=== PATIENT | male | born 1950 | race Caucasian/White ===

== ENCOUNTER 2018-01-16 09:03 | Emergency (ER) | payer MEDICARE, BC, SELFPAY ==
[2018-01-16 09:05] VITALS: BP 141/78; PULSE 74; RESP 16; TEMP 37; O2SAT 96; BMI 22.1
--- NOTE | 2018-01-16 09:33 | ED.VISSUMM ---
- ER Visit Summary Date of Service: 01/16/18 Chief Complaint: Right ear itching and rhinorrhea History of Present Illness: The patient is a 67 M presenting with essentially 4 months of nasal drainage and right ear itching. He has been on multiple rounds of antibiotics, most recently Augmentin which he completed 1 week ago. He has been seen at the [facility] clinic several times for this. He has felt drainage down the back of his throat which has caused some mild throat irritation but no significant throat pain. He has not been coughing or having any shortness of breath/wheezing. He has had sinus pressure but no facial swelling or redness. His right ear has been itching but it is not painful. Physical Examination: He does have fluid behind his right tympanic membrane but it does not appear infected. He has turbinate swelling bilaterally and clear secretions of both nares. He has posterior oropharyngeal erythema and drainage noted in the posterior oropharynx but no evidence of throat infection. His lungs are clear bilaterally with good air movement. Heart tones are regular without murmur. Abdomen is soft and nontender. No rash. No sinus tenderness or facial crepitus. Test Results: None performed Emergency Department Course and Treatment: At this point, I think putting him on another antibiotic would be doing him a disservice. This has been somewhat of a chronic problem for him and he may in fact have seasonal allergies. After discussion with him, we elected to treat him with Afrin for 3 days and try a short course of steroids. He has no cough and his lungs are clear so I do not think he needs a chest x-ray. I think he should follow-up with an ENT specialist given the chronicity of his issues. He was given a referral. Treatment Plan: Follow up with ENT Disposition: Home stable condition Impression: Initial encounter upper respiratory infection This note was generated with [employer] dictation software. It may contain incorrect words, spelling, and punctuation that were not noted in review of the chart prior to signing ED Disposition - Plan for ED Patient: Chief Complaint: Cold Sx Instructions: ED Upper Resp Infec No Abx Tx Prescriptions: Prednisone 40 mg PO DAILY 5 Days #10 tablet Referrals: Marcelo Martinez MD [STAFF PHYSICIAN] -
--- NOTE | 2018-01-16 09:39 | ED.DCSUM_ITS ---
- ER Visit Summary Date of Service: 01/16/18 Chief Complaint: [] History of Present Illness: The patient is a 67 M [] Physical Examination: [] Test Results: [] Emergency Department Course and Treatment: [] Treatment Plan: [] Disposition: [] Impression: [] This note was generated with [employer] dictation software. It may contain incorrect words, spelling, and punctuation that were not noted in review of the chart prior to signing ED Disposition - Plan for ED Patient: Chief Complaint: Cold Sx Instructions: ED Upper Resp Infec No Abx Tx Prescriptions: Prednisone 40 mg PO DAILY 5 Days #10 tablet Referrals: Marcelo Martinez MD [STAFF PHYSICIAN] -
[2018-01-16] MEDS: Oxymetazoline 0.05% 1 SPRAY SPRAY.BTL NASAL (09:46)
== END 2018-01-16 09:52 | disposition home or self-care (01) ==
LOC: ED 09:37
PROVIDERS: Emergency Provider Emergency Medicine; Family Provider Family Medicine; PCP Family Medicine
DX: J06.9 Acute upper respiratory infection, unspecified (principal); H93.8X1 Other specified disorders of right ear; J44.9 Chronic obstructive pulmonary disease, unspecified; Z79.899 Other long term (current) drug therapy; Z85.9 Personal history of malignant neoplasm, unspecified
CPT/HCPCS: 99282

== ENCOUNTER → 2018-08-26 12:43 | Outpatient (CLI) | payer MEDICARE, BC, SELFPAY ==
--- NOTE | 2018-08-26 12:46 | ECHOD_ITS ---
Reason For Study: Pre Op clearance Procedure This was a 2D Doppler, Color Flow transthoracic echocardiogram. The study was technically difficult. Exam performed in department. Left Ventricle Normal LV size. The estimated ejection fraction is 60 %. Stage 1 diastolic dysfunction. Transmitral doppler flow suggestive of impaired relaxation of left ventricle. No regional wall motion abnormalities noted. Right Ventricle Normal RV size. Normal systolic function. Atria Normal left atrium. Normal right atrium. Mitral Valve Normal mitral valve. Tricuspid Valve Normal tricuspid valve. Aortic Valve The aortic valve is not well visualized. Pulmonic Valve Normal pulmonic valve. Great Vessels Normal aortic root. The pulmonary artery is normal size. Normal inferior vena cava. Pericardium/Pleural No pericardial effusion. MMode/2D Measurements & Calculations LVIDd: 4.7 cm IVSd: 0.94 cm Ao root diam: 3.5 cm LVIDs: 3.1 cm LVPWd: 0.99 cm RVDd: 3.0 cm FS: 34.8 % LAV(MOD-bp): 55.8 ml LA A4 area: 17.6 cm2 LA dimension(2D): 3.0 cm LAV(MOD-bp) Indexed: 29.2 ml/m2 LAV(MOD-sp2): 51.9 ml LAV(MOD-sp4): 50.9 ml RA A4 area: 13.4 cm2 Time Measurements MV dec time: 0.26 sec Doppler Measurements & Calculations MV E max ace: 67.9 cm/sec Lat Peak E' Ace: 9.0 cm/sec Med Peak E' Ace: 7.2 cm/sec MV A max ace: 80.7 cm/sec E/E' lat: 7.6 E/E' med: 9.5 MV E/A: 0.84 Ao V2 max: 101.8 cm/sec LV V1 max: 78.3 cm/sec PA V2 max: 57.6 cm/sec Ao max P.2 mmHg LV V1 max P.5 mmHg TR max ace: 189.2 cm/sec TR max P.3 mmHg Interpretation Summary Normal LV size. The estimated ejection fraction is 60 %. Stage 1 diastolic dysfunction. Transmitral doppler flow suggestive of impaired relaxation of left ventricle Ordering Physician: Angel Hale Referring Physician: Aayush Soto Performed By: Nydia Garcia, ALECIA, RVT
== END ==
PROVIDERS: Family Provider Family Medicine; PCP Family Medicine; Referring Provider Internal Medicine Cardiovascular Disease; Visit Provider Internal Medicine Cardiovascular Disease
DX: Z01.810 Encounter for preprocedural cardiovascular examination (principal)
CPT/HCPCS: 93306

== ENCOUNTER → 2018-08-30 06:30 | Outpatient (CLI) | payer MEDICARE, BC, SELFPAY ==
--- NOTE | 2018-08-30 10:32 | STRESSREP ---
Stress Test Report Exercise myocardial perfusion stress test. 68-year-old man with a lesion for preoperative surgery. Stress protocol: Resting EKG demonstrates normal sinus rhythm with a rate of 66 bpm normal intervals noted resting blood pressure 144/82 mmHg. The patient exercised according to regular Krystian protocol for total duration of 3 minutes and 45 seconds attaining a maximum heart rate of 151 bpm which was 100% of maximum predicted heart rate the maximum workload was 5.5 metabolic equivalents. The patient maintained sinus rhythm throughout the recording. At rest there were no ST or T wave changes noted suggest abnormal flow reserve at peak infusion no ST or T wave changes were noted suggest abnormal flow reserve. No clinical angina was noted the resting blood pressure is 144/82 with a peak blood pressure 180/70 6 cm of mercury. Myocardial perfusion protocol. 12.0 mCi of technetium 99m sestamibi was injected at rest. Patient exercised according to regular Krystian protocol for 3 minutes and 45 seconds attaining 5.5 metabolic equivalents at peak exercise 35.7 mCi of technetium 99m sestamibi was injected stress images were obtained stress and rest images were reconstructed and compared in the short axis vertical long horizontal long axis. Gated images were also obtained the next Perfusion SPECT analysis: Review of the stress images demonstrate normal uptake of tracer noted in all areas of the myocardium. The resting images similarly demonstrate normal uptake of tracer noted in all areas of the myocardium. No areas of reversibility are noted suggest ischemia no previous infarct is noted. Gated SPECT analysis: The gated ejection fraction is noted to be 70%. Conclusion: Normal pharmacologic myocardial perfusion stress test. Preserved ejection fraction.
== END ==
PROVIDERS: Family Provider Family Medicine; PCP Family Medicine; Referring Provider Internal Medicine Cardiovascular Disease; Visit Provider Internal Medicine Cardiovascular Disease
DX: Z01.810 Encounter for preprocedural cardiovascular examination (principal)
CPT/HCPCS: 78452; 93017; A9500; A4216

== ENCOUNTER 2024-04-23 12:27 | Inpatient (IN) | payer MEDICARE, OTHER, SELFPAY ==
[2024-04-23] VITALS (7 sets, daily range): BP systolic 124–158; BP diastolic 66–74; PULSE 60–93; RESP 16–25; TEMP 36.1–36.6; O2SAT 90–98; BMI 21.1; BMI 20.9
--- NOTE | 2024-04-23 12:43 | EKG12_ITS ---
Test Reason : SOB Blood Pressure : / mmHG Vent. Rate : 066 BPM Atrial Rate : 066 BPM P-R Int : 114 ms QRS Dur : 080 ms QT Int : 390 ms P-R-T Axes : 059 003 060 degrees QTc Int : 408 ms Normal sinus rhythm Normal ECG Confirmed by ROSALIE CALIX, JORGITO ([id number]), senior editor MEDARDO CHRISTINE ([id number]) on 04/27/2024 9:36:19 AM Referred By: Confirmed By:ASHLEIGH WIGGINS MD
--- NOTE | 2024-04-23 12:44 | EDS_ITS ---
HPI History of Present Illness Chief Complaint: Shortness of Breath Narrative Narrative: 73-year-old male, former smoker, past medical history of hypertension hyperlipidemia presents with shortness of breath that he has had for 3 weeks. He has occasional cough but no fevers or chills. He states he also gets dyspnea on exertion. Initially he had gone to the [facility] approximately 2 weeks ago and finished a Z-Maxim and was given prednisone as well. Today, he went to the [facility] urgent care. He states he received a phone call after he had left and received prescriptions for an albuterol inhaler and Tessalon. Chest x- ray had been performed, and the provider called him back and told him that his right lung was half full of fluid with pneumonia. After discussion with the emergency physician, patient reports that he was told to come to the emergency department for further evaluation. [facility] Medical History Acute rhinosinusitis URI (upper respiratory infection) Elevated blood pressure reading in office without diagnosis of hypertension (~2014) GERD (gastroesophageal reflux disease) Essential (primary) hypertension Hyperlipidemia Abdominal aortic aneurysm (AAA) Home Medications ?Medication ?Instructions ?Recorded ?Last Taken ?Type pravastatin 40 mg tablet 40 mg PO DAILY 01/16/18 Unknown History aspirin 81 mg tablet,delayed 81 mg PO DAILY 08/17/18 Unknown History release (Adult Low Dose Aspirin) lisinopril 5 mg tablet 5 mg PO DAILY #90 tabs 08/18/18 Unknown Rx fexofenadine 180 mg tablet 180 mg PO DAILY #30 tabs 07/29/23 Unknown Rx prednisone 50 mg tablet 50 mg PO DAILY #5 tabs 07/29/23 Unknown Rx azithromycin 250 mg tablet See Rx Instructions PO .COMPLEX #6 04/15/24 Unknown Rx tabs Allergy/AdvReac Type Severity Reaction Status Date / Time No Known Allergies Allergy Verified 04/23/24 12:29 Family History Father Heart disease Hypertension Myocardial infarction TAA Sister Hypertension Mother Hypertension Surgical History History of ear surgery History of inguinal hernia repair Social History Smoking Status: Former smoker ROS ROS ED ROS Narrative Constitutional: No fever, no chills. HEENT: No sore throat. No neck pain. No loss of vision. No rhinorrhea. Cardiovascular: No chest pain. No palpitations. No pedal edema. Respiratory: Positive cough, 3 weeks of dyspnea on exertion and shortness of breath. Abdominal: No abdominal pain. No nausea. No vomiting. Genitourinary: No dysuria. No hematuria. Musculoskeletal: No myalgias. No arthralgias. Neurologic: No headaches. No dizziness. No lightheadedness. Skin: No rash. No change in color. Psychiatric: No depression. No anxiety. EXAM Physical Exam Narrative Exam Narrative: Afebrile. Vital signs noted. HEENT: Normocephalic. Atraumatic. PERRL, EOMI. Neck soft and supple. No point tenderness or step off. Cardiovascular: Regular rate and rhythm. No murmurs, rubs, or gallops appreciated. Respiratory: No tachypnea. Lungs clear to auscultation bilaterally. Decreased breath sounds right base about senior care up through lung field. Gastrointestinal: Abdomen soft, nontender, with normoactive bowel sounds. No rebound or guarding. Neurological: Awake. Alert. Nonfocal, nonlateralizing. Skin: No rash. Normal color. No pallor. Musculoskeletal: No pedal edema. Full range of motion extremities. Const Vital Signs: 04/23/24 12:29 04/23/24 12:36 04/23/24 12:58 Temperature 97.8 F Temperature Source Temporal Pulse Rate 88 Respiratory Rate 16 Respiratory Effort Normal Non-Labored Respiratory Depth Normal Respiratory Pattern Normal Blood Pressure 152/66 H Blood Pressure Mean 94 Pulse Ox 95 Oxygen Delivery Method Room Air Room Air Room Air 04/23/24 14:00 Temperature Temperature Source Pulse Rate 62 Respiratory Rate 25 H Respiratory Effort Respiratory Depth Respiratory Pattern Blood Pressure 144/74 H Blood Pressure Mean 97 Pulse Ox 96 Oxygen Delivery Method Room Air MDM MDM MDM Narrative Medical decision making narrative: Concern is for pleural effusion. With it being reportedly one-sided, suspicion is higher for transudate versus exudate. Also the differential lipid CHF versus COPD versus anemia for his increasing shortness of breath and dyspnea on exertion. I have low suspicion for ACS because the history and physical does not support ischemic pain. Initially, I discussed with the patient that on the weekend at this facility, I have no means to have ultrasound-guided thoracentesis performed. I will look for other reasons for him to be short of breath, but it is suspected that he has more of a pleural effusion. Also the differential would be COPD as he is a former smoker but quit in 2010. He may have CHF as well. EKG was obtained and interpreted by myself independently as normal sinus rhythm at 66 bpm without ectopy or acute ST changes. No STEMI. I reviewed his laboratory work and he has normal white count of 6.9 with hemoglobin normal at 13.9, hematocrit 41.8, platelet count normal at 283. Sodium is low at 129 with normal potassium of 4.1, chloride 96. This may be mild dehydration as well. Creatinine slightly elevated at 1.36, ALT low at 14 with AST 17. Alk phos is slightly elevated at 132 which I think is nonspecific. Troponin is normal at 7 so I doubt ACS/non-STEMI. I feel this is a 6-hour troponin as he has been having shortness of breath for 3 weeks. BNP is normal at 38.5 so I doubt CHF. CT of the chest without contrast does show a moderate to large pleural effusion with atelectasis but no pneumothorax, no mass or pneumonia. I do not feel antibiotics are indicated. His ambulatory pulse ox was 87 to 88% on room air. Given his hypoxia, large pleural effusion, and hyponatremia, I discussed the patient with Dr. Raúl penn for admission to the PCU. He is in stable condition. History & Record Review Discussion w/independent historian: Patient Lab Data Attestation: I reviewed the patient's lab results. Labs: Laboratory Results - last 24 hr 04/23/24 12:50 WBC 6.9 RBC 4.76 Hgb 13.9 Hct 41.8 MCV 87.8 MCH 29.2 MCHC 33.3 RDW Std Deviation 43.0 RDW Coeff of Wilbert 13.3 Plt Count 283 MPV 9.4 Immature Gran % (Auto) 0.600 Neut % (Auto) 82.2 H Lymph % (Auto) 10.1 L [place] % (Auto) 6.4 Eos % (Auto) 0.6 Baso % (Auto) 0.1 Absolute Neuts (auto) 5.7 Absolute Lymphs (auto) 0.70 L Nucleated RBC % 0 Sodium 129 L Potassium 4.1 Chloride 96 L Carbon Dioxide 26.0 Anion Gap 7 BUN 13 Creatinine 1.36 H Estim Creat Clear Calc 45.47 Est GFR (MDRD) Af Amer 66 Est GFR (MDRD) Non-Af 54 L BUN/Creatinine Ratio 9.6 L Glucose 104 Calcium 8.5 Total Bilirubin 0.60 AST 17 ALT 14 L Alkaline Phosphatase 132 H Troponin I High Sens 7 B-Natriuretic Peptide 38.5 Total Protein 6.5 Albumin 3.1 L Globulin 3.4 Albumin/Globulin Ratio 0.9 Radiography Diagnostic Testing: Clinical Impression(s) from Imaging Studies Chest CT 04/23/24 12:49 IMPRESSION: 1. Moderate to large right pleural effusion with compressive atelectatic changes of the right lower lobe. 2. Diffuse emphysematous changes. 3. No focal consolidation otherwise is seen. Electronically Signed: Rodolfo Lerma MD at 13:46 EDT , Discharge Plan Dx/Rx/DC Orders Clinical Impression: Pleural effusion on right, Hypoxia, SOB (shortness of breath), Hyponatremia Disposition Disposition: Acute Care Hospital [facility]
--- NOTE | 2024-04-23 12:49 | CT_ITS ---
INDICATION: Pleural effusion EXAMINATION: CT CHEST WITHOUT CONTRAST - CT Chest W/O Contrast Injection TECHNIQUE: Helically acquired images were obtained of the chest. The protocol utilizes one or more of the following dose reduction techniques: automated exposure control, adjustment of mA and/or kV according to patient size,and/or use of iterative reconstruction technique. IV Contrast dosage and agent: None. RADIATION DOSAGE (If Supplied By Facility): CTDIvol = ( 10.42 ) mGy, DLP = ( 484.47 ) mGycm COMPARISON: Prior study dated: 09/21/2010 FINDINGS: LUNGS, PLEURA AND LARGE AIRWAYS: Large right pleural effusion with compressive atelectatic changes of the right lower lobe. Right upper pleural calcifications. Otherwise moderate to severe emphysematous changes bilaterally. No focal consolidation is seen. No pneumothorax. THYROID: No thyroid lesions. HEART AND PERICARDIUM: Heart size is normal. Possible trace of pericardial effusion. CORONARY ARTERIES: Coronary artery calcification is seen. VESSELS: Atherosclerotic calcifications of the thoracic aorta without evidence of aneurysm. MEDIASTINUM AND NICOLÁS: No mediastinal or hilar adenopathy. Esophagus is unremarkable. No hiatal hernia. UPPER ABDOMEN: Partially visualized proximal abdominal aortic aneurysm measuring up to 4.6 cm with an endoluminal stent. BONES: No suspicious lytic or blastic abnormality. CT/Chest without Contrast IMPRESSION: 1. Moderate to large right pleural effusion with compressive atelectatic changes of the right lower lobe. 2. Diffuse emphysematous changes. 3. No focal consolidation otherwise is seen. Electronically Signed: Rodolfo Lerma MD at 13:46 EDT ,
--- NOTE | 2024-04-23 12:58 | NURSING ---
NO OLD EKGS
[2024-04-23 12:59] LABS: Absolute Neutrophil Count 5.7 X10^3/uL (2.0-7.7); Basophil# 0.01 X10^3/uL; Basophil% 0.1 % (0-1); Eosinophil# 0.04 X10^3/uL; Eosinophils% 0.6 % (0-5); Hematocrit 41.8 % (40-54); Hemoglobin 13.9 g/dL (13.0-16.5); Lymphocyte % 10.1 % (19-41); Mean Corp Hgb Conc 33.3 g/dL (32-36); Mean Corpuscular Hgb 29.2 pg (27.0-32.0); Mean Corpuscular Volume 87.8 fL (80-94); Mean Platelet Vol. 9.4 fl (6.2-12.0); Monocyte# 0.44 X10^3/uL; Monocyte% 6.4 % (0-10); NRBC Flagged by Analyzer 0 % (0-5); Neutrophil # 5.68 X10^3/uL (2.7-7.7); Neutrophil % 82.2 % (47-70); Platelet Count 283 K/mm3 (150-450); RBC Distribution Width CV 13.3 % (11.6-14.6); Red Blood Count 4.76 M/mm3 (4.6-6.2); White Blood Count 6.9 K/mm3 (4.4-11.0)
[2024-04-23 13:28] LABS: ALB/GLOB Ratio 0.9 RATIO (0.9-2.4); AST(SGOT) 17 U/L (15-37); Alanine Aminotransfer ALT/SGPT 14 U/L (16-61); Albumin, Serum 3.1 g/dL (3.2-5.0); Alkaline Phosphatase 132 U/L (45-117); Anion Gap 7 (5-15); BUN 13 mg/dL (7-18); BUN/Creat Ratio 9.6 RATIO (10-20); Calcium,Total 8.5 mg/dL (8.5-10.1); Chloride 96 mmol/L (98-107); Creatinine, Serum 1.36 mg/dL (0.70-1.30); EST Glomerular Filtration Rate 54 mL/min (>60); Est Glom Filt Rate - Afr Amer 66 mL/min (>60); Estimated Creatinine Clearance 45.47 ml/min; Globulin 3.4 g/dL (2.2-4.2); Glucose 104 mg/dL (74-106); Potassium 4.1 mmol/L (3.5-5.1); Protein, Total 6.5 g/dL (6.4-8.2); Sodium Level 129 mmol/L (136-145); Troponin-I HS 7 pg/mL (3.0-78.0)
[2024-04-23 13:49] LABS: BNP,B-Type NATRIURETIC PEPTIDE 38.5 pg/mL (0-100)
--- NOTE | 2024-04-23 14:13 | PCM.HP.STD ---
HPI - General General Date of Admission: 04/23/24 Date of Service: 04/23/24 Chief Complaint: Shortness of breath HPI Narrative BUZZ PUGH, is a 73 M who presents with past medical history is again for emphysema, essential hypertension who presented with shortness of breath. Patient symptoms started 4 weeks prior to his admission. His symptoms initially started with cough which was productive. This later progressed to shortness of breath which was worsening with activity relieved with rest. Patient denied any subjective fever no chills. Denied any swelling involving both lower extremities. He had apparently been treated for bronchitis by his PCP with Zithromax as outpatient, His symptoms however did not improve necessitating patient presenting to the emergency department. In the ED workup including CT of the chest revealed moderate to large right-sided pleural effusion. Patient was also found to be hyponatremic. Subsequently admitted to monitored bed for further evaluation [facility] Medical History Acute rhinosinusitis URI (upper respiratory infection) Elevated blood pressure reading in office without diagnosis of hypertension (~2014) GERD (gastroesophageal reflux disease) Essential (primary) hypertension Hyperlipidemia Abdominal aortic aneurysm (AAA) Home Medications ?Medication ?Instructions ?Recorded ?Last Taken ?Type pravastatin 40 mg tablet 40 mg PO DAILY high cholesterol 01/16/18 04/22/24 History aspirin 81 mg tablet,delayed 81 mg PO DAILY heart health 08/17/18 04/22/24 History release (Adult Low Dose Aspirin) lisinopril 5 mg tablet 2.5 mg PO DAILY hypertension 04/23/24 04/22/24 History Allergy/AdvReac Type Severity Reaction Status Date / Time No Known Allergies Allergy Verified 04/23/24 12:29 Family History Father Heart disease Hypertension Myocardial infarction TAA Sister Hypertension Mother Hypertension Surgical History History of ear surgery History of inguinal hernia repair Social History Smoking Status: Former smoker ROS ROS Narrative GENERAL: denies fever, chills, night sweats, weight loss, anorexia HEENT: denies headache, sinus congestion, or drainage, dysphagia RESPIRATORY: cough, sputum production, shortness of breath, dyspnea on exertion CARDIAC: denies chest pain, palpitations, orthopnea, PND GASTROINTESTINAL: denies abdominal pain, nausea, vomiting, melena, GENITOURINARY: denies dysuria, urgency, frequency, heamaturia EXTREMITY: denies swelling MUSCULOSKELETAL: denies current joint pain or tenderness NEUROLOGIC: denies focal numbness, weakness, tingling HEMATOLOGIC: denies easy bruising and/or hemorrhage INTEGUMENT: denies rashes PSYCHIATRIC: denies suicidal or homicidal ideation Vital Signs Vital Signs Vital Signs: 04/23/24 12:29 04/23/24 12:36 04/23/24 12:58 Temperature 97.8 F Temperature Source Temporal Pulse Rate 88 Respiratory Rate 16 Respiratory Effort Normal Non-Labored Respiratory Depth Normal Respiratory Pattern Normal Blood Pressure 152/66 H Blood Pressure Mean 94 Pulse Ox 95 Oxygen Delivery Method Room Air Room Air Room Air 04/23/24 14:00 Temperature Temperature Source Pulse Rate 62 Respiratory Rate 25 H Respiratory Effort Respiratory Depth Respiratory Pattern Blood Pressure 144/74 H Blood Pressure Mean 97 Pulse Ox 96 Oxygen Delivery Method Room Air Weight Weight: 68.5 kg Body Mass Index (BMI) 21.1 Physical Exam Narrative GENERAL: cooperative HEENT: Atraumatic; normocephalic EYES; Anicteric, Normal Conjunctiva NECK; supple, normal thyroid, RESPIRATORY: Diminished to auscultation R >L CARDIOVASCULAR: Regular S1 S2, GI: soft, normoactive bowel sounds, : No Renal angle tenderness; EXTREMITIES: No edema, no clubbing, MUSCULOSKELETAL: no muscle wasting NEURO: Awake; no lateralizing signs. SKIN: No Rash PSYCH; Flat affect Results Lab / Micro Data 04/23/24 12:50 04/23/24 12:50 Labs: Laboratory Results - last 24 hr 04/23/24 12:50: WBC 6.9, RBC 4.76, Hgb 13.9, Hct 41.8, MCV 87.8, MCH 29.2, MCHC 33.3, RDW Std Deviation 43.0, RDW Coeff of Wilbert 13.3, Plt Count 283, MPV 9.4, Immature Gran % (Auto) 0.600, Neut % (Auto) 82.2 H, Lymph % (Auto) 10.1 L, [place] % (Auto) 6.4, Eos % (Auto) 0.6, Baso % (Auto) 0.1, Absolute Neuts (auto) 5.7, Absolute Lymphs (auto) 0.70 L, Nucleated RBC % 0, Sodium 129 L, Potassium 4.1, Chloride 96 L, Carbon Dioxide 26.0, Anion Gap 7, BUN 13, Creatinine 1.36 H, Estim Creat Clear Calc 45.47, Est GFR (MDRD) Af Amer 66, Est GFR (MDRD) Non-Af 54 L, BUN/Creatinine Ratio 9.6 L, Glucose 104, Calcium 8.5, Total Bilirubin 0.60, AST 17, ALT 14 L, Alkaline Phosphatase 132 H, Troponin I High Sens 7, B-Natriuretic Peptide 38.5, Total Protein 6.5, Albumin 3.1 L, Globulin 3.4, Albumin/Globulin Ratio 0.9 Imaging Radiology Impression Chest CT 04/23/24 12:49 IMPRESSION: 1. Moderate to large right pleural effusion with compressive atelectatic changes of the right lower lobe. 2. Diffuse emphysematous changes. 3. No focal consolidation otherwise is seen. Electronically Signed: oRdolfo Lerma MD at 13:46 EDT , Assessment & Plan Assessment/Plan (1) Pleural effusion on right: PLAN: Plan Patient is a 73-year-old gentleman presented with progressive shortness of breath found to have significant right-sided pleural effusion and hyponatremia admitted to a monitored bed for further management 1. Acute dyspnea ? Secondary to right-sided pleural effusion suspected congestive heart failure and emphysema. Patient has been admitted to a monitored bed with treatment of the underlying etiology. Patient placed on supplemental oxygen titrated to keep oxygen saturation greater than 90 2. Right-sided pleural effusion ? Parapneumonic versus congestive heart failure. Patient started on diuretic therapy, placed on fluid restriction, strict input output, daily weight ordered BMP and a 2D echo. If patient right-sided pleural effusion does not respond to diuretic therapy patient may need to undergo ultrasound-guided thoracocentesis for further evaluation to rule out other possible etiology including malignancy 3. COPD with acute exacerbation - Patient started on bronchodilator treatment, systemic steroid as well as antibiotic therapy. Patient placed on oxygen titrated to keep saturation greater than 90. 4. Hyponatremia ? Fluid overload status versus SIADH. Ordered urine sodium serum and urine osmole. Patient currently on diuretic therapy repeat labs ordered for a.m. 5. Renal failure ? Baseline creatinine unknown.?? Vascular congestion from congestive heart failure. Patient being managed with diuretic therapy as discussed above ordered renal ultrasound 6. Dyslipidemia -Patient is on statin therapy, continued at home dose 7. Hypertension - Blood pressure controlled, home medications continued with dose adjustment as needed 8. DVT prophylaxis -SC heparin Advance planning; did discuss with the patientregarding advanced directives as well as CODE STATUS. Did explain the various scenarios involved ( FULL CODE, DNR CCA, DNR CCA with no intubation, and DNR CC and what each meant) patient elected to remain full code with CPR and intubation if needed. Order was placed. Time spent on discussion 16 minutes. Charges/Coding Multi Select Codes Visit Charges Visit Charges: 63503 Init [place] [id number] Hospitalists' Procedures Procedures: 62116 Advncd Care Plan 30 Min
--- NOTE | 2024-04-23 14:45 | NURSING ---
PCU KITTOE HYPOXIA, PLEURAL EFFSUION, COPD
--- NOTE | 2024-04-23 15:03 | ECHOCS_ITS ---
Reason For Study: CONGESTIVE HEART FAILURE Procedure This was a 2D Doppler, Color Flow transthoracic echocardiogram. The study was technically difficult. The study was technically limited. Contrast injection was performed. Exam performed portable in patient room. Left Ventricle Normal LV size. The estimated ejection fraction is 70 %. No evidence for diastolic dysfunction. No regional wall motion abnormalities noted. Right Ventricle Normal RV size. Normal systolic function. Atria Normal left atrium. Normal right atrium. No doppler evidence for ASD. Mitral Valve There is no mitral valve stenosis. No mitral valve insufficiency. Tricuspid Valve There is no tricuspid stenosis. Unable to estimate RV systolic pressure due to inadequate jet, pulmonary artery pressure probably normal. Aortic Valve Trisinus/trileaflet aortic valve. There is no aortic stenosis. No aortic valve insufficiency. Pulmonic Valve There is no pulmonic valvular stenosis. No pulmonic valve insufficiency. Great Vessels Normal aortic root. Pericardium/Pleural Trivial pericardial effusion. Medication Diluted definity 1ml given slow IV push to enhance endocardial definition. MMode/2D Measurements & Calculations LVIDd: 3.1 cm IVSd: 0.90 cm Ao root diam: 2.9 cm LVIDs: 1.6 cm LVPWd: 0.97 cm RVDd: 3.0 cm FS: 50.1 % LAV(MOD-sp4): 6.6 ml LVAd ap4: 23.3 cm2 LVAd ap2: 21.7 cm2 LVLd ap4: 7.8 cm LVLd ap2: 7.5 cm EDV(MOD-sp4): 57.0 ml EDV(MOD-sp2): 52.7 ml EDV(sp4-el): 59.5 ml EDV(sp2-el): 53.5 ml LVAs ap4: 11.4 cm2 LVAs ap2: 12.1 cm2 LVLs ap4: 6.4 cm LVLs ap2: 6.3 cm ESV(MOD-sp4): 16.9 ml ESV(MOD-sp2): 20.3 ml ESV(sp4-el): 17.3 ml ESV(sp2-el): 19.6 ml EF(MOD-sp4): 70.4 % EF(MOD-sp2): 61.5 % EF(sp4-el): 70.9 % SV(MOD-sp4): 40.2 ml SV(MOD-sp2): 32.4 ml SV(sp4-el): 42.2 ml LA A4 area: 4.9 cm2 LA dimension(2D): 3.0 cm RA A4 area: 5.1 cm2 TAPSE: 1.5 cm Time Measurements MV dec time: 0.19 sec Doppler Measurements & Calculations MV E max ace: 51.7 cm/sec Lat Peak E' Ace: 9.2 cm/sec Med Peak E' Ace: 9.0 cm/sec MV A max ace: 77.0 cm/sec E/E' lat: 5.6 E/E' med: 5.8 MV E/A: 0.67 Ao V2 max: 176.7 cm/sec PA V2 max: 135.6 cm/sec MV dec slope: 270.1 cm/sec2 Ao max P.5 mmHg Ao V2 mean: 125.4 cm/sec Ao mean P.0 mmHg Ao V2 VTI: 26.1 cm ECHO/Echo Complete W/ Contrast Interpretation Summary The estimated ejection fraction is 70 %. No evidence for diastolic dysfunction. Trivial pericardial effusion. Ordering Physician: Raúl Lam Referring Physician: MD Brent Castro Performed By: Maria Luisa Chavez RDCS
[2024-04-23] MEDS: 0.9% Saline Lock 10 ML Syringe IV (15:45)
[2024-04-23] MEDS: Furosemide 40 MG/4 ML Vial IV ×2 (15:45→21:14)
[2024-04-23 16:02] LABS: Troponin-I HS 7 pg/mL (3.0-78.0)
[2024-04-23 16:04] LABS: BNP,B-Type NATRIURETIC PEPTIDE 41.1 pg/mL (0-100)
[2024-04-23 17:01] LABS: Urine Sodium 109 mmol/L (Not Establ.)
[2024-04-23 17:33] LABS: Osmolality, Urine 232 mOsm/KG
[2024-04-23 18:43] LABS: Troponin-I HS 8 pg/mL (3.0-78.0)
[2024-04-23 19:56] LABS: Osmolality, Serum 275 mOsm/KG (280-301)
[2024-04-23] MEDS: Ipratropium/Albuterol Sulfate 3 ML AMPUL.NEB INHALATION ×2 (20:23→23:58)
[2024-04-23] MEDS: Heparin Injection (Vial) 5,000 UNIT/ML VIAL 5000 UNIT SC (21:14)
[2024-04-23] MEDS: Cefdinir 300 MG Capsule PO (21:14)
[2024-04-23] MEDS: guaiFENesin 10 ML UDC (200MG/10ML) 20 ML PO (21:16)
[2024-04-23] MEDS: Calcium Carbonate 500 MG Tablet 1000 MG PO (22:15)
[2024-04-24] VITALS (8 sets, daily range): BP systolic 102–123; BP diastolic 54–73; PULSE 88–112; RESP 14–20; TEMP 36.3–36.7; O2SAT 91–901
[2024-04-24] MEDS: Ipratropium/Albuterol Sulfate 3 ML AMPUL.NEB INHALATION ×6 (03:46→23:06)
[2024-04-24] MEDS: Furosemide 40 MG/4 ML Vial IV (05:36)
[2024-04-24 05:49] LABS: Absolute Lymphocyte Count 0.19 X10^3/uL (0.83-4.51); Absolute Neutrophil Count 3.7 X10^3/uL (2.0-7.7); Basophil# 0.01 X10^3/uL; Basophil% 0.3 % (0-1); Hematocrit 43.6 % (40-54); Hemoglobin 14.4 g/dL (13.0-16.5); Lymphocyte # 0.19 X10^3/ul (0.83-4.51); Lymphocyte % 4.8 % (19-41); Mean Corpuscular Hgb 28.5 pg (27.0-32.0); Mean Corpuscular Volume 86.3 fL (80-94); Mean Platelet Vol. 9.7 fl (6.2-12.0); Monocyte# 0.06 X10^3/uL; Monocyte% 1.5 % (0-10); NRBC Flagged by Analyzer 0 % (0-5); Neutrophil # 3.65 X10^3/uL (2.7-7.7); Neutrophil % 92.4 % (47-70); POSITIVE DIFFERENTIAL YES; Platelet Count 304 K/mm3 (150-450); RBC Distribution Width CV 13.3 % (11.6-14.6); RBC Distribution Width SD 41.5 fl (35.1-43.9); Red Blood Count 5.05 M/mm3 (4.6-6.2)
[2024-04-24 06:24] LABS: Anion Gap 12 (5-15); BUN 21 mg/dL (7-18); BUN/Creat Ratio 13.4 RATIO (10-20); Calcium,Total 9.4 mg/dL (8.5-10.1); Chloride 94 mmol/L (98-107); Creatinine, Serum 1.57 mg/dL (0.70-1.30); EST Glomerular Filtration Rate 46 mL/min (>60); Est Glom Filt Rate - Afr Amer 56 mL/min (>60); Estimated Creatinine Clearance 39.22 ml/min; Glucose 180 mg/dL (74-106); Magnesium 2.3 mg/dL (1.6-2.6); Phosphorus 4.6 mg/dL (2.5-4.9); Potassium 3.5 mmol/L (3.5-5.1); Sodium Level 129 mmol/L (136-145)
[2024-04-24 08:49] LABS: LDH 167 U/L (87-241)
[2024-04-24] MEDS: Heparin Injection (Vial) 5,000 UNIT/ML VIAL 5000 UNIT SC ×2 (12:12→21:23)
[2024-04-24] MEDS: Cefdinir 300 MG Capsule PO ×2 (12:12→21:23)
--- NOTE | 2024-04-24 12:17 | PCM.PN.HOSP ---
Reason for Visit Reason for Visit: Diagnoses Pleural effusion, not elsewhere classified (04/23/24) Subjective Subjective Saw patient at bedside this morning. Patient was sitting up comfortably in bed, conversing normally, in no acute distress. He reports feeling similar to yesterday, no shortness of breath at rest but does have some shortness of breath and chest heaviness with exertion. Has had decent urine output on IV Lasix but no change in his respiratory status. No other new concerns today. Objective Data Objective Data Vital Signs: Vital Signs Temp Pulse Resp BP Pulse Ox O2 Del Method 97.9 F 112 H 14 117/73 94 Room Air 04/24/24 12:05 04/24/24 12:05 04/24/24 12:05 04/24/24 12:05 04/24/24 12:05 04/24/24 12:05 Oxygen Delivery Method Room Air Weight: 68.2 kg Body Mass Index (BMI) 20.9 Intake & Output: Intake and Output for Last 24 Hours 04/22/24 04/23/24 04/24/24 23:59 23:59 23:59 Intake Total 240 / 240 Output Total 2650 / 2650 450 / 450 Balance -2410 / -2410 -450 / -450 Medical Nutrition Assessment Dietitian: Malnutrition Criteria Met Start: 04/24/24 10:26 Freq: Status: Active Protocol: Document 04/24/24 10:26 JORDAN (Rec: 04/24/24 10:26 JORDAN [id number]) Nutrition Malnutrition Evidence of Malnutrition Exists Yes Malnutrition (severe): Acute Illness/Injury Evidenced By Suboptimal Energy Intake ( Severe),Weight Loss (Severe) Clinical Problem Acute Disease or Injury Related Malnutrition Etiology related to inadequate energy intake Signs/Symptoms as evidenced by 5% unintended wt loss and po intake meeting <75% of estimated nutritional needs 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 Lab / Micro Data 04/24/24 05:06 04/24/24 05:06 Labs: Laboratory Results - last 24 hr 04/23/24 12:50: WBC 6.9, RBC 4.76, Hgb 13.9, Hct 41.8, MCV 87.8, MCH 29.2, MCHC 33.3, RDW Std Deviation 43.0, RDW Coeff of Wilbert 13.3, Plt Count 283, MPV 9.4, Immature Gran % (Auto) 0.600, Neut % (Auto) 82.2 H, Lymph % (Auto) 10.1 L, [place] % (Auto) 6.4, Eos % (Auto) 0.6, Baso % (Auto) 0.1, Absolute Neuts (auto) 5.7, Absolute Lymphs (auto) 0.70 L, Nucleated RBC % 0, Sodium 129 L, Potassium 4.1, Chloride 96 L, Carbon Dioxide 26.0, Anion Gap 7, BUN 13, Creatinine 1.36 H, Estim Creat Clear Calc 45.47, Est GFR (MDRD) Af Amer 66, Est GFR (MDRD) Non-Af 54 L, BUN/Creatinine Ratio 9.6 L, Glucose 104, Calcium 8.5, Total Bilirubin 0.60, AST 17, ALT 14 L, Alkaline Phosphatase 132 H, Troponin I High Sens 7, B-Natriuretic Peptide 38.5, Total Protein 6.5, Albumin 3.1 L, Globulin 3.4, Albumin/Globulin Ratio 0.9 04/23/24 15:10: Troponin I High Sens 7, B-Natriuretic Peptide 41.1 04/23/24 15:23: Urine Osmolality 232, Ur Random Sodium 109 04/23/24 18:15: Serum Osmolality 275 L, Troponin I High Sens 8 04/24/24 05:06: WBC 4.0 L, RBC 5.05, Hgb 14.4, Hct 43.6, MCV 86.3, MCH 28.5, MCHC 33.0, RDW Std Deviation 41.5, RDW Coeff of Wilbert 13.3, Plt Count 304, MPV 9.7, Immature Gran % (Auto) 1.000 H, Neut % (Auto) 92.4 H, Lymph % (Auto) 4.8 L, [place] % (Auto) 1.5, Eos % (Auto) 0.0, Baso % (Auto) 0.3, Absolute Neuts (auto) 3.7, Absolute Lymphs (auto) 0.19 L, Nucleated RBC % 0, Sodium 129 L, Potassium 3.5, Chloride 94 L, Carbon Dioxide 23.0, Anion Gap 12, BUN 21 H, Creatinine 1.57 H, Estim Creat Clear Calc 39.22, Est GFR (MDRD) Af Amer 56 L, Est GFR (MDRD) Non-Af 46 L, BUN/Creatinine Ratio 13.4, Glucose 180 H, Calcium 9.4, Phosphorus 4.6, Magnesium 2.3, Lactate Dehydrogenase 167, TSH 1.30 Micro: Microbiology 04/23/24 22:18 Sputum, Expectorated/Coughed Gram Stain - Final 04/23/24 14:21 Mucosa - Nose Respiratory Panel (PCR) - Final Radiography Diagnostic Testing: Radiology Impression Chest CT 04/23/24 12:49 IMPRESSION: 1. Moderate to large right pleural effusion with compressive atelectatic changes of the right lower lobe. 2. Diffuse emphysematous changes. 3. No focal consolidation otherwise is seen. Electronically Signed: Rodolfo Lerma MD at 13:46 EDT , Physical Exam Const alert, oriented x3, no apparent distress and average body habitus Constitutional Narrative: Pleasant elderly male, sitting up comfortably in bed, conversing normally, in no acute distress. General Appearance: cooperative and comfortable HEENT normocephalic, head/scalp atraumatic, hearing grossly normal bilaterally, nasal mucous membranes and turbinates normal and moist oral mucous membranes Eyes PERRL, EOMs intact bilaterally and conjunctivae normal Neck full ROM Chest inspection of chest normal Resp normal respiratory effort and no use of accessory muscles Resp Narrative: Breathing comfortably on room air at rest. Significantly reduced breath sounds in right lung base up to mid right lung, otherwise good air movement throughout, no wheezing or crackles noted. Cardio regular rate, regular rhythm, no murmurs and peripheral pulses 2+ throughout GI normal to inspection, nondistended, normoactive bowel sounds, soft to palpation, non-tender and non-distended Back/Spine normal ROM Extremity normal to inspection, full ROM and no pedal edema Skin no rashes or lesions noted Neuro moves all extremities and no focal motor deficits Speech: speech normal Psych mental status grossly normal Assessment & Plan Assessment/Plan (1) Pleural effusion on right: (2) SOB (shortness of breath): (3) Hyponatremia: PLAN: Plan Patient is a 73-year-old male who presented to [facility] ED on 04/23/2024 with worsening shortness of breath. 1. Large right-sided pleural effusion with acute dyspnea on exertion ? Presented with 1 month history of worsening shortness of breath with exertion. CT chest on admit showed moderate to large right pleural effusion with compressive atelectasis of right lower lobe, along with diffuse emphysematous changes. Unclear etiology of pleural effusion at this time but differential does include lung cancer given extensive previous smoking history. Parapneumonic seems less likely as patient afebrile and noninfectious appearing. Heart failure cannot be ruled out. Radiology consulted for ultrasound guided diagnostic and therapeutic thoracentesis. Echo ordered. BNP normal on admit, treated with low-dose IV Lasix on admission, discontinued on 04/24. Can consider pulmonology consult for further evaluation. 2. 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 CT chest with findings of emphysema as noted above. Respiratory PCR panel and sputum culture negative. Treated with 4 doses of IV Solu-Medrol on admit, okay to de-escalate to prednisone on 04/25 with plan for 5-day course of steroids total. Continue albuterol as needed. No need for antibiotics at this time. Can consider pulmonology consult as noted above while inpatient; should establish with pulmonology in the office after discharge. 3. Hyponatremia ? Sodium 129 on admit, remained at 129 on hospital day 2. Hyponatremia studies with urine osmolality 232, urine sodium 109. TSH normal. Seems that hyponatremia may be most consistent with either SIADH or possibly paraneoplastic. Hold on IV fluids for now, continue to monitor sodium level daily. 4. Elevated creatinine ? Creatinine 1.36 on admit, worsened to 1.57 on hospital day 2. Baseline unknown. Has had good urine output. IV Lasix started on admission as noted above, discontinued on 04/24. Continue to monitor BMP daily. Chronic medical conditions: ? Hypertension: Holding home low-dose lisinopril given elevated creatinine as noted above. ? Hyperlipidemia: Continue home pravastatin. ? History of AAA: Continue outpatient monitoring. ? Former tobacco abuse: Extensive smoking history, quit in 2010. Encouraged continued cessation. DVT prophylaxis: Lovenox CODE STATUS: Full code, verified Expected disposition: Home, TBD Total clinical time spent by myself addressing the patient's medical issues, reviewing all the data, and collaborating with patient's care team: 35 minutes. Charges/Coding Visit Charges Inpatient E&M: 46763 Subs Hosp L2
[2024-04-24] MEDS: Aspirin E.C. 81 MG Tablet PO (12:19)
[2024-04-24] MEDS: Pravastatin 40 MG Tablet PO (12:19)
[2024-04-24] MEDS: 0.9% Saline Lock 10 ML Syringe IV ×2 (14:33→18:16)
[2024-04-24] MEDS: Phenol/Sodium Phenolate 180ML 3 SPRAY MUCOUS MEM ×2 (16:25→21:32)
[2024-04-24] MEDS: Furosemide 20 MG/2 ML VIAL IV (18:16)
[2024-04-25] VITALS (19 sets, daily range): BP systolic 92–137; BP diastolic 55–67; PULSE 87–104; RESP 16–20; TEMP 36.1–36.6; O2SAT 91–94
--- NOTE | 2024-04-25 | FLU_PTH ---
PATIENT: BUZZ PUGH LOC: [facility] U#:[id number] AGE/SX: 73/M ROOM: [facility] RE04/23/[address]: Dr. Raúl Lam MD : 1950 BED: 1 DIS: 05/02/2024 SPEC #: [id number] RECD: 04/25/24 14:19 STATUS: CLEMENT REQ #: [id number] HAI: 04/25/24 00:[address]: Maida Wheat DEPT: CYTOLOGY RECD BY: Elba Meadows ENTERED: 04/25/24 14:20 SP TYPE: Fluid OTHR DR: DO Dr. Brent Morton DO Dr. David Kittoe, MD Tissues: THORACIC FLUID Procedures: Special Stain Group II Surgery Specimen Level IV Cytospin Fluid HEADER OPERATION: Ultrasound guided right thoracentesis PRE-OP DIAGNOSIS: Pleural effusion TISSUE SUBMITTED: Thoracentesis fluid for cytology DIAGNOSIS CYTOLOGY Thoracentesis fluid for cytology (cytospin and cellblock): Atypical mesothelial proliferation. See note. SJ/mr 05/10/2024 COMMENT Immunohistochemistry ([id number]) supports the above diagnosis. The specimen is sent to [facility] for expert opinion, reviewed by Dr. Alexandre and the above diagnosis is rendered. Dr. Alexandre also commented. recommend clinical and radiologic correlation with biopsy if clinically indicated. The complete report is viewable in the patient's EMR. Case has been reviewed in consultation with Dr. Joya who concurs with the above diagnosis. IDC:AM CYTOLOGY STUDY Slides are reviewed. CYTOLOGY GROSS Received is 80 ml of red cloudy fluid labeled with the patient's name and and designated per the requisition as Thoracentesis. Submitted for cytology preparation including cell block. Mr 04/25/2024 TC:5 CPT: 95310,44676
--- NOTE | 2024-04-25 | IMM_PTH ---
PATIENT: BUZZ PUGH LOC: [facility] U#:[id number] AGE/SX: 73/M ROOM: [facility] RE04/23/[address]: Dr. Raúl Lam MD : 1950 BED: 1 DIS: 05/02/2024 SPEC #: [id number] RECD: 04/26/24 10:40 STATUS: SOUT REQ #: [id number] HAI: 04/25/24 00:[address]: Maida Wheat DEPT: IMMUNOHISTOCHEMISTRY RECD BY: Kenji Watkins ENTERED: 04/26/24 10:42 SP TYPE: IMMUNO OTHR DR: Dr. Sorin Guillory, DO Dr. Brent Martinez, DO Dr. Raúl Lam MD Tissues: THORACIC FLUID Procedures: RCC (add) NAPSIN A (add) Darius Ret (add) CK20 (add) CK5-6 (add) CK7 (add) CK8 (add) HEP PAR (add) KI-67 (add) TTF1 (add) Vimentin (add) Pankeratin (initial) MELAN-A (add) P40 (add) PSAP (add) CD68 (ADD) S-100 (add) PHYSICIAN & [place] [id number] SPECIMEN INFORMATION: Tissue Source: Thoracentesis fluid Clinical Info: Pleural effusion Specimen Number: [id number] CPT code: 25275,38490l97 METHODOLOGY: Deparaffinized sections of prefer/formalin-fixed tissue or PAP/DQ stained slides are incubated with monoclonal/polyclonal antibodies/oligonucleotide probes. Localization is made via biotin free immunoperoxidase method. Appropriate controls are performed and reacted as expected. Results on target cell population are indicated in the following table: RESULTS: ANTIBODY / CLONE RESULT Block 1 AE1-3 (AE1/AE3/PCK26) positive CK7 (OV-TL12/30) positive CK8 (39ulwgG10) positive CK20 (KS20.8) negative TTF-1 (8G7G3/1) negative Napsin A (Rabbit Polyclonal) negative HepPar (OCh1E5) negative RCC (PN-15) negative PSAP (PASE/4LJ) negative CK5-6 (D5 & 1684) positive P40 (BC28) negative Vimentin (V9) positive CD68 (KP-1) negative Melan A (A103) negative S-100 (4C4.9) negative CALRET (polyclonal) positive Ki-67 (30-9) positive, very low Block 2 CK8 (44uhgfE43) positive CK5-6 (D5 & 1684) positive CALRET (polyclonal) positive Vimentin (V9) positive TTF-1 (8G7G3/1) negative Napsin A (Rabbit Polyclonal) negative P40 (BC28) negative These tests were developed and their performance characteristics determined by [facility]. They may not have been cleared or approved by the U.S. Food and Drug Administration. The FDA has determined that such clearance or approval is not necessary. The above immunohistochemical/dualISH markers are ordered and reviewed by the Pathologist. INTERPRETATION: Thoracentesis fluid, ultrasound guided: Atypical mesothelial proliferation. The specimen is sent to [facility] for expert opinion, reviewed by Dr. Alexandre and the above diagnosis is rendered. Case has been reviewed in consultation with Dr. Joya who concurs with the above diagnosis. IDC:ANDREW LOUIS/ 05/10/2024
[2024-04-25 05:52] LABS: Hematocrit 40.3 % (40-54); Hemoglobin 13.5 g/dL (13.0-16.5); Mean Corp Hgb Conc 33.5 g/dL (32-36); Mean Corpuscular Hgb 28.5 pg (27.0-32.0); Mean Corpuscular Volume 85.2 fL (80-94); Mean Platelet Vol. 9.8 fl (6.2-12.0); Platelet Count 320 K/mm3 (150-450); RBC Distribution Width CV 13.4 % (11.6-14.6); RBC Distribution Width SD 41.7 fl (35.1-43.9); Red Blood Count 4.73 M/mm3 (4.6-6.2); White Blood Count 19.5 K/mm3 (4.4-11.0)
--- NOTE | 2024-04-25 06:00 | US_ITS ---
PROCEDURE: ULTRASOUND GUIDED THORACENTESIS. DATE: April 25, 2024. INDICATION: Male, 73 years old. Right pleural effusion PHYSICIAN: Henry Manning M.D. PROCEDURE: The risks, benefits, and alternatives to the procedure were explained to the patient. The specific risks of bleeding, infection, and pneumothorax requiring chest tube insertion were discussed and accepted. Written informed consent was obtained. Ultrasonographic evaluation of the right lower pleural space was carried out. An adequate pocket was identified. The patient was placed in the sitting, upright position. The overlying skin was prepped and draped in sterile fashion. 1% lidocaine was administered subcutaneously for local anesthesia. Under ultrasound guidance, a 5 [place] thoracentesis needle/catheter system was advanced into the right posterior lower pleural fluid collection. Approximately 1840 mL of blood tinged fluid was drained. The catheter was removed, and a sterile dressing was applied. A specimen was collected and sent to the laboratory for analysis, as requested by the referring clinician. The patient tolerated the procedure well. A chest x-ray was ordered. US/Thoracentesis W US IMPRESSION: Ultrasound-guided right thoracentesis. Electronically Signed: Henry Manning MD at 14:35 EDT ,
--- NOTE | 2024-04-25 06:00 | US_ITS ---
PROCEDURE: RENAL ULTRASOUND - COMPLETE REASON FOR EXAM: Male, 73 years old. Acute renal failure TECHNIQUE: Ultrasound evaluation of the bilateral kidneys was performed with real-time ultrasonography and static grayscale imaging. COMPARISON: None. FINDINGS: RIGHT KIDNEY: Normal location of the right kidney which is normal in size. The right kidney measures 10 x 4.5 x 4.7 cm. There is a normal cortex of the right kidney. The renal cortex measures 1.4 cm. There is no right renal mass or cyst. There are no right renal calculi. There is no right hydronephrosis. DISTAL RIGHT URETER: There is non-visualization of the distal right ureter. There is no demonstrated right ureterovesical junction calculus. There is a visualized right ureteral jet. LEFT KIDNEY: Normal location of the left kidney which is normal in size. The left kidney measures 12.2 x 4.7 x 4.9 cm. There is a normal cortex of the left kidney. The renal cortex measures 1.4 cm. There is no left renal mass or cyst. There are 2 small echogenic foci in the left kidney measuring about 2 mm which may represent small nonobstructing stones or calcifications. There is no left hydronephrosis. DISTAL LEFT URETER: There is non-visualization of the distal left ureter. There is no demonstrated left ureterovesical junction calculus. There is a visualized left ureteral jet. BLADDER: The distended urinary bladder has a volume of 54 ml. There is a normal wall thickness of the distended urinary bladder. There is no demonstrated mass within the urinary bladder. There is no demonstrated bladder calculi. The prostate is difficult to accurately evaluate on this exam measuring about 4.4 x 5.3 x 4 cm. US/Kidney and Bladder IMPRESSION: 1. No evidence of hydronephrosis. 2. Small echogenic foci in the left kidney which may represent small nonobstructing stones or calcifications. Electronically Signed: Rodolfo Lerma MD at 16:00 EDT ,
[2024-04-25 06:29] LABS: Anion Gap 10 (5-15); BUN 36 mg/dL (7-18); BUN/Creat Ratio 22.1 RATIO (10-20); Calcium,Total 9.4 mg/dL (8.5-10.1); Chloride 93 mmol/L (98-107); Creatinine, Serum 1.63 mg/dL (0.70-1.30); EST Glomerular Filtration Rate 44 mL/min (>60); Est Glom Filt Rate - Afr Amer 53 mL/min (>60); Estimated Creatinine Clearance 37.77 ml/min; Glucose 161 mg/dL (74-106); Potassium 3.4 mmol/L (3.5-5.1); Sodium Level 128 mmol/L (136-145)
[2024-04-25] MEDS: Ipratropium/Albuterol Sulfate 3 ML AMPUL.NEB INHALATION ×2 (07:29→19:21)
[2024-04-25] MEDS: Pravastatin 40 MG Tablet PO (08:55)
[2024-04-25] MEDS: predniSONE 20 MG Tablet 40 MG PO (08:55)
[2024-04-25] MEDS: Aspirin E.C. 81 MG Tablet PO (08:55)
[2024-04-25] MEDS: Cefdinir 300 MG Capsule PO ×2 (08:56→21:51)
[2024-04-25] MEDS: Potassium Chloride Oral Tablet 20 MEQ PO (09:09)
[2024-04-25 10:09] LABS: ALB/GLOB Ratio 0.8 RATIO (0.9-2.4); Globulin 3.7 g/dL (2.2-4.2); LDH 176 U/L (87-241); Protein, Total 6.6 g/dL (6.4-8.2)
[2024-04-25 10:27] LABS: International Normalized Ratio 1.1; Partial Thromboplast Time 24.8 Seconds (24.1-36.2)
--- NOTE | 2024-04-25 11:20 | CASEMGMT ---
GERMAIN SMITH Assessment: Face to Face with pt for initial transition planning/care coordination assessment. GERMAIN SMITH introduced self and role at [facility], pt voices understanding and consents to assessment. Pt is A&O x4 and answers all questions appropriately at this time. Pt sitting up in bed in no distress with daughter sitting at bedside. Pt agreeable to discussing DC plan with daughter in room. Care providers, pharmacy, and demographics verified/updated. Admitting Dx: Shortness of breath PCP: Juan Specialists: [facility]. Preferred Pharmacy: [facility] Insurance: [employer], [employer] [place] Prescription Benefit: yes LNOK: Daughter - Karla Living Arrangements: Pt lives alone in a 1 story home with 2 steps to enter. ADLs: Pt states I with ADLs and IADLs at home. Transportation: Pt drives self and denies concerns with transportation. DME: Pt denies any DME at home. HHC/SNF: Pt denies Hx of. Pt states no concerns with going home at time of dc. Pt states no further concerns/needs. CM to follow. Advised pt to ask CM if any further question/concerns/needs arise, voices understanding. Pt Goal: Home Plan: Home, will follow plan of care. Ifrah GROVES CM
[2024-04-25] MEDS: Lidocaine 2% (20 ml mdv) 20 ML Vial INFILT (13:41)
--- NOTE | 2024-04-25 13:50 | RAD_ITS ---
STUDY: X-RAY CHEST REASON FOR EXAM: Male, 73 years old. Post thoracentesis TECHNIQUE: AP inspiration and expiration views following a right thoracentesis. COMPARISON: None. FINDINGS: There is evidence of a 10% right pneumothorax following the thoracentesis. There is also evidence of scarring in the medial aspect of the right lung base suggestive of possible trapped lung. RAD/Chest Insp/Exp 2 View IMPRESSION: 10% right pneumothorax following a right thoracentesis with findings suggestive of a trapped lung at the right lung base. The patient is asymptomatic. Electronically Signed: Henry Manning MD at 14:01 EDT ,
[2024-04-25 14:21] LABS: Body Fluid Mononuclear WBC # 0.381 10^3/uL; Body Fluid Mononuclear WBC % 98.4 %; Body Fluid Polynuclear WBC # 0.006 10^3/uL; Body Fluid Polynuclear WBC % 1.6 %; Body Fluid Total Cells Counted 0.451 10^3/ul; Red Cell Count/Body Fluid 0.022 10^6/ul; White Blood Count/Body Fluid 0.387 10^3/uL
[2024-04-25 14:23] LABS: Cytology, Body Fluid / CSF SEE PATHOLOGY REPORT
[2024-04-25 14:24] LABS: Appearance/Body Fluid CLOUDY; Auto B Fluid Analyzer BKGD Ct COUNTS W/IN LIMITS (W/IN LIMITS); Color/Body Fluid PINK; Source- Body Fluid THORACENTESIS
[2024-04-25 15:26] LABS: Lymphocytes 34 %; Mesothelial Cells 54 %; Monocytes 8 %; Neutrophil (Segs) 4 %
[2024-04-25 15:27] LABS: Body Fluid QC Type(s) BF1Q
--- NOTE | 2024-04-25 15:35 | PN.HOSP_ITS ---
Reason for Visit Reason for Visit: Diagnoses Hypo-osmolality and hyponatremia (04/23/24) Pleural effusion, not elsewhere classified (04/23/24) Shortness of breath (04/23/24) Subjective Subjective Patient seen prior to thoracentesis and reports his cough is improving, still has shortness of breath that he thinks is possibly better over the past day or 2 however still significantly limiting, does note that his heart rate goes up to 120s when he is short of breath. No other focal complaints Objective Data Objective Data Vital Signs: Vital Signs Temp Pulse Resp BP Pulse Ox O2 Del Method O2 Flow Rate 97.5 F L 94 18 119/55 L 92 Nasal Cannula 3 04/25/24 15:30 04/25/24 15:30 04/25/24 15:30 04/25/24 15:30 04/25/24 15:30 04/25/24 15:30 04/25/24 15:30 Oxygen Flow Rate (L/min) 3 Oxygen Delivery Method Nasal Cannula Weight: 68.2 kg Body Mass Index (BMI) 20.9 Intake & Output: Intake and Output for Last 24 Hours 04/23/24 04/24/24 04/25/24 23:59 23:59 23:59 Intake Total 240 / 240 1900 / 1900 Output Total 2650 / 2650 1650 / 1650 2640 / 2640 Balance -2410 / -2410 250 / 250 -2640 / -2640 Medical Nutrition Assessment Dietitian: Malnutrition Criteria Met Start: 04/24/24 10:26 Freq: Status: Active Protocol: Document 04/24/24 10:26 JORDAN (Rec: 04/24/24 10:26 JORDAN [id number]) Nutrition Malnutrition Evidence of Malnutrition Exists Yes Malnutrition (severe): Acute Illness/Injury Evidenced By Suboptimal Energy Intake ( Severe),Weight Loss (Severe) Clinical Problem Acute Disease or Injury Related Malnutrition Etiology related to inadequate energy intake Signs/Symptoms as evidenced by 5% unintended wt loss and po intake meeting <75% 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 Lab / Micro Data 04/25/24 05:38 04/25/24 05:38 Labs: Laboratory Results - last 24 hr 04/25/24 05:38: WBC 19.5 H, RBC 4.73, Hgb 13.5, Hct 40.3, MCV 85.2, MCH 28.5, MCHC 33.5, RDW Std Deviation 41.7, RDW Coeff of Wilbert 13.4, Plt Count 320, MPV 9.8, Sodium 128 L, Potassium 3.4 L, Chloride 93 L, Carbon Dioxide 25.0, Anion Gap 10, BUN 36 H, Creatinine 1.63 H, Estim Creat Clear Calc 37.77, Est GFR (MDRD) Af Amer 53 L, Est GFR (MDRD) Non-Af 44 L, BUN/Creatinine Ratio 22.1 H, G lucose 161 H, Calcium 9.4, Lactate Dehydrogenase 176, Total Protein 6.6, Globulin 3.7, Albumin/Globulin Ratio 0.8 L 04/25/24 07:34: PT 14.0, INR 1.1, APTT 24.8 04/25/24 14:00: Fluid Source THORACENTESIS, Fluid Color PINK, Fluid Appearance CLOUDY, Fluid WBC 0.387, Fluid RBC 0.022, Fluid Tot Cell Count 0.451, Fld Polynuclear WBCs # 0.006, Fld Polynuclear WBCs % 1.6, Fluid Mononuclear WBCs 0.381, Fld Mononuclear WBCs % 98.4, Fluid Neutrophils 4, Fluid Lymphocytes 34, Fluid Monocytes 8, Fld Mesothelial Cells 54, Fl Pathologist Comment May follow, Fluid Comment 2 SEE COMMENT Micro: Microbiology 04/23/24 22:18 Sputum, Expectorated/Coughed Gram Stain - Final 04/23/24 22:18 Sputum, Expectorated/Coughed Respiratory Culture - Preliminary GNR lactose jewel diameter gauger 04/23/24 14:21 Mucosa - Nose Respiratory Panel (PCR) - Final Radiography Diagnostic Testing: Radiology Impression Echocardiogram 04/23/24 15:03 Interpretation Summary The estimated ejection fraction is 70 %. No evidence for diastolic dysfunction. Trivial pericardial effusion. Ordering Physician: Raúl Lam Referring Physician: MD Brent Castro Performed By: Maria Luisa Chavez, CHARLIE Thoracentesis Ultrasound 04/25/24 06:00 IMPRESSION: Ultrasound-guided right thoracentesis. Electronically Signed: Henry Manning MD at 14:35 EDT , Chest X-Ray 04/25/24 13:50 IMPRESSION: 10% right pneumothorax following a right thoracentesis with findings suggestive of a trapped lung at the right lung base. The patient is asymptomatic. Electronically Signed: Henry Manning MD at 14:01 EDT , Physical Exam Narrative General: Alert, oriented, no apparent distress HEENT: Atraumatic, normocephalic Eyes: Anicteric, normal conjunctiva, extraocular movements grossly intact Neck: Supple Respiratory: Dull at right midlung and down otherwise clear to auscultation Cardiovascular: Regular rate and rhythm GI: Soft, nontender, nondistended Extremities: No edema Musculoskeletal: Moving all extremities Neuro: No overt focal neurological deficits Skin: No rashes appreciated Psych: Cooperative Assessment & Plan Assessment/Plan (1) Pleural effusion on right: (2) SOB (shortness of breath): (3) Hyponatremia: PLAN: Plan #Large right sided pleural effusion -Seen on chest CT on presentation -Patient status post thoracentesis with 1800 cc of fluid drained -Awaiting fluid studies -X-ray performed after showed 10% right pneumothorax and findings suggestive of trapped lung at right base -Patient on 2 L O2 postthoracentesis and stable sats in low 90s -Echo ordered w/ EF 70% and no diastolic dysfunction noted # Mild COPD exacerbation -Patient on steroids and oral antibiotics -Continue nebs -Continue present management -Pt is growing GNR lactose jewel diameter gauger in sputum, f/u culture and sensitivities #Pneumothorax -10% pneumothorax on the right after thoracentesis, patient presently stable -2 to 3 L O2 satting low 90s -Chest x-ray if any clinical change if not chest x-ray in a.m. and low threshold for pulmonary involvement #HARPREET -BUN and creatinine have been uptrending, creatinine up 0.30, holding Lasix -Repeat in a.m. -Avoid nephrotoxic agents avoid nephrotoxic agents -Renal US ordered #Hyponatremia -129 on presentation, stable at 128 -Will check urine studies # Leukocytosis - white blood cell count 19.5 today however patient received steroids, suspect this is the cause -Cont po abx and prednisone, monitor for s/s of infection #DVT ppx: Heparin subcu Maida Wheat MD Time spent in the patient's overall evaluation,decision-making process, review of diagnostic data, adjustment of management, discussion with other providers, nursing nursing and ancillary staff involved in patient's care documentation, 40 minutes Charges/Coding Visit Charges Inpatient E&M: 63555 Subs Hosp L2
--- NOTE | 2024-04-25 16:17 | CHAPLAIN ---
Type of Pastoral Visit _x__ Initial Visit ___ Follow-up Visit ___ On-call Visit ___ General Patient Visit ___ Spiritual Assessment ___ Family Conference ___ Bereavement ___ Rapid Response ___ Code Blue ___ Other (describe below) Pastoral Care Referral From _x__ Patient ___ Family ___ Nurse ___ Physician ___ Docent Coordinator ___ Care Trainer ___ Other (describe below) Sacrament/Intervention _x__ Active listening ___ Anointing ___ Jewish ___ Bereavement ___ Communion ___ Celia exploration ___ ___ Life review ___ Prayer ___ Reconciliation ___ Sacrament of Sick ___ Supportive presence ___ Wedding ___ Other (describe below) Pastoral Comments patient has several family members present in the room; pt states that he is doing well and that he has great support; RICH in the room has already given a prayer in the room previously; pt and family give casual conversation for a short time; no other needs evident or revealed
[2024-04-25 16:29] LABS: Glucose, Body Fluid 105 mg/dL (40-70)
[2024-04-25 17:14] LABS: LDH,Body Fluid 543 Units/L (Not Establ.); Protein, Body Fluid 4.1 g/dL (Not Establ.)
[2024-04-25 18:26] LABS: Urea Nitrogen, Urine 1379 mg/dL (NO RANGE EST.); Urine Chloride < 10 mmol/L (Not Establ.); Urine Sodium 8 mmol/L (Not Establ.)
[2024-04-25 19:11] LABS: Osmolality, Urine 674 mOsm/KG
[2024-04-25] MEDS: Heparin Injection (Vial) 5,000 UNIT/ML VIAL 5000 UNIT SC (21:51)
[2024-04-26] VITALS (9 sets, daily range): BP systolic 107–115; BP diastolic 49–62; PULSE 59–102; RESP 12–18; TEMP 36.3–36.6; O2SAT 92–98
--- NOTE | 2024-04-26 05:55 | RAD_ITS ---
STUDY: X-RAY CHEST REASON FOR EXAM: Male, 73 years old. Pneumothorax post thoracentesis TECHNIQUE: AP and inspiration and expiration views. COMPARISON: Comparison is made with prior examination dated April 25, 2024 at 1:48 PM. FINDINGS: Stable appearance of the right-sided pneumothorax with findings suggestive of trapped lung in the medial aspect of the right lower lobe. If the patient is symptomatic suggest shortness of breath, a small caliber chest tube may be indicated for decompression. RAD/Chest Insp/Exp 2 View IMPRESSION: Stable right-sided pneumothorax. Please correlate with the patient''s symptoms for further treatment. Electronically Signed: Henry Manning MD at 8:39 EDT ,
[2024-04-26 06:31] LABS: Absolute Neutrophil Count 18.4 X10^3/uL (2.0-7.7); Basophil# 0.03 X10^3/uL; Basophil% 0.2 % (0-1); Eosinophil# 0.01 X10^3/uL; Eosinophils% 0.1 % (0-5); Hematocrit 39.6 % (40-54); Mean Corp Hgb Conc 32.8 g/dL (32-36); Mean Corpuscular Hgb 28.3 pg (27.0-32.0); Mean Corpuscular Volume 86.1 fL (80-94); Monocyte# 0.77 X10^3/uL; Monocyte% 3.9 % (0-10); NRBC Flagged by Analyzer 0 % (0-5); Neutrophil # 18.36 X10^3/uL (2.7-7.7); Neutrophil % 91.6 % (47-70); POSITIVE DIFFERENTIAL YES; Platelet Count 294 K/mm3 (150-450); RBC Distribution Width CV 13.5 % (11.6-14.6); RBC Distribution Width SD 42.4 fl (35.1-43.9)
[2024-04-26 07:07] LABS: Anion Gap 9 (5-15); BUN 40 mg/dL (7-18); BUN/Creat Ratio 28.6 RATIO (10-20); Calcium,Total 9.3 mg/dL (8.5-10.1); Chloride 96 mmol/L (98-107); EST Glomerular Filtration Rate 52 mL/min (>60); Est Glom Filt Rate - Afr Amer 63 mL/min (>60); Estimated Creatinine Clearance 43.98 ml/min; Glucose 112 mg/dL (74-106); Potassium 4.2 mmol/L (3.5-5.1); Sodium Level 130 mmol/L (136-145)
[2024-04-26] MEDS: Ipratropium/Albuterol Sulfate 3 ML AMPUL.NEB INHALATION ×4 (07:32→19:35)
[2024-04-26] MEDS: Aspirin E.C. 81 MG Tablet PO (08:29)
[2024-04-26] MEDS: predniSONE 20 MG Tablet 40 MG PO (08:29)
[2024-04-26] MEDS: 0.9% Saline Lock 10 ML Syringe IV (10:14)
[2024-04-26] MEDS: levoFLOXacin IV 750 MG/150 ML BAG 100 MG IV (10:14)
[2024-04-26] MEDS: Heparin Injection (Vial) 5,000 UNIT/ML VIAL 5000 UNIT SC ×2 (11:53→20:43)
[2024-04-26] MEDS: Pravastatin 40 MG Tablet PO (11:53)
[2024-04-26] MEDS: Calcium Carbonate 500 MG Tablet 1000 MG PO (14:36)
[2024-04-26] MEDS: guaiFENesin 10 ML UDC (200MG/10ML) 20 ML PO (15:59)
--- NOTE | 2024-04-26 16:51 | PCM.PN.HOSP ---
Reason for Visit Reason for Visit: Diagnoses Hypo-osmolality and hyponatremia (04/23/24) Pleural effusion, not elsewhere classified (04/23/24) Shortness of breath (04/23/24) Subjective Subjective Patient is feeling somewhat better today, still does have some shortness of breath but improved from previous Objective Data Objective Data Vital Signs: Vital Signs Temp Pulse Resp BP Pulse Ox O2 Del Method O2 Flow Rate 97.8 F 59 L 16 115/59 L 98 Nasal Cannula 2 04/26/24 14:20 04/26/24 15:19 04/26/24 15:19 04/26/24 14:20 04/26/24 14:20 04/26/24 14:20 04/26/24 14:20 Oxygen Flow Rate (L/min) 2 Oxygen Delivery Method Nasal Cannula Weight: 68.2 kg Body Mass Index (BMI) 20.9 Intake & Output: Intake and Output for Last 24 Hours 04/24/24 04/25/24 04/26/24 23:59 23:59 23:59 Intake Total 1900 / 1900 390 / 390 Output Total 1650 / 1650 2640 / 2640 400 / 400 Balance 250 / 250 -2640 / -2640 -10 / -10 Medical Nutrition Assessment Dietitian: Malnutrition Criteria Met Start: 04/24/24 10:26 Freq: Status: Active Protocol: Document 04/24/24 10:26 JORDAN (Rec: 04/24/24 10:26 JORDAN [id number]) Nutrition Malnutrition Evidence of Malnutrition Exists Yes Malnutrition (severe): Acute Illness/Injury Evidenced By Suboptimal Energy Intake ( Severe),Weight Loss (Severe) Clinical Problem Acute Disease or Injury Related Malnutrition Etiology related to inadequate energy intake Signs/Symptoms as evidenced by 5% unintended wt loss and po intake meeting <75% 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 Lab / Micro Data 04/26/24 06:14 04/26/24 06:14 Labs: Laboratory Results - last 24 hr 04/25/24 14:00: Fluid Total Protein 4.1, Fluid LDH 543 04/25/24 17:50: Urine Osmolality 674, Ur Random Sodium 8, Urine Creatinine 141.00, Urine Potassium 34.0, Urine Chloride < 10, Urine Urea Nitrogen 1379 04/26/24 06:14: WBC 20.0 H, RBC 4.60, Hgb 13.0, Hct 39.6 L, MCV 86.1, MCH 28.3, MCHC 32.8, RDW Std Deviation 42.4, RDW Coeff of Wilbert 13.5, Plt Count 294, MPV 10.0, Immature Gran % (Auto) 1.200 H, Neut % (Auto) 91.6 H, Lymph % (Auto) 3.0 L, [place] % (Auto) 3.9, Eos % (Auto) 0.1, Baso % (Auto) 0.2, Absolute Neuts (auto) 18.4 H, Absolute Lymphs (auto) 0.60 L, Nucleated RBC % 0, Sodium 130 L, Potassium 4.2, Chloride 96 L, Carbon Dioxide 25.0, Anion Gap 9, BUN 40 H, Creatinine 1.40 H, Estim Creat Clear Calc 43.98, Est GFR (MDRD) Af Amer 63, Est GFR (MDRD) Non-Af 52 L, BUN/Creatinine Ratio 28.6 H, Glucose 112 H, Calcium 9.3 Micro: Microbiology 04/23/24 22:18 Sputum, Expectorated/Coughed Gram Stain - Final 04/23/24 22:18 Sputum, Expectorated/Coughed Respiratory Culture - Final Klebsiella oxytoca 04/25/24 14:00 Fluid - Pleural (Lung) Gram Stain - Final 04/23/24 14:21 Mucosa - Nose Respiratory Panel (PCR) - Final Radiography Diagnostic Testing: Radiology Impression Chest X-Ray 04/26/24 05:55 IMPRESSION: Stable right-sided pneumothorax. Please correlate with the patient''s symptoms for further treatment. Electronically Signed: Henry Manning MD at 8:39 EDT , Physical Exam Narrative General: Alert, oriented, no apparent distress HEENT: Atraumatic, normocephalic Eyes: Anicteric, normal conjunctiva, extraocular movements grossly intact Neck: Supple Respiratory: Diminished on right side Cardiovascular: Regular rate and rhythm GI: Soft, nontender, nondistended Extremities: No edema Musculoskeletal: Moving all extremities Neuro: No overt focal neurological deficits Skin: No rashes appreciated Psych: Cooperative Assessment & Plan Assessment/Plan (1) Pleural effusion on right: (2) SOB (shortness of breath): (3) Hyponatremia: PLAN: Plan #Pneumothorax -10% pneumothorax on the right after thoracentesis, patient presently stable -2 to 3 L O2 satting low 90s -Chest x-ray if any clinical change if not chest x-ray in a.m. and low threshold for pulmonary involvement -04/26: Patient has some residual pneumothorax, will repeat in a.m., if not improved will need to consult for likely chest tube placement, continue O2, patient presently stable #Large right sided pleural effusion?parapneumonic effusion -Seen on chest CT on presentation -Patient status post thoracentesis with 1800 cc of fluid drained -Awaiting fluid studies -X-ray performed after showed 10% right pneumothorax and findings suggestive of trapped lung at right base -Patient on 2 L O2 postthoracentesis and stable sats in low 90s -Echo ordered w/ EF 70% and no diastolic dysfunction noted -04/26: Patient grew Klebsiella in his sputum, he had been on antibiotics for several days prior to thoracentesis so given that in conjunction with symptoms leading up to admission and positive sputum culture seems this is likely most consistent with parapneumonic effusion. 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 steroids, will continue at this time for short course #HARPREET -BUN and creatinine have been uptrending, creatinine up 0.30, holding Lasix -Repeat in a.m. -Avoid nephrotoxic agents avoid nephrotoxic agents -Renal US ordered -04/26: Renal ultrasound not overtly remarkable, creatinine did downtrend today #Hyponatremia -129 on presentation, stable at 128 -Will check urine studies -04/26: Sodium up to 130, do not think we need additional workup at this time # Leukocytosis - white blood cell count 19.5 today however patient received steroids, suspect this is the cause -Cont po abx and prednisone, monitor for s/s of infection -04/26: White blood cell count 20, afebrile, treating with Levaquin, still suspect this is largely due to steroids but did have positive sputum culture, continue antibiotics and monitor patient #DVT ppx: Heparin subcu Maida Wheat MD Time spent in the patient's overall evaluation,decision-making process, review of diagnostic data, adjustment of management, discussion with other providers, nursing nursing and ancillary staff involved in patient's care documentation, 36 minutes Charges/Coding Visit Charges Inpatient E&M: 54991 Subs Hosp L2
[2024-04-27 04:00] VITALS: BP 98/55; PULSE 85; RESP 16; TEMP 36.3; O2SAT 94
[2024-04-27] MEDS: Calcium Carbonate 500 MG Tablet 1000 MG PO ×2 (04:08→22:53)
[2024-04-27] MEDS: Sodium Chloride 0.65% 1 SPRAY SPRAY.BTL NASAL ×2 (04:08→07:33)
--- NOTE | 2024-04-27 05:55 | RAD_ITS ---
STUDY: X-RAY CHEST REASON FOR EXAM: Male, 73 years old. Pneumothorax TECHNIQUE: Frontal view of the chest COMPARISON: 04/26/2024 FINDINGS: There is a stable moderate right pneumothorax which is predominantly at the right apex and right lung base. There is no left-sided pneumothorax. There is atelectasis at the right lung base. The left lung is clear. The heart is normal in size. The visualized osseous structures are within normal limits. RAD/Chest 1 View (Portable) IMPRESSION: Stable exam. Electronically Signed: Tono Bowens MD at 8:52 EDT ,
[2024-04-27 06:09] LABS: Absolute Lymphocyte Count 0.69 X10^3/uL (0.83-4.51); Absolute Neutrophil Count 11.7 X10^3/uL (2.0-7.7); Basophil# 0.01 X10^3/uL; Basophil% 0.1 % (0-1); Hematocrit 39.2 % (40-54); Lymphocyte # 0.69 X10^3/ul (0.83-4.51); Lymphocyte % 5.3 % (19-41); Mean Corp Hgb Conc 33.2 g/dL (32-36); Mean Corpuscular Hgb 28.5 pg (27.0-32.0); Monocyte# 0.52 X10^3/uL; NRBC Flagged by Analyzer 0 % (0-5); Neutrophil # 11.65 X10^3/uL (2.7-7.7); Neutrophil % 90.1 % (47-70); Platelet Count 245 K/mm3 (150-450); RBC Distribution Width CV 13.5 % (11.6-14.6); RBC Distribution Width SD 42.2 fl (35.1-43.9); Red Blood Count 4.56 M/mm3 (4.6-6.2); White Blood Count 12.9 K/mm3 (4.4-11.0)
[2024-04-27 06:28] LABS: Anion Gap 9 (5-15); BUN 28 mg/dL (7-18); BUN/Creat Ratio 21.1 RATIO (10-20); Calcium,Total 9.6 mg/dL (8.5-10.1); Chloride 96 mmol/L (98-107); Creatinine, Serum 1.33 mg/dL (0.70-1.30); EST Glomerular Filtration Rate 56 mL/min (>60); Est Glom Filt Rate - Afr Amer 67 mL/min (>60); Estimated Creatinine Clearance 46.29 ml/min; Glucose 95 mg/dL (74-106); Potassium 4.2 mmol/L (3.5-5.1); Sodium Level 130 mmol/L (136-145)
[2024-04-27 09:00] VITALS: BP 111/59; PULSE 93; RESP 18; TEMP 36.5; O2SAT 92
--- NOTE | 2024-04-27 09:26 | CT_ITS ---
INDICATION: better characterize pneumothorax vs trapped lung EXAMINATION: CT CHEST WITHOUT CONTRAST - CT Chest W/O Contrast Injection TECHNIQUE: Helically acquired images were obtained of the chest. The protocol utilizes one or more of the following dose reduction techniques: automated exposure control, adjustment of mA and/or kV according to patient size,and/or use of iterative reconstruction technique. IV Contrast dosage and agent: None. RADIATION DOSAGE (If Supplied By Facility): CTDIvol = ( 11.00 ) mGy, DLP = ( 527.87 ) mGycm COMPARISON: Chest x-ray of the same day. FINDINGS: LUNGS, PLEURA AND LARGE AIRWAYS: Moderate right pneumothorax. Small right pleural effusion. Atelectatic changes in the right lower lobe. Hyperinflated lungs with. Left lower lobe pleural-based density likely due to atelectasis. Mild cystic changes in the lingula. THYROID: No thyroid lesions. HEART AND PERICARDIUM: The heart is somewhat small in size. Possible small pericardial effusion. CORONARY ARTERIES: Coronary artery calcification is seen. VESSELS: Atherosclerotic calcifications and tortuosity of the thoracic aorta. Partially visualized abdominal aortic aneurysm measuring up to 4.5 cm in transverse diameter with endoluminal stent graft. MEDIASTINUM AND NICOLÁS: No mediastinal or hilar adenopathy. Esophagus is unremarkable. No hiatal hernia. UPPER ABDOMEN: No acute pathology. BONES: No suspicious lytic or blastic abnormality. CT/Chest without Contrast IMPRESSION: 1. Moderate right hydropneumothorax with atelectatic changes in the right lower lung. 2. Mild stranding/atelectasis in the left lower lobe. Electronically Signed: Rodolfo Lerma MD at 10:23 EDT ,
[2024-04-27] MEDS: Aspirin E.C. 81 MG Tablet PO (09:32)
[2024-04-27] MEDS: predniSONE 20 MG Tablet 40 MG PO (09:32)
[2024-04-27] MEDS: Pravastatin 40 MG Tablet PO (09:33)
[2024-04-27] MEDS: Heparin Injection (Vial) 5,000 UNIT/ML VIAL 5000 UNIT SC ×2 (09:34→22:53)
--- NOTE | 2024-04-27 09:56 | CASEMGMT ---
Insurance review for hospitals In-network with?MCR insurance if transfer is recommended is as follows: [facility], [place], [facility], [place], [facility], [facility], [facility], [facility], [place], [facility] ([facility]), and . Patricia Flores, Discharge Planning Asst.
--- NOTE | 2024-04-27 10:03 | PN.HOSP_ITS ---
Reason for Visit Reason for Visit: Diagnoses Hypo-osmolality and hyponatremia (04/23/24) Pleural effusion, not elsewhere classified (04/23/24) Shortness of breath (04/23/24) Subjective Subjective Patient still dyspneic, somewhat better than presentation but still significant limitation Objective Data Objective Data Vital Signs: Vital Signs Temp Pulse Resp BP Pulse Ox O2 Del Method O2 Flow Rate 97.7 F L 93 18 111/59 L 92 Room Air 2 04/27/24 09:00 04/27/24 09:00 04/27/24 09:00 04/27/24 09:00 04/27/24 09:00 04/27/24 09:00 04/27/24 07:27 Oxygen Flow Rate (L/min) 2 Oxygen Delivery Method Room Air Weight: 68.2 kg Body Mass Index (BMI) 20.9 Intake & Output: Intake and Output for Last 24 Hours 04/25/24 04/26/24 04/27/24 23:59 23:59 23:59 Intake Total 630 / 630 Output Total 2640 / 2640 2640 / 2640 500 / 500 Balance -2640 / -2640 -2009 / -2010 -500 / -500 Medical Nutrition Assessment Dietitian: Malnutrition Criteria Met Start: 04/24/24 10:26 Freq: Status: Active Protocol: Document 04/24/24 10:26 JORDAN (Rec: 04/24/24 10:26 JORDAN [id number]) Nutrition Malnutrition Evidence of Malnutrition Exists Yes Malnutrition (severe): Acute Illness/Injury Evidenced By Suboptimal Energy Intake ( Severe),Weight Loss (Severe) Clinical Problem Acute Disease or Injury Related Malnutrition Etiology related to inadequate energy intake Signs/Symptoms as evidenced by 5% unintended wt loss and po intake meeting <75% 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 Lab / Micro Data 04/27/24 05:42 04/27/24 05:42 Labs: Laboratory Results - last 24 hr 04/27/24 05:42: WBC 12.9 H, RBC 4.56 L, Hgb 13.0, Hct 39.2 L, MCV 86.0, MCH 28.5, MCHC 33.2, RDW Std Deviation 42.2, RDW Coeff of Wilbert 13.5, Plt Count 245, MPV 10.0, Immature Gran % (Auto) 0.500, Neut % (Auto) 90.1 H, Lymph % (Auto) 5.3 L, [place] % (Auto) 4.0, Eos % (Auto) 0.0, Baso % (Auto) 0.1, Absolute Neuts (auto) 11.7 H, Absolute Lymphs (auto) 0.69 L, Nucleated RBC % 0, Sodium 130 L, Potassium 4.2, Chloride 96 L, Carbon Dioxide 25.0, Anion Gap 9, BUN 28 H, C reatinine 1.33 H, Estim Creat Clear Calc 46.29, Est GFR (MDRD) Af Amer 67, Est GFR (MDRD) Non-Af 56 L, BUN/Creatinine Ratio 21.1 H, Glucose 95, Calcium 9.6 Micro: Microbiology 04/25/24 14:00 Fluid - Pleural (Lung) Gram Stain - Final 04/25/24 14:00 Fluid - Pleural (Lung) Anaerobic Culture - Preliminary No growth in 48 hours. 04/23/24 22:18 Sputum, Expectorated/Coughed Gram Stain - Final 04/23/24 22:18 Sputum, Expectorated/Coughed Respiratory Culture - Final Klebsiella oxytoca 04/23/24 14:21 Mucosa - Nose Respiratory Panel (PCR) - Final Radiography Diagnostic Testing: Radiology Impression Chest X-Ray 04/27/24 05:55 IMPRESSION: Stable exam. Electronically Signed: Tono Bowens MD at 8:52 EDT , Physical Exam Narrative General: Alert, oriented, no apparent distress HEENT: Atraumatic, normocephalic Eyes: Anicteric, normal conjunctiva, extraocular movements grossly intact Neck: Supple Respiratory: Diminished on right side Cardiovascular: Regular rate and rhythm GI: Soft, nontender, nondistended Extremities: No edema Musculoskeletal: Moving all extremities Neuro: No overt focal neurological deficits Skin: No rashes appreciated Psych: Cooperative Assessment & Plan Assessment/Plan (1) Pleural effusion on right: (2) SOB (shortness of breath): (3) Hyponatremia: PLAN: Plan #Pneumothorax -10% pneumothorax on the right after thoracentesis, patient presently stable -2 to 3 L O2 satting low 90s -Chest x-ray if any clinical change if not chest x-ray in a.m. and low threshold for pulmonary involvement -04/26: Patient has some residual pneumothorax, will repeat in a.m., if not improved will need to consult for likely chest tube placement, continue O2, patient presently stable -04/27: Patient still dyspneic with limitations and chest x-ray with persistent pneumothorax, discussed with surgery and CT obtained, ultimately chest tube placed with reexpansion of lung, pulmonology also consulted and evaluated #Large right sided pleural effusion?parapneumonic effusion -Seen on chest CT on presentation -Patient status post thoracentesis with 1800 cc of fluid drained -Awaiting fluid studies -X-ray performed after showed 10% right pneumothorax and findings suggestive of trapped lung at right base -Patient on 2 L O2 postthoracentesis and stable sats in low 90s -Echo ordered w/ EF 70% and no diastolic dysfunction noted -04/26: Patient grew Klebsiella in his sputum, he had been on antibiotics for several days prior to thoracentesis so given that in conjunction with symptoms leading up to admission and positive sputum culture seems this is likely most consistent with parapneumonic effusion. 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 steroids, will continue at this time for short course -04/27: Done with p.o. steroids #HARPREET -BUN and creatinine have been uptrending, creatinine up 0.30, holding Lasix -Repeat in a.m. -Avoid nephrotoxic agents avoid nephrotoxic agents -Renal US ordered -04/26: Renal ultrasound not overtly remarkable, creatinine did downtrend today -04/27: Continues to improve with conservative management #Hyponatremia -129 on presentation, stable at 128 -Will check urine studies -04/26: Sodium up to 130, do not think we need additional workup at this time -04/27: 130 today, seems to be possible SIADH is presently stable and patient asymptomatic # Leukocytosis - white blood cell count 19.5 today however patient received steroids, suspect this is the cause -Cont po abx and prednisone, monitor for s/s of infection -04/26: White blood cell count 20, afebrile, treating with Levaquin, still suspect this is largely due to steroids but did have positive sputum culture, continue antibiotics and monitor patient -04/27: Improving since antibiotics were started, continue IV antibiotics #DVT ppx: Heparin subcu Maida Wheat MD Time spent in the patient's overall evaluation,decision-making process, review of diagnostic data, adjustment of management, discussion with other providers, nursing nursing and ancillary staff involved in patient's care documentation, 56 minutes Charges/Coding Visit Charges Inpatient E&M: 08772 Subs Hosp L3
--- NOTE | 2024-04-27 11:54 | CON.PCM.SX_ITS ---
Assessment & Plan Assessment/Plan (1) Pneumothorax on right: PLAN: Plan Discussed with patient and his daughter will plan for placement of right chest tube to see if it will help lung expansion some?the lung may be trapped lung from previous effusion which patient had 1800 removed by thoracentesis on 04/25. Discussed patient and his daughter could possibly need a larger chest tube or even transfer to tertiary care facility with thoracic if this does not improve. They elect not to use the 8 Japanese pigtail as it would not work as well due to the effusion. Migdalia Mckeon M.D. Pager: [phone] [facility] [address] [place] [address], Outpatient [facility]ilion, [address] [place] [address] Office: [phone] HPI Consult Data Date of Consult: 04/27/24 HPI Narrative HPI Narrative: BUZZ PUGH, is a 73 M who admitted status post thoracentesis pneumothorax question if it is pneumo vs partially trapped lung. Checks x-ray appears similar to yesterday. Patient is 90 to 94% on 2 L nasal cannula still complains of some shortness of breath. Prior to coming in with the right effusion did not have any other respiratory complaints. CT chest showed a right pneumo/hydrothorax-with collapse lower lung. [facility] Medical History Acute rhinosinusitis URI (upper respiratory infection) Elevated blood pressure reading in office without diagnosis of hypertension (~2014) GERD (gastroesophageal reflux disease) Essential (primary) hypertension Hyperlipidemia Abdominal aortic aneurysm (AAA) Home Medications ?Medication ?Instructions ?Recorded ?Last Taken ?Type pravastatin 40 mg tablet 40 mg PO DAILY high cholesterol 01/16/18 04/22/24 History aspirin 81 mg tablet,delayed 81 mg PO DAILY heart health 08/17/18 04/22/24 History release (Adult Low Dose Aspirin) lisinopril 5 mg tablet 2.5 mg PO DAILY hypertension 04/23/24 04/22/24 History Allergy/AdvReac Type Severity Reaction Status Date / Time No Known Allergies Allergy Verified 04/23/24 12:29 Family History Father Heart disease Hypertension Myocardial infarction TAA Sister Hypertension Mother Hypertension Surgical History History of ear surgery History of inguinal hernia repair Social History Smoking Status: Former smoker ROS Constitutional Constitutional: Denies anorexia Eyes Eyes: Denies change in vision ENT HEENT: Denies dysphagia Cardiovascular Cardiovascular: Denies chest pain Respiratory/Chest Respiratory/Chest: Reports shortness of breath at rest and shortness of breath with exertion Gastrointestinal Gastrointestinal: Denies abdominal pain Genitourinary Genitourinary: Denies dysuria Musculoskeletal Musculoskeletal: Denies joint swelling Integumentary Integumentary: Denies rash Neurologic Neurologic: Denies focal weakness Psychiatric Psychiatric: Denies anxiety or depression Endocrine Endocrinology: Denies flushing Hematologic/Lymphatic Hematologic/Lymphatic: Denies easy bleeding Physical Exam Const alert, oriented x3 and no apparent distress HEENT normocephalic and head/scalp atraumatic Resp normal respiratory effort Auscultation: diminished lung sounds right Cardio regular rate GI soft to palpation and non-tender; Negative for non-distended Palpation: Negative for guarding Extremity no clubbing, cyanosis or edema Skin no rashes or lesions noted Neuro CN's II-XII intact bilaterally Psych mental status grossly normal Medical Records Data Medical Nutrition Assessment Dietitian: Malnutrition Criteria Met Start: 04/24/24 10:26 Freq: Status: Active Protocol: Document 04/24/24 10:26 [facility] (Rec: 04/24/24 10:26 [facility] [id number]) Nutrition Malnutrition Evidence of Malnutrition Exists Yes Malnutrition (severe): Acute Illness/Injury Evidenced By Suboptimal Energy Intake ( Severe),Weight Loss (Severe) Clinical Problem Acute Disease or Injury Related Malnutrition Etiology related to inadequate energy intake Signs/Symptoms as evidenced by 5% unintended wt loss and po intake 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 Lab / Micro Data 04/27/24 05:42 04/27/24 05:42 Labs: Laboratory Results - last 24 hr 04/27/24 05:42: WBC 12.9 H, RBC 4.56 L, Hgb 13.0, Hct 39.2 L, MCV 86.0, MCH 28.5, MCHC 33.2, RDW Std Deviation 42.2, RDW Coeff of Wilbert 13.5, Plt Count 245, MPV 10.0, Immature Gran % (Auto) 0.500, Neut % (Auto) 90.1 H, Lymph % (Auto) 5.3 L, [place] % (Auto) 4.0, Eos % (Auto) 0.0, Baso % (Auto) 0.1, Absolute Neuts (auto) 11.7 H, Absolute Lymphs (auto) 0.69 L, Nucleated RBC % 0, Sodium 130 L, Potassium 4.2, Chloride 96 L, Carbon Dioxide 25.0, Anion Gap 9, BUN 28 H, C reatinine 1.33 H, Estim Creat Clear Calc 46.29, Est GFR (MDRD) Af Amer 67, Est GFR (MDRD) Non-Af 56 L, BUN/Creatinine Ratio 21.1 H, Glucose 95, Calcium 9.6 Micro: Microbiology 04/25/24 14:00 Fluid - Pleural (Lung) Gram Stain - Final 04/25/24 14:00 Fluid - Pleural (Lung) Anaerobic Culture - Preliminary No growth in 48 hours. 04/23/24 22:18 Sputum, Expectorated/Coughed Gram Stain - Final 04/23/24 22:18 Sputum, Expectorated/Coughed Respiratory Culture - Final Klebsiella oxytoca Imaging Radiology Impression Chest X-Ray 04/27/24 05:55 IMPRESSION: Stable exam. Electronically Signed: Tono Bowens MD at 8:52 EDT , Chest CT 04/27/24 09:26 IMPRESSION: 1. Moderate right hydropneumothorax with atelectatic changes in the right lower lung. 2. Mild stranding/atelectasis in the left lower lobe. Electronically Signed: Rodolfo Lerma MD at 10:23 EDT , ADDENDUM: 04/27/24 1116 IMPRESSION: undefined Charges/Coding Multi Select Codes Visit Charges Visit Charges: 93680 Init Hosp L3
--- NOTE | 2024-04-27 12:04 | PCMCONS.TICU ---
HPI Consult Data Date of Consult: 04/27/24 HPI Narrative HPI Narrative: BUZZ PUGH, is a 73 M who presents with cough and shortness of breath for 4 weeks and had been worsening progressively. He has history of HTN, Emphysema. Patient was admitted on 04/23 for acute respiratory failure, found to have right pleural effusion. He is s/p thoracentesis on 04/25, noted to have pneumothorax post procedure. Subsequent CXR/CT with persistent pneumothorax and collapse of right lung. 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 Assessment/Plan # Acute respiratory failure most likely due to pneumonia with parapneumonic effusion Continue with antibiotics Sputum culture with Klebsiella S/p thoracentesis on 04/25 Follow up on pleural fluid cultures ECHO with EF of 70%, no diastolic dysfunction or wall motion abnormality # Right pneumothorax Plan to place chest tube today Surgery team on board # Hx of HTN Monitor blood pressure DVT prophylaxis: Heparin sc Critical care time 50 minutes Entire encounter done via Telemedicine REPLACED BY [facility] Medical History Acute rhinosinusitis URI (upper respiratory infection) Elevated blood pressure reading in office without diagnosis of hypertension (~2014) GERD (gastroesophageal reflux disease) Essential (primary) hypertension Hyperlipidemia Abdominal aortic aneurysm (AAA) Home Medications ?Medication ?Instructions ?Recorded ?Last Taken ?Type pravastatin 40 mg tablet 40 mg PO DAILY high cholesterol 01/16/18 04/22/24 History aspirin 81 mg tablet,delayed 81 mg PO DAILY heart health 08/17/18 04/22/24 History release (Adult Low Dose Aspirin) lisinopril 5 mg tablet 2.5 mg PO DAILY hypertension 04/23/24 04/22/24 History Allergy/AdvReac Type Severity Reaction Status Date / Time No Known Allergies Allergy Verified 04/23/24 12:29 Family History Father Heart disease Hypertension Myocardial infarction TAA Sister Hypertension Mother Hypertension Surgical History History of ear surgery History of inguinal hernia repair Social History Smoking Status: Former smoker Objective Data Objective Data Vital Signs: Vital Signs Last response Temperature 36.5 C L 04/27/24 09:00 Temperature Source Temporal 04/27/24 09:00 Pulse Rate 93 04/27/24 09:00 Pulse Strength Normal (2+) 04/27/24 07:27 Respiratory Rate 18 04/27/24 09:00 Respiratory Effort Normal, Non-Labored 04/27/24 07:27 Respiratory Depth Normal 04/27/24 07:27 Respiratory Pattern Normal 04/27/24 07:27 Blood Pressure 111/59 L 04/27/24 09:00 Blood Pressure Mean 76 04/27/24 09:00 Blood Pressure Source Monitor 04/27/24 09:00 Blood Pressure Position Semi-Fowlers 04/27/24 09:00 Blood Pressure Location Left Arm 04/27/24 09:00 Pulse Ox 92 04/27/24 09:00 Oxygen Delivery Method Room Air 04/27/24 09:00 Oxygen Flow Rate (L/min) 2 04/27/24 07:27 I&O: I&O Last 24 Hours 04/26/24 04/27/24 04/27/24 23:59 11:59 23:59 Intake Total 630 / 630 Output Total 2640 / 2640 500 / 500 Balance -2010 / -2010 -500 / -500 I&O: Total Stay 04/23/24 12:27 thru 04/27/24 06:00 Intake Total 2770 Output Total 49028 Balance -7310 Current Meds Ordered / Administered: Current meds ordered / Administered Generic Name Dose Route Start Last Admin Trade Name Freq PRN Reason Stop Dose Admin Acetaminophen 650 mg 04/23/24 15:03 Acetaminophen 325 Mg Tablet PO Q6H PRN PRN Pain 1-10 Or Fever>100.7 Albuterol Sulfate 2.5 mg 04/23/24 15:03 Albuterol 2.5 Mg/3 Ml Vial.Neb. INHALATION Q2H PRN PRN SOB &/OR WHEEZING Albuterol/Ipratropium 3 ml 04/23/24 15:03 04/26/24 19:35 Ipratropium/Albuterol Sulfate 3 Ml Ampul.Neb INHALATION 3 ml Q4H.RT AUGUSTIN Administration Aspirin 81 mg 04/24/24 08:00 04/27/24 09:32 Aspirin E.C. 81 Mg Tablet PO 81 mg BREAKFAST AUGUSTIN Administration Calcium Carbonate 1,000 mg 04/23/24 22:01 04/27/24 04:08 Calcium Carbonate 500 Mg Tablet PO 1,000 mg Q4H PRN PRN Administration DYSPEPSIA/INDIGESTION Guaifenesin 20 ml 04/23/24 15:03 04/26/24 15:59 Guaifenesin 10 Ml Udc (200mg/10ml) PO 10 ml Q4H PRN PRN Administration COUGH Heparin Sodium (Porcine) 5,000 unit 04/23/24 22:00 04/27/24 09:34 Heparin Injection (Vial) 5,000 Unit/Ml Vial SC 5,000 unit Q12 AUGUSTIN Administration Hydralazine HCl 10 mg 04/23/24 15:24 Hydralazine 20 Mg/Ml Vial IV Q4H PRN PRN Hypertensive Emergency Protocol Sodium Chloride 250 mls @ 15 mls/hr 04/23/24 15:18 IV .[id number] PRN Additional IVPB Infusion Sodium Chloride 250 mls @ 15 mls/hr 04/23/24 15:18 IV .[id number] PRN Saline Flush Levofloxacin 750 mg in 150 mls @ 100 mls/hr 04/28/24 10:00 Levaquin Iv IV Q48 AUGUSTIN Melatonin 3 mg 04/23/24 15:03 Melatonin 3 Mg Tablet PO QHS PRN PRN INSOMNIA Nitroglycerin 0.4 mg 04/23/24 15:03 Nitroglycerin (Inpatient Use) 0.4 Mg Tab.Subl SL Q5M PRN CARDIAC/CHEST PAIN Ondansetron HCl 4 mg 04/23/24 15:03 Ondansetron 4 Mg/2 Ml Vial IV Q8H PRN PRN NAUSEA/VOMITING Phenol/Menthol 3 spray 04/24/24 12:15 04/24/24 21:32 Phenol/Sodium Phenolate 180ml MUCOUS MEM 3 spray Q2H PRN PRN Administration SORE THROAT Pravastatin Sodium 40 mg 04/24/24 10:00 04/27/24 09:33 Pravastatin 40 Mg Tablet PO 40 mg DAILY AUGUSTIN Administration Prednisone 40 mg 04/25/24 08:00 04/27/24 09:32 Prednisone 20 Mg Tablet PO 40 mg DAILY@0800 AUGUSTIN Administration Senna/Docusate Sodium 2 tablet 04/23/24 15:03 Senna/Docusate Sodium 1 Tablet PO BID PRN PRN Constipation Sodium Chloride 10 - 40 ml 04/23/24 15:18 04/26/24 10:14 0.9% Saline Lock 10 Ml Syringe IV 10 ml UD PRN Administration SALINE FLUSH Sodium Chloride 1 spray 04/26/24 21:27 04/27/24 07:33 Sodium Chloride 0.65% 1 [place].Btl NASAL 1 spray TID PRN PRN Administration NASAL DRYNESS Medical Records Data Medical Nutrition Assessment Dietitian: Malnutrition Criteria Met Start: 04/24/24 10:26 Freq: Status: Active Protocol: Document 04/24/24 10:26 [facility] (Rec: 04/24/24 10:26 [facility] [id number]) Nutrition Malnutrition Evidence of Malnutrition Exists Yes Malnutrition (severe): Acute Illness/Injury Evidenced By Suboptimal Energy Intake ( Severe),Weight Loss (Severe) Clinical Problem Acute Disease or Injury Related Malnutrition Etiology related to inadequate energy intake Signs/Symptoms as evidenced by 5% unintended wt loss and 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 Lab / Micro Data 04/27/24 05:42 04/27/24 05:42 Labs: Laboratory Results - last 24 hr 04/27/24 05:42: WBC 12.9 H, RBC 4.56 L, Hgb 13.0, Hct 39.2 L, MCV 86.0, MCH 28.5, MCHC 33.2, RDW Std Deviation 42.2, RDW Coeff of Wilbert 13.5, Plt Count 245, MPV 10.0, Immature Gran % (Auto) 0.500, Neut % (Auto) 90.1 H, Lymph % (Auto) 5.3 L, [place] % (Auto) 4.0, Eos % (Auto) 0.0, Baso % (Auto) 0.1, Absolute Neuts (auto) 11.7 H, Absolute Lymphs (auto) 0.69 L, Nucleated RBC % 0, Sodium 130 L, Potassium 4.2, Chloride 96 L, Carbon Dioxide 25.0, Anion Gap 9, BUN 28 H, Creatinine 1.33 H, Estim Creat Clear Calc 46.29, Est GFR (MDRD) Af Amer 67, Est GFR (MDRD) Non-Af 56 L, BUN/Creatinine Ratio 21.1 H, Glucose 95, Calcium 9.6 Micro: Microbiology 04/25/24 14:00 Fluid - Pleural (Lung) Gram Stain - Final 04/25/24 14:00 Fluid - Pleural (Lung) Anaerobic Culture - Preliminary No growth in 48 hours. 04/23/24 22:18 Sputum, Expectorated/Coughed Gram Stain - Final 04/23/24 22:18 Sputum, Expectorated/Coughed Respiratory Culture - Final Klebsiella oxytoca Imaging Radiology Impression Chest X-Ray 04/27/24 05:55 IMPRESSION: Stable exam. Electronically Signed: Tono Bowens MD at 8:52 EDT , Chest CT 04/27/24 09:26 IMPRESSION: 1. Moderate right hydropneumothorax with atelectatic changes in the right lower lung. 2. Mild stranding/atelectasis in the left lower lobe. Electronically Signed: Rodolfo Lerma MD at 10:23 EDT , ADDENDUM: 04/27/24 1116 IMPRESSION: undefined Assessment and Plan . Assessment and plan: Critical Care Time: The entirety of this encounter was done via Telemedicine
[2024-04-27] MEDS: Morphine 2 MG/ML Syringe IV (12:07)
[2024-04-27] MEDS: 0.9% Saline Lock 10 ML Syringe IV (12:07)
[2024-04-27] MEDS: Lidocaine 2% (20 ml mdv) 20 ML Vial INFILT (12:15)
--- NOTE | 2024-04-27 12:40 | RAD_ITS ---
STUDY: X-RAY CHEST REASON FOR EXAM: Male, 73 years old. Chest tube placement TECHNIQUE: Frontal view of the chest COMPARISON: 04/27/2024 FINDINGS: There is been interval placement of a right-sided chest tube with interval resolution of the previously seen right pneumothorax. There is no left pneumothorax. There is stable atelectasis at the right lung base. The left lung is clear. The heart is normal in size. The visualized osseous structures are within normal limits. RAD/Chest 1 View (Portable) IMPRESSION: Interval placement of a right-sided chest tube with interval resolution of the previously seen right pneumothorax. Electronically Signed: Tono Bowens MD at 13:49 EDT ,
--- NOTE | 2024-04-27 12:45 | OP.PCM_ITS ---
Report of Operation Date of Procedure: 04/27/24 Pre-Operative Diagnosis: Right hydropneumothorax Post-Operative Diagnosis: Same Surgery/Procedure Performed:: Placement of right chest tube Surgeon: Migdalia Mckeon Type of Anesthesia: Local Estimated Blood Loss (mL): < 10 cc Description of Procedure: Informed consent was obtained. Patient's right anterior axillary/chest was prepped draped usual sterile fashion with chlorhexidine. 2% lidocaine plain was used a total of 17 cc throughout the procedure. Incision was anterior axillary line near at the level of the in framammary fold. 15 blade scalpel was used to make incision. Tonsils used to dissect the tissue was able to dissect over the rib into the pleural space patient tolerated well. There was a small pradhan of air. A 20 Persian chest tube was then placed at 16 cm at the skin. This was placed to Pleur-evac and did have intermittent airleak and about a total of 35 cc of serosanguineous fluid in the Pleur-evac. This was secured with 0 silk suture to the skin and also the incision site had a vertical mattress suture placed with the 0 silk. Vaseline gauze was placed and 4 x 4's and tape. Patient tolerated procedure well postprocedure chest x-ray showed chest tube in good position with good reexpansion of the lung. Will keep patient on -20 Pleur-evac. Multi Select Codes Respiratory/Cardiovascular Resp/Cardiovascular CPT Codes: 55372 Insertion of chest tube
[2024-04-27 15:00] VITALS: BP 113/68; PULSE 62; RESP 18; TEMP 36.4; O2SAT 94
[2024-04-27 22:52] VITALS: BP 101/62; PULSE 91; RESP 16; TEMP 36.6; O2SAT 93
[2024-04-28] VITALS (8 sets, daily range): BP systolic 100–119; BP diastolic 52–70; PULSE 85–115; RESP 16–20; TEMP 36.6–36.9; O2SAT 92–95
[2024-04-28 05:55] LABS: Absolute Lymphocyte Count 0.61 X10^3/uL (0.83-4.51); Absolute Neutrophil Count 8.4 X10^3/uL (2.0-7.7); Basophil# 0.01 X10^3/uL; Basophil% 0.1 % (0-1); Hematocrit 36.5 % (40-54); Hemoglobin 11.9 g/dL (13.0-16.5); Lymphocyte # 0.61 X10^3/ul (0.83-4.51); Lymphocyte % 6.5 % (19-41); Mean Corp Hgb Conc 32.6 g/dL (32-36); Mean Corpuscular Hgb 28.1 pg (27.0-32.0); Mean Corpuscular Volume 86.3 fL (80-94); Monocyte# 0.34 X10^3/uL; Monocyte% 3.6 % (0-10); NRBC Flagged by Analyzer 0 % (0-5); Neutrophil # 8.35 X10^3/uL (2.7-7.7); Neutrophil % 89.4 % (47-70); Platelet Count 205 K/mm3 (150-450); RBC Distribution Width CV 13.6 % (11.6-14.6); RBC Distribution Width SD 42.5 fl (35.1-43.9); Red Blood Count 4.23 M/mm3 (4.6-6.2); White Blood Count 9.4 K/mm3 (4.4-11.0)
--- NOTE | 2024-04-28 05:55 | RAD_ITS ---
EXAM: XR CHEST, 1 VIEW CLINICAL INDICATION: chest tube -- portable TECHNIQUE: Frontal view of the chest. COMPARISON: Previous chest radiographs of 04/27/2024 and 04/26/2024. FINDINGS: LUNGS AND PLEURAL SPACES: There is developing patchy infiltrate in the retrocardiac portion of the left lower lobe, which could be due to atelectasis versus early pneumonia. The lungs remain hyperinflated due to pulmonary emphysema. There is continued blunting of the right lateral costophrenic angle consistent with a small right pleural effusion. No pneumothorax is visualized. HEART: Normal heart size. Pruning of the peripheral pulmonary vascular markings due to pulmonary emphysema. MEDIASTINUM: Stable minimal elongation of the thoracic aorta. BONES/JOINTS: Thoracic degenerative spurring. SOFT TISSUES: Vascular calcification within the neck. Trace of soft tissue emphysema adjacent to the internal right chest tube. TUBES, LINES AND DEVICES: Right chest tube remains in place, extending to the right apex. RAD/Chest 1 View (Portable) IMPRESSION: 1. Right chest tube remaining in place. 2. No pneumothorax identified. 3. Stable small right pleural effusion. 4. Minimal developing retrocardiac infiltrate secondary to atelectasis versus pneumonia. Electronically Signed: Cameron Lynn MD at 7:37 EDT ,
[2024-04-28 06:17] LABS: Anion Gap 5 (5-15); BUN 23 mg/dL (7-18); BUN/Creat Ratio 18.3 RATIO (10-20); Calcium,Total 8.8 mg/dL (8.5-10.1); Chloride 97 mmol/L (98-107); Creatinine, Serum 1.26 mg/dL (0.70-1.30); EST Glomerular Filtration Rate 59 mL/min (>60); Est Glom Filt Rate - Afr Amer 72 mL/min (>60); Estimated Creatinine Clearance 48.86 ml/min; Glucose 96 mg/dL (74-106); Sodium Level 130 mmol/L (136-145)
--- NOTE | 2024-04-28 07:50 | PCM.PN.SRG ---
Subjective Subjective Patient states his breathing is better. Patient does have a continuous leak, chest x-ray still showed tube in good position with expansion of the lung Objective Data Objective Data Vital Signs: Vital Signs Temp Pulse Resp BP Pulse Ox O2 Del Method O2 Flow Rate 98 F 85 16 115/70 94 Room Air 2 04/28/24 04:00 04/28/24 04:00 04/28/24 04:00 04/28/24 04:00 04/28/24 04:00 04/28/24 04:00 04/27/24 15:55 Oxygen Flow Rate (L/min) 2 Oxygen Delivery Method Room Air Weight: 150 lb 5.684 oz Body Mass Index (BMI) 20.9 Intake & Output: Intake and Output for Last 24 Hours 04/26/24 04/27/24 04/28/24 23:59 23:59 23:59 Intake Total 630 / 630 720 / 720 Output Total 2640 / 2640 1506 / 1506 370 / 370 Balance -2009 / -786 / -786 -370 / -370 Medical Nutrition Assessment Dietitian: Malnutrition Criteria Met Start: 04/24/24 10:26 Freq: Status: Active Protocol: Document 04/24/24 10:26 [facility] (Rec: 04/24/24 10:26 [facility] [id number]) Nutrition Malnutrition Evidence of Malnutrition Exists Yes Malnutrition (severe): Acute Illness/Injury Evidenced By Suboptimal Energy Intake ( Severe),Weight Loss (Severe) Clinical Problem Acute Disease or Injury Related Malnutrition Etiology related to inadequate energy intake Signs/Symptoms as evidenced by 5% unintended wt loss and po intake 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 Lab / Micro Data 04/28/24 05:39 04/28/24 05:39 Labs: Laboratory Results - last 24 hr 04/25/24 14:00: Miscellaneous Cytology SEE PATHOLOGY REPORT 04/28/24 05:39: WBC 9.4, RBC 4.23 L, Hgb 11.9 L, Hct 36.5 L, MCV 86.3, MCH 28.1, MCHC 32.6, RDW Std Deviation 42.5, RDW Coeff of Wilbert 13.6, Plt Count 205, MPV 10.0, Immature Gran % (Auto) 0.400, Neut % (Auto) 89.4 H, Lymph % (Auto) 6.5 L, [place] % (Auto) 3.6, Eos % (Auto) 0.0, Baso % (Auto) 0.1, Absolute Neuts (auto) 8.4 H, Absolute Lymphs (auto) 0.61 L, Nucleated RBC % 0, Sodium 130 L, Potassium 4.0, Chloride 97 L, Carbon Dioxide 28.0, Anion Gap 5, BUN 23 H, Creatinine 1.26, Estim Creat Clear Calc 48.86, Est GFR (MDRD) Af Amer 72, Est GFR (MDRD) Non-Af 59 L, BUN/Creatinine Ratio 18.3, Glucose 96, Calcium 8.8 Micro: Microbiology 04/25/24 14:00 Fluid - Pleural (Lung) Gram Stain - Final 04/25/24 14:00 Fluid - Pleural (Lung) Anaerobic Culture - Preliminary No growth in 48 hours. 04/23/24 22:18 Sputum, Expectorated/Coughed Gram Stain - Final 04/23/24 22:18 Sputum, Expectorated/Coughed Respiratory Culture - Final Klebsiella oxytoca 04/23/24 14:21 Mucosa - Nose Respiratory Panel (PCR) - Final Radiography Diagnostic Testing: Radiology Impression Chest X-Ray 04/27/24 05:55 IMPRESSION: Stable exam. Electronically Signed: Tono Bowens MD at 8:52 EDT , Chest CT 04/27/24 09:26 IMPRESSION: 1. Moderate right hydropneumothorax with atelectatic changes in the right lower lung. 2. Mild stranding/atelectasis in the left lower lobe. Electronically Signed: Rodolfo Lerma MD at 10:23 EDT , ADDENDUM: 04/27/24 1116 IMPRESSION: undefined Chest X-Ray 04/27/24 12:40 IMPRESSION: Interval placement of a right-sided chest tube with interval resolution of the previously seen right pneumothorax. Electronically Signed: Tono Bowens MD at 13:49 EDT , Chest X-Ray 04/28/24 05:55 IMPRESSION: 1. Right chest tube remaining in place. 2. No pneumothorax identified. 3. Stable small right pleural effusion. 4. Minimal developing retrocardiac infiltrate secondary to atelectasis versus pneumonia. Electronically Signed: Cameron Lynn MD at 7:37 EDT , Physical Exam Narrative Continuous leak in Pleur-evac to -20 suction Const oriented x3 and no apparent distress Assessment & Plan Assessment/Plan (1) Pneumothorax on right: PLAN: Plan Patient does have an air leak in the Pleur-evac will continue to monitor and keep to -20 suction. Patient is aware that if the leak continues with plan to transfer to tertiary care facility with thoracic. Migdalia Mckeon M.D. Pager: [phone] [facility] [address] [place] [address], [facility], [address] [place] [id number] Office: [phone] Charges/Coding Multi Select Codes Visit Charges Visit Charges: 64430 Subs Hosp L2
[2024-04-28] MEDS: Pravastatin 40 MG Tablet PO (09:08)
[2024-04-28] MEDS: levoFLOXacin IV 750 MG/150 ML BAG 100 MG IV (09:08)
[2024-04-28] MEDS: Aspirin E.C. 81 MG Tablet PO (09:08)
[2024-04-28] MEDS: Heparin Injection (Vial) 5,000 UNIT/ML VIAL 5000 UNIT SC ×2 (09:08→22:13)
[2024-04-28] MEDS: Ipratropium/Albuterol Sulfate 3 ML AMPUL.NEB INHALATION ×3 (11:06→19:57)
--- NOTE | 2024-04-28 17:25 | PCM.PN.HOSP ---
Reason for Visit Reason for Visit: Diagnoses Hypo-osmolality and hyponatremia (04/23/24) Pleural effusion, not elsewhere classified (04/23/24) Pneumothorax, unspecified (04/23/24) Shortness of breath (04/23/24) Subjective Subjective Feeling better today after chest tube placement yesterday Objective Data Objective Data Vital Signs: Vital Signs Temp Pulse Resp BP Pulse Ox O2 Del Method O2 Flow Rate 98.4 F 100 18 102/55 L 95 Room Air 1 04/28/24 14:25 04/28/24 14:25 04/28/24 15:35 04/28/24 14:25 04/28/24 14:25 04/28/24 14:25 04/28/24 11:07 Oxygen Flow Rate (L/min) 1 Oxygen Delivery Method Room Air Weight: 68.2 kg Body Mass Index (BMI) 20.9 Intake & Output: Intake and Output for Last 24 Hours 04/26/24 04/27/24 04/28/24 23:59 23:59 23:59 Intake Total 630 / 630 720 / 720 150 / 150 Output Total 2640 / 2640 1506 / 1506 1270 / 1270 Balance -2009 / -786 / -786 -1120 / -1120 Medical Nutrition Assessment Dietitian: Malnutrition Criteria Met Start: 04/24/24 10:26 Freq: Status: Active Protocol: Document 04/24/24 10:26 JORDAN (Rec: 04/24/24 10:26 JORDAN [id number]) Nutrition Malnutrition Evidence of Malnutrition Exists Yes Malnutrition (severe): Acute Illness/Injury Evidenced By Suboptimal Energy Intake ( Severe),Weight Loss (Severe) Clinical Problem Acute Disease or Injury Related Malnutrition Etiology related to inadequate energy intake Signs/Symptoms as evidenced by 5% unintended wt loss and po intake 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 Lab / Micro Data 04/28/24 05:39 04/28/24 05:39 Labs: Laboratory Results - last 24 hr 04/25/24 14:00: Miscellaneous Cytology SEE PATHOLOGY REPORT 04/28/24 05:39: WBC 9.4, RBC 4.23 L, Hgb 11.9 L, Hct 36.5 L, MCV 86.3, MCH 28.1, MCHC 32.6, RDW Std Deviation 42.5, RDW Coeff of Wilbert 13.6, Plt Count 205, MPV 10.0, Immature Gran % (Auto) 0.400, Neut % (Auto) 89.4 H, Lymph % (Auto) 6.5 L, [place] % (Auto) 3.6, Eos % (Auto) 0.0, Baso % (Auto) 0.1, Absolute Neuts (auto) 8.4 H, Absolute Lymphs (auto) 0.61 L, Nucleated RBC % 0, Sodium 130 L, Potassium 4.0, Chloride 97 L, Carbon Dioxide 28.0, Anion Gap 5, BUN 23 H, Creatinine 1.26, Estim Creat Clear Calc 48.86, Est GFR (MDRD) Af Amer 72, Est GFR (MDRD) Non-Af 59 L, BUN/Creatinine Ratio 18.3, Glucose 96, Calcium 8.8 Micro: Microbiology 04/25/24 14:00 Fluid - Pleural (Lung) Gram Stain - Final 04/25/24 14:00 Fluid - Pleural (Lung) Body Fluid Culture - Final Culture exhibits no growth. 04/25/24 14:00 Fluid - Pleural (Lung) Anaerobic Culture - Preliminary No growth in 48 hours. 04/23/24 22:18 Sputum, Expectorated/Coughed Gram Stain - Final 04/23/24 22:18 Sputum, Expectorated/Coughed Respiratory Culture - Final Klebsiella oxytoca 04/23/24 14:21 Mucosa - Nose Respiratory Panel (PCR) - Final Radiography Diagnostic Testing: Radiology Impression Chest X-Ray 04/28/24 05:55 IMPRESSION: 1. Right chest tube remaining in place. 2. No pneumothorax identified. 3. Stable small right pleural effusion. 4. Minimal developing retrocardiac infiltrate secondary to atelectasis versus pneumonia. Electronically Signed: Cameron Lynn MD at 7:37 EDT , Physical Exam Narrative General: Alert, oriented, no apparent distress HEENT: Atraumatic, normocephalic Eyes: Anicteric, normal conjunctiva, extraocular movements grossly intact Neck: Supple Respiratory: Improved aeration Cardiovascular: Regular rate and rhythm GI: Soft, nontender, nondistended Extremities: No edema Musculoskeletal: Moving all extremities Neuro: No overt focal neurological deficits Skin: No rashes appreciated Psych: Cooperative Assessment & Plan Assessment/Plan (1) Pleural effusion on right: (2) SOB (shortness of breath): (3) Hyponatremia: PLAN: Plan #Pneumothorax -10% pneumothorax on the right after thoracentesis, patient presently stable -2 to 3 L O2 satting low 90s -Chest x-ray if any clinical change if not chest x-ray in a.m. and low threshold for pulmonary involvement -04/26: Patient has some residual pneumothorax, will repeat in a.m., if not improved will need to consult for likely chest tube placement, continue O2, patient presently stable -04/27: Patient still dyspneic with limitations and chest x-ray with persistent pneumothorax, discussed with surgery and CT obtained, ultimately chest tube placed with reexpansion of lung, pulmonology also consulted and evaluated -04/28: Patient feeling better after chest tube placement however airleak still present, will be reevaluated in the a.m., possibility patient will need transferred if this is not resolving #Large right sided pleural effusion?parapneumonic effusion -Seen on chest CT on presentation -Patient status post thoracentesis with 1800 cc of fluid drained -Awaiting fluid studies -X-ray performed after showed 10% right pneumothorax and findings suggestive of trapped lung at right base -Patient on 2 L O2 postthoracentesis and stable sats in low 90s -Echo ordered w/ EF 70% and no diastolic dysfunction noted -04/26: Patient grew Klebsiella in his sputum, he had been on antibiotics for several days prior to thoracentesis so given that in conjunction with symptoms leading up to admission and positive sputum culture seems this is likely most consistent with parapneumonic effusion. Will place patient on Levaquin and will need repeat imaging in 6 to 8 weeks and information for pulm follow-up -04/27: Remains on IV antibiotics, pulm evaluated today and agreed with present plan -04/28: Continue antibiotics # Mild COPD exacerbation -Patient on steroids and oral antibiotics -Continue nebs -Continue present management -Pt is growing GNR lactose radio recorder in sputum, f/u culture and sensitivities -04/26: Breathing improving, is on p.o. steroids, will continue at this time for short course -04/27: Done with p.o. steroids -04/28: COPD exacerbation resolved, no further steroids #HARPREET?resolved -BUN and creatinine have been uptrending, creatinine up 0.30, holding Lasix -Repeat in a.m. -Avoid nephrotoxic agents avoid nephrotoxic agents -Renal US ordered -04/26: Renal ultrasound not overtly remarkable, creatinine did downtrend today -04/27: Continues to improve with conservative management -04/28: BUN down to 23 and creatinine 1.26, continue present management #Hyponatremia -129 on presentation, stable at 128 -Will check urine studies -04/26: Sodium up to 130, do not think we need additional workup at this time -04/27: 130 today, seems to be possible SIADH is presently stable and patient asymptomatic -04/28: Sodium remains 130 # Leukocytosis - white blood cell count 19.5 today however patient received steroids, suspect this is the cause -Cont po abx and prednisone, monitor for s/s of infection -04/26: White blood cell count 20, afebrile, treating with Levaquin, still suspect this is largely due to steroids but did have positive sputum culture, continue antibiotics and monitor patient -04/27: Improving since antibiotics were started, continue IV antibiotics -04/28: White blood cell count significantly improved #DVT ppx: Heparin subcu Maida Wheat MD Time spent in the patient's overall evaluation,decision-making process, review of diagnostic data, adjustment of management, discussion with other providers, nursing nursing and ancillary staff involved in patient's care documentation, 35 minutes Charges/Coding Visit Charges Inpatient E&M: 48407 Subs Hosp L2
[2024-04-28] MEDS: Senna/Docusate Sodium 1 Tablet 2 TABLET PO (17:52)
[2024-04-29] VITALS (7 sets, daily range): BP systolic 98–111; BP diastolic 49–58; PULSE 84–107; RESP 18–20; TEMP 36.3–37.1; O2SAT 92–103
--- NOTE | 2024-04-29 05:55 | RAD_ITS ---
EXAM: XR CHEST, 1 VIEW CLINICAL INDICATION: chest tube -- portable TECHNIQUE: Frontal view of the chest. COMPARISON: Previous chest radiographs of 04/28/2024 and 04/27/2024. FINDINGS: LUNGS AND PLEURAL SPACES: The retrocardiac infiltrate seen on the previous study has partially cleared, consistent with resolving atelectasis. Lungs remain hyperinflated due to pulmonary emphysema. Right lateral costophrenic angle remains blunted by small right pleural effusion. No pneumothorax is noted. HEART: Unremarkable. Cardiac silhouette not enlarged. Pruning of the peripheral pulmonary vascular markings due to pulmonary emphysema. MEDIASTINUM: Stable calcification and minimal elongation of the thoracic aorta. BONES/JOINTS: No acute osseous abnormality. SOFT TISSUES: Mild soft tissue emphysema noted about the right lateral ribs at the chest tube entry point, with interval increase since the previous exam. TUBES, LINES AND DEVICES: Right chest tube remains in place, unchanged in position and expanded and extending to the right apex. RAD/Chest 1 View (Portable) IMPRESSION: 1. Increasing soft tissue emphysema about the right lower ribs. 2. Stable positioning of right chest tube; no pneumothorax. 3. Resolving minimal retrocardiac infiltrate, probably atelectasis. Electronically Signed: Cameron Lynn MD at 6:25 EDT ,
[2024-04-29 06:33] LABS: Absolute Lymphocyte Count 0.46 X10^3/uL (0.83-4.51); Basophil# 0.01 X10^3/uL; Basophil% 0.1 % (0-1); Eosinophil# 0.05 X10^3/uL; Eosinophils% 0.6 % (0-5); Hemoglobin 11.9 g/dL (13.0-16.5); Lymphocyte # 0.46 X10^3/ul (0.83-4.51); Lymphocyte % 5.9 % (19-41); Mean Corp Hgb Conc 33.1 g/dL (32-36); Mean Corpuscular Hgb 28.3 pg (27.0-32.0); Mean Corpuscular Volume 85.5 fL (80-94); Mean Platelet Vol. 9.8 fl (6.2-12.0); Monocyte# 0.24 X10^3/uL; Monocyte% 3.1 % (0-10); NRBC Flagged by Analyzer 0 % (0-5); Neutrophil # 6.95 X10^3/uL (2.7-7.7); Neutrophil % 89.4 % (47-70); POSITIVE DIFFERENTIAL YES; Platelet Count 191 K/mm3 (150-450); RBC Distribution Width CV 13.7 % (11.6-14.6); RBC Distribution Width SD 42.7 fl (35.1-43.9); Red Blood Count 4.21 M/mm3 (4.6-6.2); White Blood Count 7.8 K/mm3 (4.4-11.0)
[2024-04-29 07:15] LABS: Anion Gap 8 (5-15); BUN 21 mg/dL (7-18); Calcium,Total 8.1 mg/dL (8.5-10.1); Chloride 97 mmol/L (98-107); EST Glomerular Filtration Rate 52 mL/min (>60); Est Glom Filt Rate - Afr Amer 63 mL/min (>60); Estimated Creatinine Clearance 43.98 ml/min; Glucose 97 mg/dL (74-106); Potassium 3.8 mmol/L (3.5-5.1); Sodium Level 130 mmol/L (136-145)
[2024-04-29] MEDS: Ipratropium/Albuterol Sulfate 3 ML AMPUL.NEB INHALATION ×2 (07:43→11:01)
--- NOTE | 2024-04-29 08:37 | PN.SURG_ITS ---
Subjective Subjective no leak this AM on -20 and CXR- no PTX, pt did still have leak yesterday afternoon when I saw him Objective Data Objective Data Vital Signs: Vital Signs Temp Pulse Resp BP Pulse Ox O2 Del Method O2 Flow Rate 98.4 F 84 18 100/55 L 93 Room Air 1 04/29/24 05:00 04/29/24 05:00 04/29/24 05:00 04/29/24 05:00 04/29/24 05:00 04/29/24 05:00 04/28/24 11:07 Oxygen Flow Rate (L/min) 1 Oxygen Delivery Method Room Air Weight: 150 lb 5.684 oz Body Mass Index (BMI) 20.9 Intake & Output: Intake and Output for Last 24 Hours 04/27/24 04/28/24 04/29/24 23:59 23:59 23:59 Intake Total 720 / 720 150 / 390 600 / 600 Output Total 1506 / 1506 1670 / 1970 930 / 930 Balance -786 / -786 -1520 / -1580 -330 / -330 Medical Nutrition Assessment Dietitian: Malnutrition Criteria Met Start: 04/24/24 10:26 Freq: Status: Active Protocol: Document 04/24/24 10:26 JORDAN (Rec: 04/24/24 10:26 [facility] [id number]) Nutrition Malnutrition Evidence of Malnutrition Exists Yes Malnutrition (severe): Acute Illness/Injury Evidenced By Suboptimal Energy Intake ( Severe),Weight Loss (Severe) Clinical Problem Acute Disease or Injury Related Malnutrition Etiology related to inadequate energy intake Signs/Symptoms as evidenced by 5% unintended wt loss and 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 Lab / Micro Data 04/29/24 06:19 04/29/24 06:19 Labs: Laboratory Results - last 24 hr 04/29/24 06:19: WBC 7.8, RBC 4.21 L, Hgb 11.9 L, Hct 36.0 L, MCV 85.5, MCH 28.3, MCHC 33.1, RDW Std Deviation 42.7, RDW Coeff of Wilbert 13.7, Plt Count 191, MPV 9.8, Immature Gran % (Auto) 0.900, Neut % (Auto) 89.4 H, Lymph % (Auto) 5.9 L, [place] % (Auto) 3.1, Eos % (Auto) 0.6, Baso % (Auto) 0.1, Absolute Neuts (auto) 7.0, Absolute Lymphs (auto) 0.46 L, Nucleated RBC % 0, Sodium 130 L, Potassium 3.8, Chloride 97 L, Carbon Dioxide 25.0, Anion Gap 8, BUN 21 H, Creatinine 1.40 H, Estim Creat Clear Calc 43.98, Est GFR (MDRD) Af Amer 63, Est GFR (MDRD) Non- Af 52 L, BUN/Creatinine Ratio 15.0, Glucose 97, Calcium 8.1 L Micro: Microbiology 04/25/24 14:00 Fluid - Pleural (Lung) Gram Stain - Final 04/25/24 14:00 Fluid - Pleural (Lung) Body Fluid Culture - Final Culture exhibits no growth. 04/25/24 14:00 Fluid - Pleural (Lung) Anaerobic Culture - Preliminary No growth in 48 hours. 04/23/24 22:18 Sputum, Expectorated/Coughed Gram Stain - Final 04/23/24 22:18 Sputum, Expectorated/Coughed Respiratory Culture - Final Klebsiella oxytoca 04/23/24 14:21 Mucosa - Nose Respiratory Panel (PCR) - Final Radiography Diagnostic Testing: Radiology Impression Chest X-Ray 04/29/24 05:55 IMPRESSION: 1. Increasing soft tissue emphysema about the right lower ribs. 2. Stable positioning of right chest tube; no pneumothorax. 3. Resolving minimal retrocardiac infiltrate, probably atelectasis. Electronically Signed: Cameron Lynn MD at 6:25 EDT , Physical Exam Narrative no leak in Pleur-evac to -20 suction w coughing Const oriented x3 and no apparent distress Assessment & Plan Assessment/Plan (1) Pneumothorax on right: PLAN: Plan Patient does not have air leak in the Pleur-evac will continue to monitor and keep to -20 suction today and will change to waterseal tomorrow if continues to have no leak- Dr. Friedman will be covering. Patient is aware that if a leak were to continue would plan to transfer to tertiary care facility with thoracic. Migdalia Mckeon M.D. Pager: [phone] [facility] [address] [place] [address], [facility], [address] [place] [address] Office: [phone] Charges/Coding Visit Charges Inpatient E&M: 29852 Subs Hosp L2
[2024-04-29] MEDS: 0.9% Saline Lock 10 ML Syringe IV (08:52)
[2024-04-29] MEDS: Aspirin E.C. 81 MG Tablet PO (08:52)
[2024-04-29] MEDS: Senna/Docusate Sodium 1 Tablet 2 TABLET PO (08:52)
[2024-04-29] MEDS: Heparin Injection (Vial) 5,000 UNIT/ML VIAL 5000 UNIT SC ×2 (08:52→20:11)
[2024-04-29] MEDS: Pravastatin 40 MG Tablet PO (08:52)
[2024-04-29 13:02] LABS: Pathologist Comment/Body Fluid Reviewed
--- NOTE | 2024-04-29 14:44 | PCM.PN.HOSP ---
Reason for Visit Reason for Visit: Diagnoses Hypo-osmolality and hyponatremia (04/23/24) Pleural effusion, not elsewhere classified (04/23/24) Pneumothorax, unspecified (04/23/24) Shortness of breath (04/23/24) Subjective Subjective Air leak improved today, pt feeling better than previously Objective Data Objective Data Vital Signs: Vital Signs Temp Pulse Resp BP Pulse Ox O2 Del Method O2 Flow Rate 97.9 F 85 20 H 111/55 L 92 Room Air 1 04/29/24 08:49 04/29/24 11:01 04/29/24 11:01 04/29/24 08:49 04/29/24 08:49 04/29/24 08:49 04/28/24 11:07 Oxygen Flow Rate (L/min) 1 Oxygen Delivery Method Room Air Weight: 68.2 kg Body Mass Index (BMI) 20.9 Intake & Output: Intake and Output for Last 24 Hours 04/27/24 04/28/24 04/29/24 23:59 23:59 23:59 Intake Total 720 / 720 150 / 390 600 / 600 Output Total 1506 / 1506 1670 / 1970 1030 / 1030 Balance -786 / -786 -1520 / -1580 -430 / -430 Medical Nutrition Assessment Dietitian: Malnutrition Criteria Met Start: 04/24/24 10:26 Freq: Status: Active Protocol: Document 04/24/24 10:26 JORDAN (Rec: 04/24/24 10:26 JORDAN [id number]) Nutrition Malnutrition Evidence of Malnutrition Exists Yes Malnutrition (severe): Acute Illness/Injury Evidenced By Suboptimal Energy Intake ( Severe),Weight Loss (Severe) Clinical Problem Acute Disease or Injury Related Malnutrition Etiology related to inadequate energy intake Signs/Symptoms as evidenced by 5% unintended wt loss and po intake 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 Lab / Micro Data 04/29/24 06:19 04/29/24 06:19 Labs: Laboratory Results - last 24 hr 04/25/24 14:00: Fl Pathologist Comment Reviewed 04/29/24 06:19: WBC 7.8, RBC 4.21 L, Hgb 11.9 L, Hct 36.0 L, MCV 85.5, MCH 28.3, MCHC 33.1, RDW Std Deviation 42.7, RDW Coeff of Wilbert 13.7, Plt Count 191, MPV 9.8, Immature Gran % (Auto) 0.900, Neut % (Auto) 89.4 H, Lymph % (Auto) 5.9 L, [place] % (Auto) 3.1, Eos % (Auto) 0.6, Baso % (Auto) 0.1, Absolute Neuts (auto) 7.0, Absolute Lymphs (auto) 0.46 L, Nucleated RBC % 0, Sodium 130 L, Potassium 3.8, Chloride 97 L, Carbon Dioxide 25.0, Anion Gap 8, BUN 21 H, Creatinine 1.40 H, Estim Creat Clear Calc 43.98, Est GFR (MDRD) Af Amer 63, Est GFR (MDRD) Non-Af 52 L, BUN/Creatinine Ratio 15.0, Glucose 97, Calcium 8.1 L Micro: Microbiology 04/25/24 14:00 Fluid - Pleural (Lung) Gram Stain - Final 04/25/24 14:00 Fluid - Pleural (Lung) Body Fluid Culture - Final Culture exhibits no growth. 04/25/24 14:00 Fluid - Pleural (Lung) Anaerobic Culture - Preliminary No growth in 48 hours. 04/23/24 22:18 Sputum, Expectorated/Coughed Gram Stain - Final 04/23/24 22:18 Sputum, Expectorated/Coughed Respiratory Culture - Final Klebsiella oxytoca 04/23/24 14:21 Mucosa - Nose Respiratory Panel (PCR) - Final Radiography Diagnostic Testing: Radiology Impression Chest X-Ray 04/29/24 05:55 IMPRESSION: 1. Increasing soft tissue emphysema about the right lower ribs. 2. Stable positioning of right chest tube; no pneumothorax. 3. Resolving minimal retrocardiac infiltrate, probably atelectasis. Electronically Signed: Cameron Lynn MD at 6:25 EDT , Physical Exam Narrative General: Alert, oriented, no apparent distress HEENT: Atraumatic, normocephalic Eyes: Anicteric, normal conjunctiva, extraocular movements grossly intact Neck: Supple Respiratory: Improved aeration Cardiovascular: Regular rate and rhythm, intermittent mild tachycardia GI: Soft, nontender, nondistended Extremities: No edema Musculoskeletal: Moving all extremities Neuro: No overt focal neurological deficits Skin: No rashes appreciated Psych: Cooperative Assessment & Plan Assessment/Plan (1) Pleural effusion on right: (2) SOB (shortness of breath): (3) Hyponatremia: PLAN: Plan #Pneumothorax -10% pneumothorax on the right after thoracentesis, patient presently stable -2 to 3 L O2 satting low 90s -Chest x-ray if any clinical change if not chest x-ray in a.m. and low threshold for pulmonary involvement -04/26: Patient has some residual pneumothorax, will repeat in a.m., if not improved will need to consult for likely chest tube placement, continue O2, patient presently stable -04/27: Patient still dyspneic with limitations and chest x-ray with persistent pneumothorax, discussed with surgery and CT obtained, ultimately chest tube placed with reexpansion of lung, pulmonology also consulted and evaluated -04/28: Patient feeling better after chest tube placement however airleak still present, will be reevaluated in the a.m., possibility patient will need transferred if this is not resolving -04/29: No air leak, CT to suction today, surgery to f/u in AM, on RA at this point #Sinus tachycardia -Suspect pt with poor reserve, deconditioning, albuterol nebs, and pain contributing -Appears sinus -Pt on tele -No further workup at this time, had echo several days ago which was unremarkable #Large right sided pleural effusion?parapneumonic effusion -Seen on chest CT on presentation -Patient status post thoracentesis with 1800 cc of fluid drained -Awaiting fluid studies -X-ray performed after showed 10% right pneumothorax and findings suggestive of trapped lung at right base -Patient on 2 L O2 postthoracentesis and stable sats in low 90s -Echo ordered w/ EF 70% and no diastolic dysfunction noted -04/26: Patient grew Klebsiella in his sputum, he had been on antibiotics for several days prior to thoracentesis so given that in conjunction with symptoms leading up to admission and positive sputum culture seems this is likely most consistent with parapneumonic effusion. Will place patient on Levaquin and will need repeat imaging in 6 to 8 weeks and information for pulm follow-up -04/27: Remains on IV antibiotics, pulm evaluated today and agreed with present plan -04/28: Continue antibiotics -04/29: Coughing improving, on levaquin # Mild COPD exacerbation- resolved #HARPREET?resolved #Hyponatremia- stable # Leukocytosis- resolved #DVT ppx: Heparin subcu Maida Wheat MD Charges/Coding Visit Charges Inpatient E&M: 72132 Subs Hosp L1
--- NOTE | 2024-04-29 15:26 | CASEMGMT ---
RN CM in to discuss needs at discharge. Patient states he is at his baseline and denies needs at discharge. Will monitor for possible home oxygen. Patient denies further questions or concerns.
[2024-04-30 03:00] VITALS: BP 109/53; PULSE 85; RESP 18; TEMP 37.1; O2SAT 94
[2024-04-30 04:00] VITALS: PULSE 78
[2024-04-30 06:32] LABS: Absolute Lymphocyte Count 0.62 X10^3/uL (0.83-4.51); Basophil# 0.01 X10^3/uL; Basophil% 0.1 % (0-1); Eosinophil# 0.13 X10^3/uL; Eosinophils% 1.6 % (0-5); Hematocrit 37.5 % (40-54); Hemoglobin 12.1 g/dL (13.0-16.5); Lymphocyte # 0.62 X10^3/ul (0.83-4.51); Lymphocyte % 7.6 % (19-41); Mean Corp Hgb Conc 32.3 g/dL (32-36); Mean Corpuscular Volume 86.8 fL (80-94); Mean Platelet Vol. 10.3 fl (6.2-12.0); Monocyte# 0.34 X10^3/uL; Monocyte% 4.2 % (0-10); NRBC Flagged by Analyzer 0 % (0-5); Neutrophil # 6.95 X10^3/uL (2.7-7.7); Neutrophil % 85.4 % (47-70); Platelet Count 201 K/mm3 (150-450); RBC Distribution Width CV 13.8 % (11.6-14.6); RBC Distribution Width SD 43.9 fl (35.1-43.9); Red Blood Count 4.32 M/mm3 (4.6-6.2); White Blood Count 8.1 K/mm3 (4.4-11.0)
--- NOTE | 2024-04-30 06:51 | RAD_ITS ---
INDICATION: chest tube -- portable EXAMINATION/TECHNIQUE: X-RAY - XR Chest 1 View COMPARISON: April 29, 2024 FINDINGS: LINES/DEVICES: There is a right chest tube with tip at the apex LUNGS: No consolidation, edema or effusion. Right basilar atelectasis. No pneumothorax. MEDIASTINUM AND CARDIOVASCULAR STRUCTURES: Cardiac silhouette not enlarged. Central airways and mediastinal contour are unremarkable. BONES AND SOFT TISSUES: Degenerative vertebral changes. Mild right chest wall subcutaneous emphysema. RAD/Chest 1 View (Portable) IMPRESSION: Right basilar atelectasis. No pneumothorax. Electronically Signed: Kevin Avalos DO at 23:43 EDT ,
[2024-04-30 06:54] LABS: Anion Gap 5 (5-15); BUN 20 mg/dL (7-18); BUN/Creat Ratio 15.4 RATIO (10-20); Calcium,Total 8.4 mg/dL (8.5-10.1); Chloride 101 mmol/L (98-107); EST Glomerular Filtration Rate 57 mL/min (>60); Est Glom Filt Rate - Afr Amer 69 mL/min (>60); Estimated Creatinine Clearance 47.36 ml/min; Glucose 96 mg/dL (74-106); Potassium 3.7 mmol/L (3.5-5.1); Sodium Level 133 mmol/L (136-145)
--- NOTE | 2024-04-30 07:35 | PN.SURG_ITS ---
Subjective Subjective Patient seen and evaluated during AM rounds. He reports some discomfort from his chest tube but overall just appears anxious about getting to go home. He specifically denies any shortness of breath and confirms that he is doing his best to avoid kinking of his chest tube and taking appropriate care while it remains in place. He states he is unable to see whether or not any bubbling is occurring and is also unable to hear anything but nursing states they have observed bubbling this morning. Objective Data Objective Data Vital Signs: Vital Signs Temp Pulse Resp BP Pulse Ox O2 Del Method O2 Flow Rate 98.8 F 78 18 109/53 L 94 Room Air 1 04/30/24 03:00 04/30/24 04:00 04/30/24 03:00 04/30/24 03:00 04/30/24 03:00 04/30/24 03:00 04/28/24 11:07 Oxygen Flow Rate (L/min) 1 Oxygen Delivery Method Room Air Weight: 150 lb 5.684 oz Body Mass Index (BMI) 20.9 Intake & Output: Intake and Output for Last 24 Hours 04/28/24 04/29/24 04/30/24 23:59 23:59 23:59 Intake Total 150 / 390 600 / 600 0 / 0 Output Total 1670 / 1970 1380 / 1380 60 / 60 Balance -1520 / -1580 -780 / -780 -60 / -60 Medical Nutrition Assessment Dietitian: Malnutrition Criteria Met Start: 04/24/24 10:26 Freq: Status: Active Protocol: Document 04/24/24 10:26 JORDAN (Rec: 04/24/24 10:26 JORDAN [id number]) Nutrition Malnutrition Evidence of Malnutrition Exists Yes Malnutrition (severe): Acute Illness/Injury Evidenced By Suboptimal Energy Intake ( Severe),Weight Loss (Severe) Clinical Problem Acute Disease or Injury Related Malnutrition Etiology related to inadequate energy intake Signs/Symptoms as evidenced by 5% unintended wt loss and po intake meeting <75% 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 Lab / Micro Data 04/30/24 06:08 04/30/24 06:08 Labs: Laboratory Results - last 24 hr 04/25/24 14:00: Fl Pathologist Comment Reviewed 04/30/24 06:08: WBC 8.1, RBC 4.32 L, Hgb 12.1 L, Hct 37.5 L, MCV 86.8, MCH 28.0, MCHC 32.3, RDW Std Deviation 43.9, RDW Coeff of Wilbert 13.8, Plt Count 201, MPV 10.3, Immature Gran % (Auto) 1.100 H, Neut % (Auto) 85.4 H, Lymph % (Auto) 7.6 L , [place] % (Auto) 4.2, Eos % (Auto) 1.6, Baso % (Auto) 0.1, Absolute Neuts (auto) 7.0, Absolute Lymphs (auto) 0.62 L, Nucleated RBC % 0, Sodium 133 L, Potassium 3.7, Chloride 101, Carbon Dioxide 27.0, Anion Gap 5, BUN 20 H, Creatinine 1.30, Estim Creat Clear Calc 47.36, Est GFR (MDRD) Af Amer 69, Est GFR (MDRD) Non-Af 57 L, BUN/Creatinine Ratio 15.4, Glucose 96, Calcium 8.4 L Micro: Microbiology 04/25/24 14:00 Fluid - Pleural (Lung) Gram Stain - Final 04/25/24 14:00 Fluid - Pleural (Lung) Body Fluid Culture - Final Culture exhibits no growth. 04/25/24 14:00 Fluid - Pleural (Lung) Anaerobic Culture - Final No growth in 5 days. 04/23/24 22:18 Sputum, Expectorated/Coughed Gram Stain - Final 04/23/24 22:18 Sputum, Expectorated/Coughed Respiratory Culture - Final Klebsiella oxytoca 04/23/24 14:21 Mucosa - Nose Respiratory Panel (PCR) - Final Physical Exam Const oriented x3 and no apparent distress Chest Chest Narrative: Right-sided chest tube in place. Initially there is continuous bubbling within the waterseal chamber, however after checking the connection between the Pleur- evac system and the chest tube through tightening there is no further bubbling. Patient's chest tube dressing removed appears intact and there is no crepitus along the chest wall with palpation. There is a moderate amount of serosanguineous drainage in the collection canister but nothing in the tubing. Resp normal respiratory effort Resp Narrative: Patient with a somewhat productive cough Assessment & Plan Assessment/Plan (1) Pneumothorax on right: PLAN: Plan Patient reported to have an air leak this morning and I did see bubbling in the collection canister when I first arrived, however, this appears to have come from a leak in the system at the junction between the chest tube in the Pleur- evac system. I took down the taping over this connection and reapplied white electrical tape which I hope will help buttress this connection. After several observations of no air leak and reexamining patient's chest x-ray this morning which does not show signs of pneumothorax I elected to place the patient under waterseal. Nursing was given instructions to place patient immediately back to suction should patient have any respiratory difficulty and notify me immediately. For now we will plan for waterseal with repeat evaluation in the a.m. following repeat chest x-ray. Andres Friedman MD General Surgery Endocrine Surgery Pager: [facility] [address] [place] [address], [address] [place] [id number] Office: [phone]
[2024-04-30 09:00] VITALS: BP 105/55; PULSE 90; RESP 18; TEMP 36.3; O2SAT 94
[2024-04-30] MEDS: Aspirin E.C. 81 MG Tablet PO (09:46)
[2024-04-30] MEDS: Pravastatin 40 MG Tablet PO (09:47)
[2024-04-30] MEDS: Heparin Injection (Vial) 5,000 UNIT/ML VIAL 5000 UNIT SC ×2 (09:47→21:10)
[2024-04-30] MEDS: levoFLOXacin IV 750 MG in Empty Viaflex Q48 100 MG IV (10:11)
[2024-04-30 15:00] VITALS: BP 104/60; PULSE 97; RESP 18; TEMP 36.5; O2SAT 94
--- NOTE | 2024-04-30 16:16 | PN.HOSP_ITS ---
Reason for Visit Reason for Visit: Diagnoses Hypo-osmolality and hyponatremia (04/23/24) Pleural effusion, not elsewhere classified (04/23/24) Pneumothorax, unspecified (04/23/24) Shortness of breath (04/23/24) Subjective Subjective Having some cough, feeling better overall Objective Data Objective Data Vital Signs: Vital Signs Temp Pulse Resp BP Pulse Ox O2 Del Method O2 Flow Rate 97.7 F L 97 18 104/60 94 Room Air 1 04/30/24 15:00 04/30/24 15:00 04/30/24 15:00 04/30/24 15:00 04/30/24 15:00 04/30/24 15:00 04/28/24 11:07 Oxygen Flow Rate (L/min) 1 Oxygen Delivery Method Room Air Weight: 68.2 kg Body Mass Index (BMI) 20.9 Intake & Output: Intake and Output for Last 24 Hours 04/28/24 04/29/24 04/30/24 23:59 23:59 23:59 Intake Total 150 / 390 600 / 600 390 / 390 Output Total 1670 / 1970 1380 / 1380 360 / 360 Balance -1520 / -1580 -780 / -780 30 / 30 Medical Nutrition Assessment Dietitian: Malnutrition Criteria Met Start: 04/24/24 10:26 Freq: Status: Active Protocol: Document 04/24/24 10:26 JORDAN (Rec: 04/24/24 10:26 JORDAN [id number]) Nutrition Malnutrition Evidence of Malnutrition Exists Yes Malnutrition (severe): Acute Illness/Injury Evidenced By Suboptimal Energy Intake ( Severe),Weight Loss (Severe) Clinical Problem Acute Disease or Injury Related Malnutrition Etiology related to inadequate energy intake Signs/Symptoms as evidenced by 5% unintended wt loss and po intake 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 Lab / Micro Data 04/30/24 06:08 04/30/24 06:08 Labs: Laboratory Results - last 24 hr 04/30/24 06:08: WBC 8.1, RBC 4.32 L, Hgb 12.1 L, Hct 37.5 L, MCV 86.8, MCH 28.0, MCHC 32.3, RDW Std Deviation 43.9, RDW Coeff of Wilbert 13.8, Plt Count 201, MPV 10.3, Immature Gran % (Auto) 1.100 H, Neut % (Auto) 85.4 H, Lymph % (Auto) 7.6 L , [place] % (Auto) 4.2, Eos % (Auto) 1.6, Baso % (Auto) 0.1, Absolute Neuts (auto) 7.0, Absolute Lymphs (auto) 0.62 L, Nucleated RBC % 0, Sodium 133 L, Potassium 3.7, Chloride 101, Carbon Dioxide 27.0, Anion Gap 5, BUN 20 H, Creatinine 1.30, Estim Creat Clear Calc 47.36, Est GFR (MDRD) Af Amer 69, Est GFR (MDRD) Non-Af 57 L, BUN/Creatinine Ratio 15.4, Glucose 96, Calcium 8.4 L Micro: Microbiology 04/25/24 14:00 Fluid - Pleural (Lung) Gram Stain - Final 04/25/24 14:00 Fluid - Pleural (Lung) Body Fluid Culture - Final Culture exhibits no growth. 04/25/24 14:00 Fluid - Pleural (Lung) Anaerobic Culture - Final No growth in 5 days. 04/23/24 22:18 Sputum, Expectorated/Coughed Gram Stain - Final 04/23/24 22:18 Sputum, Expectorated/Coughed Respiratory Culture - Final Klebsiella oxytoca 04/23/24 14:21 Mucosa - Nose Respiratory Panel (PCR) - Final Physical Exam Narrative General: Alert, oriented, no apparent distress HEENT: Atraumatic, normocephalic Eyes: Anicteric, normal conjunctiva, extraocular movements grossly intact Neck: Supple Respiratory: Improved aeration Cardiovascular: Regular rate and rhythm GI: Soft, nontender, nondistended Extremities: No edema Musculoskeletal: Moving all extremities Neuro: No overt focal neurological deficits Skin: No rashes appreciated Psych: Cooperative Assessment & Plan Assessment/Plan (1) Pleural effusion on right: (2) SOB (shortness of breath): (3) Hyponatremia: PLAN: Plan #Pneumothorax -10% pneumothorax on the right after thoracentesis, patient presently stable -2 to 3 L O2 satting low 90s -Chest x-ray if any clinical change if not chest x-ray in a.m. and low threshold for pulmonary involvement -04/26: Patient has some residual pneumothorax, will repeat in a.m., if not improved will need to consult for likely chest tube placement, continue O2, patient presently stable -04/27: Patient still dyspneic with limitations and chest x-ray with persistent pneumothorax, discussed with surgery and CT obtained, ultimately chest tube placed with reexpansion of lung, pulmonology also consulted and evaluated -04/28: Patient feeling better after chest tube placement however airleak still present, will be reevaluated in the a.m., possibility patient will need transferred if this is not resolving -04/29: No air leak, CT to suction today, surgery to f/u in AM, on RA at this point -04/30: Waterseal today, repeat imaging tomorrow, possible DC of chest tube tomorrow pending x-ray and clinical status #Sinus tachycardia -Suspect pt with poor reserve, deconditioning, albuterol nebs, and pain contributing -Appears sinus -Pt on tele -No further workup at this time, had echo several days ago which was unremarkable -04/30: Somewhat improved today, suspect due to pain, anxiety, poor reserve #Large right sided pleural effusion?parapneumonic effusion -Seen on chest CT on presentation -Patient status post thoracentesis with 1800 cc of fluid drained -Awaiting fluid studies -X-ray performed after showed 10% right pneumothorax and findings suggestive of trapped lung at right base -Patient on 2 L O2 postthoracentesis and stable sats in low 90s -Echo ordered w/ EF 70% and no diastolic dysfunction noted -04/26: Patient grew Klebsiella in his sputum, he had been on antibiotics for several days prior to thoracentesis so given that in conjunction with symptoms leading up to admission and positive sputum culture seems this is likely most consistent with parapneumonic effusion. Will place patient on Levaquin and will need repeat imaging in 6 to 8 weeks and information for pulm follow-up -04/27: Remains on IV antibiotics, pulm evaluated today and agreed with present plan -04/28: Continue antibiotics -04/29: Coughing improving, on levaquin -04/30: Levaquin every 48 due to creatinine clearance # Mild COPD exacerbation- resolved #HARPREET?resolved #Hyponatremia- stable # Leukocytosis- resolved #DVT ppx: Heparin subcu Maida Wheat MD Charges/Coding Visit Charges Inpatient E&M: 10394 Subs Hosp L1
[2024-04-30 21:09] VITALS: BP 121/57; PULSE 90; RESP 18; TEMP 36.9; O2SAT 94
[2024-04-30] MEDS: MELATONIN 3 MG TABLET PO (21:10)
[2024-05-01 03:10] VITALS: BP 99/59; PULSE 81; RESP 18; TEMP 36.7; O2SAT 95
[2024-05-01 05:49] LABS: Absolute Lymphocyte Count 0.59 X10^3/uL (0.83-4.51); Absolute Neutrophil Count 5.4 X10^3/uL (2.0-7.7); Basophil# 0.02 X10^3/uL; Basophil% 0.3 % (0-1); Eosinophil# 0.11 X10^3/uL; Eosinophils% 1.7 % (0-5); Hematocrit 37.4 % (40-54); Hemoglobin 12.2 g/dL (13.0-16.5); Lymphocyte # 0.59 X10^3/ul (0.83-4.51); Lymphocyte % 9.1 % (19-41); Mean Corp Hgb Conc 32.6 g/dL (32-36); Mean Corpuscular Hgb 27.9 pg (27.0-32.0); Mean Corpuscular Volume 85.4 fL (80-94); Mean Platelet Vol. 10.1 fl (6.2-12.0); Monocyte# 0.32 X10^3/uL; Monocyte% 4.9 % (0-10); NRBC Flagged by Analyzer 0 % (0-5); Neutrophil # 5.39 X10^3/uL (2.7-7.7); Neutrophil % 82.9 % (47-70); POSITIVE DIFFERENTIAL YES; Platelet Count 207 K/mm3 (150-450); RBC Distribution Width CV 13.7 % (11.6-14.6); RBC Distribution Width SD 42.8 fl (35.1-43.9); Red Blood Count 4.38 M/mm3 (4.6-6.2); White Blood Count 6.5 K/mm3 (4.4-11.0)
--- NOTE | 2024-05-01 06:12 | RAD_ITS ---
INDICATION: chest tube -- portable EXAMINATION/TECHNIQUE: X-RAY - XR Chest 1 View COMPARISON: Prior study dated: 04/30/2024 FINDINGS: LINES/DEVICES: Right-sided chest tube in stable position. LUNGS: Right basilar atelectasis is again seen. No evidence of pneumothorax. Blunting of the right costophrenic angle. The lungs remain hyperinflated. MEDIASTINUM AND CARDIOVASCULAR STRUCTURES: Cardiac silhouette not enlarged. Central airways and mediastinal contour are unremarkable. BONES AND SOFT TISSUES: Stable soft tissues and osseous structures. RAD/Chest 1 View (Portable) IMPRESSION: No significant change. Electronically Signed: Rodolfo Lerma MD at 11:15 EDT ,
[2024-05-01 06:14] LABS: Anion Gap 6 (5-15); BUN 17 mg/dL (7-18); BUN/Creat Ratio 16.7 RATIO (10-20); Calcium,Total 8.4 mg/dL (8.5-10.1); Chloride 101 mmol/L (98-107); Creatinine, Serum 1.02 mg/dL (0.70-1.30); EST Glomerular Filtration Rate 76 mL/min (>60); Est Glom Filt Rate - Afr Amer 91 mL/min (>60); Estimated Creatinine Clearance 60.36 ml/min; Glucose 100 mg/dL (74-106); Sodium Level 130 mmol/L (136-145)
--- NOTE | 2024-05-01 08:12 | PN.SURG_ITS ---
Subjective Subjective Patient seen and examined during AM rounds. He remained clinically stable over yesterday. Denies any shortness of breath. Objective Data Objective Data Vital Signs: Vital Signs Temp Pulse Resp BP Pulse Ox O2 Del Method O2 Flow Rate 98.1 F 81 18 99/59 L 95 Room Air 1 05/01/24 03:10 05/01/24 03:10 05/01/24 03:10 05/01/24 03:10 05/01/24 03:10 05/01/24 07:19 04/28/24 11:07 Oxygen Flow Rate (L/min) 1 Oxygen Delivery Method Room Air Weight: 150 lb 5.684 oz Body Mass Index (BMI) 20.9 Intake & Output: Intake and Output for Last 24 Hours 04/29/24 04/30/24 05/01/24 23:59 23:59 23:59 Intake Total 600 / 600 750 / 990 360 / 360 Output Total 1380 / 1380 440 / 790 650 / 650 Balance -780 / -780 310 / 200 -290 / -290 Medical Nutrition Assessment Dietitian: Malnutrition Criteria Met Start: 04/24/24 10:26 Freq: Status: Active Protocol: Document 04/24/24 10:26 JORDAN (Rec: 04/24/24 10:26 [facility] [id number]) Nutrition Malnutrition Evidence of Malnutrition Exists Yes Malnutrition (severe): Acute Illness/Injury Evidenced By Suboptimal Energy Intake ( Severe),Weight Loss (Severe) Clinical Problem Acute Disease or Injury Related Malnutrition Etiology related to inadequate energy intake Signs/Symptoms as evidenced by 5% unintended wt loss and po intake 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 Lab / Micro Data 05/01/24 05:36 05/01/24 05:36 Labs: Laboratory Results - last 24 hr 05/01/24 05:36: WBC 6.5, RBC 4.38 L, Hgb 12.2 L, Hct 37.4 L, MCV 85.4, MCH 27.9, MCHC 32.6, RDW Std Deviation 42.8, RDW Coeff of Wilbert 13.7, Plt Count 207, MPV 10.1, Immature Gran % (Auto) 1.100 H, Neut % (Auto) 82.9 H, Lymph % (Auto) 9.1 L , [place] % (Auto) 4.9, Eos % (Auto) 1.7, Baso % (Auto) 0.3, Absolute Neuts (auto) 5.4, Absolute Lymphs (auto) 0.59 L, Nucleated RBC % 0, Sodium 130 L, Potassium 4.0, Chloride 101, Carbon Dioxide 23.0, Anion Gap 6, BUN 17, Creatinine 1.02, Estim Creat Clear Calc 60.36, Est GFR (MDRD) Af Amer 91, Est GFR (MDRD) Non-Af 76, BUN/Creatinine Ratio 16.7, Glucose 100, Calcium 8.4 L Micro: Microbiology 04/25/24 14:00 Fluid - Pleural (Lung) Gram Stain - Final 04/25/24 14:00 Fluid - Pleural (Lung) Body Fluid Culture - Final Culture exhibits no growth. 04/25/24 14:00 Fluid - Pleural (Lung) Anaerobic Culture - Final No growth in 5 days. 04/23/24 22:18 Sputum, Expectorated/Coughed Gram Stain - Final 04/23/24 22:18 Sputum, Expectorated/Coughed Respiratory Culture - Final Klebsiella oxytoca 04/23/24 14:21 Mucosa - Nose Respiratory Panel (PCR) - Final Radiography Diagnostic Testing: Radiology Impression Chest X-Ray 04/30/24 06:51 IMPRESSION: Right basilar atelectasis. No pneumothorax. Electronically Signed: Kevin Avalos DO at 23:43 EDT Reading Location ID and State: [address] [place] [address] Tel [phone], Service support , Physical Exam Const oriented x3 and no apparent distress Chest Chest Narrative: Right-sided chest tube in place. There is no apparent leak and patient's waterseal chamber even with provocative maneuvers such as asking patient to cough. Patient's chest tube dressing appears intact and there is no crepitus along the chest wall with palpation. Once again, there is a moderate amount of serosanguineous drainage in the collection canister but nothing in the tubing. Resp normal respiratory effort Resp Narrative: Patient with a somewhat productive cough Assessment & Plan Assessment/Plan (1) Pneumothorax on right: PLAN: Plan Patient with no signs of air leak upon my examination today and yesterday's chest x-ray was finally read as no evidence of pneumothorax. Given his stability on waterseal I shared with him that it is now time to remove his chest tube. This was completed at bedside and a Vaseline gauze dressing was placed over top of the site as the chest tube was removed and the closure suture was tied down. Overall patient tolerated this without difficulty. Patient may shower with this dressing in place but try to avoid merari exposure to water or getting the dressing wet beneath. Awaiting a post pull chest x-ray in 6 hours. If this is stable and reassuring patient could be considered for discharge to home provided he is medically cleared by primary team. Would ask that his chest tube dressing remains intact for full 72 hours following chest tube pull. At some point he will require removal of suture from chest tube site (estimated at least 1 week). As we await follow-up chest x-ray I have asked nursing to identify location of a new Pleur-evac and chest tube as a precautionary measure. Andres Friedman MD General Surgery Endocrine Surgery Pager: [facility] [address] [place] [address], [facility], [address] [place] [address] Office: [phone] Charges/Coding Visit Charges Inpatient E&M: 15899 [facility] Hosp L2
[2024-05-01 09:00] VITALS: BP 112/53; PULSE 86; RESP 18; TEMP 36.5; O2SAT 92
[2024-05-01] MEDS: Aspirin E.C. 81 MG Tablet PO (09:14)
[2024-05-01] MEDS: Pravastatin 40 MG Tablet PO (09:14)
[2024-05-01] MEDS: Heparin Injection (Vial) 5,000 UNIT/ML VIAL 5000 UNIT SC ×2 (09:14→21:02)
[2024-05-01 15:00] VITALS: BP 111/66; PULSE 82; RESP 18; TEMP 36.4; O2SAT 96
--- NOTE | 2024-05-01 15:40 | RAD_ITS ---
STUDY: XR Chest 2 Views 05/01/2024 3:42 PM REASON FOR EXAM: Male, 73 years old. s/p chest tube pull COMPARISON: 05.01.24 TECHNIQUE: XR Chest 2 Views FINDINGS: There is a right pleural effusion. The lung mcrae are hyperexpanded. There is a small right apical pneumothorax. This is less than 5% in size. Removal of right chest tube. Normal heart size. Normal mediastinum. Normal bart. Prominent appearing increased interstitial lung markings. Normal visualized pulmonary arteries. There is atherosclerotic calcification of the aortic arch with tortuosity. There are diffuse degenerative changes of the visualized thoracic spine. There is degenerative osteoarthritis of the bilateral shoulders. There are no acute findings of the upper abdomen. RAD/Chest PA and Lateral IMPRESSION: Small right apical pneumothorax which is less than 5% in size. Electronically Signed: Eagle Santana MD at 16:48 EDT ,
[2024-05-01 16:04] VITALS: O2SAT 93; O2SAT 94
[2024-05-01] MEDS: Calcium Carbonate 500 MG Tablet 1000 MG PO (16:11)
--- NOTE | 2024-05-01 16:22 | PN.HOSP_ITS ---
Reason for Visit Reason for Visit: Diagnoses Hypo-osmolality and hyponatremia (04/23/24) Pleural effusion, not elsewhere classified (04/23/24) Pneumothorax, unspecified (04/23/24) Shortness of breath (04/23/24) Subjective Subjective Patient feeling fair after chest tube pulled, feeling much better overall, no acute complaints Objective Data Objective Data Vital Signs: Vital Signs Temp Pulse Resp BP Pulse Ox O2 Del Method O2 Flow Rate 97.7 F L 86 18 112/53 L 94 Room Air 0 05/01/24 09:00 05/01/24 09:00 05/01/24 09:00 05/01/24 09:00 05/01/24 16:04 05/01/24 15:27 05/01/24 16:04 Oxygen Flow Rate (L/min) [ 0 AMBULATING on Room Air] Oxygen Flow Rate (L/min) [At 0 REST on Room Air] Oxygen Flow Rate (L/min) 1 Oxygen Delivery Method Room Air Weight: 68.2 kg Body Mass Index (BMI) 20.9 Intake & Output: Intake and Output for Last 24 Hours 04/29/24 04/30/24 05/01/24 23:59 23:59 23:59 Intake Total 600 / 600 750 / 990 720 / 720 Output Total 1380 / 1380 440 / 790 650 / 650 Balance -780 / -780 310 / 200 70 / 70 Medical Nutrition Assessment Dietitian: Malnutrition Criteria Met Start: 04/24/24 10:26 Freq: Status: Active Protocol: Document 04/24/24 10:26 JORDAN (Rec: 04/24/24 10:26 JORDAN [id number]) Nutrition Malnutrition Evidence of Malnutrition Exists Yes Malnutrition (severe): Acute Illness/Injury Evidenced By Suboptimal Energy Intake ( Severe),Weight Loss (Severe) Clinical Problem Acute Disease or Injury Related Malnutrition Etiology related to inadequate energy intake Signs/Symptoms as evidenced by 5% unintended wt loss and po intake meeting <75% 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 Lab / Micro Data 05/01/24 05:36 05/01/24 05:36 Labs: Laboratory Results - last 24 hr 05/01/24 05:36: WBC 6.5, RBC 4.38 L, Hgb 12.2 L, Hct 37.4 L, MCV 85.4, MCH 27.9, MCHC 32.6, RDW Std Deviation 42.8, RDW Coeff of Wilbert 13.7, Plt Count 207, MPV 10.1, Immature Gran % (Auto) 1.100 H, Neut % (Auto) 82.9 H, Lymph % (Auto) 9.1 L , [place] % (Auto) 4.9, Eos % (Auto) 1.7, Baso % (Auto) 0.3, Absolute Neuts (auto) 5.4, Absolute Lymphs (auto) 0.59 L, Nucleated RBC % 0, Sodium 130 L, Potassium 4.0, Chloride 101, Carbon Dioxide 23.0, Anion Gap 6, BUN 17, Creatinine 1.02, Estim Creat Clear Calc 60.36, Est GFR (MDRD) Af Amer 91, Est GFR (MDRD) Non-Af 76, BUN/Creatinine Ratio 16.7, Glucose 100, Calcium 8.4 L Micro: Microbiology 04/25/24 14:00 Fluid - Pleural (Lung) Gram Stain - Final 04/25/24 14:00 Fluid - Pleural (Lung) Body Fluid Culture - Final Culture exhibits no growth. 04/25/24 14:00 Fluid - Pleural (Lung) Anaerobic Culture - Final No growth in 5 days. 04/23/24 22:18 Sputum, Expectorated/Coughed Gram Stain - Final 04/23/24 22:18 Sputum, Expectorated/Coughed Respiratory Culture - Final Klebsiella oxytoca 04/23/24 14:21 Mucosa - Nose Respiratory Panel (PCR) - Final Radiography Diagnostic Testing: Radiology Impression Chest X-Ray 04/30/24 06:51 IMPRESSION: Right basilar atelectasis. No pneumothorax. Electronically Signed: Kevin Avalos DO at 23:43 EDT , Chest X-Ray 05/01/24 06:12 IMPRESSION: No significant change. Electronically Signed: Rodolfo Lerma MD at 11:15 EDT , Physical Exam Narrative General: Alert, oriented, no apparent distress HEENT: Atraumatic, normocephalic Eyes: Anicteric, normal conjunctiva, extraocular movements grossly intact Neck: Supple Respiratory: Improved aeration Cardiovascular: Regular rate and rhythm GI: Soft, nontender, nondistended Extremities: No edema Musculoskeletal: Moving all extremities Neuro: No overt focal neurological deficits Skin: No rashes appreciated Psych: Cooperative Assessment & Plan Assessment/Plan (1) Pleural effusion on right: (2) SOB (shortness of breath): (3) Hyponatremia: PLAN: Plan #Pneumothorax -10% pneumothorax on the right after thoracentesis, patient presently stable -2 to 3 L O2 satting low 90s -Chest x-ray if any clinical change if not chest x-ray in a.m. and low threshold for pulmonary involvement -04/26: Patient has some residual pneumothorax, will repeat in a.m., if not improved will need to consult for likely chest tube placement, continue O2, patient presently stable -04/27: Patient still dyspneic with limitations and chest x-ray with persistent pneumothorax, discussed with surgery and CT obtained, ultimately chest tube placed with reexpansion of lung, pulmonology also consulted and evaluated -04/28: Patient feeling better after chest tube placement however airleak still present, will be reevaluated in the a.m., possibility patient will need transferred if this is not resolving -04/29: No air leak, CT to suction today, surgery to f/u in AM, on RA at this point -04/30: Waterseal today, repeat imaging tomorrow, possible DC of chest tube tomorrow pending x-ray and clinical status -05/01: Chest tube pulled, awaiting repeat film to assess for any reaccumulation prior to deciding on discharge #Sinus tachycardia -Suspect pt with poor reserve, deconditioning, albuterol nebs, and pain contributing -Appears sinus -Pt on tele -No further workup at this time, had echo several days ago which was unremarkable -04/30: Somewhat improved today, suspect due to pain, anxiety, poor reserve -05/01: Improved #Large right sided pleural effusion?parapneumonic effusion -Seen on chest CT on presentation -Patient status post thoracentesis with 1800 cc of fluid drained -Awaiting fluid studies -X-ray performed after showed 10% right pneumothorax and findings suggestive of trapped lung at right base -Patient on 2 L O2 postthoracentesis and stable sats in low 90s -Echo ordered w/ EF 70% and no diastolic dysfunction noted -04/26: Patient grew Klebsiella in his sputum, he had been on antibiotics for several days prior to thoracentesis so given that in conjunction with symptoms leading up to admission and positive sputum culture seems this is likely most consistent with parapneumonic effusion. Will place patient on Levaquin and will need repeat imaging in 6 to 8 weeks and information for pulm follow-up -04/27: Remains on IV antibiotics, pulm evaluated today and agreed with present plan -04/28: Continue antibiotics -04/29: Coughing improving, on levaquin -04/30: Levaquin every 48 due to creatinine clearance -05/01: Creatinine clearance improved, needs 4 more days of Levaquin, will also need to follow-up with PCP and pulm on discharge. Chest x-ray little bit of fluid that is reaccumulated but patient saturating well and vitally stable and does not need O2 on ambulation, feel it is reasonable to follow-up with PCP to have repeat films in 5 to 7 days and follow-up with pulmonology # Mild COPD exacerbation- resolved #HARPREET?resolved #Hyponatremia- stable # Leukocytosis- resolved #DVT ppx: Heparin subcu Maida Wheat MD Time spent in the patient's overall evaluation,decision-making process, review of diagnostic data, adjustment of management, discussion with other providers, nursing nursing and ancillary staff involved in patient's care documentation, 37 minutes Charges/Coding Visit Charges Inpatient E&M: 74845 Subs Hosp L2
[2024-05-01 21:00] VITALS: BP 106/64; PULSE 83; RESP 18; TEMP 36.9; O2SAT 96
[2024-05-01] MEDS: traZODone 50 MG Tablet PO (21:02)
[2024-05-02 03:00] VITALS: BP 127/68; PULSE 88; RESP 18; TEMP 36.7; O2SAT 95
[2024-05-02 05:52] LABS: Absolute Lymphocyte Count 0.79 X10^3/uL (0.83-4.51); Absolute Neutrophil Count 4.5 X10^3/uL (2.0-7.7); Basophil# 0.01 X10^3/uL; Basophil% 0.2 % (0-1); Eosinophil# 0.14 X10^3/uL; Eosinophils% 2.4 % (0-5); Hematocrit 39.6 % (40-54); Lymphocyte # 0.79 X10^3/ul (0.83-4.51); Lymphocyte % 13.7 % (19-41); Mean Corp Hgb Conc 32.8 g/dL (32-36); Mean Corpuscular Hgb 28.3 pg (27.0-32.0); Mean Corpuscular Volume 86.3 fL (80-94); Monocyte# 0.27 X10^3/uL; Monocyte% 4.7 % (0-10); NRBC Flagged by Analyzer 0 % (0-5); Neutrophil # 4.46 X10^3/uL (2.7-7.7); Neutrophil % 77.6 % (47-70); Platelet Count 280 K/mm3 (150-450); RBC Distribution Width CV 13.6 % (11.6-14.6); RBC Distribution Width SD 42.2 fl (35.1-43.9); Red Blood Count 4.59 M/mm3 (4.6-6.2); White Blood Count 5.8 K/mm3 (4.4-11.0)
--- NOTE | 2024-05-02 05:55 | RAD_ITS ---
EXAM: XR CHEST, 1 VIEW CLINICAL INDICATION: pneumo stability? TECHNIQUE: Frontal view of the chest. COMPARISON: Single view chest 05/01/2024 FINDINGS: LUNGS AND PLEURAL SPACES: No residual pneumothorax appreciated on this portable exam. Small right pleural effusion and right nasal or airspace disease. HEART: Unremarkable. Cardiac silhouette not enlarged. MEDIASTINUM: Central airways and mediastinal contour are unremarkable. BONES/JOINTS: Unremarkable. No acute fracture. SOFT TISSUES: Unremarkable. RAD/Chest 1 View (Portable) IMPRESSION: 1. No residual pneumothorax appreciated on this portable exam. Follow-up with additional imaging if clinically indicated. 2. Small right pleural effusion and right nasal or airspace disease. Electronically Signed: Eagle Saravia MD at 6:34 EDT ,
[2024-05-02 06:32] LABS: Anion Gap 6 (5-15); BUN 14 mg/dL (7-18); BUN/Creat Ratio 12.5 RATIO (10-20); Calcium,Total 8.8 mg/dL (8.5-10.1); Chloride 100 mmol/L (98-107); Creatinine, Serum 1.12 mg/dL (0.70-1.30); EST Glomerular Filtration Rate 68 mL/min (>60); Est Glom Filt Rate - Afr Amer 82 mL/min (>60); Estimated Creatinine Clearance 54.97 ml/min; Glucose 91 mg/dL (74-106); Potassium 4.1 mmol/L (3.5-5.1); Sodium Level 131 mmol/L (136-145)
--- NOTE | 2024-05-02 08:17 | DS.PCM_ITS ---
Providers Date of Admission: 04/23/24 Date of Discharge: 05/02/24 Primary Care Physician: Dr. Brent Martinez, DO Consultations 04/27/24 10:51 Consult: Lug Loader / Pulmonary Medicine Routine Consulting Provider: Intensivists/Pulmonary Med Reason for Consult: ?trapped lung vs pneumo, management recs EMERGENT Consult: No MD Notified: Yes Date Notified: 04/27/24 Time Notified: 10:56 Method of Notification: internet Reason For Visit: SHORTNESS OF BREATH Diagnosis Discharge Diagnosis (1) Pleural effusion on right: Status: Acute Code(s): J90 - Pleural effusion, not elsewhere classified (2) SOB (shortness of breath): Status: Acute Code(s): R06.02 - Shortness of breath (3) Hyponatremia: Status: Acute Code(s): E87.1 - Hypo-osmolality and hyponatremia Plan Patient is a 73-year-old gentleman presented with progressive shortness of breath found to have significant right-sided pleural effusion and hyponatremia admitted to a monitored bed for further management 1. Acute dyspnea ? Secondary to right-sided pleural effusion suspected congestive heart failure and emphysema. Patient has been admitted to a monitored bed with treatment of the underlying etiology. Patient placed on supplemental oxygen titrated to keep oxygen saturation greater than 90 2. Right-sided pleural effusion ? Parapneumonic versus congestive heart failure. Patient started on diuretic therapy, placed on fluid restriction, strict input output, daily weight ordered BMP and a 2D echo. If patient right-sided pleural effusion does not respond to diuretic therapy patient may need to undergo ultrasound-guided thoracocentesis for further evaluation to rule out other possible etiology including malignancy 3. COPD with acute exacerbation - Patient started on bronchodilator treatment, systemic steroid as well as antibiotic therapy. Patient placed on oxygen titrated to keep saturation greater than 90. 4. Hyponatremia ? Fluid overload status versus SIADH. Ordered urine sodium serum and urine osmole. Patient currently on diuretic therapy repeat labs ordered for a.m. 5. Renal failure ? Baseline creatinine unknown.?? Vascular congestion from congestive heart failure. Patient being managed with diuretic therapy as discussed above ordered renal ultrasound 6. Dyslipidemia -Patient is on statin therapy, continued at home dose 7. Hypertension - Blood pressure controlled, home medications continued with dose adjustment as needed 8. DVT prophylaxis -SC heparin Advance planning; did discuss with the patientregarding advanced directives as well as CODE STATUS. Did explain the various scenarios involved ( FULL CODE, DNR CCA, DNR CCA with no intubation, and DNR CC and what each meant) patient elected to remain full code with CPR and intubation if needed. Order was placed. Time spent on discussion 16 minutes. Medications at Discharge Home Medications pravastatin 40 mg tablet 40 mg PO DAILY high cholesterol 01/16/18 aspirin 81 mg tablet,delayed release (Adult Low Dose Aspirin) 81 mg PO DAILY heart health 08/17/18 acetaminophen 325 mg tablet 650 mg (2 x 325 mg) PO Q6H PRN PRN Pain 1-10 Or Fever>100.7 #0 tabs 05/02/24 levofloxacin 750 mg tablet 750 mg PO DAILY@1000 #5 tabs 05/02/24 Hospital Course Summary of Care Provided Minutes Spent on Discharge: 32 Hospital Course: Patient is a 73-year-old gentleman presented with progressive shortness of breath found to have significant right-sided pleural effusion and hyponatremia admitted to a monitored bed for further management 1. Acute dyspnea ? Secondary to right-sided pleural effusion suspected congestive heart failure and emphysema. Patient has been admitted to a monitored bed with treatment of the underlying etiology. Patient placed on supplemental oxygen titrated to keep oxygen saturation greater than 90 2. Right-sided pleural effusion ? Parapneumonic versus congestive heart failure. Patient started on diuretic therapy, placed on fluid restriction, strict input output, daily weight ordered BMP and a 2D echo. If patient right-sided pleural effusion does not respond to diuretic therapy patient may need to undergo ultrasound-guided thoracocentesis for further evaluation to rule out other possible etiology including malignancy -Patient subsequently underwent thoracocentesis with 1800 cc of pleuritic fluid drained. Cultures grew Klebsiella. Patient right-sided pleural effusion was therefore secondary to parapneumonic 3. Iatrogenic pneumothorax ? Following patient paracentesis. Surgery was consulted patient underwent chest tube placement 4. COPD with acute exacerbation - Patient started on bronchodilator treatment, systemic steroid as well as antibiotic therapy. Patient placed on oxygen titrated to keep saturation greater than 90. 5. Hyponatremia ? Fluid overload status versus SIADH. Ordered urine sodium serum and urine osmole. Patient currently on diuretic therapy repeat labs ordered for a.m. ? Sodium level at the time of discharge 113 6. Acute kidney injury ? Patient creatinine peaked at 1.63 discharge creatinine 1.02 7. Dyslipidemia -Patient is on statin therapy, continued at home dose 8. Hypertension - Blood pressure controlled, home medications continued with dose adjustment as needed 9. DVT prophylaxis -SC heparin Physical Exam Narrative GENERAL: cooperative HEENT: Atraumatic; normocephalic EYES; Anicteric, Normal Conjunctiva NECK; supple, normal thyroid, RESPIRATORY: Diminished to auscultation CARDIOVASCULAR: Regular S1 S2, GI: soft, normoactive bowel sounds, : No Renal angle tenderness; EXTREMITIES: No edema, no clubbing, MUSCULOSKELETAL: no muscle wasting NEURO: Awake; no lateralizing signs. SKIN: No Rash PSYCH; Flat affect Medical Records Data Medical Nutrition Assessment Dietitian: Malnutrition Criteria Met Start: 04/24/24 10:26 Freq: Status: Active Protocol: Document 04/24/24 10:26 [facility] (Rec: 04/24/24 10:26 [facility] [id number]) Nutrition Malnutrition Evidence of Malnutrition Exists Yes Malnutrition (severe): Acute Illness/Injury Evidenced By Suboptimal Energy Intake ( Severe),Weight Loss (Severe) Clinical Problem Acute Disease or Injury Related Malnutrition Etiology related to inadequate energy intake Signs/Symptoms as evidenced by 5% unintended wt loss and po intake 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 Weight / BMI Weight Weight: 68.2 kg Body Mass Index (BMI) 20.9 ABG / Lab / Microbiology Data 05/02/24 05:34 05/02/24 05:34 Laboratory: Laboratory Results - last 24 hr 05/02/24 05:34: WBC 5.8, RBC 4.59 L, Hgb 13.0, Hct 39.6 L, MCV 86.3, MCH 28.3, MCHC 32.8, RDW Std Deviation 42.2, RDW Coeff of Wilbert 13.6, Plt Count 280, MPV 10.0, Immature Gran % (Auto) 1.400 H, Neut % (Auto) 77.6 H, Lymph % (Auto) 13.7 L, Sal[place] % (Auto) 4.7, Eos % (Auto) 2.4, Baso % (Auto) 0.2, Absolute Neuts (auto) 4.5, Absolute Lymphs (auto) 0.79 L, Nucleated RBC % 0, Sodium 131 L, Potassium 4.1, Chloride 100, Carbon Dioxide 25.0, Anion Gap 6, BUN 14, Creatinine 1.12, Estim Creat Clear Calc 54.97, Est GFR (MDRD) Af Amer 82, Est GFR (MDRD) Non-Af 68, BUN/Creatinine Ratio 12.5, Glucose 91, Calcium 8.8 Microbiology: Microbiology 04/25/24 14:00 Fluid - Pleural (Lung) Gram Stain - Final 04/25/24 14:00 Fluid - Pleural (Lung) Body Fluid Culture - Final Culture exhibits no growth. 04/25/24 14:00 Fluid - Pleural (Lung) Anaerobic Culture - Final No growth in 5 days. 04/23/24 22:18 Sputum, Expectorated/Coughed Gram Stain - Final 04/23/24 22:18 Sputum, Expectorated/Coughed Respiratory Culture - Final Klebsiella oxytoca 04/23/24 14:21 Mucosa - Nose Respiratory Panel (PCR) - Final Radiography Diagnostic Testing: Radiology Impression Chest X-Ray 05/01/24 06:12 IMPRESSION: No significant change. Electronically Signed: Rodolfo Lerma MD at 11:15 EDT , Chest X-Ray 05/01/24 15:40 IMPRESSION: Small right apical pneumothorax which is less than 5% in size. Electronically Signed: Eagle Santana MD at 16:48 EDT , Chest X-Ray 05/02/24 05:55 IMPRESSION: 1. No residual pneumothorax appreciated on this portable exam. Follow-up with additional imaging if clinically indicated. 2. Small right pleural effusion and right nasal or airspace disease. Electronically Signed: Eagle Saravia MD at 6:34 EDT , D/C Instructions Discharge Diet: No restrictions Discharge Activity: Return to Normal Activity Call your doctor if you observe: Fever of 101 or Higher, Shortness of breath, Fainting spells and Chest pain Meaningful Use Info Meaningful Use Meaningful Use Diagnoses (Choose all that apply): None applicable Ischemic Stroke Statin Dosing Therapy Reference: STATIN DOSE THERAPY REFERENCE: * Patients > 75 years receive moderate or high dose statin therapy. * Patients 75 years or YOUNGER should receive HIGH intensity statin dose unless contraindicated. You will be required to document reason for non-treatment if statin daily dose does not meet guidelines. HIGH DOSE STATIN THERAPY DAILY Atorvastatin > than or = to 40 mg Rosuvastatin > than or = to 20 mg Amlodipine + Atorvastatin > than or = to 2.5/40 mg Ezetimibe + Simvastatin 10/80 mg Simvastatin 80mg Discharge Plan Admission Admit Date/Time: 04/23/24 14:14 Attending Provider: Raúl Lam Primary Care Provider: Brent Martinez Consulting Providers: Raúl Lam; Sorin Guillory; Maida Wheat Instructions Patient Instructions: [facility] RN Thoracentesis Dc Additional Instructions / Restrictions: DISCHARGE INSTRUCTIONS PLEASE READ *Please take this with you to your next doctors appointment* - You will be discharged with an additional 4 days of antibiotics, Levaquin, with first dose tomorrow -Please follow-up with pulmonology upon discharge, contact information below -You will need repeat chest x-ray in 5 to 7 days, please contact your primary care physician's office to coordinate this -You will need the sutures removed from your chest tube site, this needs to be in place for at least 1 week -Do not soak dressing in [address] for 72 hours -Due to well-controlled blood pressure lisinopril has been discontinued -Please call your primary care provider's office upon discharge to schedule a hospital follow up within 1 week. -For any concerning signs or symptoms please call 911 or proceed to the nearest emergency department Discharge Orders/Prescriptions Prescriptions: New acetaminophen 325 mg Tablet 650 mg PO Q6H PRN PRN (Reason: Pain 1-10 Or Fever>100.7) Qty: 0 0RF levofloxacin 750 mg Tablet 750 mg PO DAILY@1000 Qty: 5 0RF Continued aspirin [Adult Low Dose Aspirin] 81 mg tablet,delayed release (DR/EC) 81 mg PO DAILY pravastatin 40 MG tablet 40 mg PO DAILY Patient Comments: TAKE 1 TABLET EVERY DAY Discontinued lisinopril 5 mg tablet 2.5 mg PO DAILY Referrals / Follow Up: Brent Martinez DO [Primary Care Provider] - Within 1 Week Noé Loving DO [Med Staff - Active Staff] - Within 1 Month Andres Friedman MD [Med Staff - Active Staff] - Within 1 Week (For staple removal) Disposition Disposition (needs filled in before D/C Order can be placed): Home, Self Care Charges/Coding Visit Charges Inpatient E&M: 26811 Disch Hosp >30min
[2024-05-02 09:00] VITALS: BP 114/54; PULSE 94; RESP 18; TEMP 36.6; O2SAT 98
--- NOTE | 2024-05-02 09:01 | PN.SURG_ITS ---
Subjective Subjective Patient seen and examined during AM rounds. Is remained clinically stable overnight. He denies any shortness of breath. He states that he is getting antsy Objective Data Objective Data Vital Signs: Vital Signs Temp Pulse Resp BP Pulse Ox O2 Del Method O2 Flow Rate 98.0 F 88 18 127/68 H 95 Room Air 0 05/02/24 03:00 05/02/24 03:00 05/02/24 03:00 05/02/24 03:00 05/02/24 03:00 05/02/24 07:48 05/01/24 16:04 Oxygen Flow Rate (L/min) [ 0 AMBULATING on Room Air] Oxygen Flow Rate (L/min) [At 0 REST on Room Air] Oxygen Flow Rate (L/min) 1 Oxygen Delivery Method Room Air Weight: 150 lb 5.684 oz Body Mass Index (BMI) 20.9 Intake & Output: Intake and Output for Last 24 Hours 04/30/24 05/01/24 05/02/24 23:59 23:59 23:59 Intake Total 750 / 990 1080 / 1080 240 / 240 Output Total 440 / 790 650 / 650 Balance 310 / 200 430 / 430 240 / 240 Medical Nutrition Assessment Dietitian: Malnutrition Criteria Met Start: 04/24/24 10:26 Freq: Status: Active Protocol: Document 04/24/24 10:26 JORDAN (Rec: 04/24/24 10:26 JORDAN [id number]) Nutrition Malnutrition Evidence of Malnutrition Exists Yes Malnutrition (severe): Acute Illness/Injury Evidenced By Suboptimal Energy Intake ( Severe),Weight Loss (Severe) Clinical Problem Acute Disease or Injury Related Malnutrition Etiology related to inadequate energy intake Signs/Symptoms as evidenced by 5% unintended wt loss and po intake 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 Lab / Micro Data 05/02/24 05:34 05/02/24 05:34 Labs: Laboratory Results - last 24 hr 05/02/24 05:34: WBC 5.8, RBC 4.59 L, Hgb 13.0, Hct 39.6 L, MCV 86.3, MCH 28.3, MCHC 32.8, RDW Std Deviation 42.2, RDW Coeff of Wilbert 13.6, Plt Count 280, MPV 10.0, Immature Gran % (Auto) 1.400 H, Neut % (Auto) 77.6 H, Lymph % (Auto) 13.7 L, [place] % (Auto) 4.7, Eos % (Auto) 2.4, Baso % (Auto) 0.2, Absolute Neuts (auto) 4.5, Absolute Lymphs (auto) 0.79 L, Nucleated RBC % 0, Sodium 131 L, Potassium 4.1, Chloride 100, Carbon Dioxide 25.0, Anion Gap 6, BUN 14, Creatinine 1.12, Estim Creat Clear Calc 54.97, Est GFR (MDRD) Af Amer 82, Est GFR (MDRD) Non-Af 68, BUN/Creatinine Ratio 12.5, Glucose 91, Calcium 8.8 Micro: Microbiology 04/25/24 14:00 Fluid - Pleural (Lung) Gram Stain - Final 04/25/24 14:00 Fluid - Pleural (Lung) Body Fluid Culture - Final Culture exhibits no growth. 04/25/24 14:00 Fluid - Pleural (Lung) Anaerobic Culture - Final No growth in 5 days. 04/23/24 22:18 Sputum, Expectorated/Coughed Gram Stain - Final 04/23/24 22:18 Sputum, Expectorated/Coughed Respiratory Culture - Final Klebsiella oxytoca 04/23/24 14:21 Mucosa - Nose Respiratory Panel (PCR) - Final Radiography Diagnostic Testing: Radiology Impression Chest X-Ray 05/01/24 06:12 IMPRESSION: No significant change. Electronically Signed: Rodolfo Lerma MD at 11:15 EDT , Chest X-Ray 05/01/24 15:40 IMPRESSION: Small right apical pneumothorax which is less than 5% in size. Electronically Signed: Eagle Santana MD at 16:48 EDT , Chest X-Ray 05/02/24 05:55 IMPRESSION: 1. No residual pneumothorax appreciated on this portable exam. Follow-up with additional imaging if clinically indicated. 2. Small right pleural effusion and right nasal or airspace disease. Electronically Signed: Eagle Saravia MD at 6:34 EDT , Physical Exam Const oriented x3 and no apparent distress Chest Chest Narrative: Right-sided chest tube exit site dressing remains intact. There is no evidence of subcutaneous emphysema. Resp normal respiratory effort Resp Narrative: Patient does demonstrate a dry cough. Assessment & Plan Assessment/Plan (1) Pneumothorax on right: PLAN: Plan Patient is doing well this morning. He is stable from a respiratory standpoint. No signs of pneumothorax on a.m. chest x-ray. His dressing from chest tube pulled yesterday is clean dry and intact. From a surgical standpoint he is cleared to discharge home and I have recommended maintaining his chest tube dressing for full 72 hours post pull. Would recommend suture removal from chest tube site no sooner than 7 days post pull. He is welcome to follow-up with general surgery for this purpose. Andres Friedman MD General Surgery Endocrine Surgery Pager: [facility] [address] [place] [address], [facility], [address] [place] [address] Office: [phone] Charges/Coding Visit Charges Inpatient E&M: 58933 Subs Hosp L2
[2024-05-02] MEDS: levoFLOXacin 750 MG Tablet PO (09:13)
[2024-05-02] MEDS: Heparin Injection (Vial) 5,000 UNIT/ML VIAL 5000 UNIT SC (09:13)
[2024-05-02] MEDS: Aspirin E.C. 81 MG Tablet PO (09:13)
[2024-05-02] MEDS: Pravastatin 40 MG Tablet PO (09:13)
[2024-05-02 10:26] VITALS: BP 114/54; PULSE 94; RESP 18; TEMP 36.6; O2SAT 98
--- NOTE | 2024-05-02 10:36 | CASEMGMT ---
Pt has an order for DC placed. This RN CM to pt room at this time. Pt states that he feels safe discharging home today. Pt states that his DIL and her are going to stay with the pt at home for a couple of days. Due to this, pt denies the need for HHC or OP Therapy needs of any sort. Pt notified that the RN will provide education regarding his suture sites and care. Pt is to f/u with his PCP within one week and is aware of this. Pt states that his daughter also lives 10 minutes from his house and will be his ride home today. Pt denies any further questions or concerns and is ready for DC home today.
--- NOTE | 2024-05-02 10:51 | PHA.DC_ITS ---
Pharmacy [facility] has performed discharge medication reconciliation and counseling for this patient. The patient's discharge medication list was reviewed for discrepancies and discrepancies were resolved. The patient was counseled on the following discharge medications and changes in medications for homegoing were reviewed. 1. LEVAQUIN 2. TYLENOL The Reason for Use, instructions for use, and potential side effects were reviewed for all new medications. The patient's questions regarding all of their medications were answered. The patient was able to verbally demonstrate an understanding of their discharge medications. The patient was counselled by Branden Urban PharmD Candidate Medications at Discharge Home Medications pravastatin 40 mg tablet 40 mg PO DAILY high cholesterol 01/16/18 aspirin 81 mg tablet,delayed release (Adult Low Dose Aspirin) 81 mg PO DAILY heart health 08/17/18 acetaminophen 325 mg tablet 650 mg (2 x 325 mg) PO Q6H PRN PRN Pain 1-10 Or Fever>100.7 #0 tabs 05/02/24 levofloxacin 750 mg tablet 750 mg PO DAILY@1000 #5 tabs 05/02/24
== END 2024-05-02 11:22 | disposition home or self-care (01) | DRG 177 ==
LOC: ED 14:44 → PCU 14:45
PROVIDERS: Hospitalist; Internal Medicine; Admitting Provider Internal Medicine; Emergency Provider Emergency Medicine; PCP Family Medicine; Visit Provider Internal Medicine
DX: J15.0 Pneumonia due to Klebsiella pneumoniae (principal); E43 Unspecified severe protein-calorie malnutrition; J96.01 Acute respiratory failure with hypoxia; N17.9 Acute kidney failure, unspecified; J44.0 Chronic obstructive pulmonary disease with (acute) lower respiratory infection; J91.8 Pleural effusion in other conditions classified elsewhere; E87.1 Hypo-osmolality and hyponatremia; J44.1 Chronic obstructive pulmonary disease with (acute) exacerbation; J95.812 Postprocedural air leak; J98.11 Atelectasis; J95.811 Postprocedural pneumothorax; I11.0 Hypertensive heart disease with heart failure; I50.9 Heart failure, unspecified; E86.0 Dehydration; J43.9 Emphysema, unspecified; E78.5 Hyperlipidemia, unspecified; Y92.239 Unspecified place in hospital as the place of occurrence of the external cause; Y84.4 Aspiration of fluid as the cause of abnormal reaction of the patient, or of later complication, without mention of misadventure at the time of the procedure; R00.0 Tachycardia, unspecified; Z68.21 Body mass index [BMI] 21.0-21.9, adult; Z79.82 Long term (current) use of aspirin; Z79.899 Other long term (current) drug therapy; Z87.891 Personal history of nicotine dependence
CPT/HCPCS: 32555; 36415; 71045; 71046; 71250; 76770; 80048; 80053; 82436; 82570; 82945; 83615; 83735; 83880; 83930; 83935; 84100; 84133; 84156; 84157; 84300; 84443; 84484; 84540; 85025; 85027; 85610; 85730; 87070; 87075; 87077; 87186; 87205; 87633; 88108; 88305; 88313; 88341; 88342; 89050; 93005; 93306; 94640; 97802; 99283; J7040; Q9957; A4216; C8929; J1940

== ENCOUNTER 2024-05-18 09:57 | Emergency (ER) | payer OTHER, SELFPAY ==
[2024-05-18 09:58] VITALS: BP 137/78; PULSE 98; RESP 16; TEMP 36.3; O2SAT 97; BMI 19.5
--- NOTE | 2024-05-18 10:08 | RAD_ITS ---
STUDY: X-RAY CHEST REASON FOR EXAM: Male, 73 years old. Shortness of breath TECHNIQUE: Single AP portable view of the chest. COMPARISON: Comparison is made with prior study dated May 02, 2024. FINDINGS: EKG electrodes are seen. Hyperinflation. There is evidence of a small to moderate-sized right pleural effusion with right basilar compressive atelectasis. No pneumothorax is seen at this time. Stable mild scarring at the right lung base. Normal size heart. Normal mediastinum and bart. Normal visualized pulmonary arteries. There is atherosclerotic calcification of the aortic arch with tortuosity. There are diffuse degenerative changes of the visualized thoracic spine. Normal visualized ribs, clavicles, and shoulders. There is no demonstrated abnormality of the visualized soft tissue structures of the upper abdomen. RAD/Chest 1 View (Portable) IMPRESSION: Small to moderate size right pleural effusion with right basilar compressive atelectasis. Electronically Signed: Henry Manning MD at 10:44 EDT ,
--- NOTE | 2024-05-18 10:09 | EKG12_ITS ---
Test Reason : SOB Blood Pressure : / mmHG Vent. Rate : 079 BPM Atrial Rate : 079 BPM P-R Int : 124 ms QRS Dur : 074 ms QT Int : 368 ms P-R-T Axes : 060 035 068 degrees QTc Int : 421 ms Normal sinus rhythm Normal ECG When compared with ECG of 23-APR-2024 12:59, No significant change was found Confirmed by Andres Mcginnis ([id number]), editor farm journal MEDARDO CHRISTINE ([id number]) on 05/19/2024 9:12:26 AM Referred By: Confirmed By:Andres Mcginnis
--- NOTE | 2024-05-18 10:11 | EX.ED.DYSGE1 ---
HPI History of Present Illness Chief Complaint: Confusion Narrative Narrative: 73-year-old male past medical history of hypertension, hyperlipidemia, status postthoracentesis for right-sided pleural effusion presents with his daughter for reported confusion. They relate history that he was seen in the emergency department a few weeks ago at the end of April, and admitted. He was diagnosed with bacterial pneumonia. At that time he had a moderately sized pleural effusion on the right. He states that he underwent thoracentesis, and they thought that the fluid was from his bacterial pneumonia. He was sent home on Levaquin. He denies any fevers or chills, no nausea or vomiting, no diarrhea. However, while he complains of shortness of breath, his daughter states that that is not the reason they are here. Ever since his release from the hospital 2 weeks ago, he seems more confused. He is more forgetful and is having problems with not being able to remember how to do simple tasks. [facility] Medical History Acute bronchitis Pleural effusion on right Hypoxia SOB (shortness of breath) Hyponatremia Pneumothorax on right Acute rhinosinusitis URI (upper respiratory infection) Elevated blood pressure reading in office without diagnosis of hypertension (~2014) GERD (gastroesophageal reflux disease) Essential (primary) hypertension Hyperlipidemia Abdominal aortic aneurysm (AAA) Home Medications ?Medication ?Instructions ?Recorded ?Last Taken ?Type pravastatin 40 mg tablet 40 mg PO DAILY high cholesterol 01/16/18 04/22/24 History aspirin 81 mg tablet,delayed 81 mg PO DAILY heart health 08/17/18 04/22/24 History release (Adult Low Dose Aspirin) acetaminophen 325 mg tablet 650 mg (2 x 325 mg) PO Q6H PRN PRN 05/02/24 Unknown Rx Pain 1-10 Or Fever>100.7 #0 tabs levofloxacin 750 mg tablet 750 mg PO DAILY@1000 #5 tabs 05/02/24 Unknown Rx Allergy/AdvReac Type Severity Reaction Status Date / Time No Known Allergies Allergy Verified 05/09/24 09:47 Family History Father Heart disease Hypertension Myocardial infarction TAA Sister Hypertension Mother Hypertension Surgical History History of placement of chest tube History of ear surgery History of inguinal hernia repair Social History Smoking Status: Former smoker ROS ROS ED ROS Narrative Constitutional: No fever, no chills. Seems more confused according to daughter. HEENT: No sore throat. No neck pain. No loss of vision. No rhinorrhea. Cardiovascular: No chest pain. No palpitations. No pedal edema. Respiratory: Positive dry cough, continued longstanding shortness of breath. Abdominal: No abdominal pain. No nausea. No vomiting. Genitourinary: No dysuria. No hematuria. Musculoskeletal: No myalgias. No arthralgias. Neurologic: No headaches. No dizziness. No lightheadedness. Skin: No rash. No change in color. Psychiatric: No depression. No anxiety. EXAM Physical Exam Narrative Exam Narrative: Afebrile. Vital signs noted. HEENT: Normocephalic. Atraumatic. PERRL, EOMI. Neck soft and supple. No point tenderness or step off. Cardiovascular: Regular rate and rhythm. No murmurs, rubs, or gallops appreciated. Respiratory: No tachypnea. Lungs clear to auscultation bilaterally. Decreased breath sounds right base. Gastrointestinal: Abdomen soft, nontender, with normoactive bowel sounds. No rebound or guarding. Neurological: Awake. Alert. Oriented to person, place, and year, but not month, thought it was June. Nonfocal, nonlateralizing. Skin: No rash. Normal color. No pallor. Musculoskeletal: No pedal edema. Full range of motion extremities. Const Vital Signs: 05/18/24 09:58 Temperature 97.4 F L Temperature Source Temporal Pulse Rate 98 Respiratory Rate 16 Blood Pressure 137/78 H Blood Pressure Mean 97 Pulse Ox 97 Oxygen Delivery Method Room Air MDM MDM MDM Narrative Medical decision making narrative: I reviewed the patient's prior workup. I had seen him in the emergency department and admitted him for his pleural effusion. He was additionally hyponatremic at that time. In review of his inpatient record, they thought that his fluid was parapneumonic versus CHF, and he was placed on a diuretic. Hence the differential diagnosis for his confusion does include dehydration versus other electrolyte imbalance. His pulse ox is 97% on room air. He does not appear CO2 narcotic on his history and physical, does not support that diagnosis. EKG and chest x-ray will be obtained to rule out reaccumulation of his pleural effusion. EKG was obtained and interpreted by myself independently as normal sinus rhythm at 79 bpm without ectopy or acute ST changes. No STEMI. I reviewed the radiology report of the CT of the brain which shows chronic involutional changes, but no evidence of acute ischemia. I reviewed his laboratory work and he has a normal white count of 6.3, hemoglobin stable at 11.6, hematocrit 36.3 with platelet count slightly elevated 485. Sodium is low at 132, but he has a chronically low hyponatremia. I do not feel this is the cause of his reported confusion. BUN of 10 and creatinine 1.12, no dehydration, ALT is slightly low at 15 with alk phos slightly elevated at 152. Urinalysis is negative for infection. No evidence of dehydration. Chest x-ray 1 view interpreted by myself independently shows a right-sided pleural effusion that is small to moderate, but he is not hypoxic. I reviewed the radiology report which confirms my independent interpretation. During his ED stay, he did tell me that he now knows that the month is May. While I am unsure as to the cause of his confusion and forgetfulness, I do not feel that he requires admission to the hospital. I feel he can be discharged to follow-up as an outpatient. Otherwise, he is alert, and oriented and not currently confused. Return instructions to the emergency department were reviewed. He will follow-up with a glove parts cutter regarding his pleural effusion. Disposition is discharged home in stable condition. History & Record Review Discussion w/independent historian: Patient and Family Additional record(s) reviewed:: Prior ED visit and Prior labs Lab Data Labs: Laboratory Results - last 24 hr 05/18/24 05/18/24 10:21 11:12 WBC 6.3 RBC 4.25 L Hgb 11.6 L Hct 36.3 L MCV 85.4 MCH 27.3 MCHC 32.0 RDW Std Deviation 43.3 RDW Coeff of Wilbert 13.8 Plt Count 485 H MPV 8.9 Immature Gran % (Auto) 0.300 Neut % (Auto) 81.1 H Lymph % (Auto) 10.9 L Lassen % (Auto) 7.1 Eos % (Auto) 0.3 Baso % (Auto) 0.3 Absolute Neuts (auto) 5.1 Absolute Lymphs (auto) 0.69 L Nucleated RBC % 0 Sodium 132 L Potassium 4.0 Chloride 100 Carbon Dioxide 26.0 Anion Gap 6 BUN 10 Creatinine 1.12 Estim Creat Clear Calc 51.37 Est GFR (MDRD) Af Amer 82 Est GFR (MDRD) Non-Af 68 BUN/Creatinine Ratio 8.9 L Glucose 115 H Calcium 9.1 Total Bilirubin 0.40 AST 18 ALT 15 L Alkaline Phosphatase 152 H Total Protein 7.2 Albumin 2.4 L Globulin 4.8 H Albumin/Globulin Ratio 0.5 L Urine Color Yellow Urine Clarity Clear Urine pH 7.0 Ur Specific [place] 1.005 Urine Protein Negative Urine Glucose (UA) Normal Urine Ketones Negative Urine Occult Blood Negative Urine Nitrite Negative Urine Bilirubin Negative Urine Urobilinogen Normal Ur Leukocyte Esterase Negative Urine RBC 0 SEEN Urine WBC 0 SEEN Ur Squamous Epith Cells 0 SEEN Urine Bacteria 0 SEEN Urine Mucus 0 SEEN Radiography Chest X-Ray - ED: Read by ED Physician Diagnostic Testing: Clinical Impression(s) from Imaging Studies Chest X-Ray 05/18/24 10:08 IMPRESSION: Small to moderate size right pleural effusion with right basilar compressive atelectasis. Electronically Signed: Henry Manning MD at 10:44 EDT , Brain CT 05/18/24 10:27 IMPRESSION: Chronic involutional changes of the brain. Electronically Signed: Henry Manning MD at 10:45 EDT , Discharge Plan Triage Chief Complaint: Confusion ED Provider: Edy Paulino Dx/Rx/DC Orders Clinical Impression: Confusion, Pleural effusion on right, Hyponatremia Instructions: ED Confusion, ED Hyponatremia, ED Pleural Effusion Prescriptions: No Action aspirin [Adult Low Dose Aspirin] 81 mg tablet,delayed release (DR/EC) 81 mg PO DAILY pravastatin 40 MG tablet 40 mg PO DAILY Patient Comments: TAKE 1 TABLET EVERY DAY acetaminophen 325 mg Tablet 650 mg PO Q6H PRN PRN (Reason: Pain 1-10 Or Fever>100.7) Qty: 0 0RF levofloxacin 750 mg Tablet 750 mg PO DAILY@1000 Qty: 5 0RF Primary Care Provider: Brent Martinez Referrals: Brent Martinez DO [Primary Care Provider] - 3-5 Days if not improving Print Language: Guinean Disposition Disposition: Home, Self Care
[2024-05-18] MEDS: 0.9% Normal Saline (1000mL) 1,000 ML 1000 ML IV (10:25)
--- NOTE | 2024-05-18 10:27 | CT_ITS ---
STUDY: CT BRAIN WITHOUT CONTRAST REASON FOR EXAM: Male, 73 years old. Confusion RADIATION DOSAGE (If Supplied By Facility): CTDIvol = ( 44.99 ) mGy, DLP = ( 863.60 ) mGycm TECHNIQUE: Transaxial CT imaging of the brain was performed without administration of intravenous contrast material. Individualized dose optimization techniques were used for this CT. COMPARISON: No relevant priors. FINDINGS: Normal soft tissue structures. Normal calvarium. There is mild cerebral atrophy with widening of the extra-axial spaces and ventricular dilatation. There are areas of decreased attenuation within the white matter tracts of the supratentorial brain, consistent with microvascular disease changes. Normal basal ganglia and thalami. Normal brainstem. Normal cerebellum. There is no intracranial hemorrhage. There are no findings of an acute ischemic infarction. Atherosclerotic calcification of the cavernous portions of the internal carotid arteries bilaterally. Normal visualized paranasal sinuses. CT/Brain/Head without Contrast IMPRESSION: Chronic involutional changes of the brain. Electronically Signed: Henry Manning MD at 10:45 EDT ,
[2024-05-18 10:28] LABS: Absolute Lymphocyte Count 0.69 X10^3/uL (0.83-4.51); Absolute Neutrophil Count 5.1 X10^3/uL (2.0-7.7); Basophil# 0.02 X10^3/uL; Basophil% 0.3 % (0-1); Eosinophil# 0.02 X10^3/uL; Eosinophils% 0.3 % (0-5); Hematocrit 36.3 % (40-54); Hemoglobin 11.6 g/dL (13.0-16.5); Lymphocyte # 0.69 X10^3/ul (0.83-4.51); Lymphocyte % 10.9 % (19-41); Mean Corpuscular Hgb 27.3 pg (27.0-32.0); Mean Corpuscular Volume 85.4 fL (80-94); Mean Platelet Vol. 8.9 fl (6.2-12.0); Monocyte# 0.45 X10^3/uL; Monocyte% 7.1 % (0-10); NRBC Flagged by Analyzer 0 % (0-5); Neutrophil # 5.12 X10^3/uL (2.7-7.7); Neutrophil % 81.1 % (47-70); Platelet Count 485 K/mm3 (150-450); RBC Distribution Width CV 13.8 % (11.6-14.6); RBC Distribution Width SD 43.3 fl (35.1-43.9); Red Blood Count 4.25 M/mm3 (4.6-6.2); White Blood Count 6.3 K/mm3 (4.4-11.0)
[2024-05-18 10:43] LABS: ALB/GLOB Ratio 0.5 RATIO (0.9-2.4); AST(SGOT) 18 U/L (15-37); Alanine Aminotransfer ALT/SGPT 15 U/L (16-61); Albumin, Serum 2.4 g/dL (3.2-5.0); Alkaline Phosphatase 152 U/L (45-117); Anion Gap 6 (5-15); BUN 10 mg/dL (7-18); BUN/Creat Ratio 8.9 RATIO (10-20); Calcium,Total 9.1 mg/dL (8.5-10.1); Chloride 100 mmol/L (98-107); Creatinine, Serum 1.12 mg/dL (0.70-1.30); EST Glomerular Filtration Rate 68 mL/min (>60); Est Glom Filt Rate - Afr Amer 82 mL/min (>60); Estimated Creatinine Clearance 51.37 ml/min; Globulin 4.8 g/dL (2.2-4.2); Glucose 115 mg/dL (74-106); Protein, Total 7.2 g/dL (6.4-8.2); Sodium Level 132 mmol/L (136-145)
[2024-05-18 11:18] LABS: Bacteria 0 SEEN /hpf (None Seen); Mucous, Urine 0 SEEN /hpf (<or=2+); Red Blood Cells-Urine 0 SEEN /hpf (0-5); Squamous Epithelial Cells - UA 0 SEEN /hpf (0-5); White Blood Cells 0 SEEN /hpf (0-5)
[2024-05-18 11:27] LABS: Color, Urine Yellow (Yellow); Glucose, Dipstick Normal (Normal); Ketone-Dipstick Negative (Negative); Leukocyte Esterase-Dipstick Negative /ul (Negative); Nitrite-Dipstick Negative (Negative); Occult Blood-Urine Negative /ul (Negative); Protein-Dipstick Negative (Negative); Specific Gravity, Urine 1.005 (1.002-1.030); Urine Bilirubin Dipstick Negative (Negative); Urine Clarity Clear (Clear); Urine Urobilinogen Normal (Normal)
[2024-05-18 12:40] VITALS: BP 118/62; PULSE 74; RESP 15; TEMP 36.2; O2SAT 96
== END 2024-05-18 12:43 | disposition home or self-care (01) ==
PROVIDERS: Emergency Provider Emergency Medicine; PCP Family Medicine; Visit Provider Emergency Medicine
DX: R41.0 Disorientation, unspecified (principal); J90 Pleural effusion, not elsewhere classified; I10 Essential (primary) hypertension; E78.5 Hyperlipidemia, unspecified; E87.1 Hypo-osmolality and hyponatremia; Z79.82 Long term (current) use of aspirin; Z79.899 Other long term (current) drug therapy; Z87.891 Personal history of nicotine dependence
CPT/HCPCS: 70450; 71045; 80053; 81001; 85025; 93005; 96360; 99283; J7030; A4216

== ENCOUNTER 2025-02-10 13:17 | Emergency (ER) | payer OTHER, SELFPAY ==
[2025-02-10 13:18] VITALS: BP 109/62; PULSE 96; RESP 20; TEMP 36.1; O2SAT 98
[2025-02-10 13:20] VITALS: BMI 14.6
[2025-02-10 13:26] VITALS: O2SAT 99
--- NOTE | 2025-02-10 13:26 | EKG12_ITS ---
Test Reason : SYNCOPE Blood Pressure : */* mmHG Vent. Rate : 76 BPM Atrial Rate : 76 BPM P-R Int : 116 ms QRS Dur : 78 ms QT Int : 388 ms P-R-T Axes : 78 74 75 degrees QTcB Int : 436 ms Sinus rhythm with marked sinus arrhythmia Otherwise normal ECG Confirmed by MILAGRO CALIX, MITZI ([id number]), videotape editor DEMETRIUS CHAVEZ ([id number]) on 02/17/2025 12:41:42 PM Referred By: CHAVO Confirmed By: MITZI HUMPHREY MD
--- NOTE | 2025-02-10 13:39 | EX.ED.DYSGE1 ---
HPI <AUGUST Galvan - Last Filed: 02/10/25 20:43> History of Present Illness Chief Complaint: Syncope Narrative Narrative: 74-year-old male with PMH of COPD presents after syncopal episode that occurred prior to arrival. He gets [employer] delivered and states he opened the door and then felt briefly lightheaded and passed out. States after he woke up the [employer] gentleman helped him into his chair. He has no injuries denies hitting his head. He is not on blood thinners. He states he has passed out about 5 times with preceding lightheadedness since November 2024. He attributes it to not eating and drinking much and dehydration. He has seen his primary care doctor and had normal blood work about a week and a half ago. His daughter was concerned that it happened again today and brought him in for evaluation. He denies fever, chest pain, shortness of breath, nausea or vomiting, diarrhea, melena hematochezia, and urinary symptoms. He uses an inhaler and takes an antidepressant. PFSH <AUGUST Galvan - Last Filed: 02/10/25 20:43> PFSH Medical History Acute bronchitis Pleural effusion on right Hypoxia SOB (shortness of breath) Hyponatremia Pneumothorax on right Acute rhinosinusitis URI (upper respiratory infection) Elevated blood pressure reading in office without diagnosis of hypertension (~2014) GERD (gastroesophageal reflux disease) Essential (primary) hypertension Hyperlipidemia Abdominal aortic aneurysm (AAA) Home Medications ?Medication ?Instructions ?Recorded ?Last Taken ?Type pravastatin 40 mg tablet 40 mg PO DAILY high cholesterol 01/16/18 04/22/24 History aspirin 81 mg tablet,delayed 81 mg PO DAILY heart health 08/17/18 04/22/24 History release (Adult Low Dose Aspirin) acetaminophen 325 mg tablet 650 mg (2 x 325 mg) PO Q6H PRN PRN 05/02/24 Unknown Rx Pain 1-10 Or Fever>100.7 #0 tabs levofloxacin 750 mg tablet 750 mg PO DAILY@1000 #5 tabs 05/02/24 Unknown Rx Allergy/AdvReac Type Severity Reaction Status Date / Time No Known Allergies Allergy Verified 02/10/25 13:20 Family History Father Heart disease Hypertension Myocardial infarction TAA Sister Hypertension Mother Hypertension Surgical History History of placement of chest tube History of ear surgery History of inguinal hernia repair Social History Smoking Status: Former smoker ROS <AUGUST Galvan - Last Filed: 02/10/25 20:43> ROS ED ROS Narrative Constitutional: Negative for fever, chills, malaise. CVS: Negative for palpitations, chest pain. Respiratory: Negative for shortness of breath, cough. GI: Negative for abdominal pain, nausea, vomiting, diarrhea, melena, hematochezia. Neuro: Negative for headache. EXAM <AUGUST Galvan - Last Filed: 02/10/25 20:43> Physical Exam Narrative Exam Narrative: CONST: Cachectic male sitting in no acute distress. EYES: Normal inspection. NECK: Normal inspection. RESP: No respiratory distress, CTAB. CVS: Regular rate and rhythm, no murmur, no gallop. ABD: Soft and nontender, no guarding or rebound, nondistended. SKIN: Color normal, no rash, warm, dry, intact. EXTREMITIES: Normal appearance, no pedal edema. NEURO: Alert and answering questions appropriately. PSYCH: Normal affect. Const Vital Signs: 02/10/25 13:18 02/10/25 13:26 02/10/25 13:50 Temperature 97 F L Temperature Source Temporal Pulse Rate 96 Pulse Rate [Lying] Pulse Rate [Sitting (for 1 minute prior to obtaining)] Pulse Rate [Standing (for 1 minute prior to obtaining)] Respiratory Rate 20 H Respiratory Effort Normal Blood Pressure 109/62 Blood Pressure [Lying] Blood Pressure [Sitting (for 1 minute prior to obtaining)] Blood Pressure [Standing (for 1 minute prior to obtaining)] Blood Pressure Mean 77 Blood Pressure Mean [Lying] Blood Pressure Mean [Sitting (for 1 minute prior to obtaining)] Blood Pressure Mean [Standing (for 1 minute prior to obtaining)] Pulse Ox 98 99 Oxygen Delivery Method Room Air Room Air 02/10/25 14:30 02/10/25 15:30 02/10/25 15:38 Temperature 98.0 F Temperature Source Pulse Rate 69 68 Pulse Rate [Lying] 65 Pulse Rate [Sitting (for 1 minute prior to obtaining)] 74 Pulse Rate [Standing (for 1 minute prior to obtaining)] 98 Respiratory Rate 17 16 Respiratory Effort Blood Pressure 156/80 H 156/76 H Blood Pressure [Lying] 151/80 H Blood Pressure [Sitting (for 1 minute prior to obtaining)] 128/81 H Blood Pressure [Standing (for 1 minute prior to obtaining)] 129/76 H Blood Pressure Mean 105 102 Blood Pressure Mean [Lying] 103 Blood Pressure Mean [Sitting (for 1 minute prior to obtaining)] 96 Blood Pressure Mean [Standing (for 1 minute prior to obtaining)] 93 Pulse Ox 97 98 Oxygen Delivery Method Room Air <Dr. Didier Soares MD - Last Filed: 02/10/25 15:37> Physical Exam Const Vital Signs: 02/10/25 13:18 02/10/25 13:26 02/10/25 13:50 Temperature 97 F L Temperature Source Temporal Pulse Rate 96 Pulse Rate [Lying] Pulse Rate [Sitting (for 1 minute prior to obtaining)] Pulse Rate [Standing (for 1 minute prior to obtaining)] Respiratory Rate 20 H Respiratory Effort Normal Blood Pressure 109/62 Blood Pressure [Lying] Blood Pressure [Sitting (for 1 minute prior to obtaining)] Blood Pressure [Standing (for 1 minute prior to obtaining)] Blood Pressure Mean 77 Blood Pressure Mean [Lying] Blood Pressure Mean [Sitting (for 1 minute prior to obtaining)] Blood Pressure Mean [Standing (for 1 minute prior to obtaining)] Pulse Ox 98 99 Oxygen Delivery Method Room Air Room Air 02/10/25 14:30 02/10/25 15:30 02/10/25 15:38 Temperature 98.0 F Temperature Source Pulse Rate 69 68 Pulse Rate [Lying] 65 Pulse Rate [Sitting (for 1 minute prior to obtaining)] 74 Pulse Rate [Standing (for 1 minute prior to obtaining)] 98 Respiratory Rate 17 16 Respiratory Effort Blood Pressure 156/80 H 156/76 H Blood Pressure [Lying] 151/80 H Blood Pressure [Sitting (for 1 minute prior to obtaining)] 128/81 H Blood Pressure [Standing (for 1 minute prior to obtaining)] 129/76 H Blood Pressure Mean 105 102 Blood Pressure Mean [Lying] 103 Blood Pressure Mean [Sitting (for 1 minute prior to obtaining)] 96 Blood Pressure Mean [Standing (for 1 minute prior to obtaining)] 93 Pulse Ox 97 98 Oxygen Delivery Method Room Air MDM <AUGUST Galvan - Last Filed: 02/10/25 20:43> [facility] Narrative Medical decision making narrative: History gathered from: Patient and his family member Differential includes but not limited to orthostatic hypotension, dehydration, HARPREET, electrolyte abnormality, cardiac etiology Differential includes but not limited to orthostatic hypotension, dehydration, HARPREET, cardiac abnormality 74-year-old male felt lightheaded and had a syncopal episode. He states this is occurred multiple times over the last months. He admits to decreased p.o. intake with no real reason. He appears cachectic but nontoxic. Vital signs stable. He has slightly dry mucous membrane with an otherwise unremarkable exam. WBC is 8.1. Hemoglobin of 11.1 is baseline. Platelets 431. Chemistry panel overall unremarkable. EKG nonischemic and troponin is 25. Chest x-ray shows a moderate right pleural effusion and some scarring. The read said there is a right paratracheal stripe which is compatible with a partial lobar collapse But I think a lot of this is chronic. His son states the patient had surgery to remove the fluid and it was noncancerous but he is felt slightly short of breath since then. I recommended follow-up with his PCP and pulmonology but do not think this is acute issue that requires admission. He is stable on room air. Of note he was also orthostatic positive and treated with IV fluids and then was able to ambulate and feels well. He was discharged in stable condition. I have personally performed a face to face assessment of the patient and have reviewed the LAKISHA Note. I performed a substantive portion of the visit including all aspects of the following. My valdes findings include: History is [74-year-old male had a syncopal episode at home. He has had multiple of these before at least 4 or 5. Said he was sitting at home. He gets Meals on Wheels. Someone knocked on his front door when he got up he got lightheaded and went down. Denies any injuries. He has had this happen multiple other times. He has no known cardiac history. He felt fine before he stood up. He denies any recent illness. No vomiting or diarrhea. He willingly admits he does not drink a lot of fluids. He denies any headache, chest pain, abdominal pain or shortness of breath. Has a known history of a prior right pleural effusion requiring drainage of chest tube.] Exam is [74-year-old male vital signs are stable afebrile. His pulse ox is 98% on room air no hypoxia. He looks very thin and cachectic that is been an ongoing issue per family. H EENT exam pupils round reactive light. No signs of trauma to his head or scalp. Mildly dry mucous membranes. Neck nontender lymphadenopathy. Back nontender. Lungs clear to auscultation bilaterally. Heart regular rhythm rate about 90 no murmur. Chest wall and ribs are nontender. Again very cachectic and thin. No chest wall pain. No crepitance. Abdomen is soft and nontender. Scaphoid. Moving all 4 extremities. Nontender no deformity. Normal range of motion. Normal cook specialty foreign food strength. Normal dorsi plantar flexion. Again very thin. Muscular atrophy. Neurologically is awake alert. Answer questions following commands. NIH is 0. GCS 15.] Medical Decison Making [74-year-old male history of syncope. Orthostatics were positive. He was given a liter normal saline. Underwent a cardiac workup but unknown if this is a cardiac event I think it was orthostatic hypotension.] Other additions or changes: [None] Lab Data Attestation: I reviewed the patient's lab results. Labs: Laboratory Results - last 24 hr 02/10/25 13:53 WBC 8.1 RBC 4.33 L Hgb 11.1 L Hct 35.9 L MCV 82.9 MCH 25.6 L MCHC 30.9 L RDW Std Deviation 52.5 H RDW Coeff of Wilbert 17.2 H Plt Count 431 MPV 10.3 Immature Gran % (Auto) 0.500 Neut % (Auto) 86.7 H Lymph % (Auto) 7.9 L [place] % (Auto) 4.7 Eos % (Auto) 0.1 Baso % (Auto) 0.1 Absolute Neuts (auto) 7.0 Absolute Lymphs (auto) 0.64 L Nucleated RBC % 0 Sodium 143 Potassium 4.1 Chloride 103 Carbon Dioxide 28.1 Anion Gap 12 BUN 20 H Creatinine 0.91 Estim Creat Clear Calc 46.59 L Est GFR (MDRD) Non-Af 87 BUN/Creatinine Ratio 22.0 H Glucose 105 H Calcium 11.0 Troponin T High Sens 25 H Radiography Diagnostic Testing: Clinical Impression(s) from Imaging Studies Chest X-Ray 02/10/25 13:55 IMPRESSION: 1. Widening of the right paratracheal stripe, most compatible with at least partial lobar collapse. Follow-up CT chest is recommended to evaluate for pulmonary neoplasm. 2. Stable moderate size right pleural effusion. Reading Location: [facility] EKG Initial EKG: Attestation: I personally reviewed and interpreted this EKG as follows: Interpretation: Sinus Rhythm and No Acute Injury Pattern Comments: Sinus rhythm with sinus arrhythmia at 76 bpm Normal intervals, no acute ischemic changes <Dr. Didier Soares MD - Last Filed: 02/10/25 15:37> MDM MDM Narrative Medical decision making narrative: I have personally performed a face to face assessment of the patient and have reviewed the LAKISHA Note. I performed a substantive portion of the visit including all aspects of the following. My valdes findings include: History is [74-year-old male had a syncopal episode at home. He has had multiple of these before at least 4 or 5. Said he was sitting at home. He gets Meals on Wheels. Someone knocked on his front door when he got up he got lightheaded and went down. Denies any injuries. He has had this happen multiple other times. He has no known cardiac history. He felt fine before he stood up. He denies any recent illness. No vomiting or diarrhea. He willingly admits he does not drink a lot of fluids. He denies any headache, chest pain, abdominal pain or shortness of breath. Has a known history of a prior right pleural effusion requiring drainage of chest tube.] Exam is [74-year-old male vital signs are stable afebrile. His pulse ox is 98% on room air no hypoxia. He looks very thin and cachectic that is been an ongoing issue per family. H EENT exam pupils round reactive light. No signs of trauma to his head or scalp. Mildly dry mucous membranes. Neck nontender lymphadenopathy. Back nontender. Lungs clear to auscultation bilaterally. Heart regular rhythm rate about 90 no murmur. Chest wall and ribs are nontender. Again very cachectic and thin. No chest wall pain. No crepitance. Abdomen is soft and nontender. Scaphoid. Moving all 4 extremities. Nontender no deformity. Normal range of motion. Normal cook specialty foreign food strength. Normal dorsi plantar flexion. Again very thin. Muscular atrophy. Neurologically is awake alert. Answer questions following commands. NIH is 0. GCS 15.] Medical Decison Making [74-year-old male history of syncope. Orthostatics were positive. He was given a liter normal saline. Underwent a cardiac workup but unknown if this is a cardiac event I think it was orthostatic hypotension.] Other additions or changes: [None] History & Record Review Discussion w/independent historian: Patient and Family Additional record(s) reviewed:: Prior inpatient record, Prior outpatient record, Prior ED visit and Prior labs Lab Data Lab results narrative: CBC shows white count 8.1. H&H 11.1 and 35. Platelets 431. Electrolytes showed gap 12. BUN and creatinine of 20 and 0.9. Glucose 105. Troponin 25. Labs: Laboratory Results - last 24 hr 02/10/25 13:53 WBC 8.1 RBC 4.33 L Hgb 11.1 L Hct 35.9 L MCV 82.9 MCH 25.6 L MCHC 30.9 L RDW Std Deviation 52.5 H RDW Coeff of Wilbert 17.2 H Plt Count 431 MPV 10.3 Immature Gran % (Auto) 0.500 Neut % (Auto) 86.7 H Lymph % (Auto) 7.9 L [place] % (Auto) 4.7 Eos % (Auto) 0.1 Baso % (Auto) 0.1 Absolute Neuts (auto) 7.0 Absolute Lymphs (auto) 0.64 L Nucleated RBC % 0 Sodium 143 Potassium 4.1 Chloride 103 Carbon Dioxide 28.1 Anion Gap 12 BUN 20 H Creatinine 0.91 Estim Creat Clear Calc 46.59 L Est GFR (MDRD) Non-Af 87 BUN/Creatinine Ratio 22.0 H Glucose 105 H Calcium 11.0 Troponin T High Sens 25 H Radiography Chest X-Ray - ED: 2 View, Read by ED Physician, Read by Radiologist, Heart, Mediastinum, Bony Structures and Chronic Changes Diagnostic Testing: Clinical Impression(s) from Imaging Studies Chest X-Ray 02/10/25 13:55 IMPRESSION: 1. Widening of the right paratracheal stripe, most compatible with at least partial lobar collapse. Follow-up CT chest is recommended to evaluate for pulmonary neoplasm. 2. Stable moderate size right pleural effusion. Reading Location: [facility] Chest x-ray, 2 views, AP and lateral, interpreted by by myself and radiologist shows chronic scarring in his right lung consistent with prior chest tube removal recurrent pleural effusion. No acute abnormalities. Rhythm Strip Rhythm Strip: Sinus Rhythm Rate: 76 Discharge Plan Triage Chief Complaint: Syncope ED Midlevel Provider: Dariana Gunderson ED Provider: Didier Soares Dx/Rx/DC Orders Clinical Impression: Syncope, Dehydration, Orthostatic hypotension, Pleural effusion on right Instructions: Causes of Syncope, Dehydration Prescriptions: No Action aspirin [Adult Low Dose Aspirin] 81 mg tablet,delayed release (DR/EC) 81 mg PO DAILY pravastatin 40 MG tablet 40 mg PO DAILY Patient Comments: TAKE 1 TABLET EVERY DAY acetaminophen 325 mg Tablet 650 mg PO Q6H PRN PRN (Reason: Pain 1-10 Or Fever>100.7) Qty: 0 0RF levofloxacin 750 mg Tablet 750 mg PO DAILY@1000 Qty: 5 0RF Primary Care Provider: Brent Martinez Referrals: Brent Martinez, [Primary Care Provider] - Activity Restrictions/Additional Instructions: Plenty of fluids and rest. You are dehydrated and were given IV fluids. It is very important that you eat and drink more to avoid dehydration. Your chest x-ray also shows scarring and fluid in the right lung similar to what you had before. It is very important follow-up with your PCP. Print Language: Comoran Disposition Disposition: Home, Self Care Discharge Date/Time: 02/10/25 15:51
[2025-02-10] MEDS: 0.9% Normal Saline (1000mL) 1,000 ML 999 ML IV (13:45)
--- NOTE | 2025-02-10 13:55 | RAD_ITS ---
PROCEDURE: CHEST PA AND LATERAL 02/10/2025 REASON FOR EXAM: CHEST PAIN TECHNIQUE: Frontal and lateral views of the chest. COMPARISON: Chest radiograph 05/18/2024. FINDINGS: Hardware: None. Heart: The right heart border is obscured. The heart is normal in size. Mediastinum: Mild calcification of the thoracic aorta. Lungs: Persistent findings of emphysema/COPD. Moderate right pleural effusion and adjacent atelectasis. There is widening of the right paratracheal stripe and increased right lung markings. No obvious pneumothorax. Bones: Degenerative changes are identified within the thoracic spine. Partially visualized endovascular stent within the upper abdomen. RAD/Chest PA and Lateral IMPRESSION: 1. Widening of the right paratracheal stripe, most compatible with at least par tial lobar collapse. Follow-up CT chest is recommended to evaluate for pulmonary neoplasm. 2. Stable moderate size right pleural effusion. Reading Location: [id number]
[2025-02-10 14:22] LABS: Absolute Lymphocyte Count 0.64 X10^3/uL (0.83-4.51); Basophil# 0.01 X10^3/uL; Basophil% 0.1 % (0-1); Eosinophil# 0.01 X10^3/uL; Eosinophils% 0.1 % (0-5); Hematocrit 35.9 % (40-54); Hemoglobin 11.1 g/dL (13.0-16.5); Lymphocyte # 0.64 X10^3/ul (0.83-4.51); Lymphocyte % 7.9 % (19-41); Mean Corp Hgb Conc 30.9 g/dL (32-36); Mean Corpuscular Hgb 25.6 pg (27.0-32.0); Mean Corpuscular Volume 82.9 fL (80-94); Mean Platelet Vol. 10.3 fl (6.2-12.0); Monocyte# 0.38 X10^3/uL; Monocyte% 4.7 % (0-10); NRBC Flagged by Analyzer 0 % (0-5); Neutrophil # 6.98 X10^3/uL (2.7-7.7); Neutrophil % 86.7 % (47-70); Platelet Count 431 K/mm3 (150-450); RBC Distribution Width CV 17.2 % (11.6-14.6); RBC Distribution Width SD 52.5 fl (35.1-43.9); Red Blood Count 4.33 M/mm3 (4.6-6.2); White Blood Count 8.1 K/mm3 (4.4-11.0)
[2025-02-10 14:30] VITALS: BP 128/81; BP 129/76; BP 151/80; PULSE 65; PULSE 74; PULSE 98
[2025-02-10 14:49] LABS: Anion Gap 12 (5-15); BUN 20 mg/dL (4-19); Carbon Dioxide 28.1 mmol/L (21.0-32.0); Chloride 103 mmol/L (98-108); Creatinine, Serum 0.91 mg/dL (0.70-1.20); EST Glomerular Filtration Rate 87 (>60); Estimated Creatinine Clearance 46.59 ml/min (50-250); Glucose 105 mg/dL (70-99); Potassium 4.1 mmol/L (3.3-5.1); Sodium Level 143 mmol/L (133-145); Troponin T High Sensitivity 25 ng/L (<=22)
[2025-02-10 15:30] VITALS: BP 156/80; PULSE 69; RESP 17; O2SAT 97
[2025-02-10 15:38] VITALS: BP 156/76; PULSE 68; RESP 16; TEMP 36.7; O2SAT 98
== END 2025-02-10 15:51 | disposition home or self-care (01) ==
PROVIDERS: Emergency Provider Emergency Medicine; PCP Family Medicine; Visit Provider Emergency Medicine
DX: I95.1 Orthostatic hypotension (principal); J44.9 Chronic obstructive pulmonary disease, unspecified; J90 Pleural effusion, not elsewhere classified; R59.0 Localized enlarged lymph nodes; I10 Essential (primary) hypertension; E78.5 Hyperlipidemia, unspecified; M62.50 Muscle wasting and atrophy, not elsewhere classified, unspecified site; E86.0 Dehydration; Z79.82 Long term (current) use of aspirin; Z79.899 Other long term (current) drug therapy; Z87.891 Personal history of nicotine dependence
CPT/HCPCS: 71046; 80048; 84484; 85025; 93005; 96360; 99285; A4216

== ENCOUNTER 2025-02-23 10:46 | Inpatient (IN) | payer OTHER, SELFPAY ==
[2025-02-23] VITALS (11 sets, daily range): BP systolic 84–159; BP diastolic 50–97; PULSE 61–102; RESP 15–28; TEMP 36.5–36.9; O2SAT 95–100; BMI 14.4; BMI 29.2
--- NOTE | 2025-02-23 12:18 | EKG12_ITS ---
Test Reason : Blood Pressure : */* mmHG Vent. Rate : 62 BPM Atrial Rate : 62 BPM P-R Int : 120 ms QRS Dur : 80 ms QT Int : 428 ms P-R-T Axes : 84 75 80 degrees QTcB Int : 434 ms Normal sinus rhythm Normal ECG Confirmed by MILAGRO CALIX, MITZI ([id number]), acquisition editor MEDARDO CHRISTINE ([id number]) on 02/27/2025 8:37:26 AM Referred By: Shyanne Bermeo Confirmed By: MITZI HUMPHREY MD
--- NOTE | 2025-02-23 12:18 | CT_ITS ---
PROCEDURE: CHEST WITHOUT CONTRAST 02/23/2025 REASON FOR EXAM: LEFT TRAUMA, SYNCOPE TECHNIQUE: Chest CT without contrast. Coronal and Sagittal reconstruction series were provided. One or more dose reduction techniques were used (e.g., Automated exposure control, adjustment of the mA and/or kV according to patient size, use of iterative reconstruction technique RADIATION DOSE SUMMARY: CTDlvol: 6.31 mGy DLP: 263.19 mGycm COMPARISON: Comparison is made with prior study dated April 27, 2024. FINDINGS: Hardware: EKG electrodes are seen. Lymph nodes: No suspicious lymph nodes are seen. Heart and Vasculature: Coronary artery calcifications are noted. Atherosclerotic calcifications of the thoracic aorta. Thoracic aorta and pulmonary arteries have normal contours; noncontrast technique limits evaluation. Coronary Artery Calcifications: Present Lungs and Airways: Hyperinflation. Focal anterior pleural scarring in the right upper lobe. There is evidence of nodular densities with the infiltrate in the posterolateral aspect of the right upper lobe. This abuts the right minor fissure. Tiny nodules are also seen along the right minor fissure. Small right pleural effusion with the right basilar atelectasis. Scarring in the right lower lobe. Pleura: Small right pleural effusion. Upper Abdomen: Unremarkable Bones: Degenerative changes of the thoracic spine. CT/Chest without Contrast IMPRESSION: Coronary artery calcification (CAC) is is present Small right pleural effusion with right basilar atelectasis and/or infiltrate. Focal infiltrate with nodular densities in the right upper lobe abutting the ri ght minor fissure. Follow-up recommended. Reading Location: [facility]
--- NOTE | 2025-02-23 12:18 | CT_ITS ---
EXAM: NONCONTRAST CT SCAN OF THE HEAD CLINICAL HISTORY: Fall COMPARISON: May 18, 2024 TECHNIQUE: Serial axial series through the head were obtained without contrast. 2-D coronal and sagittal reformats were then obtained. FINDINGS: Brain: There is no acute large territorial infarct, intracranial hemorrhage, midline shift or mass effect. There are atherosclerotic vascular calcifications involving the bilateral carotid siphons. The sella and pineal gland regions appear unremarkable. Evaluation of the brainstem is limited due to beam hardening artifact. There is no evidence of cerebellar tonsillar herniation. Ventricles: There is no acute hydrocephalus. Basilar cisterns are patent. Paranasal sinuses: Well-aerated Mastoid air cells: Well-aerated. Calvarium: The bony calvarium is intact. Orbits: The bilateral globes are symmetric, without retrobulbar compressive mass lesion or hemorrhage. Miscellaneous: CT/Brain/Head without Contrast IMPRESSION: No acute intracranial pathology. Reading Location: [facility]
--- NOTE | 2025-02-23 12:18 | CT_ITS ---
PROCEDURE: SPINE CERVICAL WITHOUT CONTRAS 02/23/2025 REASON FOR EXAM: TRAUMA, FALL TECHNIQUE: Cervical spine CT without contrast. Coronal and Sagittal reconstruction series were provided. One or more dose reduction techniques were used (e.g., Automated exposure control, adjustment of the mA and/or kV according to patient size, use of iterative reconstruction technique COMPARISON: None FINDINGS: Alignment: Normal Vertebrae: No vertebral fracture seen. Multilevel disc space narrowing and degeneration with the spondylosis. Soft Tissues: Atherosclerotic plaque formation of the aortic arch. Atherosclerotic plaque formation of the carotid bifurcations. C1-2: Unremarkable C2-3: Mild degree of disc space narrowing. Facet joint osteoarthritis and hypertrophy worse on the left side. No significant stenosis. C3-4: Mild degree of disc space narrowing. Spondylosis. Facet joint osteoarthritis and hypertrophy. Mild degree of bilateral neural foraminal stenosis. C4-5: Marked degree of disc space narrowing. Uncovertebral arthrosis. Facet joint osteoarthritis. Bilateral neural foraminal stenosis worse on the right side. C5-6: Marked degree of disc space narrowing and spondylosis. Uncovertebral arthrosis. Bilateral neural foraminal stenosis. C6-7: Moderate degree of disc space narrowing. Facet joint osteoarthritis and hypertrophy. C7-T1: Unremarkable CT/Spine Cervical without Contras IMPRESSION: DEGENERATIVE CHANGES OF THE CERVICAL SPINE. NO EVIDENCE OF SIGNIFICANT OSSEOUS CENTRAL CANAL OR NEURAL FORAMINAL STENOSIS. Reading Location: [id number]
[2025-02-23] MEDS: Lidocaine 5% Patch 1 PATCH TOPICAL (12:30)
--- NOTE | 2025-02-23 12:31 | EDS_ITS ---
HPI History of Present Illness Chief Complaint: Syncope Informant: patient Narrative Narrative: Patient 74 year old male with history of hyponatremia, AAA s/p repair, GERD, hypertension, hyperlipidemia and chronic lung disease on 2 L of oxygen at baseline (this was just started 1 week ago) presenting with syncopal episode with subsequent injuries. Patient got up to try to use the restroom when he must of passed out. He members feeling flushed right before hand. He hit a piece of furniture and struck his left lower ribs as well as underside of his chin. He states he has passed out in the past and is seen in the ER and they thought maybe he was dehydrated or not getting enough nutrition. He notes that he does often get lightheaded. He denies any associate chest pain, change in his cough or sputum production, fever or chills. Denies any nausea or vomiting. Denies any changes bowel movements or urination. No other complaints or concerns at this time. His daughter is at his bedside currently as well. Chart review shows that patient was seen in the ER on 02/10/2025 after an episode of syncope and lightheadedness. No injuries. Has had multiple episodes of syncope since November of this year. He was given a liter of IV fluid and otherwise had a largely normal workup. Was discharged home with outpatient follow-up. Did have an abnormal chest x-ray showed widening of the right paratracheal stripe most compatible with at least partial lobar collapse. He also had stable moderate size right pleural effusion [facility] Medical History Acute bronchitis Pleural effusion on right Hypoxia SOB (shortness of breath) Hyponatremia Pneumothorax on right Acute rhinosinusitis URI (upper respiratory infection) Elevated blood pressure reading in office without diagnosis of hypertension (~2014) GERD (gastroesophageal reflux disease) Essential (primary) hypertension Hyperlipidemia Abdominal aortic aneurysm (AAA) Home Medications ?Medication ?Instructions ?Recorded ?Last Taken ?Type pravastatin 40 mg tablet 40 mg PO DAILY high choleste rol 01/16/18 02/22/25 History aspirin 81 mg tablet,delayed 81 mg PO DAILY heart heal th 08/17/18 02/22/25 History release (Adult Low Dose Aspirin) albuterol sulfate 90 mcg/actuation 2 puff inhalation Q 4H PRN PRN 02/23/25 Unknown History aerosol inhaler wheezing escitalopram oxalate 10 mg tablet 10 mg PO DAILY 02/2302/22/25 History Allergy/AdvReac Type Severity Reaction Status Date / Time No Known Allergies Allergy Verified 02/10/25 13:20 Family History Father Heart disease Hypertension Myocardial infarction TAA Sister Hypertension Mother Hypertension Surgical History History of placement of chest tube History of ear surgery History of inguinal hernia repair Social History Smoking Status: Former smoker ROS ROS ED Constitutional Constitutional ED: Reports sweats; Denies chills or fever(s) Eyes Eyes: Denies blurry vision or change in vision Cardiovascular Cardiovascular: Denies chest pain Respiratory/Chest Respiratory/Chest: Reports other Details: Left-sided lower rib pain, pain with inspiration ; Denies cough, dyspnea or sputum Gastrointestinal Gastrointestinal: Denies abdominal pain Musculoskeletal Musculoskeletal: Reports arthralgias, neck pain and other Details: Bilateral collarbone pain from fall, pain to the chin Integumentary Reports Abrasions; Denies rash Neurologic Neurologic: Reports weakness; Denies headache(s) or paresthesias Psychiatric Psychiatric: Denies anxiety Hematologic/Lymphatic Hematologic/Lymphatic: Denies easy bleeding or easy bruising EXAM Physical Exam Const Vital Signs: 02/23/25 10:47 02/23/25 11:46 02/23/25 12:00 Temperature 97.8 F Temperature Source Oral Pulse Rate 78 71 71 Pulse Rate [Lying] Pulse Rate [Sitting (for 1 minute prior to obtaining)] Pulse Rate [Standing (for 1 minute prior to obtaining)] Respiratory Rate 24 H 20 H 18 Blood Pressure 135/75 H 153/81 H 151/96 H Blood Pressure [Lying] Blood Pressure [Sitting (for 1 minute prior to obtaining)] Blood Pressure [Standing (for 1 minute prior to obtaining)] Blood Pressure Mean 95 105 114 Blood Pressure Mean [Lying] Blood Pressure Mean [Sitting (for 1 minute prior to obtaining)] Blood Pressure Mean [Standing (for 1 minute prior to obtaining)] Pulse Ox 99 99 99 Oxygen Delivery Method Nasal Cannula Oxygen Flow Rate (L/min) 02/23/25 13:00 02/23/25 15:21 02/23/25 15:25 Temperature Temperature Source Pulse Rate 71 64 Pulse Rate [Lying] 61 Pulse Rate [Sitting (for 1 minute prior to obtaining)] 88 Pulse Rate [Standing (for 1 minute prior to obtaining)] 102 H Respiratory Rate 18 16 Blood Pressure 150/90 H 145/97 H Blood Pressure [Lying] 145/97 H Blood Pressure [Sitting (for 1 minute prior to obtaining)] 95/66 Blood Pressure [Standing (for 1 minute prior to obtaining)] 84/64 L Blood Pressure Mean 110 113 Blood Pressure Mean [Lying] 113 Blood Pressure Mean [Sitting (for 1 minute prior to obtaining)] 75 Blood Pressure Mean [Standing (for 1 minute prior to obtaining)] 70 Pulse Ox 99 98 Oxygen Delivery Method Nasal Cannula Oxygen Flow Rate (L/min) 2 Positive cachectic General Appearance ED: cachectic and NAD Nutritional Appearance: cachectic HEENT Reports dry mucous membranes Mouth ED: Yes dry mucous membranes Mouth: dry mucous membranes Eyes PERRL Neck no JVD Chest Wall Chest Narrative: Of redness over the left anterior lower ribs with associated tenderness. No chest wall crepitus appreciated. No flail chest present. Resp normal respiratory effort Resp Narrative: Diminished breath sounds at the bases bilaterally. Cardio regular rate GI normal to inspection, nondistended, normoactive bowel sounds, non-tender and non-distended Extremity normal to inspection General Extremety ED: Negative for edema General Extremity: Negative for edema Neuro oriented x3 Sensorium / Orientation: alert Motor Exam: general weakness Psych mental status grossly normal Skin Skin Narrative: Superficial abrasions noted of the bilateral medial collarbones. Mild redness consistent with contusion to the left anterior lower ribs at approximate midclavicular line and at the costochondral margin. MDM MDM MDM Narrative Medical decision making narrative: Patient is evaluated for left-sided rib pain and other injuries after syncopal episode. Patient had multiple syncopal episodes after the past few months. He lives home alone. His daughter is at the bedside is quite concerned about his ability to take care of himself at home given that he keeps passing out. Of note he was seen in our ER 2 weeks ago for similar presentation. That time he was discharged home after receiving IV fluids. Differential includes orthostatic hypotension, arrhythmia, HARPREET, electrolyte abnormality, rib fracture, intracranial hemorrhage, cervical spine trauma. 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 He does not have any neck tenderness to palpation. CT of the brain does not show any acute process. CT of the chaste shows small right pleural effusion with right basilar atelectasis and/or infiltrate. Given that patient does not report any acute cough or fever and does not have a leukocytosis lower suspicion for pneumonia. There is focal infiltrate with nodular density of the right upper lobe abutting the right minor fissure and follow-up is recommended. EKG does not show any acute arrhythmia. CBC shows a mild anemia with hemoglobin 11.3 this appears stable and at his baseline. CMP largely normal however his chloride is mildly low at 93. Initial high-sensitivity troponin is 18. Lower suspicion for ACS but delta is pending. Urinalysis does show 15 ketones but not consistent with infection. Patient is orthostatic positive after liter of fluid in the emergency room. Patient and daughter would feel more comfortable the patient be admitted to the hospital given his frequent falls and severity of injuries now with these syncopal episode/falls. He did require morphine and Lidoderm for pain control he continues to have pretty significant left-sided rib pain. Will speak with hospitalist. Lab Data Attestation: I reviewed the patient's lab results. Labs: Laboratory Results - last 24 hr 02/23/25 02/23/25 12:30 13:25 WBC 8.2 RBC 4.31 L Hgb 11.3 L Hct 35.4 L MCV 82.1 MCH 26.2 L MCHC 31.9 L RDW Std Deviation 49.5 H RDW Coeff of Wilbert 16.5 H Plt Count 409 MPV 10.4 Immature Gran % (Auto) 0.500 Neut % (Auto) 90.7 H Lymph % (Auto) 4.3 L [place] % (Auto) 4.3 Eos % (Auto) 0.1 Baso % (Auto) 0.1 Absolute Neuts (auto) 7.5 Absolute Lymphs (auto) 0.35 L Nucleated RBC % 0 Sodium 133 Potassium 4.8 Chloride 93 L Carbon Dioxide 27.3 Anion Gap 12 BUN 11 Creatinine 0.69 L Estim Creat Clear Calc 52.22 Est GFR (MDRD) Non-Af 96 BUN/Creatinine Ratio 16.1 Glucose 85 Calcium 10.1 Total Bilirubin 0.47 AST 20 ALT 10 Alkaline Phosphatase 118 Troponin T High Sens 18 D Total Protein 7.0 Albumin 3.1 L Globulin 3.9 Albumin/Globulin Ratio 0.8 L Urine Color Yellow Urine Clarity Clear Urine pH 6.0 Ur Specific [place] 1.020 Urine Protein 15 H Urine Glucose (UA) Normal Urine Ketones 15 H Urine Occult Blood 10 H Urine Nitrite Negative Urine Bilirubin Negative Urine Urobilinogen Normal Ur Leukocyte Esterase Negative Urine RBC 0-5 SEEN Urine WBC 0 SEEN Ur Squamous Epith Cells 0-5 SEEN Urine Bacteria 0 SEEN Urine Mucus 0 SEEN Radiography Diagnostic Testing: Clinical Impression(s) from Imaging Studies Brain CT 02/23/25 12:18 IMPRESSION: No acute intracranial pathology. Reading Location: [facility] Cervical Spine CT 02/23/25 12:18 IMPRESSION: DEGENERATIVE CHANGES OF THE CERVICAL SPINE. NO EVIDENCE OF SIGNIFICANT OSSEOUS CENTRAL CANAL OR NEURAL FORAMINAL STENOSIS. Reading Location: [id number] Chest CT 02/23/25 12:18 IMPRESSION: Coronary artery calcification (CAC) is is present Small right pleural effusion with right basilar atelectasis and/or infiltrate. Focal infiltrate with nodular densities in the right upper lobe abutting the right minor fissure. Follow-up recommended. Reading Location: [id number] Rhythm Strip Rhythm Strip: Sinus Rhythm Rate: 62 Ectopy: None EKG Initial EKG: Attestation: I personally reviewed and interpreted this EKG as follows: Interpretation: Sinus Rhythm Comments: Normal sinus rhythm rate of 62 bpm Normal axis Normal intervals Normal ST segments Prior EKG tracings: available for review Prior: Unchanged Management Discussion w/another healthcare provider: Hospitalist Discharge Plan Triage Chief Complaint: Syncope ED Provider: Shyanne Bermeo Dx/Rx/DC Orders Prescriptions: No Action aspirin [Adult Low Dose Aspirin] 81 mg tablet,delayed release (DR/EC) 81 mg PO DAILY pravastatin 40 MG tablet 40 mg PO DAILY Patient Comments: TAKE 1 TABLET EVERY DAY albuterol sulfate 90 mcg/actuation HFA aerosol inhaler 2 puff inhalation Q4H PRN PRN (Reason: wheezing) escitalopram oxalate 10 mg tablet 10 mg PO DAILY Primary Care Provider: Brent Martinez Referrals: Brent Martinez DO [Primary Care Provider] - Print Language: Thai
[2025-02-23] MEDS: Morphine 4 MG/ML Syringe IV (12:33)
[2025-02-23] MEDS: 0.9% Normal Saline (1000mL) 1,000 ML 1000 ML IV (12:34)
[2025-02-23 12:58] LABS: Absolute Lymphocyte Count 0.35 X10^3/uL (0.83-4.51); Absolute Neutrophil Count 7.5 X10^3/uL (2.0-7.7); Basophil# 0.01 X10^3/uL; Basophil% 0.1 % (0-1); Eosinophil# 0.01 X10^3/uL; Eosinophils% 0.1 % (0-5); Hematocrit 35.4 % (40-54); Hemoglobin 11.3 g/dL (13.0-16.5); Lymphocyte # 0.35 X10^3/ul (0.83-4.51); Lymphocyte % 4.3 % (19-41); Mean Corp Hgb Conc 31.9 g/dL (32-36); Mean Corpuscular Hgb 26.2 pg (27.0-32.0); Mean Corpuscular Volume 82.1 fL (80-94); Mean Platelet Vol. 10.4 fl (6.2-12.0); Monocyte# 0.35 X10^3/uL; Monocyte% 4.3 % (0-10); NRBC Flagged by Analyzer 0 % (0-5); Neutrophil # 7.47 X10^3/uL (2.7-7.7); Neutrophil % 90.7 % (47-70); POSITIVE DIFFERENTIAL YES; Platelet Count 409 K/mm3 (150-450); RBC Distribution Width CV 16.5 % (11.6-14.6); RBC Distribution Width SD 49.5 fl (35.1-43.9); Red Blood Count 4.31 M/mm3 (4.6-6.2); White Blood Count 8.2 K/mm3 (4.4-11.0)
[2025-02-23 13:18] LABS: ALB/GLOB Ratio 0.8 RATIO (0.9-2.4); AST(SGOT) 20 U/L (<=37); Alanine Aminotransfer ALT/SGPT 10 U/L (<=46); Albumin, Serum 3.1 g/dL (3.4-4.8); Alkaline Phosphatase 118 U/L (40-129); Anion Gap 12 (5-15); BUN 11 mg/dL (4-19); BUN/Creat Ratio 16.1 RATIO (10-20); Calcium,Total 10.1 mg/dL (7.6-11.0); Carbon Dioxide 27.3 mmol/L (21.0-32.0); Chloride 93 mmol/L (98-108); Creatinine, Serum 0.69 mg/dL (0.70-1.20); EST Glomerular Filtration Rate 96 (>60); Estimated Creatinine Clearance 52.22 ml/min (50-250); Globulin 3.9 g/dL (2.2-4.2); Glucose 85 mg/dL (70-99); Potassium 4.8 mmol/L (3.3-5.1); Sodium Level 133 mmol/L (133-145); Total Bilirubin 0.47 mg/dL (0.00-1.30)
[2025-02-23 13:27] LABS: Troponin T High Sensitivity 18 ng/L (<=22)
[2025-02-23 13:39] LABS: Bacteria 0 SEEN /hpf (None Seen); Mucous, Urine 0 SEEN /hpf (<or=2+); White Blood Cells 0 SEEN /hpf (0-5)
[2025-02-23 14:04] LABS: Color, Urine Yellow (Yellow); Glucose, Dipstick Normal (Normal); Ketone-Dipstick 15 mg/dl (Negative); Leukocyte Esterase-Dipstick Negative /ul (Negative); Nitrite-Dipstick Negative (Negative); Occult Blood-Urine 10 /ul (Negative); Protein-Dipstick 15 mg/dl (Negative); Urine Bilirubin Dipstick Negative (Negative); Urine Clarity Clear (Clear); Urine Urobilinogen Normal (Normal)
[2025-02-23 14:17] LABS: Red Blood Cells-Urine 0-5 SEEN /hpf (0-5); Squamous Epithelial Cells - UA 0-5 SEEN /hpf (0-5)
--- NOTE | 2025-02-23 15:48 | PCM.HP.STD ---
HPI - General General Date of Admission: 02/23/25 Date of Service: 02/23/25 Chief Complaint: Syncopal event. HPI Narrative The patient is a 74 y/o M w/ PMHx: Anxiety and Depression, Former tobacco use, Chronic anemia, CKD stage II per GFR trending, AAA, HTN, HLD, GERD, Chronic Hypoxic Respiratory Failure (2L NC) secondary to COPD who presents to the [facility] ED on 02/23/25 with history of syncopal events noting that he had been up to try to get to the restroom to urinate when he had a syncopal events with witnesses noting that he felt off, lightheaded and dizzy as well as flushed just before he passed out unfortunately hitting a piece of furniture, striking his left lower ribs as well as under his chin. Patient does have chronic issues with lightheadedness and dizziness and has had syncopal events in the past. He denies any recent chest discomfort, increased cough or dyspnea and no fevers or chills. Family notes that frequently when this is occurred is when he is changing position going from a seated to a standing position. Workup in the ED included T97.8, heart rate 78, BP 135/75, respiratory rate 24, 99% on 2 L nasal cannula, + notably positive orthostatics, CBC with WBC 8.2, hemoglobin 9.3, MCV 82.1, platelet 409 with lymphopenia, CMP with BUN/creatinine 11/0.69, GFR 96, chloride 93 otherwise not marked appearing, initial troponin 18 with delta 2-hour troponin pending upon evaluation, urinalysis not marked appearing, CT the brain with no acute intracranial findings, CT cervical spine with degenerative changes with no acute finding, CT chest small right pleural effusion with right basilar atelectasis and/or infiltrate, focal infiltrate with nodular densities in the right upper lobe abutting the right minor fissure, EKG with sinus rhythm with no acute evidence of ischemia. In the ED patient ministered 1 L normal saline, lidocaine patch, morphine 4 mg IV x 1. [facility] Medical History Kidney stones Former smoker On home oxygen therapy Anxiety and depression Chronic hypoxic respiratory failure COPD (chronic obstructive pulmonary disease) Former tobacco use Pneumothorax on right Pleural effusion on right Elevated blood pressure reading in office without diagnosis of hypertension (~2014) GERD (gastroesophageal reflux disease) Essential (primary) hypertension Hyperlipidemia Abdominal aortic aneurysm (AAA) Home Medications ?Medication ?Instructions ?Recorded ?Last Taken ?Type pravastatin 40 mg tablet 40 mg PO DAILY high cholesterol 01/16/18 02/22/25 History aspirin 81 mg tablet,delayed 81 mg PO DAILY heart health 08/17/18 02/22/25 History release (Adult Low Dose Aspirin) albuterol sulfate 90 mcg/actuation 2 puff inhalation Q4H PRN PRN 02/23/25 Unknown History aerosol inhaler wheezing escitalopram oxalate 10 mg tablet 10 mg PO DAILY 02/23/25 02/22/25 History Allergy/AdvReac Type Severity Reaction Status Date / Time No Known Allergies Allergy Verified 02/10/25 13:20 Family History Father Heart disease Hypertension Myocardial infarction TAA Sister Hypertension Mother Hypertension Surgical History S/P AAA repair History of placement of chest tube History of ear surgery History of inguinal hernia repair Social History (Updated 02/23/25 @ 17:[address] Rajani Nina MD) household members: none Smoking Status: Former smoker how long ago did patient quit smoking: Quit 08/26/2011. alcohol intake: never substance use type: does not use ROS ROS Narrative Admission Review of Systems: CONSTITUTIONAL: No weight loss, fever, chills, + weakness or fatigue. HEENT: + Lightheadedness/dizziness, syncopal event. Eyes: No visual loss, blurred vision, double vision or yellow sclerae. Ears, Nose, Throat: No hearing loss, sneezing, congestion, runny nose or sore throat. SKIN: No rash or itching, lesions, wounds. CARDIOVASCULAR: + Lightheadedness, dizziness, syncopal event, chest discomfort from recent fall trauma. No palpitations, edema, orthopnea. RESPIRATORY: + Chronic dyspnea on oxygen therapy, no recent marked cough, productive sputum or wheezing nor any hemoptysis GASTROINTESTINAL: No anorexia, nausea, vomiting or diarrhea, abdominal pain, melena, BRBPR. GENITOURINARY: No dysuria, frequency, urgency or retention. NEUROLOGICAL: + Lightheadedness/dizziness, syncopal event. No headache, paralysis, ataxia, numbness or tingling in the extremities, focal weakness, change in bowel or bladder control, seizure. MUSCULOSKELETAL: No muscle, back pain, joint pain or stiffness. HEMATOLOGIC: + Chronic anemia. No marked easy history of bleeding or bruising. LYMPHATICS: No enlarged nodes. No history of splenectomy. PSYCHIATRIC: + History of anxiety and depression. ENDOCRINOLOGIC: No reports of sweating, cold or heat intolerance. No polyuria or polydipsia. ALLERGIES: No history of asthma, hives, eczema or rhinitis. Vital Signs Vital Signs Vital Signs: 02/23/25 10:47 02/23/25 11:46 02/23/25 12:00 Temperature 97.8 F Temperature Source Oral Pulse Rate 78 71 71 Pulse Rate [Lying] Pulse Rate [Sitting (for 1 minute prior to obtaining)] Pulse Rate [Standing (for 1 minute prior to obtaining)] Respiratory Rate 24 H 20 H 18 Blood Pressure 135/75 H 153/81 H 151/96 H Blood Pressure [Lying] Blood Pressure [Sitting (for 1 minute prior to obtaining)] Blood Pressure [Standing (for 1 minute prior to obtaining)] Blood Pressure Mean 95 105 114 Blood Pressure Mean [Lying] Blood Pressure Mean [Sitting (for 1 minute prior to obtaining)] Blood Pressure Mean [Standing (for 1 minute prior to obtaining)] Pulse Ox 99 99 99 Oxygen Delivery Method Nasal Cannula Oxygen Flow Rate (L/min) 02/23/25 13:00 02/23/25 15:21 02/23/25 15:25 Temperature Temperature Source Pulse Rate 71 64 Pulse Rate [Lying] 61 Pulse Rate [Sitting (for 1 minute prior to obtaining)] 88 Pulse Rate [Standing (for 1 minute prior to obtaining)] 102 H Respiratory Rate 18 16 Blood Pressure 150/90 H 145/97 H Blood Pressure [Lying] 145/97 H Blood Pressure [Sitting (for 1 minute prior to obtaining)] 95/66 Blood Pressure [Standing (for 1 minute prior to obtaining)] 84/64 L Blood Pressure Mean 110 113 Blood Pressure Mean [Lying] 113 Blood Pressure Mean [Sitting (for 1 minute prior to obtaining)] 75 Blood Pressure Mean [Standing (for 1 minute prior to obtaining)] 70 Pulse Ox 99 98 Oxygen Delivery Method Nasal Cannula Oxygen Flow Rate (L/min) 2 Weight Weight: 103 lb 9.876 oz Body Mass Index (BMI) 14.4 Physical Exam Narrative Physical Examination: General: Awake, alert, oriented x 3 and cooperative, seated upright in the ED bed, fatigued. Skin: Normal color, normal turgor, no icterus, no cyanosis except occasional abrasion, staged ecchymoses. HEENT: AT/NC, EOMI, PERRLA, mildly dry MM, no carotid bruits or JVD noted. Lungs: Mildly diminished, greater bases, appropriate for, some tenderness to palpation of the left lateral lower ribs, no rales, ronchi or wheezing. Heart: Regular rate and rhythm; no gallop, rub audible. Abdomen: Soft, thin habitus, NTTP, ND, mildly hyperactive BS, no appreciated HSM. Extremities: No cyanosis, no clubbing, evidence of muscle loss/fat loss. Neurological: Patient awake, alert, oriented as noted, cognitive function intact; pupils equally reactive to light and accommodation, cranial nerves gross normal, moving all 4 extremities, no focal deficits, strength moderately globally decreased Psychiatric: Affect appears mildly flat, fatigued, no acute evidence of depressive or anxiety feelings but does have underlying history. Results Lab / Micro Data 02/23/25 12:30 02/23/25 12:30 Labs: Laboratory Results - last 24 hr 02/23/25 12:30: WBC 8.2, RBC 4.31 L, Hgb 11.3 L, Hct 35.4 L, MCV 82.1, MCH 26.2 L, MCHC 31.9 L, RDW Std Deviation 49.5 H, RDW Coeff of Wilbert 16.5 H, Plt Count 409, MPV 10.4, Immature Gran % (Auto) 0.500, Neut % (Auto) 90.7 H, Lymph % (Auto) 4.3 L, [place] % (Auto) 4.3, Eos % (Auto) 0.1, Baso % (Auto) 0.1, Absolute Neuts (auto) 7.5, Absolute Lymphs (auto) 0.35 L, Nucleated RBC % 0, Sodium 133, Potassium 4.8, Chloride 93 L, Carbon Dioxide 27.3, Anion Gap 12, BUN 11, Creatinine 0.69 L, Estim Creat Clear Calc 52.22, Est GFR (MDRD) Non-Af 96, BUN/Creatinine Ratio 16.1, Glucose 85, Calcium 10.1, Total Bilirubin 0.47, AST 20, ALT 10, Alkaline Phosphatase 118, Troponin T High Sens 18 D, Total Protein 7.0, Albumin 3.1 L, Globulin 3.9, Albumin/Globulin Ratio 0.8 L 02/23/25 13:25: Urine Color Yellow, Urine Clarity Clear, Urine pH 6.0, Ur Specific [place] 1.020, Urine Protein 15 H, Urine Glucose (UA) Normal, Urine Ketones 15 H, Urine Occult Blood 10 H, Urine Nitrite Negative, Urine Bilirubin Negative, Urine Urobilinogen Normal, Ur Leukocyte Esterase Negative, Urine RBC 0-5 SEEN, Urine WBC 0 SEEN, Ur Squamous Epith Cells 0-5 SEEN, Urine Bacteria 0 SEEN, Urine Mucus 0 SEEN Rhythm Strip Rhythm Strip: Sinus Rhythm Rate: 62 Ectopy: None Imaging Radiology Impression Brain CT 02/23/25 12:18 IMPRESSION: No acute intracranial pathology. Reading Location: [facility] Cervical Spine CT 02/23/25 12:18 IMPRESSION: DEGENERATIVE CHANGES OF THE CERVICAL SPINE. NO EVIDENCE OF SIGNIFICANT OSSEOUS CENTRAL CANAL OR NEURAL FORAMINAL STENOSIS. Reading Location: [id number] Chest CT 02/23/25 12:18 IMPRESSION: Coronary artery calcification (CAC) is is present Small right pleural effusion with right basilar atelectasis and/or infiltrate. Focal infiltrate with nodular densities in the right upper lobe abutting the right minor fissure. Follow-up recommended. Reading Location: [id number] Assessment & Plan Assessment/Plan (1) Syncope: PLAN: Plan The patient is a 74 y/o M w/ PMHx: Anxiety and Depression, Former tobacco use, Chronic anemia, CKD stage II per GFR trending, AAA, HTN, HLD, GERD, Chronic Hypoxic Respiratory Failure (2L NC) secondary to COPD who presents to the [facility] ED on 02/23/25 with history of syncopal events noting that he had been up to try to use the restroom when he had a syncopal events with witnesses noting that he felt off and flushed just before he passed out unfortunately hitting a piece of furniture, striking his left lower ribs as well as under his chin. Patient does have chronic issues with lightheadedness and dizziness and has had syncopal events in the past. #1. Syncopal Event, notably orthostatic: Unclear etiololgy, EKG in ED w/ sinus rhythm without evidence of acute ischemia, CT head/CT cervical spine with no acute findings, CT chest with no rib fractures with a small right pleural effusion with right basilar atelectasis, possible focal infiltrate with nodular densities in the right upper lobe of unclear significance, initial trop 18. Will admit to PCU, place on a monitored bed to assure no acute myocardial infarction with serial cardiac enzymes and EKGs. Will maintain on fall precautions, ED orthostatics positive, will need to repeat in AM, continue to hydrate, will obtain ECHO. PT/OT consultation to ascertain stability and discharge needs. #2. Chronic COPD with chronic hypoxic respiratory failure with abnormal CT chest: No recent significant cough, fever, chills, dyspnea or hypoxia above baseline despite CT chest findings with noted small right pleural effusion, right basilar atelectasis, questionable infiltrate with nodular density right upper lobe abutting the right minor fissure. Procalcitonin requested. Lower suspicion for pneumonia process however will be cautious and continue monitor and if any marked procalcitonin elevation, worsen dyspnea, cough onset or leukocytosis low threshold to initiate pneumonia evaluation and treatment, maintain on home oxygen supplementation, continue ATC duonebs, PRN albuterol, HOB, IS parameters. #3. Chart reported history AAA: Noted history, from review of imaging unable to find any CTA chest or any further AAA evaluation, will clarify to be certain. Continued on baby aspirin, statin therapy, not on any hypertensive regimen. #4. Anxiety and depression: Will continue patient home escitalopram regimen. #5. Hypertension: Noted history, not on current regimen per list but clarified to be certain, will avoid addition at this time given severity of orthostasis, appearing IV hydralazine in the interim. #6. Hyperlipidemia: Will continue patient on statin therapy. #7. Chronic normocytic anemia: Admission hemoglobin 0.3, MCV 82.1, baseline hemoglobin appears 11-12 range, stable, continue to trend. #8. Chronic Kidney Disease Stage II per GFR trending: Admission BUN/Cr 11/0.69, GFR currently 96 however primarily stage II level range, baseline renal function primarily 0.9-1.2, most recently previous to this 02/10/2025 creatinine 0.91, repeat BMP in AM. #9. Former tobacco use: Encourage continued tobacco cessation. #10. Severe protein calorie malnutrition: Evidenced per reduced BMI, notable fat/muscle loss, nutrition consulted. #11. DVT prophylaxis: Lovenox. #12. CODE status: Patient MIRANDA is his eldest daughter and living will is currently in place. Discussed CODE status at length including difference between FULL code, DNR-CCA and DNR-CC status. Following discussions about the differences in these status, requested Full Code status. Advanced Care Planning Face to Face Time: 16 minutes. Charges/Coding Visit Charges Inpatient E&M: 35990 Init Hosp L2 Procedures Hospitalists Procedures: 03493 Advncd Care Plan 30 Min
[2025-02-23 15:51] LABS: Troponin T High Sens 2 HR 15 ng/L (<=22)
[2025-02-23 17:09] LABS: Troponin T High Sens 4 HR 18 ng/L (<=22)
[2025-02-23 17:39] LABS: Magnesium 2.2 mg/dL (1.5-2.2); Procalcitonin 0.11 ng/mL (<=0.10)
[2025-02-23] MEDS: Mag Hydrox/Al Hydrox/Simeth 30 ML UDC PO (18:17)
[2025-02-23] MEDS: 0.9% Normal Saline (1000mL) 1,000 ML 125 ML IV (18:20)
[2025-02-23] MEDS: Ipratropium/Albuterol Sulfate 3 ML AMPUL.NEB INHALATION (19:50)
[2025-02-23] MEDS: Acetaminophen 325 MG Tablet 650 MG PO (20:03)
[2025-02-24] VITALS (13 sets, daily range): BP systolic 68–126; BP diastolic 45–69; PULSE 67–105; RESP 16–18; TEMP 36–36.6; O2SAT 96–100; BMI 14.3
[2025-02-24] MEDS: Acetaminophen 325 MG Tablet 650 MG PO ×2 (00:06→06:32)
[2025-02-24] MEDS: MENTHOL 226.8 GM JAR 1 APPLIC TOPICAL ×2 (02:03→06:30)
[2025-02-24] MEDS: 0.9% Normal Saline (1000mL) 1,000 ML 125 ML IV (02:03)
[2025-02-24] MEDS: 0.9% Saline Lock 10 ML Syringe IV ×2 (06:33→16:37)
[2025-02-24] MEDS: Ipratropium/Albuterol Sulfate 3 ML AMPUL.NEB INHALATION ×3 (07:18→19:29)
[2025-02-24 07:20] LABS: Absolute Lymphocyte Count 0.64 X10^3/uL (0.83-4.51); Absolute Neutrophil Count 4.8 X10^3/uL (2.0-7.7); Basophil# 0.01 X10^3/uL; Basophil% 0.2 % (0-1); Eosinophil# 0.04 X10^3/uL; Eosinophils% 0.7 % (0-5); Hematocrit 31.2 % (40-54); Hemoglobin 9.8 g/dL (13.0-16.5); Lymphocyte # 0.64 X10^3/ul (0.83-4.51); Lymphocyte % 10.9 % (19-41); Mean Corp Hgb Conc 31.4 g/dL (32-36); Mean Corpuscular Volume 82.8 fL (80-94); Mean Platelet Vol. 10.2 fl (6.2-12.0); Monocyte# 0.35 X10^3/uL; Monocyte% 5.9 % (0-10); NRBC Flagged by Analyzer 0 % (0-5); Neutrophil # 4.83 X10^3/uL (2.7-7.7); Platelet Count 376 K/mm3 (150-450); RBC Distribution Width CV 16.6 % (11.6-14.6); RBC Distribution Width SD 50.3 fl (35.1-43.9); Red Blood Count 3.77 M/mm3 (4.6-6.2); White Blood Count 5.9 K/mm3 (4.4-11.0)
[2025-02-24 07:42] LABS: ALB/GLOB Ratio 0.8 RATIO (0.9-2.4); AST(SGOT) 20 U/L (<=37); Alanine Aminotransfer ALT/SGPT 10 U/L (<=46); Albumin, Serum 2.7 g/dL (3.4-4.8); Alkaline Phosphatase 101 U/L (40-129); Anion Gap 7 (5-15); BUN 12 mg/dL (4-19); BUN/Creat Ratio 17.6 RATIO (10-20); Calcium,Total 9.1 mg/dL (7.6-11.0); Carbon Dioxide 27.1 mmol/L (21.0-32.0); Chloride 96 mmol/L (98-108); Creatinine, Serum 0.69 mg/dL (0.70-1.20); EST Glomerular Filtration Rate 96 (>60); Estimated Creatinine Clearance 52.33 ml/min (50-250); Globulin 3.4 g/dL (2.2-4.2); Glucose 82 mg/dL (70-99); Potassium 3.8 mmol/L (3.3-5.1); Protein, Total 6.1 g/dL (5.9-8.4); Sodium Level 131 mmol/L (133-145); Total Bilirubin 0.28 mg/dL (0.00-1.30)
--- NOTE | 2025-02-24 10:07 | CASEMGMT ---
Addendum entered by Patricia Flores 02/24/25 11:24: Pt is active with SN/PT/OT/[facility]ER/[facility] HARVESTER. Patricia Flores DC Planning Asst. Original Note: Discharge Planning Resumption referral sent to [facility] with request for confirmation of services receiving. Patricia Flores DC Planning Asst
[2025-02-24] MEDS: Aspirin E.C. 81 MG Tablet PO (10:19)
[2025-02-24] MEDS: Escitalopram Oxalate 10 MG Tablet PO (10:19)
[2025-02-24] MEDS: Enoxaparin 40 MG/0.4 ML Syringe SC (10:21)
--- NOTE | 2025-02-24 11:17 | WOUNDNOTE ---
wound photo: bharat
[2025-02-24] MEDS: 0.9% Normal Saline (1000mL) 1,000 ML 999 ML IV (12:53)
--- NOTE | 2025-02-24 13:50 | CASEMGMT ---
GERMAIN SMITH Assessment Face to Face with patient for initial transition planning/care coordination assessment. GERMAIN SMITH introduced self and role at [facility], pt voices understanding. Pt is A&Ox4 and is resting comfortably in bed and is calm. Care providers, pharmacy, and demographics verified. Admitting dx: Syncopal Event LACE Strata: 3 PCP: Brent Martinez Specialists: Denies Preferred Pharmacy: [facility] Insurance: [place], [facility] Prescription Benefit: Yes LNOK: Karla (Daughter) Living Arrangements: Pt lives alone in a single story home with 2 steps to enter without handrails. Pt states that his GS has been staying with him and plans to continue to provide support ADLs/IADLs: Pt states that he is independent at baseline but has recently been requiring assistance through his GS Transportation:Daughter, GS, denies concerns DME: Pt reports that he was recently set up with new home oxygen. Pt is unsure of the DME company at this time. CM to follow. Pt states that he has a concentrator only and no portability at this time. Pt also reports that he has a FWW and Shower chair. HHC/SNF: Denies SNF. Pt is active with Vern (SN/PT/OT/COMPUTATIONAL BIOLOGIST/HEALTH SERVICES ADMINISTRATOR). HH has been helping care for the pt's wound. Pt?s goal: Home Plan: Anticipate Home with continuation of skilled HHC, follow for increased oxygen needs. Pt will need portability @ the time of DC. Per the pt's nurse, the pt's family is wanting the pt to go to a SNF before returning home to help the pt return to his PLOF. However, pt adamantly denies SNF needs and wants to DC home with the HHC. Pt denies any further questions or concerns at this time. Report given to SHAKE TABLE OPERATOR CM. Taco Spears RN, CM
--- NOTE | 2025-02-24 13:58 | CASEMGMT ---
Met with patient to complete ALDRICH form. ALDRICH form explained to patient who voiced understanding and signed form. Original form placed in pt?s chart and copy provided to patient. Patricia Flores, Discharge Planning Asst
--- NOTE | 2025-02-24 14:53 | CASEMGMT ---
Addendum entered by Norma Archuleta 02/24/25 15:10: Received tc from Eli nurse at Dr. Martinez's office who states she looked in pt chart and she can only see where ordered portability for oxygen through [facility]. She does not see the concentrator or liter flow. Original Note: TC to pt dtr who called in stating pt cannot return home and needs to go to SNF. She states they are coming in tonight at 4pm to discuss with pt. Noted therapy evals. She states pt does have oxygen at home but does not know the company it is from nor if pt has portability. TC to 's office to try to find this information out and liter flow, left vm for nurse. TC to [facility], spoke with Chika who states that they did receive an order but it was incomplete, so no delivery was made. GERMAIN SMITH to follow.
--- NOTE | 2025-02-24 15:37 | CHAPLAIN ---
Type of Pastoral Visit _x__ Initial Visit ___ Follow-up Visit ___ On-call Visit ___ General Patient Visit ___ Spiritual Assessment ___ Family Conference ___ Bereavement ___ Rapid Response ___ Code Blue ___ Other (describe below) Pastoral Care Referral From _x__ Patient ___ Family ___ Nurse ___ Physician ___ Wet Trimmer ___ Spooling Operator ___ Other (describe below) Sacrament/Intervention _x__ Active listening ___ Anointing ___ Denominational ___ Bereavement ___ Communion _x__ Celia exploration ___ ___ Life review _x__ Prayer ___ Reconciliation ___ Sacrament of Sick _x__ Supportive presence ___ Wedding ___ Other (describe below) Pastoral Comments patient is not quite sure what happened but that he is feeling better now; pt says that a grandson lives with him but that grandson was not home when he passed out and fell to the floor; pt is member of a local yarsani and has a positive outlook for himself; pt welcomes a prayer
[2025-02-24] MEDS: Midodrine HCl 5 MG Tablet 10 MG PO (16:30)
[2025-02-24] MEDS: Ensure Plus High Protein 120 ML LIQUID PO (16:33)
[2025-02-24] MEDS: 0.9% Normal Saline (1000mL) 1,000 ML 100 ML IV (17:33)
--- NOTE | 2025-02-24 19:35 | PCM.PN.HOSP ---
Reason for Visit Reason for Visit: Diagnoses Syncope and collapse (02/24/25) Subjective Subjective Patient was seen and examined today, he has been orthostatic today and I elected to place an IV after giving the fluid bolus without resolution of the hypotension. I also placed the patient on midodrine. Patient's family wants him to go to a rehab facility for short-term rehab services. Objective Data Objective Data Vital Signs: Vital Signs Temp Pulse Resp BP Pulse Ox O2 Del Method O2 Flow Rate 97.7 F L 86 18 114/66 96 Nasal Cannula 2 02/24/25 16:28 02/24/25 19:29 02/24/25 19:29 02/24/25 16:38 02/24/25 19:30 02/24/25 19:30 02/24/25 19:30 Oxygen Flow Rate (L/min) 2 Oxygen Delivery Method Nasal Cannula Weight: 47.1 kg Body Mass Index (BMI) 14.3 Intake & Output: Intake and Output for Last 24 Hours 02/22/25 02/23/25 02/24/25 23:59 23:59 23:59 Intake Total 1240 / 1240 3272.91 / 3272.91 Output Total 150 / 150 950 / 950 Balance 1090 / 1090 2322.91 / 2322.91 Medical Nutrition Assessment Dietitian: Malnutrition Criteria Met Start: 02/24/25 10:36 Freq: Status: Active Protocol: Document 02/24/25 10:36 SB (Rec: 02/24/25 10:37 SB [id number]) Nutrition Malnutrition Evidence of Yes Malnutrition Exists Malnutrition (severe Chronic ): Evidenced By Suboptimal Energy Intake (Severe),Weight Loss (Severe), Physical Changes (Severe) Intake Problem Increased Nutrient Needs (specify) Etiology protein related to wound healing Signs/Symptoms as evidenced by pressure injury on coccyx Status Active Problem Clinical Problem Chronic Disease or Condition Related Malnutrition Etiology severe related to inadequate oral intake and increased energy expenditure likely due to COPD Signs/Symptoms as evidenced by 26% unintentional weight loss x 9 months, PO meeting <75% of estimated nutrition needs x 3 weeks, and muscle/fat wasting in clavicles, temples, and orbitals. Status Active Problem Recommendation Dietitian Adjust to liberal regular diet due to signs and Recommendations/ symptoms of malnutrition. Changes Will order 120ml chocolate EPHP 4x daily with medpass. Will order fruit punch saul BID with breakfast and dinner to promote wound healing. If PO intake and weight continue to decline, recommend nutrition support. Will monitor weight trends. Lab / Micro Data 02/24/25 06:44 02/24/25 06:44 Labs: Laboratory Results - last 24 hr 02/24/25 06:44: WBC 5.9, RBC 3.77 L, Hgb 9.8 L, Hct 31.2 L, MCV 82.8, MCH 26.0 L, MCHC 31.4 L, RDW Std Deviation 50.3 H, RDW Coeff of Wilbert 16.6 H, Plt Count 376, MPV 10.2, Immature Gran % (Auto) 0.300, Neut % (Auto) 82.0 H, Lymph % (Auto) 10.9 L, [place] % (Auto) 5.9, Eos % (Auto) 0.7, Baso % (Auto) 0.2, Absolute Neuts (auto) 4.8, Absolute Lymphs (auto) 0.64 L, Nucleated RBC % 0, Sodium 131 L, Potassium 3.8, Chloride 96 L, Carbon Dioxide 27.1, Anion Gap 7, BUN 12, Creatinine 0.69 L, Estim Creat Clear Calc 52.33, Est GFR (MDRD) Non-Af 96, BUN/Creatinine Ratio 17.6, Glucose 82, Calcium 9.1, Total Bilirubin 0.28, AST 20, ALT 10, Alkaline Phosphatase 101, Total Protein 6.1, Albumin 2.7 L, Globulin 3.4, Albumin/Globulin Ratio 0.8 L Rhythm Strip Rhythm Strip: Sinus Rhythm Rate: 62 Ectopy: None Physical Exam Const alert, oriented x3 and no apparent distress Constitutional Narrative: Patient appears frail and cachectic General Appearance: cooperative, well kempt and well developed Orientation / Consciousness: awake, oriented to person, oriented to place and oriented to time HEENT normocephalic, head/scalp atraumatic and moist oral mucous membranes Eyes PERRL, EOMs intact bilaterally and conjunctivae normal Neck supple, no JVD, thyroid normal and no carotid bruits General: trachea midline Resp normal respiratory effort, no retractions, no use of accessory muscles and clear to auscultation bilaterally Auscultation: Negative for rales, rhonchi or wheezes Cardio regular rate, regular rhythm, S1 normal heart sound, S2 normal heart sound, no murmurs, no rub and no gallops GI normal to inspection, nondistended, normoactive bowel sounds, soft to palpation, non-tender and non-distended Extremity no clubbing, cyanosis or edema Skin no rashes or lesions noted General Skin Exam: no breakdown Neuro oriented x3, CN's II-XII intact bilaterally, moves all extremities, no focal motor deficits and no sensory deficits noted Sensorium / Orientation: awake and alert Speech: speech normal Psych affect normal Assessment & Plan Assessment/Plan (1) Syncope: PLAN: Plan 1. Syncope secondary to orthostatic hypotension-etiology of the hypotension is unknown at this time, patient will continue to receive IV fluids and I have placed the patient on midodrine. Patient's family would like temporary placement in a group home facility-I do not know if the patient will agree with this. #2 chronic hypoxic respiratory failure-patient uses oxygen at home, it is unclear what is setting is #3 hyperlipidemia-patient is on a statin as an outpatient #4 chronic depression-patient is on Lexapro Total clinical time spent by myself addressing the patient's medical issues, reviewing all of his data, and collaborating with patient's care team: 35 minutes Charges/Coding Visit Charges Inpatient E&M: 72768 Subs Hosp L2
[2025-02-24] MEDS: Pravastatin 40 MG Tablet PO (21:09)
[2025-02-25] VITALS (8 sets, daily range): BP systolic 80–128; BP diastolic 45–71; PULSE 77–120; RESP 17–20; TEMP 36.2–36.6; O2SAT 96–99; BMI 14.7
[2025-02-25] MEDS: 0.9% Normal Saline (1000mL) 1,000 ML 100 ML IV ×3 (03:40→22:56)
[2025-02-25] MEDS: Ipratropium/Albuterol Sulfate 3 ML AMPUL.NEB INHALATION ×2 (07:02→13:05)
[2025-02-25] MEDS: Midodrine HCl 5 MG Tablet 10 MG PO ×3 (08:52→16:22)
[2025-02-25] MEDS: Enoxaparin 40 MG/0.4 ML Syringe SC (08:52)
[2025-02-25] MEDS: Aspirin E.C. 81 MG Tablet PO (08:52)
[2025-02-25] MEDS: Escitalopram Oxalate 10 MG Tablet PO (08:52)
[2025-02-25] MEDS: Ensure Plus High Protein 120 ML LIQUID PO ×4 (10:02→21:59)
--- NOTE | 2025-02-25 10:48 | CASEMGMT ---
Social Work- SW met with pt and son to discuss discharge planning. Pt and son interested in information on SNF level of care for both [facility] and commercial MCR. SW provided education on both payor sources' avenues for referral and placement. Pt would like SNF lists for both payor sources. Pt son reports that pt was in a SNF 12 years ago and ultimately shortly after placement, which has been a concern of pt. SW provided support and empathetic, active listening. SW provided extensive information and education. A list of SNF providers including quality and resource use data and consistent with the patient?s preferred geographic region, medical needs, and insurance network were provided from the [employer] Guide. SW provided lists for MMO and [facility]. Pt and pt son will review list and make three selections. SW will follow for selections. LUISANA Hernandez
--- NOTE | 2025-02-25 11:00 | CASEMGMT ---
Spoke with pt dtr who states the data consultant side of pt oxygen is from [facility]. She states pt also has portable tanks in the home.
--- NOTE | 2025-02-25 13:50 | CASEMGMT ---
RN CM into pt room, pt states he has chosen [facility] for his first choice of SNF and currently does not have any other choices. Updated SW.
--- NOTE | 2025-02-25 14:24 | PN.HOSP_ITS ---
Reason for Visit Reason for Visit: Diagnoses Syncope and collapse (02/24/25) Subjective Subjective Patient was seen and examined today, he is still orthostatic and I have elected to continue IV fluids at this time, patient is also on midodrine Objective Data Objective Data Vital Signs: Vital Signs Temp Pulse Resp BP Pulse Ox O2 Del Method O2 Flow Rate 97.8 F 82 20 H 112/68 97 Nasal Cannula 2 02/25/25 08:47 02/25/25 13:05 02/25/25 13:05 02/25/25 08:47 02/25/25 08:47 02/25/25 10:00 02/25/25 12:20 Oxygen Flow Rate (L/min) 2 Oxygen Delivery Method Nasal Cannula Weight: 48.6 kg Body Mass Index (BMI) 14.7 Intake & Output: Intake and Output for Last 24 Hours 02/23/25 02/24/25 02/25/25 23:59 23:59 23:59 Intake Total 1240 / 1240 3272.91 / 3272.91 2660 / 2660 Output Total 150 / 150 950 / 1675 3000 / 3000 Balance 1090 / 1090 2322.91 / 1597.91 -340 / -340 Medical Nutrition Assessment Dietitian: Malnutrition Criteria Met Start: 02/24/25 10:36 Freq: Status: Active Protocol: Document 02/24/25 10:36 SB (Rec: 02/24/25 10:37 SB [id number]) Nutrition Malnutrition Evidence of Yes Malnutrition Exists Malnutrition (severe Chronic ): Evidenced By Suboptimal Energy Intake (Severe),Weight Loss (Severe), Physical Changes (Severe) Intake Problem Increased Nutrient Needs (specify) Etiology protein related to wound healing Signs/Symptoms as evidenced by pressure injury on coccyx Status Active Problem Clinical Problem Chronic Disease or Condition Related Malnutrition Etiology severe related to inadequate oral intake and increased energy expenditure likely due to COPD Signs/Symptoms as evidenced by 26% unintentional weight loss x 9 months, PO meeting <75% of estimated nutrition needs x 3 weeks, and muscle/fat wasting in clavicles, temples, and orbitals. Status Active Problem Recommendation Dietitian Adjust to liberal regular diet due to signs and Recommendations/ symptoms of malnutrition. Changes Will order 120ml chocolate EPHP 4x daily with medpass. Will order fruit punch saul BID with breakfast and dinner to promote wound healing. If PO intake and weight continue to decline, recommend nutrition support. Will monitor weight trends. Lab / Micro Data 02/24/25 06:44 02/24/25 06:44 Rhythm Strip Rhythm Strip: Sinus Rhythm Rate: 62 Ectopy: None Physical Exam Narrative alert, oriented x3 and no apparent distress Constitutional Narrative: Patient appears frail and cachectic General Appearance: cooperative, well kempt and well developed Orientation / Consciousness: awake, oriented to person, oriented to place and oriented to time HEENT normocephalic, head/scalp atraumatic and moist oral mucous membranes Eyes PERRL, EOMs intact bilaterally and conjunctivae normal Neck supple, no JVD, thyroid normal and no carotid bruits General: trachea midline Resp normal respiratory effort, no retractions, no use of accessory muscles and clear to auscultation bilaterally Auscultation: Negative for rales, rhonchi or wheezes Cardio regular rate, regular rhythm, S1 normal heart sound, S2 normal heart sound, no murmurs, no rub and no gallops GI normal to inspection, nondistended, normoactive bowel sounds, soft to palpation, non-tender and non-distended Extremity no clubbing, cyanosis or edema Skin no rashes or lesions noted General Skin Exam: no breakdown Neuro oriented x3, CN's II-XII intact bilaterally, moves all extremities, no focal motor deficits and no sensory deficits noted Sensorium / Orientation: awake and alert Speech: speech normal Psych affect normal Assessment & Plan Assessment/Plan (1) Syncope: PLAN: Plan 1. Syncope secondary to orthostatic hypotension-etiology of the hypotension is unknown at this time, patient will continue to receive IV fluids and I have placed the patient on midodrine. Patient has agreed to go to a half-way facility for short-term rehab services. This will need to be set up next week #2 chronic hypoxic respiratory failure-patient uses oxygen at home at 2 L/min #3 hyperlipidemia-patient is on a statin as an outpatient #4 chronic depression-patient is on Lexapro Total clinical time spent by myself addressing the patient's medical issues, reviewing all of his data, and collaborating with patient's care team: 35 minutes Charges/Coding Visit Charges Inpatient E&M: 50915 Subs Hosp L2
--- NOTE | 2025-02-25 17:32 | NURSING ---
Patient had feeling of bladder fullness and unable to urinate much. Bladder scanned patient. Scan showed anywhere from 433ml to 536ml. Patient stated he wanted to wait and try to void. RN and SOCIAL SERVICES assisted patient to stand at bedside to attempt to urinate. Patient still unable to void. RN went to get supplies for straight cath since patient has prn order. When RN came back, patient stated that he had urinated a little bit. Urinal emptied with 100ml of yellow urine. Patient stated that he wanted to continue to wait to see if he could void later as he felt some relief. Straight cath supplies at bedside. RN will give the patient some more time prior to straight cath.
[2025-02-25] MEDS: Tamsulosin HCl 0.4 MG Capsule 0.8 MG PO (19:00)
--- NOTE | 2025-02-25 19:55 | NURSING ---
Patient straight catheterized with coude, per order, for 550ml.
[2025-02-25] MEDS: Pravastatin 40 MG Tablet PO (22:00)
[2025-02-25] MEDS: MELATONIN 3 MG TABLET 6 MG PO (22:55)
[2025-02-26] VITALS (7 sets, daily range): BP systolic 76–122; BP diastolic 45–65; PULSE 84–124; RESP 16–20; TEMP 36.7–36.8; O2SAT 95–98; BMI 14.6
[2025-02-26] MEDS: Ipratropium/Albuterol Sulfate 3 ML AMPUL.NEB INHALATION ×3 (07:04→20:47)
[2025-02-26] MEDS: 0.9% Normal Saline (1000mL) 1,000 ML 100 ML IV ×2 (09:33→19:59)
[2025-02-26] MEDS: Escitalopram Oxalate 10 MG Tablet PO (09:35)
[2025-02-26] MEDS: Midodrine HCl 5 MG Tablet 10 MG PO ×3 (09:35→17:36)
[2025-02-26] MEDS: Aspirin E.C. 81 MG Tablet PO (09:35)
[2025-02-26] MEDS: Enoxaparin 40 MG/0.4 ML Syringe SC (09:36)
--- NOTE | 2025-02-26 10:57 | PN.HOSP_ITS ---
Reason for Visit Reason for Visit: Diagnoses Syncope and collapse (02/24/25) Subjective Subjective Patient was seen and examined today, he was able to void and does not have a Ortega catheter at this time. Patient still remains orthostatic. Objective Data Objective Data Vital Signs: Vital Signs Temp Pulse Resp BP Pulse Ox O2 Del Method O2 Flow Rate 98.0 F 85 17 104/58 L 97 Nasal Cannula 2 02/26/25 09:22 02/26/25 09:22 02/26/25 09:22 02/26/25 09:22 02/26/25 09:22 02/26/25 09:44 02/26/25 09:44 Oxygen Flow Rate (L/min) 2 Oxygen Delivery Method Nasal Cannula Weight: 48.6 kg Body Mass Index (BMI) 14.7 Intake & Output: Intake and Output for Last 24 Hours 02/24/25 02/25/25 02/26/25 23:59 23:59 23:59 Intake Total 3272.91 / 3272.91 3570 / 3570 1000 / 1000 Output Total 950 / 1675 4500 / 4500 1200 / 1200 Balance 2322.91 / 1597.91 -930 / -930 -200 / -200 Medical Nutrition Assessment Dietitian: Malnutrition Criteria Met Start: 02/24/25 10:36 Freq: Status: Active Protocol: Document 02/24/25 10:36 SB (Rec: 02/24/25 10:37 SB [id number]) Nutrition Malnutrition Evidence of Yes Malnutrition Exists Malnutrition (severe Chronic ): Evidenced By Suboptimal Energy Intake (Severe),Weight Loss (Severe), Physical Changes (Severe) Intake Problem Increased Nutrient Needs (specify) Etiology protein related to wound healing Signs/Symptoms as evidenced by pressure injury on coccyx Status Active Problem Clinical Problem Chronic Disease or Condition Related Malnutrition Etiology severe related to inadequate oral intake and increased energy expenditure likely due to COPD Signs/Symptoms as evidenced by 26% unintentional weight loss x 9 months, PO meeting <75% of estimated nutrition needs x 3 weeks, and muscle/fat wasting in clavicles, temples, and orbitals. Status Active Problem Recommendation Dietitian Adjust to liberal regular diet due to signs and Recommendations/ symptoms of malnutrition. Changes Will order 120ml chocolate EPHP 4x daily with medpass. Will order fruit punch saul BID with breakfast and dinner to promote wound healing. If PO intake and weight continue to decline, recommend nutrition support. Will monitor weight trends. Lab / Micro Data 02/24/25 06:44 02/24/25 06:44 Rhythm Strip Rhythm Strip: Sinus Rhythm Rate: 62 Ectopy: None Physical Exam Narrative alert, oriented x3 and no apparent distress Constitutional Narrative: Patient appears frail and cachectic General Appearance: cooperative, well kempt and well developed Orientation / Consciousness: awake, oriented to person, oriented to place and oriented to time HEENT normocephalic, head/scalp atraumatic and moist oral mucous membranes Eyes PERRL, EOMs intact bilaterally and conjunctivae normal Neck supple, no JVD, thyroid normal and no carotid bruits General: trachea midline Resp normal respiratory effort, no retractions, no use of accessory muscles and clear to auscultation bilaterally Auscultation: Negative for rales, rhonchi or wheezes Cardio regular rate, regular rhythm, S1 normal heart sound, S2 normal heart sound, no murmurs, no rub and no gallops GI normal to inspection, nondistended, normoactive bowel sounds, soft to palpation, non-tender and non-distended Extremity no clubbing, cyanosis or edema Skin no rashes or lesions noted General Skin Exam: no breakdown Neuro oriented x3, CN's II-XII intact bilaterally, moves all extremities, no focal motor deficits and no sensory deficits noted Sensorium / Orientation: awake and alert Speech: speech normal Psych affect normal Assessment & Plan Assessment/Plan (1) Syncope: PLAN: Plan 1. Syncope secondary to orthostatic hypotension-etiology of the hypotension is unknown at this time, patient will continue to receive IV fluids and I have placed the patient on midodrine. Patient has agreed to go to a [place] [facility] for [facility]-term rehab services. This will need to be set up next week #2 chronic hypoxic respiratory failure-patient uses oxygen at home at 2 L/min #3 hyperlipidemia-patient is on a statin as an outpatient #4 chronic depression-patient is on Lexapro Total clinical time spent by myself addressing the patient's medical issues, reviewing all of his data, and collaborating with patient's care team: 35 minutes Charges/Coding Visit Charges Inpatient E&M: 29096 Subs Hosp L2
[2025-02-26] MEDS: Ensure Plus High Protein 120 ML LIQUID PO ×2 (13:33→17:36)
[2025-02-26] MEDS: Tamsulosin HCl 0.4 MG Capsule 0.8 MG PO (17:36)
[2025-02-26] MEDS: Pravastatin 40 MG Tablet PO (21:59)
[2025-02-27 04:00] VITALS: BP 130/61; PULSE 79; RESP 18; TEMP 36.3; O2SAT 95
[2025-02-27] MEDS: 0.9% Normal Saline (1000mL) 1,000 ML 100 ML IV (05:38)
[2025-02-27 06:00] VITALS: BMI 15.4
[2025-02-27 07:14] VITALS: PULSE 69; RESP 18
[2025-02-27] MEDS: Ipratropium/Albuterol Sulfate 3 ML AMPUL.NEB INHALATION ×2 (07:14→13:28)
--- NOTE | 2025-02-27 09:09 | CASEMGMT ---
Addendum entered by Aleida Hernandez 02/27/25 11:32: CHUY called patient's daughter Karla letting her know about TCU accepting patient. Aleida PEDRO Original Note: Patient was accepted in TCU. Per Elin patient has Medicare and can go to TCU whenever medically ready. CHUY notified physician, patient, and patient's daughter per patient's request. Plan: [facility] TCU when medically ready. Aleida PEDRO
[2025-02-27 09:17] VITALS: BP 122/64; PULSE 86; RESP 16; TEMP 36.5; O2SAT 96
[2025-02-27] MEDS: Enoxaparin 40 MG/0.4 ML Syringe SC (09:23)
[2025-02-27] MEDS: Aspirin E.C. 81 MG Tablet PO (09:23)
[2025-02-27] MEDS: Escitalopram Oxalate 10 MG Tablet PO (09:23)
[2025-02-27] MEDS: Midodrine HCl 5 MG Tablet 10 MG PO ×2 (09:23→12:27)
[2025-02-27] MEDS: Ensure Plus High Protein 120 ML LIQUID PO ×2 (09:23→14:03)
[2025-02-27] MEDS: Menthol/Lanolin/Calamine/Znox 113 GM Tube 1 APPLIC TOPICAL ×2 (09:24→14:03)
--- NOTE | 2025-02-27 11:10 | PCM.TXEXTCAR ---
Diet Diet Order/Speech Therapy: 02/24/25 15:01 Diet: Regular - General Type of Dietary Supplement:: Sam Diet Comments: fruit punch sam BID with breakfast and dinner Routine Orders/Code Status Code Status: Full Code DC O2, CPAP, BIPAP needs Home O2 Discharge instructions: Yes Type of respiratory needs?: Oxygen Oxygen frequency: Continuous Continuous oxygen liters per minute: 2 L Wound(s) coccyx: Wound Type: Pressure Injury Dressing Change: foam dressing Rt collar bone: Wound Type: Skin Tear Therapies Weight Bearing: Full weight bearing Physical Therapy: Eval and Treat Occupational Therapy: Eval and Treat Problem/Diagnosis (1) Syncope: Status: Acute Code(s): R55 - Syncope and collapse Plan 1. Syncope secondary to orthostatic hypotension-etiology of the hypotension is unknown at this time, patient will continue to receive IV fluids and I have placed the patient on midodrine. Patient has agreed to go to a group home facility for short-term rehab services. This will need to be set up next week #2 chronic hypoxic respiratory failure-patient uses oxygen at home at 2 L/min #3 hyperlipidemia-patient is on a statin as an outpatient #4 chronic depression-patient is on Lexapro Total clinical time spent by myself addressing the patient's medical issues, reviewing all of his data, and collaborating with patient's care team: 35 minutes Allergies/Procedures Done in Hospital Allergies No Known Allergies Allergy (Verified 02/10/25 13:20) Procedures: None Type of Care/Length of Stay Estimated LOS: Convalescent Care Less Than 30 days Type of Care Needed: Skilled Rehab Potential: Good Prognosis: Good Additional Orders/Day of Discharge H&P will serve as current which was dated: 02/23/25 Day of Discharge: 02/27/25 Dietary and Speech Recommendations Dietitian Recommendations/Changes: Continue liberal regular diet due to signs and symptoms of malnutrition. Continue 120ml chocolate EPHP 4x daily with medpass. Continue fruit punch sam BID with breakfast and dinner to promote wound healing. If PO intake and weight continue to decline, recommend nutrition support. Will monitor weight trends. Discharge Plan Admission Admit Date/Time: 02/24/25 17:13 Primary Reason for Your Visit: Low blood pressure, syncope Attending Provider: Norm Lujan Primary Care Provider: Brent Martinez Consulting Providers: White,Rajani L Discharge Orders/Prescriptions Prescriptions: New acetaminophen 325 mg Tablet 650 mg PO Q4H PRN PRN (Reason: Fever, pain 1-07/21) Qty: 0 0RF ipratropium-albuterol 0.5 mg-3 mg(2.5 mg base)/3 mL Solution For Nebulization 3 ml inhalation Q6HWA.RT Qty: 0 0RF albuterol sulfate 2.5 mg /3 mL (0.083 %) Solution For Nebulization 2.5 mg inhalation Q2H PRN PRN (Reason: Dyspnea, wheezing) Qty: 0 0RF midodrine 5 mg Tablet 10 mg PO TIDCM Qty: 0 0RF tamsulosin 0.4 mg Capsule 0.8 mg PO DAILY@1730 Qty: 0 0RF Ensure Plus High Protein 0.08 gram-1.5 kcal/mL Liquid 120 ml PO 4X/DAY Qty: 0 0RF Continued aspirin [Adult Low Dose Aspirin] 81 mg tablet,delayed release (DR/EC) 81 mg PO DAILY pravastatin 40 MG tablet 40 mg PO QHS Patient Comments: TAKE 1 TABLET EVERY DAY escitalopram oxalate 10 mg tablet 10 mg PO DAILY Discontinued albuterol sulfate 90 mcg/actuation HFA aerosol inhaler 2 puff inhalation Q4H PRN PRN (Reason: wheezing) Referrals / Follow Up: Brent Martinez DO [Primary Care Provider] - Disposition Disposition (needs filled in before D/C Order can be placed): [facility]
[2025-02-27 11:23] VITALS: BP 129/67; BP 93/52; BP 95/54; PULSE 110; PULSE 86; PULSE 92
[2025-02-27 13:20] VITALS: PULSE 71; RESP 17
--- NOTE | 2025-02-27 13:51 | PCM.DC.SUM ---
Providers Date of Admission: 02/24/25 Date of Discharge: 02/27/25 Primary Care Physician: Dr. 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 Syncope secondary to orthostatic hypotension-etiology of the hypotension is unknown at this time, patient will continue to receive IV fluids and I have placed the patient on midodrine. Patient has agreed to go to a [facility] facility for short-term rehab services. This will need to be set up next week #2 chronic hypoxic respiratory failure-patient uses oxygen at home at 2 L/min #3 hyperlipidemia-patient is on a statin as an outpatient #4 chronic depression-patient is on Lexapro Total clinical time spent by myself addressing the patient's medical issues, reviewing all of his data, and collaborating with patient's care team: 35 minutes Medications at Discharge Home Medications pravastatin 40 mg tablet 40 mg PO QHS high cholesterol 01/16/18 aspirin 81 mg tablet,delayed release (Adult Low Dose Aspirin) 81 mg PO DAILY heart health 08/17/18 escitalopram oxalate 10 mg tablet 10 mg PO DAILY depression 02/23/25 acetaminophen 325 mg tablet 650 mg (2 x 325 mg) PO Q4H PRN PRN Fever, pain 1-07/21 #0 tabs 02/27/25 albuterol sulfate 2.5 mg/3 mL (0.083 %) solution for nebulization 2.5 mg (3 mL) inhalation Q2H PRN PRN Dyspnea, wheezing #0 mL 02/27/25 food supplemt, lactose-reduced 0.08 gram-1.5 kcal/mL oral liquid (Ensure Plus High Protein) 120 ml PO 4X/DAY supplement #0 mL 02/27/25 ipratropium 0.5 mg-albuterol 3 mg (2.5 mg base)/3 mL nebulization soln 3 ml inhalation Q6HWA.RT dyspnea/wheezing #0 mL 02/27/25 midodrine 5 mg tablet 10 mg (2 x 5 mg) PO TIDCM blood pressure #0 tabs 02/27/25 tamsulosin 0.4 mg capsule 0.8 mg (2 x 0.4 mg) PO DAILY@1730 prostate #0 caps 02/27/25 Hospital Course Operations None Procedures None Summary of Care Provided Minutes Spent on Discharge: 31 Hospital Course: This 74-year-old white male was seen in the emergency room at [facility] with an episode of syncope. Patient stated he got up to use the restroom and passed out. Patient had a piece of furniture and struck his left lower ribs as well as the underside of his chin. Patient had a history of multiple episodes of syncope in the past which had not been explained. Labs obtained were remarkable for hemoglobin of 11.3, white blood cell count was normal, chemistry profile was unremarkable. Urinalysis was unremarkable. Imaging studies included a brain CT that showed no acute acute intracranial pathology, cervical spine CT showed degenerative changes, and chest CT showed coronary artery calcification with a small right pleural effusion with right basilar atelectasis and or infiltrate, there is a questionable focal infiltrate in the right upper lobe abutting the right minor fissure. Patient was admitted to PCU, he was seen by PT and OT, he was noted to be orthostatic and given IV fluids which did not resolve the orthostasis. Patient was then placed on midodrine and fluids were continued, patient remained orthostatic but did not have symptoms of lightheadedness. Patient agreed to go to a [facility] facility for short-term rehab services and TCU accepted the patient. On 02/27/2025, patient was seen and examined: On examination he appeared cachectic. Vital signs as documented. Skin warm and dry and without overt rashes. Neck without JVD, neck was supple, trachea midline, thyroid was normal. Lungs clear bilaterally, normal air movement was noted. Heart exam notable for regular rhythm, normal sounds and absence of murmurs, rubs or gallops. Abdomen unremarkable and without evidence of organomegaly, masses, or abdominal aortic enlargement. Bowel sounds are present, abdomen is not distended. Extremities nonedematous, no cyanosis was noted, no clubbing was noted. Neuro: Cranial nerves II through XII are grossly intact, no focal motor deficits were noted, sensation to light touch and pinprick intact, motor exam 5/5 throughout. Psych: Patient is alert and oriented x3, he does not appear anxious or depressed, he does not appear agitated. Patient was transferred to TCU in stable condition on 02/27/2025. Medical Records Data Medical Nutrition Assessment Dietitian: Malnutrition Criteria Met Start: 02/24/25 10:36 Freq: Status: Active Protocol: Document 02/27/25 13:26 SB (Rec: 02/27/25 13:26 SB [id number]) Nutrition Malnutrition Evidence of Yes Malnutrition Exists Malnutrition (severe Chronic ): Evidenced By Suboptimal Energy Intake (Severe),Weight Loss (Severe), Physical Changes (Severe) Intake Problem Increased Nutrient Needs (specify) Etiology protein related to wound healing Signs/Symptoms as evidenced by pressure injury on coccyx Status Active Problem Clinical Problem Chronic Disease or Condition Related Malnutrition Etiology severe related to inadequate oral intake and increased energy expenditure likely due to COPD Signs/Symptoms as evidenced by 25% unintentional weight loss x 9 months, PO meeting <75% of estimated nutrition needs x 3 weeks, and muscle/fat wasting in clavicles, temples, and orbitals. Status Active Problem Recommendation Dietitian Continue liberal regular diet due to signs and symptoms Recommendations/ of malnutrition. Changes Continue 120ml chocolate EPHP 4x daily with medpass. Continue fruit punch saul BID with breakfast and dinner to promote wound healing. If PO intake and weight continue to decline, recommend nutrition support. Will monitor weight trends. Weight / BMI Weight Weight: 48.1 kg Body Mass Index (BMI) 15.4 ABG / Lab / Microbiology Data 02/24/25 06:44 02/24/25 06:44 D/C Instructions DC O2, CPAP, BIPAP Needs Home O2 Discharge instructions: Yes Type of respiratory needs?: Oxygen Oxygen frequency: Continuous Continuous oxygen liters per minute: 2 L DC home with Oxygen: Yes Home O2 MD Review: I have reviewed the oxygen testing, and the patient qualifies for home oxygen equipment and portability. The patient is mobile in the home and the community. Meaningful Use Info Meaningful Use Meaningful Use Diagnoses (Choose all that apply): None applicable Ischemic Stroke Statin Dosing Therapy Reference: STATIN DOSE THERAPY REFERENCE: * Patients > 75 years receive moderate or high dose statin therapy. * Patients 75 years or YOUNGER should receive HIGH intensity statin dose unless contraindicated. You will be required to document reason for non-treatment if statin daily dose does not meet guidelines. HIGH DOSE STATIN THERAPY DAILY Atorvastatin > than or = to 40 mg Rosuvastatin > than or = to 20 mg Amlodipine + Atorvastatin > than or = to 2.5/40 mg Ezetimibe + Simvastatin 10/80 mg Simvastatin 80mg Discharge Plan Admission Admit Date/Time: 02/24/25 17:13 Primary Reason for Your Visit: Low blood pressure, syncope Attending Provider: Norm Lujan Primary Care Provider: Brent Martinez Consulting Providers: Rajani Nina Discharge Orders/Prescriptions Prescriptions: New acetaminophen 325 mg Tablet 650 mg PO Q4H PRN PRN (Reason: Fever, pain 1-07/21) Qty: 0 0RF ipratropium-albuterol 0.5 mg-3 mg(2.5 mg base)/3 mL Solution For Nebulization 3 ml inhalation Q6HWA.RT Qty: 0 0RF albuterol sulfate 2.5 mg /3 mL (0.083 %) Solution For Nebulization 2.5 mg inhalation Q2H PRN PRN (Reason: Dyspnea, wheezing) Qty: 0 0RF midodrine 5 mg Tablet 10 mg PO TIDCM Qty: 0 0RF tamsulosin 0.4 mg Capsule 0.8 mg PO DAILY@1730 Qty: 0 0RF Ensure Plus High Protein 0.08 gram-1.5 kcal/mL Liquid 120 ml PO 4X/DAY Qty: 0 0RF Continued aspirin [Adult Low Dose Aspirin] 81 mg tablet,delayed release (DR/EC) 81 mg PO DAILY pravastatin 40 MG tablet 40 mg PO QHS Patient Comments: TAKE 1 TABLET EVERY DAY escitalopram oxalate 10 mg tablet 10 mg PO DAILY Discontinued albuterol sulfate 90 mcg/actuation HFA aerosol inhaler 2 puff inhalation Q4H PRN PRN (Reason: wheezing) Referrals / Follow Up: Brent Martinez DO [Primary Care Provider] - Disposition Disposition (needs filled in before D/C Order can be placed): Long-Term Facility Charges/Coding Visit Charges Inpatient E&M: 57127 Disch Hosp >30min
--- NOTE | 2025-02-27 14:16 | CASEMGMT ---
Discharge Planning Vern GAFFNEY notified that pt will have skilled stay prior to returning home. Patricia Flores DC Planning Asst.
--- NOTE | 2025-02-27 14:55 | CASEMGMT ---
CHUY called patient's daughter and let her know patient will be going to TCU today. Karla thanked CHUY for the notification. Plan: d/c to [facility] TCU under skilled level of care. Aleida PEDRO
--- NOTE | 2025-02-27 14:57 | WOUNDNOTE ---
wound photo: bharat
[2025-02-27 15:37] VITALS: BP 124/62; PULSE 82; RESP 17; TEMP 36.4; O2SAT 98
== END 2025-02-27 15:38 | disposition skilled nursing facility (03) | DRG 312 ==
LOC: ED 16:01 → PCU 16:37
PROVIDERS: Admitting Provider Family Medicine; Emergency Provider Emergency Medicine; PCP Family Medicine; Referring Provider Emergency Medicine; Visit Provider Internal Medicine
DX: I95.1 Orthostatic hypotension (principal); E43 Unspecified severe protein-calorie malnutrition; J96.11 Chronic respiratory failure with hypoxia; Z68.1 Body mass index [BMI] 19.9 or less, adult; L89.150 Pressure ulcer of sacral region, unstageable; E88.A Wasting disease (syndrome) due to underlying condition; D63.1 Anemia in chronic kidney disease; J44.9 Chronic obstructive pulmonary disease, unspecified; F32.A Depression, unspecified; I71.40 Abdominal aortic aneurysm, without rupture, unspecified; I12.9 Hypertensive chronic kidney disease with stage 1 through stage 4 chronic kidney disease, or unspecified chronic kidney disease; N18.2 Chronic kidney disease, stage 2 (mild); E78.5 Hyperlipidemia, unspecified; K21.9 Gastro-esophageal reflux disease without esophagitis; S41.111A Laceration without foreign body of right upper arm, initial encounter; Z99.81 Dependence on supplemental oxygen; Z87.891 Personal history of nicotine dependence; W22.09XA Striking against other stationary object, initial encounter; Z79.899 Other long term (current) drug therapy; Z79.02 Long term (current) use of antithrombotics/antiplatelets; Z79.82 Long term (current) use of aspirin; Z79.51 Long term (current) use of inhaled steroids
CPT/HCPCS: 36415; 70450; 71250; 72125; 80053; 81001; 83735; 84145; 84484; 85025; 93005; 94640; 94668; 97116; 97162; 97166; 97530; 97535; 97802; 97803; 99252; 99285; A4216; G0463

== ENCOUNTER 2025-02-27 15:45 | Inpatient (IN) | payer MEDICARE, OTHER, SELFPAY ==
[2025-02-27 15:58] VITALS: BP 130/74; PULSE 82; RESP 16; TEMP 36.3; O2SAT 98
[2025-02-27 16:07] VITALS: BMI 15.2
[2025-02-27 16:15] VITALS: PULSE 78; RESP 16; O2SAT 96
[2025-02-27] MEDS: Midodrine HCl 5 MG Tablet 10 MG PO (17:39)
[2025-02-27] MEDS: Tamsulosin HCl 0.4 MG Capsule 0.8 MG PO (17:39)
[2025-02-27] MEDS: Ensure Plus High Protein 120 ML LIQUID PO ×2 (17:39→20:55)
[2025-02-27 19:09] VITALS: PULSE 97; RESP 24
[2025-02-27] MEDS: Ipratropium/Albuterol Sulfate 3 ML AMPUL.NEB INHALATION (19:09)
[2025-02-27] MEDS: Pravastatin 40 MG Tablet PO (20:55)
[2025-02-27] MEDS: Senna/Docusate Sodium 1 Tablet PO (20:55)
--- NOTE | 2025-02-27 21:18 | HP.PCM_ITS ---
HPI - General General Date of Admission: 02/27/25 Date of Service: 02/27/25 Chief Complaint: Here for rehabilitation. HPI Narrative BUZZ PUGH, is a 74 Male who presents with followin02/23/2025 [facility] ED syncope. Syncope with injuries, got up to use bathroom, passed out. [place] flushed beforehand, hurt left lower ribs and chin. CT brain negative, CT chest right pleural effusion, right basilar atelectasis/infiltrate. Urinalysis + ketones, - infection. Orthostatics positive after 1 liter of IVF. 02/23/2025 Admit [facility]. Cardiac enzymes, Echo, IV fluids for syncope/orthostasis. Pneumonia unlikely. 02/24/2025 IV fluids, Midodrine for orthostatic hypotension. Family requested rehab. 02/25/2025 Still orthostatic, continue IV fluids, Midodrine. PT/OT SNF. 02/26/2025 Able to void, orthostasis persists. PT/OT SNF. 02/27/2025 Admit to TCU with debility, here for rehabilitation, strengthening, prior to discharge home alone. [facility] Medical History (Updated 02/27/25 @ 21:[address] Johnathan Davies MD) Kidney stones Former smoker On home oxygen therapy Anxiety and depression Chronic hypoxic respiratory failure COPD (chronic obstructive pulmonary disease) Former tobacco use Pneumothorax on right Pleural effusion on right Elevated blood pressure reading in office without diagnosis of hypertension (~2014) GERD (gastroesophageal reflux disease) Essential (primary) hypertension Hyperlipidemia Abdominal aortic aneurysm (AAA) Home Medications ?Medication ?Instructions ?Recorded ?Last Taken ?Type pravastatin 40 mg tablet 40 mg PO QHS high cholestero l 01/16/18 02/22/25 History aspirin 81 mg tablet,delayed 81 mg PO DAILY heart heal th 08/17/18 02/22/25 History release (Adult Low Dose Aspirin) escitalopram oxalate 10 mg tablet 10 mg PO DAILY depre ssion 02/23/25 02/22/25 History acetaminophen 325 mg tablet 650 mg (2 x 325 mg) PO Q4H PRN PRN 02/27/25 Unknown Rx Fever, pain 1-10/10 #0 tabs albuterol sulfate 2.5 mg/3 mL 2.5 mg (3 mL) inhalation Q2H PRN 02/27/25 Unknown Rx (0.083 %) solution for nebulization PRN Dyspnea, wheez ing #0 mL food supplemt, lactose-reduced 120 ml PO 4X/DAY supple ment #0 mL 02/27/25 Unknown Rx 0.08 gram-1.5 kcal/mL oral liquid (Ensure Plus High Protein) ipratropium 0.5 mg-albuterol 3 mg 3 ml inhalation Q6HW A.RT 02/27/25 Unknown Rx (2.5 mg base)/3 mL nebulization dyspnea/wheezing #0 mL soln midodrine 5 mg tablet 10 mg (2 x 5 mg) PO TIDCM bl ood 02/27/25 Unknown Rx pressure #0 tabs tamsulosin 0.4 mg capsule 0.8 mg (2 x 0.4 mg) PO DAILY @1730 02/27/25 Unknown Rx prostate #0 caps Allergy/AdvReac Type Severity Reaction Status Date / Time No Known Allergies Allergy Verified 02/10/25 13:20 Family History Father Heart disease Hypertension Myocardial infarction TAA Sister Hypertension Mother Hypertension Surgical History S/P AAA repair History of placement of chest tube History of ear surgery History of inguinal hernia repair Social History household members: none Smoking Status: Former smoker how long ago did patient quit smoking: Quit 08/26/2011. alcohol intake: never substance use type: does not use ROS Constitutional Constitutional: Denies chills, fever(s) or weight gain ENT HEENT: Denies headache(s), nasal congestion or nasal discharge Cardiovascular Cardiovascular: Denies chest pain or palpitations Respiratory/Chest Respiratory/Chest: Denies cough, excessive phlegm production or shortness of breath with exertion Gastrointestinal Gastrointestinal: Denies abdominal pain, nausea or vomiting Genitourinary Genitourinary: Denies dysuria Musculoskeletal Musculoskeletal: Denies joint pain or joint swelling Integumentary Integumentary: Denies rash or wounds Neurologic Neurologic: Denies focal weakness, numbness or tingling Psychiatric Psychiatric: Denies anxiety, auditory hallucinations, depression, homicidal ideation or suicidal ideation Vital Signs Vital Signs Vital Signs: 02/27/25 15:58 02/27/25 16:15 Temperature 97.4 F L Temperature Source Temporal Pulse Rate 82 78 Pulse Rhythm Regular Pulse Strength Normal (2+) Respiratory Rate 16 16 Respiratory Effort Normal Non-Labored Respiratory Depth Normal Respiratory Pattern Normal Blood Pressure 130/74 H Blood Pressure Mean 92 Blood Pressure Source Monitor Blood Pressure Position Semi-Fowlers Blood Pressure Location Right Arm Pulse Ox 98 96 Oxygen Delivery Method Nasal Cannula Nasal Cannula Oxygen Flow Rate (L/min) 2 2 Weight Weight: 49.47 kg Body Mass Index (BMI) 15.2 Physical Exam Const alert General Appearance: cooperative HEENT normocephalic Eyes PERRL and EOMs intact bilaterally Neck supple, no JVD and no carotid bruits Resp normal respiratory effort, normal air movement and clear to auscultation bilaterally Cardio regular rate and regular rhythm GI normal to inspection, nondistended, normoactive bowel sounds, non-tender and non-distended Extremity normal capillary refill General Extremity: Negative for edema Skin no rashes or lesions noted General Skin Exam: no breakdown Psych affect normal Appearance: appropriate Assessment & Plan Assessment/Plan (1) Debility: (2) Syncope: (3) Orthostatic hypotension: (4) Hyponatremia: (5) GERD (gastroesophageal reflux disease): (6) Essential (primary) hypertension: (7) Hyperlipidemia: (8) COPD (chronic obstructive pulmonary disease): (9) Depression: PLAN: Plan 74 year old male with below past medical history hospitalized for syncope 2/2 orthostatic hypotension, admitted to TCU with debility, here for rehabilitation, strengthening, prior to discharge home alone. * Debility - PT/OT. * Pain - Tylenol 1000mg q6 prn pain (1-10). * Bowel - Miralax 17gm daily, senna/colace 1 tablet bid, Magnesium citrate 300mL daily prn. * Adult immunization - Administer pneumonia vaccine, covid vaccine, flu vaccine as appropriate. * DVT prophylaxis - Hold, progressive anemia. * COPD - Duoneb 3mL neb q6wa, Albuterol 2.5mg neb q2h prn. * CV prophylaxis - Aspirin 81mg daily. * Adrenal insufficiency - Order ACTH stimulation test to rule out. * Nutrition - Ensure Plus 120mL 4x/day. * Skin irritation - Calmoseptine topical tid prn. * Orthostatic hypotension - Midodrine 10mg tidcm. * Hyperlipidemia - Pravastatin 40mg qhs. * BPH - Tamsulosin 0.8mg daily. * Progressive anemia - Hemoglobin 11.3 to 9.8, maybe dilutional, check hemoccult.
[2025-02-28] MEDS: 0.9% Saline Lock 10 ML Syringe IV ×2 (05:35→11:57)
[2025-02-28] MEDS: Cosyntropin 0.25 MG in 0.9% Normal Saline (Pres. free 4 ML 150 MG IV (05:35)
[2025-02-28 06:32] LABS: Absolute Lymphocyte Count 0.47 X10^3/uL (0.83-4.51); Absolute Neutrophil Count 4.2 X10^3/uL (2.0-7.7); Basophil# 0.01 X10^3/uL; Basophil% 0.2 % (0-1); Eosinophil# 0.07 X10^3/uL; Eosinophils% 1.4 % (0-5); Hematocrit 26.4 % (40-54); Hemoglobin 8.4 g/dL (13.0-16.5); Lymphocyte # 0.47 X10^3/ul (0.83-4.51); Lymphocyte % 9.3 % (19-41); Mean Corp Hgb Conc 31.8 g/dL (32-36); Mean Corpuscular Hgb 26.5 pg (27.0-32.0); Mean Corpuscular Volume 83.3 fL (80-94); Mean Platelet Vol. 10.3 fl (6.2-12.0); Monocyte# 0.28 X10^3/uL; Monocyte% 5.6 % (0-10); NRBC Flagged by Analyzer 0 % (0-5); Neutrophil # 4.19 X10^3/uL (2.7-7.7); Neutrophil % 83.1 % (47-70); POSITIVE DIFFERENTIAL YES; Platelet Count 321 K/mm3 (150-450); RBC Distribution Width CV 16.9 % (11.6-14.6); RBC Distribution Width SD 51.8 fl (35.1-43.9); Red Blood Count 3.17 M/mm3 (4.6-6.2)
[2025-02-28] MEDS: Ipratropium/Albuterol Sulfate 3 ML AMPUL.NEB INHALATION ×3 (06:56→20:05)
[2025-02-28 06:58] VITALS: PULSE 78; RESP 16; O2SAT 100
[2025-02-28 07:38] LABS: Anion Gap 8 (5-15); BUN 15 mg/dL (4-19); BUN/Creat Ratio 29.1 RATIO (10-20); Carbon Dioxide 30.1 mmol/L (21.0-32.0); Chloride 96 mmol/L (98-108); Creatinine, Serum 0.51 mg/dL (0.70-1.20); EST Glomerular Filtration Rate 105 (>60); Estimated Creatinine Clearance 54.97 ml/min (50-250); Glucose 91 mg/dL (70-99); Sodium Level 133 mmol/L (133-145)
[2025-02-28] MEDS: Midodrine HCl 5 MG Tablet 10 MG PO ×3 (08:15→17:10)
[2025-02-28] MEDS: Escitalopram Oxalate 10 MG Tablet PO (08:15)
[2025-02-28] MEDS: Aspirin E.C. 81 MG Tablet PO (08:15)
[2025-02-28 08:23] VITALS: BP 105/56; PULSE 91; RESP 18; TEMP 36.5; O2SAT 93
[2025-02-28 10:14] VITALS: BMI 15.2
[2025-02-28] MEDS: Tuberculin,Purif.prot.deriv. 50 TU/ML Vial 0.1 ML ID (11:55)
[2025-02-28] MEDS: Ensure Plus High Protein 120 ML LIQUID PO ×2 (11:55→17:11)
[2025-02-28] MEDS: Polyethylene Glycol 3350 17 GM PACKET PO (12:57)
[2025-02-28 13:01] VITALS: PULSE 85; RESP 16
[2025-02-28 13:30] VITALS: O2SAT 92
--- NOTE | 2025-02-28 13:35 | CASEMGMT ---
Social Work SW met with patient to complete initial assessment. Introduced self and role. Verified/updated contacts. Educated to Medicare benefit and copay coverage. Pt's goal is to return home at baseline. See SW assessment for details. SW will continue to follow for DC planning assistance. Ester Lord DRILL PRESS OPERATOR FOR METAL RN MDS
--- NOTE | 2025-02-28 15:39 | PCM.PN.DRR ---
Documented by User: Odette Gaston 02/28/25 16:00 TCU RX Drug Regimen Review Subjective/Objective Subjective/Objective Subjective: TCU Admission. 74 YOM presented to the ER with syncope. Hospitalized for syncope 2/2 orthostatic hypotension. Admitted to TCU with debility for strengthening and rehabilitation. Objective: Allergies No Known Allergies Allergy (Verified 02/10/25 13:20) Current Medications Generic Name Dose Route Start Last Admin Trade Name Freq PRN Reason Stop Dose Admin Acetaminophen 1,000 mg 02/27/25 21:26 Acetaminophen 500 Mg Tablet PO Q6H PRN PRN Pain Score 1-10 Albuterol Sulfate 2.5 mg 02/27/25 15:58 Albuterol 2.5 Mg/3 Ml Vial.Neb. INHALATION Q2H PRN PRN Dyspnea, wheezing Albuterol/Ipratropium 3 ml 02/27/25 16:00 02/28/25 12:59 Ipratropium/Albuterol Sulfate 3 Ml Ampul.Neb INHALATION 3 ml Q6HWA.RT AUGUSTIN Administration Aspirin 81 mg 02/28/25 08:00 02/28/25 08:15 Aspirin E.C. 81 Mg Tablet PO 81 mg BREAKFAST AUGUSTIN Administration Escitalopram Oxalate 10 mg 02/28/25 10:00 02/28/25 08:15 Escitalopram Oxalate 10 Mg Tablet PO 10 mg DAILY AUGUSTIN Administration Magnesium Citrate 300 ml 02/27/25 21:26 Magnesium Citrate 300 Ml PO DAILY PRN CONSTIPATION Menthol 1 applic 02/27/25 17:46 Menthol 226.8 Gm Jar TOPICAL TID PRN PRN joint pain Midodrine 10 mg 02/27/25 17:45 02/28/25 11:55 Midodrine Hcl 5 Mg Tablet PO 10 mg TIDCM AUGUSTIN Administration Nutritional Formula (Lactose Free) 120 ml 02/27/25 17:00 02/28/25 11:55 Ensure Plus High Protein 120 Ml Liquid PO 120 ml 4X/DAY AUGUSTIN Administration Polyethylene Glycol 17 gm 02/28/25 10:00 02/28/25 12:57 Polyethylene Glycol 3350 17 Gm Packet PO 17 gm DAILY AUGUSTIN Administration Pravastatin Sodium 40 mg 02/27/25 22:00 02/27/25 20:55 Pravastatin 40 Mg Tablet PO 40 mg QHS AUGUSTIN Administration Senna/Docusate Sodium 1 tablet 02/27/25 22:00 02/28/25 08:19 Senna/Docusate Sodium 1 Tablet PO Not Given BID AUGUSTIN Sodium Chloride 10 - 40 ml 02/27/25 16:00 02/28/25 11:57 0.9% Saline Lock 10 Ml Syringe IV 10 ml UD PRN Administration SALINE FLUSH Tamsulosin HCl 0.8 mg 02/27/25 17:30 02/27/25 17:39 Tamsulosin Hcl 0.4 Mg Capsule PO 0.8 mg DAILY@1730 AUGUSTIN Administration Tuberculin PPD 0.1 ml 03/07/25 10:00 Tuberculin,Purif.Prot.Deriv. 50 Tu/Ml Vial ID 03/07/25 10:01 X1 ONE Problem List (Updated 02/27/25 @ 21:[address] Johnathan Davies MD) Depression (Acute) COPD (chronic obstructive pulmonary disease) (Chronic) Essential (primary) hypertension (Acute) GERD (gastroesophageal reflux disease) (Acute) Debility (Acute) Syncope (Acute) Hyponatremia (Acute) Hyperlipidemia (Chronic) Vital Signs Temp Pulse Resp BP Pulse Ox O2 Del Method O2 Flow Rate 97.7 F L 85 16 105/56 L 92 Nasal Cannula 2 02/28/25 08:23 02/28/25 13:01 02/28/25 13:01 02/28/25 08:23 02/28/25 13:30 02/28/25 08:23 02/28/25 13:51 Oxygen Flow Rate (L/min) 2 Oxygen Delivery Method Nasal Cannula Weight: 49.487 kg Body Mass Index (BMI) 15.2 Sodium 133 mmol/L (133-145) 02/28/25 05:25 Potassium 4.0 mmol/L (3.3-5.1) 02/28/25 05:25 Chloride 96 mmol/L (98-108) L 02/28/25 05:25 Carbon Dioxide 30.1 mmol/L (21.0-32.0) 02/28/25 05:25 Anion Gap 8 (5-15) 02/28/25 05:25 BUN 15 mg/dL (4-19) 02/28/25 05:25 Creatinine 0.51 mg/dL (0.70-1.20) L 02/28/25 05:25 Est GFR (MDRD) Non-Af 105 (>60) 02/28/25 05:25 BUN/Creatinine Ratio 29.1 RATIO (10-20) H 02/28/25 05:25 Glucose 91 mg/dL (70-99) 02/28/25 05:25 Assessment/Plan: 1. Pain: acetaminophen 1000mg PO Q6H PRN pain 1-10 and menthol gel topical TID PRN joint pain. Please continue to monitor increased pain and PRN usage. No doses given. 2. Bowel: Miralax 17g PO daily, senna/docusate 1T PO BID and magnesium citrate 300mL PO daily PRN constipation. No PRN doses given. Please continue to monitor for constipation and PRN usage. Last documented bowel movement was 02/24/25. 3. CV prophylaxis: aspirin 81mg PO daily. Please continue to monitor for S/S of bleeding/heart attack and hemoglobin (last 8.4g/dL). 4. Orthostatic hypotension: midodrine 10mg PO TIDCM. Please continue to monitor BP (range 93-130/52-67). 5. COPD: Duoneb 3mL nebulized solution Q6HWA.RT and albuterol nebulized solution 2.5mg Q2H PRN dyspnea/wheezing. Resident has not used any PRN doses. 6. Hyperlipidemia: pravastatin 40mg PO QHS. Please consider ordering a lipid panel as there is no panel in the chart. Thanks. Please continue to monitor LFTs (last 02/24/25) and muscle pain. 7. BPH: tamsulosin 0.8mg PO daily. Please continue to monitor BP and for S/S of BPH. 8. Skin irritation: Calmoseptine topical tid prn. Please continue to monitor. Assessment/Plan for indications treated with psychotropic medications: 1. Major depression: escitalopram 10mg PO daily. Please see physician note regarding GDR. Monitor for diarrhea, nausea, headache, anxiety or drowsiness, suicidal thoughts or behaviors (Boxed Warning), symptoms of bleeding, symptoms of serotonin syndrome (including agitation, confusion, hyperreflexia, rigidity/myoclonus, tremor, tachycardia, tachypnea), sodium levels (last Na = 133mmol/L). Monitor for efficacy including resident symptoms, behaviors and indications of distress. Monitor for tolerability including mental status, cognition, excessive sleepiness, withdrawal or decreased participation in activities and decline in physical functioning. Maximize use of nonpharmacologic/behavioral interventions to facilitate dose reduction or discontinuation as appropriate. Please evaluate the appropriateness of GDR unless contraindicated. If appropriate, GDR should be attempted in 2 separate quarters within the first year of use or admission to TCU. If GDR attempted, monitor resident symptoms/behaviors. Medical chart and medication regimen reviewed. The following medication irregularities or issues were identified: 1. Pravastatin 40mg PO QHS. Please consider ordering a lipid panel as there is no panel in the chart. Thanks. Date Date of Note: 02/28/25 Documented by User: Dr. Johnathan Davies MD 02/28/25 17:16 TCU RX Drug Regimen Review Provider Comments Provider responsibility Provider Comments to Recommendations by Pharmacy Agree
--- NOTE | 2025-02-28 15:58 | CHAPLAIN ---
Type of Pastoral Visit ___ Initial Visit _x__ Follow-up Visit ___ On-call Visit ___ General Patient Visit ___ Spiritual Assessment ___ Family Conference ___ Bereavement ___ Rapid Response ___ Code Blue ___ Other (describe below) Pastoral Care Referral From _x__ Patient ___ Family ___ Nurse ___ Physician ___ Client Relationship Executive ___ Canoe Builder ___ Other (describe below) Sacrament/Intervention ___ Active listening ___ Anointing ___ Lutheran ___ Bereavement ___ Communion ___ Celia exploration ___ ___ Life review _x__ Prayer ___ Reconciliation ___ Sacrament of Sick _x__ Supportive presence ___ Wedding ___ Other (describe below) Pastoral Comments this is a follow up visit to patient that was seen last week in PCU; pt is awake but trying to rest; pt says that he is doing okay; offer of presence and prayer given; pt says that he doesn't need anything right now but would be glad to have a prayer spoken for him; prayer given and offer of future visits as desired by patient
[2025-02-28] MEDS: Tamsulosin HCl 0.4 MG Capsule 0.8 MG PO (17:10)
[2025-02-28] MEDS: Magnesium Citrate 300 ML PO (17:10)
[2025-02-28 17:14] VITALS: BP 134/61; PULSE 79
[2025-02-28 20:05] VITALS: PULSE 86; RESP 16; O2SAT 98
[2025-02-28] MEDS: Mirtazapine 15 MG Tablet 7.5 MG PO (20:58)
[2025-02-28] MEDS: Pravastatin 40 MG Tablet PO (20:58)
[2025-02-28] MEDS: Senna/Docusate Sodium 1 Tablet PO (20:59)
[2025-02-28] MEDS: Acetaminophen 500 MG Tablet 1000 MG PO (21:01)
[2025-03-01] VITALS (10 sets, daily range): BP systolic 89–117; BP diastolic 48–55; PULSE 74–160; RESP 16–22; TEMP 36.4–37.8; O2SAT 2–98
--- NOTE | 2025-03-01 05:18 | NURSING ---
patient refuses 0600 dose ensure, requests time be changed to 0800
[2025-03-01 06:22] LABS: Cholesterol 128 mg/dL (<=200); High Density Lipoprotein 51 mg/dL; Low Density Lipoprotein Calc. 67 mg/dL; Triglycerides 53 mg/dL; Very Low Density Lipoprotein 11 mg/dL (5-40); cholesterol:hdl ratio screen 2.51
[2025-03-01] MEDS: Ipratropium/Albuterol Sulfate 3 ML AMPUL.NEB INHALATION ×2 (06:58→19:55)
[2025-03-01] MEDS: Escitalopram Oxalate 10 MG Tablet PO (08:33)
[2025-03-01] MEDS: Aspirin E.C. 81 MG Tablet PO (08:33)
[2025-03-01] MEDS: Midodrine HCl 5 MG Tablet 15 MG PO ×3 (08:33→17:40)
[2025-03-01] MEDS: Ensure Plus High Protein 120 ML LIQUID PO ×4 (08:33→20:57)
[2025-03-01] MEDS: Senna/Docusate Sodium 1 Tablet PO ×2 (08:34→20:59)
--- NOTE | 2025-03-01 12:45 | NURSING ---
Window Framer Note; Activity Asset: Oc Irwin is independent in his choice of daily activities. He has stated he prefers to rest after therapy however enjoys talking w/staff in his room. He has his smartphone and will watch tv when not resting or in therapy. Staff will remind him of weekly activities, he welcomes the therapy dog and laborer pullet farm when available. Staff will respect his right to say no.
[2025-03-01] MEDS: Tamsulosin HCl 0.4 MG Capsule 0.8 MG PO (16:36)
[2025-03-01] MEDS: Pravastatin 40 MG Tablet PO (20:57)
[2025-03-01] MEDS: Mirtazapine 15 MG Tablet 7.5 MG PO (20:58)
--- NOTE | 2025-03-01 21:41 | NURSING ---
Addendum entered by Cholo Magaña 03/01/25 22:47: Presents in bed, awake, alert. Does not appear anxious at this time, shaking has subsided. Patient encouraged/educated on importance of fluid intake. Patient verbalizes understanding, however is alert and oriented to person/place and forgetful. Weak. EA x1-2 with all care. Pleasant and cooperative. states I'm feeling better, IV fluids infusing per order, HR 108 apical regular. No distress observed at this time. Repositioned to promote comfort. Denies requests. Call light in reach. Original Note: Patient presents in bed, shaky, verbalizes anxious and can't sleep. Second RN present for assessment. HR 160, BP 97/48. Tenting skin, dry mucus membranes, poor fluid intake, poor appetite. Patient requesting medication for anxiety. Contacted Dr. Davies via telephone notified of findings. New orders received for IV Bolus NS 1L, then continue NS at 75mL/hr, Lorazepam 0.5mg Q4H PRN, orders read back and verified with Dr. Davies.
[2025-03-01] MEDS: 0.9% Saline Lock 10 ML Syringe IV (22:08)
[2025-03-01] MEDS: 0.9% Normal Saline (1000mL) 1,000 ML 999 ML IV (22:09)
[2025-03-01] MEDS: Acetaminophen 500 MG Tablet 1000 MG PO (22:10)
[2025-03-01] MEDS: LORazepam 0.5 MG Tablet PO (22:10)
--- NOTE | 2025-03-01 23:23 | NURSING ---
Oral temp 100.0, BP 117/55, HR 113. LSCTA, denies SOB, resps even and unlabored. Dr. Davies notified of elevated temp, new order received for UA C&S. Order repeated back.
[2025-03-01] MEDS: 0.9% Normal Saline (1000mL) 1,000 ML 75 ML IV (23:37)
[2025-03-01] MEDS: MENTHOL 226.8 GM JAR 1 APPLIC TOPICAL (23:58)
[2025-03-02] VITALS (7 sets, daily range): BP systolic 93–134; BP diastolic 47–81; PULSE 83–105; RESP 16–18; TEMP 36.6–37.6; O2SAT 94–98
[2025-03-02 00:59] LABS: Mucous, Urine 0 SEEN /hpf (<or=2+)
[2025-03-02 01:06] LABS: Color, Urine Yellow (Yellow); Glucose, Dipstick Normal (Normal); Ketone-Dipstick Negative (Negative); Leukocyte Esterase-Dipstick 25 /ul (Negative); Nitrite-Dipstick Negative (Negative); Occult Blood-Urine 25 /ul (Negative); Protein-Dipstick 30 mg/dl (Negative); Specific Gravity, Urine 1.015 (1.002-1.030); Urine Bilirubin Dipstick Negative (Negative); Urine Clarity Sl. Cloudy (Clear); Urine Urobilinogen Normal (Normal)
[2025-03-02 01:33] LABS: Bacteria 2+ /hpf (None Seen); Red Blood Cells-Urine 5-10 SEEN /hpf (0-5); Squamous Epithelial Cells - UA 0-5 SEEN /hpf (0-5); White Blood Cells 10-25 SEEN /hpf (0-5)
[2025-03-02 01:34] LABS: Amorphous Sediment 1+; Calcium Oxalate Crystals Ur 1+ /hpf (<or=2+)
--- NOTE | 2025-03-02 06:00 | NURSING ---
Oral temp 98.3, HR 90, no distress observed or reported. Denies anxiety. IV fluids infusing per order. Patient states I'm feeling better. Per patient slept well. Denies requests call light in reach.
[2025-03-02] MEDS: Ipratropium/Albuterol Sulfate 3 ML AMPUL.NEB INHALATION ×2 (06:29→13:05)
--- NOTE | 2025-03-02 07:26 | NURSING ---
Patient printing supplies sales representative (Karla) updated on new orders via telephone for IV fluids, Ativan, and UA C&S. Karla appreciative of new orders and voiced several concerns regarding patient health status and believes patient is unable to return home due to physical decline. Karla expresses concern regarding patient cognition, states has episodes of confusion in the past with hospitalization that are not as evident when at home. Per Karla patient has previously been reluctant to accept fdc. Karla states patient has had recurrent issues with dehydration and concerned it will be an ongoing issue when patient discharges from hospital. Pt. rep (Karla) requesting to speak with SW regarding insurance coverage and assistance with fdc placement, also requesting care confernce date. Confidential voicemail left for SW requesting follow-up.
[2025-03-02] MEDS: Midodrine HCl 5 MG Tablet 15 MG PO ×3 (08:46→18:03)
[2025-03-02] MEDS: Aspirin E.C. 81 MG Tablet PO (08:46)
[2025-03-02] MEDS: Escitalopram Oxalate 10 MG Tablet PO (08:46)
[2025-03-02] MEDS: Senna/Docusate Sodium 1 Tablet PO ×2 (08:47→20:43)
[2025-03-02] MEDS: Ensure Plus High Protein 120 ML LIQUID PO ×4 (08:47→20:43)
--- NOTE | 2025-03-02 09:46 | MDS.RN ---
Pain assessment for MDS complete.
--- NOTE | 2025-03-02 11:35 | CASEMGMT ---
Social Work SW received VM from mold shifter nurse to contact dtr to answer questions. - SW phoned dtr and answered questions. Dtr inquired about insurance coverage. SW educated to Medicare benefit, meeting guidelines for continued stay, and encouraged to contact secondary insurance to ensure copay coverage. Dtr expressed concern with pt returning home/being home alone. Dtr shared pt's noted decline with April 2024 after [facility] PNA. Dtr reports pt has more of a sedentary lifestyle since then, lack of motivation, energy, and appetite drastically decreased. Dtr also concerned about pt's malnutrition and weight loss, which declined more rapidly over the last 2-3 months. Dtr concerned if something else is going on. SW educated to covering Dr. Morales, and SW will also notify of dtr's concerns. SW informed pt has PT/OT/ST. HEALTH CLINICIAN noted swallowing difficulty. Dtr also expressed decline with pt's cognition. Nursing already entered a cognitive evaluation after conversation this morning. SW had FIELD SPECIALIST schedule with dtr the POC meeting next week. SW explained the POC meeting with provide updates on pt's LOF, the ST outcomes, and IDTs recommendations for DC. SW to discuss options for DC; nonskilled HHC, [place] or SNF at an OOP cost. Dtr stated pt would likely be resistant to another option bedsides home. SW accepted and will have discussion with pt, if warranted, on options and recommendations. Dtr appreciative of support and assistance. SW will continue to follow. Ester Lord MSW PIPE CHANGER
[2025-03-02] MEDS: 0.9% Normal Saline (1000mL) 1,000 ML 75 ML IV (12:30)
--- NOTE | 2025-03-02 14:45 | PCM.PROGNOTE ---
Subjective Subjective Asked by SW and nursing to evaluate pt for weight loss and FTT. He was admitted to the hospital on 02/23/25 after a syncopal event at home. He felt lightheaded prior to syncope. He is chronically lightheaded and has passed out before. Orthostatics in ED were +. BUN was 11 with a creat of 0.69. He had a CT scan of the chest because he struck his left ribs when he fell. The CT did not reveal any rib fractures. It did show a small right pleural effusion and multiple nodular densities in the right upper lobe abutting the right minor fissure. This is new since April of 2024. In April of 2024 he came to the hospital and had a right pleural fusion. Thoracentesis was done and unfortunately he had a pneumothorax postprocedure and required a chest tube. The pleural fluid showed atypical mesothelial cells. He was treated for PNA and sent home. He had a chest x-ray done on 02/10/2025 that showed widening of the right paratracheal stripe with at least partial lobar collapse. There was a stable moderate size right pleural effusion. I spoke with his dtr Karla who tells me that since last April he was seen at [facility] and had some type of lung bx but, neither Karla or Dc could tell me what was done and what the diagnosis was. He has been steadily losing weight since This fall. He is now severely malnourished. PMH is significant for tobacco dependence in remission, chronic respiratory failure with hypoxemia on home oxygen, suspected depression, hyponatremia, chronic anemia since April 2024, COPD, GERD, hyperlipidemia and an abdominal aortic aneurysm. 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 At admission to the hospital he was hydrated and remained orthostatic and he was started on Midodrine. AM cortisol was normal. He is still orthostatic with midodrine and after hydration. He tells me that he has no appetite. He denies nausea, vomiting, abdominal pain and heartburn. He does cough and make some sputum which is generally thick. He states he sometimes has trouble swallowing. He denies feeling suicidal and also denies feeling depressed. His daughter tells me he was not taking his medications at home as prescribed and initially he would eat if they brought him food but now he does not even eat when they bring him food. He denies chest pain and states that he does not wheeze. He wears O2 at 2 L/min 24 hours a day. He has an albuterol inhaler and he also uses Breztri. Objective Data Objective Data Vital Signs: Vital Signs Temp Pulse Resp BP Pulse Ox O2 Del Method O2 Flow Rate 97.9 F 86 18 134/81 H 98 Nasal Cannula 2 03/02/25 08:42 03/02/25 13:05 03/02/25 13:05 03/02/25 08:48 03/02/25 08:42 03/02/25 08:42 03/02/25 10:58 Oxygen Flow Rate (L/min) 2 Oxygen Delivery Method Nasal Cannula Weight: 109 lb 1.602 oz Body Mass Index (BMI) 15.2 Intake & Output: Intake and Output for Last 24 Hours 02/28/25 03/01/25 03/02/25 23:59 23:59 23:59 Intake Total 605 / 605 720 / 720 2666.25 / 2666.25 Balance 605 / 605 720 / 720 2666.25 / 2666.25 Medical Nutrition Assessment Dietitian: Malnutrition Criteria Met Start: 02/28/25 10:44 Freq: Status: Active Protocol: Document 02/28/25 10:44 SB (Rec: 02/28/25 10:45 SB [id number]) Nutrition Malnutrition Evidence of Yes Malnutrition Exists Malnutrition (severe Chronic ): Evidenced By Suboptimal Energy Intake (Severe),Weight Loss (Severe), Physical Changes (Severe) Intake Problem Increased Nutrient Needs (specify) Etiology protein related to wound healing Signs/Symptoms as evidenced by pressure injury on coccyx Status Active Problem Clinical Problem Chronic Disease or Condition Related Malnutrition Etiology severe related to inadequate oral intake and increased energy expenditure likely due to COPD Signs/Symptoms as evidenced by 22% unintentional weight loss x 9 months, PO meeting <75% of estimated nutrition needs x 3 weeks, and muscle/fat wasting in clavicles, temples, and orbitals. Status Active Problem Recommendation Dietitian Continue regular diet with saul BID with breakfast and Recommendations/ dinner, and 120ml EPHP 4x daily with medpass. Changes Will monitor weight trends. Lab / Micro Data 02/28/25 05:25 02/28/25 05:25 Labs: Laboratory Results - last 24 hr 03/01/25 23:54: Urine Color Yellow, Urine Clarity Sl. Cloudy, Urine pH 8.0, Ur Specific [place] 1.015, Urine Protein 30 H, Urine Glucose (UA) Normal, Urine Ketones Negative, Urine Occult Blood 25 H, Urine Nitrite Negative, Urine Bilirubin Negative, Urine Urobilinogen Normal, Ur Leukocyte Esterase 25 H, Urine RBC 5-10 SEEN, Urine WBC 10-25 SEEN, Ur Squamous Epith Cells 0-5 SEEN, Calcium Oxalate Crystal 1+, Amorphous Sediment 1+, Urine Bacteria 2+, Urine Mucus 0 SEEN Micro: Microbiology 03/01/25 03:20 Stool Stool Occult Blood (DESHAUN) - Final Physical Exam Const alert, oriented x3 and no apparent distress Constitutional Narrative: Lying in bed. He is appropriate and he makes good eye contact with me. He does not seem anxious or depressed. He is cachectic. General Appearance: cooperative HEENT head/scalp atraumatic HEENT Narrative: He has a brownish coating of the tongue but, he denies mouth pain or painful swallowing. Mouth: dry mucous membranes Eyes PERRL and EOMs intact bilaterally Eyes Narrative: No scleral icterus, no discharge from the eyes and the conjunctiva is clear. Neck supple and No nodes General: trachea midline Resp Resp Narrative: BS's on the R are diminished when compared to the left, judi in the base but, really diminished throughout the R lung. No supraclavicular adenopathy. No wheezing and no crackles. He is mildly tacypneic at rest and is using his abd muscles. Cardio Cardio Narrative: Regular rhythm with an increased resting heart rate. No murmurs, no gallop and no rub. No ectopy. PMI is displaced medial and inferior. GI GI Narrative: Mildly distended in the lower abdomen and hypertympanic. Nontender to palpation. No masses appreciated. Active bowel sounds in all 4 quadrants. No guarding with palpation. Extremity no calf tenderness Extremity Narrative: He has pitting edema both ankles. He tells me the edema has decreased since admission to the hospital on I suspect this is due to elevation. The right popliteal pulse is 3/3. The left popliteal pulse is diminished. Right dorsalis pedis is 3/3 but the left dorsalis pedis is difficult to palpate. He has no clubbing of his digits. Poor capillary refill. General Extremity: edema; Negative for clubbing or cyanosis Skin Skin Narrative: I am topld he has a wound on the backside by nursing and I did not examine this. Neuro CN's II-XII intact bilaterally, no focal motor deficits and no sensory deficits noted Speech: speech normal Psych thought process normal, cooperative and affect normal Appearance: appropriate Activity / Motor Behavior: Negative for restless Mood & Affect: Negative for anxious or flat affect Thought Content: No suicidality and No hallucination(s) Assessment & Plan Assessment/Plan (1) Debility: (2) Syncope: QUALIFIERS: Syncope type: unspecified Qualified Code(s): R55 - Syncope and collapse (3) Orthostatic hypotension: (4) Hyponatremia: (5) COPD (chronic obstructive pulmonary disease): QUALIFIERS: COPD type: unspecified COPD Qualified Code(s): J44.9 - Chronic obstructive pulmonary disease, unspecified (6) Lung nodule seen on imaging study: (7) Acute cystitis: QUALIFIERS: Hematuria presence: without hematuria Qualified Code(s): N30.00 - Acute cystitis without hematuria (8) History of urinary retention: (9) Severe protein-calorie malnutrition: (10) Abnormal pleural fluid: PLAN: Plan 1. Continue therapy 2. Urine and serum osmolality and a urine sodium........ suspect SIADH. TSH has been normal within the past year but will recheck. 3. Obtain records from [facility] regarding biopsy I am told he had within the past several months. 4. Repeat a BMP in the a.m. Also check TSH, B12, folate, iron studies, ferritin in the a.m. 5. Start cefadroxil empirically for treatment of acute cystitis and await the results of the urine culture. Check 3 postvoid residuals. 6. Start Mucomyst twice daily and Mucinex twice daily.......... diminished breath sounds throughout the right lung -n possible mucous plug? vs endobronchial obstruction. 7. Continue DuoNeb aerosols every 6 hours and albuterol aerosol every 2 hours as needed. 8. Needs a pulmonary consult and further evaluation for lung malignancy. 9. Continue Remeron. May be able to get him off Lexapro. 10. He is taking Flomax 0.8 mg daily and is very orthostatic......and now is on Midodrine........will need follow up with urology. Check PVR's........I do not like having to give Midodrine just to have a pt on Flomax? Will check a PSA. Charges/Coding Visit Charges Inpatient E&M: 82974 Subs Hosp L2
[2025-03-02] MEDS: Cefadroxil 500 MG CAPSULE PO ×2 (15:26→20:42)
--- NOTE | 2025-03-02 15:48 | NURSING ---
medical release signed and faxed to [facility] per Dr Morales request.
--- NOTE | 2025-03-02 16:15 | NURSING ---
dr garcia in to assess pt and discuss his medical history. new orders to be entered for aerosals and mucinex
[2025-03-02 17:22] LABS: Urine Sodium 23 mmol/L (Not Establ.)
[2025-03-02] MEDS: Tamsulosin HCl 0.4 MG Capsule 0.8 MG PO (18:04)
[2025-03-02] MEDS: Mirtazapine 15 MG Tablet 7.5 MG PO (20:43)
[2025-03-02] MEDS: guaiFENesin 1,200 MG Tablet 1200 MG PO (20:43)
[2025-03-02] MEDS: Pravastatin 40 MG Tablet PO (20:43)
[2025-03-02 21:25] LABS: Osmolality, Serum 284 mOsm/KG (280-301)
[2025-03-02 21:26] LABS: Osmolality, Urine 521 mOsm/KG
[2025-03-03] VITALS (9 sets, daily range): BP systolic 105–136; BP diastolic 53–68; PULSE 80–108; RESP 18–28; TEMP 36.7; O2SAT 94–97; BMI 16.0
[2025-03-03] MEDS: 0.9% Normal Saline (1000mL) 1,000 ML 75 ML IV ×2 (02:18→15:40)
[2025-03-03] MEDS: Ipratropium/Albuterol Sulfate 3 ML AMPUL.NEB INHALATION ×3 (06:20→18:55)
[2025-03-03] MEDS: Acetylcysteine 800 MG/4 ML VIAL.NEB. INHALATION ×2 (06:20→18:55)
[2025-03-03 06:42] LABS: Anion Gap 7 (5-15); BUN 21 mg/dL (4-19); BUN/Creat Ratio 38.3 RATIO (10-20); Calcium,Total 8.4 mg/dL (7.6-11.0); Carbon Dioxide 27.5 mmol/L (21.0-32.0); Chloride 98 mmol/L (98-108); Creatinine, Serum 0.56 mg/dL (0.70-1.20); EST Glomerular Filtration Rate 102 (>60); Estimated Creatinine Clearance 54.99 ml/min (50-250); FOLATES,SERUM (FOLIC ACID) 5.54 ng/mL (4.60-34.80); Ferritin 1482 ng/mL (37-417); Glucose 88 mg/dL (70-99); Iron 13 ug/dL (65-175); Iron Binding Capacity,Unsat 129 ug/dL (228-428); PSA,Total - Annual Screen 3.62 ng/mL (0.02-4.00); Sodium Level 132 mmol/L (133-145); Vitamin B12 325 pg/mL (180-914)
[2025-03-03] MEDS: Cefadroxil 500 MG CAPSULE PO ×2 (09:18→20:10)
[2025-03-03] MEDS: Escitalopram Oxalate 10 MG Tablet PO (09:18)
[2025-03-03] MEDS: Ensure Plus High Protein 120 ML LIQUID PO ×3 (09:18→17:06)
[2025-03-03] MEDS: guaiFENesin 1,200 MG Tablet 1200 MG PO (09:18)
[2025-03-03] MEDS: Aspirin E.C. 81 MG Tablet PO (09:18)
[2025-03-03] MEDS: Midodrine HCl 5 MG Tablet 15 MG PO ×3 (09:18→17:05)
--- NOTE | 2025-03-03 10:07 | NURSING ---
Pt consumed 6 oz applesauce and 4 oz chocolate pudding with med pass to aid with swallowing. Pt took Mucinex whole, the rest of the meds were crushed and added to applesauce.
--- NOTE | 2025-03-03 10:11 | NURSING ---
pt unable to void, but can be incont LG amt of dark urine. bladder scan >451cc, st cathed for 500cc dark yellow urine. pt being treated with duricef for UTI, just started first dose lastnight. pt c/o urgency. call light in reach. pt resting in bed.
[2025-03-03] MEDS: Albuterol 2.5 MG/3 ML VIAL.NEB. INHALATION ×2 (10:26→19:25)
--- NOTE | 2025-03-03 10:43 | NURSING ---
dr Morales notified of pt bladder scan & st cath amt. new orders to DC flomax & insert brumfield.
--- NOTE | 2025-03-03 11:08 | NURSING ---
Addendum entered by Jasmin Berkowitz 03/03/25 12:19: Faxed chest CT scan and biopsy results from [place] to pulmonology office. Addendum entered by Jasmin Berkowitz 03/03/25 12:09: Call back from steve De Anda made for 03/09/25 at 1115. Updated resident and family members in room. They will update daughter Philly who will probably be the one to accompany him to appt. Original Note: Left VM with pulmonology office about setting up f/u for lung nodules. Await return call.
--- NOTE | 2025-03-03 12:29 | CASEMGMT ---
Social Work SW has been communicating with Dr. Morales on pt's prognosis and probable lung cancer dx. requesting additional consults and testing prior to making decisions on hospice, etc. SW will continue to follow. - CHUY completed BIMS () and PHQ-2 () for MDS assessment. Ester Lord MEDIA ASSISTANT ASSISTANT TRACK AND FIELD COACH
--- NOTE | 2025-03-03 19:52 | CPS ---
[1920] Pt. showing signs of bronchoconstriction from mucomyst that was administered. I talked to RN to see if we could discontinue pt.'s mucomyst order.
[2025-03-03] MEDS: LORazepam 0.5 MG Tablet PO (20:08)
[2025-03-03] MEDS: Pravastatin 40 MG Tablet PO (20:11)
[2025-03-03] MEDS: Mirtazapine 15 MG Tablet 7.5 MG PO (20:11)
[2025-03-03] MEDS: Senna/Docusate Sodium 1 Tablet PO (20:13)
[2025-03-03 22:20] LABS: Iron Binding Capacity,Total 142 ug/dL (250-450); PERCENT IRON SATURATION 9.2 % (9-55)
[2025-03-04] MEDS: 0.9% Normal Saline (1000mL) 1,000 ML 75 ML IV ×2 (04:30→17:32)
[2025-03-04 07:30] VITALS: PULSE 87; RESP 16; O2SAT 98
[2025-03-04] MEDS: Ipratropium/Albuterol Sulfate 3 ML AMPUL.NEB INHALATION (07:30)
[2025-03-04] MEDS: Ensure Plus High Protein 120 ML LIQUID PO ×3 (08:16→17:26)
[2025-03-04] MEDS: Escitalopram Oxalate 10 MG Tablet PO (08:16)
[2025-03-04] MEDS: Cefadroxil 500 MG CAPSULE PO (08:17)
[2025-03-04] MEDS: Senna/Docusate Sodium 1 Tablet PO ×2 (08:17→21:21)
[2025-03-04] MEDS: Aspirin E.C. 81 MG Tablet PO (08:17)
[2025-03-04] MEDS: Midodrine HCl 5 MG Tablet 15 MG PO ×3 (08:17→17:26)
[2025-03-04 08:22] VITALS: BP 122/65; PULSE 101; RESP 20; TEMP 36.7; O2SAT 96
[2025-03-04] MEDS: guaiFENesin 10 ML UDC (200MG/10ML) 20 ML PO ×2 (12:40→21:21)
[2025-03-04 12:48] VITALS: BP 130/71; PULSE 86
--- NOTE | 2025-03-04 13:00 | RAD_ITS ---
PROCEDURE: CHEST 1 VIEW (PORTABLE) 03/04/2025 REASON FOR EXAM: Shortness of breath TECHNIQUE: Frontal view of the chest. FINDINGS: Hardware: No hardware Heart: Normal size Lungs: Extensive pleural-parenchymal opacity in the right lower zone could represent consolidating airspace disease small right pleural effusion. Bones: No acute bony abnormalities appreciated. Other: RAD/Chest 1 View (Portable) IMPRESSION: Right lung airspace disease and right pleural effusion Reading Location: [facility]
--- NOTE | 2025-03-04 18:12 | NURSING ---
Pt C/O of nausea and vomiting. Dr. Morales updated and N.O. received for Zofran ODT 4 mg q8h for Nausea. Order read back.
[2025-03-04] MEDS: Ondansetron ODT 4 MG Tablet PO (18:33)
[2025-03-04] MEDS: Mirtazapine 15 MG Tablet PO (21:21)
[2025-03-04] MEDS: Doxycycline 100 MG CAPSULE PO (21:21)
[2025-03-04] MEDS: LORazepam 0.5 MG Tablet PO (21:21)
[2025-03-04] MEDS: Pravastatin 40 MG Tablet PO (21:22)
[2025-03-04 22:05] VITALS: RESP 17; O2SAT 95
--- NOTE | 2025-03-04 23:00 | NURSING ---
Pt complains of nausea. Unable to give zofran yet. Pt refused a snack with meds this mao. He also refuses crackers or gingerale. Pt states he will be ok and will wait until he can have more zofran. Educated pt on having food in belly when taking meds may prevent nausea. Pt states no i do not want anything.
[2025-03-05 04:49] LABS: Absolute Lymphocyte Count 0.34 X10^3/uL (0.83-4.51); Absolute Neutrophil Count 6.8 X10^3/uL (2.0-7.7); Basophil# 0.01 X10^3/uL; Basophil% 0.1 % (0-1); Hematocrit 28.3 % (40-54); Lymphocyte # 0.34 X10^3/ul (0.83-4.51); Lymphocyte % 4.6 % (19-41); Mean Corp Hgb Conc 31.8 g/dL (32-36); Mean Corpuscular Hgb 26.5 pg (27.0-32.0); Mean Corpuscular Volume 83.2 fL (80-94); Mean Platelet Vol. 9.8 fl (6.2-12.0); Monocyte# 0.29 X10^3/uL; Monocyte% 3.9 % (0-10); NRBC Flagged by Analyzer 0 % (0-5); Neutrophil % 91.1 % (47-70); POSITIVE DIFFERENTIAL YES; Platelet Count 346 K/mm3 (150-450); RBC Distribution Width CV 17.5 % (11.6-14.6); RBC Distribution Width SD 53.1 fl (35.1-43.9); White Blood Count 7.5 K/mm3 (4.4-11.0)
[2025-03-05 05:08] LABS: Albumin, Serum 2.5 g/dL (3.4-4.8); Anion Gap 8 (5-15); BUN 15 mg/dL (4-19); Calcium,Total 9.2 mg/dL (7.6-11.0); Carbon Dioxide 29.1 mmol/L (21.0-32.0); Chloride 97 mmol/L (98-108); Creatinine, Serum 0.57 mg/dL (0.70-1.20); EST Glomerular Filtration Rate 102 (>60); Estimated Creatinine Clearance 58.11 ml/min (50-250); Glucose 113 mg/dL (70-99); Phosphorus 3.8 mg/dL (2.7-4.5); Potassium 4.2 mmol/L (3.3-5.1); Sodium Level 134 mmol/L (133-145)
[2025-03-05] MEDS: 0.9% Normal Saline (1000mL) 1,000 ML 75 ML IV (06:45)
[2025-03-05] MEDS: Polyethylene Glycol 3350 17 GM PACKET PO (08:36)
[2025-03-05] MEDS: Senna/Docusate Sodium 1 Tablet PO ×2 (08:36→21:08)
[2025-03-05] MEDS: Aspirin E.C. 81 MG Tablet PO (08:36)
[2025-03-05] MEDS: Ensure Plus High Protein 120 ML LIQUID PO ×3 (08:36→18:04)
[2025-03-05] MEDS: Doxycycline 100 MG CAPSULE PO ×2 (08:36→21:07)
[2025-03-05 08:40] VITALS: BP 145/83; PULSE 97; RESP 16; TEMP 36.5; O2SAT 68
--- NOTE | 2025-03-05 10:00 | PN_ITS ---
Subjective Subjective Afebrile VSS - BP lying down is good. Resting HR has ranged from 86-108 over the past 48H Maintaining appropriate oxygen saturation on RA Oral intake - FOOD poor FLUIDS oral fluid intake is very poor. He remains on IV fluids. weight is up 6 lbs in the past 4 days. Now has pitting edema of the ankles and increasing R pleural effusion. Discussed with nursing - no problems that need addressed Reviewed the THERAPY notes Medication list reviewed. Tells me that he feels terrible. No energy, nauseated. Vomited this AM. NO appetite. Losing weight. Denies CP and SOB. RR is increased and he is at times using abd muscles with breathing. Denies palpitations. Objective Data Objective Data Vital Signs: Vital Signs Temp Pulse Resp BP Pulse Ox O2 Del Method O2 Flow Rate 97.7 F L 97 16 145/83 H 68 Nasal Cannula 3 03/05/25 08:40 03/05/25 08:40 03/05/25 08:40 03/05/25 08:40 03/05/25 08:40 03/05/25 08:40 03/05/25 08:40 Oxygen Flow Rate (L/min) 3 Oxygen Delivery Method Nasal Cannula Weight: 115 lb 4.8 oz Body Mass Index (BMI) 16.0 Intake & Output: Intake and Output for Last 24 Hours 03/03/25 03/04/25 03/05/25 23:59 23:59 23:59 Intake Total 2820 / 2820 2280.0 / 2280.0 1231.25 / 1231.25 Output Total 400 / 400 2650 / 2650 Balance 2420 / 2420 -370.0 / -370.0 1231.25 / 1231.25 Medical Nutrition Assessment Dietitian: Malnutrition Criteria Met Start: 02/28/25 10:44 Freq: Status: Active Protocol: Document 02/28/25 10:44 SB (Rec: 02/28/25 10:45 SB [id number]) Nutrition Malnutrition Evidence of Yes Malnutrition Exists Malnutrition (severe Chronic ): Evidenced By Suboptimal Energy Intake (Severe),Weight Loss (Severe), Physical Changes (Severe) Intake Problem Increased Nutrient Needs (specify) Etiology protein related to wound healing Signs/Symptoms as evidenced by pressure injury on coccyx Status Active Problem Clinical Problem Chronic Disease or Condition Related Malnutrition Etiology severe related to inadequate oral intake and increased energy expenditure likely due to COPD Signs/Symptoms as evidenced by 22% unintentional weight loss x 9 months, PO meeting <75% of estimated nutrition needs x 3 weeks, and muscle/fat wasting in clavicles, temples, and orbitals. Status Active Problem Recommendation Dietitian Continue regular diet with saul BID with breakfast and Recommendations/ dinner, and 120ml EPHP 4x daily with medpass. Changes Will monitor weight trends. Lab / Micro Data 03/05/25 04:40 03/05/25 04:40 Labs: Laboratory Results - last 24 hr 03/05/25 04:40: WBC 7.5, RBC 3.40 L, Hgb 9.0 L, Hct 28.3 L, MCV 83.2, MCH 26.5 L , MCHC 31.8 L, RDW Std Deviation 53.1 H, RDW Coeff of Wilbert 17.5 H, Plt Count 346, MPV 9.8, Immature Gran % (Auto) 0.300, Neut % (Auto) 91.1 H, Lymph % (Auto) 4.6 L, Peach % (Auto) 3.9, Eos % (Auto) 0.0, Baso % (Auto) 0.1, Absolute Neuts (auto) 6.8, Absolute Lymphs (auto) 0.34 L, Nucleated RBC % 0, Sodium 134, Potassium 4.2, Chloride 97 L, Carbon Dioxide 29.1, Anion Gap 8, BUN 15, Creatinine 0.57 L, Estim Creat Clear Calc 58.11, Est GFR (MDRD) Non-Af 102, BUN/Creatinine Ratio 26.0 H, Glucose 113 H, Calcium 9.2, Phosphorus 3.8, Albumin 2.5 L Micro: Microbiology 03/01/25 23:54 Urine Catheter - Catheter Urine Culture - Final Staphylococcus hominis hominis 03/01/25 03:20 Stool Stool Occult Blood (DESHAUN) - Final Radiography Diagnostic Testing: Radiology Impression Chest X-Ray 03/04/25 13:00 IMPRESSION: Right lung airspace disease and right pleural effusion Reading Location: [facility] Physical Exam Const alert, oriented x3 and no apparent distress Constitutional Narrative: arouses easily. Appropriate. General Appearance: cooperative HEENT head/scalp atraumatic HEENT Narrative: Arouses easily. Appropriate. Very frustrated at not knowing what is wrong with him and why he is continuing to decline. Appears cachectic. Mouth: dry mucous membranes Eyes PERRL and EOMs intact bilaterally Neck supple and No nodes General: trachea midline Resp Resp Narrative: BS's on the R are diminished when compared to the left, judi in the base but, really diminished throughout the R lung. No supraclavicular adenopathy. No wheezing and no crackles. He is mildly tacypneic at rest and is using his abd muscles. Cardio Cardio Narrative: Regular rhythm with an increased resting heart rate. No murmurs, no gallop and no rub. No ectopy. PMI is displaced medial and inferior. GI GI Narrative: Mildly distended in the lower abdomen and hypertympanic. Nontender to palpation. No masses appreciated. Active bowel sounds in all 4 quadrants. No guarding with palpation. Extremity no calf tenderness Extremity Narrative: He has pitting edema both ankles. General Extremity: edema; Negative for clubbing or cyanosis Neuro CN's II-XII intact bilaterally, no focal motor deficits and no sensory deficits noted Neuro Narrative: Generalized weakness. Speech: speech normal Psych Psych Narrative: frustrated with not having a dx. Appearance: appropriate Activity / Motor Behavior: restless Thought Content: hallucination(s) Assessment & Plan Assessment/Plan (1) Debility: (2) Syncope: QUALIFIERS: Syncope type: unspecified Qualified Code(s): R55 - Syncope and collapse (3) Orthostatic hypotension: PLAN: Much worse with the addition of Flomax and was still retaining urine. Ortega placed. Flomax DC'd. BP is improving. Will start decreasing the dose. Have him follow up with urology going forward. (4) Hyponatremia: (5) COPD (chronic obstructive pulmonary disease): QUALIFIERS: COPD type: unspecified COPD Qualified Code(s): J44.9 - Chronic obstructive pulmonary disease, unspecified (6) Lung nodule seen on imaging study: (7) Acute cystitis: QUALIFIERS: Hematuria presence: without hematuria Qualified Code(s): N30.00 - Acute cystitis without hematuria PLAN: Staph Hominis (8) History of urinary retention: (9) Severe protein-calorie malnutrition: (10) Abnormal pleural fluid: PLAN: Plan 1. BC's X2, resp panel, COVID, sputum culture (he is too weak to get sputum up so this will not likely happen), MRSA nasal swab 2. Stop the maintenance IV and give 25GM albumin and then Lasix 20 mg. 3. Start Zosyn - he vomited yesterday and has been nauseated and he is very malnourished so more likely to have a MDR organism. I suspect he has malignancy (lung) and this increases the risk for MDR organism. If the MRSA nasal swab is = will add Vancomycin. 4. Flomax was discontinued and the BP is improving but, he is still likely to have some lingering effect from Flomax. Will decrease the Midodrine to 10 mg TID and continue to monitor BP. 5. I discussed my suspicions with his dtr and showed her the imaging. We then talked to Dc about how he wants to proceed. He wants to get a dx so he can make an informed decision about how to proceed. He is so weak I do not know if he will even tolerate tx if it is cancer. He has an appt with Dr. Loving this coming . 6. PA and lateral CXR in the AM. 7. CBC with diff and BMP/MAG in AM. Charges/Coding Visit Charges Inpatient E&M: 91251 SNF Subs L2
[2025-03-05] MEDS: Piperacil/Tazobactam 4.5 GM in 0.9% Normal Saline (100mL MB+) 100 ML IV (10:01)
[2025-03-05 10:10] LABS: Lactic Acid < 1.0 mmol/L (0.0-2.0)
[2025-03-05 10:40] VITALS: O2SAT 98
[2025-03-05] MEDS: Albumin Human 25% (100 mL) 25 GM/100 ML BAG IV (11:01)
[2025-03-05] MEDS: guaiFENesin 10 ML UDC (200MG/10ML) 20 ML PO ×2 (13:34→21:09)
[2025-03-05] MEDS: Midodrine HCl 5 MG Tablet 10 MG PO ×2 (13:34→18:04)
[2025-03-05] MEDS: Furosemide 20 MG/2 ML VIAL IV (13:35)
[2025-03-05] MEDS: 0.9% Saline Lock 10 ML Syringe IV (13:37)
[2025-03-05 13:51] VITALS: BP 137/78; PULSE 91
--- NOTE | 2025-03-05 18:07 | NURSING ---
Pt encouraged to eat dinner this evening especially since he ate 25% for breakfast and refused lunch. Pt offered different options and pt continues to refuse. When pt is asked why he doesn't want to eat he says I don't know. Denied nausea at this time. Pt educated on the importance of eating and pt continued to refuse.
[2025-03-05 18:15] VITALS: BP 134/77; PULSE 91
[2025-03-05] MEDS: Piperacil/Tazobactam 3.375 GM in 0.9% Normal Saline (50mL MB+) 50 ML IV (21:02)
[2025-03-05] MEDS: Pravastatin 40 MG Tablet PO (21:07)
[2025-03-05] MEDS: Mirtazapine 15 MG Tablet PO (21:08)
[2025-03-05] MEDS: LORazepam 0.5 MG Tablet PO (21:13)
[2025-03-06 04:18] VITALS: BMI 16.0
--- NOTE | 2025-03-06 05:25 | RAD_ITS ---
PROCEDURE: CHEST PA AND LATERAL 03/06/2025 REASON FOR EXAM: PLEURAL EFFUSINO AND PNA R SIDE TECHNIQUE: Frontal and lateral views of the chest. 2 frontal images to include the entire chest, 3 total images COMPARISON: 03/04/2025 and 02/10/2025 FINDINGS: Overall no significant interval change in appearance of the chest. Patient is rotated to the right. Overall there is again volume loss in the right hemithorax with diffusely thickened rind like appearance of the right pleura which on prior CT appears diffusely nodular. There is again patchy ill-defined right perihilar lower lung opacity suggested with a background of emphysema noted. RAD/Chest PA and Lateral IMPRESSION: Overall no significant interval change in appearance of the chest. Patient is rotated to the right. Overall there is again volume loss in the right hemithorax with diffusely thickened rind like appearan ce of the right pleura which on prior CT appears diffusely nodular. There is again patchy ill-defined right perihilar lower lung opacity suggested with a background of emphysema noted. Reading Location: [id number]
[2025-03-06] MEDS: Piperacil/Tazobactam 3.375 GM in 0.9% Normal Saline (50mL MB+) 50 ML IV (05:33)
[2025-03-06] MEDS: guaiFENesin 10 ML UDC (200MG/10ML) 20 ML PO (05:33)
[2025-03-06] MEDS: Magnesium Citrate 300 ML PO (05:39)
[2025-03-06 06:50] VITALS: O2SAT 95
[2025-03-06] MEDS: Ondansetron ODT 4 MG Tablet PO (07:23)
--- NOTE | 2025-03-06 08:58 | NURSING ---
Pt received Mag Citrate this Am during prior shift d/t not having bowel movement since 03/03/25. Pt C/O of nausea this AM and given Zofran when reassessed pt stated he felt less Nauseated This nurse was in with another pt when called to room d/t pt had vomited up 300ml dark brown emesis. Vitals BP 148/79 Pulse 91 SpO2 96% 2 L NC Temp 97.[address] Morales notified and n.o. received to send to Emergency Room. Report called to nurse. Family notified.
--- NOTE | 2025-03-06 13:58 | DS.PCM_ITS ---
Providers Date of Admission: 02/27/25 Date of Discharge: 03/06/25 Primary Care Physician: Dr. Brent Martinez, DO Consultations 02/27/25 16:11 Consult: Onc/Wound/health care technician Routine Comment: Reason for Consult:: coccyx wound Reason For Visit: SYNCOPAL EVENT, ORTHOSTATIC Diagnosis Discharge Diagnosis (1) Debility: Status: Acute Code(s): R53.81 - Other malaise (2) Syncope: Status: Acute Code(s): R55 - Syncope and collapse Qualifiers: Syncope type: unspecified Qualified Code(s): R55 - Syncope and collapse (3) Orthostatic hypotension: Status: Acute Code(s): I95.1 - Orthostatic hypotension Plan: Much worse with the addition of Flomax and was still retaining urine. Ortega placed. Flomax DC'd. BP is improving. Will start decreasing the dose. Have him follow up with urology going forward. (4) Hyponatremia: Status: Acute Code(s): E87.1 - Hypo-osmolality and hyponatremia (5) COPD (chronic obstructive pulmonary disease): Status: Chronic Code(s): J44.9 - Chronic obstructive pulmonary disease, unspecified Qualifiers: COPD type: unspecified COPD Qualified Code(s): J44.9 - Chronic obstructive pulmonary disease, unspecified (6) Lung nodule seen on imaging study: Status: Acute Code(s): R91.1 - Solitary pulmonary nodule (7) Acute cystitis: Status: Acute Code(s): N30.00 - Acute cystitis without hematuria Qualifiers: Hematuria presence: without hematuria Qualified Code(s): N30.00 - Acute cystitis without hematuria Plan: Staph Hominis (8) History of urinary retention: Status: Acute Code(s): Z87.898 - Personal history of other specified conditions (9) Severe protein-calorie malnutrition: Status: Acute Code(s): E43 - Unspecified severe protein-calorie malnutrition (10) Abnormal pleural fluid: Status: Acute Code(s): R89.9 - Unspecified abnormal finding in specimens from other organs, systems and tissues Plan Called by nursing with persistent nausea and a coffee ground emesis. Sent to ED. Medications at Discharge Home Medications pravastatin 40 mg tablet 40 mg PO QHS high cholesterol 01/16/18 aspirin 81 mg tablet,delayed release (Adult Low Dose Aspirin) 81 mg PO DAILY heart health 08/17/18 escitalopram oxalate 10 mg tablet 10 mg PO DAILY depression 02/23/25 food supplemt, lactose-reduced 0.08 gram-1.5 kcal/mL oral liquid (Ensure Plus High Protein) 120 ml PO 4X/DAY supplement #0 mL 02/27/25 midodrine 5 mg tablet 10 mg (2 x 5 mg) PO TIDCM blood pressure #0 tabs 02/27/25 acetaminophen 325 mg tablet 650 mg PO Q4H PRN Fever, pain 1-07/2103/06/25 albuterol sulfate 2.5 mg/3 mL (0.083 %) solution for nebulization 2.5 mg inhalation Q2H PRN Dyspnea, wheezing 03/06/25 ipratropium 0.5 mg-albuterol 3 mg (2.5 mg base)/3 mL nebulization soln 3 ml inhalation Q6H PRN dyspnea/wheezing 03/06/25 tamsulosin 0.4 mg capsule 0.8 mg PO 1730 prostate 03/06/25 Hospital Course Operations None Summary of Care Provided Minutes Spent on Discharge: 30 Hospital Course: 74 YO male who has been declining since last April. He was admitted to the hospital in April 2024 with a right pleural effusion. He underwent thoracentesis and pathology revealed atypical mesothelial cells. Over the next several months he had progressive decline in his physical wellbeing and was losing weight. Appetite was poor. He was seen at [facility] in September 2020 for and had a thoracoscopy with biopsy of a pleural nodule which showed nests of mesothelial cells with no malignant cells. He has never had a bronchoscopy. He had a 40-year history of exposure to asbestos and had been a smoker. He presented to [facility] emergency department on 02/23/2025 after syncopal event at home. He complained of lightheadedness. Orthostatics in the ER were positive and he was hydrated and started on midodrine. He was also started on Flomax 0.8 mg for urine retention. CT of the chest showed increased thickening of the pleura on the right with multiple small nodules. There was evidence of nodular densities within the infiltrate in the posterolateral aspect of the right upper lobe abutting the right minor fissure. Tiny nodules were also seen along the right minor fissure. There was a small right pleural effusion. He was transferred to the transitional care unit on 02/27/2025. He remained on IV fluids and developed pitting edema of the ankles and an increasing right pleural effusion. He was orthostatic despite midodrine 15 mg 3 times daily and he was still retaining urine on Flomax 0.8 mg daily. Flomax was discontinued and a Ortega catheter was inserted. Chest x-ray on 03/04/2025 showed consolidation in the right lower lobe with increasing right pleural effusion. Intravenous fluids were discontinued and he was given 1 dose of albumin 25 g followed by 20 mg of IV Lasix. He was started on Zosyn for hospital-acquired pneumonia. MRSA nasal swab was negative. COVID was negative. Respiratory panel was negative. His cough is loose but he is unable to expectorate sputum. Blood cultures were drawn. On the morning of 03/06/2025 I was called by nursing to say that he had a coffee ground emesis and he had increased work of breathing. He was sent to the ED for evaluation and was subsequently admitted to the hospitalist service. I suspect he has lung CA..... Possible mesothelioma. He has never had a bronchoscopy but he also smoked in the past. There is a loss of volume in the right upper lobe and markedly diminished breath sounds on the right side when compared to the left. He could have an endobronchial lesion. Dc would like to have a diagnosis for why he has been progressively faily since last April so that he can make and informed decision on what he would like done. He had an appt scheduled with Dr. Loving on 03/09/25 but, he can now have a pulmonary consult in the hospital. Physical Exam Const alert Constitutional Narrative: arouses easily. Appropriate. General Appearance: cooperative HEENT HEENT Narrative: Arouses easily. Appropriate. Very frustrated at not knowing what is wrong with him and why he is continuing to decline. Appears cachectic. Mouth: dry mucous membranes Eyes PERRL and EOMs intact bilaterally Neck supple and No nodes Neck Narrative: No cervical or supraclavicular adenopathy noted. General: trachea midline Resp Resp Narrative: BS's on the R are diminished when compared to the left, judi in the base but, really diminished throughout the R lung. No supraclavicular adenopathy. No wheezing and no crackles. He is mildly tacypneic at rest and is using his abd muscles. Cardio Cardio Narrative: Regular rhythm with an increased resting heart rate. No murmurs, no gallop and no rub. No ectopy. PMI is displaced medial and inferior. GI GI Narrative: Mildly distended in the lower abdomen and hypertympanic. Nontender to palpation. No masses appreciated. Active bowel sounds in all 4 quadrants. No guarding with palpation. Extremity no calf tenderness Extremity Narrative: He has pitting edema both ankles. General Extremity: edema; Negative for clubbing or cyanosis Skin Rashes: no rashes Neuro CN's II-XII intact bilaterally, no focal motor deficits and no sensory deficits noted Neuro Narrative: Generalized weakness. Speech: speech normal Psych cooperative and denies hallucinations Psych Narrative: frustrated with not having a dx. Poor appetite. Depressed affect. Trouble staying asleep. Appearance: appropriate Activity / Motor Behavior: restless Thought Content: hallucination(s) Weight / BMI Weight Weight: 114 lb 8 oz Body Mass Index (BMI) 16.0 ABG / Lab / Microbiology Data 03/05/25 04:40 03/05/25 04:40 Microbiology: Microbiology 03/05/25 10:36 Mucosa - Nasopharyngeal Respiratory Panel (PCR) - Final 03/05/25 10:36 Nasal Secretion MRSA (PCR) - Final 03/05/25 09:45 Nasal Secretion SARS-CoV-2 Antigen (Rapid) - Final 03/01/25 23:54 Urine Catheter - Catheter Urine Culture - Final Staphylococcus hominis hominis 03/01/25 03:20 Stool Stool Occult Blood (DESHAUN) - Final Radiography Diagnostic Testing: Radiology Impression Chest X-Ray 03/06/25 05:25 IMPRESSION: Overall no significant interval change in appearance of the chest. Patient is rotated to the right. Overall there is again volume loss in the right hemithorax with diffusely thickened rind like appearance of the right pleura which on prior CT appears diffusely nodular. There is again patchy ill-defined right perihilar lower lung opacity suggested with a background of emphysema noted. Reading Location: [id number] D/C Instructions DC O2, CPAP, BIPAP Needs Home O2 Discharge instructions: No Please Follow Up With: Dr. Loving Meaningful Use Info Meaningful Use Meaningful Use Diagnoses (Choose all that apply): None applicable Ischemic Stroke Statin Dosing Therapy Reference: STATIN DOSE THERAPY REFERENCE: * Patients > 75 years receive moderate or high dose statin therapy. * Patients 75 years or YOUNGER should receive HIGH intensity statin dose unless contraindicated. You will be required to document reason for non-treatment if statin daily dose does not meet guidelines. HIGH DOSE STATIN THERAPY DAILY Atorvastatin > than or = to 40 mg Rosuvastatin > than or = to 20 mg Amlodipine + Atorvastatin > than or = to 2.5/40 mg Ezetimibe + Simvastatin 10/80 mg Simvastatin 80mg Discharge Plan Admission Admit Date/Time: 02/27/25 15:45 Attending Provider: Johnathan Davies Chi Primary Care Provider: Brent Martinez Discharge Orders/Prescriptions Prescriptions: No Action aspirin [Adult Low Dose Aspirin] 81 mg tablet,delayed release (DR/EC) 81 mg PO DAILY pravastatin 40 MG tablet 40 mg PO QHS Patient Comments: TAKE 1 TABLET EVERY DAY escitalopram oxalate 10 mg tablet 10 mg PO DAILY midodrine 5 mg Tablet 10 mg PO TIDCM Qty: 0 0RF Ensure Plus High Protein 0.08 gram-1.5 kcal/mL Liquid 120 ml PO 4X/DAY Qty: 0 0RF acetaminophen 325 mg Tablet 650 mg PO Q4H PRN (Reason: Fever, pain 1-07/21) ipratropium-albuterol 0.5 mg-3 mg(2.5 mg base)/3 mL Solution For Nebulization 3 ml inhalation Q6H PRN (Reason: dyspnea/wheezing) albuterol sulfate 2.5 mg /3 mL (0.083 %) Solution For Nebulization 2.5 mg inhalation Q2H PRN (Reason: Dyspnea, wheezing) tamsulosin 0.4 mg Capsule 0.8 mg PO 1730 Referrals / Follow Up: Brent Martinez DO [Primary Care Provider] - Disposition Disposition (needs filled in before D/C Order can be placed): [facility] Charges/Coding Visit Charges Inpatient E&M: 13523 SNF Disch
--- NOTE | 2025-03-08 15:00 | MDS.RN ---
Information for the MDS was obtained from review of the clinical record, interview of resident, staff, and direct observation of resident?s care.
== END 2025-03-06 12:27 | disposition short-term general hospital (02) | DRG 312 ==
PROVIDERS: Internal Medicine; Admitting Provider Family Medicine Geriatric Medicine; PCP Family Medicine; Visit Provider Family Medicine Geriatric Medicine
DX: I95.1 Orthostatic hypotension (principal); E43 Unspecified severe protein-calorie malnutrition; J18.9 Pneumonia, unspecified organism; J90 Pleural effusion, not elsewhere classified; J44.0 Chronic obstructive pulmonary disease with (acute) lower respiratory infection; E87.1 Hypo-osmolality and hyponatremia; E27.40 Unspecified adrenocortical insufficiency; J96.11 Chronic respiratory failure with hypoxia; N30.00 Acute cystitis without hematuria; Z68.1 Body mass index [BMI] 19.9 or less, adult; L89.152 Pressure ulcer of sacral region, stage 2; C45.7 Mesothelioma of other sites; F32.9 Major depressive disorder, single episode, unspecified; I10 Essential (primary) hypertension; J44.9 Chronic obstructive pulmonary disease, unspecified; E78.5 Hyperlipidemia, unspecified; K21.9 Gastro-esophageal reflux disease without esophagitis; D64.89 Other specified anemias; F41.9 Anxiety disorder, unspecified; Z99.81 Dependence on supplemental oxygen; Z87.891 Personal history of nicotine dependence; N40.0 Benign prostatic hyperplasia without lower urinary tract symptoms; Z79.82 Long term (current) use of aspirin; Z79.899 Other long term (current) drug therapy; Y95 Nosocomial condition; B95.7 Other staphylococcus as the cause of diseases classified elsewhere
CPT/HCPCS: 36415; 71045; 71046; 80048; 80061; 80069; 81001; 82274; 82533; 82607; 82728; 82746; 83540; 83550; 83605; 83930; 83935; 84153; 84300; 84443; 85025; 87040; 87070; 87077; 87086; 87088; 87186; 87205; 87633; 87641; 87811; 92526; 92610; 94640; 97110; 97162; 97166; 97530; 97535; P9047; A4216; G0103; J0834; J1938

== ENCOUNTER 2025-03-06 09:07 | Inpatient (IN) | payer OTHER, SELFPAY ==
[2025-03-06] VITALS (10 sets, daily range): BP systolic 105–124; BP diastolic 57–78; PULSE 71–170; RESP 17–19; TEMP 36.6–36.8; O2SAT 89–97; BMI 17.2
--- NOTE | 2025-03-06 09:18 | CT_ITS ---
PROCEDURE: ABDOMEN/PELVIS W IV CONT ONLY 03/06/2025 REASON FOR EXAM: NAUSEA, VOMITING, CONSTIPATION TECHNIQUE: Abdomen and pelvis CT with intravenous contrast. Coronal and Sagittal reconstruction series were provided. PATIENT PREPARATION: Per protocol ORAL CONTRAST TYPE: None. CONTRAST: Isovue 370 VOLUME: 100 mL One or more dose reduction techniques were used (e.g., Automated exposure control, adjustment of the mA and/or kV according to patient size, use of iterative reconstruction technique. RADIATION DOSE SUMMARY: CTDlvol: 7 mGy DLP: 400 mGycm COMPARISON: CT chest 02/23/2025. FINDINGS: Lung bases: Small right and moderate left pleural effusions with adjacent atelectasis. Interval progression of the right lower lobe consolidation. There is asymmetric thickening and nodularity of the visualized lower pleura (for example on the right series 2, image 8), [id number]. Coronary artery and thoracic aortic calcifications. The heart is normal in size. Liver: The liver is normal in size with prominent Brenda's lobe. No suspicious hepatic lesion. The major portal veins are patent. No biliary ductal dilation. Gallbladder: The gallbladder is decompressed. Spleen: Normal size. Pancreas: Diffuse fatty atrophy. Adrenals: No adrenal mass. Kidneys: Bilateral renal cortical scarring, [id number]. Nonobstructing bilateral renal calculi. No hydronephrosis. Bladder: Decompressed by indwelling Ortega catheter. Reproductive Organs: Grossly unremarkable. Bowel: Diffuse distention/borderline dilation of the small bowel loops, measuring up to 3.1 cm. Marked retained fecal material throughout the colon with diffuse thickening of the rectal wall and loss of fat planes surrounding the rectum. No obvious perforation. No ascites or pneumoperitoneum. Normal appendix. Lymph nodes: No obvious lymphadenopathy, however visualization is limited by diffuse body edema. Vasculature: Prior infrarenal EVAR with aorto bi-iliac graft. Severe mixed plaque of the aortoiliac vessels. Bones/soft tissues: Diffuse body wall edema. Thoracolumbar spondylosis. CT/Abdomen/Pelvis W IV Cont ONLY IMPRESSION: 1. Severe fecal impaction without evidence of perforation. Diffuse distention/ borderline dilation of the small bowel loops, likely secondary to stool burden. 2. Progression of the right lower lobe consolidation, and increased size of the small right and moderate left pleural effusions with pleural nodularity. Findings may represent progressing pneumonitis/pneumo princess, however pulmonary neoplasm is an additional consideration. Consider diagnostic thoracentesis to evaluate for malignancy. 3. Nonobstructing bilateral renal calculi. Reading Location: [id number]
--- NOTE | 2025-03-06 09:18 | EKG12_ITS ---
Test Reason : N/V Blood Pressure : */* mmHG Vent. Rate : 98 BPM Atrial Rate : 98 BPM P-R Int : 116 ms QRS Dur : 78 ms QT Int : 418 ms P-R-T Axes : 79 66 73 degrees QTcB Int : 533 ms Sinus rhythm with Premature supraventricular complexes Low voltage QRS Nonspecific ST and T wave abnormality Abnormal ECG poor tracing Confirmed by Andres Mcginnis ([id number]), associate entertainment editor MEDARDO CHRISTINE ([id number]) on 03/13/2025 12:54:37 PM Referred By: Confirmed By: Andres Mcginnis
[2025-03-06 09:31] LABS: Absolute Neutrophil Count 7.6 X10^3/uL (2.0-7.7); Basophil# 0.01 X10^3/uL; Basophil% 0.1 % (0-1); Eosinophil# 0.01 X10^3/uL; Eosinophils% 0.1 % (0-5); Hematocrit 29.7 % (40-54); Hemoglobin 9.4 g/dL (13.0-16.5); Lymphocyte % 4.7 % (19-41); Mean Corp Hgb Conc 31.6 g/dL (32-36); Mean Corpuscular Hgb 26.6 pg (27.0-32.0); Mean Corpuscular Volume 83.9 fL (80-94); Mean Platelet Vol. 9.7 fl (6.2-12.0); Monocyte% 5.8 % (0-10); NRBC Flagged by Analyzer 0 % (0-5); Neutrophil # 7.61 X10^3/uL (2.7-7.7); Neutrophil % 88.8 % (47-70); POSITIVE DIFFERENTIAL YES; Platelet Count 443 K/mm3 (150-450); RBC Distribution Width CV 17.3 % (11.6-14.6); RBC Distribution Width SD 53.4 fl (35.1-43.9); Red Blood Count 3.54 M/mm3 (4.6-6.2); White Blood Count 8.6 K/mm3 (4.4-11.0)
[2025-03-06] MEDS: 0.9% Normal Saline (1000mL) 1,000 ML 999 ML IV (09:32)
[2025-03-06] MEDS: Ondansetron 4 MG/2 ML Vial IV ×2 (09:32→23:13)
--- NOTE | 2025-03-06 09:36 | EDS_ITS ---
HPI History of Present Illness Chief Complaint: Nausea/Vomiting Narrative Narrative: Chief complaint and HPI: Coffee-ground emesis. History taken by medical record as well as the patient. Reviewed the discharge summary from 02/27/2025. Patient is a 74-year-old gentleman with past medical history of COPD, GERD, HTN, AAA status postrepair who presents from TCU for evaluation of coffee-ground emesis. Patient was recently just admitted to the hospital for syncope secondary to orthostatic hypotension and decreased appetite. He was placed on midodrine and fluids. He was sent to TCU for short-term rehab. Patient states that he has been constipated for the last 3 days. He states today he felt nauseous. He states that he was given medicine for an upset stomach although does not know what this is and shortly later had 1 episode of dark emesis. Patient states he has had a decreased p.o. intake for years. He denies any fever, chills, shortness of breath, chest pain, abdominal pain, diarrhea, dysuria. Currently has a Ortega catheter although states that he does not know why this was placed. He states rehab has not been going well secondary to general weakness. Patient is not on blood thinners. On chart review, it does not specifically state why the patient has a Ortega catheter although I suspect that it was secondary to urinary retention from BPH. Review of systems: See HPI Medications: As listed on the chart Allergies: As listed on the chart PFSH: Per chart Vital signs: As listed on the chart. Reviewed. Physical exam: Gen: A&O x3, NAD Head: Normocephalic, atraumatic Eyes: No sclera icterus, conjunctiva clear ENT: Mildly dry mucous membranes Neck: Trachea midline, No JVD CV: RRR, no murmurs, no peripheral edema Resp: Lungs CTA BL, no w/r/c GI: Abd soft, mildly distended, non-tender, no r/r/g Rectal: Normal external examination. No evidence of hemorrhoids or fissures. Normal tone and sensation. No masses, fluctuance, or tenderness. No pain out of proportion. + Brown soft stool in rectal vault : No CVA tenderness. Circumcised penis. No penile tenderness dried blood at the penile meatus. . No penile or testicular swelling. Normal lie and position of the testicles. No testicular tenderness, masses, or skin changes. No rashes. Ortega catheter with slightly cloudy urine Musc: Full ROM, no deformity Skin: Warm, dry Neuro: Alert, oriented, grossly intact, sensation intact Psych: Cooperative, appropriate mood and affect [facility] Medical History (Updated 03/06/25 @ 11:[address] Katlin Sullivan MD) Abnormal pleural fluid Kidney stones Former smoker On home oxygen therapy Anxiety and depression Chronic hypoxic respiratory failure COPD (chronic obstructive pulmonary disease) Former tobacco use Pneumothorax on right Pleural effusion on right Elevated blood pressure reading in office without diagnosis of hypertension (~2014) GERD (gastroesophageal reflux disease) Essential (primary) hypertension Hyperlipidemia Abdominal aortic aneurysm (AAA) Home Medications ?Medication ?Instructions ?Recorded ?Last Taken ?Type pravastatin 40 mg tablet 40 mg PO QHS high cholestero l 01/16/18 02/22/25 History aspirin 81 mg tablet,delayed 81 mg PO DAILY heart heal th 08/17/18 02/22/25 History release (Adult Low Dose Aspirin) escitalopram oxalate 10 mg tablet 10 mg PO DAILY depre ssion 02/23/25 02/22/25 History food supplemt, lactose-reduced 120 ml PO 4X/DAY supple ment #0 mL 02/27/25 Unknown Rx 0.08 gram-1.5 kcal/mL oral liquid (Ensure Plus High Protein) midodrine 5 mg tablet 10 mg (2 x 5 mg) PO TIDCM bl ood 02/27/25 Unknown Rx pressure #0 tabs acetaminophen 325 mg tablet 650 mg PO Q4H PRN Fever, p ain 03/06/25 Unknown History -07/21 albuterol sulfate 2.5 mg/3 mL 2.5 mg inhalation Q2H [place] N Dyspnea, 03/06/25 Unknown History (0.083 %) solution for nebulization wheezing ipratropium 0.5 mg-albuterol 3 mg 3 ml inhalation Q6H PRN 03/06/25 Unknown History (2.5 mg base)/3 mL nebulization dyspnea/wheezing soln tamsulosin 0.4 mg capsule 0.8 mg PO 1730 prostate 02/10 04/05 Unknown History Allergy/AdvReac Type Severity Reaction Status Date / Time No Known Allergies Allergy Verified 03/06/25 09:08 Family History Father Heart disease Hypertension Myocardial infarction TAA Sister Hypertension Mother Hypertension Surgical History S/P AAA repair History of placement of chest tube History of ear surgery History of inguinal hernia repair Social History household members: none Smoking Status: Former smoker how long ago did patient quit smoking: Quit 08/26/2011. alcohol intake: never substance use type: does not use EXAM Physical Exam Const Vital Signs: 03/06/25 09:08 03/06/25 11:07 Temperature 98 F Temperature Source Oral Pulse Rate 98 71 Respiratory Rate 17 19 H Blood Pressure 123/71 H 119/65 Blood Pressure Mean 88 83 Pulse Ox 95 97 Oxygen Delivery Method Nasal Cannula Room Air Oxygen Flow Rate (L/min) 2 MDM MDM MDM Narrative Medical decision making narrative: Patient is a 74-year-old gentleman with past medical history of COPD, GERD, HTN, AAA status postrepair who presents from TCU for evaluation of coffee-ground emesis. Patient had 1 episode prior to arrival. Associated symptom is nausea and constipation. History was taken by patient as well as medical chart. See HPI. Differential diagnosis includes but is not limited to upper GI bleed, gastritis, PUD, gastroenteritis, constipation, ileus, UTI. NS bolus, Protonix, Zofran ordered for symptoms. Will switch out Ortega catheter and obtain UA. Laboratory workup ordered including CT abdomen pelvis. CBC without leukocytosis. Patient has baseline anemia of 9.4. CMP without HARPREET or elevated BUN. Would expect BUN elevated and upper GI bleed. No significant electrolyte abnormality. Magnesium unremarkable. No transaminitis. Lipase unremarkable. Patient has malnutrition with an albumin of 2.8. UA positive for blood, patient did have a new catheter placed. Negative for UTI. Stool occult positive. CT abdomen pelvis shows fecal impaction without evidence of perforation. Diffuse distention/borderline dilation of small bowel loops, likely secondary to stool burden. Progression of right lower lobe consolidation and increased of the small right and moderate left pleural effusions with pleural nodularity. Findings may represent pneumonitis/pneumonia however cannot rule out neoplasm. Nonobstructing bilateral renal calculi. Patient's symptoms are not consistent with pneumonia. He has no cough or URI type symptoms. No shortness of breath. No leukocytosis. On chart review, patient has had pleurocentesis in the past concerning of neoplasm. Upon talking to him he states he has seen oncology however they did not see any cancer and no further workup was performed. Concern is for a possible ileus. Stomach is enlarged on CT abdomen pelvis. Likely will place NG. Given CT abdomen pelvis finding with positive stool cultures, I did speak with Dr. Reta CRESPO. Hold off on any enema for now. Agrees with NG tube. Will see in consult. Patient will warrant admission. I spoke with the hospitalist service who accepted admission. Patient and family updated of all the results. Their questions were answered. NG tube placed. Copious amounts of dark drainage. Awaiting x-ray for NG placement. EKG: Interpreted by me/EM physician: EKG shows normal sinus rhythm with PACs. No ST elevation. Heart rate 98. Impression: 1. GI bleed-upper versus lower 2. Small bowel dilation, concern for ileus 3. Constipation 4. Bilateral pleural effusions 5. Malnutrition 6. Chronic anemia Lab Data Labs: Laboratory Results - last 24 hr 03/06/25 03/06/25 09:24 09:42 WBC 8.6 RBC 3.54 L Hgb 9.4 L Hct 29.7 L MCV 83.9 MCH 26.6 L MCHC 31.6 L RDW Std Deviation 53.4 H RDW Coeff of Wilbert 17.3 H Plt Count 443 MPV 9.7 Immature Gran % (Auto) 0.500 Neut % (Auto) 88.8 H Lymph % (Auto) 4.7 L Bradley % (Auto) 5.8 Eos % (Auto) 0.1 Baso % (Auto) 0.1 Absolute Neuts (auto) 7.6 Absolute Lymphs (auto) 0.40 L Nucleated RBC % 0 Sodium 133 Potassium 3.7 Chloride 92 L Carbon Dioxide 30.9 Anion Gap 10 BUN 16 Creatinine 0.62 L Estim Creat Clear Calc 62.11 Est GFR (MDRD) Non-Af 99 BUN/Creatinine Ratio 25.0 H Glucose 115 H Lactic Acid < 1.0 Calcium 9.5 Magnesium 2.2 Total Bilirubin 0.29 AST 23 ALT 10 Alkaline Phosphatase 95 Total Protein 5.9 Albumin 2.8 L Globulin 3.1 Albumin/Globulin Ratio 0.9 Lipase 15 Urine Color Yellow Urine Clarity Cloudy Urine pH 6.0 Ur Specific [place] 1.025 Urine Protein 30 H Urine Glucose (UA) Normal Urine Ketones Negative Urine Occult Blood 250 H Urine Nitrite Negative Urine Bilirubin Negative Urine Urobilinogen Normal Ur Leukocyte Esterase 25 H Urine RBC > 100 SEEN Urine WBC 5-10 SEEN Ur Squamous Epith Cells 0 SEEN Ur Renal Epithelial Cell 5-10 SEEN Urine Bacteria 0 SEEN Hyaline Casts 0-5 SEEN Fine Granular Casts 0-5 SEEN Urine Mucus 0 SEEN Radiography Diagnostic Testing: Clinical Impression(s) from Imaging Studies Abdomen/Pelvis CT 03/06/25 09:18 IMPRESSION: 1. Severe fecal impaction without evidence of perforation. Diffuse distention/borderline dilation of the small bowel loops, likely secondary to stool burden. 2. Progression of the right lower lobe consolidation, and increased size of the small right and moderate left pleural effusions with pleural nodularity. Findings may represent progressing pneumonitis/pneumonia, however pulmonary neoplasm is an additional consideration. Consider diagnostic thoracentesis to evaluate for malignancy. 3. Nonobstructing bilateral renal calculi. Reading Location: [id number] Discharge Plan Triage Chief Complaint: Nausea/Vomiting ED Provider: Jorge Fox Dx/Rx/DC Orders Prescriptions: No Action aspirin [Adult Low Dose Aspirin] 81 mg tablet,delayed release (DR/EC) 81 mg PO DAILY pravastatin 40 MG tablet 40 mg PO QHS Patient Comments: TAKE 1 TABLET EVERY DAY escitalopram oxalate 10 mg tablet 10 mg PO DAILY midodrine 5 mg Tablet 10 mg PO TIDCM Qty: 0 0RF Ensure Plus High Protein 0.08 gram-1.5 kcal/mL Liquid 120 ml PO 4X/DAY Qty: 0 0RF acetaminophen 325 mg Tablet 650 mg PO Q4H PRN (Reason: Fever, pain 1-07/21) ipratropium-albuterol 0.5 mg-3 mg(2.5 mg base)/3 mL Solution For Nebulization 3 ml inhalation Q6H PRN (Reason: dyspnea/wheezing) albuterol sulfate 2.5 mg /3 mL (0.083 %) Solution For Nebulization 2.5 mg inhalation Q2H PRN (Reason: Dyspnea, wheezing) tamsulosin 0.4 mg Capsule 0.8 mg PO 1730 Primary Care Provider: Brent Martinez Referrals: Brent Martinez DO [Primary Care Provider] - Print Language: Chadian
[2025-03-06 09:47] LABS: Bacteria 0 SEEN /hpf (None Seen); Mucous, Urine 0 SEEN /hpf (<or=2+); Squamous Epithelial Cells - UA 0 SEEN /hpf (0-5)
[2025-03-06 09:53] LABS: ALB/GLOB Ratio 0.9 RATIO (0.9-2.4); AST(SGOT) 23 U/L (<=37); Alanine Aminotransfer ALT/SGPT 10 U/L (<=46); Albumin, Serum 2.8 g/dL (3.4-4.8); Alkaline Phosphatase 95 U/L (40-129); Anion Gap 10 (5-15); BUN 16 mg/dL (4-19); Calcium,Total 9.5 mg/dL (7.6-11.0); Carbon Dioxide 30.9 mmol/L (21.0-32.0); Chloride 92 mmol/L (98-108); Creatinine, Serum 0.62 mg/dL (0.70-1.20); EST Glomerular Filtration Rate 99 (>60); Estimated Creatinine Clearance 62.11 ml/min (50-250); Globulin 3.1 g/dL (2.2-4.2); Glucose 115 mg/dL (70-99); Lactic Acid < 1.0 mmol/L (0.0-2.0); Lipase 15 U/L (13-75); Potassium 3.7 mmol/L (3.3-5.1); Protein, Total 5.9 g/dL (5.9-8.4); Sodium Level 133 mmol/L (133-145); Total Bilirubin 0.29 mg/dL (0.00-1.30)
[2025-03-06 10:05] LABS: Magnesium 2.2 mg/dL (1.5-2.2)
[2025-03-06 10:23] LABS: Color, Urine Yellow (Yellow); Glucose, Dipstick Normal (Normal); Ketone-Dipstick Negative (Negative); Leukocyte Esterase-Dipstick 25 /ul (Negative); Nitrite-Dipstick Negative (Negative); Occult Blood-Urine 250 /ul (Negative); Protein-Dipstick 30 mg/dl (Negative); Specific Gravity, Urine 1.025 (1.002-1.030); Urine Bilirubin Dipstick Negative (Negative); Urine Clarity Cloudy (Clear); Urine Urobilinogen Normal (Normal)
[2025-03-06] MEDS: Pantoprazole Sodium 40 MG in 0.9% Normal Saline (100mL MB+) 100 ML 330 MG IV ×2 (10:27→21:07)
[2025-03-06 10:47] LABS: Red Blood Cells-Urine > 100 SEEN /hpf (0-5); White Blood Cells 5-10 SEEN /hpf (0-5)
[2025-03-06 10:51] LABS: Renal Epithelial Cells 5-10 SEEN /hpf (0-5)
[2025-03-06 10:52] LABS: Fine Granular Cast- Urine 0-5 SEEN /lpf (0-5); Hyaline Cast 0-5 SEEN /lpf (0-5)
--- NOTE | 2025-03-06 11:19 | HP.PCM.HOS_ITS ---
HPI - General General Date of Admission: 03/06/25 Date of Service: 03/06/25 Chief Complaint: coffee ground emesis HPI Narrative BUZZ PUGH, is a 74 M with a PMH as outlined who presents fron the TCU with a complaint of coffee ground emesis. He was recently on admission in the hospital for syncope and failure to thrive and placed on midodrine for orthostatic hypotension. He was discharged on 02/27/2025 to TCU. In the TCU today, he had emesis and it was coffee ground so he was brought into the ED. He is not on any blood thinners nor does he have a history of peptic ulcer disease. dark stools or any hematemesis and denied any abdominal pain. He admits. He denied an review of symptoms otherwise negative. Vitals in the ED were blood pressure of 119/65, pulse rate of 71 temperature of 98 Fahrenheit. Respirate rate was 19 and he was saturating at 97% on room air. CBC showed hemoglobin of 9.4 with WBC of 8.6 and platelets of 443. Chemistry was unremarkable. Urinalysis showed 25 leukocyte esterase but no nitrites or bacteria. CT of the abdomen and pelvis showed severe fecal impaction without evidence of perforation. Diffuse distention with borderline dilatation of the small bowel loops likely secondary to stool burden and progression of right lower lobe consolidation and increased size of the small right and moderate left pleural effusion with pleural nodularity with findings representing either pneumonitis or pneumonia however pulmonary neoplasm would be an additional consideration. He has been admitted to be managed for small bowel ileus possible GI bleed as well as recurrent bilateral pleural effusion with concern for underlying malignancy. [facility] Medical History Abnormal pleural fluid Kidney stones Former smoker On home oxygen therapy Anxiety and depression Chronic hypoxic respiratory failure COPD (chronic obstructive pulmonary disease) Former tobacco use Pneumothorax on right Pleural effusion on right Elevated blood pressure reading in office without diagnosis of hypertension (~2014) GERD (gastroesophageal reflux disease) Essential (primary) hypertension Hyperlipidemia Abdominal aortic aneurysm (AAA) Home Medications ?Medication ?Instructions ?Recorded ?Last Taken ?Type pravastatin 40 mg tablet 40 mg PO QHS high cholestero l 01/16/18 02/22/25 History aspirin 81 mg tablet,delayed 81 mg PO DAILY heart heal th 08/17/18 02/22/25 History release (Adult Low Dose Aspirin) escitalopram oxalate 10 mg tablet 10 mg PO DAILY depre ssion 02/23/25 02/22/25 History food supplemt, lactose-reduced 120 ml PO 4X/DAY supple ment #0 mL 02/27/25 Unknown Rx 0.08 gram-1.5 kcal/mL oral liquid (Ensure Plus High Protein) midodrine 5 mg tablet 10 mg (2 x 5 mg) PO TIDCM bl ood 02/27/25 Unknown Rx pressure #0 tabs acetaminophen 325 mg tablet 650 mg PO Q4H PRN Fever, p ain 03/06/25 Unknown History 1-07/21 albuterol sulfate 2.5 mg/3 mL 2.5 mg inhalation Q2H [place] N Dyspnea, 03/06/25 Unknown History (0.083 %) solution for nebulization wheezing ipratropium 0.5 mg-albuterol 3 mg 3 ml inhalation Q6H PRN 03/06/25 Unknown History (2.5 mg base)/3 mL nebulization dyspnea/wheezing soln tamsulosin 0.4 mg capsule 0.8 mg PO 1730 prostate 02/10 04/05 Unknown History Allergy/AdvReac Type Severity Reaction Status Date / Time No Known Allergies Allergy Verified 03/06/25 09:08 Family History Father Heart disease Hypertension Myocardial infarction TAA Sister Hypertension Mother Hypertension Surgical History S/P AAA repair History of placement of chest tube History of ear surgery History of inguinal hernia repair Social History household members: none Smoking Status: Former smoker how long ago did patient quit smoking: Quit 08/26/2011. alcohol intake: never substance use type: does not use ROS Constitutional Constitutional: Reports fatigue and malaise; Denies anorexia, chills, fever(s) or weakness Eyes Eyes: Denies change in vision or double vision ENT HEENT: Denies dysphagia, headache(s) or sore throat Cardiovascular Cardiovascular: Denies chest pain, dyspnea on exertion, edema, lightheadedness, orthopnea, palpitations, paroxysmal nocturnal dyspnea or rapid heart rate Respiratory/Chest Respiratory/Chest: Denies cough, hemoptysis, productive cough, shortness of breath at rest or shortness of breath with exertion Gastrointestinal Gastrointestinal: Reports coffee ground emesis; Denies abdominal pain Genitourinary Genitourinary: Denies burning urination, dysuria or hematuria Musculoskeletal Musculoskeletal: Denies joint stiffness Neurologic Neurologic: Denies confusion, dizziness, focal weakness, headache(s), numbness, seizure-like activity, seizures or syncope Psychiatric Psychiatric: Denies anxiety or depression Hematologic/Lymphatic Hematologic/Lymphatic: Denies anemia Vital Signs Vital Signs Vital Signs: 03/06/25 09:08 03/06/25 11:07 Temperature 98 F Temperature Source Oral Pulse Rate 98 71 Respiratory Rate 17 19 H Blood Pressure 123/71 H 119/65 Blood Pressure Mean 88 83 Pulse Ox 95 97 Oxygen Delivery Method Nasal Cannula Room Air Oxygen Flow Rate (L/min) 2 Weight Weight: 123 lb 3.814 oz Body Mass Index (BMI) 17.2 Physical Exam Const alert, oriented x3 and no apparent distress Constitutional Narrative: frail General Appearance: cooperative HEENT normocephalic, head/scalp atraumatic and hearing grossly normal bilaterally HEENT Narrative: dry oral mucosal membranes Eyes PERRL, EOMs intact bilaterally and conjunctivae normal Neck no lymphadenopathy and supple Resp normal respiratory effort, no retractions, no use of accessory muscles and clear to auscultation bilaterally Cardio regular rate, regular rhythm, S1 normal heart sound, S2 normal heart sound and no murmurs GI normal to inspection, nondistended, normoactive bowel sounds, soft to palpation, non-tender and non-distended Extremity normal to inspection, full ROM and no clubbing, cyanosis or edema Neuro oriented x3, CN's II-XII intact bilaterally, moves all extremities and no focal motor deficits Sensorium / Orientation: awake and alert Motor Exam: strength 5/5 throughout Psych affect normal Results Lab / Micro Data 03/06/25 09:24 03/06/25 09:24 Labs: Laboratory Results - last 24 hr 03/06/25 09:24: WBC 8.6, RBC 3.54 L, Hgb 9.4 L, Hct 29.7 L, MCV 83.9, MCH 26.6 L , MCHC 31.6 L, RDW Std Deviation 53.4 H, RDW Coeff of Wilbert 17.3 H, Plt Count 443, MPV 9.7, Immature Gran % (Auto) 0.500, Neut % (Auto) 88.8 H, Lymph % (Auto) 4.7 L, [place] % (Auto) 5.8, Eos % (Auto) 0.1, Baso % (Auto) 0.1, Absolute Neuts (auto) 7.6, Absolute Lymphs (auto) 0.40 L, Nucleated RBC % 0, Sodium 133, Potassium 3.7, Chloride 92 L, Carbon Dioxide 30.9, Anion Gap 10, BUN 16, Creatinine 0.62 L , Estim Creat Clear Calc 62.11, Est GFR (MDRD) Non-Af 99, BUN/Creatinine Ratio 25.0 H, Glucose 115 H, Lactic Acid < 1.0, Calcium 9.5, Magnesium 2.2, Total Bilirubin 0.29, AST 23, ALT 10, Alkaline Phosphatase 95, Total Protein 5.9, A lbumin 2.8 L, Globulin 3.1, Albumin/Globulin Ratio 0.9, Lipase 15 03/06/25 09:42: Urine Color Yellow, Urine Clarity Cloudy, Urine pH 6.0, Ur Specific [place] 1.025, Urine Protein 30 H, Urine Glucose (UA) Normal, Urine Ketones Negative, Urine Occult Blood 250 H, Urine Nitrite Negative, Urine Bilirubin Negative, Urine Urobilinogen Normal, Ur Leukocyte Esterase 25 H, Urine RBC > 100 SEEN, Urine WBC 5-10 SEEN, Ur Squamous Epith Cells 0 SEEN, Ur Renal Epithelial Cell 5-10 SEEN, Urine Bacteria 0 SEEN, Hyaline Casts 0-5 SEEN, Fine Granular Casts 0-5 SEEN, Urine Mucus 0 SEEN Micro: Microbiology 03/06/25 09:24 Stool Stool Occult Blood (DESHAUN) - Final Occult Blood Positive Imaging Radiology Impression Abdomen/Pelvis CT 03/06/25 09:18 IMPRESSION: 1. Severe fecal impaction without evidence of perforation. Diffuse distention/borderline dilation of the small bowel loops, likely secondary to stool burden. 2. Progression of the right lower lobe consolidation, and increased size of the small right and moderate left pleural effusions with pleural nodularity. Findings may represent progressing pneumonitis/pneumonia, however pulmonary neoplasm is an additional consideration. Consider diagnostic thoracentesis to evaluate for malignancy. 3. Nonobstructing bilateral renal calculi. Reading Location: [facility] Assessment & Plan Assessment/Plan (1) GI bleed: PLAN: Plan #Intestinal ileus in the setting of possible GI bleed * [facility]. Was admitted with a complaint of hematemesis. * Is not on any blood thinners. Had CT abdomen which showed severe fecal impaction without evidence of diffuse distention with borderline dilatation of small bowel loops likely secondary to stool burden as well as progression of right lower lobe consolidation and increased size of the small right and moderate left pleural effusions with pleural nodularity * Keep n.p.o. Hydrate with IV fluids. GI consulted from the ED. Will place a consult gastroenterology * IV pantoprazole 40 mg twice daily. Check stool for occult blood. * [facility]r ED, GI asked to hold off on any enemas or suppositories for now, so will await GI evaluation. * Hold aspirin * #Bilateral pleural effusions with right lower lobe consolidation * Did have this during previous admission and the pleural effusion is actually worsened. * He had thoracentesis with analysis of the pleural fluid back on 04/26/2024 which showed atypical mesothelial proliferation * Patient and his daughter tell me he did follow up with oncology and pulmonology. They were told he did not have cancer. * however, patient has lost ~ 50+ pounds within a year. CXR findings as above * will get thoracentesis with fluid analysis to evaluate for any malignancy. Will consult pulmonology also * Titrate oxygen to maintain saturation above 90%. Breathing treatments with bronchodilators. * #History of orthostatic hypotension: On midodrine #Hyperlipidemia: On statin #BPH: On Flomax #Depression: on escitalopram DVT prophylaxis: SCDs CODE STATUS:full code * Patient counseled extensively about different types of CODE STATUS including full code, DNR CCA and DNR CCA. * Patient elects to be full code. * Total [id number] time 16 minutes. Charges/Coding Visit Charges Inpatient E&M: 47365 Init Hosp L3 Procedures Hospitalists Procedures: 31299 Advncd Care Plan 30 Min
[2025-03-06] MEDS: Metoclopramide 10 MG/2 ML Vial IV (11:31)
--- NOTE | 2025-03-06 11:40 | RAD_ITS ---
PROCEDURE: ABDOMEN SINGLE VIEW (PORTABLE) N/A REASON FOR EXAM: NG INSERTION TECHNIQUE: Single view abdomen. COMPARISON: Same day CT abdomen pelvis. FINDINGS: Support devices: Gastric tube placement with side hole at the level of the diaphragm, and tip overlying the expected region of the stomach. Retained contrast within the bilateral renal collecting systems. Partially visualized EVAR. Bowel gas: The visualized small bowel loops remain distended. Bones: There are degenerative changes of the spine. RAD/Abdomen Single View (Portable) IMPRESSION: Gastric tube placement as described. Reading Location: [id number]
[2025-03-06] MEDS: Tetracaine/Benzocaine/Butamben 1 APPLIC TOPICAL (11:58)
--- NOTE | 2025-03-06 12:13 | EX.PCM.CON.G ---
HPI Consult Data Date of Consult: 03/07/25 HPI Narrative Reason for Consultation: Coffee-ground emesis HPI Narrative: BUZZ PUGH, is a 74 M who presents from the transitional care unit for possible upper GI bleed secondary to coffee-ground emesis. P he has a complicated past medical history of COPD, GERD, HTN, AAA status postrepair. Patient was in the hospital for several days regarding progressive weight loss, orthostatic hypotension causing possible presyncope and syncope. He was started on midodrine. The patient has been having more ongoing abdominal distention along with chronic nausea and constipation. He does have a chronic Ortega catheter. although I suspect that it was secondary to urinary retention from BPH. His labs in ED significant for normocytic anemia with a hemoglobin ranging from 9-9.5. CT/Abdomen/Pelvis W IV Cont ONLY IMPRESSION: 1. Severe fecal impaction without evidence of perforation. Diffuse distention/borderline dilation of the small bowel loops, likely secondary to stool burden. 2. Progression of the right lower lobe consolidation, and increased size of the small right and moderate left pleural effusions with pleural nodularity. Findings may represent progressing pneumonitis/pneumonia, however pulmonary neoplasm is an additional consideration. Consider diagnostic thoracentesis to evaluate for malignancy. 3. Nonobstructing bilateral renal calculi. I requested that patient get a NG tube placed in the ED due to his dilated small bowel and stomach with air-fluid levels. [facility] Medical History Abnormal pleural fluid Kidney stones Former smoker On home oxygen therapy Anxiety and depression Chronic hypoxic respiratory failure COPD (chronic obstructive pulmonary disease) Former tobacco use Pneumothorax on right Pleural effusion on right Elevated blood pressure reading in office without diagnosis of hypertension (~2014) GERD (gastroesophageal reflux disease) Essential (primary) hypertension Hyperlipidemia Abdominal aortic aneurysm (AAA) Home Medications ?Medication ?Instructions ?Recorded ?Last Taken ?Type pravastatin 40 mg tablet 40 mg PO QHS high cholesterol 01/16/18 02/22/25 History aspirin 81 mg tablet,delayed 81 mg PO DAILY heart health 08/17/18 02/22/25 History release (Adult Low Dose Aspirin) escitalopram oxalate 10 mg tablet 10 mg PO DAILY depression 02/23/25 02/22/25 History food supplemt, lactose-reduced 120 ml PO 4X/DAY supplement #0 mL 02/27/25 Unknown Rx 0.08 gram-1.5 kcal/mL oral liquid (Ensure Plus High Protein) midodrine 5 mg tablet 10 mg (2 x 5 mg) PO TIDCM blood 02/27/25 Unknown Rx pressure #0 tabs acetaminophen 325 mg tablet 650 mg PO Q4H PRN Fever, pain 03/06/25 Unknown History 1-07/21 albuterol sulfate 2.5 mg/3 mL 2.5 mg inhalation Q2H PRN Dyspnea, 03/06/25 Unknown History (0.083 %) solution for nebulization wheezing ipratropium 0.5 mg-albuterol 3 mg 3 ml inhalation Q6H PRN 03/06/25 Unknown History (2.5 mg base)/3 mL nebulization dyspnea/wheezing soln tamsulosin 0.4 mg capsule 0.8 mg PO 1730 prostate 03/06/25 Unknown History Allergy/AdvReac Type Severity Reaction Status Date / Time No Known Allergies Allergy Verified 03/06/25 09:08 Family History Father Heart disease Hypertension Myocardial infarction TAA Sister Hypertension Mother Hypertension Surgical History S/P AAA repair History of placement of chest tube History of ear surgery History of inguinal hernia repair Social History household members: none Smoking Status: Former smoker how long ago did patient quit smoking: Quit 08/26/2011. alcohol intake: never substance use type: does not use ROS Constitutional Constitutional: Reports fatigue and malaise; Denies anorexia, chills, fever(s) or weakness Eyes Eyes: Denies change in vision or double vision ENT HEENT: Denies dysphagia, headache(s) or sore throat Cardiovascular Cardiovascular: Denies chest pain, dyspnea on exertion, edema, lightheadedness, orthopnea, palpitations, paroxysmal nocturnal dyspnea or rapid heart rate Respiratory/Chest Respiratory/Chest: Denies cough, hemoptysis, productive cough, shortness of breath at rest or shortness of breath with exertion Gastrointestinal Gastrointestinal: Reports coffee ground emesis; Denies abdominal pain Genitourinary Genitourinary: Denies burning urination, dysuria or hematuria Musculoskeletal Musculoskeletal: Denies joint stiffness Neurologic Neurologic: Denies confusion, dizziness, focal weakness, headache(s), numbness, seizure-like activity, seizures or syncope Psychiatric Psychiatric: Denies anxiety or depression Hematologic/Lymphatic Hematologic/Lymphatic: Denies anemia Physical Exam Const alert, oriented x3 and no apparent distress Constitutional Narrative: frail General Appearance: cooperative HEENT normocephalic, head/scalp atraumatic and hearing grossly normal bilaterally HEENT Narrative: dry oral mucosal membranes Eyes PERRL, EOMs intact bilaterally and conjunctivae normal Neck no lymphadenopathy and supple Resp normal respiratory effort, no retractions, no use of accessory muscles and clear to auscultation bilaterally Cardio regular rate, regular rhythm, S1 normal heart sound, S2 normal heart sound and no murmurs GI normal to inspection, nondistended, normoactive bowel sounds, soft to palpation, non-tender and non-distended Extremity normal to inspection, full ROM and no clubbing, cyanosis or edema Neuro oriented x3, CN's II-XII intact bilaterally, moves all extremities and no focal motor deficits Sensorium / Orientation: awake and alert Motor Exam: strength 5/5 throughout Psych affect normal Lab / Micro Data 03/07/25 04:42 03/07/25 04:42 Labs: Laboratory Results - last 24 hr 03/06/25 09:24: WBC 8.6, RBC 3.54 L, Hgb 9.4 L, Hct 29.7 L, MCV 83.9, MCH 26.6 L, MCHC 31.6 L, RDW Std Deviation 53.4 H, RDW Coeff of Wilbert 17.3 H, Plt Count 443, MPV 9.7, Immature Gran % (Auto) 0.500, Neut % (Auto) 88.8 H, Lymph % (Auto) 4.7 L, Gates % (Auto) 5.8, Eos % (Auto) 0.1, Baso % (Auto) 0.1, Absolute Neuts (auto) 7.6, Absolute Lymphs (auto) 0.40 L, Nucleated RBC % 0, Sodium 133, Potassium 3.7, Chloride 92 L, Carbon Dioxide 30.9, Anion Gap 10, BUN 16, Creatinine 0.62 L, Estim Creat Clear Calc 62.11, Est GFR (MDRD) Non-Af 99, BUN/Creatinine Ratio 25.0 H, Glucose 115 H, Lactic Acid < 1.0, Calcium 9.5, Magnesium 2.2, Total Bilirubin 0.29, AST 23, ALT 10, Alkaline Phosphatase 95, Total Protein 5.9, Albumin 2.8 L, Globulin 3.1, Albumin/Globulin Ratio 0.9, Lipase 15 03/06/25 09:42: Urine Color Yellow, Urine Clarity Cloudy, Urine pH 6.0, Ur Specific Cardwell 1.025, Urine Protein 30 H, Urine Glucose (UA) Normal, Urine Ketones Negative, Urine Occult Blood 250 H, Urine Nitrite Negative, Urine Bilirubin Negative, Urine Urobilinogen Normal, Ur Leukocyte Esterase 25 H, Urine RBC > 100 SEEN, Urine WBC 5-10 SEEN, Ur Squamous Epith Cells 0 SEEN, Ur Renal Epithelial Cell 5-10 SEEN, Urine Bacteria 0 SEEN, Hyaline Casts 0-5 SEEN, Fine Granular Casts 0-5 SEEN, Urine Mucus 0 SEEN Micro: Microbiology 03/06/25 09:24 Stool Stool Occult Blood (DESHAUN) - Final Occult Blood Positive Imaging Radiology Impression Abdomen/Pelvis CT 03/06/25 09:18 IMPRESSION: 1. Severe fecal impaction without evidence of perforation. Diffuse distention/borderline dilation of the small bowel loops, likely secondary to stool burden. 2. Progression of the right lower lobe consolidation, and increased size of the small right and moderate left pleural effusions with pleural nodularity. Findings may represent progressing pneumonitis/pneumonia, however pulmonary neoplasm is an additional consideration. Consider diagnostic thoracentesis to evaluate for malignancy. 3. Nonobstructing bilateral renal calculi. Reading Location: [facility] KUB X-Ray 03/06/25 11:40 IMPRESSION: Gastric tube placement as described. Reading Location: [facility] Assessment & Plan Assessment/Plan (1) GI bleed: PLAN: Plan 74-year-old gentleman with distended abdomen and imaging evidence of severe constipation with ileus and possible gastroparesis without gastric outlet obstruction seen in the setting of possible GI bleed. Midodrine, can be associated with an ileus. Specifically, some case reports suggest that midodrine could have an inhibitory effect on intestinal motility, possibly leading to severe ileus. -Recommend to keep NG tube to low intermittent suction -The patient would likely need to have upper endoscopy tomorrow to evaluate cause of upper GI bleed -Protonix 40 mg IV twice daily -Stop midodrine -Workup for adrenal insufficiency in the setting of hypotension as he may need a mineralocorticoid or glucocorticoid for his hypotension Charges/Coding Visit Charges Inpatient E&M: 87151 Init Hosp L3
--- NOTE | 2025-03-06 12:45 | ED.RN ---
NG advanced 10 cm.
[2025-03-06] MEDS: 0.9% Saline Lock 10 ML Syringe IV (14:47)
[2025-03-06] MEDS: Oxymetazoline 0.05% 1 SPRAY SPRAY.BTL 2 SPRAY NASAL (14:47)
[2025-03-06] MEDS: 0.9% Normal Saline (1000mL) 1,000 ML 125 ML IV (14:48)
--- NOTE | 2025-03-06 17:10 | EKG12_ITS ---
Test Reason : TACHY Blood Pressure : */* mmHG Vent. Rate : 155 BPM Atrial Rate : 155 BPM P-R Int : 80 ms QRS Dur : 72 ms QT Int : 326 ms P-R-T Axes : * 71 72 degrees QTcB Int : 523 ms Sinus tachycardia with short [place] Low voltage QRS Nonspecific ST and T wave abnormality Abnormal ECG No previous ECGs available Confirmed by Andres Mcginnis ([id number]), film or videotape editor MEDARDO CHRISTINE ([id number]) on 03/13/2025 1:57:10 PM Referred By: KIRK Confirmed By: Andres Mcginnis
[2025-03-06 18:18] LABS: Absolute Lymphocyte Count 0.58 X10^3/uL (0.83-4.51); Absolute Neutrophil Count 6.3 X10^3/uL (2.0-7.7); Basophil# 0.02 X10^3/uL; Basophil% 0.3 % (0-1); Eosinophil# 0.01 X10^3/uL; Eosinophils% 0.1 % (0-5); Hematocrit 28.8 % (40-54); Lymphocyte # 0.58 X10^3/ul (0.83-4.51); Lymphocyte % 7.8 % (19-41); Mean Corp Hgb Conc 31.3 g/dL (32-36); Mean Corpuscular Hgb 26.2 pg (27.0-32.0); Mean Platelet Vol. 9.3 fl (6.2-12.0); Monocyte# 0.49 X10^3/uL; Monocyte% 6.6 % (0-10); NRBC Flagged by Analyzer 0 % (0-5); Neutrophil # 6.26 X10^3/uL (2.7-7.7); Neutrophil % 84.8 % (47-70); POSITIVE DIFFERENTIAL YES; Platelet Count 416 K/mm3 (150-450); RBC Distribution Width CV 17.4 % (11.6-14.6); RBC Distribution Width SD 53.6 fl (35.1-43.9); Red Blood Count 3.43 M/mm3 (4.6-6.2); White Blood Count 7.4 K/mm3 (4.4-11.0)
[2025-03-06] MEDS: Electrolyte Solution/Peg's 4000 ML PO (20:23)
[2025-03-06] MEDS: Pravastatin 40 MG Tablet PO (21:05)
[2025-03-06] MEDS: 0.9% Normal Saline (1000mL) 1,000 ML 150 ML IV (22:51)
[2025-03-07] VITALS (21 sets, daily range): BP systolic 86–133; BP diastolic 49–72; PULSE 82–142; RESP 16–26; TEMP 36.3–36.8; O2SAT 89–98; BMI 17.2
--- NOTE | 2025-03-07 | FLU_PTH ---
PATIENT: BUZZ PUGH LOC: [facility] U#:[id number] AGE/SX: 74/M ROOM: [facility] RE03/06/[address]: Dr. Nic Flynn MD : [id number] BED: 1 DIS: 03/26/2025 SPEC #: [id number] RECD: 03/07/25 09:30 STATUS: CLEMENT SALINAS #: [id number] HAI: 03/07/25 00:[address]: Katlin Sullivan DEPT: CYTOLOGY RECD BY: Annette Gusman ENTERED: 03/07/25 10:26 SP TYPE: Fluid OTHR DR: Dr. Brent Martinez DO Tissues: Pleural fluid, NOS Procedures: Immunohistochemical Stains Special Stain Group II Surgery Specimen Level IV Cytospin Fluid IHC Stain ADDITIONAL HEADER OPERATION: Thoracentesis - left chest PRE-OP DIAGNOSIS: Pleural effusion TISSUE SUBMITTED: A- Thoracentesis fluid for cytology DIAGNOSIS CYTOLOGY A. Pleural fluid, left, thoracentesis (cytospin and cellblock): * No malignant cells identified - see note and Comment. * Reactive mesothelial cells, acute inflammation. * Note: IHCs were performed. The cells are positive for calretinin and negative for MOC31, supporting the diagnosis. COMMENT Selected slides/images were reviewed in intradepartmental consultation by Dr Danyell Castro (Cytopathology division, [facility]). CYTOLOGY STUDY Slides are reviewed. All matched controls reacted appropriately. These tests were developed and their performance characteristics determined by [facility]. They may not have been cleared or approved by the U.S. Food and Drug Administration. The FDA has determined that such clearance or approval is not necessary.? The above immunohistochemical/dualISH?markers are ordered and reviewed by the Pathologist. CYTOLOGY GROSS A. Received is 90 ml of dark-patricia- cloudy fluid labeled with the patient's name and and designated per the requisition as Thoracentesis fluid. Submitted for cytology and cell block preparation. Mr 03/07/2025 CPT: 74011, 16238 ,[id number]
[2025-03-07 04:53] LABS: Absolute Lymphocyte Count 0.44 X10^3/uL (0.83-4.51); Absolute Neutrophil Count 5.9 X10^3/uL (2.0-7.7); Basophil# 0.01 X10^3/uL; Basophil% 0.1 % (0-1); Eosinophil# 0.01 X10^3/uL; Eosinophils% 0.1 % (0-5); Hemoglobin 8.2 g/dL (13.0-16.5); Lymphocyte # 0.44 X10^3/ul (0.83-4.51); Lymphocyte % 6.5 % (19-41); Mean Corp Hgb Conc 31.5 g/dL (32-36); Mean Corpuscular Hgb 26.7 pg (27.0-32.0); Mean Corpuscular Volume 84.7 fL (80-94); Mean Platelet Vol. 9.4 fl (6.2-12.0); Monocyte# 0.42 X10^3/uL; Monocyte% 6.2 % (0-10); NRBC Flagged by Analyzer 0 % (0-5); Neutrophil # 5.89 X10^3/uL (2.7-7.7); Neutrophil % 86.7 % (47-70); POSITIVE DIFFERENTIAL YES; Platelet Count 386 K/mm3 (150-450); RBC Distribution Width CV 17.6 % (11.6-14.6); RBC Distribution Width SD 54.4 fl (35.1-43.9); Red Blood Count 3.07 M/mm3 (4.6-6.2); White Blood Count 6.8 K/mm3 (4.4-11.0)
[2025-03-07] MEDS: 0.9% Normal Saline (1000mL) 1,000 ML 150 ML IV (05:54)
[2025-03-07 06:31] LABS: LDH 154 U/L (87-241)
[2025-03-07 06:37] LABS: Anion Gap 13 (5-15); BUN 16 mg/dL (4-19); BUN/Creat Ratio 25.4 RATIO (10-20); Carbon Dioxide 30.1 mmol/L (21.0-32.0); Chloride 96 mmol/L (98-108); Creatinine, Serum 0.63 mg/dL (0.70-1.20); EST Glomerular Filtration Rate 98 (>60); Estimated Creatinine Clearance 62.11 ml/min (50-250); Glucose 76 mg/dL (70-99); Potassium 3.7 mmol/L (3.3-5.1); Protein, Total 5.2 g/dL (5.9-8.4); Sodium Level 139 mmol/L (133-145)
--- NOTE | 2025-03-07 07:00 | US_ITS ---
PROCEDURE: THORACENTESIS W US 03/07/2025 REASON FOR EXAM: BILATERAL PLEURAL EFFUSION TECHNIQUE: The procedure as well as the benefits and possible complications including infection, bleeding and pneumothorax were explained to the patient. Informed consent was obtained. Under direct sonographic guidance, a 5 Gambian catheter was placed into the left pleural cavity. 390 mL of patricia colored fluid was aspirated. A 100 mL sample was sent to the laboratory for analysis. COMPARISON: None FINDINGS: Successful ultrasound-guided left thoracentesis. US/Thoracentesis W US IMPRESSION: Successful left ultrasound-guided thoracentesis. Reading Location: [facility]
[2025-03-07] MEDS: Escitalopram Oxalate 10 MG Tablet PO (08:11)
[2025-03-07] MEDS: Midodrine HCl 5 MG Tablet 10 MG PO ×3 (08:11→16:31)
[2025-03-07] MEDS: Lidocaine 2% (20 ml mdv) 20 ML Vial INFILT (08:55)
--- NOTE | 2025-03-07 09:00 | RAD_ITS ---
EXAM: Inspiration expiration chest views. CLINICAL HISTORY: Status post left thoracentesis. COMPARISON: Prior study dated March 06, 2025. TECHNIQUE: AP inspiration expiration views were obtained. FINDINGS: No evidence of pneumothorax following the left thoracentesis. RAD/Chest Insp/Exp 2 View IMPRESSION: No evidence of pneumothorax following the left thoracentesis. Reading Location: [place] [address]
--- NOTE | 2025-03-07 09:07 | ECHOD_ITS ---
Reason For Study Reason For Study: ARRHYTHMIA Procedure This was a 2D Doppler, Color Flow transthoracic echocardiogram. The study was technically difficult. The study was technically limited. Limited windows, exam done from subcostal window. Patient scanned supine. Exam performed portable in patient room. Left Ventricle Normal left ventricle. The estimated ejection fraction is 55-60 %. Right Ventricle Normal right ventricle. Normal systolic function. Atria Normal left atrium. Normal right atrium. Mitral Valve The mitral valve is structurally normal. No prolapse or stenosis seen. Tricuspid Valve Normal tricuspid valve. Aortic Valve Trisinus/trileaflet aortic valve. Pulmonic Valve The pulmonic valve is not well visualized. Great Vessels The aortic root is not well visualized. MMode/2D Measurements & Calculations LVIDd: 3.9 cm IVSd: 0.86 cm LVOT diam: 2.1 cm LVIDs: 1.9 cm LVPWd: 0.85 cm LVOT area: 3.3 cm2 RVDd: 3.3 cm FS: 50.0 % LVAd ap4: 19.1 cm2 SV(MOD-sp4): 31.2 ml SV(sp4-el): 31.5 ml LVLd ap4: 7.1 cm SI(MOD-sp4): 18.2 ml/m2 EDV(MOD-sp4): 44.1 ml EDV(sp4-el): 44.1 ml LVAs ap4: 8.8 cm2 LVLs ap4: 5.3 cm ESV(MOD-sp4): 12.8 ml ESV(sp4-el): 12.6 ml EF(MOD-sp4): 70.9 % EF(sp4-el): 71.5 % Ao sinus diam: 3.4 cm TAPSE: 2.1 cm RA A4 area: 12.7 cm2 Doppler Measurements & Calculations Ao V2 max: 103.3 cm/sec LV V1 max: 88.9 cm/sec TR max abbi: 248.7 cm/sec Ao max P.3 mmHg LV V1 max P.2 mmHg TR max P.7 mmHg RIRI(V,D): 2.9 cm2 ECHO/Echo Complete Interpretation Summary The estimated ejection fraction is 55-60 %. No significant valvular abnormality No significant change from previous echo Ordering Physician: Katlin Sullivan Performed By: Maria Luisa Chavez RDCS
[2025-03-07 09:34] LABS: Cytology, Body Fluid / CSF SEE PATHOLOGY REPORT
[2025-03-07 09:57] LABS: Phosphorus 3.2 mg/dL (2.7-4.5)
[2025-03-07 10:00] LABS: Magnesium 2.1 mg/dL (1.5-2.2)
[2025-03-07 10:01] LABS: Body Fluid Mononuclear WBC # 0.093 10^3/uL; Body Fluid Polynuclear WBC # 0.105 10^3/uL; Body Fluid Total Cells Counted 0.226 10^3/ul; Red Cell Count/Body Fluid 0.011 10^6/ul; White Blood Count/Body Fluid 0.198 10^3/uL
[2025-03-07] MEDS: 0.9% Saline Lock 10 ML Syringe IV (10:05)
[2025-03-07] MEDS: Pantoprazole Sodium 40 MG in 0.9% Normal Saline (100mL MB+) 100 ML 330 MG IV ×2 (10:06→23:10)
[2025-03-07 11:42] LABS: Appearance/Body Fluid CLOUDY; Auto B Fluid Analyzer BKGD Ct COUNTS W/IN LIMITS (W/IN LIMITS); Color/Body Fluid PINK; Lymphocytes 13 %; Neutrophil (Segs) 63 %; Source- Body Fluid THORACENTESIS
[2025-03-07 11:43] LABS: Body Fluid QC Type(s) 0527 BF1; Macrophages 6 %; Mesothelial Cells 6 %; Monocytes 12 %
[2025-03-07 13:15] LABS: Glucose, Body Fluid 69 mg/dL (Not Establ.); LDH,Body Fluid 83 Units/L (Not Establ.); Protein, Body Fluid 1.8 g/dL (Not Establ.)
--- NOTE | 2025-03-07 13:45 | PN_ITS ---
Subjective Subjective Patient seen and examined. He had no active complaints. He remained on 2L of oxygen. He had thoracentesis done today and is awaiting EGD later today. Review of systems is otherwise negative. Objective Data Objective Data Vital Signs: Vital Signs Temp Pulse Resp BP Pulse Ox O2 Del Method O2 Flow Rate 97.8 F 94 18 119/53 L 96 Nasal Cannula 2 03/07/25 08:06 03/07/25 09:26 03/07/25 09:26 03/07/25 09:26 03/07/25 08:06 03/07/25 10:00 03/07/25 10:00 Oxygen Flow Rate (L/min) 2 Oxygen Delivery Method Nasal Cannula Weight: 123 lb 3.814 oz Body Mass Index (BMI) 17.2 Intake & Output: Intake and Output for Last 24 Hours 03/05/25 03/06/25 03/07/25 23:59 23:59 23:59 Intake Total 2240 / 2240 1120 / 1120 Output Total 1100 / 1100 2590 / 2590 Balance 1140 / 1140 -1470 / -1470 Lab / Micro Data 03/07/25 04:42 03/07/25 04:42 Labs: Laboratory Results - last 24 hr 03/06/25 09:24: Cortisol AM Sample 32.00 H 03/06/25 18:10: WBC 7.4, RBC 3.43 L, Hgb 9.0 L, Hct 28.8 L, MCV 84.0, MCH 26.2 L , MCHC 31.3 L, RDW Std Deviation 53.6 H, RDW Coeff of Wilbert 17.4 H, Plt Count 416, MPV 9.3, Immature Gran % (Auto) 0.400, Neut % (Auto) 84.8 H, Lymph % (Auto) 7.8 L, [place] % (Auto) 6.6, Eos % (Auto) 0.1, Baso % (Auto) 0.3, Absolute Neuts (auto) 6.3, Absolute Lymphs (auto) 0.58 L, Nucleated RBC % 0 03/06/25 20:05: Cortisol PM Sample 20.30 H 03/07/25 04:42: WBC 6.8, RBC 3.07 L, Hgb 8.2 L, Hct 26.0 L, MCV 84.7, MCH 26.7 L , MCHC 31.5 L, RDW Std Deviation 54.4 H, RDW Coeff of Wilbert 17.6 H, Plt Count 386, MPV 9.4, Immature Gran % (Auto) 0.400, Neut % (Auto) 86.7 H, Lymph % (Auto) 6.5 L, [place] % (Auto) 6.2, Eos % (Auto) 0.1, Baso % (Auto) 0.1, Absolute Neuts (auto) 5.9, Absolute Lymphs (auto) 0.44 L, Nucleated RBC % 0, Sodium 139, Potassium 3.7, Chloride 96 L, Carbon Dioxide 30.1, Anion Gap 13, BUN 16, Creatinine 0.63 L , Estim Creat Clear Calc 62.11, Est GFR (MDRD) Non-Af 98, BUN/Creatinine Ratio 25.4 H, Glucose 76, Calcium 9.0, Phosphorus 3.2, Magnesium 2.1, Lactate Dehydrogenase 154, Total Protein 5.2 L 03/07/25 09:24: Fluid Source THORACENTESIS, Fluid Color PINK, Fluid Appearance CLOUDY, Fluid WBC 0.198, Fluid RBC 0.011, Fluid Tot Cell Count 0.226, Fld Polynuclear WBCs # 0.105, Fld Polynuclear WBCs % 53.0, Fluid Mononuclear WBCs 0.093, Fld Mononuclear WBCs % 47.0, Fluid Neutrophils 63, Fluid Lymphocytes 13, Fluid Monocytes 12, Fluid Macrophages 6, Fld Mesothelial Cells 6, Fl Pathologist Comment May follow, Fluid Glucose 69, Fluid Total Protein 1.8, Fluid LDH 83, Fluid Comment 2 SEE COMMENT Micro: Microbiology 03/06/25 09:24 Stool Stool Occult Blood (DESHAUN) - Final Occult Blood Positive Radiography Diagnostic Testing: Radiology Impression Thoracentesis Ultrasound 03/07/25 07:00 IMPRESSION: Successful left ultrasound-guided thoracentesis. Reading Location: [facility]1 Chest X-Ray 03/07/25 09:00 IMPRESSION: No evidence of pneumothorax following the left thoracentesis. Reading Location: [facility]-1 Physical Exam Const alert, oriented x3 and no apparent distress Constitutional Narrative: frail General Appearance: cooperative HEENT normocephalic, head/scalp atraumatic and hearing grossly normal bilaterally Eyes PERRL, EOMs intact bilaterally and conjunctivae normal Neck no lymphadenopathy and supple Resp normal respiratory effort, no retractions, no use of accessory muscles and clear to auscultation bilaterally Cardio regular rate, regular rhythm, S1 normal heart sound, S2 normal heart sound and no murmurs GI normal to inspection, nondistended, normoactive bowel sounds, soft to palpation, non-tender and non-distended Extremity normal to inspection, full ROM and no clubbing, cyanosis or edema Neuro oriented x3, CN's II-XII intact bilaterally, moves all extremities and no focal motor deficits Sensorium / Orientation: awake and alert Motor Exam: strength 5/5 throughout Psych thought process normal, cooperative and affect normal Appearance: appropriate Assessment & Plan Assessment/Plan (1) GI bleed: PLAN: Plan #Intestinal ileus in the setting of possible GI bleed * Admit to [facility]. Was admitted with a complaint of hematemesis. * Is not on any blood thinners. Had CT abdomen which showed severe fecal impaction without evidence of diffuse distention with borderline dilatation of small bowel loops likely secondary to stool burden as well as progression of right lower lobe consolidation and increased size of the small right and moderate left pleural effusions with pleural nodularity * Keep n.p.o. Hydrate with IV fluids. * for EGD today. * IV pantoprazole 40 mg twice daily. stool for occult blood was positive. * * #Bilateral pleural effusions with right lower lobe consolidation * Did have this during previous admission and the pleural effusion is actually worsened. * He had thoracentesis with analysis of the pleural fluid back on 04/26/2024 which showed atypical mesothelial proliferation * Patient and his daughter tell me he did follow up with oncology and pulmonology. They were told he did not have cancer. * however, patient has lost ~ 50+ pounds within a year. CXR findings as above * had thoracentesis today with removal of 390 cc of fluid from the left pleural cavity * await thoracentesis analysis results to determine if pulmonology consult is warranted. * Titrate oxygen to maintain saturation above 90%. Breathing treatments with bronchodilators. * #History of orthostatic hypotension: On midodrine. Midodrine dc'd per GI. #Hyperlipidemia: On statin #BPH: On Flomax #Depression: on escitalopram DVT prophylaxis: SCDs CODE STATUS:full code * Charges/Coding Visit Charges Inpatient E&M: 46183 Subs Hosp L2
--- NOTE | 2025-03-07 14:11 | CASEMGMT ---
Addendum entered by Fe Brannon 03/07/25 14:24: Per previousl note, pt O2 is through [employer]. Pt has a concentrator and portable tanks. Original Note: GERMAIN SMITH Chart Review: Patient was admitted 02/23/25 with a syncopal event at home. Pt stated he had felt off, lightheaded and dizzy as well as flushed just before he passed out unfortunately hitting a piece of furniture, striking his left lower ribs as well as under his chin. Pt was noted to have orthostatic hypotension and decreased appetite. Pt was started on Midodrine. DC'd to TCU on 02/27/25. On 03/06/25 pt was sent to the ED for coffee ground emesis. GERMAIN SMITH into pt room, discussed pt care. Pt states he wishes to return home at time of DC. Pt lives alone, reports that his daughter lives near by and is able to assist him. GERMAIN SMITH discussed HHC option, pt denies wanting any HHC. Follow therapy, plan for a safe DC.
[2025-03-07] MEDS: Lactated Ringers 1,000 ML 15 ML IV (14:32)
--- NOTE | 2025-03-07 14:51 | PCM.PRE.AN2 ---
ASA Classification* ASA Classification ASA Classification: 3 Assessment & Plan Anesthesia* Anesthesia Assessment Anesthesia Assessment: Discussed sedation and/or anesthesia options, risks, benefits, and alternatives with patient/parents/legal guardian/POA. Questions invited. The patient/parents/legal guardian/POA seems to understand and agrees to proceed with anesthesia plan. Reviewed the physical assessment, medical history, allergy history and patient home medications list prior to surgery/procedure/anesthetic and documented any changes. Performed airway and anesthesia risk assessments. Anesthesia Type Anesthesia Type: MAC History Source History Obtained from:: Patient and Chart Anesthesia Focused Assessment* Temperature: 97.8 F Pulse Rate: 94 Blood Pressure: 119/53 Respiratory Rate: 18 Pulse Ox: 96 Oxygen Delivery Method: Nasal Cannula Oxygen Flow Rate (L/min): 2 Airway Assessment Mouth opens: >3 cm Mallampati Score: II Teeth Condition: Caps/Crowns (Patient has a crown on the right lower molar. ), Dentures (Patient has a permanent upper bridge.) and Missing (Patient has a couple of missing teeth. Rest of the teeth are tight.) Neck Range of motion (ROM): Full ROM Focused Labs Anesthesia Preop lab: CBC WBC 6.8 K/mm3 (4.4-11.0) 03/07/25 04:42 03/07/25 RBC 3.07 M/mm3 (4.6-6.2) L 03/07/25 04:42 03/07/25 Hgb 8.2 g/dL (13.0-16.5) L 03/07/25 04:42 03/07/25 Hct 26.0 % (40-54) L 03/07/25 04:42 03/07/25 Plt Count 386 K/mm3 (150-450) 03/07/25 04:42 03/07/25 CHEMISTRY Potassium 3.7 mmol/L (3.3-5.1) 03/07/25 04:42 03/07/25 Sodium 139 mmol/L (133-145) 03/07/25 04:42 03/07/25 Magnesium 2.1 mg/dL (1.5-2.2) 03/07/25 04:42 03/07/25 Phosphorus 3.2 mg/dL (2.7-4.5) 03/07/25 04:42 03/07/25 BUN 16 mg/dL (4-19) 03/07/25 04:42 03/07/25 Creatinine 0.63 mg/dL (0.70-1.20) L 03/07/25 04:42 03/07/25 Glucose 76 mg/dL (70-99) 03/07/25 04:42 03/07/25 TSH 4.780 uIU/mL (0.300-4.200) H 03/03/25 05:21 03/03/25 COAG PT 14.0 SECONDS (11.7-14.9) 04/25/24 07:34 04/25/24 Pre-Assessment Diagnosis/Proposed Procedure Planned Operative Procedure(s): Esophagogastroduodenoscopy with possible cautery and/or injection therapy. 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 When Was Last Pacemaker Check QUESTION #4 FULL TEXT: You/Your Family Experience fever (hyperthermia) with Anesthesia Last Oral Intake Last Oral intake: Last Oral Intake NPO since 00:01 03/07/25 08:19 Meds taken in AM with sips of No 03/07/25 08:19 water? 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 Female HX of Motion Sickness HX of N/V After Surgery Non-Smoker Duration of Surgery greater than 60 minutes Number of Risk Factors PONV Score Height & Weight Height & Weight: Anesthesia: Height & Weight Height 5 ft 11 in 03/07/25 08:19 Weight: 55.9 kg 03/07/25 08:19 Body Mass Index (BMI) 17.2 03/07/25 08:19 Respiratory Assessment Respiratory Assessment - asphalt tar and gravel roofer: Respiratory Tract Infection Hx - asphalt tar and gravel roofer Hx Respiratory Tract Infection No 03/06/25 19:21 Any additional information?: Yes Hx Respiratory Tract Infection: Yes History of Anesthesia Respiratory Infection details: Patient has a recent pneumonia. Has been on antibiotics. Has been on oxygen nasal cannula for about a month. STOP Sleep Apnea STOP Sleep Apnea - asphalt tar and gravel roofer: STOP Sleep Apnea - asphalt tar and gravel roofer Hx Hypertension Yes: resolved HTN 03/07/25 13:44 Hx Sleep Apnea No 03/06/25 12:51 CPAP BIPAP Do you snore loudly (louder No 03/06/25 12:51 than talking or can be heard Do you often feel tired/ No 03/06/25 12:51 fatigued/ sleepy during daytime? Has anyone observed you stop No 03/06/25 12:51 breathing during sleep? STOP Results Negative 03/06/25 12:51 QUESTION #5 FULL TEXT : Do you snore loudly (louder than talking or can be heard through closed doors)? 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 Specify any problems Hx of Preganancy in last 3 N/A 03/06/25 12:51 Months Nurse Filling Out Transfusion NMARTY 03/06/25 12:51 & Questions: Date: 03/06/25 03/06/25 12:51 Time: 13:08 03/06/25 12:51 Patient unable to answer at this time (ie. confused, unrespo /Reproduction History /Reproductive History - asphalt tar and gravel roofer: /Reproductive Hx- asphalt tar and gravel roofer Hx Now No 03/06/25 19:21 Gestational Age (in weeks): EDC: Hx Hx Para Hx Section SAB No 03/06/25 19:21 Active Medications Active Medications: Current Medications Generic Name Dose Route Start Last Admin Trade Name Freq PRN Reason Stop Dose Admin Acetaminophen 650 mg 03/06/25 13:04 Acetaminophen 325 Mg Tablet PO Q4H PRN Fever, pain 1-10/10 Albuterol/Ipratropium 3 ml 03/06/25 13:04 Ipratropium/Albuterol Sulfate 3 Ml Ampul.Neb INHALATION Q6H PRN dyspnea/wheezing Escitalopram Oxalate 10 mg 03/07/25 10:00 03/07/25 08:11 Escitalopram Oxalate 10 Mg Tablet PO 10 mg DAILY AUGUSTIN Administration Sodium Chloride 250 mls @ 15 mls/hr 03/06/25 13:12 IV .[id number] PRN Saline Flush Sodium Chloride 250 mls @ 15 mls/hr 03/06/25 13:12 IV .[id number] PRN Additional IVPB Infusion Pantoprazole Sodium 40 mg/ 100 mls @ 330 mls/hr 03/06/25 22:00 03/07/25 10:25 Sodium Chloride IV Infused Q12 AUGUSTIN Infusion Lactated Ringer's 1,000 mls @ 15 mls/hr 03/07/25 14:30 03/07/25 14:32 IV 15 mls/hr .Q48H AUGUSTIN Administration Midodrine 10 mg 03/06/25 13:04 03/07/25 11:41 Midodrine Hcl 5 Mg Tablet PO 10 mg TIDCM AUGUSTIN Administration Morphine Sulfate 2 - 4 mg 03/06/25 13:43 Morphine 2 Mg/Ml Syringe IV Q3H PRN PRN Pain Score 6-10 Morphine Sulfate 2 - 4 mg 03/06/25 13:51 Morphine 4 Mg/Ml Syringe IV Q3H PRN PRN Pain Score 6-10 Nitroglycerin 0.4 mg 03/06/25 13:43 Nitroglycerin (Inpatient Use) 0.4 Mg Tab.Subl SL Q5M PRN CARDIAC/CHEST PAIN Ondansetron HCl 4 mg 03/06/25 13:43 03/06/25 23:13 Ondansetron 4 Mg/2 Ml Vial IV 4 mg Q8H PRN PRN Administration NAUSEA/VOMITING Pravastatin Sodium 40 mg 03/06/25 22:00 03/06/25 21:05 Pravastatin 40 Mg Tablet PO 40 mg QHS AUGUSTIN Administration Sodium Chloride 10 - 40 ml 03/06/25 13:12 03/07/25 10:05 0.9% Saline Lock 10 Ml Syringe IV 10 ml UD PRN Administration SALINE FLUSH Tamsulosin HCl 0.8 mg 03/06/25 17:30 03/06/25 17:47 Tamsulosin Hcl 0.4 Mg Capsule PO Not Given 1730 [facility] PFSH Medical History Syncope Abnormal pleural fluid Kidney stones Former smoker On home oxygen therapy Anxiety and depression Chronic hypoxic respiratory failure COPD (chronic obstructive pulmonary disease) Former tobacco use Pneumothorax on right Pleural effusion on right Elevated blood pressure reading in office without diagnosis of hypertension (~2014) GERD (gastroesophageal reflux disease) Essential (primary) hypertension Hyperlipidemia Abdominal aortic aneurysm (AAA) Home Medications ?Medication ?Instructions ?Recorded ?Last Taken ?Type pravastatin 40 mg tablet 40 mg PO QHS high cholesterol 01/16/18 02/22/25 History aspirin 81 mg tablet,delayed 81 mg PO DAILY heart health 08/17/18 02/22/25 History release (Adult Low Dose Aspirin) escitalopram oxalate 10 mg tablet 10 mg PO DAILY depression 02/23/25 02/22/25 History food supplemt, lactose-reduced 120 ml PO 4X/DAY supplement #0 mL 02/27/25 Unknown Rx 0.08 gram-1.5 kcal/mL oral liquid (Ensure Plus High Protein) midodrine 5 mg tablet 10 mg (2 x 5 mg) PO TIDCM blood 02/27/25 Unknown Rx pressure #0 tabs acetaminophen 325 mg tablet 650 mg PO Q4H PRN Fever, pain 03/06/25 Unknown History 1-07/21 albuterol sulfate 2.5 mg/3 mL 2.5 mg inhalation Q2H PRN Dyspnea, 03/06/25 Unknown History (0.083 %) solution for nebulization wheezing ipratropium 0.5 mg-albuterol 3 mg 3 ml inhalation Q6H PRN 03/06/25 Unknown History (2.5 mg base)/3 mL nebulization dyspnea/wheezing soln tamsulosin 0.4 mg capsule 0.8 mg PO 1730 prostate 05/26/25 Unknown History Allergy/AdvReac Type Severity Reaction Status Date / Time No Known Allergies Allergy Verified 03/06/25 09:08 Family History Father Heart disease Hypertension Myocardial infarction TAA Sister Hypertension Mother Hypertension Surgical History S/P AAA repair History of placement of chest tube History of ear surgery History of inguinal hernia repair Social History household members: none Smoking Status: Former smoker how long ago did patient quit smoking: Quit 08/26/2011. alcohol intake: never substance use type: does not use Review of Systems (Anesthesia) ROS Narrative System reviewed and no additional complaints, except as documented.
--- NOTE | 2025-03-07 14:51 | PCM.PN.BLA ---
Progress Note The patient is for upper endoscopy today. He had a bowel prep through his NG tube last night. Physical Exam Const alert, oriented x3 and no apparent distress Constitutional Narrative: frail General Appearance: cooperative HEENT normocephalic, head/scalp atraumatic and hearing grossly normal bilaterally Eyes PERRL, EOMs intact bilaterally and conjunctivae normal Neck no lymphadenopathy and supple Resp normal respiratory effort, no retractions, no use of accessory muscles and clear to auscultation bilaterally Cardio regular rate, regular rhythm, S1 normal heart sound, S2 normal heart sound and no murmurs GI normal to inspection, nondistended, normoactive bowel sounds, soft to palpation, non-tender and non-distended Extremity normal to inspection, full ROM and no clubbing, cyanosis or edema Neuro oriented x3, CN's II-XII intact bilaterally, moves all extremities and no focal motor deficits Sensorium / Orientation: awake and alert Motor Exam: strength 5/5 throughout Psych thought process normal, cooperative and affect normal Appearance: appropriate Assessment & Plan Assessment/Plan (1) GI bleed: PLAN: Plan 74-year-old gentleman with distended abdomen and imaging evidence of severe constipation with ileus and possible gastroparesis without gastric outlet obstruction seen in the setting of possible GI bleed. Midodrine, can be associated with an ileus. Specifically, some case reports suggest that midodrine could have an inhibitory effect on intestinal motility, possibly leading to severe ileus. -Recommend to keep NG tube to low intermittent suction -The patient would likely need to have upper endoscopy tomorrow to evaluate cause of upper GI bleed -Protonix 40 mg IV twice daily -Stop midodrine -Workup for adrenal insufficiency in the setting of hypotension as he may need a mineralocorticoid or glucocorticoid for his hypotension Patient will undergo EGD today to evaluate his upper GI tract for GI bleed. He was explained alternatives, risk and benefits include not withstanding bleeding, infection, subs, perforation, need for emergent urgent . He will have an ASA of 3. Visit Charges Inpatient E&M: 54707 Subs Hosp L3
--- NOTE | 2025-03-07 15:47 | OP.EGD_ITS ---
Patient Name: Dc Beth Procedure Date: 03/07/2025 2:50 PM Date of : 1950 Age: 74 Procedure: Upper GI endoscopy Indications: Epigastric abdominal pain, Indigestion, Hematemesis Providers: Nabor Mcduffie DO Medicines: Monitored Anesthesia Care Patient Profile: This is a 74 year old male. Refer to note in patient chart for documentation of history and physical. Patient has symptoms of acute epigastric abdominal pain, acute nausea and acute vomiting. Complications: No immediate complications. Procedure: Pre-Anesthesia Assessment: - Prior to the procedure, a History and Physical was performed, and patient medications and allergies were reviewed. The patient is competent. The risks and benefits of the procedure and the sedation options and risks were discussed with the patient. All questions were answered and informed consent was obtained. Patient identification and proposed procedure were verified by the physician in the pre-procedure area. Mental Status Examination: alert and oriented. Airway Examination: normal oropharyngeal airway and neck mobility. Respiratory Examination: clear to auscultation. CV Examination: normal. ASA Grade Assessment: II - A patient with mild systemic disease. After reviewing the risks and benefits, the patient was deemed in satisfactory condition to undergo the procedure. The anesthesia plan was to use monitored anesthesia care (MAC). Immediately prior to administration of medications, the patient was re-assessed for adequacy to receive sedatives. The heart rate, respiratory rate, oxygen saturations, blood pressure, adequacy of pulmonary ventilation, and response to care were monitored throughout the procedure. The physical status of the patient was re-assessed after the procedure. After obtaining informed consent, the endoscope was passed under direct vision. Throughout the procedure, the patient's blood pressure, pulse, and oxygen saturations were monitored continuously. The gastroscope was introduced through the mouth, and advanced to the fourth part of the duodenum. Small bowel enteroscopy was deemed necessary. Scope In: 3:24:40 PM Scope Out: 3:37:05 PM Total Procedure Duration Time 0 hours 12 minutes 25 seconds Findings: A 20 mm bleeding [place] tear with stigmata of recent bleeding was found. Coagulation for hemostasis using argon plasma at 0.3 liters/minute and 20 hensley was successful. Estimated blood loss was minimal. A few localized 5 mm erosions with no stigmata of recent bleeding were found in the gastric body. No gross lesions were noted in the entire examined duodenum. Impression: - [place] tear. Treated with argon plasma coagulation (APC). - Erosive gastropathy with no stigmata of recent bleeding. - No gross lesions in the entire examined duodenum. - No specimens collected. Recommendation: - Discharge patient to home. - Resume previous diet. - Continue present medications. - Clear liquid diet today. - Continue present medications. Procedure Code(s): --- Professional --- 80053, Small intestinal endoscopy, enteroscopy beyond second portion of duodenum, not including ileum; with control of bleeding (eg, injection, bipolar cautery, unipolar cautery, laser, heater probe, stapler, plasma food sales clerk) CPT copyright 2021 [employer]. All rights reserved. The codes documented in this report are preliminary and upon astronomy department chair review may be revised to meet current compliance requirements. Nabor Mcduffie DO 03/07/2025 3:47:08 PM This report has been signed electronically. Number of Addenda: 0 Note Initiated On: 03/07/2025 2:50 PM
--- NOTE | 2025-03-07 15:47 | OP.CCLET_ITS ---
03/07/2025 Brent Martinez Re : Upper GI endoscopy procedure for Dc Beth Sophia Martinez This procedure was performed on Friday, March 07, 2025. My impressions and recommendations are as follows: Impressions : - [place] tear. Treated with argon plasma coagulation (APC). - Erosive gastropathy with no stigmata of recent bleeding. - No gross lesions in the entire examined duodenum. - No specimens collected. Recommendations : - Discharge patient to home. - Resume previous diet. - Continue present medications. - Clear liquid diet today. - Continue present medications. My findings are described in the full procedure note, which is enclosed. If I can be of further assistance, please feel free to contact me at . Sincerely, Nabor Mcduffie, 03/07/2025 3:47:08 PM This report has been signed electronically.
--- NOTE | 2025-03-07 16:22 | PCM.POST.ANE ---
Anesthesia: Postop Eval I Current Vital Signs Temperature: 98.1 F Pulse Rate: 92 Blood Pressure: 94/65 Respiratory Rate: 16 Pulse Ox: 97 Assessment Airway patent: Yes Spontaneous unlabored respirations: Yes nausea: No Vomiting: No Anesthesia Complication: No Fluid Hydration Crystalloid volume administer (ml): 200 Total IV fluid infused: 200 Progress Note Anesthesia document: Postop Eval 1 completed: Yes
[2025-03-07] MEDS: Metoprolol Tartrate 25 MG Tablet 12.5 MG PO (19:47)
--- NOTE | 2025-03-07 20:27 | POSTOPAN2_ITS ---
Anesthesia Postop Eval I Sum Postop Eval Completion status Anesthesia document: Postop Eval 1 completed: Yes Anesthesia Postop Eval I Summary Anesthesia Postop Eval I Summary: Anesthesia Postop Eval I: Assessment Summary Airway patent Yes 03/07/25 16:22 ADMISSIONS MANAGER RN.TNES Spontaneous unlabored Yes 03/07/25 16:22 ADMISSIONS MANAGER RN.TNES respirations Mental status nausea No 03/07/25 16:22 ADMISSIONS MANAGER RN.TNES Vomiting No 03/07/25 16:22 ADMISSIONS MANAGER RN.TNES Anesthesia Postop Eval I: Fluid Summary Crystalloid volume administer 200 03/07/25 16:22 ADMISSIONS MANAGER RN.TNES (ml) Colloids volume administered ( ml) Blood Product volume administered (ml) Total IV fluid infused 200 03/07/25 16:22 ADMISSIONS MANAGER RN.TNES Anesthesia Postop Eval I: Summary Notes Anesthesia Complication No 03/07/25 16:22 ADMISSIONS MANAGER RN.TNES Anesthesia Complication Comment: Post-operative progress note Anesthesia: Postop Eval II Evaluation Mental status: Awake and Calm Pain Level: 0 nausea: No Vomiting: No Complications Anesthesia Complication: No
--- NOTE | 2025-03-07 20:27 | PCM.POSTANE2 ---
Anesthesia Postop Eval I Sum Postop Eval Completion status Anesthesia document: Postop Eval 1 completed: Yes Anesthesia Postop Eval I Summary Anesthesia Postop Eval I Summary: Anesthesia Postop Eval I: Assessment Summary Airway patent Yes 03/07/25 16:22 TECHNOLOGY SALES SPECIALIST.TNES Spontaneous unlabored Yes 03/07/25 16:22 TECHNOLOGY SALES SPECIALIST.TNES respirations Mental status nausea No 03/07/25 16:22 TECHNOLOGY SALES SPECIALIST.TNES Vomiting No 03/07/25 16:22 TECHNOLOGY SALES SPECIALIST.TNES Anesthesia Postop Eval I: Fluid Summary Crystalloid volume administer 200 03/07/25 16:22 TECHNOLOGY SALES SPECIALIST.TNES (ml) Colloids volume administered ( ml) Blood Product volume administered (ml) Total IV fluid infused 200 03/07/25 16:22 TECHNOLOGY SALES SPECIALIST.TNES Anesthesia Postop Eval I: Summary Notes Anesthesia Complication No 03/07/25 16:22 TECHNOLOGY SALES SPECIALIST.TNES Anesthesia Complication Comment: Post-operative progress note Anesthesia: Postop Eval II Evaluation Mental status: Awake and Calm Pain Level: 0 nausea: No Vomiting: No Complications Anesthesia Complication: No
[2025-03-07 21:01] LABS: D-Dimer Quantitative (DVT/PE) 4.09 FEU/ug/m (0.27-0.49)
--- NOTE | 2025-03-07 21:08 | CT_ITS ---
PROCEDURE: CTA CHEST W/WO CONTRAST 03/07/2025 REASON FOR EXAM: PE R/O TECHNIQUE: CTA axial imaging of the chest with intravenous contrast. Multiplanar and multisequence images were obtained. 3D post processing was performed PATIENT PREPARATION: Per protocol CONTRAST: Isovue 370 VOLUME: 103 mL Not Provided Gauge IV One or more dose reduction techniques were used (e.g., Automated exposure control, adjustment of the mA and/or kV according to patient size, use of iterative reconstruction technique). RADIATION DOSE SUMMARY: CTDlvol: 16 mGy DLP: 191 mGycm . COMPARISON: Chest radiograph obtained earlier today. FINDINGS: Hardware: Left-sided cardiac pacemaker. Lymph nodes: No lymphadenopathy. Heart: Heart size is normal. No pericardial effusion. RV/LV Diameter Ratio: Thoracic Aorta: No thoracic aortic aneurysm or dissection. Atherosclerotic calcification of the thoracic aorta. Pulmonary Vessels: No large central pulmonary emboli are identified. Contrast timing is suboptimal for evaluation of more distal branches. Most Proximal Level of Embolus (if embolus present): Lungs and Airways: Layering debris within the trachea. Emphysematous changes of the lungs with right lower lobe consolidation with air bronchograms, concerning for infection. 7 mm right middle lobe pulmonary nodule, best appreciated on series 2, image number 157. Pleura: No pneumothorax. Large bilateral pleural effusion with compressive atelectasis, as well as right pleural thickening. Mediastinum: Circumferential wall thickening of the esophagus with layering fluid up to the proximal 1/3.. Upper Abdomen: Aneurysmal dilatation of the infrarenal abdominal aorta measuring 4.2 x 3.8 cm in size. Bones: Degenerative changes of the thoracic spine. CT/CTA Chest W/WO Contrast IMPRESSION: No evidence of pulmonary embolism Right lower lobe consolidation with air bronchograms, concerning for infection. Aspiration pneumonia can not be excluded given layering debris within the trachea and layering fluid within the esophagus. Large bilateral pleural effusions with compressive atelectasis. Circumferential wall thickening of the esophagus, concerning for esophagitis. Infrarenal abdominal aortic aneurysm measuring 4.2 x 3.8 cm. 7 mm right middle lobe pulmonary nodule. Follow-up is recommended. Reading [facility]
[2025-03-07] MEDS: Pravastatin 40 MG Tablet PO (23:11)
[2025-03-08] VITALS (9 sets, daily range): BP systolic 124–136; BP diastolic 54–73; PULSE 79–154; RESP 16; TEMP 36.6–37.2; O2SAT 94–96
--- NOTE | 2025-03-08 00:49 | PCM.PN.BLA ---
Progress Note Had a thoracentesis today with an exudative effusion D-dimer had been obtained by the day team which was elevated so CTA of the chest was done which was negative for PE.
[2025-03-08 06:42] LABS: Absolute Lymphocyte Count 0.49 X10^3/uL (0.83-4.51); Absolute Neutrophil Count 5.9 X10^3/uL (2.0-7.7); Basophil# 0.01 X10^3/uL; Basophil% 0.1 % (0-1); Eosinophil# 0.03 X10^3/uL; Eosinophils% 0.4 % (0-5); Hematocrit 27.7 % (40-54); Hemoglobin 8.5 g/dL (13.0-16.5); Lymphocyte # 0.49 X10^3/ul (0.83-4.51); Lymphocyte % 7.2 % (19-41); Mean Corp Hgb Conc 30.7 g/dL (32-36); Mean Corpuscular Hgb 26.5 pg (27.0-32.0); Mean Corpuscular Volume 86.3 fL (80-94); Mean Platelet Vol. 9.7 fl (6.2-12.0); Monocyte# 0.38 X10^3/uL; Monocyte% 5.6 % (0-10); NRBC Flagged by Analyzer 0 % (0-5); Neutrophil # 5.85 X10^3/uL (2.7-7.7); Neutrophil % 86.1 % (47-70); POSITIVE DIFFERENTIAL YES; Platelet Count 461 K/mm3 (150-450); RBC Distribution Width CV 17.8 % (11.6-14.6); RBC Distribution Width SD 56.2 fl (35.1-43.9); Red Blood Count 3.21 M/mm3 (4.6-6.2); White Blood Count 6.8 K/mm3 (4.4-11.0)
[2025-03-08 07:08] LABS: Anion Gap 15 (5-15); BUN 15 mg/dL (4-19); BUN/Creat Ratio 22.3 RATIO (10-20); Calcium,Total 9.1 mg/dL (7.6-11.0); Carbon Dioxide 28.3 mmol/L (21.0-32.0); Chloride 96 mmol/L (98-108); Creatinine, Serum 0.66 mg/dL (0.70-1.20); EST Glomerular Filtration Rate 97 (>60); Estimated Creatinine Clearance 62.11 ml/min (50-250); Glucose 57 mg/dL (70-99); Potassium 3.5 mmol/L (3.3-5.1); Sodium Level 139 mmol/L (133-145)
[2025-03-08] MEDS: Piperacil/Tazobactam 3.375 GM in 0.9% Normal Saline (50mL MB+) 50 ML IV ×3 (08:37→21:43)
[2025-03-08] MEDS: Midodrine HCl 5 MG Tablet 10 MG PO ×3 (08:38→17:29)
[2025-03-08] MEDS: Escitalopram Oxalate 10 MG Tablet PO (08:51)
[2025-03-08] MEDS: Morphine 2 MG/ML Syringe IV (10:40)
--- NOTE | 2025-03-08 11:05 | CASEMGMT ---
Social Work SW collaborated with TCU SW on pt care while in the TCU. SW received phone call from pt dgt Charla. Charla expressing concerns with multiple reports from different physicians and asking clarifying questions. SW offered support to dgt and explained that hospitalist is overseeing pt care at this time and SW would request hospitalist call dgt to answer questions. SW spoke with dgt regarding discharge plan. Pt told RNCM yesterday that he plans to return home at discharge. Pt dgt states that pt currently requires 24 hour care which family is unable to provide and family would like pt to go back to TCU for continued rehab at time of discharge. Pt has not had therapy yet during the hospital stay. SW will follow up with pt after seen by therapy to discuss discharge plan. LUISANA Solomon
--- NOTE | 2025-03-08 12:12 | EX.PCM.CONCC ---
Assessment & Plan Assessment/Plan (1) Abnormal pleural fluid: PLAN: Plan RECOMMENDATIONS: 1. Await finalized pleural fluid analysis, including cytology. 2. Obtain outside medical records from the patient's content analyst at [facility] and cardiothoracic surgery, along with oncology ([facility]) 3. Await left-sided pleural fluid cytology results. 4. Continue empiric antibiotics to address right lower lobe pneumonia. IMPRESSIONS: 1. Pleural effusion In April 2024, the patient was noted to have a right sided exudative pleural effusion with atypical mesothelial proliferation. Although the patient has apparently been evaluated by an outside content analyst, cardiothoracic surgery and oncology, I do not have any of the outside hospital medical records to confirm what workup or recommendations have been made regarding the aforementioned finding. He does appear to have bilateral pleural effusions on his most recent CTA chest with evidence of a right lower lobe consolidation with air bronchograms. The left-sided pleural effusion appears transudative in nature. I would recommend obtaining the patient's outside hospital medical records regarding the workup and management of the previously noted effusion in 2023. No additional intervention or workup is required at this time regarding the patient's left-sided effusion, while awaiting cytology results. I agree with continuing antibiotics to address his right lower lobe pneumonia. Continue to wean supplemental oxygen to maintain saturations at or above 90%. Per traditional Light's criteria, if at least one of the following three is fulfilled, the fluid would be considered an exudate: 1. Pleural fluid protein/serum protein ratio greater than 0.5 2. Pleural fluid LDH/serum LDH ratio greater than 0.6 3. Pleural fluid LDH greater than two thirds the upper limits of the laboratories normal serum LDH Based upon my review of the patient's pleural fluid analysis, along with serum LDH and total protein levels, the pleural fluid would be considered transudative in nature. This note was generated with [employer] software. It may contain incorrect words, spelling, and punctuation that were not noted in checking the note before signing. HPI Consult Data Date of Consult: 03/08/25 HPI Narrative Reason for Consultation: Pleural effusions HPI Narrative: The patient is a 74-year-old male, with a history as outlined below, who presented from the transitional care unit with coffee-ground emesis. The patient had been admitted to the hospital for syncope and failure to thrive and appears to have been placed on midodrine for orthostatic hypotension. He was discharged to the transitional care unit on February 27. In April 2024, the patient was admitted to the hospital with cough and shortness of breath. He underwent a thoracentesis for a right-sided pleural effusion, which ultimately resulted in a pneumothorax requiring chest tube placement. Pleural fluid was exudative in nature with cytology demonstrating atypical mesothelioma proliferation. Following his discharge from the hospital, the patient reported that he followed up with Dr. Ajay Malagon of pulmonary medicine through [facility]. The patient was also evaluated by Dr. Ya of cardiothoracic surgery as well. However, the patient is not able to tell me what was discussed by those specialist and what their recommendations entailed. He also reported that he was evaluated by an oncologist through [facility] and was apparently told that he did not have cancer. On presentation to the emergency department, the patient was documented to be afebrile hemodynamically stable. Laboratory evaluation revealed a normal white blood cell count. Hemoglobin was stable at 9.4 g/dL. Chemistry profile was unremarkable. CT abdomen/pelvis demonstrated a small right and moderate left-sided pleural effusion with right lower lobe consolidation and asymmetric thickening of the pleura. An ultrasound-guided thoracentesis was ultimately completed on March 07, during which time, 390 mL of fluid was aspirated from the left hemithorax. A CTA chest was also obtained which confirmed the presence of a right lower lobe consolidation with air bronchograms with associated pleural effusion and contralateral pleural effusion as well. [facility] Medical History Syncope Abnormal pleural fluid Kidney stones Former smoker On home oxygen therapy Anxiety and depression Chronic hypoxic respiratory failure COPD (chronic obstructive pulmonary disease) Former tobacco use Pneumothorax on right Pleural effusion on right Elevated blood pressure reading in office without diagnosis of hypertension (~2014) GERD (gastroesophageal reflux disease) Essential (primary) hypertension Hyperlipidemia Abdominal aortic aneurysm (AAA) Home Medications ?Medication ?Instructions ?Recorded ?Last Taken ?Type pravastatin 40 mg tablet 40 mg PO QHS high cholesterol 01/16/18 02/22/25 History aspirin 81 mg tablet,delayed 81 mg PO DAILY heart health 08/17/18 02/22/25 History release (Adult Low Dose Aspirin) escitalopram oxalate 10 mg tablet 10 mg PO DAILY depression 02/23/25 02/22/25 History food supplemt, lactose-reduced 120 ml PO 4X/DAY supplement #0 mL 02/27/25 Unknown Rx 0.08 gram-1.5 kcal/mL oral liquid (Ensure Plus High Protein) midodrine 5 mg tablet 10 mg (2 x 5 mg) PO TIDCM blood 02/27/25 Unknown Rx pressure #0 tabs acetaminophen 325 mg tablet 650 mg PO Q4H PRN Fever, pain 03/06/25 Unknown History -07/21 albuterol sulfate 2.5 mg/3 mL 2.5 mg inhalation Q2H PRN Dyspnea, 03/06/25 Unknown History (0.083 %) solution for nebulization wheezing ipratropium 0.5 mg-albuterol 3 mg 3 ml inhalation Q6H PRN 03/06/25 Unknown History (2.5 mg base)/3 mL nebulization dyspnea/wheezing soln tamsulosin 0.4 mg capsule 0.8 mg PO 1730 prostate 03/06/25 Unknown History Allergy/AdvReac Type Severity Reaction Status Date / Time No Known Allergies Allergy Verified 03/06/25 09:08 Family History Father Heart disease Hypertension Myocardial infarction TAA Sister Hypertension Mother Hypertension Surgical History S/P AAA repair History of placement of chest tube History of ear surgery History of inguinal hernia repair Social History household members: none Smoking Status: Former smoker how long ago did patient quit smoking: Quit 08/26/2011. alcohol intake: never substance use type: does not use ROS ROS Narrative 10 systems were reviewed with pertinent positives as noted in the HPI above. Physical Exam Const alert and no apparent distress General Appearance: cooperative HEENT normocephalic, head/scalp atraumatic and moist oral mucous membranes Eyes PERRL, EOMs intact bilaterally and conjunctivae normal Neck supple General: trachea midline Chest inspection of chest normal Resp normal respiratory effort Auscultation: diminished lung sounds Cardio regular rate and regular rhythm GI normal to inspection, nondistended, normoactive bowel sounds Extremity no clubbing, cyanosis or edema Skin no rashes or lesions noted Neuro CN's II-XII intact bilaterally, moves all extremities and no focal motor deficits Psych cooperative and affect normal Medical Records Data Medical Nutrition Assessment Dietitian: Malnutrition Criteria Met Start: 03/07/25 15:56 Freq: Status: Active Protocol: Document 03/07/25 15:56 RMA (Rec: 03/07/25 15:57 RMA [id number]) Nutrition Malnutrition Evidence of Yes Malnutrition Exists Malnutrition (severe Acute Illness/Injury ): Evidenced By Suboptimal Energy Intake (Severe),Weight Loss (Severe), Physical Changes (Moderate) Intake Problem Inadequate Oral Intake Etiology related to altered GI function/ileus Signs/Symptoms as evidenced by NPO Status Active Problem Clinical Problem Acute Disease or Injury Related Malnutrition Etiology severe protein-calorie malnutrition in the context of acute illness related to altered GI function and inability to take adequate energy/pro Signs/Symptoms as evidenced by current NPO, BMI 17.2, unintentional weight loss ~18% body weight x 9-10 months (less than 1 year time frame), muscle wasting/fat depletion noted in clavicle area, PO meeting less than 75% estimated nutrition needs x 6 months Status Active Problem Recommendation Dietitian Recommend advance diet as tolerated to Transitional Recommendations/ with goal of liberalized regular diet. Changes Will offer ONS as diet able to advance from NPO. Consider nutrition support if PO remains poor and weight continues to decline. Lab / Micro Data 03/08/25 05:11 03/08/25 05:11 Labs: Laboratory Results - last 24 hr 03/07/25 09:24: Fluid Glucose 69, Fluid Total Protein 1.8, Fluid LDH 83 03/07/25 20:10: D-Dimer Quant (PE/DVT) 4.09 H* 03/08/25 05:11: WBC 6.8, RBC 3.21 L, Hgb 8.5 L, Hct 27.7 L, MCV 86.3, MCH 26.5 L, MCHC 30.7 L, RDW Std Deviation 56.2 H, RDW Coeff of Wilbert 17.8 H, Plt Count 461 H, MPV 9.7, Immature Gran % (Auto) 0.600, Neut % (Auto) 86.1 H, Lymph % (Auto) 7.2 L, Wilcox % (Auto) 5.6, Eos % (Auto) 0.4, Baso % (Auto) 0.1, Absolute Neuts (auto) 5.9, Absolute Lymphs (auto) 0.49 L, Nucleated RBC % 0, Sodium 139, Potassium 3.5, Chloride 96 L, Carbon Dioxide 28.3, Anion Gap 15, BUN 15, Creatinine 0.66 L, Estim Creat Clear Calc 62.11, Est GFR (MDRD) Non-Af 97, BUN/Creatinine Ratio 22.3 H, Glucose 57 L, Calcium 9.1 Imaging Radiology Impression Chest X-Ray 03/07/25 09:00 IMPRESSION: No evidence of pneumothorax following the left thoracentesis. Reading Location: [facility] Echocardiogram 03/07/25 09:07 Interpretation Summary The estimated ejection fraction is 55-60 %. No significant valvular abnormality No significant change from previous echo Ordering Physician: Katlin Sullivan Performed By: Maria Luisa Chavez RDCS Chest CTA 03/07/25 21:08 IMPRESSION: No evidence of pulmonary embolism Right lower lobe consolidation with air bronchograms, concerning for infection. Aspiration pneumonia can not be excluded given layering debris within the trachea and layering fluid within the esophagus. Large bilateral pleural effusions with compressive atelectasis. Circumferential wall thickening of the esophagus, concerning for esophagitis. Infrarenal abdominal aortic aneurysm measuring 4.2 x 3.8 cm. 7 mm right middle lobe pulmonary nodule. Follow-up is recommended. Reading Location: [facility] Charges/Coding Visit Charges Inpatient E&M: 64001 Init Hosp L3
[2025-03-08] MEDS: Pantoprazole Sodium 40 MG in 0.9% Normal Saline (100mL MB+) 100 ML 330 MG IV ×2 (12:49→21:06)
--- NOTE | 2025-03-08 15:10 | CASEMGMT ---
Social Work SW met with pt to discuss discharge plan. Pt is non committal at this time. SW spoke with pt regarding returning to TCU for continued rehab and discussed concerns with returning home alone at this time. Pt stating he wants time to think about options. SW spoke with pt dgt Charla regarding discharge plans, and pt's family feel pt needs to return to TCU at time of discharge. SW will continue to follow for dc planning. LUISANA Solomon
--- NOTE | 2025-03-08 16:08 | PN_ITS ---
Subjective Subjective Patient seen and examined. He was lying comfortably in bed and had no active complaints. He denied any coughing or chest pain, palpitations, dizziness, nausea or vomiting. His D-dimer was elevated yesterday so CTA of the chest was done which was negative for PE but did show right lower lobe consolidation with air bronchograms concerning for infection and layering debris within the trachea and layering fluid within the esophagus as well as large bilateral pleural effusions with compressive atelectasis and circumferential wall thickening of the esophagus concerning for esophagitis. Patient started on IV antibiotics today and pulmonology consulted. Objective Data Objective Data Vital Signs: Vital Signs Temp Pulse Resp BP Pulse Ox O2 Del Method O2 Flow Rate 98.6 F 85 16 124/55 H 96 Nasal Cannula 2 03/08/25 15:02 03/08/25 15:02 03/08/25 15:02 03/08/25 15:02 03/08/25 15:02 03/08/25 15:02 03/08/25 15:02 Oxygen Flow Rate (L/min) 2 Oxygen Delivery Method Nasal Cannula Weight: 123 lb 3.814 oz Body Mass Index (BMI) 17.2 Intake & Output: Intake and Output for Last 24 Hours 03/06/25 03/07/25 03/08/25 23:59 23:59 23:59 Intake Total 2240 / 2240 2474.75 / 2474.75 200 / 200 Output Total 1100 / 1100 3040 / 3040 725 / 725 Balance 1140 / 1140 -565.25 / -565.25 -525 / -525 Medical Nutrition Assessment Dietitian: Malnutrition Criteria Met Start: 03/07/25 15:56 Freq: Status: Active Protocol: Document 03/07/25 15:56 RMA (Rec: 03/07/25 15:57 RMA [id number]) Nutrition Malnutrition Evidence of Yes Malnutrition Exists Malnutrition (severe Acute Illness/Injury ): Evidenced By Suboptimal Energy Intake (Severe),Weight Loss (Severe), Physical Changes (Moderate) Intake Problem Inadequate Oral Intake Etiology related to altered GI function/ileus Signs/Symptoms as evidenced by NPO Status Active Problem Clinical Problem Acute Disease or Injury Related Malnutrition Etiology severe protein-calorie malnutrition in the context of acute illness related to altered GI function and inability to take adequate energy/pro Signs/Symptoms as evidenced by current NPO, BMI 17.2, unintentional weight loss ~18% body weight x 9-10 months (less than 1 year time frame), muscle wasting/fat depletion noted in clavicle area, PO meeting less than 75% estimated nutrition needs x 6 months Status Active Problem Recommendation Dietitian Recommend advance diet as tolerated to Transitional Recommendations/ with goal of liberalized regular diet. Changes Will offer ONS as diet able to advance from NPO. Consider nutrition support if PO remains poor and weight continues to decline. Lab / Micro Data 03/08/25 05:11 03/08/25 05:11 Labs: Laboratory Results - last 24 hr 03/07/25 20:10: D-Dimer Quant (PE/DVT) 4.09 H* 03/08/25 05:11: WBC 6.8, RBC 3.21 L, Hgb 8.5 L, Hct 27.7 L, MCV 86.3, MCH 26.5 L , MCHC 30.7 L, RDW Std Deviation 56.2 H, RDW Coeff of Wilbert 17.8 H, Plt Count 461 H, MPV 9.7, Immature Gran % (Auto) 0.600, Neut % (Auto) 86.1 H, Lymph % (Auto) 7.2 L, [place] % (Auto) 5.6, Eos % (Auto) 0.4, Baso % (Auto) 0.1, Absolute Neuts (auto) 5.9, Absolute Lymphs (auto) 0.49 L, Nucleated RBC % 0, Sodium 139, Potassium 3.5, Chloride 96 L, Carbon Dioxide 28.3, Anion Gap 15, BUN 15, C reatinine 0.66 L, Estim Creat Clear Calc 62.11, Est GFR (MDRD) Non-Af 97, B UN/Creatinine Ratio 22.3 H, Glucose 57 L, Calcium 9.1 Micro: Microbiology 03/06/25 09:24 Stool Stool Occult Blood (DESHAUN) - Final Occult Blood Positive Radiography Diagnostic Testing: Radiology Impression Chest X-Ray 03/07/25 09:00 IMPRESSION: No evidence of pneumothorax following the left thoracentesis. Reading Location: [facility] Echocardiogram 03/07/25 09:07 Interpretation Summary The estimated ejection fraction is 55-60 %. No significant valvular abnormality No significant change from previous echo Ordering Physician: Katlin Sullivan Performed By: Maria Luisa Chavez RDCS Chest CTA 03/07/25 21:08 IMPRESSION: No evidence of pulmonary embolism Right lower lobe consolidation with air bronchograms, concerning for infection. Aspiration pneumonia can not be excluded given layering debris within the trachea and layering fluid within the esophagus. Large bilateral pleural effusions with compressive atelectasis. Circumferential wall thickening of the esophagus, concerning for esophagitis. Infrarenal abdominal aortic aneurysm measuring 4.2 x 3.8 cm. 7 mm right middle lobe pulmonary nodule. Follow-up is recommended. Reading [facility] Physical Exam Const alert, oriented x3 and no apparent distress Constitutional Narrative: frail General Appearance: cooperative HEENT normocephalic, head/scalp atraumatic and hearing grossly normal bilaterally Eyes PERRL, EOMs intact bilaterally and conjunctivae normal Neck no lymphadenopathy and supple Lymph Lymphatic: no lymphadenopathy noted Resp Resp Narrative: mildly diminished breath sounds bibasally, no wheezes or crackles. On 2L of oxygen by nasal canula. Cardio regular rate, regular rhythm, S1 normal heart sound, S2 normal heart sound and no murmurs GI normal to inspection, nondistended, normoactive bowel sounds, soft to palpation, non-tender and non-distended Extremity normal to inspection, full ROM and no clubbing, cyanosis or edema General Extremity: no tenderness to palpation of joints or extremities Skin General Skin Exam: no breakdown Neuro oriented x3, moves all extremities and no focal motor deficits Sensorium / Orientation: awake and alert Motor Exam: general weakness Psych thought process normal, cooperative and affect normal Appearance: appropriate Assessment & Plan Assessment/Plan (1) GI bleed: PLAN: Plan #Intestinal ileus in the setting of possible GI bleed * Is not on any blood thinners. Had CT abdomen which showed severe fecal impaction without evidence of diffuse distention with borderline dilatation of small bowel loops likely secondary to stool burden as well as progression of right lower lobe consolidation and increased size of the small right and moderate left pleural effusions with pleural nodularity * had EGD which showed Leah-Birmingham tear which was treated with argon plasma coagulation and erosive gastritis but 3 with no stigmata of recent bleeding and no gross lesions in the entire examined duodenum. * IV pantoprazole 40 mg twice daily. stool for occult blood was positive. * continue gentle hydration with IVF * #Bilateral pleural effusions with right lower lobe consolidation * Did have this during previous admission and the pleural effusion is actually worsened. * He had thoracentesis with analysis of the pleural fluid back on 04/26/2024 which showed atypical mesothelial proliferation * Patient and his daughter tell me he did follow up with oncology and pulmonology. They were told he did not have cancer. * however, patient has lost ~ 50+ pounds within a year. CXR findings as above * had left thoracentesis today with removal of 390 cc of fluid from the left pleural cavity * pulmonology consulted today * Repeat CTA of the chest done yesterday on account of elevated D-dimer showed right lower lobe consolidation with air bronchograms concerning for infection and layering debris within the trachea and layering fluid within the esophagus as well as large bilateral pleural effusions with compressive atelectasis, circumferential wall thickening of the esophagus concerning for esophagitis and 7 mm right middle lobe pulmonary nodule * Analysis of the left pleural fluid done showed that it was transudative in nature. * Started on IV Zosyn * Breathing treatments bronchodilators. Titrate oxygen to maintain saturation above 90%. * #History of orthostatic hypotension: On midodrine. Midodrine dc'd per GI. #Hyperlipidemia: On statin #BPH: On Flomax #Depression: on escitalopram DVT prophylaxis: SCDs CODE STATUS:full code Addendum I spoke to patient's daughter Karla ([id number]) at ~ 5:30pm today. SHe had questions about whether her father had cancer or otherwise. I explained that we were waiting for the cytology of the most recent thoracentesis to result to help detemine that. I updated her about patient's current management plan, and answered all her questions. I explained that patient had been started on antibiotics due to cncerns about pneumonia, likely aspiration. Once we got the cytology results then we would be better able to give a good prognosis about his ailmemt. Karla expressed understanding of the plan of care. * Charges/Coding Visit Charges Inpatient E&M: 64434 Subs Hosp L2
[2025-03-08] MEDS: Tamsulosin HCl 0.4 MG Capsule 0.8 MG PO (17:29)
--- NOTE | 2025-03-08 19:38 | PN_ITS ---
Progress Note Patient has not been eating much today. He still complains of some mild nausea. His BMI is down to 17. He is down another 2 pounds since being in the hospital. Physical Exam Const alert, oriented x3 and no apparent distress Constitutional Narrative: frail General Appearance: cooperative HEENT normocephalic, head/scalp atraumatic and hearing grossly normal bilaterally Eyes PERRL, EOMs intact bilaterally and conjunctivae normal Neck no lymphadenopathy and supple Lymph Lymphatic: no lymphadenopathy noted Cardio regular rate, regular rhythm, S1 normal heart sound, S2 normal heart sound and no murmurs GI normal to inspection, nondistended, normoactive bowel sounds, soft to palpation, non-tender and non-distended Extremity normal to inspection, full ROM and no clubbing, cyanosis or edema General Extremity: no tenderness to palpation of joints or extremities Skin General Skin Exam: no breakdown Neuro oriented x3, moves all extremities and no focal motor deficits Sensorium / Orientation: awake and alert Motor Exam: general weakness Psych thought process normal, cooperative and affect normal Appearance: appropriate Assessment & Plan Assessment/Plan (1) GI bleed: PLAN: Plan 74-year-old gentleman with distended abdomen and imaging evidence of severe constipation with ileus and possible gastroparesis without gastric outlet obstruction seen in the setting of possible GI bleed. Midodrine, can be associated with an ileus. Specifically, some case reports suggest that midodrine could have an inhibitory effect on intestinal motility, possibly leading to severe ileus. -Recommend to keep NG tube to low intermittent suction -The patient would likely need to have upper endoscopy tomorrow to evaluate cause of upper GI bleed -Protonix 40 mg IV twice daily -Stop midodrine -Workup for adrenal insufficiency in the setting of hypotension as he may need a mineralocorticoid or glucocorticoid for his hypotension Patient will undergo EGD today to evaluate his upper GI tract for GI bleed. He was explained alternatives, risk and benefits include not withstanding bleeding, infection, subs, perforation, need for emergent urgent . He will have an ASA of 3. 03/08/2025-the patient underwent an upper endoscopy yesterday. Findings: A 20 mm bleeding Leah-Birmingham tear with stigmata of recent bleeding was found. Coagulation for hemostasis using argon plasma at 0.3 liters/minute and 20 hensley was successful. Estimated blood loss was minimal. A few localized 5 mm erosions with no stigmata of recent bleeding were found in the gastric body. No gross lesions were noted in the entire examined duodenum. Impression: - Leah-Birmingham tear. Treated with argon plasma coagulation (APC). - Erosive gastropathy with no stigmata of recent bleeding. - No gross lesions in the entire examined duodenum. - No specimens collected. Recommendation: - Discharge patient to home. - Resume previous diet. - Continue present medications. - Clear liquid diet today. - Continue present medications. I do not know the etiology of his ileus. I suspect that it was from his midodrine as that is a known side effect. Low blood pressures possibly secondary to hypovolemia. His a.m. cortisol level and p.m. cortisol level were normal and not consistent with adrenal insufficiency. Hemoglobin seems to be stable. Would order gastric emptying study. Visit Charges Inpatient E&M: 61860 [facility] Hosp L3
[2025-03-08] MEDS: Pravastatin 40 MG Tablet PO (21:08)
[2025-03-09] VITALS (8 sets, daily range): BP systolic 108–121; BP diastolic 59–68; PULSE 71–93; RESP 16–18; TEMP 36.6–37.1; O2SAT 96–100
[2025-03-09] MEDS: Morphine 2 MG/ML Syringe IV ×3 (00:21→22:37)
[2025-03-09] MEDS: Piperacil/Tazobactam 3.375 GM in 0.9% Normal Saline (50mL MB+) 50 ML IV ×3 (05:15→21:40)
[2025-03-09 05:38] LABS: Absolute Lymphocyte Count 0.54 X10^3/uL (0.83-4.51); Absolute Neutrophil Count 5.1 X10^3/uL (2.0-7.7); Basophil# 0.01 X10^3/uL; Basophil% 0.2 % (0-1); Eosinophil# 0.04 X10^3/uL; Eosinophils% 0.7 % (0-5); Hematocrit 25.5 % (40-54); Hemoglobin 7.9 g/dL (13.0-16.5); Lymphocyte # 0.54 X10^3/ul (0.83-4.51); Mean Corpuscular Hgb 26.6 pg (27.0-32.0); Mean Corpuscular Volume 85.9 fL (80-94); Mean Platelet Vol. 9.6 fl (6.2-12.0); Monocyte# 0.31 X10^3/uL; Monocyte% 5.2 % (0-10); NRBC Flagged by Analyzer 0 % (0-5); Neutrophil # 5.06 X10^3/uL (2.7-7.7); Neutrophil % 84.6 % (47-70); POSITIVE DIFFERENTIAL YES; Platelet Count 362 K/mm3 (150-450); RBC Distribution Width CV 17.8 % (11.6-14.6); Red Blood Count 2.97 M/mm3 (4.6-6.2)
[2025-03-09 06:32] LABS: Anion Gap 11 (5-15); BUN 14 mg/dL (4-19); BUN/Creat Ratio 20.2 RATIO (10-20); Carbon Dioxide 30.6 mmol/L (21.0-32.0); Chloride 99 mmol/L (98-108); Creatinine, Serum 0.68 mg/dL (0.70-1.20); EST Glomerular Filtration Rate 96 (>60); Estimated Creatinine Clearance 62.11 ml/min (50-250); Glucose 71 mg/dL (70-99); Potassium 3.5 mmol/L (3.3-5.1); Sodium Level 140 mmol/L (133-145)
[2025-03-09] MEDS: Midodrine HCl 5 MG Tablet 10 MG PO ×3 (08:20→17:21)
[2025-03-09] MEDS: Acetaminophen 325 MG Tablet 650 MG PO (08:59)
[2025-03-09] MEDS: Metoprolol Tartrate 25 MG Tablet 12.5 MG PO ×2 (10:16→21:04)
[2025-03-09] MEDS: Escitalopram Oxalate 10 MG Tablet PO (10:17)
--- NOTE | 2025-03-09 10:21 | PCM.PN.INT ---
Assessment & Plan Assessment/Plan (1) Abnormal pleural fluid: PLAN: Plan RECOMMENDATIONS: 1. Await finalized pleural fluid analysis, including cytology. 2. Continue empiric antibiotics to address right lower lobe pneumonia. Recommend 7-day treatment course. 3. The patient should follow-up with his primary plate worker Dr. Ajay Malagon regarding ongoing care and management after discharge. IMPRESSIONS: 1. Pleural effusion In April 2024, the patient was noted to have a right sided exudative pleural effusion with atypical mesothelial proliferation. To date, the patient has already been evaluated by an outside plate worker, cardiothoracic surgery and oncology. On September 16 2024, the patient underwent a right pleuroscopy with conversion to mini thoracotomy with partial decortication and pleural biopsies per outside cardiothoracic surgery. 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 During this admission, he does appear to have bilateral pleural effusions on his most recent CTA chest with evidence of a right lower lobe consolidation with air bronchograms. The left-sided pleural effusion appears transudative in nature. No additional intervention or workup is required at this time regarding the patient's left-sided effusion, while awaiting cytology results. I agree with continuing antibiotics to address his right lower lobe pneumonia. Continue to wean supplemental oxygen to maintain saturations at or above 90%. The patient should ultimately follow-up with his primary plate worker after discharge. This note was generated with [employer] dictation software. It may contain incorrect words, spelling, and punctuation that were not noted in checking the note before signing. Subjective Subjective The patient was seen and examined at the bedside this morning. Events from the last 24 hours have been reviewed. The patient is currently afebrile, hemodynamically stable and maintaining appropriate oxygen saturations on 2 L/min via nasal cannula. White blood cell count remains normal. Chemistry profile was unremarkable. Medical records regarding the patient's September hospitalization at [facility] was obtained and reviewed. The patient was admitted to that hospital September 16, during which time, he was evaluated by cardiothoracic surgery. According to documentation, on September 16, the patient underwent a right pleuroscopy with conversion to minithoracotomy with partial decortication and pleural biopsies per cardiothoracic surgery. 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 Objective Data Objective Data The patient's most recent lab work, culture data and imaging studies have all been personally reviewed. Pleural fluid cytology is pending. Vital Signs: Vital Signs Temp Pulse Resp BP Pulse Ox O2 Del Method O2 Flow Rate 98.6 F 86 16 113/59 L 96 Nasal Cannula 2 03/09/25 08:06 03/09/25 08:06 03/09/25 08:06 03/09/25 08:06 03/09/25 08:06 03/09/25 08:08 03/09/25 08:08 Oxygen Flow Rate (L/min) 2 Oxygen Delivery Method Nasal Cannula Weight: 123 lb 3.814 oz Body Mass Index (BMI) 17.2 Intake & Output: Intake and Output for Last 24 Hours 03/07/25 03/08/25 03/09/25 23:59 23:59 23:59 Intake Total 2474.75 / 2474.75 350 / 350 50 / 50 Output Total 3040 / 3040 725 / 1025 425 / 425 Balance -565.25 / -565.25 -375 / -675 -375 / -375 Medical Nutrition Assessment Dietitian: Malnutrition Criteria Met Start: 03/07/25 15:56 Freq: Status: Active Protocol: Document 03/07/25 15:56 RMA (Rec: 03/07/25 15:57 RMA [id number]) Nutrition Malnutrition Evidence of Yes Malnutrition Exists Malnutrition (severe Acute Illness/Injury ): Evidenced By Suboptimal Energy Intake (Severe),Weight Loss (Severe), Physical Changes (Moderate) Intake Problem Inadequate Oral Intake Etiology related to altered GI function/ileus Signs/Symptoms as evidenced by NPO Status Active Problem Clinical Problem Acute Disease or Injury Related Malnutrition Etiology severe protein-calorie malnutrition in the context of acute illness related to altered GI function and inability to take adequate energy/pro Signs/Symptoms as evidenced by current NPO, BMI 17.2, unintentional weight loss ~18% body weight x 9-10 months (less than 1 year time frame), muscle wasting/fat depletion noted in clavicle area, PO meeting less than 75% estimated nutrition needs x 6 months Status Active Problem Recommendation Dietitian Recommend advance diet as tolerated to Transitional Recommendations/ with goal of liberalized regular diet. Changes Will offer ONS as diet able to advance from NPO. Consider nutrition support if PO remains poor and weight continues to decline. Lab / Micro Data Attestation: I reviewed the patient's lab results. 03/09/25 05:05 03/09/25 05:05 Labs: Laboratory Results - last 24 hr 03/09/25 05:05: WBC 6.0, RBC 2.97 L, Hgb 7.9 L, Hct 25.5 L, MCV 85.9, MCH 26.6 L, MCHC 31.0 L, RDW Std Deviation 56.0 H, RDW Coeff of Wilbert 17.8 H, Plt Count 362, MPV 9.6, Immature Gran % (Auto) 0.300, Neut % (Auto) 84.6 H, Lymph % (Auto) 9.0 L, [place] % (Auto) 5.2, Eos % (Auto) 0.7, Baso % (Auto) 0.2, Absolute Neuts (auto) 5.1, Absolute Lymphs (auto) 0.54 L, Nucleated RBC % 0, Sodium 140, Potassium 3.5, Chloride 99, Carbon Dioxide 30.6, Anion Gap 11, BUN 14, Creatinine 0.68 L, Estim Creat Clear Calc 62.11, Est GFR (MDRD) Non-Af 96, BUN/Creatinine Ratio 20.2 H, Glucose 71, Calcium 9.0 Micro: Microbiology 03/06/25 09:24 Stool Stool Occult Blood (DESHAUN) - Final Occult Blood Positive Radiography Diagnostic Testing: Radiology Impression Chest X-Ray 03/07/25 09:00 IMPRESSION: No evidence of pneumothorax following the left thoracentesis. Reading Location: [facility] Physical Exam Const alert and no apparent distress General Appearance: cooperative HEENT normocephalic, head/scalp atraumatic and moist oral mucous membranes Eyes PERRL, EOMs intact bilaterally and conjunctivae normal Neck supple General: trachea midline Chest inspection of chest normal Resp normal respiratory effort Auscultation: diminished lung sounds Cardio regular rate and regular rhythm GI normal to inspection, nondistended, normoactive bowel sounds Extremity no clubbing, cyanosis or edema Skin no rashes or lesions noted Neuro CN's II-XII intact bilaterally, moves all extremities and no focal motor deficits Psych cooperative and affect normal Charges/Coding Visit Charges Inpatient E&M: 52873 Subs Hosp L2
[2025-03-09] MEDS: Pantoprazole Sodium 40 MG in 0.9% Normal Saline (100mL MB+) 100 ML 330 MG IV ×2 (11:34→21:03)
--- NOTE | 2025-03-09 14:51 | PN_ITS ---
Subjective Subjective Patient seen and examined. HE was lying calmly in bed and had no active complaints. Review of systems is otherwise negative. He has remained hemodynamically stable. Objective Data Objective Data Vital Signs: Vital Signs Temp Pulse Resp BP Pulse Ox O2 Del Method O2 Flow Rate 97.9 F 80 16 117/65 100 Room Air 2 03/09/25 14:19 03/09/25 14:19 03/09/25 14:19 03/09/25 14:19 03/09/25 14:19 03/09/25 14:19 03/09/25 08:08 Oxygen Flow Rate (L/min) 2 Oxygen Delivery Method Room Air Weight: 123 lb 3.814 oz Body Mass Index (BMI) 17.2 Intake & Output: Intake and Output for Last 24 Hours 03/07/25 03/08/25 03/09/25 23:59 23:59 23:59 Intake Total 2474.75 / 2474.75 350 / 350 200 / 200 Output Total 3040 / 3040 725 / 1025 425 / 425 Balance -565.25 / -565.25 -375 / -675 -225 / -225 Medical Nutrition Assessment Dietitian: Malnutrition Criteria Met Start: 03/07/25 15:56 Freq: Status: Active Protocol: Document 03/07/25 15:56 RMA (Rec: 03/07/25 15:57 RMA [id number]) Nutrition Malnutrition Evidence of Yes Malnutrition Exists Malnutrition (severe Acute Illness/Injury ): Evidenced By Suboptimal Energy Intake (Severe),Weight Loss (Severe), Physical Changes (Moderate) Intake Problem Inadequate Oral Intake Etiology related to altered GI function/ileus Signs/Symptoms as evidenced by NPO Status Active Problem Clinical Problem Acute Disease or Injury Related Malnutrition Etiology severe protein-calorie malnutrition in the context of acute illness related to altered GI function and inability to take adequate energy/pro Signs/Symptoms as evidenced by current NPO, BMI 17.2, unintentional weight loss ~18% body weight x 9-10 months (less than 1 year time frame), muscle wasting/fat depletion noted in clavicle area, PO meeting less than 75% estimated nutrition needs x 6 months Status Active Problem Recommendation Dietitian Recommend advance diet as tolerated to Transitional Recommendations/ with goal of liberalized regular diet. Changes Will offer ONS as diet able to advance from NPO. Consider nutrition support if PO remains poor and weight continues to decline. Lab / Micro Data 03/09/25 05:05 03/09/25 05:05 Labs: Laboratory Results - last 24 hr 03/09/25 05:05: WBC 6.0, RBC 2.97 L, Hgb 7.9 L, Hct 25.5 L, MCV 85.9, MCH 26.6 L , MCHC 31.0 L, RDW Std Deviation 56.0 H, RDW Coeff of Wilbert 17.8 H, Plt Count 362, MPV 9.6, Immature Gran % (Auto) 0.300, Neut % (Auto) 84.6 H, Lymph % (Auto) 9.0 L, [place] % (Auto) 5.2, Eos % (Auto) 0.7, Baso % (Auto) 0.2, Absolute Neuts (auto) 5.1, Absolute Lymphs (auto) 0.54 L, Nucleated RBC % 0, Sodium 140, Potassium 3.5, Chloride 99, Carbon Dioxide 30.6, Anion Gap 11, BUN 14, Creatinine 0.68 L, Estim Creat Clear Calc 62.11, Est GFR (MDRD) Non-Af 96, BUN/Creatinine Ratio 20.2 H, Glucose 71, Calcium 9.0 Micro: Microbiology 03/06/25 09:24 Stool Stool Occult Blood (DESHAUN) - Final Occult Blood Positive Physical Exam Const alert, oriented x3 and no apparent distress Constitutional Narrative: frail General Appearance: cooperative HEENT normocephalic, head/scalp atraumatic and hearing grossly normal bilaterally Eyes PERRL, EOMs intact bilaterally and conjunctivae normal Neck no lymphadenopathy and supple Lymph Lymphatic: no lymphadenopathy noted Resp normal respiratory effort, no retractions, no use of accessory muscles and clear to auscultation bilaterally Resp Narrative: mildly diminished breath sounds bibasally, no wheezes or crackles. On room air Cardio regular rate, regular rhythm, S1 normal heart sound, S2 normal heart sound and no murmurs GI normal to inspection, nondistended, normoactive bowel sounds, soft to palpation, non-tender and non-distended Extremity normal to inspection, full ROM and no clubbing, cyanosis or edema General Extremity: no tenderness to palpation of joints or extremities Skin General Skin Exam: no breakdown Neuro oriented x3, CN's II-XII intact bilaterally, moves all extremities and no focal motor deficits Sensorium / Orientation: awake and alert Motor Exam: strength 5/5 throughout and general weakness Psych thought process normal, cooperative and affect normal Appearance: appropriate Assessment & Plan Assessment/Plan (1) GI bleed: PLAN: Plan #Intestinal ileus in the setting of possible GI bleed * Is not on any blood thinners. Had CT abdomen which showed severe fecal impaction without evidence of diffuse distention with borderline dilatation of small bowel loops likely secondary to stool burden as well as progression of right lower lobe consolidation and increased size of the small right and moderate left pleural effusions with pleural nodularity * had EGD which showed [place] tear which was treated with argon plasma coagulation and erosive gastritis but 3 with no stigmata of recent bleeding and no gross lesions in the entire examined duodenum. * IV pantoprazole 40 mg twice daily. stool for occult blood was positive. * resolved. * #Bilateral pleural effusions with right lower lobe consolidation * Did have this during previous admission and the pleural effusion is actually worsened. * He had thoracentesis with analysis of the pleural fluid back on 04/26/2024 which showed atypical mesothelial proliferation * Patient and his daughter tell me he did follow up with oncology and pulmonology. They were told he did not have cancer. * however, patient has lost ~ 50+ pounds within a year. CXR findings as above * had left thoracentesis with removal of 390 cc of fluid from the left pleural cavity * pulmonology on board * Repeat CTA of the chest done on account of elevated D-dimer showed right lower lobe consolidation with air bronchograms concerning for infection and layering debris within the trachea and layering fluid within the esophagus as well as large bilateral pleural effusions with compressive atelectasis, circumferential wall thickening of the esophagus concerning for esophagitis and 7 mm right middle lobe pulmonary nodule * Analysis of the left pleural fluid done showed that it was transudative in nature. * on IV Zosyn * Breathing treatments bronchodilators. Titrate oxygen to maintain saturation above 90%. * pleural fluid cytolocy still pending * #Intermittent SVT * patient has had intermittent SVT with his HR going as high as the 150s, but immediately goes down to normal 70s and 80s * CT chest was negative for any evidence of PE * potassium and magnesium have been WNL * 2D echo showed EF of 55-60% with no valvular abnormalities. * patient was started on PO metoprolol 25mg bid. * His heart rate has been in the mid 90s all day today. I was going to consult cardiology, but will hold that now as his heart rate has been controlled all day today per his nurse. If HR goes up again, low threshold to consult cardiology. * #History of orthostatic hypotension: On midodrine. Midodrine dc'd per GI. #Acute on chronic anemia: * Hemoglobin is 7.9. Has been between 8 and 9 since admission. * Will monitor closely and transfuse if it drops below 7. #Hyperlipidemia: On statin #BPH: On Flomax #Depression: on escitalopram DVT prophylaxis: SCDs CODE STATUS:full code Of note, patient has prior records brought in and in the system. It shows that he had right-sided thoracentesis in April 2024 and repeat thoracentesis in 2024 at [facility]. CT chest done on 08/23/2024 showed volume loss on the right side with diffuse right pleural thickening and small areas of pleural calcification and a small loculated right pleural effusion. On 09/16/2024 he had right total [place] P with conversion to minithoracotomy with partial decub education and pleural biopsies. 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 The fluid analysis also showed lymphocytosis and numerous mature lymphocytes but no evidence of carcinoma. Charges/Coding Visit Charges Inpatient E&M: 96309 Subs Hosp L2
[2025-03-09] MEDS: Tamsulosin HCl 0.4 MG Capsule 0.8 MG PO (17:21)
[2025-03-09] MEDS: 0.9% Saline Lock 10 ML Syringe IV (19:14)
[2025-03-09] MEDS: Pravastatin 40 MG Tablet PO (21:05)
[2025-03-10 03:59] LABS: Absolute Lymphocyte Count 0.61 X10^3/uL (0.83-4.51); Absolute Neutrophil Count 4.7 X10^3/uL (2.0-7.7); Basophil# 0.01 X10^3/uL; Basophil% 0.2 % (0-1); Eosinophil# 0.07 X10^3/uL; Eosinophils% 1.2 % (0-5); Hematocrit 26.8 % (40-54); Hemoglobin 8.2 g/dL (13.0-16.5); Lymphocyte # 0.61 X10^3/ul (0.83-4.51); Lymphocyte % 10.5 % (19-41); Mean Corp Hgb Conc 30.6 g/dL (32-36); Mean Corpuscular Hgb 26.5 pg (27.0-32.0); Mean Corpuscular Volume 86.7 fL (80-94); Mean Platelet Vol. 9.3 fl (6.2-12.0); Monocyte# 0.34 X10^3/uL; Monocyte% 5.9 % (0-10); NRBC Flagged by Analyzer 0 % (0-5); Neutrophil # 4.74 X10^3/uL (2.7-7.7); Neutrophil % 81.7 % (47-70); Platelet Count 358 K/mm3 (150-450); RBC Distribution Width CV 17.7 % (11.6-14.6); RBC Distribution Width SD 56.1 fl (35.1-43.9); Red Blood Count 3.09 M/mm3 (4.6-6.2); White Blood Count 5.8 K/mm3 (4.4-11.0)
[2025-03-10 04:34] LABS: Anion Gap 8 (5-15); BUN 13 mg/dL (4-19); BUN/Creat Ratio 18.4 RATIO (10-20); Calcium,Total 9.1 mg/dL (7.6-11.0); Carbon Dioxide 32.6 mmol/L (21.0-32.0); Chloride 99 mmol/L (98-108); Creatinine, Serum 0.72 mg/dL (0.70-1.20); EST Glomerular Filtration Rate 95 (>60); Estimated Creatinine Clearance 62.11 ml/min (50-250); Glucose 106 mg/dL (70-99); Potassium 3.3 mmol/L (3.3-5.1); Sodium Level 140 mmol/L (133-145)
[2025-03-10] MEDS: 0.9% Normal Saline (250mL Bag) 250 ML 15 ML IV (04:42)
[2025-03-10] MEDS: Morphine 2 MG/ML Syringe IV (04:42)
[2025-03-10] MEDS: Piperacil/Tazobactam 3.375 GM in 0.9% Normal Saline (50mL MB+) 50 ML IV ×3 (05:04→21:31)
[2025-03-10 07:01] VITALS: O2SAT 95
[2025-03-10 07:50] VITALS: BP 151/85; PULSE 88; RESP 18; TEMP 36.4; O2SAT 95
[2025-03-10] MEDS: Escitalopram Oxalate 10 MG Tablet PO (07:57)
[2025-03-10] MEDS: Midodrine HCl 5 MG Tablet 10 MG PO (07:57)
--- NOTE | 2025-03-10 08:40 | PN.CC_ITS ---
Objective Data Objective Data Vital Signs: Vital Signs Last response 3 Temperature 36.4 C L 03/10/25 07:50 Temperature Source Oral 03/10/25 07:50 Pulse Rate 88 03/10/25 07:50 Pulse Strength Normal (2+) 03/10/25 07:44 Respiratory Rate 18 03/10/25 07:50 Respiratory Effort Normal, Non-Labored 03/10/25 07:52 Respiratory Depth Normal 03/10/25 07:52 Respiratory Pattern Normal 03/10/25 07:52 Blood Pressure 151/85 H 03/10/25 07:50 Blood Pressure Mean 107 03/10/25 07:50 Blood Pressure Source Monitor 03/10/25 07:50 Blood Pressure Position Sitting 03/10/25 07:50 Blood Pressure Location Right Arm 03/10/25 07:50 Baseline BP 119/53 03/07/25 16:00 Pulse Ox 95 03/10/25 07:50 Oxygen Delivery Method Nasal Cannula 03/10/25 07:52 Oxygen Flow Rate (L/min) 2 03/10/25 07:52 I&O: I&O Last 24 Hours 3 03/09/25 03/09/25 03/10/25 11:59 23:59 11:59 Intake Total 100 / 350 250 / 350 54.5 / 54.5 Output Total 425 / 925 300 / 925 1000 / 1000 Balance -325 / -575 -50 / -575 -945.5 / -945.5 I&O: Total Stay 3 03/06/25 09:07 thru 03/10/25 05:54 Intake Total 5469.25 Output Total 6590 Balance -1120.75 Current Meds Ordered / Administered: Current meds ordered / Administered 3 Generic Name Dose Route Start Last Admin Trade Name Freq PRN Reason Stop Dose Admin Acetaminophen 650 mg 03/06/25 13:04 03/09/25 08:59 Acetaminophen 325 Mg Tablet PO 650 mg Q4H PRN Administration Fever, pain 1-10/10 Albuterol/Ipratropium 3 ml 03/06/25 13:04 Ipratropium/Albuterol Sulfate 3 Ml Ampul.Neb INHALATION Q6H PRN dyspnea/wheezing Escitalopram Oxalate 10 mg 03/07/25 10:00 03/10/25 07:57 Escitalopram Oxalate 10 Mg Tablet PO 10 mg DAILY AUGUSTIN Administration Sodium Chloride 250 mls @ 15 mls/hr 03/06/25 13:12 03/10/25 05:00 IV 0 mls/hr .[id number] PRN Infusion Saline Flush Sodium Chloride 250 mls @ 15 mls/hr 03/06/25 13:12 IV .[id number] PRN Additional IVPB Infusion Pantoprazole Sodium 40 mg/ 100 mls @ 330 mls/hr 03/06/25 22:00 03/09/25 21:22 Sodium Chloride IV Infused Q12 AUGUSTIN Infusion Piperacillin Sod/Tazobactam 50 mls @ 12.5 mls/hr 03/08/25 07:30 03/10/25 05:04 Sod 3.375 gm/ Sodium Chloride IV 12.5 mls/hr Q8 AUGUSTIN Administration Metoprolol Tartrate 12.5 mg 03/07/25 19:35 03/09/25 21:04 Metoprolol Tartrate 25 Mg Tablet PO 12.5 mg BID AUGUSTIN Administration Protocol Midodrine 10 mg 03/06/25 13:04 03/10/25 07:57 Midodrine Hcl 5 Mg Tablet PO 10 mg TIDCM AUGUSTIN Administration Morphine Sulfate 2 - 4 mg 03/06/25 13:43 03/10/25 04:42 Morphine 2 Mg/Ml Syringe IV 2 mg Q3H PRN PRN Administration Pain Score 6-10 Morphine Sulfate 2 - 4 mg 03/06/25 13:51 Morphine 4 Mg/Ml Syringe IV Q3H PRN PRN Pain Score 6-10 Nitroglycerin 0.4 mg 03/06/25 13:43 Nitroglycerin (Inpatient Use) 0.4 Mg Tab.Subl SL Q5M PRN CARDIAC/CHEST PAIN Ondansetron HCl 4 mg 03/06/25 13:43 03/06/25 23:13 Ondansetron 4 Mg/2 Ml Vial IV 4 mg Q8H PRN PRN Administration NAUSEA/VOMITING Pravastatin Sodium 40 mg 03/06/25 22:00 03/09/25 21:05 Pravastatin 40 Mg Tablet PO 40 mg QHS AUGUSTIN Administration Sodium Chloride 10 - 40 ml 03/06/25 13:12 03/09/25 19:14 0.9% Saline Lock 10 Ml Syringe IV 10 ml UD PRN Administration SALINE FLUSH Tamsulosin HCl 0.8 mg 03/06/25 17:30 03/09/25 17:21 Tamsulosin Hcl 0.4 Mg Capsule PO 0.8 mg 1730 [facility] Administration Medical Records Data Medical Nutrition Assessment Dietitian: Malnutrition Criteria Met Start: 03/07/25 15:56 Freq: Status: Active Protocol: Document 03/07/25 15:56 RMA (Rec: 03/07/25 15:57 RMA [id number]) Nutrition Malnutrition Evidence of Yes Malnutrition Exists Malnutrition (severe Acute Illness/Injury ): Evidenced By Suboptimal Energy Intake (Severe),Weight Loss (Severe), Physical Changes (Moderate) Intake Problem Inadequate Oral Intake Etiology related to altered GI function/ileus Signs/Symptoms as evidenced by NPO Status Active Problem Clinical Problem Acute Disease or Injury Related Malnutrition Etiology severe protein-calorie malnutrition in the context of acute illness related to altered GI function and inability to take adequate energy/pro Signs/Symptoms as evidenced by current NPO, BMI 17.2, unintentional weight loss ~18% body weight x 9-10 months (less than 1 year time frame), muscle wasting/fat depletion noted in clavicle area, PO meeting less than 75% estimated nutrition needs x 6 months Status Active Problem Recommendation Dietitian Recommend advance diet as tolerated to Transitional Recommendations/ with goal of liberalized regular diet. Changes Will offer ONS as diet able to advance from NPO. Consider nutrition support if PO remains poor and weight continues to decline. Lab / Micro Data 03/10/25 03:48 03/10/25 03:48 Labs: Laboratory Results - last 24 hr 03/10/25 03:48: WBC 5.8, RBC 3.09 L, Hgb 8.2 L, Hct 26.8 L, MCV 86.7, MCH 26.5 L , MCHC 30.6 L, RDW Std Deviation 56.1 H, RDW Coeff of Wilbert 17.7 H, Plt Count 358, MPV 9.3, Immature Gran % (Auto) 0.500, Neut % (Auto) 81.7 H, Lymph % (Auto) 10.5 L, [place] % (Auto) 5.9, Eos % (Auto) 1.2, Baso % (Auto) 0.2, Absolute Neuts (auto) 4.7, Absolute Lymphs (auto) 0.61 L, Nucleated RBC % 0, Sodium 140, Potassium 3.3, Chloride 99, Carbon Dioxide 32.6 H, Anion Gap 8, BUN 13, Creatinine 0.72, Estim Creat Clear Calc 62.11, Est GFR (MDRD) Non-Af 95, BUN/Creatinine Ratio 18.4, Glucose 106 H, Calcium 9.1 Assessment and Plan . Assessment and plan: Pulmonary Brief Update Note Pt remains stable on 2L NC. Await pleural fluid studies/cytology as per prior note, and will need OP pulmonary clinic follow-up. We will monitor peripherally at this time, but please call us if any questions or if clinical worsening. Javed Richter MD
--- NOTE | 2025-03-10 08:57 | CASEMGMT ---
Addendum entered by Norma Archuleta 03/10/25 12:10: [facility]. RN CM into pt room, explained form to pt. Pt signed form. [facility] and filed in pt chart. Original Note: Received tc [facility]. RN CM into pt room, pt declines transfer. Declination form to be faxed.
[2025-03-10 09:11] LABS: Pathologist Comment/Body Fluid Reviewed
--- NOTE | 2025-03-10 09:15 | RAD_ITS ---
EXAM: XR Abdomen, 1 View CLINICAL INDICATION: SOB TECHNIQUE: Frontal supine view of the abdomen/pelvis. COMPARISON: No relevant prior studies available. FINDINGS: GASTROINTESTINAL TRACT: Multiple distended elongated small bowels measuring up to 4.8 cm, concerning for small-bowel obstruction. BONES/JOINTS: Unremarkable. No acute fracture. VASCULATURE: Indwelling aortic endograft. RAD/Abdomen Single View IMPRESSION: Multiple distended elongated small bowels measuring up to 4.8 cm, concerning fo r small-bowel obstruction. Reading [facility]
--- NOTE | 2025-03-10 09:15 | RAD_ITS ---
EXAM: XR Chest, 2 Views CLINICAL INDICATION: SOB TECHNIQUE: Frontal and lateral views of the chest. COMPARISON: No relevant prior studies available. FINDINGS: LUNGS AND PLEURAL SPACES: Right pleural effusion. Pulmonary venous congestion. No consolidation. No pneumothorax. HEART: Unremarkable. No cardiomegaly. MEDIASTINUM: Unremarkable. Normal mediastinal contour. BONES/JOINTS: Unremarkable. No acute fracture. RAD/Chest PA and Lateral IMPRESSION: 1. Right pleural effusion. 2. Pulmonary venous congestion. Reading [facility]
--- NOTE | 2025-03-10 09:41 | CASEMGMT ---
Social Work Per physician, pt will remain in hospital over the weekend. At this time, discussion for discharge planning is on hold pending medical workup. SW updated TCU that pt is not ready to return to TCU over the weekend. [facility] will continue to follow for dc planning when appropriate. LUISANA Solomon
[2025-03-10 10:02] VITALS: PULSE 88
[2025-03-10] MEDS: Metoprolol Tartrate 25 MG Tablet 12.5 MG PO (10:02)
--- NOTE | 2025-03-10 10:25 | NURSING ---
Daughter called who wa on HIPPA list and was given an update on how here rachna
[2025-03-10] MEDS: Pantoprazole Sodium 40 MG in 0.9% Normal Saline (100mL MB+) 100 ML 330 MG IV ×2 (10:29→21:26)
[2025-03-10] MEDS: Furosemide 40 MG/4 ML Vial IV ×2 (12:21→18:09)
--- NOTE | 2025-03-10 12:42 | CASEMGMT ---
Social Work SW received message from [facility]. Pt was active with services through this agency prior to admission to TCU. [place] [facility] requesting update with discharge plan when known. RNLUIS updated. LUISANA Solomon
--- NOTE | 2025-03-10 13:38 | PN_ITS ---
Subjective Subjective Patient seen and examined. He complained of abdominal distension, and also got short of breath overnight. He is now on 2L of oxygen. He denies any cough, chest pain, palpitations, dizziness, nausea, vomiting or any other symptoms. Review of systems is otherwise negative. Objective Data Objective Data Vital Signs: Vital Signs Temp Pulse Resp BP Pulse Ox O2 Del Method O2 Flow Rate 97.5 F L 88 18 151/85 H 95 Nasal Cannula 2 03/10/25 07:50 03/10/25 10:02 03/10/25 07:50 03/10/25 07:50 03/10/25 07:50 03/10/25 07:52 03/10/25 07:52 Oxygen Flow Rate (L/min) 2 Oxygen Delivery Method Nasal Cannula Weight: 123 lb 3.814 oz Body Mass Index (BMI) 17.2 Intake & Output: Intake and Output for Last 24 Hours 03/08/25 03/09/25 03/10/25 23:59 23:59 23:59 Intake Total 350 / 350 350 / 350 229.5 / 229.5 Output Total 725 / 1025 725 / 925 1000 / 1000 Balance -375 / -675 -375 / -575 -770.5 / -770.5 Medical Nutrition Assessment Dietitian: Malnutrition Criteria Met Start: 03/07/25 15:56 Freq: Status: Active Protocol: Document 03/07/25 15:56 RMA (Rec: 03/07/25 15:57 RMA [id number]) Nutrition Malnutrition Evidence of Yes Malnutrition Exists Malnutrition (severe Acute Illness/Injury ): Evidenced By Suboptimal Energy Intake (Severe),Weight Loss (Severe), Physical Changes (Moderate) Intake Problem Inadequate Oral Intake Etiology related to altered GI function/ileus Signs/Symptoms as evidenced by NPO Status Active Problem Clinical Problem Acute Disease or Injury Related Malnutrition Etiology severe protein-calorie malnutrition in the context of acute illness related to altered GI function and inability to take adequate energy/pro Signs/Symptoms as evidenced by current NPO, BMI 17.2, unintentional weight loss ~18% body weight x 9-10 months (less than 1 year time frame), muscle wasting/fat depletion noted in clavicle area, PO meeting less than 75% estimated nutrition needs x 6 months Status Active Problem Recommendation Dietitian Recommend advance diet as tolerated to Transitional Recommendations/ with goal of liberalized regular diet. Changes Will offer ONS as diet able to advance from NPO. Consider nutrition support if PO remains poor and weight continues to decline. Lab / Micro Data 03/10/25 03:48 03/10/25 03:48 Labs: Laboratory Results - last 24 hr 03/07/25 09:24: Fl Pathologist Comment Reviewed, Miscellaneous Cytology SEE PATHOLOGY REPORT 03/10/25 03:48: WBC 5.8, RBC 3.09 L, Hgb 8.2 L, Hct 26.8 L, MCV 86.7, MCH 26.5 L , MCHC 30.6 L, RDW Std Deviation 56.1 H, RDW Coeff of Wilbert 17.7 H, Plt Count 358, MPV 9.3, Immature Gran % (Auto) 0.500, Neut % (Auto) 81.7 H, Lymph % (Auto) 10.5 L, [place] % (Auto) 5.9, Eos % (Auto) 1.2, Baso % (Auto) 0.2, Absolute Neuts (auto) 4.7, Absolute Lymphs (auto) 0.61 L, Nucleated RBC % 0, Sodium 140, Potassium 3.3, Chloride 99, Carbon Dioxide 32.6 H, Anion Gap 8, BUN 13, Creatinine 0.72, Estim Creat Clear Calc 62.11, Est GFR (MDRD) Non-Af 95, BUN/Creatinine Ratio 18.4, Glucose 106 H, Calcium 9.1 Micro: Microbiology 03/06/25 09:24 Stool Stool Occult Blood (DESHAUN) - Final Occult Blood Positive Radiography Diagnostic Testing: Radiology Impression Chest X-Ray 03/10/25 09:15 IMPRESSION: 1. Right pleural effusion. 2. Pulmonary venous congestion. Reading Location: [facility] X-Ray 03/10/25 09:15 IMPRESSION: Multiple distended elongated small bowels measuring up to 4.8 cm, concerning for small-bowel obstruction. Reading Location: [facility] Physical Exam Const alert, oriented x3 and no apparent distress Constitutional Narrative: frail General Appearance: cooperative HEENT normocephalic, head/scalp atraumatic and hearing grossly normal bilaterally Eyes PERRL, EOMs intact bilaterally and conjunctivae normal Neck no lymphadenopathy and supple Lymph Lymphatic: no lymphadenopathy noted Resp no use of accessory muscles and clear to auscultation bilaterally Resp Narrative: mildly diminished breath sounds bibasally, no wheezes or crackles. on 2L of oxygen by nasal canula Cardio regular rate, regular rhythm, S1 normal heart sound, S2 normal heart sound and no murmurs GI GI Narrative: abdomen moderately distended, no tenderness or guarding. Extremity normal to inspection, full ROM, normal capillary refill and no clubbing, cyanosis or edema General Extremity: no tenderness to palpation of joints or extremities Skin General Skin Exam: no breakdown Neuro oriented x3, CN's II-XII intact bilaterally, moves all extremities and no focal motor deficits Sensorium / Orientation: awake and alert Motor Exam: strength 5/5 throughout and general weakness Psych thought process normal, cooperative and affect normal Appearance: appropriate Assessment & Plan Assessment/Plan (1) GI bleed: PLAN: Plan #Intestinal ileus in the setting of possible GI bleed * Is not on any blood thinners. Had CT abdomen which showed severe fecal impaction without evidence of diffuse distention with borderline dilatation of small bowel loops likely secondary to stool burden as well as progression of right lower lobe consolidation and increased size of the small right and moderate left pleural effusions with pleural nodularity * had EGD which showed Leah-[place] tear which was treated with argon plasma coagulation and erosive gastritis but 3 with no stigmata of recent bleeding and no gross lesions in the entire examined duodenum. * IV pantoprazole 40 mg twice daily. stool for occult blood was positive. * patient complaining of abdominal distension today. He is passing gas but has not had a bowel movement * stat abdominal xray done showed multiple distended elongated small bowels measuring up to 4.8cm, concerning for small bowel obstruction. * keep NPO. General surgery consulted. * #Bilateral pleural effusions with right lower lobe consolidation * Did have this during previous admission and the pleural effusion is actually worsened. * He had thoracentesis with analysis of the pleural fluid back on 04/26/2024 which showed atypical mesothelial proliferation * Patient and his daughter tell me he did follow up with oncology and pulmonology. They were told he did not have cancer. * however, patient has lost ~ 50+ pounds within a year. CXR findings as above * had left thoracentesis with removal of 390 cc of fluid from the left pleural cavity * pulmonology on board * Repeat CTA of the chest done on account of elevated D-dimer showed right lower lobe consolidation with air bronchograms concerning for infection and layering debris within the trachea and layering fluid within the esophagus as well as large bilateral pleural effusions with compressive atelectasis, circumferential wall thickening of the esophagus concerning for esophagitis and 7 mm right middle lobe pulmonary nodule * Analysis of the left pleural fluid done showed that it was transudative in nature. * on IV Zosyn * Breathing treatments bronchodilators. Titrate oxygen to maintain saturation above 90%. * pleural fluid cytology still pending * today, patient complained of shortness of breath again. Repeat CXR done today showed right pleural effusion and pulmonary venous congestion. * repeat therapeutic thoracentesis ordered. WIll diurese with IV lasix in the interim * check BNP also * #Intermittent SVT * patient has had intermittent SVT with his HR going as high as the 150s, but immediately goes down to normal 70s and 80s * CT chest was negative for any evidence of PE * potassium and magnesium have been WNL * 2D echo showed EF of 55-60% with no valvular abnormalities. * patient was started on PO metoprolol 25mg bid. * heart rate is much better controlled now, and has remained in the 80s and 90s. Continue metoprolol. * His heart rate has been in the mid 90s all day today. I was going to consult cardiology, but will hold that now as his heart rate has been controlled all day today per his nurse. If HR goes up again, low threshold to consult cardiology. * #History of orthostatic hypotension: On midodrine. Midodrine dc'd per GI. #Acute on chronic anemia: * Hemoglobin is 8.2. Has been between 8 and 9 since admission. * Will monitor closely and transfuse if it drops below 7. #Hyperlipidemia: On statin #BPH: On Flomax #Depression: on escitalopram DVT prophylaxis: SCDs CODE STATUS:full code Of note, patient has prior records brought in and in the system. It shows that he had right-sided thoracentesis in April 2024 and repeat thoracentesis in 20[facility] [address] [facility]. CT chest done on 08/23/2024 showed volume loss on the right side with diffuse right pleural thickening and small areas of pleural calcification and a small loculated right pleural effusion. On 09/16/2024 he had right total [place] P with conversion to minithoracotomy with partial decub education and pleural biopsies. 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 The fluid analysis also showed lymphocytosis and numerous mature lymphocytes but no evidence of carcinoma. Charges/Coding Visit Charges Inpatient E&M: 89279 Subs Hosp L2
[2025-03-10 14:50] VITALS: BP 115/67; PULSE 85; RESP 18; TEMP 36.6; O2SAT 97
[2025-03-10] MEDS: Fleet Enema 133 ML RC (15:05)
--- NOTE | 2025-03-10 15:28 | EX.PCM.CON.S ---
HPI Consult Data Date of Consult: 03/10/25 HPI Narrative Reason for Consultation: Small bowel obstruction HPI Narrative: BUZZ PUGH, is a 74 M who was recently admitted to the inpatient side of the hospital after being [facility] with complaints of coffee-ground emesis. This transfer was several days ago. He originally was admitted for syncope and failure to thrive. On the date of his transfer he had emesis that was thought to be coffee-ground in appearance. He was admitted and it sounds as though he underwent an EGD earlier this week. He also underwent a CT scan at the time of transfer and was noted some distended loops of small bowel as well as significant stool burden within the colon suggesting constipation. Patient states he has not had a bowel movement in about 4 to 5 days. Patient had increased abdominal distention today and an abdominal x-ray was performed and showed numerous dilated loops of small bowel concerning for bowel obstruction.. His only abdominal surgery was an endovascular AAA and inguinal hernia repair. General surgery consult was obtained for management of his bowel obstruction versus ileus. He states that he has not had any emesis. He admits to some nausea. He has not passed any bowel movements for several days. He states that he has not received any enemas or suppositories etc. to assist with bowel movements since being admitted [facility] Medical History Syncope Abnormal pleural fluid Kidney stones Former smoker On home oxygen therapy Anxiety and depression Chronic hypoxic respiratory failure COPD (chronic obstructive pulmonary disease) Former tobacco use Pneumothorax on right Pleural effusion on right Elevated blood pressure reading in office without diagnosis of hypertension (~2014) GERD (gastroesophageal reflux disease) Essential (primary) hypertension Hyperlipidemia Abdominal aortic aneurysm (AAA) Home Medications ?Medication ?Instructions ?Recorded ?Last Taken ?Type pravastatin 40 mg tablet 40 mg PO QHS high cholesterol 01/16/18 02/22/25 History aspirin 81 mg tablet,delayed 81 mg PO DAILY heart health 08/17/18 02/22/25 History release (Adult Low Dose Aspirin) escitalopram oxalate 10 mg tablet 10 mg PO DAILY depression 02/23/25 02/22/25 History food supplemt, lactose-reduced 120 ml PO 4X/DAY supplement #0 mL 02/27/25 Unknown Rx 0.08 gram-1.5 kcal/mL oral liquid (Ensure Plus High Protein) midodrine 5 mg tablet 10 mg (2 x 5 mg) PO TIDCM blood 02/27/25 Unknown Rx pressure #0 tabs acetaminophen 325 mg tablet 650 mg PO Q4H PRN Fever, pain 03/06/25 Unknown History 1-07/21 albuterol sulfate 2.5 mg/3 mL 2.5 mg inhalation Q2H PRN Dyspnea, 03/06/25 Unknown History (0.083 %) solution for nebulization wheezing ipratropium 0.5 mg-albuterol 3 mg 3 ml inhalation Q6H PRN 03/06/25 Unknown History (2.5 mg base)/3 mL nebulization dyspnea/wheezing soln tamsulosin 0.4 mg capsule 0.8 mg PO 1730 prostate 03/06/25 Unknown History Allergy/AdvReac Type Severity Reaction Status Date / Time No Known Allergies Allergy Verified 03/06/25 09:08 Family History Father Heart disease Hypertension Myocardial infarction TAA Sister Hypertension Mother Hypertension Surgical History S/P AAA repair History of placement of chest tube History of ear surgery History of inguinal hernia repair Social History household members: none Smoking Status: Former smoker how long ago did patient quit smoking: Quit 08/26/2011. alcohol intake: never substance use type: does not use Physical Exam Narrative He is alert and oriented x 3. He is in no acute distress. Head is normocephalic and atraumatic. Pupils are equal round and reactive to light. Abdomen is soft and slightly distended. No significant abdominal pain with palpation. No obvious masses or hernias Medical Records Data Medical Nutrition Assessment Dietitian: Malnutrition Criteria Met Start: 03/07/25 15:56 Freq: Status: Active Protocol: Document 03/10/25 13:40 SLA (Rec: 03/10/25 13:44 SLA [id number]) Nutrition Malnutrition Evidence of Yes Malnutrition Exists Malnutrition (severe Acute Illness/Injury ): Evidenced By Suboptimal Energy Intake (Severe),Weight Loss (Severe), Physical Changes (Moderate) Intake Problem Inadequate Oral Intake Etiology related to altered GI function/ileus Signs/Symptoms as evidenced by poor po intake Status Active Problem Clinical Problem Acute Disease or Injury Related Malnutrition Etiology severe protein-calorie malnutrition in the context of acute illness related to altered GI function and inability to take adequate energy/pro Signs/Symptoms as evidenced by current NPO, BMI 17.2, unintentional weight loss ~18% body weight x 9-10 months (less than 1 year time frame), muscle wasting/fat depletion noted in clavicle area, PO meeting less than 75% estimated nutrition needs x 6 months Status Active Problem Recommendation Dietitian Recommend advance diet as tolerated to Transitional Recommendations/ with goal of liberalized regular diet. Changes Will provide ensure plus high protein tid w/ meals Lab / Micro Data 03/10/25 03:48 03/10/25 03:48 Labs: Laboratory Results - last 24 hr 03/07/25 09:24: Fl Pathologist Comment Reviewed, Miscellaneous Cytology SEE PATHOLOGY REPORT 03/10/25 03:48: WBC 5.8, RBC 3.09 L, Hgb 8.2 L, Hct 26.8 L, MCV 86.7, MCH 26.5 L, MCHC 30.6 L, RDW Std Deviation 56.1 H, RDW Coeff of Wilbert 17.7 H, Plt Count 358, MPV 9.3, Immature Gran % (Auto) 0.500, Neut % (Auto) 81.7 H, Lymph % (Auto) 10.5 L, [place] % (Auto) 5.9, Eos % (Auto) 1.2, Baso % (Auto) 0.2, Absolute Neuts (auto) 4.7, Absolute Lymphs (auto) 0.61 L, Nucleated RBC % 0, Sodium 140, Potassium 3.3, Chloride 99, Carbon Dioxide 32.6 H, Anion Gap 8, BUN 13, Creatinine 0.72, Estim Creat Clear Calc 62.11, Est GFR (MDRD) Non-Af 95, BUN/Creatinine Ratio 18.4, Glucose 106 H, Calcium 9.1 Imaging Radiology Impression Chest X-Ray 03/10/25 09:15 IMPRESSION: 1. Right pleural effusion. 2. Pulmonary venous congestion. Reading Location: [facility] X-Ray 03/10/25 09:15 IMPRESSION: Multiple distended elongated small bowels measuring up to 4.8 cm, concerning for small-bowel obstruction. [facility] Charges/Coding Visit Charges Inpatient E&M: 45994 Init Hosp L3
[2025-03-10 16:43] LABS: Pro- Brain NATRIURETIC PEPTIDE 806 pg/mL (<=1800)
--- NOTE | 2025-03-10 17:57 | PCM.PN.BLA ---
Progress Note Patient has not been eating today due to worsening abdominal distention. Stat x-ray showed possible small bowel obstruction versus recurrent ileus. Physical Exam Const alert, oriented x3 and no apparent distress Constitutional Narrative: frail General Appearance: cooperative HEENT normocephalic, head/scalp atraumatic and hearing grossly normal bilaterally Eyes PERRL, EOMs intact bilaterally and conjunctivae normal Neck no lymphadenopathy and supple Lymph Lymphatic: no lymphadenopathy noted Resp no use of accessory muscles and clear to auscultation bilaterally Resp Narrative: mildly diminished breath sounds bibasally, no wheezes or crackles. on 2L of oxygen by nasal canula Cardio regular rate, regular rhythm, S1 normal heart sound, S2 normal heart sound and no murmurs GI GI Narrative: abdomen moderately distended, no tenderness or guarding. Extremity normal to inspection, full ROM, normal capillary refill and no clubbing, cyanosis or edema General Extremity: no tenderness to palpation of joints or extremities Skin General Skin Exam: no breakdown Neuro oriented x3, CN's II-XII intact bilaterally, moves all extremities and no focal motor deficits Sensorium / Orientation: awake and alert Motor Exam: strength 5/5 throughout and general weakness Psych thought process normal, cooperative and affect normal Appearance: appropriate Assessment & Plan Assessment/Plan (1) GI bleed: PLAN: Plan 74-year-old gentleman with distended abdomen and imaging evidence of severe constipation with ileus and possible gastroparesis without gastric outlet obstruction seen in the setting of possible GI bleed. Midodrine, can be associated with an ileus. Specifically, some case reports suggest that midodrine could have an inhibitory effect on intestinal motility, possibly leading to severe ileus. -Recommend to keep NG tube to low intermittent suction -The patient would likely need to have upper endoscopy tomorrow to evaluate cause of upper GI bleed -Protonix 40 mg IV twice daily -Stop midodrine -Workup for adrenal insufficiency in the setting of hypotension as he may need a mineralocorticoid or glucocorticoid for his hypotension Patient will undergo EGD today to evaluate his upper GI tract for GI bleed. He was explained alternatives, risk and benefits include not withstanding bleeding, infection, subs, perforation, need for emergent urgent . He will have an ASA of 3. 03/08/2025-the patient underwent an upper endoscopy yesterday. Findings: A 20 mm bleeding Leah-[place] tear with stigmata of recent bleeding was found. Coagulation for hemostasis using argon plasma at 0.3 liters/minute and 20 hensley was successful. Estimated blood loss was minimal. A few localized 5 mm erosions with no stigmata of recent bleeding were found in the gastric body. No gross lesions were noted in the entire examined duodenum. Impression: - Leah-[place] tear. Treated with argon plasma coagulation (APC). - Erosive gastropathy with no stigmata of recent bleeding. - No gross lesions in the entire examined duodenum. - No specimens collected. Recommendation: - Discharge patient to home. - Resume previous diet. - Continue present medications. - Clear liquid diet today. - Continue present medications. I do not know the etiology of his ileus. I suspect that it was from his midodrine as that is a known side effect. Low blood pressures possibly secondary to hypovolemia. His a.m. cortisol level and p.m. cortisol level were normal and not consistent with adrenal insufficiency. Hemoglobin seems to be stable. 03/10/2025-his hemoglobin seems to be stable from his previous [place] tear which was worsened by his previous in March tube placement. The differential diagnosis for recurrent ileus and recurrent pleural effusions with weight loss can be indicative of malabsorption, chylothorax, sarcoidosis, chronic pancreatitis, connective tissue disease or underlying malignancy. He has had recurrent thoracentesis in which the cytology is pending. It was identified as being a transudative fluid. I think that he should undergo testing for malabsorption including stool for alpha-1 antitrypsin, celiac disease, inflammatory bowel disease. Since it was a transudative fluid that was removed from his lungs I do not think it is a chylothorax. Autoimmune disease that can cause this scenario that would affect the lungs causing pleural effusion and the small bowel causing an ileus or obstruction would be sarcoidosis. He does not have any history of alcohol so I do not suspect chronic pancreatitis. Also , I did not see any signs of chronic pancreatitis on his previous imaging of the abdomen pelvis. However we can check a stool for fecal elastase. He should be checked for systemic lupus erythematosus and rheumatoid arthritis which can cause prior recurrent pleural effusions and recurrent ileus. Malignancy tumor markers can be checked with CA 19-9, CEA, alpha-fetoprotein. This also can be paraneoplastic phenomenon which lung pathology is actually causing small bowel issues. That would lead to a chronic intestinal pseudoobstruction of the small bowel secondary to small cell lung cancer. Visit Charges Inpatient E&M: 78840 Subs Hosp L3
[2025-03-10 19:59] VITALS: PULSE 93
[2025-03-10 20:29] LABS: CPK Total, Creatine Kinase 31 U/L (24-195)
[2025-03-10] MEDS: 0.9% Saline Lock 10 ML Syringe IV (21:26)
[2025-03-10] MEDS: Acetaminophen 325 MG Tablet 650 MG PO (21:26)
[2025-03-10] MEDS: Pravastatin 40 MG Tablet PO (21:31)
[2025-03-10 21:57] VITALS: BP 109/58; PULSE 94; RESP 16; TEMP 36.6; O2SAT 96
[2025-03-11] VITALS (32 sets, daily range): BP systolic 51–115; BP diastolic 33–100; PULSE 89–158; RESP 16–40; TEMP 36.1–36.8; O2SAT 91–100
[2025-03-11] MEDS: Menthol/Lanolin/Calamine/Znox 113 GM Tube 1 APPLIC TOPICAL ×2 (00:14→21:10)
[2025-03-11 00:41] LABS: LDH 174 U/L (87-241); Rheumatoid Factor < 10.0 IU/mL (<15)
--- NOTE | 2025-03-11 05:35 | RAD_ITS ---
PROCEDURE: ABD DECUB AND/OR ERECT(PORTABL 03/11/2025 REASON FOR EXAM: SBO TECHNIQUE: Two views; 2 right lateral decubitus and 2 supine images to include the abdomen and pelvis, 4 total images COMPARISON: 03/10/2025 FINDINGS: Similar appearance of long segment of several distended small bowel loops mostly left abdomen concerning for possibility of a distal small bowel obstruction not excluded and requires further clinical correlation. Patient may benefit from nasogastric decompression, clinically correlate. Several air-fluid levels are seen on the decubitus image without evidence of free air identified. There is again note of moderate amount of colonic stool. Aortoiliac endovascular stent graft repair again noted. Right base opacity and possible small right pleural effusion. RAD/Abd Decub and/or Erect(Portabl IMPRESSION: Similar appearance of long segment of several distended small bowel loops mostl y left abdomen concerning for possibility of a distal small bowel obstruction not excluded and requires further clinical corre lation. Patient may benefit from nasogastric decompression, clinically correlate. Several air-fluid levels are seen on the decubitus image without evidence of fr ee air identified. Reading Location: [id number]
[2025-03-11] MEDS: Piperacil/Tazobactam 3.375 GM in 0.9% Normal Saline (50mL MB+) 50 ML IV ×3 (06:11→21:39)
[2025-03-11 06:41] LABS: Absolute Lymphocyte Count 0.49 X10^3/uL (0.83-4.51); Absolute Neutrophil Count 6.4 X10^3/uL (2.0-7.7); Basophil# 0.01 X10^3/uL; Basophil% 0.1 % (0-1); Eosinophil# 0.02 X10^3/uL; Eosinophils% 0.3 % (0-5); Hematocrit 30.3 % (40-54); Hemoglobin 9.2 g/dL (13.0-16.5); Lymphocyte # 0.49 X10^3/ul (0.83-4.51); Lymphocyte % 6.7 % (19-41); Mean Corp Hgb Conc 30.4 g/dL (32-36); Mean Corpuscular Hgb 26.3 pg (27.0-32.0); Mean Corpuscular Volume 86.6 fL (80-94); Mean Platelet Vol. 9.7 fl (6.2-12.0); Monocyte# 0.39 X10^3/uL; Monocyte% 5.3 % (0-10); NRBC Flagged by Analyzer 0 % (0-5); Neutrophil # 6.41 X10^3/uL (2.7-7.7); Neutrophil % 87.3 % (47-70); POSITIVE DIFFERENTIAL YES; Platelet Count 464 K/mm3 (150-450); RBC Distribution Width CV 17.8 % (11.6-14.6); White Blood Count 7.3 K/mm3 (4.4-11.0)
[2025-03-11] MEDS: Metoprolol Tartrate 25 MG Tablet 12.5 MG PO (07:15)
--- NOTE | 2025-03-11 07:44 | PN.HOSP_ITS ---
Reason for Visit Reason for Visit: Diagnoses Gastrointestinal hemorrhage, unspecified (03/06/25) Unspecified abnormal finding in specimens from other organs, systems and tissues (03/06/25) Objective Data Objective Data Vital Signs: Vital Signs Temp Pulse Resp BP Pulse Ox O2 Del Method O2 Flow Rate 97.5 F L 142 H 22 H 113/71 98 Nasal Cannula 2 03/11/25 06:02 03/11/25 07:15 03/11/25 06:13 03/11/25 06:02 03/11/25 06:02 03/11/25 06:13 03/11/25 06:13 FiO2 98 03/11/25 06:13 Oxygen Flow Rate (L/min) 2 Oxygen Delivery Method Nasal Cannula Weight: 123 lb 3.814 oz Body Mass Index (BMI) 17.2 Intake & Output: Intake and Output for Last 24 Hours 03/09/25 03/10/25 03/11/25 23:59 23:59 23:59 Intake Total 350 / 350 379.5 / 379.5 120 / 120 Output Total 725 / 925 4400 / 4800 850 / 850 Balance -375 / -575 -4020.5 / -4420.5 -730 / -730 Medical Nutrition Assessment Dietitian: Malnutrition Criteria Met Start: 03/07/25 15:56 Freq: Status: Active Protocol: Document 03/10/25 13:40 SLA (Rec: 03/10/25 13:44 SLA [id number]) Nutrition Malnutrition Evidence of Yes Malnutrition Exists Malnutrition (severe Acute Illness/Injury ): Evidenced By Suboptimal Energy Intake (Severe),Weight Loss (Severe), Physical Changes (Moderate) Intake Problem Inadequate Oral Intake Etiology related to altered GI function/ileus Signs/Symptoms as evidenced by poor po intake Status Active Problem Clinical Problem Acute Disease or Injury Related Malnutrition Etiology severe protein-calorie malnutrition in the context of acute illness related to altered GI function and inability to take adequate energy/pro Signs/Symptoms as evidenced by current NPO, BMI 17.2, unintentional weight loss ~18% body weight x 9-10 months (less than 1 year time frame), muscle wasting/fat depletion noted in clavicle area, PO meeting less than 75% estimated nutrition needs x 6 months Status Active Problem Recommendation Dietitian Recommend advance diet as tolerated to Transitional Recommendations/ with goal of liberalized regular diet. Changes Will provide ensure plus high protein tid w/ meals Lab / Micro Data 03/11/25 06:20 03/11/25 06:20 Labs: Laboratory Results - last 24 hr 03/07/25 09:24: Fl Pathologist Comment Reviewed, Miscellaneous Cytology SEE PATHOLOGY REPORT 03/10/25 03:48: NT pro BNP II 806 03/10/25 19:00: Lactate Dehydrogenase 174, Total Creatine Kinase 31, Rheumatoid Factor < 10.0, DORCAS-1 Antibody TNP, Sm (De La Rosa) Antibody TNP, FREELANCE GRAPHIC DESIGNER Antibody TNP, Scl-70 Scleroderma Ab TNP, Antichromatin Antibodies TNP, Centromere B Antibody TNP 03/11/25 06:20: WBC 7.3, RBC 3.50 L, Hgb 9.2 L, Hct 30.3 L, MCV 86.6, MCH 26.3 L , MCHC 30.4 L, RDW Std Deviation 56.0 H, RDW Coeff of Wilbert 17.8 H, Plt Count 464 H, MPV 9.7, Immature Gran % (Auto) 0.300, Neut % (Auto) 87.3 H, Lymph % (Auto) 6.7 L, [place] % (Auto) 5.3, Eos % (Auto) 0.3, Baso % (Auto) 0.1, Absolute Neuts (auto) 6.4, Absolute Lymphs (auto) 0.49 L, Nucleated RBC % 0 Micro: Microbiology 03/06/25 09:24 Stool Stool Occult Blood (DESHAUN) - Final Occult Blood Positive Radiography Diagnostic Testing: Radiology Impression Chest X-Ray 03/10/25 09:15 IMPRESSION: 1. Right pleural effusion. 2. Pulmonary venous congestion. Reading Location: [facility] KUB X-Ray 03/10/25 09:15 IMPRESSION: Multiple distended elongated small bowels measuring up to 4.8 cm, concerning for small-bowel obstruction. Reading Location: [facility] Abdomen X-Ray 03/11/25 05:35 IMPRESSION: Similar appearance of long segment of several distended small bowel loops mostly left abdomen concerning for possibility of a distal small bowel obstruction not excluded and requires further clinical correlation. Patient may benefit from nasogastric decompression, clinically correlate. Several air-fluid levels are seen on the decubitus image without evidence of free air identified. Reading Location: [facility] Physical Exam Narrative seen and examined I was calling early in the morning at that patient heart rate is 170/m. Earlier patient had 12.5 mg metoprolol and heart rate sustaining in the 150s. I quickly came patient. Patient blood pressure found no 85/54, close BP 62/41, the patient was started on IV fluid Ringer lactate and transferred to ICU. Looks dehydrated. Prior to that patient received 2 enema and had a bowel movement and passed flatus. He had small bowel obstruction being followed with surgery. He also had right pleural effusion, thoracocentesis due for today but will cancel it until pt is stabilized. Patient stated he short of breath for a while. Denies chest pain but he is dizzy and lightheaded. Physical exam General: Alert, Oriented x3, Cooperative, short of breath. BMI 17.2 kg/m?. He has malnutrition. HEENT: Atraumatic, PERRLA, EOMI, Normocephalic. Oral: Oral mucosa dry. No Gingival or Mucosal Lesions/ Ulcerations Neck: Supple, No JVD, Negative Carotid Bruits Chest wall/Lungs: Air entry diminished severely in right lung posterior half. No crepitations left 1. Dyspnea at rest. Tachypnea. Cardiovascular: A-fib RVR, Normal S1,S2, No M/G/R Abdomen: Bowel Sounds Present, Soft, Non Tender, Non-Distended : No dysuria. No renal angle tenderness. No suprapubic tenderness. Extremities: No edema, Capillary Refill Less than 3 Seconds Skin: Redness over coccyx stage I at coccyx. No skin opening/erosion as per the nursing staff. Musculoskeletal: Severe decrease in muscle mass over intervertebral and paravertebral muscle, intercostal muscles. Neurological: Cranial nerves II-XII grossly intact, DTR 2+/4. No acute focal neurological deficit. Psych/Mental Status: Flat affect Assessment & Plan Assessment/Plan (1) GI bleed: PLAN: Plan A-fib RVR, hypotension: Exact etiology unclear possible overdiuresis. Blood pressure was 51/41, heart rate 154/min, 1 L IV fluid was immediately ordered evaluate and patient transferred to ICU. Was seen 3 times in the morning and BP systolic 55. On monitor which shows A-fib heart rate in 120s. Twelve-lead EKG ordered. Digoxin ordered. Monitor electrolytes #Intestinal ileus in the setting of possible GI bleed * Is not on any blood thinners. Had CT abdomen which showed severe fecal impaction without evidence of diffuse distention with borderline dilatation of small bowel loops likely secondary to stool burden as well as progression of right lower lobe consolidation and increased size of the small right and moderate left pleural effusions with pleural nodularity * had EGD which showed Leah-[place] tear which was treated with argon plasma coagulation and erosive gastritis but 3 with no stigmata of recent bleeding and no gross lesions in the entire examined duodenum. * IV pantoprazole 40 mg twice daily. stool for occult blood was positive. * patient complaining of abdominal distension today. He is passing gas but has not had a bowel movement * stat abdominal xray done showed multiple distended elongated small bowels measuring up to 4.8cm, concerning for small bowel obstruction. * keep NPO. General surgery consulted 03/11: Patient had enema at night and had 2 bowel movements 1 last night and morning. Abdomen mildly slight distention. Bowel sounds present. Stated that passed flatus. KUB reviewed and shows multiple distended no bowel injury on the left side, suggestive of distal ileum site of obstruction. #Bilateral pleural effusions with right lower lobe consolidation * Did have this during previous admission and the pleural effusion is actually worsened. * He had thoracentesis with analysis of the pleural fluid back on 04/26/2024 which showed atypical mesothelial proliferation * Patient and his daughter tell me he did follow up with oncology and pulmonology. They were told he did not have cancer. * however, patient has lost ~ 50+ pounds within a year. CXR findings as above * had left thoracentesis with removal of 390 cc of fluid from the left pleural cavity * pulmonology on board * Repeat CTA of the chest done on account of elevated D-dimer showed right lower lobe consolidation with air bronchograms concerning for infection and layering debris within the trachea and layering fluid within the esophagus as well as large bilateral pleural effusions with compressive atelectasis, circumferential wall thickening of the esophagus concerning for esophagitis and 7 mm right middle lobe pulmonary nodule * Analysis of the left pleural fluid done showed that it was transudative in nature. * on IV Zosyn * Breathing treatments bronchodilators. Titrate oxygen to maintain saturation above 90%. * pleural fluid cytology still pending * today, patient complained of shortness of breath again. Repeat CXR done today showed right pleural effusion and pulmonary venous congestion. 02/21: Patient has chronic shortness of breath from pleural effusion. Currently hemodynamically stable for disease #Intermittent SVT * patient has had intermittent SVT with his HR going as high as the 150s, but immediately goes down to normal 70s and 80s * CT chest was negative for any evidence of PE * potassium and magnesium have been WNL * 2D echo showed EF of 55-60% with no valvular abnormalities. * patient was started on PO metoprolol 25mg bid. * heart rate is much better controlled now, and has remained in the 80s and 90s. Continue metoprolol. * His heart rate has been in the mid 90s all day today. I was going to consult cardiology, but will hold that now as his heart rate has been controlled all day today per his nurse. If HR goes up again, low threshold to consult cardiology. * #History of orthostatic hypotension: On midodrine. Midodrine dc'd per GI. #Acute on chronic anemia: * Hemoglobin is 8.2. Has been between 8 and 9 since admission. * Will monitor closely and transfuse if it drops below 7. #Hyperlipidemia: On statin #BPH: On Flomax #Depression: on escitalopram DVT prophylaxis: SCDs CODE STATUS:full code Of note, patient has prior records brought in and in the system. It shows that he had right-sided thoracentesis in April 2024 and repeat thoracentesis in 2024 at [facility]. CT chest done on 08/23/2024 showed volume loss on the right side with diffuse right pleural thickening and small areas of pleural calcification and a small loculated right pleural effusion. On 09/16/2024 he had right total [place] P with conversion to minithoracotomy with partial decub education and pleural biopsies. 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 The fluid analysis also showed lymphocytosis and numerous mature lymphocytes but no evidence of carcinoma. Total time of the visit including total time spent in counseling or coordination of care, (more than 50% of the total time, spent in obtaining medical information from nurses and other ancillary care providers ,explaining to the patient about labs, imaging, diagnosis and management of active complex medical conditions), hemodynamically stability, A-fib RVR, upgrade patient of level of care to ICU review of labs and imaging is 55 minutes. Charges/Coding Visit Charges Inpatient E&M: 26633 Subs Hosp L3
[2025-03-11 07:46] LABS: Anion Gap 18 (5-15); BUN 14 mg/dL (4-19); Calcium,Total 9.8 mg/dL (7.6-11.0); Carbon Dioxide 31.9 mmol/L (21.0-32.0); Chloride 95 mmol/L (98-108); Creatinine, Serum 0.88 mg/dL (0.70-1.20); EST Glomerular Filtration Rate 89 (>60); Estimated Creatinine Clearance 56.46 ml/min (50-250); Glucose 83 mg/dL (70-99); Potassium 2.9 mmol/L (3.3-5.1); Sodium Level 144 mmol/L (133-145)
--- NOTE | 2025-03-11 07:47 | RAD_ITS ---
EXAM: XR Abdomen, 1 View CLINICAL INDICATION: NG PLACEMENT TECHNIQUE: Frontal supine view of the abdomen/pelvis. COMPARISON: XR Abdomen dated 03/11/2025 FINDINGS: GASTROINTESTINAL TRACT: Distended small bowels, unchanged. BONES/JOINTS: Unremarkable. No acute fracture. TUBES, LINES AND DEVICES: Enteric tube is in the stomach. RAD/Abdomen Single View (Portable) IMPRESSION: Enteric tube is in the stomach. Reading Location: [id number]
--- NOTE | 2025-03-11 08:01 | NURSING ---
this nurse into room looking for nurse regarding another patient. Nurse Cortney verbalized concern regarding patient blood pressure as well as tachycardia. dr. truong text. pt placed on step down monitor. attempted to place in reverse trand. position pt voided he's sob and could not tolerate that. primary RN increasing O2. charhouse worker updated on patient. iv's started, labs obtained. dr. truong bedside. 08:18 charhouse worker notified of order to transfer to ICU. 0824 primary RN updated on bed status. 0830 charhouse worker to unit. pt transferred to icu by primary RN and charhouse worker. aware primary RN updating family.
--- NOTE | 2025-03-11 08:08 | NURSING ---
head of housekeeping updated on patient, anticipate transfer to higher level of care, dr truong coming to see patient.
[2025-03-11] MEDS: Lactated Ringers 1,000 ML 999 ML IV (08:10)
--- NOTE | 2025-03-11 08:58 | NURSING ---
Call placed to Karla per pt request. Updated Karla on current status and transfer to ICU. She states they will visit this morning.
--- NOTE | 2025-03-11 09:07 | EKG12_ITS ---
Test Reason : rhythm confirmation Blood Pressure : */* mmHG Vent. Rate : 140 BPM Atrial Rate : * BPM P-R Int : * ms QRS Dur : 78 ms QT Int : 326 ms P-R-T Axes : * 80 97 degrees QTcB Int : 497 ms Critical Test Result: High HR Atrial fibrillation with rapid ventricular response with premature ventricular or aberrantly conducted complexes Low voltage QRS Abnormal ECG When compared with ECG of 06-Mar-2025 09:31, MANUAL COMPARISON REQUIRED DATA IS UNCONFIRMED Confirmed by Andres Mcginnis ([id number]), digital editor DEMETRIUS CHAVEZ ([id number]) on 03/14/2025 8:11:00 AM Referred By: Michael Confirmed By: Andres Mcginnis
--- NOTE | 2025-03-11 09:13 | EKG12_ITS ---
Test Reason : EKG change Blood Pressure : */* mmHG Vent. Rate : 137 BPM Atrial Rate : 137 BPM P-R Int : 188 ms QRS Dur : 76 ms QT Int : 236 ms P-R-T Axes : 97 51 -66 degrees QTcB Int : 356 ms Sinus tachycardia Pulmonary disease pattern Nonspecific ST and T wave abnormality Abnormal ECG No previous ECGs available Poor tracing Confirmed by Andres Mcginnis ([id number]), film editor DEMETRIUS CHAVEZ ([id number]) on 03/14/2025 8:08:56 AM Referred By: Michael Confirmed By: Andres Mcginnis
[2025-03-11] MEDS: Digoxin 250 MCG/ML Ampul 500 MCG IV (09:40)
[2025-03-11 10:02] LABS: Magnesium 2.3 mg/dL (1.5-2.2); Phosphorus 4.3 mg/dL (2.7-4.5)
--- NOTE | 2025-03-11 10:07 | PCM.PN.TICU ---
Objective Data Objective Data Vital Signs: Vital Signs Last response Temperature 36.1 C L 03/11/25 08:25 Temperature Source Temporal 03/11/25 08:25 Pulse Rate 107 H 03/11/25 09:40 Pulse Strength Normal (2+) 03/10/25 07:44 Respiratory Rate 37 H 03/11/25 08:25 Respiratory Effort Normal, Non-Labored 03/10/25 14:49 Respiratory Depth Normal 03/10/25 14:49 Respiratory Pattern Normal 03/10/25 14:49 Blood Pressure 51/41 L 03/11/25 08:25 Blood Pressure Mean 44 03/11/25 08:25 Blood Pressure Source Monitor 03/11/25 08:25 Blood Pressure Position Semi-Fowlers 03/11/25 08:25 Blood Pressure Location Right Arm 03/11/25 08:25 Baseline BP 119/53 03/07/25 16:00 Pulse Ox 94 03/11/25 08:25 Oxygen Delivery Method Nasal Cannula 03/11/25 08:25 Oxygen Flow Rate (L/min) 4 03/11/25 08:25 Fraction of Inspired Oxygen (FIO2) 98 03/11/25 06:13 I&O: I&O Last 24 Hours 03/10/25 03/10/25 03/11/25 11:59 23:59 11:59 Intake Total 229.5 / 379.5 150 / 379.5 1120 / 1120 Output Total 1000 / 4800 3400 / 4800 850 / 850 Balance -770.5 / -4420.5 -3250 / -4420.5 270 / 270 I&O: Total Stay 03/06/25 09:07 thru 03/11/25 09:19 Intake Total 6914.25 Output Total 49255 Balance -3925.75 Current Meds Ordered / Administered: Current meds ordered / Administered Generic Name Dose Route Start Last Admin Trade Name Freq PRN Reason Stop Dose Admin Acetaminophen 650 mg 03/06/25 13:04 03/10/25 21:26 Acetaminophen 325 Mg Tablet PO 650 mg Q4H PRN Administration Fever, pain 1-10/10 Albuterol/Ipratropium 3 ml 03/06/25 13:04 Ipratropium/Albuterol Sulfate 3 Ml Ampul.Neb INHALATION Q6H PRN dyspnea/wheezing Calamine/Phenol 1 applic 03/10/25 22:30 03/11/25 00:14 Menthol/Lanolin/Calamine/Znox 113 Gm Tube TOPICAL 1 applic BID AUGUSTIN Administration Protocol Digoxin 250 mcg 03/11/25 16:13 Digoxin 250 Mcg/Ml Ampul IV 03/11/25 16:14 X1 ONE Escitalopram Oxalate 10 mg 03/07/25 10:00 03/10/25 07:57 Escitalopram Oxalate 10 Mg Tablet PO 10 mg DAILY AUGUSTIN Administration Sodium Chloride 250 mls @ 15 mls/hr 03/06/25 13:12 03/11/25 06:11 IV 0 mls/hr .[id number] PRN Infusion Saline Flush Sodium Chloride 250 mls @ 15 mls/hr 03/06/25 13:12 IV .[id number] PRN Additional IVPB Infusion Pantoprazole Sodium 40 mg/ 100 mls @ 330 mls/hr 03/06/25 22:00 03/10/25 21:45 Sodium Chloride IV Infused Q12 AUGUSTIN Infusion Piperacillin Sod/Tazobactam 50 mls @ 12.5 mls/hr 03/08/25 07:30 03/11/25 06:11 Sod 3.375 gm/ Sodium Chloride IV 12.5 mls/hr Q8 AUGUSTIN Administration Lactated Ringer's 500 mls @ 999 mls/hr 03/11/25 10:00 Lactated Ringers IV 03/11/25 10:30 .Q31M AUGUSTIN Potassium Chloride 10 meq in 100 mls @ 100 mls/hr 03/11/25 10:15 IV BOLUS 03/11/25 14:14 Q1H AUGUSTIN Metoprolol Tartrate 5 mg 03/11/25 07:37 Metoprolol Tartrate 5 Mg/5 Ml Vial IV Q4H PRN HR >120/m Protocol Morphine Sulfate 2 - 4 mg 03/06/25 13:43 03/10/25 04:42 Morphine 2 Mg/Ml Syringe IV 2 mg Q3H PRN PRN Administration Pain Score 6-10 Morphine Sulfate 2 - 4 mg 03/06/25 13:51 Morphine 4 Mg/Ml Syringe IV Q3H PRN PRN Pain Score 6-10 Nitroglycerin 0.4 mg 03/06/25 13:43 Nitroglycerin (Inpatient Use) 0.4 Mg Tab.Subl SL Q5M PRN CARDIAC/CHEST PAIN Ondansetron HCl 4 mg 03/06/25 13:43 03/06/25 23:13 Ondansetron 4 Mg/2 Ml Vial IV 4 mg Q8H PRN PRN Administration NAUSEA/VOMITING Pravastatin Sodium 40 mg 03/06/25 22:00 03/10/25 21:31 Pravastatin 40 Mg Tablet PO 40 mg QHS AUGUSTIN Administration Sodium Chloride 10 - 40 ml 03/06/25 13:12 03/10/25 21:26 0.9% Saline Lock 10 Ml Syringe IV 10 ml UD PRN Administration SALINE FLUSH Tamsulosin HCl 0.8 mg 03/06/25 17:30 03/10/25 15:31 Tamsulosin Hcl 0.4 Mg Capsule PO Not Given 1730 [facility] Medical Records Data Medical Nutrition Assessment Dietitian: Malnutrition Criteria Met Start: 03/07/25 15:56 Freq: Status: Active Protocol: Document 03/10/25 13:40 SLA (Rec: 03/10/25 13:44 SLA [id number]) Nutrition Malnutrition Evidence of Yes Malnutrition Exists Malnutrition (severe Acute Illness/Injury ): Evidenced By Suboptimal Energy Intake (Severe),Weight Loss (Severe), Physical Changes (Moderate) Intake Problem Inadequate Oral Intake Etiology related to altered GI function/ileus Signs/Symptoms as evidenced by poor po intake Status Active Problem Clinical Problem Acute Disease or Injury Related Malnutrition Etiology severe protein-calorie malnutrition in the context of acute illness related to altered GI function and inability to take adequate energy/pro Signs/Symptoms as evidenced by current NPO, BMI 17.2, unintentional weight loss ~18% body weight x 9-10 months (less than 1 year time frame), muscle wasting/fat depletion noted in clavicle area, PO meeting less than 75% estimated nutrition needs x 6 months Status Active Problem Recommendation Dietitian Recommend advance diet as tolerated to Transitional Recommendations/ with goal of liberalized regular diet. Changes Will provide ensure plus high protein tid w/ meals Lab / Micro Data 03/11/25 06:20 03/11/25 06:20 Labs: Laboratory Results - last 24 hr 03/07/25 09:24: Miscellaneous Cytology SEE PATHOLOGY REPORT 03/10/25 03:48: NT pro BNP II 806 03/10/25 19:00: Lactate Dehydrogenase 174, Total Creatine Kinase 31, Rheumatoid Factor < 10.0, DORCAS-1 Antibody TNP, Sm (De La Rosa) Antibody TNP, POKER SUPERVISOR Antibody TNP, Scl-70 Scleroderma Ab TNP, Antichromatin Antibodies TNP, Centromere B Antibody TNP 03/11/25 06:20: WBC 7.3, RBC 3.50 L, Hgb 9.2 L, Hct 30.3 L, MCV 86.6, MCH 26.3 L, MCHC 30.4 L, RDW Std Deviation 56.0 H, RDW Coeff of Wilbert 17.8 H, Plt Count 464 H, MPV 9.7, Immature Gran % (Auto) 0.300, Neut % (Auto) 87.3 H, Lymph % (Auto) 6.7 L, Wallace % (Auto) 5.3, Eos % (Auto) 0.3, Baso % (Auto) 0.1, Absolute Neuts (auto) 6.4, Absolute Lymphs (auto) 0.49 L, Nucleated RBC % 0, Sodium 144, Potassium 2.9 L, Chloride 95 L, Carbon Dioxide 31.9, Anion Gap 18 H, BUN 14, Creatinine 0.88, Estim Creat Clear Calc 56.46, Est GFR (MDRD) Non-Af 89, BUN/Creatinine Ratio 16.0, Glucose 83, Calcium 9.8, Phosphorus 4.3, Magnesium 2.3 H Imaging Radiology Impression Abdomen X-Ray 03/11/25 05:35 IMPRESSION: Similar appearance of long segment of several distended small bowel loops mostly left abdomen concerning for possibility of a distal small bowel obstruction not excluded and requires further clinical correlation. Patient may benefit from nasogastric decompression, clinically correlate. Several air-fluid levels are seen on the decubitus image without evidence of free air identified. Reading Location: [id number] Assessment and Plan . Assessment and plan: Subjective: Pt transferred to ICU this AM with Afib w/ RVR and hypotension with SBP down to 50-60s. Received digoxin and IVF bolus with improvement. Also had NGT placed this AM per surgeon recs. He remains on RA currently though mildly dyspneic. Reports mild abd pain but no N/V, CP, cough, fevers. Physical Exam: Gen - NAD, cachectic HEENT - MM dry. Sclera anicteric Resp - Diminished in bases. Mild tachypnea CV - Tachycardic, irregular rhythm. No m/g/r Abd - Soft, +mild TTP, +distention Ext - No c/c/e. Skin - No rashes? Neuro - Grossly nonfocal. Alert and answers questions appropriately I have reviewed the pertinent vital sign, laboratory, and imaging data. ASSESSMENT: # Hypotension ? concern for component of overdiuresis, significant UOP overnight. Worsening sepsis also of concern # Acute hypoxic respiratory failure # SVT/Afib w/ RVR # PNA # Ileus # Recurrent pleural effusions ? with multiple prior thoracentesis and pleural biopsy without clear etiology identified # h/o orthostatic hypotension - on midodrine previously, stopped reportedly per GI recs # Acute on chronic anemia # Depression # Severe protein calorie malnutrition PLAN: -Remains on RA, monitor breathing. Check blood gas -Giving back IVF bolus, stop diuresis. May need pressors if recurrent hypotension. Check lactate -s/p digoxin. Can try PRN cardizem pushes for recurrent RVR if remains normotensive -Cont NGT decompression, f/u additional surgeon recs. May need repeat CT A/P if continued worsening -Empiric zosyn, f/u Cx. May need to broaden if continued worsening/signs of sepsis -s/p thora, awaiting pleural fluid cytology. Repeat R sided thora pending as well given enlarging effusion -Replete K, check mag FEN/GI: NPO, NGT to suction Proph DVT/GI: SCDs, consider chemical prophylaxis if remains stable/no plan for surgical intervention Critical Care Time: 50 mins The entirety of this encounter was done via telemedicine using both audio and video. Consent was obtained. Consent was unable to be obtained for the telemedicine encounter due to the patient's mental status.
[2025-03-11] MEDS: Oxymetazoline 0.05% 1 SPRAY SPRAY.BTL 2 SPRAY NASAL (11:06)
[2025-03-11] MEDS: LACTATED RINGERS 500 ML 999 ML IV ×2 (11:15→15:58)
[2025-03-11 11:17] LABS: Lactic Acid 1.6 mmol/L (0.0-2.0)
[2025-03-11] MEDS: Pantoprazole Sodium 40 MG in 0.9% Normal Saline (100mL MB+) 100 ML 330 MG IV ×2 (11:54→21:11)
[2025-03-11] MEDS: Potassium Chloride 10mEq/100mL 10 MEQ/100 ML IV.SOLN. 100 MEQ IV BOLUS ×4 (12:31→16:30)
[2025-03-11 13:39] LABS: Blood Gas Specimen Type VEN; O2 Delivery Device Not entered; SITE Not entered; Time Given 13:36:28; VBG BASE EXCESS 11 mmol/L (-1.0-3.5); VBG Bicarbonate 33 mmol/L (22-26); VBG PO2 93 mmHg (25-40); VBG SO2 98 % (50-70); VBG TCO2 34 mmol/L (23-33); VBG pCO2 33.2 mmHg (41-51)
--- NOTE | 2025-03-11 14:14 | CASEMGMT ---
Social Work Family asked for SW to complete living will. SW met w/pt and family, it is actually a last will and testament, not a living will. They spoke w/Stephanie in [facility] earlier who said she could notarize it for them. SW called Stephanie, she states can come up to notarize this for the family. HEATH Villalobos
--- NOTE | 2025-03-11 15:05 | RAD_ITS ---
EXAM: XR Chest, 1 View CLINICAL INDICATION: PICC LINE PLACEMENT TECHNIQUE: Frontal view of the chest. COMPARISON: No relevant prior studies available. FINDINGS: LUNGS AND PLEURAL SPACES: Right basilar atelectasis or pneumonia. Right pleural effusion. No pneumothorax. HEART: Unremarkable. No cardiomegaly. MEDIASTINUM: Unremarkable. Normal mediastinal contour. BONES/JOINTS: Unremarkable. No acute fracture. TUBES, LINES AND DEVICES: Right peripherally inserted central catheter (PICC) tip in the superior vena cava. Enteric tube tip cannot be seen but is below the diaphragm. RAD/Chest 1 View (Portable) IMPRESSION: 1. Right basilar atelectasis or pneumonia. 2. Right pleural effusion. Reading Location: [id number]
[2025-03-11] MEDS: Digoxin 250 MCG/ML Ampul IV ×2 (15:58→21:41)
[2025-03-11] MEDS: Metoprolol Tartrate 5 MG/5 ML Vial 2.5 MG IV (18:43)
--- NOTE | 2025-03-11 21:39 | PCM.PN.SRG ---
Subjective Subjective Patient was seen this morning after transfer to ICU for low BP. Patient denied any significant abdominal pain. stated that he passed 2 stools along with some flatus. xrays still showing dilated SB loops consistent with ileus vs SBO Objective Data Objective Data Vital Signs: Vital Signs Temp Pulse Resp BP Pulse Ox O2 Del Method O2 Flow Rate 97.9 F 136 H 21 H 104/57 L 91 Nasal Cannula 2 03/11/25 12:00 03/11/25 20:00 03/11/25 20:00 03/11/25 20:00 03/11/25 20:00 03/11/25 20:00 03/11/25 20:00 FiO2 29 03/11/25 17:00 Oxygen Flow Rate (L/min) 2 Oxygen Delivery Method Nasal Cannula Weight: 123 lb 3.814 oz Body Mass Index (BMI) 17.2 Intake & Output: Intake and Output for Last 24 Hours 03/09/25 03/10/25 03/11/25 23:59 23:59 23:59 Intake Total 350 / 350 379.5 / 379.5 2720 / 2720 Output Total 725 / 925 4400 / 4800 1250 / 1250 Balance -375 / -575 -4020.5 / -4420.5 1470 / 1470 Medical Nutrition Assessment Dietitian: Malnutrition Criteria Met Start: 03/07/25 15:56 Freq: Status: Active Protocol: Document 03/10/25 13:40 SLA (Rec: 03/10/25 13:44 SLA [id number]) Nutrition Malnutrition Evidence of Yes Malnutrition Exists Malnutrition (severe Acute Illness/Injury ): Evidenced By Suboptimal Energy Intake (Severe),Weight Loss (Severe), Physical Changes (Moderate) Intake Problem Inadequate Oral Intake Etiology related to altered GI function/ileus Signs/Symptoms as evidenced by poor po intake Status Active Problem Clinical Problem Acute Disease or Injury Related Malnutrition Etiology severe protein-calorie malnutrition in the context of acute illness related to altered GI function and inability to take adequate energy/pro Signs/Symptoms as evidenced by current NPO, BMI 17.2, unintentional weight loss ~18% body weight x 9-10 months (less than 1 year time frame), muscle wasting/fat depletion noted in clavicle area, PO meeting less than 75% estimated nutrition needs x 6 months Status Active Problem Recommendation Dietitian Recommend advance diet as tolerated to Transitional Recommendations/ with goal of liberalized regular diet. Changes Will provide ensure plus high protein tid w/ meals Lab / Micro Data 03/11/25 06:20 03/11/25 06:20 Labs: Laboratory Results - last 24 hr 03/10/25 19:00: Lactate Dehydrogenase 174, Rheumatoid Factor < 10.0 03/11/25 06:20: WBC 7.3, RBC 3.50 L, Hgb 9.2 L, Hct 30.3 L, MCV 86.6, MCH 26.3 L, MCHC 30.4 L, RDW Std Deviation 56.0 H, RDW Coeff of Wilbert 17.8 H, Plt Count 464 H, MPV 9.7, Immature Gran % (Auto) 0.300, Neut % (Auto) 87.3 H, Lymph % (Auto) 6.7 L, [place] % (Auto) 5.3, Eos % (Auto) 0.3, Baso % (Auto) 0.1, Absolute Neuts (auto) 6.4, Absolute Lymphs (auto) 0.49 L, Nucleated RBC % 0, Sodium 144, Potassium 2.9 L, Chloride 95 L, Carbon Dioxide 31.9, Anion Gap 18 H, BUN 14, Creatinine 0.88, Estim Creat Clear Calc 56.46, Est GFR (MDRD) Non-Af 89, BUN/Creatinine Ratio 16.0, Glucose 83, Calcium 9.8, Phosphorus 4.3, Magnesium 2.3 H 03/11/25 10:30: Lactic Acid 1.6 Micro: Microbiology 03/06/25 09:24 Stool Stool Occult Blood (DESHAUN) - Final Occult Blood Positive ABG Data ABG results: ABG 03/11/25 13:34 Specimen Type KEVIN Sample Site Not entered O2 % 4.0 VBG pH 7.60 H* VBG pO2 93 H VBG HCO3 33 H VBG Total CO2 34 H VBG O2 Sat (Calc) 98 H VBG Base Excess 11 H POC Mix VBG pCO2 Pt Tmp 33.2 L O2 Delivery Device Not entered Crit Call To/Read Back Yes Blood Gas Notified Whom DARVIN Blood Gas Notified Time 13:36:28 Radiography Diagnostic Testing: Radiology Impression Abdomen X-Ray 03/11/25 05:35 IMPRESSION: Similar appearance of long segment of several distended small bowel loops mostly left abdomen concerning for possibility of a distal small bowel obstruction not excluded and requires further clinical correlation. Patient may benefit from nasogastric decompression, clinically correlate. Several air-fluid levels are seen on the decubitus image without evidence of free air identified. Reading Location: [facility] KUB X-Ray 03/11/25 07:47 IMPRESSION: Enteric tube is in the stomach. Reading Location: [facility] Chest X-Ray 03/11/25 15:05 IMPRESSION: 1. Right basilar atelectasis or pneumonia. 2. Right pleural effusion. Reading Location: [facility] Physical Exam Narrative AAO x3 abdomen distended but soft and nontender Assessment & Plan Assessment/Plan (1) GI bleed: (2) SBO (small bowel obstruction): PLAN: Plan 74 yo M with small bowel obstruction vs ileus -- favor ileus / constipation as he had large amount of stool on CT 5 days ago and did not have a BM until today NG placed cont med management repeat KUB in AM cont to stimulate BM's cont to follow
[2025-03-11] MEDS: 0.9% Saline Lock 10 ML Syringe IV (21:42)
[2025-03-12] VITALS (27 sets, daily range): BP systolic 91–124; BP diastolic 40–64; PULSE 100–128; RESP 14–32; TEMP 36.5–36.9; O2SAT 90–99; BMI 16.2
[2025-03-12] MEDS: 0.9% Saline Lock 10 ML Syringe IV (03:24)
[2025-03-12] MEDS: Ondansetron 4 MG/2 ML Vial IV (03:27)
[2025-03-12 04:11] LABS: Absolute Lymphocyte Count 0.57 X10^3/uL (0.83-4.51); Absolute Neutrophil Count 10.2 X10^3/uL (2.0-7.7); Basophil# 0.01 X10^3/uL; Basophil% 0.1 % (0-1); Hematocrit 28.8 % (40-54); Hemoglobin 8.8 g/dL (13.0-16.5); Lymphocyte # 0.57 X10^3/ul (0.83-4.51); Mean Corp Hgb Conc 30.6 g/dL (32-36); Mean Corpuscular Hgb 26.7 pg (27.0-32.0); Mean Corpuscular Volume 87.3 fL (80-94); Mean Platelet Vol. 9.9 fl (6.2-12.0); Monocyte# 0.52 X10^3/uL; Monocyte% 4.6 % (0-10); NRBC Flagged by Analyzer 0 % (0-5); Neutrophil % 89.9 % (47-70); POSITIVE DIFFERENTIAL YES; Platelet Count 531 K/mm3 (150-450); RBC Distribution Width SD 57.3 fl (35.1-43.9); White Blood Count 11.4 K/mm3 (4.4-11.0)
[2025-03-12 04:40] LABS: AST(SGOT) 28 U/L (<=37); Alanine Aminotransfer ALT/SGPT 6 U/L (<=46); Albumin, Serum 2.6 g/dL (3.4-4.8); Alkaline Phosphatase 72 U/L (40-129); Anion Gap 21 (5-15); BUN 17 mg/dL (4-19); Bilirubin, Direct 0.25 mg/dL (0.00-0.30); Calcium,Total 9.5 mg/dL (7.6-11.0); Carbon Dioxide 26.9 mmol/L (21.0-32.0); Chloride 97 mmol/L (98-108); Creatinine, Serum 0.85 mg/dL (0.70-1.20); EST Glomerular Filtration Rate 90 (>60); Estimated Creatinine Clearance 58.46 ml/min (50-250); Globulin 3.1 g/dL (2.2-4.2); Glucose 109 mg/dL (70-99); Potassium 3.4 mmol/L (3.3-5.1); Protein, Total 5.6 g/dL (5.9-8.4); Sodium Level 145 mmol/L (133-145); Total Bilirubin 0.51 mg/dL (0.00-1.30)
[2025-03-12] MEDS: Piperacil/Tazobactam 3.375 GM in 0.9% Normal Saline (50mL MB+) 50 ML IV ×3 (05:58→22:14)
--- NOTE | 2025-03-12 08:10 | PCM.PN.HOSP ---
Reason for Visit Reason for Visit: Diagnoses Unspecified intestinal obstruction, unspecified as to partial versus complete obstruction (03/06/25) Gastrointestinal hemorrhage, unspecified (03/06/25) Unspecified abnormal finding in specimens from other organs, systems and tissues (03/06/25) Objective Data Objective Data Vital Signs: Vital Signs Temp Pulse Resp BP Pulse Ox O2 Del Method O2 Flow Rate 98.1 F 119 H 30 H 99/61 99 Nasal Cannula 2 03/12/25 00:00 03/12/25 06:00 03/12/25 06:00 03/12/25 06:00 03/12/25 06:00 03/12/25 06:00 03/12/25 06:00 FiO2 29 03/11/25 17:00 Oxygen Flow Rate (L/min) 2 Oxygen Delivery Method Nasal Cannula Weight: 116 lb 9.992 oz Body Mass Index (BMI) 16.2 Intake & Output: Intake and Output for Last 24 Hours 03/10/25 03/11/25 03/12/25 23:59 23:59 23:59 Intake Total 379.5 / 379.5 2850 / 2880 110 / 110 Output Total 4400 / 4800 1250 / 1400 400 / 400 Balance -4020.5 / -4420.5 1600 / 1480 -290 / -290 Medical Nutrition Assessment Dietitian: Malnutrition Criteria Met Start: 03/07/25 15:56 Freq: Status: Active Protocol: Document 03/10/25 13:40 SLA (Rec: 03/10/25 13:44 SLA [id number]) Nutrition Malnutrition Evidence of Yes Malnutrition Exists Malnutrition (severe Acute Illness/Injury ): Evidenced By Suboptimal Energy Intake (Severe),Weight Loss (Severe), Physical Changes (Moderate) Intake Problem Inadequate Oral Intake Etiology related to altered GI function/ileus Signs/Symptoms as evidenced by poor po intake Status Active Problem Clinical Problem Acute Disease or Injury Related Malnutrition Etiology severe protein-calorie malnutrition in the context of acute illness related to altered GI function and inability to take adequate energy/pro Signs/Symptoms as evidenced by current NPO, BMI 17.2, unintentional weight loss ~18% body weight x 9-10 months (less than 1 year time frame), muscle wasting/fat depletion noted in clavicle area, PO meeting less than 75% estimated nutrition needs x 6 months Status Active Problem Recommendation Dietitian Recommend advance diet as tolerated to Transitional Recommendations/ with goal of liberalized regular diet. Changes Will provide ensure plus high protein tid w/ meals Lab / Micro Data 03/12/25 03:20 03/12/25 03:20 Labs: Laboratory Results - last 24 hr 03/11/25 06:20: Phosphorus 4.3, Magnesium 2.3 H 03/11/25 10:30: Lactic Acid 1.6 03/12/25 03:20: WBC 11.4 H, RBC 3.30 L, Hgb 8.8 L, Hct 28.8 L, MCV 87.3, MCH 26.7 L, MCHC 30.6 L, RDW Std Deviation 57.3 H, RDW Coeff of Wilbert 18.0 H, Plt Count 531 H, MPV 9.9, Immature Gran % (Auto) 0.400, Neut % (Auto) 89.9 H, Lymph % (Auto) 5.0 L, [place] % (Auto) 4.6, Eos % (Auto) 0.0, Baso % (Auto) 0.1, Absolute Neuts (auto) 10.2 H, Absolute Lymphs (auto) 0.57 L, Nucleated RBC % 0, Sodium 145, Potassium 3.4, Chloride 97 L, Carbon Dioxide 26.9, Anion Gap 21 H, BUN 17, Creatinine 0.85, Estim Creat Clear Calc 58.46, Est GFR (MDRD) Non-Af 90, BUN/Creatinine Ratio 20.0, Glucose 109 H, Calcium 9.5, Total Bilirubin 0.51, Direct Bilirubin 0.25, AST 28, ALT 6, Alkaline Phosphatase 72, Total Protein 5.6 L, Albumin 2.6 L, Globulin 3.1 Micro: Microbiology 03/06/25 09:24 Stool Stool Occult Blood (DESHAUN) - Final Occult Blood Positive ABG Data ABG results: ABG 03/11/25 13:34 Specimen Type KEVIN Sample Site Not entered O2 % 4.0 VBG pH 7.60 H* VBG pO2 93 H VBG HCO3 33 H VBG Total CO2 34 H VBG O2 Sat (Calc) 98 H VBG Base Excess 11 H POC Mix VBG pCO2 Pt Tmp 33.2 L O2 Delivery Device Not entered Crit Call To/Read Back Yes Blood Gas Notified Whom DARVIN Blood Gas Notified Time 13:36:28 Radiography Diagnostic Testing: Radiology Impression KUB X-Ray 03/11/25 07:47 IMPRESSION: Enteric tube is in the stomach. Reading Location: [facility] Chest X-Ray 03/11/25 15:05 IMPRESSION: 1. Right basilar atelectasis or pneumonia. 2. Right pleural effusion. Reading Location: [facility] Physical Exam Narrative seen and examined Patient converted to sinus tachycardia from A-fib RVR.. Twelve-lead EKG was done which shows sinus tachycardia at 137 bpm, pulmonary disease pattern. Heart rate is better. BP pattern is good. Patient did not require pressor. Has 2 port PICC line on right arm on 03/11. Shortness of breath and dyspnea better Physical exam General: Alert, Oriented x3, Cooperative, short of breath. BMI 17.2 kg/m?. Severe chronic malnutrition. HEENT: Atraumatic, PERRLA, EOMI, Normocephalic. Oral: Oral mucosa dry. No Gingival or Mucosal Lesions/ Ulcerations Neck: Supple, No JVD, Negative Carotid Bruits Chest wall/Lungs: Air entry diminished severely in right lung posterior half. No crepitations left 1. Dyspnea at rest. Tachypnea. Cardiovascular: Sinus tachycardia, Normal S1,S2, No M/G/R Abdomen: Bowel Sounds Present, Soft, Non Tender, Non-Distended : No dysuria. No renal angle tenderness. No suprapubic tenderness. Extremities: Right arm PICC line. No edema, Capillary Refill Less than 3 Seconds Skin: Redness over coccyx stage I at coccyx. No skin opening/erosion as per the nursing staff. Musculoskeletal: Severe decrease in muscle mass over intervertebral and paravertebral muscle, intercostal muscles. Muscle strength 4/5 at knees and hip joints Neurological: Cranial nerves II-XII grossly intact, DTR 2+/4. No acute focal neurological deficit. Psych/Mental Status: Flat affect Assessment & Plan Assessment/Plan (1) GI bleed: PLAN: Plan A-fib RVR with hold for SBP less than 130 mmHg with history of intermittent SVT, current sinus tachycardia: Exact etiology unclear possible due to pulmonary disease. Blood pressure was 51/41, heart rate 154/min, 1 L IV fluid was immediately ordered evaluate and patient transferred to ICU. Was seen 3 times in the morning and BP systolic 55. On monitor which shows A-fib heart rate in 120s. Twelve-lead EKG ordered. Digoxin ordered. Monitor electrolytes 03/12: Patient converted to sinus tachycardia yesterday. Twelve-lead EKG shows sinus tachycardia at 137 BPM. I think, tachycardia is mainly driven by pulmonary disease and EKG supports pulmonary disease pattern. [employer] consulted CT chest was negative for any evidence of PE potassium and magnesium have been WNL #Intestinal ileus in the setting of possible GI bleed Is not on any blood thinners. Had CT abdomen which showed severe fecal impaction without evidence of diffuse distention with borderline dilatation of small bowel loops likely secondary to stool burden as well as progression of right lower lobe consolidation and increased size of the small right and moderate left pleural effusions with pleural nodularity had EGD which showed [place] tear which was treated with argon plasma coagulation and erosive gastritis but 3 with no stigmata of recent bleeding and no gross lesions in the entire examined duodenum. IV pantoprazole 40 mg twice daily. stool for occult blood was positive. patient complaining of abdominal distension today. He is passing gas but has not had a bowel movement stat abdominal xray done showed multiple distended elongated small bowels measuring up to 4.8cm, concerning for small bowel obstruction. keep NPO. General surgery consulted 03/11: Patient had enema at night and had 2 bowel movements 1 last night and morning. Abdomen mildly slight distention. Bowel sounds present. Stated that passed flatus. KUB reviewed and shows multiple distended no bowel injury on the left side, suggestive of distal ileum site of obstruction. 03/12: Surgery note reviewed. Small bowel obstruction versus ileus, favor ileus with constipation. Large amount of fecal matter on imaging. NG was placed. Patient was NG suction bilious fluid. KUB on 03/11 shows distended small bowel unchanged. 8 shows enteric tube in the stomach. #Bilateral pleural effusions with right lower lobe consolidation Did have this during previous admission and the pleural effusion is actually worsened. He had thoracentesis with analysis of the pleural fluid back on 04/26/2024 which showed atypical mesothelial proliferation Patient and his daughter tell me he did follow up with oncology and pulmonology. They were told he did not have cancer. however, patient has lost ~ 50+ pounds within a year. CXR findings as above had left thoracentesis with removal of 390 cc of fluid from the left pleural cavity pulmonology on board Repeat CTA of the chest done on account of elevated D-dimer showed right lower lobe consolidation with air bronchograms concerning for infection and layering debris within the trachea and layering fluid within the esophagus as well as large bilateral pleural effusions with compressive atelectasis, circumferential wall thickening of the esophagus concerning for esophagitis and 7 mm right middle lobe pulmonary nodule Analysis of the left pleural fluid done showed that it was transudative in nature. on IV Zosyn Breathing treatments bronchodilators. Titrate oxygen to maintain saturation above 90%. pleural fluid cytology still pending today, patient complained of shortness of breath again. Repeat CXR done today showed right pleural effusion and pulmonary venous congestion. 03/11: Patient has chronic shortness of breath from pleural effusion. Currently hemodynamically stable for disease 03/12: Plan for ultrasound-guided thoracocentesis tomorrow. #History of orthostatic hypotension: On midodrine. Midodrine dc'd per GI. #Acute on chronic anemia: Hemoglobin is 8.2. Has been between 8 and 9 since admission. Will monitor closely and transfuse if it drops below 7. #Hyperlipidemia: On statin #BPH: On Flomax #Depression: on escitalopram DVT prophylaxis: SCDs CODE STATUS:full code Of note, patient has prior records brought in and in the system. It shows that he had right-sided thoracentesis in April 2024 and repeat thoracentesis in [address] [facility]. CT chest done on 08/23/2024 showed volume loss on the right side with diffuse right pleural thickening and small areas of pleural calcification and a small loculated right pleural effusion. On 09/16/2024 he had right total [place] P with conversion to minithoracotomy with partial decub education and pleural biopsies. 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 The fluid analysis also showed lymphocytosis and numerous mature lymphocytes but no evidence of carcinoma. Total time of the visit including total time spent in counseling or coordination of care, (more than 50% of the total time, spent in obtaining medical information from nurses and other ancillary care providers ,explaining to the patient about labs, imaging, diagnosis and management of active complex medical conditions), hemodynamically stability, A-fib RVR, upgrade patient of level of care to ICU review of labs and imaging is 55 minutes. Charges/Coding Visit Charges Inpatient E&M: 03505 Subs Hosp L3
--- NOTE | 2025-03-12 08:23 | PCM.PN.TICU ---
Objective Data Objective Data Vital Signs: Vital Signs Last response Temperature 36.7 C 03/12/25 00:00 Temperature Source Oral 03/12/25 00:00 Pulse Rate 119 H 03/12/25 06:00 Pulse Strength Normal (2+) 03/11/25 21:59 Respiratory Rate 30 H 03/12/25 06:00 Respiratory Effort Normal, Non-Labored 03/12/25 03:42 Respiratory Depth Normal 03/12/25 03:42 Respiratory Pattern Tachypnea 03/12/25 03:42 Blood Pressure 99/61 03/12/25 06:00 Blood Pressure Mean 73 03/12/25 06:00 Blood Pressure Source Monitor 03/12/25 06:00 Blood Pressure Position Semi-Fowlers 03/12/25 06:00 Blood Pressure Location Left Arm 03/12/25 06:00 Baseline BP 119/53 03/07/25 16:00 Pulse Ox 99 03/12/25 06:00 Oxygen Delivery Method Nasal Cannula 03/12/25 06:00 Oxygen Flow Rate (L/min) 2 03/12/25 06:00 Fraction of Inspired Oxygen (FIO2) 29 03/11/25 17:00 I&O: I&O Last 24 Hours 03/11/25 03/11/25 03/12/25 11:59 23:59 11:59 Intake Total 1670 / 2880 1180 / 2880 110 / 110 Output Total 1100 / 1400 150 / 1400 400 / 400 Balance 570 / 1480 1030 / 1480 -290 / -290 I&O: Total Stay 03/06/25 09:07 thru 03/12/25 06:01 Intake Total 8754.25 Output Total 74069 Balance -2885.75 Current Meds Ordered / Administered: Current meds ordered / Administered Generic Name Dose Route Start Last Admin Trade Name Freq PRN Reason Stop Dose Admin Acetaminophen 650 mg 03/06/25 13:04 03/10/25 21:26 Acetaminophen 325 Mg Tablet PO 650 mg Q4H PRN Administration Fever, pain 1-10/10 Albuterol/Ipratropium 3 ml 03/06/25 13:04 Ipratropium/Albuterol Sulfate 3 Ml Ampul.Neb INHALATION Q6H PRN dyspnea/wheezing Calamine/Phenol 1 applic 03/10/25 22:30 03/11/25 21:10 Menthol/Lanolin/Calamine/Znox 113 Gm Tube TOPICAL 1 applic BID AUGUSTIN Administration Protocol Diltiazem HCl 10 mg 03/11/25 11:53 Diltiazem 25 Mg/5 Ml Vial IV BOLUS Q4H PRN Tachycardia Escitalopram Oxalate 10 mg 03/07/25 10:00 03/11/25 11:07 Escitalopram Oxalate 10 Mg Tablet PO Not Given DAILY AUGUSTIN Sodium Chloride 250 mls @ 15 mls/hr 03/06/25 13:12 03/11/25 06:11 IV 0 mls/hr .[id number] PRN Infusion Saline Flush Sodium Chloride 250 mls @ 15 mls/hr 03/06/25 13:12 IV .[id number] PRN Additional IVPB Infusion Pantoprazole Sodium 40 mg/ 100 mls @ 330 mls/hr 03/06/25 22:00 03/11/25 21:30 Sodium Chloride IV Infused Q12 AUGUSTIN Infusion Piperacillin Sod/Tazobactam 50 mls @ 12.5 mls/hr 03/08/25 07:30 03/12/25 05:58 Sod 3.375 gm/ Sodium Chloride IV 12.5 mls/hr Q8 AUGUSTIN Administration Metoprolol Tartrate 5 mg 03/11/25 17:53 Metoprolol Tartrate 5 Mg/5 Ml Vial IV Q6 PRN Heart Rate >130 Protocol Morphine Sulfate 2 - 4 mg 03/06/25 13:43 03/10/25 04:42 Morphine 2 Mg/Ml Syringe IV 2 mg Q3H PRN PRN Administration Pain Score 6-10 Morphine Sulfate 2 - 4 mg 03/06/25 13:51 Morphine 4 Mg/Ml Syringe IV Q3H PRN PRN Pain Score 6-10 Nitroglycerin 0.4 mg 03/06/25 13:43 Nitroglycerin (Inpatient Use) 0.4 Mg Tab.Subl SL Q5M PRN CARDIAC/CHEST PAIN Ondansetron HCl 4 mg 03/06/25 13:43 03/12/25 03:27 Ondansetron 4 Mg/2 Ml Vial IV 4 mg Q8H PRN PRN Administration NAUSEA/VOMITING Pravastatin Sodium 40 mg 03/06/25 22:00 03/11/25 21:10 Pravastatin 40 Mg Tablet PO Not Given QHS [facility] Sodium Chloride 10 - 40 ml 03/06/25 13:12 03/12/25 03:24 0.9% Saline Lock 10 Ml Syringe IV 20 ml UD PRN Administration SALINE FLUSH Tamsulosin HCl 0.8 mg 03/06/25 17:30 03/11/25 16:32 Tamsulosin Hcl 0.4 Mg Capsule PO Not Given 0680 [facility] Medical Records Data Medical Nutrition Assessment Dietitian: Malnutrition Criteria Met Start: 03/07/25 15:56 Freq: Status: Active Protocol: Document 03/10/25 13:40 SLA (Rec: 03/10/25 13:44 SLA [id number]) Nutrition Malnutrition Evidence of Yes Malnutrition Exists Malnutrition (severe Acute Illness/Injury ): Evidenced By Suboptimal Energy Intake (Severe),Weight Loss (Severe), Physical Changes (Moderate) Intake Problem Inadequate Oral Intake Etiology related to altered GI function/ileus Signs/Symptoms as evidenced by poor po intake Status Active Problem Clinical Problem Acute Disease or Injury Related Malnutrition Etiology severe protein-calorie malnutrition in the context of acute illness related to altered GI function and inability to take adequate energy/pro Signs/Symptoms as evidenced by current NPO, BMI 17.2, unintentional weight loss ~18% body weight x 9-10 months (less than 1 year time frame), muscle wasting/fat depletion noted in clavicle area, PO meeting less than 75% estimated nutrition needs x 6 months Status Active Problem Recommendation Dietitian Recommend advance diet as tolerated to Transitional Recommendations/ with goal of liberalized regular diet. Changes Will provide ensure plus high protein tid w/ meals Lab / Micro Data 03/12/25 03:20 03/12/25 03:20 Labs: Laboratory Results - last 24 hr 03/11/25 06:20: Phosphorus 4.3, Magnesium 2.3 H 03/11/25 10:30: Lactic Acid 1.6 03/12/25 03:20: WBC 11.4 H, RBC 3.30 L, Hgb 8.8 L, Hct 28.8 L, MCV 87.3, MCH 26.7 L, MCHC 30.6 L, RDW Std Deviation 57.3 H, RDW Coeff of Wilbert 18.0 H, Plt Count 531 H, MPV 9.9, Immature Gran % (Auto) 0.400, Neut % (Auto) 89.9 H, Lymph % (Auto) 5.0 L, [place] % (Auto) 4.6, Eos % (Auto) 0.0, Baso % (Auto) 0.1, Absolute Neuts (auto) 10.2 H, Absolute Lymphs (auto) 0.57 L, Nucleated RBC % 0, Sodium 145, Potassium 3.4, Chloride 97 L, Carbon Dioxide 26.9, Anion Gap 21 H, BUN 17, Creatinine 0.85, Estim Creat Clear Calc 58.46, Est GFR (MDRD) Non-Af 90, BUN/Creatinine Ratio 20.0, Glucose 109 H, Calcium 9.5, Total Bilirubin 0.51, Direct Bilirubin 0.25, AST 28, ALT 6, Alkaline Phosphatase 72, Total Protein 5.6 L, Albumin 2.6 L, Globulin 3.1 ABG Data ABG results: ABG 03/11/25 13:34 Specimen Type KEVIN Sample Site Not entered O2 % 4.0 VBG pH 7.60 H* VBG pO2 93 H VBG HCO3 33 H VBG Total CO2 34 H VBG O2 Sat (Calc) 98 H VBG Base Excess 11 H POC Mix VBG pCO2 Pt Tmp 33.2 L O2 Delivery Device Not entered Crit Call To/Read Back Yes Blood Gas Notified Whom DARVIN Blood Gas Notified Time 13:36:28 Imaging Radiology Impression KUB X-Ray 03/11/25 07:47 IMPRESSION: Enteric tube is in the stomach. Reading Location: [facility] Chest X-Ray 03/11/25 15:05 IMPRESSION: 1. Right basilar atelectasis or pneumonia. 2. Right pleural effusion. Reading Location: [facility] Assessment and Plan . Assessment and plan: Subjective: No acute events o/n. Had 1 episode of vomiting but none this AM. Denies dyspnea, CP/abd pain this AM Physical Exam: Gen - NAD, cachectic HEENT - MM dry. Sclera anicteric Resp - Diminished in bases. Mild tachypnea CV - Tachycardic, irregular rhythm. No m/g/r Abd - Soft, +mild TTP, +distention Ext - No c/c/e. Skin - No rashes? Neuro - Grossly nonfocal. Alert and answers questions appropriately I have reviewed the pertinent vital sign, laboratory, and imaging data. ASSESSMENT: # Hypotension ? concern for component of overdiuresis, significant UOP overnight. Worsening sepsis also of concern # Acute hypoxic respiratory failure # SVT/Afib w/ RVR # PNA # COPD # Ileus # Recurrent pleural effusions ? with multiple prior thoracentesis and pleural biopsy without clear etiology identified # h/o orthostatic hypotension - on midodrine previously, stopped reportedly per GI recs # Acute on chronic anemia # Depression # Severe protein calorie malnutrition PLAN: -On 2L NC, wean to keep sats > 90%. Attempted HHFNC briefly for increased WOB but he did not tolerate well; currently breathing more comfortably -s/p IVF boluses yesterday. Start gentle maintenance IVF for now given NPO and NGT drainage in place -s/p digoxin. Can try PRN cardizem pushes for recurrent RVR if remains normotensive -Cont NGT decompression, f/u additional surgeon recs. Repeat KUB pending. May need repeat CT A/P if continued worsening -Empiric zosyn, f/u Cx. May need to broaden if continued worsening/signs of sepsis -s/p thora, awaiting pleural fluid cytology. Repeat R sided thora pending as well given enlarging effusion -Replete electrolytes PRN FEN/GI: NPO, NGT to suction Proph DVT/GI: SCDs, consider chemical prophylaxis if remains stable/no plan for surgical intervention The entirety of this encounter was done via telemedicine using both audio and video. Consent was obtained.
[2025-03-12] MEDS: Potassium Chloride 10mEq/100mL 10 MEQ/100 ML IV.SOLN. 100 MEQ IV BOLUS ×2 (08:57→10:33)
--- NOTE | 2025-03-12 09:37 | RAD_ITS ---
PROCEDURE: ABD DECUB AND/OR ERECT(PORTABLE 03/12/2025 REASON FOR EXAM: SBO TECHNIQUE: Single view abdomen. COMPARISON: Abdominal radiographs 1 day prior. FINDINGS: Support devices: Gastric tube with side hole overlying the expected level of the diaphragm, and tip overlying the body of the stomach. Stable aorto bi-iliac graft. Bowel gas: Unchanged dilation of the small bowel with air-fluid levels. Bones: There are degenerative changes of the spine. RAD/Abd Decub and/or Erect(Portabl IMPRESSION: Unchanged dilation of the small bowel loops. Reading Location: [id number]
[2025-03-12] MEDS: Pantoprazole Sodium 40 MG in 0.9% Normal Saline (100mL MB+) 100 ML 330 MG IV ×2 (10:32→22:15)
[2025-03-12] MEDS: Menthol/Lanolin/Calamine/Znox 113 GM Tube 1 APPLIC TOPICAL ×2 (10:33→22:14)
--- NOTE | 2025-03-12 13:14 | CON.PCM.CA_ITS ---
Assessment & Plan Assessment/Plan (1) SBO (small bowel obstruction): (2) GI bleed: (3) Severe protein-calorie malnutrition: (4) History of urinary retention: (5) Orthostatic hypotension: (6) COPD (chronic obstructive pulmonary disease): QUALIFIERS: COPD type: unspecified COPD Qualified Code(s): J44.9 - Chronic obstructive pulmonary disease, unspecified (7) Essential (primary) hypertension: (8) S/P chest tube placement: (9) Atrial fibrillation with RVR: PLAN: 74-year-old patient with multiple medical comorbidities Had longstanding history of COPD This admission patient has A-fib with RVR and converted to sinus rhythm As he was very sick with multiple medical comorbidities he was transferred from progressive care unit to ICU I saw the patient in ICU and evaluated the patient along with the nursing staff. Patient has bilateral pleural effusion with right lower lobe consolidation underwent thoracocentesis. As well patient has GI bleed underwent EGD evaluation which showed Spears with 2-year which was treated with argon plasma coagulation he had also erosive gastritis. Has been on IV pantoprazole. From cardiac standpoint there was no reported prior cardiac history. Cardiac care plan recommendations; Echocardiographic evaluation in this admission showed LV function is preserved with ejection fraction in the range of 55 to 60%. No significant valvular abnormality and no significant change in the echocardiogram from previous evaluation. Review of the telemetry in the intensive care unit revealed normal sinus with sinus tachycardia. Would recommend a low-dose beta-domo as tolerated possible metoprolol tartrate 12.5 g twice daily if tolerated by the blood pressure. Patient is a high risk for GI bleed and not a candidate for long-term anticoagulation However he can be evaluated as an outpatient once he is stable for Watchman as his risk of stroke Based on [id number] score more than 4 Patient remains in sinus rhythm no further cardiac follow-up will be required continue current treatment. Once stable to follow-up with the cardiac team as an outpatient for continuation of cardiac care and for management of the paroxysmal A-fib. HPI Consult Data Date of Consult: 03/12/25 HPI Narrative Reason for Consultation: A-fib/RVR converted to sinus rhythm/GI bleed. HPI Narrative: BUZZ PUGH, is a 74 M who presents [facility] Medical History (Updated 03/12/25 @ 13:[address] Shaquille Conteh MD) SBO (small bowel obstruction) Syncope Abnormal pleural fluid Kidney stones Former smoker On home oxygen therapy Anxiety and depression Chronic hypoxic respiratory failure COPD (chronic obstructive pulmonary disease) Former tobacco use Pneumothorax on right Pleural effusion on right Elevated blood pressure reading in office without diagnosis of hypertension (~2014) GERD (gastroesophageal reflux disease) Essential (primary) hypertension Hyperlipidemia Abdominal aortic aneurysm (AAA) Home Medications ?Medication ?Instructions ?Recorded ?Last Taken ?Type pravastatin 40 mg tablet 40 mg PO QHS high cholestero l 01/16/18 02/22/25 History aspirin 81 mg tablet,delayed 81 mg PO DAILY heart heal th 08/17/18 02/22/25 History release (Adult Low Dose Aspirin) escitalopram oxalate 10 mg tablet 10 mg PO DAILY depre ssion 02/23/25 02/22/25 History food supplemt, lactose-reduced 120 ml PO 4X/DAY supple ment #0 mL 02/27/25 Unknown Rx 0.08 gram-1.5 kcal/mL oral liquid (Ensure Plus High Protein) midodrine 5 mg tablet 10 mg (2 x 5 mg) PO TIDCM bl ood 02/27/25 Unknown Rx pressure #0 tabs acetaminophen 325 mg tablet 650 mg PO Q4H PRN Fever, p ain 03/06/25 Unknown History 1-07/21 albuterol sulfate 2.5 mg/3 mL 2.5 mg inhalation Q2H IN N Dyspnea, 03/06/25 Unknown History (0.083 %) solution for nebulization wheezing ipratropium 0.5 mg-albuterol 3 mg 3 ml inhalation Q6H PRN 03/06/25 Unknown History (2.5 mg base)/3 mL nebulization dyspnea/wheezing soln tamsulosin 0.4 mg capsule 0.8 mg PO 1730 prostate 02/10 04/05 Unknown History Allergy/AdvReac Type Severity Reaction Status Date / Time No Known Allergies Allergy Verified 03/06/25 09:08 Family History Father Heart disease Hypertension Myocardial infarction TAA Sister Hypertension Mother Hypertension Surgical History S/P AAA repair History of placement of chest tube History of ear surgery History of inguinal hernia repair Social History household members: none Smoking Status: Former smoker how long ago did patient quit smoking: Quit 08/26/2011. alcohol intake: never substance use type: does not use Risk Stratification Risk Stratification Applicable: No Objective Data Vital Signs: Vital Signs Temp Pulse Resp BP Pulse Ox O2 Del Method O2 Flow Rate 98.1 F 111 H 32 H 110/60 98 Nasal Cannula 2 03/12/25 08:00 03/12/25 08:00 03/12/25 08:00 03/12/25 08:00 03/12/25 08:00 03/12/25 08:00 03/12/25 08:00 FiO2 29 03/11/25 17:00 Oxygen Flow Rate (L/min) 2 Oxygen Delivery Method Nasal Cannula Weight: 116 lb 9.992 oz Body Mass Index (BMI) 16.2 Intake & Output: Intake and Output for Last 24 Hours 03/10/25 03/11/25 03/12/25 23:59 23:59 23:59 Intake Total 379.5 / 379.5 2850 / 2880 460 / 460 Output Total 4400 / 4800 1250 / 1400 400 / 400 Balance -4020.5 / -4420.5 1600 / 1480 60 / 60 Lab / Micro Data 03/12/25 03:20 03/12/25 03:20 Labs: Laboratory Results - last 24 hr 03/12/25 03:20: WBC 11.4 H, RBC 3.30 L, Hgb 8.8 L, Hct 28.8 L, MCV 87.3, MCH 26.7 L, MCHC 30.6 L, RDW Std Deviation 57.3 H, RDW Coeff of Wilbert 18.0 H, Plt Count 531 H, MPV 9.9, Immature Gran % (Auto) 0.400, Neut % (Auto) 89.9 H, Lymph % (Auto) 5.0 L, [place] % (Auto) 4.6, Eos % (Auto) 0.0, Baso % (Auto) 0.1, Absolute Neuts (auto) 10.2 H, Absolute Lymphs (auto) 0.57 L, Nucleated RBC % 0, Sodium 145, Potassium 3.4, Chloride 97 L, Carbon Dioxide 26.9, Anion Gap 21 H, BUN 17, Creatinine 0.85, Estim Creat Clear Calc 58.46, Est GFR (MDRD) Non-Af 90, BUN/Creatinine Ratio 20.0, Glucose 109 H, Calcium 9.5, Total Bilirubin 0.51, Direct Bilirubin 0.25, AST 28, ALT 6, Alkaline Phosphatase 72, Total Protein 5.6 L, Albumin 2.6 L, Globulin 3.1 ABG Data ABG results: ABG 03/11/25 13:34 Specimen Type KEVIN Sample Site Not entered O2 % 4.0 VBG pH 7.60 H* VBG pO2 93 H VBG HCO3 33 H VBG Total CO2 34 H VBG O2 Sat (Calc) 98 H VBG Base Excess 11 H POC Mix VBG pCO2 Pt Tmp 33.2 L O2 Delivery Device Not entered Crit Call To/Read Back Yes Blood Gas Notified Whom DARVIN Blood Gas Notified Time 13:36:28 Cardiology Labs/Tests 03/11/25 13:34: VBG pH 7.60 H*, VBG pO2 93 H, VBG HCO3 33 H, VBG O2 Sat (Calc) 98 H, VBG Base Excess 11 H 03/12/25 03:20: WBC 11.4 H, RBC 3.30 L, Hgb 8.8 L, Hct 28.8 L, MCV 87.3, MCH 26.7 L, MCHC 30.6 L, Plt Count 531 H, MPV 9.9, Immature Gran % (Auto) 0.400, N eut % (Auto) 89.9 H, Lymph % (Auto) 5.0 L, [place] % (Auto) 4.6, Eos % (Auto) 0.0, Baso % (Auto) 0.1, Absolute Neuts (auto) 10.2 H, Nucleated RBC % 0, Sodium 145, Potassium 3.4, Chloride 97 L, Carbon Dioxide 26.9, Anion Gap 21 H, BUN 17, Creatinine 0.85, Est GFR (MDRD) Non-Af 90, BUN/Creatinine Ratio 20.0, Glucose 109 H, Calcium 9.5, Total Bilirubin 0.51, Direct Bilirubin 0.25 Rhythm: EKG: ECHO: Stress Test: Cardiac Cath: PCI: CT Surgery: Holter monitor: EPS: PPM: CXR: Chest CT Scan: Radiography Diagnostic Testing: Radiology Impression Chest X-Ray 03/11/25 15:05 IMPRESSION: 1. Right basilar atelectasis or pneumonia. 2. Right pleural effusion. Reading Location: [id number] Abdomen X-Ray 03/12/25 09:37 IMPRESSION: Unchanged dilation of the small bowel loops. Reading Location: [id number]
--- NOTE | 2025-03-12 13:54 | PCM.PN.SRG ---
Subjective Subjective Patient was seen and evaluated on rounds today. He states he is still passing flatus. He states his abdomen feels nontender. No further bowel movements in the last 24 hours. X-rays this morning indicate persistent small bowel dilatation consistent with ileus versus obstruction Objective Data Objective Data Vital Signs: Vital Signs Temp Pulse Resp BP Pulse Ox O2 Del Method O2 Flow Rate 98.1 F 111 H 32 H 110/60 98 Nasal Cannula 2 03/12/25 08:00 03/12/25 08:00 03/12/25 08:00 03/12/25 08:00 03/12/25 08:00 03/12/25 08:00 03/12/25 08:00 FiO2 29 03/11/25 17:00 Oxygen Flow Rate (L/min) 2 Oxygen Delivery Method Nasal Cannula Weight: 116 lb 9.992 oz Body Mass Index (BMI) 16.2 Intake & Output: Intake and Output for Last 24 Hours 03/10/25 03/11/25 03/12/25 23:59 23:59 23:59 Intake Total 379.5 / 379.5 2850 / 2880 460 / 460 Output Total 4400 / 4800 1250 / 1400 400 / 400 Balance -4020.5 / -4420.5 1600 / 1480 60 / 60 Medical Nutrition Assessment Dietitian: Malnutrition Criteria Met Start: 03/07/25 15:56 Freq: Status: Active Protocol: Document 03/10/25 13:40 JORDAN (Rec: 03/10/25 13:44 SLA [id number]) Nutrition Malnutrition Evidence of Yes Malnutrition Exists Malnutrition (severe Acute Illness/Injury ): Evidenced By Suboptimal Energy Intake (Severe),Weight Loss (Severe), Physical Changes (Moderate) Intake Problem Inadequate Oral Intake Etiology related to altered GI function/ileus Signs/Symptoms as evidenced by poor po intake Status Active Problem Clinical Problem Acute Disease or Injury Related Malnutrition Etiology severe protein-calorie malnutrition in the context of acute illness related to altered GI function and inability to take adequate energy/pro Signs/Symptoms as evidenced by current NPO, BMI 17.2, unintentional weight loss ~18% body weight x 9-10 months (less than 1 year time frame), muscle wasting/fat depletion noted in clavicle area, PO meeting less than 75% estimated nutrition needs x 6 months Status Active Problem Recommendation Dietitian Recommend advance diet as tolerated to Transitional Recommendations/ with goal of liberalized regular diet. Changes Will provide ensure plus high protein tid w/ meals Lab / Micro Data 03/12/25 03:20 03/12/25 03:20 Labs: Laboratory Results - last 24 hr 03/12/25 03:20: WBC 11.4 H, RBC 3.30 L, Hgb 8.8 L, Hct 28.8 L, MCV 87.3, MCH 26.7 L, MCHC 30.6 L, RDW Std Deviation 57.3 H, RDW Coeff of Wilbert 18.0 H, Plt Count 531 H, MPV 9.9, Immature Gran % (Auto) 0.400, Neut % (Auto) 89.9 H, Lymph % (Auto) 5.0 L, [place] % (Auto) 4.6, Eos % (Auto) 0.0, Baso % (Auto) 0.1, Absolute Neuts (auto) 10.2 H, Absolute Lymphs (auto) 0.57 L, Nucleated RBC % 0, Sodium 145, Potassium 3.4, Chloride 97 L, Carbon Dioxide 26.9, Anion Gap 21 H, BUN 17, Creatinine 0.85, Estim Creat Clear Calc 58.46, Est GFR (MDRD) Non-Af 90, BUN/Creatinine Ratio 20.0, Glucose 109 H, Calcium 9.5, Total Bilirubin 0.51, Direct Bilirubin 0.25, AST 28, ALT 6, Alkaline Phosphatase 72, Total Protein 5.6 L, Albumin 2.6 L, Globulin 3.1 Micro: Microbiology 03/06/25 09:24 Stool Stool Occult Blood (DESHAUN) - Final Occult Blood Positive Radiography Diagnostic Testing: Radiology Impression Chest X-Ray 03/11/25 15:05 IMPRESSION: 1. Right basilar atelectasis or pneumonia. 2. Right pleural effusion. Reading Location: [id number] Abdomen X-Ray 03/12/25 09:37 IMPRESSION: Unchanged dilation of the small bowel loops. Reading Location: [id number] Physical Exam Narrative He is alert and oriented x 3. He is in no acute distress. His abdomen is soft and nontender. Mild to moderate distention. Assessment & Plan Assessment/Plan (1) SBO (small bowel obstruction): PLAN: The patient is a 74-year-old male being seen for persistent ileus versus obstruction. Would favor ileus given the fact that he is passing flatus and stool, and this may be related to medications. Clinically he is passing flatus and stool. Initial CT on admission showed profound amount of stool burden. Review of images still seems to indicate colonic stool. Would recommend continuing to keep the NG tube in place to decompress small bowel. I encouraged him to be up and ambulating. Will repeat x-rays in a.m. Will also try another soapsuds enema today. Patient is agreeable to this plan. Charges/Coding Visit Charges Inpatient E&M: 89868 Subs Hosp L3
[2025-03-12] MEDS: Dext 5%-0.45% NS 1,000 ML 60 ML IV (15:43)
[2025-03-13] VITALS (14 sets, daily range): BP systolic 108–132; BP diastolic 54–68; PULSE 93–116; RESP 14–29; TEMP 36.1–36.8; O2SAT 90–100; BMI 15.9
--- NOTE | 2025-03-13 04:00 | RAD_ITS ---
PROCEDURE: ABD DECUB AND/OR ERECT(PORTABLE 03/13/2025 REASON FOR EXAM: SBO TECHNIQUE: Single view abdomen. COMPARISON: 03/12/2025. FINDINGS: The tip of the enteric feeding tube is at the level of the gastric body. Mild increase in moderate gaseous distention of the small bowels. Unchanged aorto biiliac stent graft. Normal visualized lung bases. There is no demonstrated free abdominal air. Normal visualized liver. Normal visualized spleen. Normal visualized kidneys. The soft tissue structures of the pelvis are unremarkable. Moderate diffuse spondylosis. RAD/Abd Decub and/or Erect(Portabl IMPRESSION: The tip of the enteric feeding tube is at the level of the gastric body. Mild increase in moderate gaseous distention of the small bowels. Reading Location: [facility]
[2025-03-13] MEDS: Piperacil/Tazobactam 3.375 GM in 0.9% Normal Saline (50mL MB+) 50 ML IV ×3 (05:38→21:07)
[2025-03-13 05:53] LABS: Absolute Lymphocyte Count 0.55 X10^3/uL (0.83-4.51); Absolute Neutrophil Count 10.6 X10^3/uL (2.0-7.7); Basophil# 0.01 X10^3/uL; Basophil% 0.1 % (0-1); Eosinophil# 0.02 X10^3/uL; Eosinophils% 0.2 % (0-5); Hematocrit 27.4 % (40-54); Hemoglobin 8.2 g/dL (13.0-16.5); Lymphocyte # 0.55 X10^3/ul (0.83-4.51); Lymphocyte % 4.7 % (19-41); Mean Corp Hgb Conc 29.9 g/dL (32-36); Mean Corpuscular Hgb 26.4 pg (27.0-32.0); Mean Corpuscular Volume 88.1 fL (80-94); Mean Platelet Vol. 9.6 fl (6.2-12.0); Monocyte% 3.4 % (0-10); NRBC Flagged by Analyzer 0 % (0-5); Neutrophil # 10.57 X10^3/uL (2.7-7.7); POSITIVE DIFFERENTIAL YES; Platelet Count 403 K/mm3 (150-450); RBC Distribution Width CV 18.1 % (11.6-14.6); RBC Distribution Width SD 58.3 fl (35.1-43.9); Red Blood Count 3.11 M/mm3 (4.6-6.2); White Blood Count 11.6 K/mm3 (4.4-11.0)
[2025-03-13 06:18] LABS: Anion Gap 8 (5-15); BUN 16 mg/dL (4-19); BUN/Creat Ratio 19.6 RATIO (10-20); Calcium,Total 9.6 mg/dL (7.6-11.0); Carbon Dioxide 33.9 mmol/L (21.0-32.0); Chloride 102 mmol/L (98-108); Creatinine, Serum 0.79 mg/dL (0.70-1.20); EST Glomerular Filtration Rate 92 (>60); Estimated Creatinine Clearance 57.67 ml/min (50-250); Glucose 133 mg/dL (70-99); Potassium 3.2 mmol/L (3.3-5.1); Sodium Level 144 mmol/L (133-145)
--- NOTE | 2025-03-13 07:02 | PCM.PN.HOSP ---
Reason for Visit Reason for Visit: Diagnoses Unspecified severe protein-calorie malnutrition (03/06/25) Essential (primary) hypertension (03/06/25) Unspecified atrial fibrillation (03/06/25) Orthostatic hypotension (03/06/25) Chronic obstructive pulmonary disease, unspecified (03/06/25) Unspecified intestinal obstruction, unspecified as to partial versus complete obstruction (03/06/25) Gastrointestinal hemorrhage, unspecified (03/06/25) Unspecified abnormal finding in specimens from other organs, systems and tissues (03/06/25) Personal history of other specified conditions (03/06/25) 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) Subjective Subjective No new complaints. Objective Data Objective Data Vital Signs: Vital Signs Temp Pulse Resp BP Pulse Ox O2 Del Method O2 Flow Rate 36.8 C 109 H 25 H 122/66 H 90 Nasal Cannula 2 03/13/25 05:00 03/13/25 06:00 03/13/25 06:00 03/13/25 06:00 03/13/25 05:00 03/13/25 06:00 03/13/25 06:00 FiO2 29 03/11/25 17:00 Oxygen Flow Rate (L/min) 2 Oxygen Delivery Method Nasal Cannula Weight: 51.9 kg Body Mass Index (BMI) 15.9 Intake & Output: Intake and Output for Last 24 Hours 03/11/25 03/12/25 03/13/25 23:59 23:59 23:59 Intake Total 2850 / 2880 610 / 610 50 / 50 Output Total 1250 / 1400 1650 / 1650 200 / 200 Balance 1600 / 1480 -1040 / -1040 -150 / -150 Medical Nutrition Assessment Dietitian: Malnutrition Criteria Met Start: 03/07/25 15:56 Freq: Status: Active Protocol: Document 03/10/25 13:40 SLA (Rec: 03/10/25 13:44 SLA [id number]) Nutrition Malnutrition Evidence of Yes Malnutrition Exists Malnutrition (severe Acute Illness/Injury ): Evidenced By Suboptimal Energy Intake (Severe),Weight Loss (Severe), Physical Changes (Moderate) Intake Problem Inadequate Oral Intake Etiology related to altered GI function/ileus Signs/Symptoms as evidenced by poor po intake Status Active Problem Clinical Problem Acute Disease or Injury Related Malnutrition Etiology severe protein-calorie malnutrition in the context of acute illness related to altered GI function and inability to take adequate energy/pro Signs/Symptoms as evidenced by current NPO, BMI 17.2, unintentional weight loss ~18% body weight x 9-10 months (less than 1 year time frame), muscle wasting/fat depletion noted in clavicle area, PO meeting less than 75% estimated nutrition needs x 6 months Status Active Problem Recommendation Dietitian Recommend advance diet as tolerated to Transitional Recommendations/ with goal of liberalized regular diet. Changes Will provide ensure plus high protein tid w/ meals Lab / Micro Data 03/13/25 05:43 03/13/25 05:43 Labs: Laboratory Results - last 24 hr 03/13/25 05:43: WBC 11.6 H, RBC 3.11 L, Hgb 8.2 L, Hct 27.4 L, MCV 88.1, MCH 26.4 L, MCHC 29.9 L, RDW Std Deviation 58.3 H, RDW Coeff of Wilbert 18.1 H, Plt Count 403, MPV 9.6, Immature Gran % (Auto) 0.600, Neut % (Auto) 91.0 H, Lymph % (Auto) 4.7 L, [place] % (Auto) 3.4, Eos % (Auto) 0.2, Baso % (Auto) 0.1, Absolute Neuts (auto) 10.6 H, Absolute Lymphs (auto) 0.55 L, Nucleated RBC % 0, Sodium 144, Potassium 3.2 L, Chloride 102, Carbon Dioxide 33.9 H, Anion Gap 8, BUN 16, Creatinine 0.79, Estim Creat Clear Calc 57.67, Est GFR (MDRD) Non-Af 92, BUN/Creatinine Ratio 19.6, Glucose 133 H, Calcium 9.6 Micro: Microbiology 03/06/25 09:24 Stool Stool Occult Blood (DESHAUN) - Final Occult Blood Positive Radiography Diagnostic Testing: Radiology Impression Abdomen X-Ray 03/12/25 09:37 IMPRESSION: Unchanged dilation of the small bowel loops. Reading Location: [id number] Abdomen X-Ray 03/13/25 04:00 IMPRESSION: The tip of the enteric feeding tube is at the level of the gastric body. Mild increase in moderate gaseous distention of the small bowels. Reading Location: [place] [id number] Physical Exam Const alert and no apparent distress HEENT head/scalp atraumatic and moist oral mucous membranes HEENT Narrative: NGT in place. Resp normal respiratory effort, no retractions, no use of accessory muscles and clear to auscultation bilaterally Cardio regular rate, regular rhythm, S1 normal heart sound and S2 normal heart sound GI GI Narrative: hypoactive BS. Neuro Sensorium / Orientation: awake and alert Assessment & Plan Assessment/Plan (1) Atrial fibrillation with RVR: PLAN: In NSR Cardiology following. Holding off on OAC given GIB. Follow up outpatient for evaluation for Watchman. on PRN metoprolol and dilt. (2) SBO (small bowel obstruction): PLAN: v Ileus, surgery favoring ileus. General surgery following. NGT in place. Follow up xray on 03/14 (3) GI bleed: PLAN: 2/2 MWT. EGD on 03/07 that showed the MWT and treated with an argon laser, erosive gastropathy. Hemoglobin stable (4) Pleural effusion: PLAN: Right sided pleural effusion. Thoracentesis 03/07 removed 390 cc of fluid. Consistent with transudative effusion. Repeat thoracentesis had been ordered. Given the relatively low amount of fluid removed on the , it was transudative, CXR on the showed a small right sided pleural effusion--will discontinue given the risks at this time out weigh the benefits. (5) ABLA (acute blood loss anemia): PLAN: Hg 11.3 on the . 2/2 GIB from MWT. Has remained stable. No need for transfusion. Continue to monitor. (6) Protein calorie malnutrition: PLAN: Weight loss of 18kg since April 2024. Nutrition following. Currently NPO. PLAN: Plan VTE prophylaxis with SCDs Charges/Coding Visit Charges Inpatient E&M: 68009 Subs Hosp L2
--- NOTE | 2025-03-13 07:24 | PCM.PN.INT ---
Assessment & Plan Assessment/Plan (1) Abnormal pleural fluid: PLAN: Plan RECOMMENDATIONS: 1. Await finalized pleural fluid analysis, including cytology. 2. Continue empiric antibiotics to address right lower lobe pneumonia. Recommend 7-day treatment course. 3. The patient should follow-up with his primary centerless grinder Dr. Ajay Malagon regarding ongoing care and management after discharge. IMPRESSIONS: 1. Pleural effusion In April 2024, the patient was noted to have a right sided exudative pleural effusion with atypical mesothelial proliferation. To date, the patient has already been evaluated by an outside centerless grinder, cardiothoracic surgery and oncology. On September 16 2024, the patient underwent a right pleuroscopy with conversion to mini thoracotomy with partial decortication and pleural biopsies per outside cardiothoracic surgery. 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 During this admission, he does appear to have bilateral pleural effusions on his most recent CTA chest with evidence of a right lower lobe consolidation with air bronchograms. The left-sided pleural effusion appears transudative in nature. No additional intervention or workup is required at this time regarding the patient's left-sided effusion, while awaiting cytology results. I agree with continuing antibiotics to address his right lower lobe pneumonia. Continue to wean supplemental oxygen to maintain saturations at or above 90%. The patient should ultimately follow-up with his primary centerless grinder after discharge. This note was generated with [employer] dictation software. It may contain incorrect words, spelling, and punctuation that were not noted in checking the note before signing. Subjective Subjective The patient was seen and examined at the bedside this morning. Events from the last 24 hours have been reviewed. The patient is currently afebrile, hemodynamically stable and maintaining appropriate oxygen saturations on 2 L/min via nasal cannula. The patient is currently documented to be overall net -3.7 L for the hospitalization. White blood cell count was noted to be 11,000 with a hemoglobin of 8.2 g/dL. Potassium was low at 3.2. Creatinine is within normal limits. The patient denied the presence of abdominal pain or shortness of breath this morning. Objective Data Objective Data The patient's most recent lab work, culture data and imaging studies have all been personally reviewed. Pleural fluid cytology is pending. Vital Signs: Vital Signs Temp Pulse Resp BP Pulse Ox O2 Del Method O2 Flow Rate 98.2 F 106 H 20 H 122/68 H 98 Nasal Cannula 2 03/13/25 05:00 03/13/25 07:00 03/13/25 07:00 03/13/25 07:00 03/13/25 07:00 03/13/25 07:00 03/13/25 07:00 FiO2 29 03/11/25 17:00 Oxygen Flow Rate (L/min) 2 Oxygen Delivery Method Nasal Cannula Weight: 114 lb 6.719 oz Body Mass Index (BMI) 15.9 Intake & Output: Intake and Output for Last 24 Hours 03/11/25 03/12/25 03/13/25 23:59 23:59 23:59 Intake Total 2850 / 2880 610 / 610 50 / 50 Output Total 1250 / 1400 1650 / 1650 200 / 200 Balance 1600 / 1480 -1040 / -1040 -150 / -150 Medical Nutrition Assessment Dietitian: Malnutrition Criteria Met Start: 03/07/25 15:56 Freq: Status: Active Protocol: Document 03/10/25 13:40 SLA (Rec: 03/10/25 13:44 SLA [id number]) Nutrition Malnutrition Evidence of Yes Malnutrition Exists Malnutrition (severe Acute Illness/Injury ): Evidenced By Suboptimal Energy Intake (Severe),Weight Loss (Severe), Physical Changes (Moderate) Intake Problem Inadequate Oral Intake Etiology related to altered GI function/ileus Signs/Symptoms as evidenced by poor po intake Status Active Problem Clinical Problem Acute Disease or Injury Related Malnutrition Etiology severe protein-calorie malnutrition in the context of acute illness related to altered GI function and inability to take adequate energy/pro Signs/Symptoms as evidenced by current NPO, BMI 17.2, unintentional weight loss ~18% body weight x 9-10 months (less than 1 year time frame), muscle wasting/fat depletion noted in clavicle area, PO meeting less than 75% estimated nutrition needs x 6 months Status Active Problem Recommendation Dietitian Recommend advance diet as tolerated to Transitional Recommendations/ with goal of liberalized regular diet. Changes Will provide ensure plus high protein tid w/ meals Lab / Micro Data Attestation: I reviewed the patient's lab results. 03/13/25 05:43 03/13/25 05:43 Labs: Laboratory Results - last 24 hr 03/13/25 05:43: WBC 11.6 H, RBC 3.11 L, Hgb 8.2 L, Hct 27.4 L, MCV 88.1, MCH 26.4 L, MCHC 29.9 L, RDW Std Deviation 58.3 H, RDW Coeff of Wilbert 18.1 H, Plt Count 403, MPV 9.6, Immature Gran % (Auto) 0.600, Neut % (Auto) 91.0 H, Lymph % (Auto) 4.7 L, [place] % (Auto) 3.4, Eos % (Auto) 0.2, Baso % (Auto) 0.1, Absolute Neuts (auto) 10.6 H, Absolute Lymphs (auto) 0.55 L, Nucleated RBC % 0, Sodium 144, Potassium 3.2 L, Chloride 102, Carbon Dioxide 33.9 H, Anion Gap 8, BUN 16, Creatinine 0.79, Estim Creat Clear Calc 57.67, Est GFR (MDRD) Non-Af 92, BUN/Creatinine Ratio 19.6, Glucose 133 H, Calcium 9.6 Micro: Microbiology 03/06/25 09:24 Stool Stool Occult Blood (DESHAUN) - Final Occult Blood Positive Radiography Diagnostic Testing: Radiology Impression Abdomen X-Ray 03/12/25 09:37 IMPRESSION: Unchanged dilation of the small bowel loops. Reading Location: [facility] Abdomen X-Ray 03/13/25 04:00 IMPRESSION: The tip of the enteric feeding tube is at the level of the gastric body. Mild increase in moderate gaseous distention of the small bowels. Reading Location: [place] [id number] Physical Exam Const alert and no apparent distress General Appearance: cooperative HEENT normocephalic, head/scalp atraumatic and moist oral mucous membranes HEENT Narrative: Nasogastric tube in place Eyes PERRL, EOMs intact bilaterally and conjunctivae normal Neck supple General: trachea midline Chest inspection of chest normal Resp normal respiratory effort Auscultation: diminished lung sounds Cardio regular rate and regular rhythm GI normal to inspection, nondistended, normoactive bowel sounds Extremity no clubbing, cyanosis or edema Skin no rashes or lesions noted Neuro CN's II-XII intact bilaterally, moves all extremities and no focal motor deficits Psych Mood & Affect: flat affect Charges/Coding Visit Charges Inpatient E&M: 23426 Subs Hosp L2
--- NOTE | 2025-03-13 08:11 | PCM.PN.SRG ---
Subjective Subjective Patient evaluated resting comfortably in bed. He notes passing minimal flatus. He denies any bowel movements. NG tube output is 200 overnight. KUB this morning showed mild increase in gaseous distenton of small bowel. Objective Data Objective Data Vital Signs: Vital Signs Temp Pulse Resp BP Pulse Ox O2 Del Method O2 Flow Rate 98.2 F 106 H 20 H 122/68 H 98 Nasal Cannula 2 03/13/25 05:00 03/13/25 07:00 03/13/25 07:00 03/13/25 07:00 03/13/25 07:00 03/13/25 07:00 03/13/25 07:00 FiO2 29 03/11/25 17:00 Oxygen Flow Rate (L/min) 2 Oxygen Delivery Method Nasal Cannula Weight: 114 lb 6.719 oz Body Mass Index (BMI) 15.9 Intake & Output: Intake and Output for Last 24 Hours 03/11/25 03/12/25 03/13/25 23:59 23:59 23:59 Intake Total 2850 / 2880 610 / 610 50 / 50 Output Total 1250 / 1400 1650 / 1650 200 / 200 Balance 1600 / 1480 -1040 / -1040 -150 / -150 Medical Nutrition Assessment Dietitian: Malnutrition Criteria Met Start: 03/07/25 15:56 Freq: Status: Active Protocol: Document 03/10/25 13:40 SLA (Rec: 03/10/25 13:44 SLA [id number]) Nutrition Malnutrition Evidence of Yes Malnutrition Exists Malnutrition (severe Acute Illness/Injury ): Evidenced By Suboptimal Energy Intake (Severe),Weight Loss (Severe), Physical Changes (Moderate) Intake Problem Inadequate Oral Intake Etiology related to altered GI function/ileus Signs/Symptoms as evidenced by poor po intake Status Active Problem Clinical Problem Acute Disease or Injury Related Malnutrition Etiology severe protein-calorie malnutrition in the context of acute illness related to altered GI function and inability to take adequate energy/pro Signs/Symptoms as evidenced by current NPO, BMI 17.2, unintentional weight loss ~18% body weight x 9-10 months (less than 1 year time frame), muscle wasting/fat depletion noted in clavicle area, PO meeting less than 75% estimated nutrition needs x 6 months Status Active Problem Recommendation Dietitian Recommend advance diet as tolerated to Transitional Recommendations/ with goal of liberalized regular diet. Changes Will provide ensure plus high protein tid w/ meals Lab / Micro Data 03/13/25 05:43 03/13/25 05:43 Labs: Laboratory Results - last 24 hr 03/13/25 05:43: WBC 11.6 H, RBC 3.11 L, Hgb 8.2 L, Hct 27.4 L, MCV 88.1, MCH 26.4 L, MCHC 29.9 L, RDW Std Deviation 58.3 H, RDW Coeff of Wilbert 18.1 H, Plt Count 403, MPV 9.6, Immature Gran % (Auto) 0.600, Neut % (Auto) 91.0 H, Lymph % (Auto) 4.7 L, [place] % (Auto) 3.4, Eos % (Auto) 0.2, Baso % (Auto) 0.1, Absolute Neuts (auto) 10.6 H, Absolute Lymphs (auto) 0.55 L, Nucleated RBC % 0, Sodium 144, Potassium 3.2 L, Chloride 102, Carbon Dioxide 33.9 H, Anion Gap 8, BUN 16, Creatinine 0.79, Estim Creat Clear Calc 57.67, Est GFR (MDRD) Non-Af 92, BUN/Creatinine Ratio 19.6, Glucose 133 H, Calcium 9.6 Micro: Microbiology 03/06/25 09:24 Stool Stool Occult Blood (DESHAUN) - Final Occult Blood Positive Radiography Diagnostic Testing: Radiology Impression Abdomen X-Ray 03/12/25 09:37 IMPRESSION: Unchanged dilation of the small bowel loops. Reading Location: [id number] Abdomen X-Ray 03/13/25 04:00 IMPRESSION: The tip of the enteric feeding tube is at the level of the gastric body. Mild increase in moderate gaseous distention of the small bowels. [facility] Physical Exam HEENT HEENT Narrative: NG tube intact with brown liquid GI GI Narrative: Abdomen- soft, less distended. Hypoactive bowel sounds. Assessment & Plan Assessment/Plan (1) SBO (small bowel obstruction): PLAN: I am following this patient in conjunction with Dr. Dawson. He has independently evaluated this patient. Labs reviewed Continue NG tube Repeat KUB tomorrow No surgical intervention planned at this time We will continue to monitor this patient Charges/Coding Visit Charges Inpatient E&M: 21329 Subs Hosp L2
[2025-03-13] MEDS: Dext 5%-0.45% NS 1,000 ML 60 ML IV (08:46)
[2025-03-13] MEDS: Menthol/Lanolin/Calamine/Znox 113 GM Tube 1 APPLIC TOPICAL ×2 (10:02→21:06)
[2025-03-13] MEDS: Pantoprazole Sodium 40 MG in 0.9% Normal Saline (100mL MB+) 100 ML 330 MG IV ×2 (10:02→21:07)
[2025-03-13 14:08] LABS: Aldolase 4.9 U/L (3.3-10.3); Angiotensin Convert Enzyme 35 U/L (14-82); Anti-Centromere B Ab <0.2 AI (0.0-0.9); Anti-Chromatin <0.2 AI (0.0-0.9); Anti-Jo <0.2 AI (0.0-0.9); Anti-Scleroderma-70 AB <0.2 AI (0.0-0.9); Anti-dsDNA Ab <1 IU/mL (0-9); CCP IgG Antibodies 8 units (0-19); RNP Ab 0.3 AI (0.0-0.9); SJOGREN'S Anti-SS-A test < 0.2 AI (0.0-0.9); SJOGREN'S Anti-SS-B test < 0.2 AI (0.0-0.9); Smith Ab <0.2 AI (0.0-0.9)
--- NOTE | 2025-03-13 18:59 | PCM.PN.BLA ---
Progress Note The patient is still having 200 to 300 mL of brown bilious fluid into NG tube. Physical Exam Const alert and no apparent distress General Appearance: cooperative HEENT normocephalic, head/scalp atraumatic and moist oral mucous membranes HEENT Narrative: Nasogastric tube in place Eyes PERRL, EOMs intact bilaterally and conjunctivae normal Neck supple General: trachea midline Chest inspection of chest normal Resp normal respiratory effort Auscultation: diminished lung sounds Cardio regular rate and regular rhythm GI normal to inspection, nondistended, normoactive bowel sounds Extremity no clubbing, cyanosis or edema Skin no rashes or lesions noted Neuro CN's II-XII intact bilaterally, moves all extremities and no focal motor deficits Psych Mood & Affect: flat affect Assessment & Plan Assessment/Plan (1) GI bleed: PLAN: Plan 74-year-old gentleman with distended abdomen and imaging evidence of severe constipation with ileus and possible gastroparesis without gastric outlet obstruction seen in the setting of possible GI bleed. Midodrine, can be associated with an ileus. Specifically, some case reports suggest that midodrine could have an inhibitory effect on intestinal motility, possibly leading to severe ileus. -Recommend to keep NG tube to low intermittent suction -The patient would likely need to have upper endoscopy tomorrow to evaluate cause of upper GI bleed -Protonix 40 mg IV twice daily -Stop midodrine -Workup for adrenal insufficiency in the setting of hypotension as he may need a mineralocorticoid or glucocorticoid for his hypotension Patient will undergo EGD today to evaluate his upper GI tract for GI bleed. He was explained alternatives, risk and benefits include not withstanding bleeding, infection, subs, perforation, need for emergent urgent . He will have an ASA of 3. 03/08/2025-the patient underwent an upper endoscopy yesterday. Findings: A 20 mm bleeding [place] tear with stigmata of recent bleeding was found. Coagulation for hemostasis using argon plasma at 0.3 liters/minute and 20 hensley was successful. Estimated blood loss was minimal. A few localized 5 mm erosions with no stigmata of recent bleeding were found in the gastric body. No gross lesions were noted in the entire examined duodenum. Impression: - [place] tear. Treated with argon plasma coagulation (APC). - Erosive gastropathy with no stigmata of recent bleeding. - No gross lesions in the entire examined duodenum. - No specimens collected. Recommendation: - Discharge patient to home. - Resume previous diet. - Continue present medications. - Clear liquid diet today. - Continue present medications. I do not know the etiology of his ileus. I suspect that it was from his midodrine as that is a known side effect. Low blood pressures possibly secondary to hypovolemia. His a.m. cortisol level and p.m. cortisol level were normal and not consistent with adrenal insufficiency. Hemoglobin seems to be stable. 03/10/2025-his hemoglobin seems to be stable from his previous [place] tear which was worsened by his previous in March tube placement. The differential diagnosis for recurrent ileus and recurrent pleural effusions with weight loss can be indicative of malabsorption, chylothorax, sarcoidosis, chronic pancreatitis, connective tissue disease or underlying malignancy. He has had recurrent thoracentesis in which the cytology is pending. It was identified as being a transudative fluid. I think that he should undergo testing for malabsorption including stool for alpha-1 antitrypsin, celiac disease, inflammatory bowel disease. Since it was a transudative fluid that was removed from his lungs I do not think it is a chylothorax. Autoimmune disease that can cause this scenario that would affect the lungs causing pleural effusion and the small bowel causing an ileus or obstruction would be sarcoidosis. He does not have any history of alcohol so I do not suspect chronic pancreatitis. Also , I did not see any signs of chronic pancreatitis on his previous imaging of the abdomen pelvis. However we can check a stool for fecal elastase. He should be checked for systemic lupus erythematosus and rheumatoid arthritis which can cause prior recurrent pleural effusions and recurrent ileus. Malignancy tumor markers can be checked with CA 19-9, CEA, alpha-fetoprotein. This also can be paraneoplastic phenomenon which lung pathology is actually causing small bowel issues. That would lead to a chronic intestinal pseudoobstruction of the small bowel secondary to small cell lung cancer. 03/13/2025-biochemical workup is pending. His JOYCELYN level is 35, CCP IgG antibody is 8, cortisol a.m. 32, cortisol in p.m. 20, CEA, CA 19-9,Anti hu-ab,, C3, C4, TTG, IgG4 all pending, serum protein electrophoresis plus MELITA is pending The symptoms of weight loss, recurrent idiopathic small bowel ileus, and pleural effusions could indicate a few possibilities, including?mesenteric panniculitis, sclerosing encapsulating peritonitis, or primary intestinal lymphangiectasia.?MP is a rare condition causing inflammation and fibrosis in the mesentery, while SEP involves peritonitis that can lead to intestinal obstruction.?PIL, also known as Waldmann's disease, is a chronic lymphatic disorder that can cause various symptoms like weight loss and pleural effusion. Structural etiology to his symptoms also could be superior mesenteric artery syndrome and small bowel obstruction. He would need a CTA. Awaiting biochemical workup. He is currently being seen by surgery. I will discuss the case with them. Visit Charges Inpatient E&M: 24106 Subs Hosp L3
[2025-03-13] MEDS: Pravastatin 40 MG Tablet PO (21:06)
[2025-03-13] MEDS: 0.9% Saline Lock 10 ML Syringe IV (21:15)
[2025-03-14] MEDS: Dext 5%-0.45% NS 1,000 ML 60 ML IV ×2 (01:05→17:58)
[2025-03-14 02:00] VITALS: O2SAT 98
[2025-03-14 02:50] VITALS: BMI 16.4
[2025-03-14 03:35] LABS: Absolute Lymphocyte Count 0.52 X10^3/uL (0.83-4.51); Absolute Neutrophil Count 7.8 X10^3/uL (2.0-7.7); Basophil# 0.01 X10^3/uL; Basophil% 0.1 % (0-1); Eosinophils% 1.1 % (0-5); Hematocrit 24.4 % (40-54); Hemoglobin 7.3 g/dL (13.0-16.5); Lymphocyte # 0.52 X10^3/ul (0.83-4.51); Lymphocyte % 5.9 % (19-41); Mean Corp Hgb Conc 29.9 g/dL (32-36); Mean Corpuscular Hgb 26.4 pg (27.0-32.0); Mean Corpuscular Volume 88.4 fL (80-94); Mean Platelet Vol. 9.6 fl (6.2-12.0); Monocyte# 0.33 X10^3/uL; Monocyte% 3.8 % (0-10); NRBC Flagged by Analyzer 0 % (0-5); Neutrophil # 7.75 X10^3/uL (2.7-7.7); Neutrophil % 88.8 % (47-70); POSITIVE DIFFERENTIAL YES; Platelet Count 325 K/mm3 (150-450); RBC Distribution Width CV 17.9 % (11.6-14.6); RBC Distribution Width SD 57.6 fl (35.1-43.9); Red Blood Count 2.76 M/mm3 (4.6-6.2); White Blood Count 8.7 K/mm3 (4.4-11.0)
--- NOTE | 2025-03-14 04:02 | RAD_ITS ---
PROCEDURE: ABD DECUB AND/OR ERECT(PORTABL 03/14/2025 REASON FOR EXAM: SMALL BOWEL OBSTRUCTION TECHNIQUE: Single view abdomen. COMPARISON: 03/13/2025. FINDINGS: The tip of the enteric feeding tube is at the level of the gastric body. Mild further increase in moderate gaseous distention of the small bowels. Unchanged aorto biiliac stent graft. Normal visualized lung bases. There is no demonstrated free abdominal air. Normal visualized liver. Normal visualized spleen. Normal visualized kidneys. The soft tissue structures of the pelvis are unremarkable. Moderate diffuse spondylosis. RAD/Abd Decub and/or Erect(Portabl IMPRESSION: Further increase in gaseous bowel distention, probably secondary to small-bowel obstruction. Reading Location: [facility]
[2025-03-14 04:17] LABS: Anion Gap 8 (5-15); BUN 12 mg/dL (4-19); BUN/Creat Ratio 17.1 RATIO (10-20); Calcium,Total 9.1 mg/dL (7.6-11.0); Carbon Dioxide 33.5 mmol/L (21.0-32.0); Chloride 105 mmol/L (98-108); EST Glomerular Filtration Rate 95 (>60); Estimated Creatinine Clearance 59.44 ml/min (50-250); Glucose 105 mg/dL (70-99); Potassium 2.8 mmol/L (3.3-5.1); Sodium Level 146 mmol/L (133-145)
[2025-03-14] MEDS: Piperacil/Tazobactam 3.375 GM in 0.9% Normal Saline (50mL MB+) 50 ML IV ×3 (05:30→21:53)
--- NOTE | 2025-03-14 07:01 | PCM.PN.HOSP ---
Reason for Visit Reason for Visit: Diagnoses Acute posthemorrhagic anemia (03/06/25) Unspecified severe protein-calorie malnutrition (03/06/25) Unspecified protein-calorie malnutrition (03/06/25) Essential (primary) hypertension (03/06/25) Unspecified atrial fibrillation (03/06/25) Orthostatic hypotension (03/06/25) Chronic obstructive pulmonary disease, unspecified (03/06/25) Pleural effusion, not elsewhere classified (03/06/25) Unspecified intestinal obstruction, unspecified as to partial versus complete obstruction (03/06/25) Gastrointestinal hemorrhage, unspecified (03/06/25) Unspecified abnormal finding in specimens from other organs, systems and tissues (03/06/25) Personal history of other specified conditions (03/06/25) 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 Objective Data Objective Data Vital Signs: Vital Signs Temp Pulse Resp BP Pulse Ox O2 Del Method O2 Flow Rate 36.2 C L 93 14 108/58 L 98 Nasal Cannula 2 03/13/25 13:29 03/13/25 13:29 03/13/25 13:29 03/13/25 13:29 03/14/25 02:00 03/14/25 02:00 03/14/25 02:00 FiO2 29 03/11/25 17:00 Oxygen Flow Rate (L/min) 2 Oxygen Delivery Method Nasal Cannula Weight: 53.5 kg Body Mass Index (BMI) 16.4 Intake & Output: Intake and Output for Last 24 Hours 03/12/25 03/13/25 03/14/25 23:59 23:59 23:59 Intake Total 610 / 610 1350 / 1350 1029 / 1029 Output Total 1650 / 1650 1150 / 1150 575 / 575 Balance -1040 / -1040 200 / 200 454 / 454 Medical Nutrition Assessment Dietitian: Malnutrition Criteria Met Start: 03/07/25 15:56 Freq: Status: Active Protocol: Document 03/13/25 09:53 JORDAN (Rec: 03/13/25 09:54 JORDAN [id number]) Nutrition Malnutrition Evidence of Yes Malnutrition Exists Malnutrition (severe Acute Illness/Injury ): Evidenced By Suboptimal Energy Intake (Severe),Weight Loss (Severe), Physical Changes (Moderate) Intake Problem Inadequate Oral Intake Etiology related to altered GI function/ileus Signs/Symptoms as evidenced by NPO status Status Active Problem Clinical Problem Acute Disease or Injury Related Malnutrition Etiology severe protein-calorie malnutrition in the context of acute illness related to altered GI function and inability to take adequate energy/pro Signs/Symptoms as evidenced by current NPO, BMI 16.0, unintentional weight loss ~18% body weight x 9-10 months (less than 1 year time frame), muscle wasting/fat depletion noted in clavicle area, PO meeting less than 75% estimated nutrition needs x 6 months [employer] Status Active Problem Recommendation Dietitian Recommend advance diet as tolerated to Transitional Recommendations/ with goal of liberalized regular diet. Changes Will order ensure plus high protein tid w/ meals Consider supplemental nutrition support if unable to resume po diet within 2-3 days Lab / Micro Data 03/14/25 03:25 03/14/25 03:25 Labs: Laboratory Results - last 24 hr 03/10/25 19:00: Aldolase 4.9, Angiotensin Convert Enz 35, Cycl Citrul Peptide IgG 8, DORCAS-1 Antibody <0.2, SS-A/Ro IgG Antibody < 0.2, SS-B/La IgG Antibody < 0.2, Sm ([place]) Antibody <0.2, BORDER POLICE Antibody 0.3, Scl-70 Scleroderma Ab <0.2, Double Strand DNA Ab <1, Antichromatin Antibodies <0.2, Centromere B Antibody <0.2 03/14/25 03:25: WBC 8.7, RBC 2.76 L, Hgb 7.3 L, Hct 24.4 L, MCV 88.4, MCH 26.4 L, MCHC 29.9 L, RDW Std Deviation 57.6 H, RDW Coeff of Wilbert 17.9 H, Plt Count 325, MPV 9.6, Immature Gran % (Auto) 0.300, Neut % (Auto) 88.8 H, Lymph % (Auto) 5.9 L, [place] % (Auto) 3.8, Eos % (Auto) 1.1, Baso % (Auto) 0.1, Absolute Neuts (auto) 7.8 H, Absolute Lymphs (auto) 0.52 L, Nucleated RBC % 0, Sodium 146 H, Potassium 2.8 L, Chloride 105, Carbon Dioxide 33.5 H, Anion Gap 8, BUN 12, Creatinine 0.70, Estim Creat Clear Calc 59.44, Est GFR (MDRD) Non-Af 95, BUN/Creatinine Ratio 17.1, Glucose 105 H, Calcium 9.1 Micro: Microbiology 03/06/25 09:24 Stool Stool Occult Blood (DESHAUN) - Final Occult Blood Positive Radiography Diagnostic Testing: Radiology Impression Abdomen X-Ray 03/14/25 04:02 IMPRESSION: Further increase in gaseous bowel distention, probably secondary to small-bowel obstruction. Reading Location: [place] [address] Physical Exam Const alert and no apparent distress HEENT HEENT Narrative: NGT in place. Resp normal respiratory effort, no retractions, no use of accessory muscles and clear to auscultation bilaterally Cardio regular rate, regular rhythm, S1 normal heart sound and S2 normal heart sound GI normal to inspection, nondistended, normoactive bowel sounds, soft to palpation, non-tender and non-distended Extremity normal to inspection and full ROM Neuro Sensorium / Orientation: awake and alert Assessment & Plan Assessment/Plan (1) Atrial fibrillation with RVR: PLAN: In NSR Cardiology following. Holding off on OAC given GIB. Follow up outpatient for evaluation for Watchman. on PRN metoprolol and dilt. (2) SBO (small bowel obstruction): PLAN: v Ileus, surgery favoring ileus. General surgery following. NGT in place. SBFT ordered. If NPO continues through 03/15, will consult nutrition for initiation of TPN. (3) GI bleed: PLAN: 2/2 MWT. EGD on 03/07 that showed the MWT and treated with an argon laser, erosive gastropathy. Hemoglobin stable (4) Pleural effusion: PLAN: Right sided pleural effusion. Thoracentesis 03/07 removed 390 cc of fluid. Consistent with transudative effusion. Repeat thoracentesis had been ordered. Given the relatively low amount of fluid removed on the , it was transudative, CXR on the showed a small right sided pleural effusion--will discontinue given the risks at this time out weigh the benefits. (5) ABLA (acute blood loss anemia): PLAN: Hg 11.3 on the . 2/2 GIB from MWT. Down to 7.3. No need for transfusion. Continue to monitor. (6) Protein calorie malnutrition: PLAN: Weight loss of 18kg since April 2024. Nutrition following. Currently NPO. PLAN: Plan VTE prophylaxis with SCDs Charges/Coding Visit Charges Inpatient E&M: 30009 Subs Hosp L2
[2025-03-14 07:18] VITALS: O2SAT 99
--- NOTE | 2025-03-14 08:24 | PCM.PN.SRG ---
Subjective Subjective Patient evaluated resting comfortably in bed. He continues to note flatus. Negative bowel movement. No nausea, vomiting. Documented 300 mL output from NG tube over night. NG tube was not hooked to suction over night. Objective Data Objective Data Vital Signs: Vital Signs Temp Pulse Resp BP Pulse Ox O2 Del Method O2 Flow Rate 97.2 F L 93 14 108/58 L 99 Nasal Cannula 2 03/13/25 13:29 03/13/25 13:29 03/13/25 13:29 03/13/25 13:29 03/14/25 07:18 03/14/25 07:18 03/14/25 07:18 FiO2 29 03/11/25 17:00 Oxygen Flow Rate (L/min) 2 Oxygen Delivery Method Nasal Cannula Weight: 117 lb 15.157 oz Body Mass Index (BMI) 16.4 Intake & Output: Intake and Output for Last 24 Hours 03/12/25 03/13/25 03/14/25 23:59 23:59 23:59 Intake Total 610 / 610 1350 / 1350 1029 / 1029 Output Total 1650 / 1650 1150 / 1150 575 / 575 Balance -1040 / -1040 200 / 200 454 / 454 Medical Nutrition Assessment Dietitian: Malnutrition Criteria Met Start: 03/07/25 15:56 Freq: Status: Active Protocol: Document 03/13/25 09:53 JORDAN (Rec: 03/13/25 09:54 [facility] [id number]) Nutrition Malnutrition Evidence of Yes Malnutrition Exists Malnutrition (severe Acute Illness/Injury ): Evidenced By Suboptimal Energy Intake (Severe),Weight Loss (Severe), Physical Changes (Moderate) Intake Problem Inadequate Oral Intake Etiology related to altered GI function/ileus Signs/Symptoms as evidenced by NPO status Status Active Problem Clinical Problem Acute Disease or Injury Related Malnutrition Etiology severe protein-calorie malnutrition in the context of acute illness related to altered GI function and inability to take adequate energy/pro Signs/Symptoms as evidenced by current NPO, BMI 16.0, unintentional weight loss ~18% body weight x 9-10 months (less than 1 year time frame), muscle wasting/fat depletion noted in clavicle area, 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 Changes Will order ensure plus high protein tid w/ meals Consider supplemental nutrition support if unable to resume po diet within 2-3 days Lab / Micro Data 03/14/25 03:25 03/14/25 03:25 Labs: Laboratory Results - last 24 hr 03/10/25 19:00: Aldolase 4.9, Angiotensin Convert Enz 35, Cycl Citrul Peptide IgG 8, DORCAS-1 Antibody <0.2, SS-A/Ro IgG Antibody < 0.2, SS-B/La IgG Antibody < 0.2, Sm ([place]) Antibody <0.2, PHOTO EDITOR Antibody 0.3, Scl-70 Scleroderma Ab <0.2, Double Strand DNA Ab <1, Antichromatin Antibodies <0.2, Centromere B Antibody <0.2 03/14/25 03:25: WBC 8.7, RBC 2.76 L, Hgb 7.3 L, Hct 24.4 L, MCV 88.4, MCH 26.4 L, MCHC 29.9 L, RDW Std Deviation 57.6 H, RDW Coeff of Wilbert 17.9 H, Plt Count 325, MPV 9.6, Immature Gran % (Auto) 0.300, Neut % (Auto) 88.8 H, Lymph % (Auto) 5.9 L, [place] % (Auto) 3.8, Eos % (Auto) 1.1, Baso % (Auto) 0.1, Absolute Neuts (auto) 7.8 H, Absolute Lymphs (auto) 0.52 L, Nucleated RBC % 0, Sodium 146 H, Potassium 2.8 L, Chloride 105, Carbon Dioxide 33.5 H, Anion Gap 8, BUN 12, Creatinine 0.70, Estim Creat Clear Calc 59.44, Est GFR (MDRD) Non-Af 95, BUN/Creatinine Ratio 17.1, Glucose 105 H, Calcium 9.1 Micro: Microbiology 03/06/25 09:24 Stool Stool Occult Blood (DESHAUN) - Final Occult Blood Positive Radiography Diagnostic Testing: Radiology Impression Abdomen X-Ray 03/14/25 04:02 IMPRESSION: Further increase in gaseous bowel distention, probably secondary to small-bowel obstruction. Reading Location: [place] [address] Physical Exam HEENT HEENT Narrative: NG tube- intact and hooked to suction GI GI Narrative: Abdomen- soft, nontender. Hypoactive bowel sounds. Assessment & Plan Assessment/Plan (1) SBO (small bowel obstruction): PLAN: I am following this patient in conjunction with Dr. Friedman in Dr. Dawson's absence. He has independently evaluated this patient. Labs reviewed. Potassium being replaced with 80 meq. Will repeat potassium later this afternoon around 5pm. Aspiration precautions in place for patient Plan for patient to sit in chair most of the day Order small bowel follow-through today with Gastrografin KUB from this morning is showing mild increase in dilatation of the small bowel again We will continue to monitor this patient Charges/Coding Visit Charges Inpatient E&M: 05843 Subs Hosp L2
--- NOTE | 2025-03-14 09:00 | RAD_ITS ---
PROCEDURE: SMALL BOWEL SERIES ONLY 03/14/2025 REASON FOR EXAM: SMALL BOWEL OBSTRUCTION TECHNIQUE: Six (6) views of the abdomen. COMPARISON: Abdomen series dated 03/13/2025. FINDINGS: This study was performed bedside. The 1st image shows tip of the nasogastric tube in the body of the stomach. Contrast material is noted outlining the stomach and descending limb of the duodenum. Gas distended loops of small bowel are noted. 6 hour image shows faint opacification of small-bowel loops. 12 hour image shows gas distended loops of small bowel with faint opacification of distal small bowel loops. Nasogastric tube tip remains in place. 24 hour image shows faint opacification of the ileum and possibly the cecum. RAD/Small Bowel Series Only IMPRESSION: Study is limited with faint opacification. Findings suggest a partial small josé luis wel obstruction. Consider computed tomography of the abdomen for further evaluation if indicated . Reading Location: [place] [address]
[2025-03-14] MEDS: Potassium Chloride 10mEq/100mL 10 MEQ/100 ML IV.SOLN. 100 MEQ IV BOLUS ×8 (09:03→13:59)
[2025-03-14] MEDS: Menthol/Lanolin/Calamine/Znox 113 GM Tube 1 APPLIC TOPICAL ×2 (09:12→21:53)
[2025-03-14] MEDS: Pantoprazole Sodium 40 MG in 0.9% Normal Saline (100mL MB+) 100 ML 330 MG IV ×2 (10:26→20:59)
[2025-03-14 14:22] VITALS: BP 124/72; PULSE 82; RESP 24; TEMP 36.5; O2SAT 100
[2025-03-14] MEDS: 0.9% Saline Lock 10 ML Syringe IV ×2 (14:44→20:59)
[2025-03-14 16:15] VITALS: BP 119/72; PULSE 87; RESP 20; TEMP 36.5; O2SAT 95
[2025-03-14 21:00] VITALS: BP 121/62; PULSE 92; RESP 20; TEMP 36.6; O2SAT 94
[2025-03-15 03:00] VITALS: BP 144/67; PULSE 87; RESP 20; TEMP 36.3; O2SAT 90
[2025-03-15 04:40] VITALS: BMI 16.3
[2025-03-15] MEDS: Piperacil/Tazobactam 3.375 GM in 0.9% Normal Saline (50mL MB+) 50 ML IV ×3 (05:28→20:58)
[2025-03-15 05:44] LABS: Absolute Lymphocyte Count 0.49 X10^3/uL (0.83-4.51); Absolute Neutrophil Count 5.7 X10^3/uL (2.0-7.7); Basophil# 0.01 X10^3/uL; Basophil% 0.2 % (0-1); Eosinophil# 0.09 X10^3/uL; Eosinophils% 1.4 % (0-5); Hematocrit 26.7 % (40-54); Hemoglobin 8.2 g/dL (13.0-16.5); Lymphocyte # 0.49 X10^3/ul (0.83-4.51); Lymphocyte % 7.4 % (19-41); Mean Corp Hgb Conc 30.7 g/dL (32-36); Mean Corpuscular Hgb 26.5 pg (27.0-32.0); Mean Corpuscular Volume 86.4 fL (80-94); Mean Platelet Vol. 9.7 fl (6.2-12.0); Monocyte# 0.29 X10^3/uL; Monocyte% 4.4 % (0-10); NRBC Flagged by Analyzer 0 % (0-5); Neutrophil # 5.74 X10^3/uL (2.7-7.7); Neutrophil % 86.1 % (47-70); POSITIVE DIFFERENTIAL YES; Platelet Count 328 K/mm3 (150-450); RBC Distribution Width CV 17.7 % (11.6-14.6); RBC Distribution Width SD 55.5 fl (35.1-43.9); Red Blood Count 3.09 M/mm3 (4.6-6.2); White Blood Count 6.7 K/mm3 (4.4-11.0)
[2025-03-15 06:07] LABS: Albumin 2.2 g/dL (2.9-4.4); Alpha-1-Globulins 0.5 g/dL (0.0-0.4); Alpha-2-Globulins 1.1 g/dL (0.4-1.0); Carbohydrate AG 19-9 17 U/mL (0-35); Carcinoembryonic Antigen 1.6 ng/mL (0.0-4.7); Complement C3 164 mg/dL (82-167); Complement CH50 49 U/mL (>41); Cytoplasmic Ab (C-ANCA) <1:20 titer (Neg:<1:20); Deamidated Gliadin IgA 4 units (0-19); Deamidated Gliadin IgG 1 units (0-19); Endomysial Antibody IgA Negative (Negative); Gamma Globulin 0.7 g/dL (0.4-1.8); IMMUNOFIXATION RESULT,S Comment: (.); IgG, Quant 899 mg/dL (603-1613); Immunoglobulin A 264 mg/dL (61-437); Immunoglobulin E 8 IU/mL (6-495); Immunoglobulin G, Subclass 1 373 mg/dL (248-810); Immunoglobulin G, Subclass 2 377 mg/dL (130-555); Immunoglobulin G, Subclass 3 199 mg/dL (15-102); Immunoglobulin G, Subclass 4 31 mg/dL (2-96); Immunoglobulin M 40 mg/dL (15-143); PROEL- TOTAL PROTEIN 5.4 g/dL (6.0-8.5); Perinuclear Ab (P-ANCA) <1:20 titer (Neg:<1:20); t-Transglutaminase IgA <2 U/mL (0-3)
[2025-03-15 06:19] LABS: Anion Gap 9 (5-15); BUN 9 mg/dL (4-19); Calcium,Total 9.3 mg/dL (7.6-11.0); Chloride 105 mmol/L (98-108); Creatinine, Serum 0.68 mg/dL (0.70-1.20); EST Glomerular Filtration Rate 96 (>60); Estimated Creatinine Clearance 59.11 ml/min (50-250); Glucose 100 mg/dL (70-99); Potassium 3.3 mmol/L (3.3-5.1); Sodium Level 143 mmol/L (133-145)
[2025-03-15 06:58] VITALS: O2SAT 93
[2025-03-15 08:08] LABS: QNTFERON TB Mitogen Value 0.43 IU/mL (.); QNTFERON TB Nil Value 0 IU/mL (.); QNTFERON TB1+ Ag Value 0 IU/mL (.); QNTFERON TB2+ Ag Value 0 IU/mL (.); QNTIFERON TB Positive Criteria Indeterminate (Negative)
[2025-03-15 09:00] VITALS: O2SAT 96
[2025-03-15 09:01] VITALS: BP 131/80; PULSE 88; RESP 20; TEMP 36.3; O2SAT 97
--- NOTE | 2025-03-15 09:13 | PN.HOSP_ITS ---
Reason for Visit Reason for Visit: Diagnoses Acute posthemorrhagic anemia (03/06/25) Unspecified severe protein-calorie malnutrition (03/06/25) Unspecified protein-calorie malnutrition (03/06/25) Essential (primary) hypertension (03/06/25) Unspecified atrial fibrillation (03/06/25) Orthostatic hypotension (03/06/25) Chronic obstructive pulmonary disease, unspecified (03/06/25) Pleural effusion, not elsewhere classified (03/06/25) Unspecified intestinal obstruction, unspecified as to partial versus complete obstruction (03/06/25) Gastrointestinal hemorrhage, unspecified (03/06/25) Unspecified abnormal finding in specimens from other organs, systems and tissues (03/06/25) Personal history of other specified conditions (03/06/25) 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 NGT clamped. Objective Data Objective Data Vital Signs: Vital Signs Temp Pulse Resp BP Pulse Ox O2 Del Method O2 Flow Rate 36.3 C L 88 20 H 131/80 H 97 Nasal Cannula 2 03/15/25 09:01 03/15/25 09:01 03/15/25 09:01 03/15/25 09:01 03/15/25 09:01 03/15/25 09:01 03/15/25 09:01 FiO2 29 03/11/25 17:00 Oxygen Flow Rate (L/min) 2 Oxygen Delivery Method Nasal Cannula Weight: 53.2 kg Body Mass Index (BMI) 16.3 Intake & Output: Intake and Output for Last 24 Hours 03/13/25 03/14/25 03/15/25 23:59 23:59 23:59 Intake Total 1350 / 1350 3232.34 / 3232.34 50 / 50 Output Total 1150 / 1150 1325 / 1625 550 / 550 Balance 200 / 200 1907.34 / 1607.34 -500 / -500 Medical Nutrition Assessment Dietitian: Malnutrition Criteria Met Start: 03/07/25 15:56 Freq: Status: Active Protocol: Document 03/13/25 09:53 JORDAN (Rec: 03/13/25 09:54 SLA [id number]) Nutrition Malnutrition Evidence of Yes Malnutrition Exists Malnutrition (severe Acute Illness/Injury ): Evidenced By Suboptimal Energy Intake (Severe),Weight Loss (Severe), Physical Changes (Moderate) Intake Problem Inadequate Oral Intake Etiology related to altered GI function/ileus Signs/Symptoms as evidenced by NPO status Status Active Problem Clinical Problem Acute Disease or Injury Related Malnutrition Etiology severe protein-calorie malnutrition in the context of acute illness related to altered GI function and inability to take adequate energy/pro Signs/Symptoms as evidenced by current NPO, BMI 16.0, unintentional weight loss ~18% body weight x 9-10 months (less than 1 year time frame), muscle wasting/fat depletion noted in clavicle area, 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 Changes Will order ensure plus high protein tid w/ meals Consider supplemental nutrition support if unable to resume po diet within 2-3 days Lab / Micro Data 03/15/25 05:30 03/15/25 05:30 Labs: Laboratory Results - last 24 hr 03/10/25 19:00: Total Protein (PEP) 5.4 L, Globulin 3.2, Carcinoembryonic Ag 1.6, CA 19-9 Antigen 17, IgG Total 899, IgG1 373, IgG2 377, IgG3 199 H, IgG4 31, IgA 264, IgM 40, IgE 8, Immunofixation Screen Comment:, Albumin (MELITA) 2.2 L, Albumin/Globulin (MELITA) 0.7, Nangu-0-Ziqlrwwyh MELITA 0.5 H, Nxaji-8-Szrhexbxx MELITA 1.1 H, Beta-Globulins (MELITA) 0.9, Gamma Globulins (MELITA) 0.7, MELITA M-Javon Not Observed, MELITA Comments Comment, c-ANCA Antibody <1:20, Atypical p-ANCA <1:20, p- ANCA Antibody <1:20, Endomysial IgA Ab Negative, Tiss Transglutamin IgG 3, Tiss Transglutamin IgA <2, Anti-Gliadin IgG Ab 1, Anti-Gliadin IgA Ab 4, Complement C3 164, Complement C4 32, Tot Complement (CH50) 49, TB Test (QFT) Nil 0, TB Test (QFT) Mitogen 0.43, TB Test (QFT) Ag 1 0, TB Test (QFT) Ag 2 0, TB Test (QFT) Comment, TB Positive Criteria Indeterminate H 03/14/25 17:01: Potassium 4.0 03/15/25 05:30: WBC 6.7, RBC 3.09 L, Hgb 8.2 L, Hct 26.7 L, MCV 86.4, MCH 26.5 L , MCHC 30.7 L, RDW Std Deviation 55.5 H, RDW Coeff of Wilbert 17.7 H, Plt Count 328, MPV 9.7, Immature Gran % (Auto) 0.500, Neut % (Auto) 86.1 H, Lymph % (Auto) 7.4 L, [place] % (Auto) 4.4, Eos % (Auto) 1.4, Baso % (Auto) 0.2, Absolute Neuts (auto) 5.7, Absolute Lymphs (auto) 0.49 L, Nucleated RBC % 0, Sodium 143, Potassium 3.3, Chloride 105, Carbon Dioxide 29.0, Anion Gap 9, BUN 9, Creatinine 0.68 L, Estim Creat Clear Calc 59.11, Est GFR (MDRD) Non-Af 96, BUN/Creatinine Ratio 13.0, Glucose 100 H, Calcium 9.3 Micro: Microbiology 03/06/25 09:24 Stool Stool Occult Blood (DESHAUN) - Final Occult Blood Positive Physical Exam Const alert and no apparent distress HEENT HEENT Narrative: NGT in place. Resp normal respiratory effort, no retractions, no use of accessory muscles and clear to auscultation bilaterally Cardio regular rate, regular rhythm, S1 normal heart sound and S2 normal heart sound GI normal to inspection, nondistended, normoactive bowel sounds, soft to palpation, non-tender and non-distended Extremity Extremity Narrative: PICC in RUE. Neuro Sensorium / Orientation: awake and alert Assessment & Plan Assessment/Plan (1) Atrial fibrillation with RVR: PLAN: In NSR Cardiology following. Holding off on OAC given GIB. Follow up outpatient for evaluation for Watchman. on PRN metoprolol and dilt. (2) SBO (small bowel obstruction): PLAN: v Ileus, surgery favoring ileus. General surgery following. NGT back to suction. (3) GI bleed: PLAN: 2/2 MWT. EGD on 03/07 that showed the MWT and treated with an argon laser, erosive gastropathy. Hemoglobin stable (4) Pleural effusion: PLAN: Right sided pleural effusion. Thoracentesis 03/07 removed 390 cc of fluid. Consistent with transudative effusion. Repeat thoracentesis had been ordered. Given the relatively low amount of fluid removed on the , it was transudative, CXR on the showed a small right sided pleural effusion--will discontinue given the risks at this time out weigh the benefits. (5) ABLA (acute blood loss anemia): PLAN: Hg 11.3 on the . 2/2 GIB from MWT. Down to 7.3. No need for transfusion. Continue to monitor. (6) Protein calorie malnutrition: PLAN: Weight loss of 18kg since April 2024. Nutrition following. Currently NPO. Initiate TPN, discussed with nutrition. PLAN: Plan VTE prophylaxis with SCDs DW Dtr at bedside. Charges/Coding Visit Charges Inpatient E&M: 74027 Subs Hosp L2
[2025-03-15] MEDS: Pantoprazole Sodium 40 MG in 0.9% Normal Saline (100mL MB+) 100 ML 330 MG IV ×2 (10:31→20:26)
[2025-03-15] MEDS: Dext 5%-0.45% NS 1,000 ML 60 ML IV (10:31)
[2025-03-15] MEDS: Menthol/Lanolin/Calamine/Znox 113 GM Tube 1 APPLIC TOPICAL ×2 (10:32→20:26)
--- NOTE | 2025-03-15 14:44 | PCM.PN.SRG ---
Subjective Subjective The patient was evaluated this afternoon. He states that he is still passing a little flatus. No recent bowel movement. He had a small bowel follow-through completed today that was read as a partial small bowel obstruction although appears to have some gas within the colon. No new issues or complaints. Objective Data Objective Data Vital Signs: Vital Signs Temp Pulse Resp BP Pulse Ox O2 Del Method O2 Flow Rate 97.4 F L 88 20 H 131/80 H 97 Nasal Cannula 2 03/15/25 09:01 03/15/25 09:01 03/15/25 09:01 03/15/25 09:01 03/15/25 09:01 03/15/25 09:01 03/15/25 09:01 FiO2 29 03/11/25 17:00 Oxygen Flow Rate (L/min) 2 Oxygen Delivery Method Nasal Cannula Weight: 117 lb 4.575 oz Body Mass Index (BMI) 16.3 Intake & Output: Intake and Output for Last 24 Hours 03/13/25 03/14/25 03/15/25 23:59 23:59 23:59 Intake Total 1350 / 1350 3232.34 / 3232.34 1193 / 1193 Output Total 1150 / 1150 1325 / 1625 550 / 550 Balance 200 / 200 1907.34 / 1607.34 643 / 643 Medical Nutrition Assessment Dietitian: Malnutrition Criteria Met Start: 03/07/25 15:56 Freq: Status: Active Protocol: Document 03/13/25 09:53 SLA (Rec: 03/13/25 09:54 SLA [id number]) Nutrition Malnutrition Evidence of Yes Malnutrition Exists Malnutrition (severe Acute Illness/Injury ): Evidenced By Suboptimal Energy Intake (Severe),Weight Loss (Severe), Physical Changes (Moderate) Intake Problem Inadequate Oral Intake Etiology related to altered GI function/ileus Signs/Symptoms as evidenced by NPO status Status Active Problem Clinical Problem Acute Disease or Injury Related Malnutrition Etiology severe protein-calorie malnutrition in the context of acute illness related to altered GI function and inability to take adequate energy/pro Signs/Symptoms as evidenced by current NPO, BMI 16.0, unintentional weight loss ~18% body weight x 9-10 months (less than 1 year time frame), muscle wasting/fat depletion noted in clavicle area, 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 Changes Will order ensure plus high protein tid w/ meals Consider supplemental nutrition support if unable to resume po diet within 2-3 days Lab / Micro Data 03/15/25 05:30 03/15/25 05:30 Labs: Laboratory Results - last 24 hr 03/10/25 19:00: Total Protein (PEP) 5.4 L, Globulin 3.2, Carcinoembryonic Ag 1.6, CA 19-9 Antigen 17, IgG Total 899, IgG1 373, IgG2 377, IgG3 199 H, IgG4 31, IgA 264, IgM 40, IgE 8, Immunofixation Screen Comment:, Albumin (MELITA) 2.2 L, Albumin/Globulin (MELITA) 0.7, Umthw-9-Vvflzgzwm MELITA 0.5 H, Bnzxu-1-Lhnwxixlc MELITA 1.1 H, Beta-Globulins (MELITA) 0.9, Gamma Globulins (MELITA) 0.7, MELITA M-Javon Not Observed, MELITA Comments Comment, c-ANCA Antibody <1:20, Atypical p-ANCA <1:20, p-ANCA Antibody <1:20, Endomysial IgA Ab Negative, Tiss Transglutamin IgG 3, Tiss Transglutamin IgA <2, Anti-Gliadin IgG Ab 1, Anti-Gliadin IgA Ab 4, Complement C3 164, Complement C4 32, Tot Complement (CH50) 49, TB Test (QFT) Nil 0, TB Test (QFT) Mitogen 0.43, TB Test (QFT) Ag 1 0, TB Test (QFT) Ag 2 0, TB Test (QFT) Comment, TB Positive Criteria Indeterminate H 03/14/25 17:01: Potassium 4.0 03/15/25 05:30: WBC 6.7, RBC 3.09 L, Hgb 8.2 L, Hct 26.7 L, MCV 86.4, MCH 26.5 L, MCHC 30.7 L, RDW Std Deviation 55.5 H, RDW Coeff of Wilbert 17.7 H, Plt Count 328, MPV 9.7, Immature Gran % (Auto) 0.500, Neut % (Auto) 86.1 H, Lymph % (Auto) 7.4 L, [place] % (Auto) 4.4, Eos % (Auto) 1.4, Baso % (Auto) 0.2, Absolute Neuts (auto) 5.7, Absolute Lymphs (auto) 0.49 L, Nucleated RBC % 0, Sodium 143, Potassium 3.3, Chloride 105, Carbon Dioxide 29.0, Anion Gap 9, BUN 9, Creatinine 0.68 L, Estim Creat Clear Calc 59.11, Est GFR (MDRD) Non-Af 96, BUN/Creatinine Ratio 13.0, Glucose 100 H, Calcium 9.3 Micro: Microbiology 03/06/25 09:24 Stool Stool Occult Blood (DESHAUN) - Final Occult Blood Positive Radiography Diagnostic Testing: Radiology Impression Small Bowel X-Ray 03/14/25 09:00 IMPRESSION: Study is limited with faint opacification. Findings suggest a partial small bowel obstruction. Consider computed tomography of the abdomen for further evaluation if indicated. Reading Location: [place] [address] Physical Exam Const oriented x3 and no apparent distress GI GI Narrative: Abdomen soft and minimally distended. Assessment & Plan Assessment/Plan (1) SBO (small bowel obstruction): PLAN: Plan The patient is a 74-year-old male with persistent ileus versus partial small bowel obstruction. Patient with slow improvement. Will try another fleets enema today. Will keep NG tube to suction. Encourage ambulation. Charges/Coding Visit Charges Inpatient E&M: 81022 Subs Hosp L3
[2025-03-15] MEDS: Fleet Enema 133 ML RC (17:03)
[2025-03-15] MEDS: MULTIVITAMINS IV (17:15)
[2025-03-15] MEDS: TRACE ELEMENTS IV (17:15)
[2025-03-15] MEDS: [UNRECOGNIZED DRUG - OTHER] IV (17:15)
[2025-03-15] MEDS: 0.9% Saline Lock 10 ML Syringe IV (17:21)
[2025-03-15 17:43] VITALS: BP 131/66; PULSE 86; RESP 20; TEMP 36.4; O2SAT 97
[2025-03-15 18:31] LABS: Bedside Glucose 101 mg/dL (74-106)
[2025-03-15 20:25] VITALS: BP 127/71; PULSE 93; RESP 18; TEMP 36.8; O2SAT 97
[2025-03-16] VITALS (7 sets, daily range): BP systolic 115–141; BP diastolic 63–82; PULSE 73–87; RESP 16–18; TEMP 36.4–36.7; O2SAT 96–100; BMI 16.0
[2025-03-16 01:08] LABS: Bedside Glucose 128 mg/dL (74-106)
[2025-03-16] MEDS: Piperacil/Tazobactam 3.375 GM in 0.9% Normal Saline (50mL MB+) 50 ML IV ×3 (05:44→21:36)
[2025-03-16 06:03] LABS: Bedside Glucose 136 mg/dL (74-106)
[2025-03-16] MEDS: Ipratropium/Albuterol Sulfate 3 ML AMPUL.NEB INHALATION (07:35)
--- NOTE | 2025-03-16 07:57 | PN.SURG_ITS ---
Subjective Subjective Patient evaluated resting comfortably in bed. He denies any abdominal pain, nausea. He notes having two bowel movements yesterday and over night. He has also had enemas x 2. Patient states he overall is feeling better. Objective Data Objective Data Vital Signs: Vital Signs Temp Pulse Resp BP Pulse Ox O2 Del Method O2 Flow Rate 97.9 F 87 16 126/63 H 100 Nasal Cannula 2 03/16/25 03:00 03/16/25 07:35 03/16/25 07:35 03/16/25 03:00 03/16/25 03:00 03/16/25 03:00 03/16/25 03:00 FiO2 29 03/11/25 17:00 Oxygen Flow Rate (L/min) 2 Oxygen Delivery Method Nasal Cannula Weight: 114 lb 13.773 oz Body Mass Index (BMI) 16.0 Intake & Output: Intake and Output for Last 24 Hours 03/14/25 03/15/25 03/16/25 23:59 23:59 23:59 Intake Total 3232.34 / 3232.34 1900 / 1900 80 / 80 Output Total 1325 / 1625 3315 / 3315 450 / 450 Balance 1907.34 / 1607.34 -1415 / -1415 -370 / -370 Medical Nutrition Assessment Dietitian: Malnutrition Criteria Met Start: 03/07/25 15:56 Freq: Status: Active Protocol: Document 03/15/25 15:18 SB (Rec: 03/15/25 15:19 SB [id number]) Nutrition Malnutrition Evidence of Yes Malnutrition Exists Malnutrition (severe Chronic ): Evidenced By Suboptimal Energy Intake (Severe),Weight Loss (Severe), Physical Changes (Moderate) Intake Problem Inadequate Oral Intake Etiology related to altered GI function/ileus Signs/Symptoms as evidenced by NPO status x 6 days. Status Active Problem Clinical Problem Chronic Disease or Condition Related Malnutrition Etiology severe protein-calorie malnutrition in the context of acute illness related to altered GI function and inability to take adequate energy/pro Signs/Symptoms as evidenced by unintentional weight loss 22% body weight x 9-10 months, PO meeting less than 75% of estimated nutrition needs x 6 months, muscle wasting/ fat depletion noted in clavicle area, and NPO day 6. Status Active Problem Acute Disease or Injury Related Malnutrition Status Inactive Problem Recommendation Dietitian 1. Recommend advanced diet as tolerated to transitional Recommendations/ diet with goal of regular. Changes 2. Will order bag #1 of Clinimix-E of 1L of 8% AA/14% Dextrose at 42ml/hr to provided 798 calories, 140g dextrose, and 80g protein. Will advanced as tolerated. 3. Will order labs for phosphorus, magnesium, and triglycerides. 4. Will monitor for signs of refeeding syndrome due to prolonged NPO. Lab / Micro Data 03/15/25 05:30 03/15/25 05:30 Labs: Laboratory Results - last 24 hr 03/10/25 19:00: TB Test (QFT) Nil 0, TB Test (QFT) Mitogen 0.43, TB Test (QFT) Ag 1 0, TB Test (QFT) Ag 2 0, TB Test (QFT) Comment, TB Positive Criteria Indeterminate H 03/15/25 17:47: POC Glucose 101 03/16/25 00:49: POC Glucose 128 H 03/16/25 05:43: POC Glucose 136 H Micro: Microbiology 03/06/25 09:24 Stool Stool Occult Blood (DESHAUN) - Final Occult Blood Positive Radiography Diagnostic Testing: Radiology Impression Small Bowel X-Ray 03/14/25 09:00 IMPRESSION: Study is limited with faint opacification. Findings suggest a partial small bowel obstruction. Consider computed tomography of the abdomen for further evaluation if indicated. Reading Location: [place] [address] Physical Exam GI GI Narrative: Abdomen- soft, nontender, nondistended Assessment & Plan Assessment/Plan (1) SBO (small bowel obstruction): PLAN: I am following this patient in conjunction with Dr. Dawson. He has independently evaluated this patient. Labs pending Remove NG and start clears Continue TPN Keep patient upright while drinking clear liquids Encourage ambulation Soap suds enema today Will hold off on any further imaging unless patient symptoms change We will contnue to monitor this patient Charges/Coding Visit Charges Inpatient E&M: 69611 Subs Hosp L2
--- NOTE | 2025-03-16 08:27 | PN.HOSP_ITS ---
Reason for Visit Reason for Visit: Diagnoses Acute posthemorrhagic anemia (03/06/25) Unspecified severe protein-calorie malnutrition (03/06/25) Unspecified protein-calorie malnutrition (03/06/25) Essential (primary) hypertension (03/06/25) Unspecified atrial fibrillation (03/06/25) Orthostatic hypotension (03/06/25) Chronic obstructive pulmonary disease, unspecified (03/06/25) Pleural effusion, not elsewhere classified (03/06/25) Unspecified intestinal obstruction, unspecified as to partial versus complete obstruction (03/06/25) Gastrointestinal hemorrhage, unspecified (03/06/25) Unspecified abnormal finding in specimens from other organs, systems and tissues (03/06/25) Personal history of other specified conditions (03/06/25) 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 Objective Data Objective Data Vital Signs: Vital Signs Temp Pulse Resp BP Pulse Ox O2 Del Method O2 Flow Rate 36.6 C 87 16 126/63 H 100 Nasal Cannula 2 03/16/25 03:00 03/16/25 07:35 03/16/25 07:35 03/16/25 03:00 03/16/25 03:00 03/16/25 03:00 03/16/25 03:00 FiO2 29 03/11/25 17:00 Oxygen Flow Rate (L/min) 2 Oxygen Delivery Method Nasal Cannula Weight: 52.1 kg Body Mass Index (BMI) 16.0 Intake & Output: Intake and Output for Last 24 Hours 03/14/25 03/15/25 03/16/25 23:59 23:59 23:59 Intake Total 3232.34 / 3232.34 1900 / 1900 80 / 80 Output Total 1325 / 1625 3315 / 3315 450 / 450 Balance 1907.34 / 1607.34 -1415 / -1415 -370 / -370 Medical Nutrition Assessment Dietitian: Malnutrition Criteria Met Start: 03/07/25 15:56 Freq: Status: Active Protocol: Document 03/15/25 15:18 SB (Rec: 03/15/25 15:19 SB [id number]) Nutrition Malnutrition Evidence of Yes Malnutrition Exists Malnutrition (severe Chronic ): Evidenced By Suboptimal Energy Intake (Severe),Weight Loss (Severe), Physical Changes (Moderate) Intake Problem Inadequate Oral Intake Etiology related to altered GI function/ileus Signs/Symptoms as evidenced by NPO status x 6 days. Status Active Problem Clinical Problem Chronic Disease or Condition Related Malnutrition Etiology severe protein-calorie malnutrition in the context of acute illness related to altered GI function and inability to take adequate energy/pro Signs/Symptoms as evidenced by unintentional weight loss 22% body weight x 9-10 months, PO meeting less than 75% of estimated nutrition needs x 6 months, muscle wasting/ fat depletion noted in clavicle area, and NPO day 6. Status Active Problem Acute Disease or Injury Related Malnutrition Status Inactive Problem Recommendation Dietitian 1. Recommend advanced diet as tolerated to transitional Recommendations/ diet with goal of regular. Changes 2. Will order bag #1 of Clinimix-E of 1L of 8% AA/14% Dextrose at 42ml/hr to provided 798 calories, 140g dextrose, and 80g protein. Will advanced as tolerated. 3. Will order labs for phosphorus, magnesium, and triglycerides. 4. Will monitor for signs of refeeding syndrome due to prolonged NPO. Lab / Micro Data 03/16/25 10:02 03/16/25 10:02 Labs: Laboratory Results - last 24 hr 03/15/25 17:47: POC Glucose 101 03/16/25 00:49: POC Glucose 128 H 03/16/25 05:43: POC Glucose 136 H Micro: Microbiology 03/06/25 09:24 Stool Stool Occult Blood (DESHAUN) - Final Occult Blood Positive Radiography Diagnostic Testing: Radiology Impression Small Bowel X-Ray 03/14/25 09:00 IMPRESSION: Study is limited with faint opacification. Findings suggest a partial small bowel obstruction. Consider computed tomography of the abdomen for further evaluation if indicated. Reading Location: [place] [id number] Physical Exam Const alert and no apparent distress Constitutional Narrative: cachectic. afebrile. HEENT head/scalp atraumatic and moist oral mucous membranes Resp normal respiratory effort, no retractions, no use of accessory muscles and clear to auscultation bilaterally Cardio regular rate, regular rhythm, S1 normal heart sound and S2 normal heart sound GI normal to inspection, nondistended, normoactive bowel sounds, soft to palpation, non-tender and non-distended Assessment & Plan Assessment/Plan (1) Atrial fibrillation with RVR: PLAN: In NSR Cardiology following. Holding off on OAC given GIB. Follow up outpatient for evaluation for Watchman. on PRN metoprolol and dilt. (2) SBO (small bowel obstruction): PLAN: v Ileus, surgery favoring ileus. General surgery following. NGT removed 03/16 (3) GI bleed: PLAN: 2/2 MWT. EGD on 03/07 that showed the MWT and treated with an argon laser, erosive gastropathy. Hemoglobin stable (4) Pleural effusion: PLAN: Right sided pleural effusion. Thoracentesis 03/07 removed 390 cc of fluid. Consistent with transudative effusion. Repeat thoracentesis had been ordered. Given the relatively low amount of fluid removed on the , it was transudative, CXR on the showed a small right sided pleural effusion--will discontinue given the risks at this time out weigh the benefits. (5) ABLA (acute blood loss anemia): PLAN: Hg 11.3 on the . 2/2 GIB from MWT. Down to 7.3. No need for transfusion. Continue to monitor. (6) Protein calorie malnutrition: PLAN: Weight loss of 18kg since April 2024. Nutrition following. Now on clears. Will continue TPN for at least 1 more day. Discussed with nutrition. PLAN: Plan VTE prophylaxis with SCDs Charges/Coding Visit Charges Inpatient E&M: 76707 Subs Hosp L2
[2025-03-16 10:32] LABS: Absolute Lymphocyte Count 0.58 X10^3/uL (0.83-4.51); Absolute Neutrophil Count 5.8 X10^3/uL (2.0-7.7); Basophil# 0.01 X10^3/uL; Basophil% 0.1 % (0-1); Eosinophil# 0.05 X10^3/uL; Eosinophils% 0.7 % (0-5); Hematocrit 30.6 % (40-54); Hemoglobin 9.2 g/dL (13.0-16.5); Lymphocyte # 0.58 X10^3/ul (0.83-4.51); Lymphocyte % 8.5 % (19-41); Mean Corp Hgb Conc 30.1 g/dL (32-36); Mean Corpuscular Hgb 26.6 pg (27.0-32.0); Mean Corpuscular Volume 88.4 fL (80-94); Mean Platelet Vol. 9.7 fl (6.2-12.0); Monocyte# 0.34 X10^3/uL; NRBC Flagged by Analyzer 0 % (0-5); Neutrophil # 5.79 X10^3/uL (2.7-7.7); POSITIVE DIFFERENTIAL YES; Platelet Count 374 K/mm3 (150-450); RBC Distribution Width CV 17.6 % (11.6-14.6); RBC Distribution Width SD 56.7 fl (35.1-43.9); Red Blood Count 3.46 M/mm3 (4.6-6.2); White Blood Count 6.8 K/mm3 (4.4-11.0)
[2025-03-16] MEDS: Escitalopram Oxalate 10 MG Tablet PO (11:12)
[2025-03-16] MEDS: Pantoprazole Sodium 40 MG in 0.9% Normal Saline (100mL MB+) 100 ML 330 MG IV ×2 (11:12→20:47)
[2025-03-16] MEDS: Menthol/Lanolin/Calamine/Znox 113 GM Tube 1 APPLIC TOPICAL ×2 (11:13→21:36)
[2025-03-16 11:29] LABS: Anion Gap 10 (5-15); BUN 15 mg/dL (4-19); BUN/Creat Ratio 21.3 RATIO (10-20); Calcium,Total 9.1 mg/dL (7.6-11.0); Carbon Dioxide 25.7 mmol/L (21.0-32.0); Chloride 104 mmol/L (98-108); Creatinine, Serum 0.69 mg/dL (0.70-1.20); EST Glomerular Filtration Rate 96 (>60); Estimated Creatinine Clearance 57.89 ml/min (50-250); Glucose 132 mg/dL (70-99); Potassium 3.1 mmol/L (3.3-5.1); Sodium Level 140 mmol/L (133-145)
[2025-03-16 12:18] LABS: Bedside Glucose 109 mg/dL (74-106)
[2025-03-16] MEDS: [UNRECOGNIZED DRUG - OTHER] IV (17:11)
[2025-03-16] MEDS: TRACE ELEMENTS IV (17:11)
[2025-03-16] MEDS: MULTIVITAMINS IV (17:11)
[2025-03-16] MEDS: Tamsulosin HCl 0.4 MG Capsule 0.8 MG PO (17:13)
[2025-03-16 19:09] LABS: Bedside Glucose 98 mg/dL (74-106)
[2025-03-16] MEDS: Pravastatin 40 MG Tablet PO (20:47)
[2025-03-17 03:41] VITALS: BMI 15.7
[2025-03-17 04:30] VITALS: BP 122/67; PULSE 81; RESP 18; TEMP 36.2; O2SAT 98
[2025-03-17 04:58] LABS: Bedside Glucose 105 mg/dL (74-106)
[2025-03-17] MEDS: Piperacil/Tazobactam 3.375 GM in 0.9% Normal Saline (50mL MB+) 50 ML IV ×3 (06:18→21:53)
[2025-03-17 07:23] LABS: Absolute Lymphocyte Count 0.47 X10^3/uL (0.83-4.51); Absolute Neutrophil Count 4.7 X10^3/uL (2.0-7.7); Basophil# 0.01 X10^3/uL; Basophil% 0.2 % (0-1); Eosinophil# 0.05 X10^3/uL; Eosinophils% 0.9 % (0-5); Hemoglobin 7.7 g/dL (13.0-16.5); Lymphocyte # 0.47 X10^3/ul (0.83-4.51); Lymphocyte % 8.4 % (19-41); Mean Corp Hgb Conc 30.8 g/dL (32-36); Mean Corpuscular Hgb 26.4 pg (27.0-32.0); Mean Corpuscular Volume 85.6 fL (80-94); Mean Platelet Vol. 9.9 fl (6.2-12.0); Monocyte# 0.34 X10^3/uL; Monocyte% 6.1 % (0-10); NRBC Flagged by Analyzer 0 % (0-5); Neutrophil % 83.7 % (47-70); POSITIVE DIFFERENTIAL YES; Platelet Count 314 K/mm3 (150-450); RBC Distribution Width CV 17.7 % (11.6-14.6); Red Blood Count 2.92 M/mm3 (4.6-6.2); White Blood Count 5.6 K/mm3 (4.4-11.0)
[2025-03-17 08:26] LABS: ALB/GLOB Ratio 0.8 RATIO (0.9-2.4); AST(SGOT) 25 U/L (<=37); Alanine Aminotransfer ALT/SGPT 8 U/L (<=46); Albumin, Serum 2.4 g/dL (3.4-4.8); Alkaline Phosphatase 87 U/L (40-129); Anion Gap 8 (5-15); BUN 19 mg/dL (4-19); BUN/Creat Ratio 35.2 RATIO (10-20); Calcium,Total 8.6 mg/dL (7.6-11.0); Carbon Dioxide 25.6 mmol/L (21.0-32.0); Chloride 107 mmol/L (98-108); Creatinine, Serum 0.54 mg/dL (0.70-1.20); EST Glomerular Filtration Rate 103 (>60); Estimated Creatinine Clearance 56.89 ml/min (50-250); Globulin 2.9 g/dL (2.2-4.2); Glucose 116 mg/dL (70-99); Potassium 3.2 mmol/L (3.3-5.1); Protein, Total 5.2 g/dL (5.9-8.4); Sodium Level 141 mmol/L (133-145); Total Bilirubin 0.27 mg/dL (0.00-1.30)
--- NOTE | 2025-03-17 09:00 | PN.HOSP_ITS ---
Reason for Visit Reason for Visit: Diagnoses Acute posthemorrhagic anemia (03/06/25) Unspecified severe protein-calorie malnutrition (03/06/25) Unspecified protein-calorie malnutrition (03/06/25) Essential (primary) hypertension (03/06/25) Unspecified atrial fibrillation (03/06/25) Orthostatic hypotension (03/06/25) Chronic obstructive pulmonary disease, unspecified (03/06/25) Pleural effusion, not elsewhere classified (03/06/25) Unspecified intestinal obstruction, unspecified as to partial versus complete obstruction (03/06/25) Gastrointestinal hemorrhage, unspecified (03/06/25) Unspecified abnormal finding in specimens from other organs, systems and tissues (03/06/25) Personal history of other specified conditions (03/06/25) 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 Objective Data Objective Data Vital Signs: Vital Signs Temp Pulse Resp BP Pulse Ox O2 Del Method O2 Flow Rate 36.2 C L 81 18 122/67 H 98 Nasal Cannula 2 03/17/25 04:30 03/17/25 04:30 03/17/25 04:30 03/17/25 04:30 03/17/25 04:30 03/17/25 04:30 03/17/25 04:30 FiO2 29 03/11/25 17:00 Oxygen Flow Rate (L/min) 2 Oxygen Delivery Method Nasal Cannula Weight: 51.2 kg Body Mass Index (BMI) 15.7 Intake & Output: Intake and Output for Last 24 Hours 03/15/25 03/16/25 03/17/25 23:59 23:59 23:59 Intake Total 1930 / 1930 1676.8 / 1776.8 250 / 250 Output Total 3315 / 3315 1450 / 1750 300 / 300 Balance -1385 / -1385 226.8 / 26.8 -50 / -50 Medical Nutrition Assessment Dietitian: Malnutrition Criteria Met Start: 03/07/25 15:56 Freq: Status: Active Protocol: Document 03/15/25 15:18 SB (Rec: 03/15/25 15:19 SB [id number]) Nutrition Malnutrition Evidence of Yes Malnutrition Exists Malnutrition (severe Chronic ): Evidenced By Suboptimal Energy Intake (Severe),Weight Loss (Severe), Physical Changes (Moderate) Intake Problem Inadequate Oral Intake Etiology related to altered GI function/ileus Signs/Symptoms as evidenced by NPO status x 6 days. Status Active Problem Clinical Problem Chronic Disease or Condition Related Malnutrition Etiology severe protein-calorie malnutrition in the context of acute illness related to altered GI function and inability to take adequate energy/pro Signs/Symptoms as evidenced by unintentional weight loss 22% body weight x 9-10 months, PO meeting less than 75% of estimated nutrition needs x 6 months, muscle wasting/ fat depletion noted in clavicle area, and NPO day 6. Status Active Problem Acute Disease or Injury Related Malnutrition Status Inactive Problem Recommendation Dietitian 1. Recommend advanced diet as tolerated to transitional Recommendations/ diet with goal of regular. Changes 2. Will order bag #1 of Clinimix-E of 1L of 8% AA/14% Dextrose at 42ml/hr to provided 798 calories, 140g dextrose, and 80g protein. Will advanced as tolerated. 3. Will order labs for phosphorus, magnesium, and triglycerides. 4. Will monitor for signs of refeeding syndrome due to prolonged NPO. Lab / Micro Data 03/17/25 06:58 03/17/25 06:58 Labs: Laboratory Results - last 24 hr 03/16/25 10:02: WBC 6.8, RBC 3.46 L, Hgb 9.2 L, Hct 30.6 L, MCV 88.4, MCH 26.6 L , MCHC 30.1 L, RDW Std Deviation 56.7 H, RDW Coeff of Wilbert 17.6 H, Plt Count 374, MPV 9.7, Immature Gran % (Auto) 0.700, Neut % (Auto) 85.0 H, Lymph % (Auto) 8.5 L, Bureau % (Auto) 5.0, Eos % (Auto) 0.7, Baso % (Auto) 0.1, Absolute Neuts (auto) 5.8, Absolute Lymphs (auto) 0.58 L, Nucleated RBC % 0, Sodium 140, Potassium 3.1 L, Chloride 104, Carbon Dioxide 25.7, Anion Gap 10, BUN 15, Creatinine 0.69 L, Estim Creat Clear Calc 57.89, Est GFR (MDRD) Non-Af 96, BUN/Creatinine Ratio 21.3 H, Glucose 132 H, Calcium 9.1 03/16/25 11:07: POC Glucose 109 H 03/16/25 17:29: POC Glucose 98 06/06/25 04:30: POC Glucose 105 03/17/25 06:58: WBC 5.6, RBC 2.92 L, Hgb 7.7 L, Hct 25.0 L, MCV 85.6, MCH 26.4 L , MCHC 30.8 L, RDW Std Deviation 56.0 H, RDW Coeff of Wilbert 17.7 H, Plt Count 314, MPV 9.9, Immature Gran % (Auto) 0.700, Neut % (Auto) 83.7 H, Lymph % (Auto) 8.4 L, Bureau % (Auto) 6.1, Eos % (Auto) 0.9, Baso % (Auto) 0.2, Absolute Neuts (auto) 4.7, Absolute Lymphs (auto) 0.47 L, Nucleated RBC % 0, Sodium 141, Potassium 3.2 L, Chloride 107, Carbon Dioxide 25.6, Anion Gap 8, BUN 19, Creatinine 0.54 L, Estim Creat Clear Calc 56.89, Est GFR (MDRD) Non-Af 103, BUN/Creatinine Ratio 35.2 H, Glucose 116 H, Calcium 8.6, Phosphorus 2.0 L, Magnesium 2.0, Total Bilirubin 0.27, AST 25, ALT 8, Alkaline Phosphatase 87, Total Protein 5.2 L, A lbumin 2.4 L, Globulin 2.9, Albumin/Globulin Ratio 0.8 L Micro: Microbiology 03/06/25 09:24 Stool Stool Occult Blood (DESHAUN) - Final Occult Blood Positive Physical Exam Const alert and no apparent distress HEENT head/scalp atraumatic and moist oral mucous membranes Resp normal respiratory effort, no retractions, no use of accessory muscles and clear to auscultation bilaterally Cardio regular rate, regular rhythm, S1 normal heart sound and S2 normal heart sound GI normal to inspection, nondistended, normoactive bowel sounds, soft to palpation, non-tender and non-distended Extremity normal to inspection and full ROM Assessment & Plan Assessment/Plan (1) Atrial fibrillation with RVR: PLAN: In NSR Cardiology following. Holding off on OAC given GIB. Follow up outpatient for evaluation for Watchman. on PRN metoprolol and dilt. (2) SBO (small bowel obstruction): PLAN: v Ileus, surgery favoring ileus. General surgery following. NGT removed 03/16 (3) GI bleed: PLAN: 2/2 MWT. EGD on 03/07 that showed the MWT and treated with an argon laser, erosive gastropathy. Hemoglobin stable (4) Pleural effusion: PLAN: Right sided pleural effusion. Thoracentesis 03/07 removed 390 cc of fluid. Consistent with transudative effusion. Repeat thoracentesis had been ordered. Given the relatively low amount of fluid removed on the , it was transudative, CXR on the showed a small right sided pleural effusion--will discontinue given the risks at this time out weigh the benefits. (5) ABLA (acute blood loss anemia): PLAN: Hg 11.3 on the . 2/2 GIB from MWT. Down to 7.3. No need for transfusion. Continue to monitor. (6) Protein calorie malnutrition: PLAN: Weight loss of 18kg since April 2024. Nutrition following. Now on clears. Will continue TPN until eating more regularly. PLAN: Plan VTE prophylaxis with SCDs Charges/Coding Visit Charges Inpatient E&M: 08944 Subs Hosp L2
[2025-03-17 10:15] VITALS: BP 126/70; PULSE 73; RESP 18; TEMP 36.8; O2SAT 95
[2025-03-17] MEDS: Escitalopram Oxalate 10 MG Tablet PO (10:51)
[2025-03-17] MEDS: Menthol/Lanolin/Calamine/Znox 113 GM Tube 1 APPLIC TOPICAL ×2 (10:51→21:53)
[2025-03-17] MEDS: Polyethylene Glycol 3350 17 GM PACKET PO (10:52)
[2025-03-17] MEDS: Pantoprazole Sodium 40 MG in 0.9% Normal Saline (100mL MB+) 100 ML 330 MG IV ×2 (10:57→21:54)
--- NOTE | 2025-03-17 11:18 | PN.SURG_ITS ---
Subjective Subjective Patient seen on rounds earlier this morning. Patient denies any new issues or complaints. He states his abdomen feels okay. He does admit to flatus. He did have a bowel movement after an enema yesterday. He had advancement of his diet to clears however according to RN, patient is not taking much orally. He is on TPN for nutrition Objective Data Objective Data Vital Signs: Vital Signs Temp Pulse Resp BP Pulse Ox O2 Del Method O2 Flow Rate 98.2 F 73 18 126/70 H 95 Room Air 2 03/17/25 10:15 03/17/25 10:15 03/17/25 10:15 03/17/25 10:15 03/17/25 10:15 03/17/25 10:37 03/17/25 04:30 FiO2 29 03/11/25 17:00 Oxygen Flow Rate (L/min) 2 Oxygen Delivery Method Room Air Weight: 112 lb 14.027 oz Body Mass Index (BMI) 15.7 Intake & Output: Intake and Output for Last 24 Hours 03/15/25 03/16/25 03/17/25 23:59 23:59 23:59 Intake Total 1930 / 1930 1676.8 / 1776.8 300 / 300 Output Total 3315 / 3315 1450 / 1750 300 / 300 Balance -1385 / -1385 226.8 / 26.8 0 / 0 Medical Nutrition Assessment Dietitian: Malnutrition Criteria Met Start: 03/07/25 15:56 Freq: Status: Active Protocol: Document 03/15/25 15:18 SB (Rec: 03/15/25 15:19 SB [id number]) Nutrition Malnutrition Evidence of Yes Malnutrition Exists Malnutrition (severe Chronic ): Evidenced By Suboptimal Energy Intake (Severe),Weight Loss (Severe), Physical Changes (Moderate) Intake Problem Inadequate Oral Intake Etiology related to altered GI function/ileus Signs/Symptoms as evidenced by NPO status x 6 days. Status Active Problem Clinical Problem Chronic Disease or Condition Related Malnutrition Etiology severe protein-calorie malnutrition in the context of acute illness related to altered GI function and inability to take adequate energy/pro Signs/Symptoms as evidenced by unintentional weight loss 22% body weight x 9-10 months, PO meeting less than 75% of estimated nutrition needs x 6 months, muscle wasting/ fat depletion noted in clavicle area, and NPO day 6. Status Active Problem Acute Disease or Injury Related Malnutrition Status Inactive Problem Recommendation Dietitian 1. Recommend advanced diet as tolerated to transitional Recommendations/ diet with goal of regular. Changes 2. Will order bag #1 of Clinimix-E of 1L of 8% AA/14% Dextrose at 42ml/hr to provided 798 calories, 140g dextrose, and 80g protein. Will advanced as tolerated. 3. Will order labs for phosphorus, magnesium, and triglycerides. 4. Will monitor for signs of refeeding syndrome due to prolonged NPO. Lab / Micro Data 03/17/25 06:58 03/17/25 06:58 Labs: Laboratory Results - last 24 hr 03/16/25 10:02: Sodium 140, Potassium 3.1 L, Chloride 104, Carbon Dioxide 25.7, Anion Gap 10, BUN 15, Creatinine 0.69 L, Estim Creat Clear Calc 57.89, Est GFR (MDRD) Non-Af 96, BUN/Creatinine Ratio 21.3 H, Glucose 132 H, Calcium 9.1 03/16/25 11:07: POC Glucose 109 H 03/16/25 17:29: POC Glucose 98 03/17/25 04:30: POC Glucose 105 03/17/25 06:58: WBC 5.6, RBC 2.92 L, Hgb 7.7 L, Hct 25.0 L, MCV 85.6, MCH 26.4 L , MCHC 30.8 L, RDW Std Deviation 56.0 H, RDW Coeff of Wilbert 17.7 H, Plt Count 314, MPV 9.9, Immature Gran % (Auto) 0.700, Neut % (Auto) 83.7 H, Lymph % (Auto) 8.4 L, [place] % (Auto) 6.1, Eos % (Auto) 0.9, Baso % (Auto) 0.2, Absolute Neuts (auto) 4.7, Absolute Lymphs (auto) 0.47 L, Nucleated RBC % 0, Sodium 141, Potassium 3.2 L, Chloride 107, Carbon Dioxide 25.6, Anion Gap 8, BUN 19, Creatinine 0.54 L, Estim Creat Clear Calc 56.89, Est GFR (MDRD) Non-Af 103, BUN/Creatinine Ratio 35.2 H, Glucose 116 H, Calcium 8.6, Phosphorus 2.0 L, Magnesium 2.0, Total Bilirubin 0.27, AST 25, ALT 8, Alkaline Phosphatase 87, Total Protein 5.2 L, A lbumin 2.4 L, Globulin 2.9, Albumin/Globulin Ratio 0.8 L Micro: Microbiology 03/06/25 09:24 Stool Stool Occult Blood (DESHAUN) - Final Occult Blood Positive Physical Exam Narrative He is alert and oriented x 3. He is in no acute distress. Head is normocephalic and atraumatic. Abdomen is soft and nontender. Minimal if any distention. Assessment & Plan Assessment/Plan (1) SBO (small bowel obstruction): PLAN: Plan The patient is a 74-year-old male with partial small bowel obstruction versus prolonged ileus. Per GI, ileus may be related to medication. Patient exhibiting some bowel function by way of passage of flatus and occasional bowel movement but is typically stimulated by enema. Diet was advanced to clears yesterday and NG tube was removed. His oral intake has been minimal per nursing report. He is on TPN for nutrition. Would recommend slow advancement of diet as it is clinically appropriate. Would recommend continuing him on clears for now. Will continue to follow. Dr. Friedman to cover for me until March 21. Charges/Coding Visit Charges Inpatient E&M: 14200 Subs Hosp L2
[2025-03-17 12:13] LABS: Bedside Glucose 107 mg/dL (74-106)
[2025-03-17 13:15] VITALS: O2SAT 95
--- NOTE | 2025-03-17 15:09 | CASEMGMT ---
Patient could possibly be ready for discharge over the weekend. Patient is from TCU. SW notified Elin in TCU that patient may be ready over the weekend. Their is a different physician covering TCU and she does not feel patient is medically ready for discharge to TCU. He will be re-looked at on Thursday. Aleida Hernandez YACHT RIGGER WILLIS
--- NOTE | 2025-03-17 15:13 | CASEMGMT ---
Patient could possibly be ready for discharge over the weekend. Patient is from TCU. SW notified Elin in TCU that patient may be ready over the weekend. There is a different physician covering TCU and this physician does not feel patient is medically ready for discharge to TCU. Patient will be re-looked at on Thursday. Aleida PEDRO
[2025-03-17 15:50] VITALS: BP 128/75; PULSE 77; RESP 18; TEMP 36.7; O2SAT 98
[2025-03-17] MEDS: Fat Emulsions 20% 250 ML IV (16:00)
[2025-03-17] MEDS: TRACE ELEMENTS IV (16:00)
[2025-03-17] MEDS: MULTIVITAMINS IV (16:00)
[2025-03-17] MEDS: [UNRECOGNIZED DRUG - OTHER] IV (16:00)
[2025-03-17] MEDS: Tamsulosin HCl 0.4 MG Capsule 0.8 MG PO (16:13)
[2025-03-17 19:37] VITALS: O2SAT 99
[2025-03-17 21:48] VITALS: BP 110/59; PULSE 76; RESP 18; TEMP 36.7; O2SAT 100
[2025-03-17] MEDS: Pravastatin 40 MG Tablet PO (21:53)
[2025-03-17] MEDS: 0.9% Saline Lock 10 ML Syringe IV (21:53)
[2025-03-18 01:37] VITALS: O2SAT 99
[2025-03-18 02:10] LABS: Bedside Glucose 115 mg/dL (74-106)
[2025-03-18 04:04] VITALS: BP 120/69; PULSE 77; RESP 18; TEMP 36.6; O2SAT 99
[2025-03-18 05:14] VITALS: BMI 16.1
[2025-03-18] MEDS: Piperacil/Tazobactam 3.375 GM in 0.9% Normal Saline (50mL MB+) 50 ML IV ×3 (05:41→21:47)
[2025-03-18 06:08] LABS: Bedside Glucose 123 mg/dL (74-106)
[2025-03-18 06:48] LABS: ALB/GLOB Ratio 0.8 RATIO (0.9-2.4); AST(SGOT) 18 U/L (<=37); Alanine Aminotransfer ALT/SGPT 7 U/L (<=46); Albumin, Serum 2.3 g/dL (3.4-4.8); Alkaline Phosphatase 72 U/L (40-129); Anion Gap 8 (5-15); BUN 20 mg/dL (4-19); BUN/Creat Ratio 39.6 RATIO (10-20); Calcium,Total 8.6 mg/dL (7.6-11.0); Carbon Dioxide 23.6 mmol/L (21.0-32.0); Chloride 107 mmol/L (98-108); EST Glomerular Filtration Rate 106 (>60); Estimated Creatinine Clearance 58.33 ml/min (50-250); Glucose 124 mg/dL (70-99); Magnesium 2.1 mg/dL (1.5-2.2); Potassium 3.1 mmol/L (3.3-5.1); Protein, Total 5.3 g/dL (5.9-8.4); Sodium Level 138 mmol/L (133-145); Total Bilirubin 0.19 mg/dL (0.00-1.30)
[2025-03-18] MEDS: Menthol/Lanolin/Calamine/Znox 113 GM Tube 1 APPLIC TOPICAL ×2 (08:58→21:47)
[2025-03-18] MEDS: Pantoprazole Sodium 40 MG in 0.9% Normal Saline (100mL MB+) 100 ML 330 MG IV ×2 (08:59→21:47)
--- NOTE | 2025-03-18 09:07 | PN.HOSP_ITS ---
Reason for Visit Reason for Visit: Diagnoses Acute posthemorrhagic anemia (03/06/25) Unspecified severe protein-calorie malnutrition (03/06/25) Unspecified protein-calorie malnutrition (03/06/25) Essential (primary) hypertension (03/06/25) Unspecified atrial fibrillation (03/06/25) Orthostatic hypotension (03/06/25) Chronic obstructive pulmonary disease, unspecified (03/06/25) Pleural effusion, not elsewhere classified (03/06/25) Unspecified intestinal obstruction, unspecified as to partial versus complete obstruction (03/06/25) Gastrointestinal hemorrhage, unspecified (03/06/25) Unspecified abnormal finding in specimens from other organs, systems and tissues (03/06/25) Personal history of other specified conditions (03/06/25) 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 Objective Data Objective Data Vital Signs: Vital Signs Temp Pulse Resp BP Pulse Ox O2 Del Method O2 Flow Rate 36.6 C 77 18 120/69 99 Nasal Cannula 2 03/18/25 04:04 03/18/25 04:04 03/18/25 04:04 03/18/25 04:04 03/18/25 04:04 03/18/25 08:43 03/18/25 08:43 FiO2 29 03/11/25 17:00 Oxygen Flow Rate (L/min) 2 Oxygen Delivery Method Nasal Cannula Weight: 52.5 kg Body Mass Index (BMI) 16.1 Intake & Output: Intake and Output for Last 24 Hours 03/16/25 03/17/25 03/18/25 23:59 23:59 23:59 Intake Total 1676.8 / 1776.8 2041.2 / 2141.2 400 / 400 Output Total 1450 / 1750 950 / 1350 700 / 700 Balance 226.8 / 26.8 1091.2 / 791.2 -300 / -300 Medical Nutrition Assessment Dietitian: Malnutrition Criteria Met Start: 03/07/25 15:56 Freq: Status: Active Protocol: Document 03/15/25 15:18 SB (Rec: 03/15/25 15:19 SB [id number]) Nutrition Malnutrition Evidence of Yes Malnutrition Exists Malnutrition (severe Chronic ): Evidenced By Suboptimal Energy Intake (Severe),Weight Loss (Severe), Physical Changes (Moderate) Intake Problem Inadequate Oral Intake Etiology related to altered GI function/ileus Signs/Symptoms as evidenced by NPO status x 6 days. Status Active Problem Clinical Problem Chronic Disease or Condition Related Malnutrition Etiology severe protein-calorie malnutrition in the context of acute illness related to altered GI function and inability to take adequate energy/pro Signs/Symptoms as evidenced by unintentional weight loss 22% body weight x 9-10 months, PO meeting less than 75% of estimated nutrition needs x 6 months, muscle wasting/ fat depletion noted in clavicle area, and NPO day 6. Status Active Problem Acute Disease or Injury Related Malnutrition Status Inactive Problem Recommendation Dietitian 1. Recommend advanced diet as tolerated to transitional Recommendations/ diet with goal of regular. Changes 2. Will order bag #1 of Clinimix-E of 1L of 8% AA/14% Dextrose at 42ml/hr to provided 798 calories, 140g dextrose, and 80g protein. Will advanced as tolerated. 3. Will order labs for phosphorus, magnesium, and triglycerides. 4. Will monitor for signs of refeeding syndrome due to prolonged NPO. Lab / Micro Data 03/17/25 06:58 03/18/25 06:00 Labs: Laboratory Results - last 24 hr 03/10/25 19:00: IgG Not Reportable 03/17/25 11:49: POC Glucose 107 H 03/18/25 01:52: POC Glucose 115 H 03/18/25 05:39: POC Glucose 123 H 03/18/25 06:00: Sodium 138, Potassium 3.1 L, Chloride 107, Carbon Dioxide 23.6, Anion Gap 8, BUN 20 H, Creatinine 0.50 L, Estim Creat Clear Calc 58.33, Est GFR (MDRD) Non-Af 106, BUN/Creatinine Ratio 39.6 H, Glucose 124 H, Calcium 8.6, P hosphorus 2.0 L, Magnesium 2.1, Total Bilirubin 0.19, AST 18, ALT 7, Alkaline Phosphatase 72, Total Protein 5.3 L, Albumin 2.3 L, Globulin 3.0, A lbumin/Globulin Ratio 0.8 L Micro: Microbiology 03/06/25 09:24 Stool Stool Occult Blood (DESHAUN) - Final Occult Blood Positive Physical Exam Const alert and no apparent distress HEENT head/scalp atraumatic and moist oral mucous membranes Resp normal respiratory effort, no retractions, no use of accessory muscles and clear to auscultation bilaterally Cardio regular rate, regular rhythm, S1 normal heart sound and S2 normal heart sound GI GI Narrative: distended. tender. high-pitched bowel sounds. Assessment & Plan Assessment/Plan (1) Atrial fibrillation with RVR: PLAN: In NSR Cardiology following. Holding off on OAC given GIB. Follow up outpatient for evaluation for Watchman. on PRN metoprolol and dilt. (2) SBO (small bowel obstruction): PLAN: recurrent General surgery following. NGT removed 03/16. To be replaced today. (3) GI bleed: PLAN: 2/ MWT. EGD on 03/07 that showed the MWT and treated with an argon laser, erosive gastropathy. Hemoglobin stable (4) Pleural effusion: PLAN: Right sided pleural effusion. Thoracentesis 03/07 removed 390 cc of fluid. Consistent with transudative effusion. Repeat thoracentesis had been ordered. Given the relatively low amount of fluid removed on the , it was transudative, CXR on the showed a small right sided pleural effusion--will discontinue given the risks at this time out weigh the benefits. Previously in April, it had shown mesothelial cells. Pathology was not sent this admission. Previously had been told by oncology that he did not have mesothelioma. Recommended outpt pulmonary follow up. (5) ABLA (acute blood loss anemia): PLAN: Hg 11.3 on the . 2/2 GIB from MWT. Down to 7.3. No need for transfusion. Continue to monitor. (6) Protein calorie malnutrition: PLAN: Weight loss of 18kg since April 2024. Continue w TPN until eating more regularly. PLAN: Plan VTE prophylaxis with SCDs DW family at bedside. Charges/Coding Visit Charges Inpatient E&M: 48963 Subs Hosp L2
[2025-03-18] MEDS: Escitalopram Oxalate 10 MG Tablet PO (09:09)
[2025-03-18] MEDS: Polyethylene Glycol 3350 17 GM PACKET PO (09:09)
[2025-03-18] MEDS: Potassium Chloride 10mEq/100mL 10 MEQ/100 ML IV.SOLN. 100 MEQ IV BOLUS ×4 (09:34→15:27)
[2025-03-18 10:00] VITALS: BP 113/65; PULSE 80; RESP 18; TEMP 36.6; O2SAT 97
--- NOTE | 2025-03-18 11:03 | PN.SURG_ITS ---
Subjective Subjective Patient is found resting in bed. He states that he is mildly nauseous. Because of this he has not been able to take much of his breakfast tray. He otherwise confirms that he is passing flatus and has no abdominal discomfort at rest. Objective Data Objective Data Vital Signs: Vital Signs Temp Pulse Resp BP Pulse Ox O2 Del Method O2 Flow Rate 97.8 F 77 18 120/69 99 Nasal Cannula 2 03/18/25 04:04 03/18/25 04:04 03/18/25 04:04 03/18/25 04:04 03/18/25 04:04 03/18/25 08:43 03/18/25 08:43 FiO2 29 03/11/25 17:00 Oxygen Flow Rate (L/min) 2 Oxygen Delivery Method Nasal Cannula Weight: 115 lb 11.883 oz Body Mass Index (BMI) 16.1 Intake & Output: Intake and Output for Last 24 Hours 03/16/25 03/17/25 03/18/25 23:59 23:59 23:59 Intake Total 1676.8 / 1776.8 2041.2 / 2141.2 500 / 500 Output Total 1450 / 1750 950 / 1350 700 / 700 Balance 226.8 / 26.8 1091.2 / 791.2 -200 / -200 Medical Nutrition Assessment Dietitian: Malnutrition Criteria Met Start: 03/07/25 15:56 Freq: Status: Active Protocol: Document 03/18/25 09:31 JORDAN (Rec: 03/18/25 09:31 SLA [id number]) Nutrition Malnutrition Evidence of Yes Malnutrition Exists Malnutrition (severe Chronic ): Evidenced By Suboptimal Energy Intake (Severe),Weight Loss (Severe), Physical Changes (Moderate) Intake Problem Inadequate Oral Intake Status Inactive Problem Clinical Problem Chronic Disease or Condition Related Malnutrition Etiology severe protein-calorie malnutrition in the context of acute illness related to altered GI function and inability to take adequate energy/pro Signs/Symptoms as evidenced by 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 BMI 16.1 Status Active Problem Acute Disease or Injury Related Malnutrition Status Inactive Problem Recommendation Dietitian 1. Recommend advanced diet as tolerated to transitional Recommendations/ diet with goal of regular. Continue ONS w/ meals for Changes increased nutrition if consumed. 2. Will order bag #4: Clinimix E- 1.5L of 8% AA/14% Dextrose at 63ml/hr 3. Will monitor for signs of refeeding syndrome due to prolonged NPO. Lab / Micro Data 03/17/25 06:58 03/18/25 06:00 Labs: Laboratory Results - last 24 hr 03/10/25 19:00: IgG Not Reportable 03/17/25 11:49: POC Glucose 107 H 03/18/25 01:52: POC Glucose 115 H 03/18/25 05:39: POC Glucose 123 H 03/18/25 06:00: Sodium 138, Potassium 3.1 L, Chloride 107, Carbon Dioxide 23.6, Anion Gap 8, BUN 20 H, Creatinine 0.50 L, Estim Creat Clear Calc 58.33, Est GFR (MDRD) Non-Af 106, BUN/Creatinine Ratio 39.6 H, Glucose 124 H, Calcium 8.6, P hosphorus 2.0 L, Magnesium 2.1, Total Bilirubin 0.19, AST 18, ALT 7, Alkaline Phosphatase 72, Total Protein 5.3 L, Albumin 2.3 L, Globulin 3.0, A lbumin/Globulin Ratio 0.8 L Micro: Microbiology 03/06/25 09:24 Stool Stool Occult Blood (DESHAUN) - Final Occult Blood Positive Physical Exam Const oriented x3 and no apparent distress Resp normal respiratory effort Resp Narrative: Nasal cannula in place GI GI Narrative: Mild distention with slight tympany on percussion of the left abdominal quadrants. Patient denies feeling any bloatedness. He denies tenderness with palpation of all 4 quadrants. Assessment & Plan Assessment/Plan (1) SBO (small bowel obstruction): PLAN: Plan The patient is a 74-year-old male with partial small bowel obstruction versus prolonged ileus. Patient continues to exhibit some bowel function by way of passage of flatus and occasional bowel movement. He remains on a clear liquid diet with minimal intake due to nausea. He is on TPN for nutrition. I have ordered a KUB as I perceived some slightly increased distention from his exam that I performed earlier this week. Will wait those results to determine if there is increased air for the upper GI or lower GI portions of the GI tract. For now would not make any dietary changes but have made electrolyte replacements. Andres Friedman MD General Surgery Endocrine Surgery Pager: [facility] [place] [facility] [address] [place] [address], [facility], [address] [place] [address] Office: [phone] Charges/Coding Visit Charges Inpatient E&M: 92483 Subs Hosp L2
[2025-03-18 11:58] LABS: Bedside Glucose 112 mg/dL (74-106)
--- NOTE | 2025-03-18 12:05 | RAD_ITS ---
PROCEDURE: ABDOMEN SINGLE VIEW (PORTABLE) 03/18/2025 REASON FOR EXAM: TYMPANY ON L W MOD DISTENTION TECHNIQUE: Single view abdomen. COMPARISON: 03/14/2020 abdomen radiograph FINDINGS: Bowel gas: [id number] gas distention of small bowel loops is seen to the left of midline including left upper quadrant. Differential air-fluid levels appear to be forming on the semi-upright film. Calcifications: No definitely worrisome calcifications appreciated Bones: Unremarkable Other: RAD/Abdomen Single View (Portable) IMPRESSION: Findings are suspect for small bowel obstruction. Correlate clinically. Reading Location: [facility]
[2025-03-18 16:00] VITALS: BP 112/46; PULSE 79; RESP 18; TEMP 36.3; O2SAT 95
[2025-03-18] MEDS: TPN - Clinimix E 8%-14% Soln 2,000 ML with Multivitamins 10 ML, Trace Elements 1 ML, Fo... 63 ML IV (16:08)
--- NOTE | 2025-03-18 16:20 | RAD_ITS ---
PROCEDURE: ABDOMEN SINGLE VIEW (PORTABLE) 03/18/2025 REASON FOR EXAM: VERIFY PLACEMENT OF NG TECHNIQUE: Single view abdomen. COMPARISON: Abdominal radiographs earlier same day. FINDINGS: Support devices: Interval gastric tube with side hole and tip overlying the expected region of the stomach. Partially visualized aorto bi-iliac grafting. Bowel gas: Persistent, partially visualized distention of the small bowel loops within the left upper quadrant/midline. Bones: There are degenerative changes of the spine. Other: Probable right lower lung atelectasis/scarring. Probable small right pleural effusion. RAD/Abdomen Single View (Portable) IMPRESSION: 1. Interval gastric tube placement as described. 2. Persistent dilation of the visualized left upper quadrant/midline bowel loop s. 3. Partially visualized probable small right pleural effusion. Reading Location: [id number]
[2025-03-18 17:51] LABS: Bedside Glucose 119 mg/dL (74-106)
[2025-03-18] MEDS: Potassium Phosphate 15 MM in 0.9% Normal Saline (250mL Bag) 250 ML 125 MM IV (17:56)
[2025-03-18 21:45] VITALS: BP 113/66; PULSE 79; RESP 18; TEMP 37; O2SAT 96
[2025-03-19] VITALS (8 sets, daily range): BP systolic 94–126; BP diastolic 54–64; PULSE 68–87; RESP 16–18; TEMP 36.4–36.8; O2SAT 94–99; BMI 16.4
[2025-03-19 00:02] LABS: Bedside Glucose 124 mg/dL (74-106)
[2025-03-19 05:28] LABS: ALB/GLOB Ratio 0.8 RATIO (0.9-2.4); AST(SGOT) 19 U/L (<=37); Alanine Aminotransfer ALT/SGPT 7 U/L (<=46); Albumin, Serum 2.4 g/dL (3.4-4.8); Alkaline Phosphatase 88 U/L (40-129); Anion Gap 9 (5-15); BUN 24 mg/dL (4-19); Calcium,Total 8.8 mg/dL (7.6-11.0); Carbon Dioxide 22.3 mmol/L (21.0-32.0); Chloride 108 mmol/L (98-108); Creatinine, Serum 0.54 mg/dL (0.70-1.20); EST Glomerular Filtration Rate 104 (>60); Estimated Creatinine Clearance 58.33 ml/min (50-250); Globulin 3.1 g/dL (2.2-4.2); Glucose 128 mg/dL (70-99); Magnesium 2.1 mg/dL (1.5-2.2); Phosphorus 2.6 mg/dL (2.7-4.5); Protein, Total 5.5 g/dL (5.9-8.4); Sodium Level 140 mmol/L (133-145); Total Bilirubin 0.37 mg/dL (0.00-1.30)
[2025-03-19] MEDS: Piperacil/Tazobactam 3.375 GM in 0.9% Normal Saline (50mL MB+) 50 ML IV ×3 (06:10→21:37)
[2025-03-19 07:00] LABS: Bedside Glucose 123 mg/dL (74-106)
[2025-03-19] MEDS: Escitalopram Oxalate 10 MG Tablet PO (08:33)
[2025-03-19] MEDS: Polyethylene Glycol 3350 17 GM PACKET PO (08:33)
[2025-03-19] MEDS: Menthol/Lanolin/Calamine/Znox 113 GM Tube 1 APPLIC TOPICAL ×2 (08:33→21:35)
[2025-03-19] MEDS: 0.9% Saline Lock 10 ML Syringe IV ×3 (08:40→15:40)
[2025-03-19] MEDS: Pantoprazole Sodium 40 MG in 0.9% Normal Saline (100mL MB+) 100 ML 330 MG IV ×2 (08:41→21:36)
--- NOTE | 2025-03-19 09:03 | PN.SURG_ITS ---
Subjective Subjective Patient seen and examined during AM rounds. He is found somewhat scrunched in his bed but states that his abdominal discomfort is improved, he has no nausea, and that he feels like his abdomen is softer. He also reports that he has passed flatus this morning. Objective Data Objective Data Vital Signs: Vital Signs Temp Pulse Resp BP Pulse Ox O2 Del Method O2 Flow Rate 97.6 F L 77 16 126/64 H 98 Room Air 2 03/19/25 08:28 03/19/25 08:28 03/19/25 08:28 03/19/25 08:28 03/19/25 08:28 03/19/25 08:28 03/18/25 17:15 FiO2 29 03/11/25 17:00 Oxygen Flow Rate (L/min) 2 Oxygen Delivery Method Room Air Weight: 117 lb 8.102 oz Body Mass Index (BMI) 16.4 Intake & Output: Intake and Output for Last 24 Hours 03/17/25 03/18/25 03/19/25 23:59 23:59 23:59 Intake Total 2041.2 / 2141.2 2546.2 / 2576.2 110 / 110 Output Total 950 / 1350 2150 / 2750 1400 / 1400 Balance 1091.2 / 791.2 396.2 / -173.8 -1290 / -1290 Medical Nutrition Assessment Dietitian: Malnutrition Criteria Met Start: 03/07/25 15:56 Freq: Status: Active Protocol: Document 03/18/25 09:31 SLA (Rec: 03/18/25 09:31 SLA [id number]) Nutrition Malnutrition Evidence of Yes Malnutrition Exists Malnutrition (severe Chronic ): Evidenced By Suboptimal Energy Intake (Severe),Weight Loss (Severe), Physical Changes (Moderate) Intake Problem Inadequate Oral Intake Status Inactive Problem Clinical Problem Chronic Disease or Condition Related Malnutrition Etiology severe protein-calorie malnutrition in the context of acute illness related to altered GI function and inability to take adequate energy/pro Signs/Symptoms as evidenced by 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 BMI 16.1 Status Active Problem Acute Disease or Injury Related Malnutrition Status Inactive Problem Recommendation Dietitian 1. Recommend advanced diet as tolerated to transitional Recommendations/ diet with goal of regular. Continue ONS w/ meals for Changes increased nutrition if consumed. 2. Will order bag #4: Clinimix E- 1.5L of 8% AA/14% Dextrose at 63ml/hr 3. Will monitor for signs of refeeding syndrome due to prolonged NPO. Lab / Micro Data 03/17/25 06:58 03/19/25 04:46 Labs: Laboratory Results - last 24 hr 03/18/25 11:26: POC Glucose 112 H 03/18/25 17:09: POC Glucose 119 H 03/18/25 23:30: POC Glucose 124 H 03/19/25 04:46: Sodium 140, Potassium 4.0, Chloride 108, Carbon Dioxide 22.3, Anion Gap 9, BUN 24 H, Creatinine 0.54 L, Estim Creat Clear Calc 58.33, Est GFR (MDRD) Non-Af 104, BUN/Creatinine Ratio 44.0 H, Glucose 128 H, Calcium 8.8, P hosphorus 2.6 L, Magnesium 2.1, Total Bilirubin 0.37, AST 19, ALT 7, Alkaline Phosphatase 88, Total Protein 5.5 L, Albumin 2.4 L, Globulin 3.1, A lbumin/Globulin Ratio 0.8 L 03/19/25 06:12: POC Glucose 123 H Micro: Microbiology 03/06/25 09:24 Stool Stool Occult Blood (DESHAUN) - Final Occult Blood Positive Radiography Diagnostic Testing: Radiology Impression KUB X-Ray 03/18/25 12:05 IMPRESSION: Findings are suspect for small bowel obstruction. Correlate clinically. Reading Location[facility] KUB X-Ray 03/18/25 16:20 IMPRESSION: 1. Interval gastric tube placement as described. 2. Persistent dilation of the visualized left upper quadrant/midline bowel loops. 3. Partially visualized probable small right pleural effusion. Reading Location: [id number] Physical Exam Const oriented x3 and no apparent distress Resp normal respiratory effort GI GI Narrative: Decreased abdominal distention, decreased tympany, soft, nontender to palpation x 4 quadrants. NG tube with bilious output appears to be functioning well. Assessment & Plan Assessment/Plan (1) SBO (small bowel obstruction): PLAN: Plan The patient is a 74-year-old male with partial small bowel obstruction versus prolonged ileus. Patient required replacement of NG tube due to increased distention and KUB showing severely dilated loops of small bowel particularly in the left abdominal quadrant. He had over a liter of bilious output since placement of the NG tube and his exam is improved. He continues to report intermittent flatus. He is on TPN for nutrition. I have ordered a repeat CT scan with oral contrast (to be delivered via his nasogastric tube) and IV contrast to try to more definitively assess the etiology for his abnormal bowel function. If this is more obstructive in character could represent a high-grade partial small bowel obstruction which case a demonstrated transition zone could guide surgical intervention. However, if it appears more consistent with an ileus then would favor ongoing conservative management as patient is significantly debilitated/malnourished through his multiple hospital stays related to his respiratory presentations. Andres Friedman MD General Surgery Endocrine Surgery Pager: [facility] [address] [place] [address], [facility], [address] [place] [address] Office: [phone] Charges/Coding Visit Charges Inpatient E&M: 55562 [facility] Hosp L2
--- NOTE | 2025-03-19 09:16 | PCM.PN.HOSP ---
Reason for Visit Reason for Visit: Diagnoses Acute posthemorrhagic anemia (03/06/25) Unspecified severe protein-calorie malnutrition (03/06/25) Unspecified protein-calorie malnutrition (03/06/25) Essential (primary) hypertension (03/06/25) Unspecified atrial fibrillation (03/06/25) Orthostatic hypotension (03/06/25) Chronic obstructive pulmonary disease, unspecified (03/06/25) Pleural effusion, not elsewhere classified (03/06/25) Unspecified intestinal obstruction, unspecified as to partial versus complete obstruction (03/06/25) Gastrointestinal hemorrhage, unspecified (03/06/25) Unspecified abnormal finding in specimens from other organs, systems and tissues (03/06/25) Personal history of other specified conditions (03/06/25) 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 Objective Data Objective Data Vital Signs: Vital Signs Temp Pulse Resp BP Pulse Ox O2 Del Method O2 Flow Rate 36.4 C L 77 16 126/64 H 98 Room Air 2 03/19/25 08:28 03/19/25 08:28 03/19/25 08:28 03/19/25 08:28 03/19/25 08:28 03/19/25 08:28 03/18/25 17:15 FiO2 29 03/11/25 17:00 Oxygen Flow Rate (L/min) 2 Oxygen Delivery Method Room Air Weight: 53.3 kg Body Mass Index (BMI) 16.4 Intake & Output: Intake and Output for Last 24 Hours 03/17/25 03/18/25 03/19/25 23:59 23:59 23:59 Intake Total 2041.2 / 2141.2 2546.2 / 2576.2 110 / 110 Output Total 950 / 1350 2150 / 2750 1400 / 1400 Balance 1091.2 / 791.2 396.2 / -173.8 -1290 / -1290 Medical Nutrition Assessment Dietitian: Malnutrition Criteria Met Start: 03/07/25 15:56 Freq: Status: Active Protocol: Document 03/18/25 09:31 JORDAN (Rec: 03/18/25 09:31 SLA [id number]) Nutrition Malnutrition Evidence of Yes Malnutrition Exists Malnutrition (severe Chronic ): Evidenced By Suboptimal Energy Intake (Severe),Weight Loss (Severe), Physical Changes (Moderate) Intake Problem Inadequate Oral Intake Status Inactive Problem Clinical Problem Chronic Disease or Condition Related Malnutrition Etiology severe protein-calorie malnutrition in the context of acute illness related to altered GI function and inability to take adequate energy/pro Signs/Symptoms as evidenced 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 BMI 16.1 Status Active Problem Acute Disease or Injury Related Malnutrition Status Inactive Problem Recommendation Dietitian 1. Recommend advanced diet as tolerated to transitional Recommendations/ diet with goal of regular. Continue ONS w/ meals for Changes increased nutrition if consumed. 2. Will order bag #4: Clinimix E- 1.5L of 8% AA/14% Dextrose at 63ml/hr 3. Will monitor for signs of refeeding syndrome due to prolonged NPO. Lab / Micro Data 03/17/25 06:58 03/19/25 04:46 Labs: Laboratory Results - last 24 hr 03/18/25 11:26: POC Glucose 112 H 03/18/25 17:09: POC Glucose 119 H 03/18/25 23:30: POC Glucose 124 H 03/19/25 04:46: Sodium 140, Potassium 4.0, Chloride 108, Carbon Dioxide 22.3, Anion Gap 9, BUN 24 H, Creatinine 0.54 L, Estim Creat Clear Calc 58.33, Est GFR (MDRD) Non-Af 104, BUN/Creatinine Ratio 44.0 H, Glucose 128 H, Calcium 8.8, Phosphorus 2.6 L, Magnesium 2.1, Total Bilirubin 0.37, AST 19, ALT 7, Alkaline Phosphatase 88, Total Protein 5.5 L, Albumin 2.4 L, Globulin 3.1, Albumin/Globulin Ratio 0.8 L 03/19/25 06:12: POC Glucose 123 H Micro: Microbiology 03/06/25 09:24 Stool Stool Occult Blood (DESHAUN) - Final Occult Blood Positive Radiography Diagnostic Testing: Radiology Impression KUB X-Ray 03/18/25 12:05 IMPRESSION: Findings are suspect for small bowel obstruction. Correlate clinically. Reading Location: [facility] KUB X-Ray 03/18/25 16:20 IMPRESSION: 1. Interval gastric tube placement as described. 2. Persistent dilation of the visualized left upper quadrant/midline bowel loops. 3. Partially visualized probable small right pleural effusion. Reading Location: [facility] Physical Exam Const alert and no apparent distress HEENT head/scalp atraumatic and moist oral mucous membranes Resp normal respiratory effort, no retractions, no use of accessory muscles and clear to auscultation bilaterally Cardio regular rate, regular rhythm, S1 normal heart sound and S2 normal heart sound GI normal to inspection, nondistended, normoactive bowel sounds, soft to palpation, non-tender and non-distended Extremity normal to inspection and full ROM Assessment & Plan Assessment/Plan (1) Atrial fibrillation with RVR: PLAN: In NSR Cardiology following. Holding off on OAC given GIB. Follow up outpatient for evaluation for Watchman. on PRN metoprolol and dilt. (2) SBO (small bowel obstruction): PLAN: recurrent General surgery following. NGT removed 03/16. Replaced 03/18 CT ordered Tentative plans to take the patient to surgery on the . (3) GI bleed: PLAN: 2/2 MWT. EGD on 03/07 that showed the MWT and treated with an argon laser, erosive gastropathy. Hemoglobin stable (4) Pleural effusion: PLAN: Right sided pleural effusion. Thoracentesis 03/07 removed 390 cc of fluid. Consistent with transudative effusion. Repeat thoracentesis had been ordered. Given the relatively low amount of fluid removed on the , it was transudative, CXR on the showed a small right sided pleural effusion--will discontinue given the risks at this time out weigh the benefits. Previously in April, it had shown mesothelial cells. Pathology was not sent this admission. Previously had been told by oncology that he did not have mesothelioma. Recommended outpt pulmonary follow up. (5) ABLA (acute blood loss anemia): PLAN: Hg 11.3 on the . 2/2 GIB from MWT. Down to 7.3. No need for transfusion. Continue to monitor. (6) Protein calorie malnutrition: PLAN: Weight loss of 18kg since April 2024. Continue w TPN until eating more regularly. Renewed TPN today. PLAN: Plan VTE prophylaxis with SCDs Charges/Coding Visit Charges Inpatient E&M: 45786 Subs Hosp L2
--- NOTE | 2025-03-19 09:54 | CT_ITS ---
PROCEDURE: ABDOMEN/PELVIS WITH CONTRAST 03/19/2025 REASON FOR EXAM: F/U CONCERN FOR small-bowel obstruction VS ILEUS. TECHNIQUE: Abdomen and pelvis CT with intravenous contrast. Coronal and Sagittal reconstruction series were provided. PATIENT PREPARATION: Per protocol ORAL CONTRAST TYPE: Gastrografin. Volume given: 30 mL. CONTRAST: Isovue 370 VOLUME: 75 mL One or more dose reduction techniques were used (e.g., Automated exposure control, adjustment of the mA and/or kV according to patient size, use of iterative reconstruction technique. RADIATION DOSE SUMMARY: CTDlvol: 6.60 mGy DLP: 377.43 mGycm COMPARISON: No comparison CT exams. FINDINGS: Lung bases: Airspace consolidation with air bronchograms in the right lung base. Split pleura sign in the right lung base suggesting empyema. Moderate left pleural effusion. Liver: Unremarkable. Gallbladder: Not identified. Spleen: Unremarkable. Pancreas: Grossly normal. Adrenals: Difficult to visualize. No obvious adrenal mass. Kidneys: Normal position, contour and enhancement. Numerous nonobstructing calculi in the lower pole of the right kidney. No hydronephrosis. Bladder: Not seen well. Ortega catheter in the bladder. Reproductive Organs: Unremarkable. Bowel: Dilated small bowel loops. The majority, if not all, small bowel loops are dilated and filled with contrast. The entire small bowel has contrast. No contrast seen in the transverse or ascending colon Appendix: Not identified. Lymph nodes: No adenopathy appreciated, but study is limited or detection of small anatomy. Vasculature: Unremarkable. 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 Peritoneum / Retroperitoneum: Mesentery is edematous. Bones: No aggressive lesions identified. Endplate spondylosis CT/Abdomen/Pelvis WITH Contrast IMPRESSION: Right lung base pneumonia and split site of empyema in the base of the right he mithorax. [id number] left pleural effusion. Small-bowel obstruction Other findings as above. Reading Location: [facility]
[2025-03-19] MEDS: Potassium Phosphate 15 MM in 0.9% Normal Saline (250mL Bag) 250 ML 125 MM IV (10:13)
[2025-03-19] MEDS: Ondansetron 4 MG/2 ML Vial IV (10:31)
[2025-03-19 14:05] LABS: Bedside Glucose 113 mg/dL (74-106)
[2025-03-19] MEDS: TPN - Clinimix E 8%-14% Soln 2,000 ML with Multivitamins 10 ML, Trace Elements 1 ML, Fo... 63 ML IV (15:39)
[2025-03-19 17:19] LABS: Bedside Glucose 90 mg/dL (74-106)
[2025-03-19] MEDS: Fleet Enema 133 ML RC (18:06)
[2025-03-20] LABS: Bedside Glucose 106 mg/dL (74-106)
[2025-03-20 03:33] VITALS: BP 98/58; PULSE 80; RESP 16; TEMP 36.4; O2SAT 98
[2025-03-20 03:48] VITALS: BMI 16.2
[2025-03-20] MEDS: Piperacil/Tazobactam 3.375 GM in 0.9% Normal Saline (50mL MB+) 50 ML IV ×3 (05:37→23:02)
[2025-03-20 05:39] VITALS: BMI 15.4
[2025-03-20 05:44] LABS: Absolute Lymphocyte Count 0.47 X10^3/uL (0.83-4.51); Absolute Neutrophil Count 4.9 X10^3/uL (2.0-7.7); Basophil# 0.02 X10^3/uL; Basophil% 0.3 % (0-1); Eosinophil# 0.05 X10^3/uL; Eosinophils% 0.8 % (0-5); Hematocrit 23.7 % (40-54); Hemoglobin 7.3 g/dL (13.0-16.5); Lymphocyte # 0.47 X10^3/ul (0.83-4.51); Lymphocyte % 7.9 % (19-41); Mean Corp Hgb Conc 30.8 g/dL (32-36); Mean Corpuscular Hgb 26.5 pg (27.0-32.0); Mean Corpuscular Volume 86.2 fL (80-94); Mean Platelet Vol. 10.2 fl (6.2-12.0); Monocyte# 0.51 X10^3/uL; Monocyte% 8.5 % (0-10); NRBC Flagged by Analyzer 0 % (0-5); Neutrophil # 4.92 X10^3/uL (2.7-7.7); Neutrophil % 82.3 % (47-70); POSITIVE DIFFERENTIAL YES; Platelet Count 341 K/mm3 (150-450); RBC Distribution Width CV 18.6 % (11.6-14.6); RBC Distribution Width SD 57.4 fl (35.1-43.9); Red Blood Count 2.75 M/mm3 (4.6-6.2)
[2025-03-20 06:36] LABS: ALB/GLOB Ratio 0.8 RATIO (0.9-2.4); AST(SGOT) 23 U/L (<=37); Alanine Aminotransfer ALT/SGPT 12 U/L (<=46); Albumin, Serum 2.3 g/dL (3.4-4.8); Alkaline Phosphatase 110 U/L (40-129); Anion Gap 8 (5-15); BUN 27 mg/dL (4-19); BUN/Creat Ratio 52.8 RATIO (10-20); Calcium,Total 8.9 mg/dL (7.6-11.0); Carbon Dioxide 23.4 mmol/L (21.0-32.0); Chloride 106 mmol/L (98-108); EST Glomerular Filtration Rate 106 (>60); Estimated Creatinine Clearance 55.89 ml/min (50-250); Glucose 108 mg/dL (70-99); Magnesium 2.1 mg/dL (1.5-2.2); Phosphorus 2.9 mg/dL (2.7-4.5); Potassium 4.2 mmol/L (3.3-5.1); Protein, Total 5.3 g/dL (5.9-8.4); Sodium Level 137 mmol/L (133-145); Total Bilirubin 0.36 mg/dL (0.00-1.30)
[2025-03-20 06:45] LABS: Bedside Glucose 107 mg/dL (74-106)
[2025-03-20 07:00] VITALS: PULSE 75
[2025-03-20] MEDS: Polyethylene Glycol 3350 17 GM PACKET PO (08:58)
[2025-03-20] MEDS: Pantoprazole Sodium 40 MG in 0.9% Normal Saline (100mL MB+) 100 ML 330 MG IV ×2 (08:59→21:59)
[2025-03-20] MEDS: Escitalopram Oxalate 10 MG Tablet PO (08:59)
[2025-03-20] MEDS: Menthol/Lanolin/Calamine/Znox 113 GM Tube 1 APPLIC TOPICAL ×2 (09:03→22:03)
--- NOTE | 2025-03-20 09:14 | PN.SURG_ITS ---
Subjective Subjective Patient seen and evaluated during AM rounds. Is found lying in bed. He states that his abdominal discomfort is improved. He denies any nausea. He is uncertain whether or not he experienced a bowel movement after his enema yesterday. Objective Data Objective Data Vital Signs: Vital Signs Temp Pulse Resp BP Pulse Ox O2 Del Method O2 Flow Rate 97.5 F L 80 16 98/58 L 98 Room Air 2 03/20/25 03:33 03/20/25 03:33 03/20/25 03:33 03/20/25 03:33 03/20/25 03:33 03/20/25 03:33 03/19/25 16:00 FiO2 29 03/11/25 17:00 Oxygen Flow Rate (L/min) 2 Oxygen Delivery Method Room Air Weight: 110 lb 14.28 oz Body Mass Index (BMI) 15.4 Intake & Output: Intake and Output for Last 24 Hours 03/18/25 03/19/25 03/20/25 23:59 23:59 23:59 Intake Total 2546.2 / 2576.2 3243.6 / 3273.6 110 / 110 Output Total 2150 / 2750 3300 / 4500 1550 / 1550 Balance 396.2 / -173.8 -56.4 / -1226.4 -1440 / -1440 Medical Nutrition Assessment Dietitian: Malnutrition Criteria Met Start: 03/07/25 15:56 Freq: Status: Active Protocol: Document 03/18/25 09:31 JORDAN (Rec: 03/18/25 09:31 SLA [id number]) Nutrition Malnutrition Evidence of Yes Malnutrition Exists Malnutrition (severe Chronic ): Evidenced By Suboptimal Energy Intake (Severe),Weight Loss (Severe), Physical Changes (Moderate) Intake Problem Inadequate Oral Intake Status Inactive Problem Clinical Problem Chronic Disease or Condition Related Malnutrition Etiology severe protein-calorie malnutrition in the context of acute illness related to altered GI function and inability to take adequate energy/pro Signs/Symptoms as evidenced by 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 BMI 16.1 Status Active Problem Acute Disease or Injury Related Malnutrition Status Inactive Problem Recommendation Dietitian 1. Recommend advanced diet as tolerated to transitional Recommendations/ diet with goal of regular. Continue ONS w/ meals for Changes increased nutrition if consumed. 2. Will order bag #4: Clinimix E- 1.5L of 8% AA/14% Dextrose at 63ml/hr 3. Will monitor for signs of refeeding syndrome due to prolonged NPO. Lab / Micro Data 03/20/25 05:31 03/20/25 05:31 Labs: Laboratory Results - last 24 hr 03/19/25 13:46: POC Glucose 113 H 03/19/25 16:51: POC Glucose 90 03/19/25 23:41: POC Glucose 106 03/20/25 05:31: WBC 6.0, RBC 2.75 L, Hgb 7.3 L, Hct 23.7 L, MCV 86.2, MCH 26.5 L , MCHC 30.8 L, RDW Std Deviation 57.4 H, RDW Coeff of Wlibert 18.6 H, Plt Count 341, MPV 10.2, Immature Gran % (Auto) 0.200, Neut % (Auto) 82.3 H, Lymph % (Auto) 7.9 L, [place] % (Auto) 8.5, Eos % (Auto) 0.8, Baso % (Auto) 0.3, Absolute Neuts (auto) 4.9, Absolute Lymphs (auto) 0.47 L, Nucleated RBC % 0, Sodium 137, Potassium 4.2, Chloride 106, Carbon Dioxide 23.4, Anion Gap 8, BUN 27 H, Creatinine 0.50 L , Estim Creat Clear Calc 55.89, Est GFR (MDRD) Non-Af 106, BUN/Creatinine Ratio 52.8 H, Glucose 108 H, Calcium 8.9, Phosphorus 2.9, Magnesium 2.1, Total Bilirubin 0.36, AST 23, ALT 12, Alkaline Phosphatase 110, Total Protein 5.3 L, A lbumin 2.3 L, Globulin 3.0, Albumin/Globulin Ratio 0.8 L 03/20/25 05:36: POC Glucose 107 H Micro: Microbiology 03/06/25 09:24 Stool Stool Occult Blood (DESAHUN) - Final Occult Blood Positive Radiography Diagnostic Testing: Radiology Impression Abdomen/Pelvis CT 03/19/25 09:54 IMPRESSION: Right lung base pneumonia and split site of empyema in the base of the right hemithorax. [id number] left pleural effusion. Small-bowel obstruction Other findings as above. Reading [facility] Physical Exam Const oriented x3 Constitutional Narrative: Patient has somewhat of a depressed affect Resp normal respiratory effort GI GI Narrative: Nasogastric tube in place to right nare with bilious output but with lesser volume. Nasogastric tube was initially disconnected from the suction tubing upon arrival but otherwise found to be working well once reconnected. Patient's abdomen is less distended, soft, and nontender to palpation. I also do not appreciate the degree of tympany with percussion that I formerly observed Assessment & Plan Assessment/Plan (1) SBO (small bowel obstruction): PLAN: Plan The patient is a 74-year-old male with partial small bowel obstruction versus prolonged ileus. Patient with NG tube still in place and a moderate volume output (700 mL down from over a liter the day previous). Bowel movement reported after enema and EMR but patient is unable to confirm. Abdominal exam is improved. I had the opportunity to discuss patient's images with our onsite radiologist and he favors small bowel obstruction secondary to stool burden of the right colon. And confirming no evidence of a mechanical obstruction apart from this I have initiated a bowel prep via his NG tube. Will follow-up for patient tolerance and likely try an additional enema today. We need to continue to remain vigilant to aspiration precautions and minimizing patient's risk for aspiration until his nasogastric tube is able to be removed. Continue TPN for nutrition. Andres Friedman MD General Surgery Endocrine Surgery Pager: [facility] [address] [place] [address] [address] [place] [address] Office: [phone] Charges/Coding Visit Charges Inpatient E&M: 97373 Subs Hosp L2
[2025-03-20 09:30] VITALS: BP 112/65; PULSE 75; RESP 19; TEMP 36.4; O2SAT 97
[2025-03-20] MEDS: Electrolyte Solution/Peg's 4000 ML 2000 ML PO (11:30)
[2025-03-20 13:08] LABS: Bedside Glucose 101 mg/dL (74-106)
[2025-03-20 15:00] VITALS: PULSE 76
--- NOTE | 2025-03-20 16:42 | PN.HOSP_ITS ---
Reason for Visit Reason for Visit: Diagnoses Acute posthemorrhagic anemia (03/06/25) Unspecified severe protein-calorie malnutrition (03/06/25) Unspecified protein-calorie malnutrition (03/06/25) Essential (primary) hypertension (03/06/25) Unspecified atrial fibrillation (03/06/25) Orthostatic hypotension (03/06/25) Chronic obstructive pulmonary disease, unspecified (03/06/25) Pleural effusion, not elsewhere classified (03/06/25) Unspecified intestinal obstruction, unspecified as to partial versus complete obstruction (03/06/25) Gastrointestinal hemorrhage, unspecified (03/06/25) Unspecified abnormal finding in specimens from other organs, systems and tissues (03/06/25) Personal history of other specified conditions (03/06/25) 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 Had BMs. Objective Data Objective Data Vital Signs: Vital Signs Temp Pulse Resp BP Pulse Ox O2 Del Method O2 Flow Rate 36.4 C L 75 19 H 112/65 97 Nasal Cannula 2 03/20/25 09:30 03/20/25 09:30 03/20/25 09:30 03/20/25 09:30 03/20/25 09:30 03/20/25 15:00 03/20/25 15:00 FiO2 29 03/11/25 17:00 Oxygen Flow Rate (L/min) 2 Oxygen Delivery Method Nasal Cannula Weight: 50.3 kg Body Mass Index (BMI) 15.4 Intake & Output: Intake and Output for Last 24 Hours 03/18/25 03/19/25 03/20/25 23:59 23:59 23:59 Intake Total 2546.2 / 2576.2 3243.6 / 3273.6 1390 / 1390 Output Total 2150 / 2750 3300 / 4500 2049 / 2049 Balance 396.2 / -173.8 -56.4 / -1226.4 -660 / -660 Medical Nutrition Assessment Dietitian: Malnutrition Criteria Met Start: 03/07/25 15:56 Freq: Status: Active Protocol: Document 03/18/25 09:31 SLA (Rec: 03/18/25 09:31 SLA [id number]) Nutrition Malnutrition Evidence of Yes Malnutrition Exists Malnutrition (severe Chronic ): Evidenced By Suboptimal Energy Intake (Severe),Weight Loss (Severe), Physical Changes (Moderate) Intake Problem Inadequate Oral Intake Status Inactive Problem Clinical Problem Chronic Disease or Condition Related Malnutrition Etiology severe protein-calorie malnutrition in the context of acute illness related to altered GI function and inability to take adequate energy/pro Signs/Symptoms as evidenced by 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 BMI 16.1 Status Active Problem Acute Disease or Injury Related Malnutrition Status Inactive Problem Recommendation Dietitian 1. Recommend advanced diet as tolerated to transitional Recommendations/ diet with goal of regular. Continue ONS w/ meals for Changes increased nutrition if consumed. 2. Will order bag #4: Clinimix E- 1.5L of 8% AA/14% Dextrose at 63ml/hr 3. Will monitor for signs of refeeding syndrome due to prolonged NPO. Lab / Micro Data 03/20/25 05:31 03/20/25 05:31 Labs: Laboratory Results - last 24 hr 03/19/25 16:51: POC Glucose 90 03/19/25 23:41: POC Glucose 106 03/20/25 05:31: WBC 6.0, RBC 2.75 L, Hgb 7.3 L, Hct 23.7 L, MCV 86.2, MCH 26.5 L , MCHC 30.8 L, RDW Std Deviation 57.4 H, RDW Coeff of Wilbert 18.6 H, Plt Count 341, MPV 10.2, Immature Gran % (Auto) 0.200, Neut % (Auto) 82.3 H, Lymph % (Auto) 7.9 L, [place]acer % (Auto) 8.5, Eos % (Auto) 0.8, Baso % (Auto) 0.3, Absolute Neuts (auto) 4.9, Absolute Lymphs (auto) 0.47 L, Nucleated RBC % 0, Sodium 137, Potassium 4.2, Chloride 106, Carbon Dioxide 23.4, Anion Gap 8, BUN 27 H, Creatinine 0.50 L , Estim Creat Clear Calc 55.89, Est GFR (MDRD) Non-Af 106, BUN/Creatinine Ratio 52.8 H, Glucose 108 H, Calcium 8.9, Phosphorus 2.9, Magnesium 2.1, Total Bilirubin 0.36, AST 23, ALT 12, Alkaline Phosphatase 110, Total Protein 5.3 L, A lbumin 2.3 L, Globulin 3.0, Albumin/Globulin Ratio 0.8 L 03/20/25 05:36: POC Glucose 107 H 03/20/25 12:46: POC Glucose 101 Micro: Microbiology 03/06/25 09:24 Stool Stool Occult Blood (DESHAUN) - Final Occult Blood Positive Physical Exam Const alert and no apparent distress HEENT head/scalp atraumatic and moist oral mucous membranes Resp normal respiratory effort, no retractions, no use of accessory muscles and clear to auscultation bilaterally Cardio regular rate, regular rhythm, S1 normal heart sound and S2 normal heart sound Assessment & Plan Assessment/Plan (1) Atrial fibrillation with RVR: PLAN: In NSR Cardiology following. Holding off on OAC given GIB. Follow up outpatient for evaluation for Watchman. on PRN metoprolol and dilt. (2) SBO (small bowel obstruction): PLAN: recurrent General surgery following. NGT removed 03/16. Replaced 03/18 Concerning for stool burden contributing to SBO, so no plans for surgery at this time. Pt receiving enemas. (3) GI bleed: PLAN: 2/2 MWT. EGD on 03/07 that showed the MWT and treated with an argon laser, erosive gastropathy. Hemoglobin stable (4) Pleural effusion: PLAN: Right sided pleural effusion. Thoracentesis 03/07 removed 390 cc of fluid. Consistent with transudative effusion. Repeat thoracentesis had been ordered. Given the relatively low amount of fluid removed on the , it was transudative, CXR on the showed a small right sided pleural effusion--will discontinue given the risks at this time out weigh the benefits. Previously in April, it had shown mesothelial cells. Pathology was not sent this admission. Previously had been told by oncology that he did not have mesothelioma. Recommended outpt pulmonary follow up. (5) ABLA (acute blood loss anemia): PLAN: Hg 11.3 on the . 2/2 GIB from MWT. Down to 7.3. No need for transfusion. Continue to monitor. (6) Protein calorie malnutrition: PLAN: Weight loss of 18kg since April 2024. Continue w TPN until eating more regularly. Renewed TPN today. PLAN: Plan VTE prophylaxis with SCDs Charges/Coding Visit Charges Inpatient E&M: 64175 Subs Hosp L2
[2025-03-20 18:00] VITALS: BP 98/48; PULSE 77; RESP 16; TEMP 36.7; O2SAT 94
[2025-03-20] MEDS: Fat Emulsions 20% 250 ML IV (18:45)
[2025-03-20] MEDS: TPN - Clinimix E 8%-14% Soln 2,000 ML with Multivitamins 10 ML, Trace Elements 1 ML, Fo... 63 ML IV (18:45)
[2025-03-20 19:04] LABS: Bedside Glucose 117 mg/dL (74-106)
[2025-03-20 21:47] VITALS: BP 110/57; PULSE 80; RESP 17; TEMP 36.4; O2SAT 98
[2025-03-20] MEDS: 0.9% Saline Lock 10 ML Syringe IV (21:55)
[2025-03-20] MEDS: MELATONIN 10 MG TABLET 5 MG PO (23:03)
[2025-03-20 23:44] LABS: Bedside Glucose 122 mg/dL (74-106)
[2025-03-21] VITALS (24 sets, daily range): BP systolic 80–117; BP diastolic 39–91; PULSE 73–118; RESP 16–36; TEMP 36.4–36.6; O2SAT 86–100; BMI 17.4
[2025-03-21] MEDS: Piperacil/Tazobactam 3.375 GM in 0.9% Normal Saline (50mL MB+) 50 ML IV (05:37)
--- NOTE | 2025-03-21 06:03 | RAD_ITS ---
PROCEDURE: ABDOMEN SINGLE VIEW (PORTABLE) 03/21/2025 REASON FOR EXAM: SBO TECHNIQUE: Single view abdomen. COMPARISON: CT scan on 03/19/2025. FINDINGS: Unchanged right pleural effusion. Unchanged passive atelectasis of the right lower lobe. Interval appearance of airspace consolidation in the right lower lobe, probably aspiration pneumonia. Enteric feeding tube is in good position. Unchanged diffuse dilatation of the small bowels, probably partial small bowel obstruction. Unchanged moderate diffuse spondylosis. There is no demonstrated free abdominal air. Normal visualized liver. Normal visualized spleen. Normal visualized kidneys. The soft tissue structures of the pelvis are unremarkable. RAD/Abdomen Single View (Portable) IMPRESSION: Unchanged right pleural effusion. Unchanged passive atelectasis of the right lower lobe. Interval appearance of airspace consolidation in the right lower lobe, probably aspiration pneumonia. Enteric feeding tube is in good position. Unchanged diffuse dilatation of the small bowels, probably partial small bowel obstruction. Unchanged moderate diffuse spondylosis. Reading Location: [id number]
--- NOTE | 2025-03-21 06:03 | RAD_ITS ---
PROCEDURE: CHEST 1 VIEW (PORTABLE) 03/21/2025 REASON FOR EXAM: POSS ASPIRATION TECHNIQUE: Frontal view of the chest. COMPARISON: 03/11/2025. FINDINGS: Mild increase in right pleural effusion. Increased passive atelectatic airspace disease/infiltrates in the right lower lobe, probably superimposed aspiration pneumonia. Enteric feeding tube is in good position with its tip extending below the level of the left hemidiaphragm. Right PICC line is in good position. Enlarged cardiac silhouette. Normal mediastinum and bart. Normal visualized pulmonary arteries. Atheromatous plaques of the visualized aortic arch and descending thoracic aorta. Diffuse spondylosis of the visualized thoracic spine. Normal visualized ribs, clavicles. Degenerative joint disease. There is no demonstrated abnormality of the visualized soft tissue structures of the upper abdomen. RAD/Chest 1 View (Portable) IMPRESSION: Mild increase in right pleural effusion. Increased passive atelectatic airspace disease/infiltrates in the right lower l obe, probably superimposed aspiration pneumonia. Enteric feeding tube is in good position with its tip extending below the level of the left hemidiaphragm. Right PICC line is in good position. Enlarged cardiac silhouette. Reading Location: [facility]
--- NOTE | 2025-03-21 06:30 | NURSING ---
around 0545 pt had a moderate amount of emesis, ngt was clamped and reconnected to low inter suction. Pt 02 desats to 85% on 2L NC. Called RT for assistance and had to switch over to airvo w/ 94% 02 sats, LS dim. Notified and dr Friedman, CXR and KUB stat ordered, placed pt on stepdown monitor for continuous monitor.
[2025-03-21 06:45] LABS: ALB/GLOB Ratio 0.8 RATIO (0.9-2.4); AST(SGOT) 23 U/L (<=37); Alanine Aminotransfer ALT/SGPT 12 U/L (<=46); Albumin, Serum 2.6 g/dL (3.4-4.8); Alkaline Phosphatase 123 U/L (40-129); Anion Gap 9 (5-15); BUN 31 mg/dL (4-19); BUN/Creat Ratio 61.1 RATIO (10-20); Calcium,Total 9.1 mg/dL (7.6-11.0); Carbon Dioxide 22.6 mmol/L (21.0-32.0); Chloride 103 mmol/L (98-108); Creatinine, Serum 0.51 mg/dL (0.70-1.20); EST Glomerular Filtration Rate 105 (>60); Estimated Creatinine Clearance 62.78 ml/min (50-250); Globulin 3.3 g/dL (2.2-4.2); Glucose 145 mg/dL (70-99); Magnesium 2.1 mg/dL (1.5-2.2); Phosphorus 2.3 mg/dL (2.7-4.5); Potassium 3.8 mmol/L (3.3-5.1); Protein, Total 5.8 g/dL (5.9-8.4); Sodium Level 135 mmol/L (133-145); Total Bilirubin 0.44 mg/dL (0.00-1.30)
[2025-03-21 06:53] LABS: Bedside Glucose 129 mg/dL (74-106)
--- NOTE | 2025-03-21 08:22 | PN.SURG_ITS ---
Subjective Subjective Patient evaluated resting in bed. He notes increased shortness of breath this morning. Per nursing, patient had a moderate amount of emesis this morning. NG tube was clamped all day and all night yesterday as patient was slowly receiving a bowel prep via NG tube yesterday. Patient was disimpacted over night with a large amount of stool. Patient notes passing flatus. He denies any nausea currently. He denies feeling distended. KUB and CXR completed this morning demonstrating probable aspiration pneumonia and unchanged diffuse dilatation of small bowels, consistent with partial small bowel obstruction. Objective Data Objective Data Vital Signs: Vital Signs Temp Pulse Resp BP Pulse Ox O2 Del Method O2 Flow Rate 97.8 F 83 16 104/57 L 97 Nasal Cannula 6 03/21/25 08:17 03/21/25 08:17 03/21/25 08:17 03/21/25 08:17 03/21/25 08:17 03/21/25 08:17 03/21/25 08:17 FiO2 88 03/21/25 07:03 Oxygen Flow Rate (L/min) 6 Oxygen Delivery Method Nasal Cannula Weight: 124 lb 8.979 oz Body Mass Index (BMI) 17.4 Intake & Output: Intake and Output for Last 24 Hours 03/19/25 03/20/25 03/21/25 23:59 23:59 23:59 Intake Total 3243.6 / 3273.6 3820.4 / 4070.4 610 / 610 Output Total 3300 / 4500 2325 / 2625 1500 / 1500 Balance -56.4 / -1226.4 1495.4 / 1445.4 -890 / -890 Medical Nutrition Assessment Dietitian: Malnutrition Criteria Met Start: 03/07/25 15:56 Freq: Status: Active Protocol: Document 03/18/25 09:31 JORDAN (Rec: 03/18/25 09:31 [facility] [id number]) Nutrition Malnutrition Evidence of Yes Malnutrition Exists Malnutrition (severe Chronic ): Evidenced By Suboptimal Energy Intake (Severe),Weight Loss (Severe), Physical Changes (Moderate) Intake Problem Inadequate Oral Intake Status Inactive Problem Clinical Problem Chronic Disease or Condition Related Malnutrition Etiology severe protein-calorie malnutrition in the context of acute illness related to altered GI function and inability to take adequate energy/pro Signs/Symptoms as 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 BMI 16.1 Status Active Problem Acute Disease or Injury Related Malnutrition Status Inactive Problem Recommendation Dietitian 1. Recommend advanced diet as tolerated to transitional Recommendations/ diet with goal of regular. Continue ONS w/ meals for Changes increased nutrition if consumed. 2. Will order bag #4: Clinimix E- 1.5L of 8% AA/14% Dextrose at 63ml/hr 3. Will monitor for signs of refeeding syndrome due to prolonged NPO. Lab / Micro Data 03/20/25 05:31 03/21/25 05:24 Labs: Laboratory Results - last 24 hr 03/20/25 12:46: POC Glucose 101 03/20/25 18:26: POC Glucose 117 H 03/20/25 23:13: POC Glucose 122 H 03/21/25 05:24: Sodium 135, Potassium 3.8, Chloride 103, Carbon Dioxide 22.6, Anion Gap 9, BUN 31 H, Creatinine 0.51 L, Estim Creat Clear Calc 62.78, Est GFR (MDRD) Non-Af 105, BUN/Creatinine Ratio 61.1 H, Glucose 145 H, Calcium 9.1, P hosphorus 2.3 L, Magnesium 2.1, Total Bilirubin 0.44, AST 23, ALT 12, Alkaline Phosphatase 123, Total Protein 5.8 L, Albumin 2.6 L, Globulin 3.3, A lbumin/Globulin Ratio 0.8 L 03/21/25 05:35: POC Glucose 129 H Micro: Microbiology 03/06/25 09:24 Stool Stool Occult Blood (DESHAUN) - Final Occult Blood Positive Radiography Diagnostic Testing: Radiology Impression Chest X-Ray 03/21/25 06:03 IMPRESSION: Mild increase in right pleural effusion. Increased passive atelectatic airspace disease/infiltrates in the right lower lobe, probably superimposed aspiration pneumonia. Enteric feeding tube is in good position with its tip extending below the level of the left hemidiaphragm. Right PICC line is in good position. Enlarged cardiac silhouette. Reading [facility] 03/21/25 06:03 IMPRESSION: Unchanged right pleural effusion. Unchanged passive atelectasis of the right lower lobe. Interval appearance of airspace consolidation in the right lower lobe, probably aspiration pneumonia. Enteric feeding tube is in good position. Unchanged diffuse dilatation of the small bowels, probably partial small bowel obstruction. Unchanged moderate diffuse spondylosis. Reading Location: [place] [id number] Physical Exam Const alert and oriented x3 General Appearance: cooperative and frail HEENT HEENT Narrative: NG tube intact- 900 cc currently in the canister of dark brown liquid GI GI Narrative: Abdomen- soft, nondistended, hypoactive bowel sounds. Assessment & Plan Assessment/Plan (1) SBO (small bowel obstruction): PLAN: I am following this patient in conjunction with Dr. Dawson. He will independently evaluate this patient. Labs reviewed. Continue TPN Continue NPO Patient had an aspiration event early this morning. Will plan to continue NG tube to suction Encourage sitting up in the chair and ambulation Will discuss patient with Dr. Dawson on treatment moving forward Patient would like to continue to take treatment day by day We will continue to monitor this patient Charges/Coding Visit Charges Inpatient E&M: 75852 Subs Hosp L2
--- NOTE | 2025-03-21 09:00 | PCM.PN.HOSP ---
Reason for Visit Reason for Visit: Diagnoses Acute posthemorrhagic anemia (03/06/25) Unspecified severe protein-calorie malnutrition (03/06/25) Unspecified protein-calorie malnutrition (03/06/25) Essential (primary) hypertension (03/06/25) Unspecified atrial fibrillation (03/06/25) Orthostatic hypotension (03/06/25) Chronic obstructive pulmonary disease, unspecified (03/06/25) Pleural effusion, not elsewhere classified (03/06/25) Unspecified intestinal obstruction, unspecified as to partial versus complete obstruction (03/06/25) Gastrointestinal hemorrhage, unspecified (03/06/25) Unspecified abnormal finding in specimens from other organs, systems and tissues (03/06/25) Personal history of other specified conditions (03/06/25) 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 Objective Data Objective Data Vital Signs: Vital Signs Temp Pulse Resp BP Pulse Ox O2 Del Method O2 Flow Rate 36.6 C 83 31 H 104/57 L 92 Airvo 60 03/21/25 08:17 03/21/25 08:17 03/21/25 08:35 03/21/25 08:17 03/21/25 08:35 03/21/25 08:35 03/21/25 08:35 FiO2 70 03/21/25 08:35 Oxygen Flow Rate (L/min) 60 Oxygen Delivery Method Airvo Weight: 56.5 kg Body Mass Index (BMI) 17.4 Intake & Output: Intake and Output for Last 24 Hours 03/19/25 03/20/25 03/21/25 23:59 23:59 23:59 Intake Total 3243.6 / 3273.6 3820.4 / 4070.4 610 / 610 Output Total 3300 / 4500 2325 / 2625 1500 / 1500 Balance -56.4 / -1226.4 1495.4 / 1445.4 -890 / -890 Medical Nutrition Assessment Dietitian: Malnutrition Criteria Met Start: 03/07/25 15:56 Freq: Status: Active Protocol: Document 03/18/25 09:31 SLA (Rec: 03/18/25 09:31 SLA [id number]) Nutrition Malnutrition Evidence of Yes Malnutrition Exists Malnutrition (severe Chronic ): Evidenced By Suboptimal Energy Intake (Severe),Weight Loss (Severe), Physical Changes (Moderate) Intake Problem Inadequate Oral Intake Status Inactive Problem Clinical Problem Chronic Disease or Condition Related Malnutrition Etiology severe protein-calorie malnutrition in the context of acute illness related to altered GI function and inability to take adequate energy/pro Signs/Symptoms as evidenced 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 BMI 16.1 Status Active Problem Acute Disease or Injury Related Malnutrition Status Inactive Problem Recommendation Dietitian 1. Recommend advanced diet as tolerated to transitional Recommendations/ diet with goal of regular. Continue ONS w/ meals for Changes increased nutrition if consumed. 2. Will order bag #4: Clinimix E- 1.5L of 8% AA/14% Dextrose at 63ml/hr 3. Will monitor for signs of refeeding syndrome due to prolonged NPO. Lab / Micro Data 03/20/25 05:31 03/21/25 05:24 Labs: Laboratory Results - last 24 hr 03/20/25 12:46: POC Glucose 101 03/20/25 18:26: POC Glucose 117 H 03/20/25 23:13: POC Glucose 122 H 03/21/25 05:24: Sodium 135, Potassium 3.8, Chloride 103, Carbon Dioxide 22.6, Anion Gap 9, BUN 31 H, Creatinine 0.51 L, Estim Creat Clear Calc 62.78, Est GFR (MDRD) Non-Af 105, BUN/Creatinine Ratio 61.1 H, Glucose 145 H, Calcium 9.1, Phosphorus 2.3 L, Magnesium 2.1, Total Bilirubin 0.44, AST 23, ALT 12, Alkaline Phosphatase 123, Total Protein 5.8 L, Albumin 2.6 L, Globulin 3.3, Albumin/Globulin Ratio 0.8 L 03/21/25 05:35: POC Glucose 129 H Micro: Microbiology 03/06/25 09:24 Stool Stool Occult Blood (DESHAUN) - Final Occult Blood Positive Radiography Diagnostic Testing: Radiology Impression Chest X-Ray 03/21/25 06:03 IMPRESSION: Mild increase in right pleural effusion. Increased passive atelectatic airspace disease/infiltrates in the right lower lobe, probably superimposed aspiration pneumonia. Enteric feeding tube is in good position with its tip extending below the level of the left hemidiaphragm. Right PICC line is in good position. Enlarged cardiac silhouette. [facility] 03/21/25 06:03 IMPRESSION: Unchanged right pleural effusion. Unchanged passive atelectasis of the right lower lobe. Interval appearance of airspace consolidation in the right lower lobe, probably aspiration pneumonia. Enteric feeding tube is in good position. Unchanged diffuse dilatation of the small bowels, probably partial small bowel obstruction. Unchanged moderate diffuse spondylosis. [facility] Physical Exam Const alert and no apparent distress Constitutional Narrative: cachectic. afebrile. tachypneic. HEENT head/scalp atraumatic Resp normal respiratory effort Resp Narrative: coarse breath sounds bilaterally. tachypneic. using accessary muscles on Airvo. Cardio regular rate and regular rhythm GI normal to inspection, nondistended, normoactive bowel sounds, soft to palpation, non-tender and non-distended Neuro Sensorium / Orientation: awake and alert Assessment & Plan Assessment/Plan (1) Respiratory failure: PLAN: 2/2 aspiration. Has been on pip/tazo since 03/08, will DC. Start cefepime. On Airvo Encourage PEP previously had not been using it. Will given dose of IV furosemide Check an ABG (2) Atrial fibrillation with RVR: PLAN: In NSR Cardiology following. Holding off on OAC given GIB. Follow up outpatient for evaluation for Watchman. on PRN metoprolol and dilt. (3) SBO (small bowel obstruction): PLAN: recurrent General surgery following. NGT removed 03/16. Replaced 03/18 Concerning for stool burden contributing to SBO, so no plans for surgery at this time. Pt receiving enemas. (4) GI bleed: PLAN: 2/2 MWT. EGD on 03/07 that showed the MWT and treated with an argon laser, erosive gastropathy. Hemoglobin stable (5) Pleural effusion: PLAN: Right sided pleural effusion. Thoracentesis 03/07 removed 390 cc of fluid. Consistent with transudative effusion. Repeat thoracentesis had been ordered. Given the relatively low amount of fluid removed on the , it was transudative, CXR on the showed a small right sided pleural effusion--will discontinue given the risks at this time out weigh the benefits. Previously in April, it had shown mesothelial cells. Pathology was not sent this admission. Previously had been told by oncology that he did not have mesothelioma. Recommended outpt pulmonary follow up. (6) ABLA (acute blood loss anemia): PLAN: Hg 11.3 on the . 2/2 GIB from MWT. Down to 7.3. No need for transfusion. Continue to monitor. (7) Protein calorie malnutrition: PLAN: Weight loss of 18kg since April 2024. Again, continue w TPN until eating more regularly. Renewed TPN today. (8) Pneumonia: PLAN: Increased infiltrate on CXR. Has been on pip/tazo since the , will DC. Encourage PEP PLAN: Plan VTE prophylaxis with SCDs Advance care planning: Spent additional 20 minutes discussing with the patient and his daughters about goals of care. Explained the patient that overall is a very poor performance status even before coming to hospital with his numerous medical issues. Discussed CODE STATUS with him and explained that we would do what he would want but I told them that his chance of survival in the event of cardiac arrest would be very low given his known diminished status with cachexia. Charges/Coding Visit Charges Inpatient E&M: 25251 Subs Hosp L3 Procedures Hospitalists Procedures: 33629 Advncd Care Plan 30 Min
[2025-03-21] MEDS: Furosemide 40 MG/4 ML Vial IV (09:59)
[2025-03-21] MEDS: Ipratropium/Albuterol Sulfate 3 ML AMPUL.NEB INHALATION (10:12)
[2025-03-21] MEDS: Pantoprazole Sodium 40 MG in 0.9% Normal Saline (100mL MB+) 100 ML 330 MG IV ×2 (11:54→21:08)
[2025-03-21 12:21] LABS: Bedside Glucose 115 mg/dL (74-106)
[2025-03-21 16:35] LABS: Base Excess 6 mmol/L (-2 to +2); Blood Gas Specimen Type ART; Comment airvo 60lpm; Mode Not entered; O2 Delivery Device Not entered; PO2 103 mmHG (75-100); SITE L Brach; SO2 98 % (95-99); Total Carbon Dioxide 30 mmol/L; pCO2 37.9 mmHg (35-45); pH 7.49 (7.35-7.45)
[2025-03-21] MEDS: TPN - Clinimix E 8%-14% Soln 2,000 ML with Multivitamins 10 ML, Trace Elements 1 ML, Fo... 63 ML IV (16:39)
[2025-03-21 18:52] LABS: Bedside Glucose 114 mg/dL (74-106)
[2025-03-21] MEDS: 0.9% Normal Saline (1000mL) 1,000 ML 150 ML IV (19:06)
[2025-03-21] MEDS: Midodrine HCl 5 MG Tablet 10 MG GT (19:31)
[2025-03-21] MEDS: Menthol/Lanolin/Calamine/Znox 113 GM Tube 1 APPLIC TOPICAL (21:08)
[2025-03-21] MEDS: 0.9% Saline Lock 10 ML Syringe IV (21:08)
[2025-03-21] MEDS: Cefepime HCl 1 GM in 0.9% Normal Saline (50mL MB+) 50 ML IV (22:18)
[2025-03-22] VITALS (20 sets, daily range): BP systolic 94–119; BP diastolic 43–59; PULSE 73–94; RESP 12–28; TEMP 36.1–36.6; O2SAT 88–96; BMI 16.7
[2025-03-22 00:09] LABS: Bedside Glucose 111 mg/dL (74-106)
[2025-03-22 05:20] LABS: Absolute Lymphocyte Count 0.48 X10^3/uL (0.83-4.51); Absolute Neutrophil Count 12.9 X10^3/uL (2.0-7.7); Basophil# 0.01 X10^3/uL; Basophil% 0.1 % (0-1); Hematocrit 22.3 % (40-54); Hemoglobin 7.1 g/dL (13.0-16.5); Lymphocyte # 0.48 X10^3/ul (0.83-4.51); Lymphocyte % 3.5 % (19-41); Mean Corp Hgb Conc 31.8 g/dL (32-36); Mean Corpuscular Hgb 27.2 pg (27.0-32.0); Mean Corpuscular Volume 85.4 fL (80-94); Mean Platelet Vol. 10.6 fl (6.2-12.0); Monocyte# 0.43 X10^3/uL; Monocyte% 3.1 % (0-10); NRBC Flagged by Analyzer 0 % (0-5); Neutrophil # 12.86 X10^3/uL (2.7-7.7); Neutrophil % 92.7 % (47-70); POSITIVE DIFFERENTIAL YES; Platelet Count 314 K/mm3 (150-450); RBC Distribution Width CV 18.7 % (11.6-14.6); RBC Distribution Width SD 55.4 fl (35.1-43.9); Red Blood Count 2.61 M/mm3 (4.6-6.2); White Blood Count 13.9 K/mm3 (4.4-11.0)
[2025-03-22 05:53] LABS: ALB/GLOB Ratio 0.7 RATIO (0.9-2.4); AST(SGOT) 23 U/L (<=37); Alanine Aminotransfer ALT/SGPT 11 U/L (<=46); Albumin, Serum 2.2 g/dL (3.4-4.8); Alkaline Phosphatase 114 U/L (40-129); Anion Gap 8 (5-15); BUN 37 mg/dL (4-19); Calcium,Total 8.8 mg/dL (7.6-11.0); Carbon Dioxide 23.7 mmol/L (21.0-32.0); Chloride 107 mmol/L (98-108); Creatinine, Serum 0.56 mg/dL (0.70-1.20); EST Glomerular Filtration Rate 102 (>60); Estimated Creatinine Clearance 60.56 ml/min (50-250); Glucose 113 mg/dL (70-99); Magnesium 2.2 mg/dL (1.5-2.2); Phosphorus 2.6 mg/dL (2.7-4.5); Potassium 3.8 mmol/L (3.3-5.1); Protein, Total 5.3 g/dL (5.9-8.4); Sodium Level 138 mmol/L (133-145); Total Bilirubin 0.65 mg/dL (0.00-1.30)
--- NOTE | 2025-03-22 06:02 | CPS ---
H20 changed on AIRVO
--- NOTE | 2025-03-22 06:18 | NURSING ---
update given to pt's daughter Karla at this time. Karla thankful for the care provided to pt.
[2025-03-22] MEDS: Cefepime HCl 1 GM in 0.9% Normal Saline (50mL MB+) 50 ML IV ×3 (06:37→22:13)
[2025-03-22] MEDS: 0.9% Saline Lock 10 ML Syringe IV (06:37)
[2025-03-22 07:13] LABS: Bedside Glucose 112 mg/dL (74-106)
--- NOTE | 2025-03-22 09:03 | PN.HOSP_ITS ---
Reason for Visit Reason for Visit: Diagnoses Acute posthemorrhagic anemia (03/06/25) Unspecified severe protein-calorie malnutrition (03/06/25) Unspecified protein-calorie malnutrition (03/06/25) Essential (primary) hypertension (03/06/25) Unspecified atrial fibrillation (03/06/25) Orthostatic hypotension (03/06/25) Pneumonia, unspecified organism (03/06/25) Chronic obstructive pulmonary disease, unspecified (03/06/25) Pleural effusion, not elsewhere classified (03/06/25) Respiratory failure, unspecified, unspecified whether with hypoxia or hypercapnia (03/06/25) Unspecified intestinal obstruction, unspecified as to partial versus complete obstruction (03/06/25) Gastrointestinal hemorrhage, unspecified (03/06/25) Unspecified abnormal finding in specimens from other organs, systems and tissues (03/06/25) Personal history of other specified conditions (03/06/25) 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) Subjective Subjective Has not been using any incentive spirometer Objective Data Objective Data Vital Signs: Vital Signs Temp Pulse Resp BP Pulse Ox O2 Del Method O2 Flow Rate 36.4 C L 73 14 97/43 L 95 Airvo 50 03/22/25 08:40 03/22/25 08:40 03/22/25 08:40 03/22/25 08:40 03/22/25 08:40 03/22/25 08:43 03/22/25 08:40 FiO2 40 03/22/25 08:40 Oxygen Flow Rate (L/min) 50 Oxygen Delivery Method Airvo Weight: 54.5 kg Body Mass Index (BMI) 16.7 Intake & Output: Intake and Output for Last 24 Hours 03/20/25 03/21/25 03/22/25 23:59 23:59 23:59 Intake Total 3820.4 / 4070.4 2290.75 / 2290.75 1030 / 1030 Output Total 2325 / 2625 4150 / 4925 1475 / 1475 Balance 1495.4 / 1445.4 -1859.25 / -2634.25 -445 / -445 Medical Nutrition Assessment Dietitian: Malnutrition Criteria Met Start: 03/07/25 15:56 Freq: Status: Active Protocol: Document 03/18/25 09:31 SLA (Rec: 03/18/25 09:31 [facility] [id number]) Nutrition Malnutrition Evidence of Yes Malnutrition Exists Malnutrition (severe Chronic ): Evidenced By Suboptimal Energy Intake (Severe),Weight Loss (Severe), Physical Changes (Moderate) Intake Problem Inadequate Oral Intake Status Inactive Problem Clinical Problem Chronic Disease or Condition Related Malnutrition Etiology severe protein-calorie malnutrition in the context of acute illness related to altered GI function and inability to take adequate energy/pro Signs/Symptoms as evidenced by 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 BMI 16.1 Status Active Problem Acute Disease or Injury Related Malnutrition Status Inactive Problem Recommendation Dietitian 1. Recommend advanced diet as tolerated to transitional Recommendations/ diet with goal of regular. Continue ONS w/ meals for Changes increased nutrition if consumed. 2. Will order bag #4: Clinimix E- 1.5L of 8% AA/14% Dextrose at 63ml/hr 3. Will monitor for signs of refeeding syndrome due to prolonged NPO. Lab / Micro Data 03/22/25 05:08 03/22/25 05:08 Labs: Laboratory Results - last 24 hr 03/21/25 11:53: POC Glucose 115 H 03/21/25 18:25: POC Glucose 114 H 03/21/25 23:21: POC Glucose 111 H 03/22/25 05:08: WBC 13.9 H, RBC 2.61 L, Hgb 7.1 L, Hct 22.3 L, MCV 85.4, MCH 27.2, MCHC 31.8 L, RDW Std Deviation 55.4 H, RDW Coeff of Wilbert 18.7 H, Plt Count 314, MPV 10.6, Immature Gran % (Auto) 0.600, Neut % (Auto) 92.7 H, Lymph % (Auto) 3.5 L, [place] % (Auto) 3.1, Eos % (Auto) 0.0, Baso % (Auto) 0.1, Absolute Neuts (auto) 12.9 H, Absolute Lymphs (auto) 0.48 L, Nucleated RBC % 0, Sodium 138, Potassium 3.8, Chloride 107, Carbon Dioxide 23.7, Anion Gap 8, BUN 37 H, C reatinine 0.56 L, Estim Creat Clear Calc 60.56, Est GFR (MDRD) Non-Af 102, B UN/Creatinine Ratio 66.0 H, Glucose 113 H, Calcium 8.8, Phosphorus 2.6 L, Magnesium 2.2, Total Bilirubin 0.65, AST 23, ALT 11, Alkaline Phosphatase 114, T otal Protein 5.3 L, Albumin 2.2 L, Globulin 3.0, Albumin/Globulin Ratio 0.7 L 03/22/25 06:34: POC Glucose 112 H Micro: Microbiology 03/06/25 09:24 Stool Stool Occult Blood (DESHAUN) - Final Occult Blood Positive ABG Data ABG results: ABG 03/21/25 16:30 Specimen Type ART Sample Site L Brach pH 7.49 H Bicarbonate Actual 29.0 H Total CO2 30 Base Excess 6 H O2 Saturation 98 O2 % 70.0 ABG pCO2 37.9 ABG pO2 103 H O2 Delivery Device Not entered Vent Mode Not entered Clinical Comments airvo 60lpm Physical Exam Const alert and no apparent distress Constitutional Narrative: Cachectic. Afebrile. Poor eye contact HEENT HEENT Narrative: NG tube in place Resp normal respiratory effort, no retractions, no use of accessory muscles and clear to auscultation bilaterally Cardio regular rate, regular rhythm, S1 normal heart sound and S2 normal heart sound GI non-tender and non-distended Auscultation: hypoactive bowel sounds Extremity normal to inspection Neuro Sensorium / Orientation: awake and alert Assessment & Plan Assessment/Plan (1) Respiratory failure: PLAN: 2/2 aspiration. Has been on pip/tazo since 03/08, will DC. Start cefepime. On Airvo Encourage PEP previously had not been using it. Will given dose of IV furosemide ABG 7.49/37. Asked the patient if he has been using the incentive spirometer to which she said he has not. Said he does not remember talking about it. I assessed the patient's orientation he was alert and oriented x 3 but I feel that he was probably not being honest that he forgot because he said something later that contradicted that statement, that he was can get around to it. I emphasized that I spoke with him about the incentive spirometer with he and his daughters to help him. I strongly encouraged him to utilize the incentive spirometer not for the healthcare providers or even himself but for his family if he is trying to get better. I told him that if he is reluctant to do something as banal as using incentive spirometer that he is unlikely to follow through with therapy in a significant way that would overall benefit him and he may not thrive with therapy and may wind up requiring long-term placement elsewhere. (2) SBO (small bowel obstruction): PLAN: recurrent General surgery following. NGT removed 03/16. Replaced 03/18 Concerning for stool burden contributing to SBO, so no plans for surgery at this time. Pt receiving enemas. (3) GI bleed: PLAN: 11/13 MWT. EGD on 03/07 that showed the MWT and treated with an argon laser, erosive gastropathy. Hemoglobin stable (4) Pleural effusion: PLAN: Right sided pleural effusion. Thoracentesis 03/07 removed 390 cc of fluid. Consistent with transudative effusion. Repeat thoracentesis had been ordered. Given the relatively low amount of fluid removed on the , it was transudative, CXR on the showed a small right sided pleural effusion--will discontinue given the risks at this time out weigh the benefits. Previously in April, it had shown mesothelial cells. Pathology was not sent this admission. Previously had been told by oncology that he did not have mesothelioma. Recommended outpt pulmonary follow up. (5) ABLA (acute blood loss anemia): PLAN: Hg 11.3 on the . 2/2 GIB from MWT. Down to 7.1. No need for transfusion at this time. Continue to monitor. (6) Protein calorie malnutrition: PLAN: Weight loss of 18kg since April 2024. Again, continue w TPN until eating more regularly. Renewed TPN again today. (7) Pneumonia: PLAN: Increased infiltrate on CXR. Has been on pip/tazo since the , will DC. Started cefepime on the . Plan to treat for 7 days but can be de-escalated to oral if you may be ready for discharge. Encourage PEP (8) Atrial fibrillation with RVR: PLAN: In NSR Holding off on OAC given GIB. Follow up outpatient for evaluation for Watchman. PLAN: Plan VTE prophylaxis with SCDs Greater than 50 minutes of which greater than 50 spent time was discussed with the patient at bedside about utilizing incentive spirometer, taking ownership of his role in regards to his medical care rather than being passive, trying to shift his focus to help himself so that he can work on overall strengthening himself. And also clarifying if he is just ready to give up to which he told me he is not. Charges/Coding Visit Charges Inpatient E&M: 00523 Subs Hosp L3
[2025-03-22] MEDS: Pantoprazole Sodium 40 MG in 0.9% Normal Saline (100mL MB+) 100 ML 330 MG IV ×2 (10:23→21:29)
[2025-03-22] MEDS: Menthol/Lanolin/Calamine/Znox 113 GM Tube 1 APPLIC TOPICAL ×2 (10:23→22:16)
--- NOTE | 2025-03-22 11:29 | PN.SURG_ITS ---
Subjective Subjective Patient seen on rounds this morning. Earlier he was quite drowsy but is more easily awakened currently. He denies any new issues or problems. Discussed with RN and it sounds as though he really did not have any significant results with enema last night. There is noted possible hard stool in the rectum at the time of the enema. Objective Data Objective Data Vital Signs: Vital Signs Temp Pulse Resp BP Pulse Ox O2 Del Method O2 Flow Rate 97.6 F L 73 14 97/43 L 95 Airvo 50 03/22/25 08:40 03/22/25 08:40 03/22/25 08:40 03/22/25 08:40 03/22/25 08:40 03/22/25 08:43 03/22/25 08:40 FiO2 40 03/22/25 08:40 Oxygen Flow Rate (L/min) 50 Oxygen Delivery Method Airvo Weight: 120 lb 2.431 oz Body Mass Index (BMI) 16.7 Intake & Output: Intake and Output for Last 24 Hours 03/20/25 03/21/25 03/22/25 23:59 23:59 23:59 Intake Total 3820.4 / 4070.4 2290.75 / 2290.75 1080 / 1080 Output Total 2325 / 2625 4150 / 4925 1475 / 1475 Balance 1495.4 / 1445.4 -1859.25 / -2634.25 -395 / -395 Medical Nutrition Assessment Dietitian: Malnutrition Criteria Met Start: 03/07/25 15:56 Freq: Status: Active Protocol: Document 03/18/25 09:31 JORDAN (Rec: 03/18/25 09:31 SLA [id number]) Nutrition Malnutrition Evidence of Yes Malnutrition Exists Malnutrition (severe Chronic ): Evidenced By Suboptimal Energy Intake (Severe),Weight Loss (Severe), Physical Changes (Moderate) Intake Problem Inadequate Oral Intake Status Inactive Problem Clinical Problem Chronic Disease or Condition Related Malnutrition Etiology severe protein-calorie malnutrition in the context of acute illness related to altered GI function and inability to take adequate energy/pro Signs/Symptoms as evidenced by 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 BMI 16.1 Status Active Problem Acute Disease or Injury Related Malnutrition Status Inactive Problem Recommendation Dietitian 1. Recommend advanced diet as tolerated to transitional Recommendations/ diet with goal of regular. Continue ONS w/ meals for Changes increased nutrition if consumed. 2. Will order bag #4: Clinimix E- 1.5L of 8% AA/14% Dextrose at 63ml/hr 3. Will monitor for signs of refeeding syndrome due to prolonged NPO. Lab / Micro Data 03/22/25 05:08 03/22/25 05:08 Labs: Laboratory Results - last 24 hr 03/21/25 11:53: POC Glucose 115 H 03/21/25 18:25: POC Glucose 114 H 03/21/25 23:21: POC Glucose 111 H 03/22/25 05:08: WBC 13.9 H, RBC 2.61 L, Hgb 7.1 L, Hct 22.3 L, MCV 85.4, MCH 27.2, MCHC 31.8 L, RDW Std Deviation 55.4 H, RDW Coeff of Wilbert 18.7 H, Plt Count 314, MPV 10.6, Immature Gran % (Auto) 0.600, Neut % (Auto) 92.7 H, Lymph % (Auto) 3.5 L, [place] % (Auto) 3.1, Eos % (Auto) 0.0, Baso % (Auto) 0.1, Absolute Neuts (auto) 12.9 H, Absolute Lymphs (auto) 0.48 L, Nucleated RBC % 0, Sodium 138, Potassium 3.8, Chloride 107, Carbon Dioxide 23.7, Anion Gap 8, BUN 37 H, C reatinine 0.56 L, Estim Creat Clear Calc 60.56, Est GFR (MDRD) Non-Af 102, B UN/Creatinine Ratio 66.0 H, Glucose 113 H, Calcium 8.8, Phosphorus 2.6 L, Magnesium 2.2, Total Bilirubin 0.65, AST 23, ALT 11, Alkaline Phosphatase 114, T otal Protein 5.3 L, Albumin 2.2 L, Globulin 3.0, Albumin/Globulin Ratio 0.7 L 03/22/25 06:34: POC Glucose 112 H Micro: Microbiology 03/06/25 09:24 Stool Stool Occult Blood (DESHAUN) - Final Occult Blood Positive ABG Data ABG results: ABG 03/21/25 16:30 Specimen Type ART Sample Site L Brach pH 7.49 H Bicarbonate Actual 29.0 H Total CO2 30 Base Excess 6 H O2 Saturation 98 O2 % 70.0 ABG pCO2 37.9 ABG pO2 103 H O2 Delivery Device Not entered Vent Mode Not entered Clinical Comments airvo 60lpm Physical Exam Narrative He is awake and alert. No acute distress. Abdomen is soft, nontender nondistended. Digital rectal exam was performed and a few pieces of stool were able to be evacuated. No masses were encountered. He did have 1 slightly irritated external hemorrhoid Assessment & Plan Assessment/Plan (1) SBO (small bowel obstruction): PLAN: Plan The patient is a 74-year-old male with prolonged ileus versus partial small bowel obstruction. Suspect that large stool burden remaining in the cecum may be contributing significantly to this picture. Have tried numerous enemas to help soften the stools. Have also tried GoLytely via NG to help push stool through however this may have resulted in some aspiration. Breathing seems to be somewhat improved. Recommend continue TPN. Advised another soapsuds enema today. Continue to follow.
[2025-03-22 12:24] LABS: Triglycerides 50 mg/dL
[2025-03-22] MEDS: Polyethylene Glycol 3350 17 GM PACKET PO (12:59)
[2025-03-22 13:52] LABS: Bedside Glucose 110 mg/dL (74-106)
[2025-03-22] MEDS: TRACE ELEMENTS IV (15:50)
[2025-03-22] MEDS: Fat Emulsions 20% 250 ML IV (15:50)
[2025-03-22] MEDS: MULTIVITAMINS IV (15:50)
[2025-03-22] MEDS: [UNRECOGNIZED DRUG - OTHER] IV (15:50)
[2025-03-22 19:11] LABS: Bedside Glucose 110 mg/dL (74-106)
[2025-03-23] VITALS (19 sets, daily range): BP systolic 103–116; BP diastolic 50–65; PULSE 77–89; RESP 12–26; TEMP 36.2–36.6; O2SAT 90–100; BMI 16.3
[2025-03-23 02:20] LABS: Bedside Glucose 118 mg/dL (74-106)
[2025-03-23 06:19] LABS: Bedside Glucose 123 mg/dL (74-106)
[2025-03-23 06:50] LABS: ALB/GLOB Ratio 0.7 RATIO (0.9-2.4); AST(SGOT) 72 U/L (<=37); Alanine Aminotransfer ALT/SGPT 39 U/L (<=46); Albumin, Serum 2.2 g/dL (3.4-4.8); Alkaline Phosphatase 168 U/L (40-129); Anion Gap 8 (5-15); BUN 30 mg/dL (4-19); BUN/Creat Ratio 69.9 RATIO (10-20); Calcium,Total 9.2 mg/dL (7.6-11.0); Carbon Dioxide 24.2 mmol/L (21.0-32.0); Chloride 109 mmol/L (98-108); Creatinine, Serum 0.43 mg/dL (0.70-1.20); EST Glomerular Filtration Rate 110 (>60); Estimated Creatinine Clearance 59.11 ml/min (50-250); Globulin 3.1 g/dL (2.2-4.2); Glucose 125 mg/dL (70-99); Magnesium 2.5 mg/dL (1.5-2.2); Phosphorus 2.1 mg/dL (2.7-4.5); Potassium 3.7 mmol/L (3.3-5.1); Protein, Total 5.3 g/dL (5.9-8.4); Sodium Level 140 mmol/L (133-145); Total Bilirubin 0.63 mg/dL (0.00-1.30)
[2025-03-23] MEDS: Cefepime HCl 1 GM in 0.9% Normal Saline (50mL MB+) 50 ML IV ×3 (06:58→21:33)
--- NOTE | 2025-03-23 08:48 | PN.HOSP_ITS ---
Reason for Visit Reason for Visit: Diagnoses Acute posthemorrhagic anemia (03/06/25) Unspecified severe protein-calorie malnutrition (03/06/25) Unspecified protein-calorie malnutrition (03/06/25) Essential (primary) hypertension (03/06/25) Unspecified atrial fibrillation (03/06/25) Orthostatic hypotension (03/06/25) Pneumonia, unspecified organism (03/06/25) Chronic obstructive pulmonary disease, unspecified (03/06/25) Pleural effusion, not elsewhere classified (03/06/25) Respiratory failure, unspecified, unspecified whether with hypoxia or hypercapnia (03/06/25) Unspecified intestinal obstruction, unspecified as to partial versus complete obstruction (03/06/25) Gastrointestinal hemorrhage, unspecified (03/06/25) Unspecified abnormal finding in specimens from other organs, systems and tissues (03/06/25) Personal history of other specified conditions (03/06/25) 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 States that he is using the incentive spirometer every hour. Objective Data Objective Data Vital Signs: Vital Signs Temp Pulse Resp BP Pulse Ox O2 Del Method O2 Flow Rate 36.6 C 81 18 116/54 L 91 Airvo 50 03/23/25 05:00 03/23/25 07:20 03/23/25 07:20 03/23/25 05:00 03/23/25 07:20 03/23/25 07:20 03/23/25 07:20 FiO2 60 03/23/25 07:20 Oxygen Flow Rate (L/min) 50 Oxygen Delivery Method Airvo Weight: 53.2 kg Body Mass Index (BMI) 16.3 Intake & Output: Intake and Output for Last 24 Hours 03/21/25 03/22/25 03/23/25 23:59 23:59 23:59 Intake Total 2290.75 / 2290.75 2890.55 / 2890.55 300 / 300 Output Total 4150 / 4925 2975 / 3125 800 / 800 Balance -1859.25 / -2634.25 -84.45 / -234.45 -500 / -500 Medical Nutrition Assessment Dietitian: Malnutrition Criteria Met Start: 03/07/25 15:56 Freq: Status: Active Protocol: Document 03/18/25 09:31 SLA (Rec: 03/18/25 09:31 [facility] [id number]) Nutrition Malnutrition Evidence of Yes Malnutrition Exists Malnutrition (severe Chronic ): Evidenced By Suboptimal Energy Intake (Severe),Weight Loss (Severe), Physical Changes (Moderate) Intake Problem Inadequate Oral Intake Status Inactive Problem Clinical Problem Chronic Disease or Condition Related Malnutrition Etiology severe protein-calorie malnutrition in the context of acute illness related to altered GI function and inability to take adequate energy/pro Signs/Symptoms as evidenced by 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 BMI 16.1 Status Active Problem Acute Disease or Injury Related Malnutrition Status Inactive Problem Recommendation Dietitian 1. Recommend advanced diet as tolerated to transitional Recommendations/ diet with goal of regular. Continue ONS w/ meals for Changes increased nutrition if consumed. 2. Will order bag #4: Clinimix E- 1.5L of 8% AA/14% Dextrose at 63ml/hr 3. Will monitor for signs of refeeding syndrome due to prolonged NPO. Lab / Micro Data 03/22/25 05:08 03/23/25 05:40 Labs: Laboratory Results - last 24 hr 03/22/25 05:08: Triglycerides 50 03/22/25 12:38: POC Glucose 110 H 03/22/25 18:54: POC Glucose 110 H 03/23/25 00:57: POC Glucose 118 H 03/23/25 05:40: Sodium 140, Potassium 3.7, Chloride 109 H, Carbon Dioxide 24.2, Anion Gap 8, BUN 30 H, Creatinine 0.43 L, Estim Creat Clear Calc 59.11, Est GFR (MDRD) Non-Af 110, BUN/Creatinine Ratio 69.9 H, Glucose 125 H, Calcium 9.2, P hosphorus 2.1 L, Magnesium 2.5 H, Total Bilirubin 0.63, AST 72 H, ALT 39, A lkaline Phosphatase 168 H, Total Protein 5.3 L, Albumin 2.2 L, Globulin 3.1, A lbumin/Globulin Ratio 0.7 L 03/23/25 06:00: POC Glucose 123 H Micro: Microbiology 03/06/25 09:24 Stool Stool Occult Blood (DESHAUN) - Final Occult Blood Positive Physical Exam Const Constitutional Narrative: Is lying in bed. Listless. Does have symptoms from nerve adjacent to his right hand Resp normal respiratory effort, no retractions, no use of accessory muscles and clear to auscultation bilaterally Cardio regular rate, regular rhythm, S1 normal heart sound and S2 normal heart sound GI normal to inspection, nondistended, normoactive bowel sounds, soft to palpation, non-tender and non-distended Extremity normal to inspection and full ROM Neuro Sensorium / Orientation: awake and alert Assessment & Plan Assessment/Plan (1) Respiratory failure: PLAN: 2/2 aspiration. Has been on pip/tazo since 03/08, will DC. Start cefepime. On Airvo Encourage PEP previously had not been using it. Will given dose of IV furosemide ABG 7.49/37.9/103 03/23: Asked the patient if he has been using the incentive spirometer to which she said he has not. Said he does not remember talking about it. I assessed the patient's orientation he was alert and oriented x 3 but I feel that he was probably not being honest that he forgot because he said something later that contradicted that statement, that he was can get around to it. I emphasized that I spoke with him about the incentive spirometer with he and his daughters to help him. I strongly encouraged him to utilize the incentive spirometer not for the healthcare providers or even himself but for his family if he is trying to get better. I told him that if he is reluctant to do something as banal as using incentive spirometer that he is unlikely to follow through with therapy in a significant way that would overall benefit him and he may not thrive with therapy and may wind up requiring long-term placement elsewhere. Patient states that he is using the incentive spirometer but him not sure he actually is. (2) SBO (small bowel obstruction): PLAN: recurrent General surgery following. NGT removed 03/16. Replaced 03/18 Concerning for stool burden contributing to SBO, so no plans for surgery at this time. Pt received enemas, Jalynly Surgeon concern about his tone. Tentative plan is for the patient to receive neostigmine on the . (3) GI bleed: PLAN: 2/2 MWT. EGD on 03/07 that showed the MWT and treated with an argon laser, erosive gastropathy. Hemoglobin stable (4) Pleural effusion: PLAN: Right sided pleural effusion. Thoracentesis 03/07 removed 390 cc of fluid. Consistent with transudative effusion. Repeat thoracentesis had been ordered. Given the relatively low amount of fluid removed on the , it was transudative, CXR on the showed a small right sided pleural effusion--will discontinue given the risks at this time out weigh the benefits. Previously in April, it had shown mesothelial cells. Pathology was not sent this admission. Previously had been told by oncology that he did not have mesothelioma. Recommended outpt pulmonary follow up. (5) ABLA (acute blood loss anemia): PLAN: Hg 11.3 on the . 2/2 GIB from MWT. Down to 7.1. No need for transfusion at this time. Continue to monitor. (6) Protein calorie malnutrition: PLAN: Weight loss of 18kg since April 2024. Again, continue w TPN until eating more regularly. Renewed TPN again today. (7) Pneumonia: PLAN: Increased infiltrate on CXR. Has been on pip/tazo since the , will DC. Started cefepime on the . Plan to treat for 7 days but can be de-escalated to oral if you may be ready for discharge. Encourage PEP (8) Atrial fibrillation with RVR: PLAN: In NSR Holding off on OAC given GIB. Follow up outpatient for evaluation for Watchman. PLAN: Plan VTE prophylaxis with SCDs I am concerned about overall poor prognosis for this individual. If patient continues to fail to have any significant progression we will need to readdress goals of care with the patient and his family. Charges/Coding Visit Charges Inpatient E&M: 79495 Subs Hosp L2
[2025-03-23] MEDS: Menthol/Lanolin/Calamine/Znox 113 GM Tube 1 APPLIC TOPICAL ×2 (09:59→21:38)
[2025-03-23] MEDS: Pantoprazole Sodium 40 MG in 0.9% Normal Saline (100mL MB+) 100 ML 330 MG IV ×2 (10:02→22:34)
[2025-03-23 11:51] LABS: Bedside Glucose 128 mg/dL (74-106)
--- NOTE | 2025-03-23 14:38 | PN.SURG_ITS ---
Subjective Subjective No new issues or complaints. Patient states he is passing flatus today but no bowel movements recently Objective Data Objective Data Vital Signs: Vital Signs Temp Pulse Resp BP Pulse Ox O2 Del Method O2 Flow Rate 97.6 F L 80 18 113/53 L 91 Airvo 50 03/23/25 14:00 03/23/25 14:00 03/23/25 14:00 03/23/25 14:00 03/23/25 14:00 03/23/25 14:04 03/23/25 14:00 FiO2 60 03/23/25 14:00 Oxygen Flow Rate (L/min) 50 Oxygen Delivery Method Airvo Weight: 117 lb 4.575 oz Body Mass Index (BMI) 16.3 Intake & Output: Intake and Output for Last 24 Hours 03/21/25 03/22/25 03/23/25 23:59 23:59 23:59 Intake Total 2290.75 / 2290.75 2890.55 / 2890.55 450 / 450 Output Total 4150 / 4925 2975 / 3125 1350 / 1350 Balance -1859.25 / -2634.25 -84.45 / -234.45 -900 / -900 Medical Nutrition Assessment Dietitian: Malnutrition Criteria Met Start: 03/07/25 15:56 Freq: Status: Active Protocol: Document 03/18/25 09:31 JORDAN (Rec: 03/18/25 09:31 JORDAN [id number]) Nutrition Malnutrition Evidence of Yes Malnutrition Exists Malnutrition (severe Chronic ): Evidenced By Suboptimal Energy Intake (Severe),Weight Loss (Severe), Physical Changes (Moderate) Intake Problem Inadequate Oral Intake Status Inactive Problem Clinical Problem Chronic Disease or Condition Related Malnutrition Etiology severe protein-calorie malnutrition in the context of acute illness related to altered GI function and inability to take adequate energy/pro Signs/Symptoms as evidenced by 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 BMI 16.1 Status Active Problem Acute Disease or Injury Related Malnutrition Status Inactive Problem Recommendation Dietitian 1. Recommend advanced diet as tolerated to transitional Recommendations/ diet with goal of regular. Continue ONS w/ meals for Changes increased nutrition if consumed. 2. Will order bag #4: Clinimix E- 1.5L of 8% AA/14% Dextrose at 63ml/hr 3. Will monitor for signs of refeeding syndrome due to prolonged NPO. Lab / Micro Data 03/22/25 05:08 03/23/25 05:40 Labs: Laboratory Results - last 24 hr 03/22/25 18:54: POC Glucose 110 H 03/23/25 00:57: POC Glucose 118 H 03/23/25 05:40: Sodium 140, Potassium 3.7, Chloride 109 H, Carbon Dioxide 24.2, Anion Gap 8, BUN 30 H, Creatinine 0.43 L, Estim Creat Clear Calc 59.11, Est GFR (MDRD) Non-Af 110, BUN/Creatinine Ratio 69.9 H, Glucose 125 H, Calcium 9.2, P hosphorus 2.1 L, Magnesium 2.5 H, Total Bilirubin 0.63, AST 72 H, ALT 39, A lkaline Phosphatase 168 H, Total Protein 5.3 L, Albumin 2.2 L, Globulin 3.1, A lbumin/Globulin Ratio 0.7 L 03/23/25 06:00: POC Glucose 123 H 03/23/25 11:30: POC Glucose 128 H Micro: Microbiology 03/06/25 09:24 Stool Stool Occult Blood (DESHAUN) - Final Occult Blood Positive Physical Exam Narrative He is alert and oriented x 3. No acute distress. 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 Patient is a very poor surgical candidate and surgical options would be quite limited given this picture. This issue seems to be lack of tone to the colon. I discussed the case with Dr. Mcduffie and neostigmine may be a viable option. I discussed this with the patient and he seemed interested. We discussed risk for bradycardia with neostigmine administration. Will discuss this with pharmacy. If he agreed to proceed, we will likely try this sometime tomorrow morning.
[2025-03-23] MEDS: TPN - Clinimix E 8%-14% Soln 2,000 ML with Multivitamins 10 ML, Trace Elements 1 ML, Fo... 63 ML IV (16:16)
[2025-03-23 16:54] LABS: Bedside Glucose 109 mg/dL (74-106)
[2025-03-23] MEDS: 0.9% Normal Saline (250mL Bag) 250 ML 15 ML IV (18:20)
[2025-03-23] MEDS: 0.9% Saline Lock 10 ML Syringe IV (21:38)
[2025-03-23 23:20] LABS: Bedside Glucose 106 mg/dL (74-106)
[2025-03-24] VITALS (10 sets, daily range): BP systolic 111–138; BP diastolic 52–65; PULSE 60–90; RESP 18–32; TEMP 36.2–36.7; O2SAT 96–99; BMI 15.5
[2025-03-24] MEDS: Cefepime HCl 1 GM in 0.9% Normal Saline (50mL MB+) 50 ML IV ×3 (05:39→23:10)
--- NOTE | 2025-03-24 05:50 | RAD_ITS ---
PROCEDURE: ABDOMEN SINGLE VIEW (PORTABLE) 03/24/2025 REASON FOR EXAM: NG PLACEMENT TECHNIQUE: Single view abdomen. COMPARISON: 03/21/2025. FINDINGS: Unchanged right pleural effusion. Unchanged passive atelectasis of the right lower lobe. Interval appearance of airspace consolidation in the right lower lobe, probably aspiration pneumonia. Enteric feeding tube is in good position. Unchanged diffuse dilatation of the small bowels, probably partial small bowel obstruction. Unchanged moderate diffuse spondylosis. There is no demonstrated free abdominal air. Normal visualized liver. Normal visualized spleen. Normal visualized kidneys. The soft tissue structures of the pelvis are unremarkable. RAD/Abdomen Single View (Portable) IMPRESSION: Unchanged right pleural effusion. Unchanged passive atelectasis of the right lower lobe. Interval appearance of airspace consolidation in the right lower lobe, probably aspiration pneumonia. Enteric feeding tube is in good position. Unchanged diffuse dilatation of the small bowels, probably partial small bowel obstruction. [facility]
[2025-03-24 06:12] LABS: Bedside Glucose 111 mg/dL (74-106)
[2025-03-24 07:13] LABS: ALB/GLOB Ratio 0.7 RATIO (0.9-2.4); AST(SGOT) 65 U/L (<=37); Alanine Aminotransfer ALT/SGPT 45 U/L (<=46); Albumin, Serum 2.2 g/dL (3.4-4.8); Alkaline Phosphatase 196 U/L (40-129); Anion Gap 9 (5-15); BUN 27 mg/dL (4-19); BUN/Creat Ratio 65.7 RATIO (10-20); Calcium,Total 9.1 mg/dL (7.6-11.0); Carbon Dioxide 23.9 mmol/L (21.0-32.0); Chloride 109 mmol/L (98-108); Creatinine, Serum 0.42 mg/dL (0.70-1.20); EST Glomerular Filtration Rate 112 (>60); Globulin 3.2 g/dL (2.2-4.2); Glucose 114 mg/dL (70-99); Magnesium 2.1 mg/dL (1.5-2.2); Phosphorus 1.9 mg/dL (2.7-4.5); Potassium 3.6 mmol/L (3.3-5.1); Protein, Total 5.4 g/dL (5.9-8.4); Sodium Level 141 mmol/L (133-145); Total Bilirubin 0.71 mg/dL (0.00-1.30)
--- NOTE | 2025-03-24 07:51 | PCM.PN.HOSP ---
Reason for Visit Reason for Visit: Diagnoses Acute posthemorrhagic anemia (03/06/25) Unspecified severe protein-calorie malnutrition (03/06/25) Unspecified protein-calorie malnutrition (03/06/25) Essential (primary) hypertension (03/06/25) Unspecified atrial fibrillation (03/06/25) Orthostatic hypotension (03/06/25) Pneumonia, unspecified organism (03/06/25) Chronic obstructive pulmonary disease, unspecified (03/06/25) Pleural effusion, not elsewhere classified (03/06/25) Respiratory failure, unspecified, unspecified whether with hypoxia or hypercapnia (03/06/25) Unspecified intestinal obstruction, unspecified as to partial versus complete obstruction (03/06/25) Gastrointestinal hemorrhage, unspecified (03/06/25) Unspecified abnormal finding in specimens from other organs, systems and tissues (03/06/25) Personal history of other specified conditions (03/06/25) 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 Says he has been using the IS. Objective Data Objective Data Vital Signs: Vital Signs Temp Pulse Resp BP Pulse Ox O2 Del Method O2 Flow Rate 36.4 C L 81 22 H 111/52 L 98 Airvo 40 03/24/25 05:35 03/24/25 05:35 03/24/25 05:35 03/24/25 05:35 03/24/25 05:35 03/24/25 05:50 03/24/25 05:50 FiO2 35 03/24/25 05:50 Oxygen Flow Rate (L/min) 40 Oxygen Delivery Method Airvo Weight: 50.4 kg Body Mass Index (BMI) 15.5 Intake & Output: Intake and Output for Last 24 Hours 03/22/25 03/23/25 03/24/25 23:59 23:59 23:59 Intake Total 2890.55 / 2890.55 2411.75 / 2411.75 50 / 50 Output Total 2975 / 3125 1750 / 1750 1200 / 1200 Balance -84.45 / -234.45 661.75 / 661.75 -1150 / -1150 Medical Nutrition Assessment Dietitian: Malnutrition Criteria Met Start: 03/07/25 15:56 Freq: Status: Active Protocol: Document 03/18/25 09:31 SLA (Rec: 03/18/25 09:31 [facility] [id number]) Nutrition Malnutrition Evidence of Yes Malnutrition Exists Malnutrition (severe Chronic ): Evidenced By Suboptimal Energy Intake (Severe),Weight Loss (Severe), Physical Changes (Moderate) Intake Problem Inadequate Oral Intake Status Inactive Problem Clinical Problem Chronic Disease or Condition Related Malnutrition Etiology severe protein-calorie malnutrition in the context of acute illness related to altered GI function and inability to take adequate energy/pro Signs/Symptoms as evidenced by 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 BMI 16.1 Status Active Problem Acute Disease or Injury Related Malnutrition Status Inactive Problem Recommendation Dietitian 1. Recommend advanced diet as tolerated to transitional Recommendations/ diet with goal of regular. Continue ONS w/ meals for Changes increased nutrition if consumed. 2. Will order bag #4: Clinimix E- 1.5L of 8% AA/14% Dextrose at 63ml/hr 3. Will monitor for signs of refeeding syndrome due to prolonged NPO. Lab / Micro Data 03/22/25 05:08 03/24/25 04:47 Labs: Laboratory Results - last 24 hr 03/23/25 11:30: POC Glucose 128 H 03/23/25 16:36: POC Glucose 109 H 03/23/25 21:41: POC Glucose 106 03/24/25 04:47: Sodium 141, Potassium 3.6, Chloride 109 H, Carbon Dioxide 23.9, Anion Gap 9, BUN 27 H, Creatinine 0.42 L, Estim Creat Clear Calc 56.00, Est GFR (MDRD) Non-Af 112, BUN/Creatinine Ratio 65.7 H, Glucose 114 H, Calcium 9.1, Phosphorus 1.9 L, Magnesium 2.1, Total Bilirubin 0.71, AST 65 H, ALT 45, Alkaline Phosphatase 196 H, Total Protein 5.4 L, Albumin 2.2 L, Globulin 3.2, Albumin/Globulin Ratio 0.7 L 03/24/25 05:54: POC Glucose 111 H Micro: Microbiology 03/06/25 09:24 Stool Stool Occult Blood (DESHAUN) - Final Occult Blood Positive Radiography Diagnostic Testing: Radiology Impression KUB X-Ray 03/24/25 05:50 IMPRESSION: Unchanged right pleural effusion. Unchanged passive atelectasis of the right lower lobe. Interval appearance of airspace consolidation in the right lower lobe, probably aspiration pneumonia. Enteric feeding tube is in good position. Unchanged diffuse dilatation of the small bowels, probably partial small bowel obstruction. Reading Location: [place] [id number] Physical Exam Const alert and no apparent distress HEENT head/scalp atraumatic and moist oral mucous membranes Resp normal respiratory effort and no retractions Resp Narrative: coarse BS. Cardio regular rate, regular rhythm, S1 normal heart sound and S2 normal heart sound GI normal to inspection, nondistended, normoactive bowel sounds, soft to palpation, non-tender and non-distended Extremity normal to inspection Neuro oriented x3, CN's II-XII intact bilaterally, moves all extremities, no focal motor deficits and no sensory deficits noted Sensorium / Orientation: awake and alert Assessment & Plan Assessment/Plan (1) Respiratory failure: PLAN: 2/2 aspiration. Has been on pip/tazo since 03/08, will DC. Start cefepime. On Airvo Encourage PEP previously had not been using it. Will given dose of IV furosemide ABG 7.49/37.9/103 03/23: Asked the patient if he has been using the incentive spirometer to which she said he has not. Said he does not remember talking about it. I assessed the patient's orientation he was alert and oriented x 3 but I feel that he was probably not being honest that he forgot because he said something later that contradicted that statement, that he was can get around to it. I emphasized that I spoke with him about the incentive spirometer with he and his daughters to help him. I strongly encouraged him to utilize the incentive spirometer not for the healthcare providers or even himself but for his family if he is trying to get better. I told him that if he is reluctant to do something as banal as using incentive spirometer that he is unlikely to follow through with therapy in a significant way that would overall benefit him and he may not thrive with therapy and may wind up requiring long-term placement elsewhere. Patient states that he is using the incentive spirometer but him not sure he actually is, as well as nursing. (2) SBO (small bowel obstruction): PLAN: recurrent General surgery following. NGT removed 03/16. Replaced 03/18 Concerning for stool burden contributing to SBO, so no plans for surgery at this time additionally, he is a very poor surgical candidate. Pt received enemas, Jalynly Surgeon concern about his tone. Patient received 2mg of neostigmine 03/24. No BM. PLan to monitor for BM. (3) GI bleed: PLAN: 2/ MWT. EGD on 03/07 that showed the MWT and treated with an argon laser, erosive gastropathy. Hemoglobin stable (4) Pleural effusion: PLAN: Right sided pleural effusion. Thoracentesis 03/07 removed 390 cc of fluid. Consistent with transudative effusion. Repeat thoracentesis had been ordered. Given the relatively low amount of fluid removed on the , it was transudative, CXR on the showed a small right sided pleural effusion--will discontinue given the risks at this time out weigh the benefits. Previously in April, it had shown mesothelial cells. Pathology was not sent this admission. Previously had been told by oncology that he did not have mesothelioma. Recommended outpt pulmonary follow up. (5) ABLA (acute blood loss anemia): PLAN: Hg 11.3 on the . 2/2 GIB from MWT. Down to 7.1. No need for transfusion at this time. Continue to monitor. (6) Protein calorie malnutrition: PLAN: Weight loss of 18kg since April 2024. Again, continue w TPN until eating more regularly. Renewed TPN again today. (7) Pneumonia: PLAN: Increased infiltrate on CXR. Has been on pip/tazo since the , will DC. Started cefepime on the . Plan to treat for 7 days but can be de-escalated to oral if you may be ready for discharge. Encourage PEP (8) Atrial fibrillation with RVR: PLAN: In NSR Holding off on OAC given GIB. Follow up outpatient for evaluation for Watchman. PLAN: Plan VTE prophylaxis with SCDs I am concerned about overall poor prognosis for this individual. If patient continues to fail to have any significant progression we will need to readdress goals of care with the patient and his family. Charges/Coding Visit Charges Inpatient E&M: 20620 Subs Hosp L2
[2025-03-24] MEDS: NEOSTIGMINE METHYLSULFATE IV ×8 (09:47→10:25)
[2025-03-24] MEDS: Pantoprazole Sodium 40 MG in 0.9% Normal Saline (100mL MB+) 100 ML 330 MG IV ×2 (09:52→22:19)
[2025-03-24] MEDS: Menthol/Lanolin/Calamine/Znox 113 GM Tube 1 APPLIC TOPICAL ×2 (09:55→22:27)
[2025-03-24 11:16] LABS: Bedside Glucose 120 mg/dL (74-106)
--- NOTE | 2025-03-24 11:23 | PCM.PN.SRG ---
Subjective Subjective Patient seen and examined earlier today. He had no new issues or complaints. He states he was passing some flatus but no bowel movements. We discussed neostigmine administration late yesterday and discussed that again this morning and he is agreeable to proceed. We discussed risks for bradycardia with this medication but feel that benefits may outweigh any risks Objective Data Objective Data Vital Signs: Vital Signs Temp Pulse Resp BP Pulse Ox O2 Del Method O2 Flow Rate 97.5 F L 60 32 H 138/64 H 96 Airvo 40 03/24/25 10:03/24/25 10:03/24/25 10:03/24/25 10:03/24/25 10:03/24/25 10:03/24/25 10:25 FiO2 35 03/24/25 10:25 Oxygen Flow Rate (L/min) 40 Oxygen Delivery Method Airvo Weight: 111 lb 1.808 oz Body Mass Index (BMI) 15.5 Intake & Output: Intake and Output for Last 24 Hours 03/22/25 03/23/25 03/24/25 23:59 23:59 23:59 Intake Total 2890.55 / 2890.55 2411.75 / 2411.75 150 / 150 Output Total 2975 / 3125 1750 / 1750 1200 / 1200 Balance -84.45 / -234.45 661.75 / 661.75 -1050 / -1050 Medical Nutrition Assessment Dietitian: Malnutrition Criteria Met Start: 03/07/25 15:56 Freq: Status: Active Protocol: Document 03/18/25 09:31 JORDAN (Rec: 03/18/25 09:31 JORDAN [id number]) Nutrition Malnutrition Evidence of Yes Malnutrition Exists Malnutrition (severe Chronic ): Evidenced By Suboptimal Energy Intake (Severe),Weight Loss (Severe), Physical Changes (Moderate) Intake Problem Inadequate Oral Intake Status Inactive Problem Clinical Problem Chronic Disease or Condition Related Malnutrition Etiology severe protein-calorie malnutrition in the context of acute illness related to altered GI function and inability to take adequate energy/pro Signs/Symptoms as evidenced by 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 BMI 16.1 Status Active Problem Acute Disease or Injury Related Malnutrition Status Inactive Problem Recommendation Dietitian 1. Recommend advanced diet as tolerated to transitional Recommendations/ diet with goal of regular. Continue ONS w/ meals for Changes increased nutrition if consumed. 2. Will order bag #4: Clinimix E- 1.5L of 8% AA/14% Dextrose at 63ml/hr 3. Will monitor for signs of refeeding syndrome due to prolonged NPO. Lab / Micro Data 03/22/25 05:08 03/24/25 04:47 Labs: Laboratory Results - last 24 hr 03/23/25 11:30: POC Glucose 128 H 03/23/25 16:36: POC Glucose 109 H 03/23/25 21:41: POC Glucose 106 03/24/25 04:47: Sodium 141, Potassium 3.6, Chloride 109 H, Carbon Dioxide 23.9, Anion Gap 9, BUN 27 H, Creatinine 0.42 L, Estim Creat Clear Calc 56.00, Est GFR (MDRD) Non-Af 112, BUN/Creatinine Ratio 65.7 H, Glucose 114 H, Calcium 9.1, Phosphorus 1.9 L, Magnesium 2.1, Total Bilirubin 0.71, AST 65 H, ALT 45, Alkaline Phosphatase 196 H, Total Protein 5.4 L, Albumin 2.2 L, Globulin 3.2, Albumin/Globulin Ratio 0.7 L 03/24/25 05:54: POC Glucose 111 H 03/24/25 10:57: POC Glucose 120 H Micro: Microbiology 03/06/25 09:24 Stool Stool Occult Blood (DESHAUN) - Final Occult Blood Positive Radiography Diagnostic Testing: Radiology Impression KUB X-Ray 03/24/25 05:50 IMPRESSION: Unchanged right pleural effusion. Unchanged passive atelectasis of the right lower lobe. Interval appearance of airspace consolidation in the right lower lobe, probably aspiration pneumonia. Enteric feeding tube is in good position. Unchanged diffuse dilatation of the small bowels, probably partial small bowel obstruction. Reading [facility] [id number] Physical Exam Narrative He is awake and alert. No acute distress. Abdomen is soft and nontender Assessment & Plan Assessment/Plan (1) SBO (small bowel obstruction): PLAN: Plan The patient is a 74-year-old male with ongoing partial small bowel obstruction likely secondary to impacted stool in cecum. Patient is a very poor surgical candidate due to multiple comorbidities. We elected to proceed with an attempt at neostigmine to evacuate his colon. This was performed at the bedside today. A total of 2 mg of neostigmine were given in intervals every 5 minutes. Patient developed some abdominal cramping and increased oral secretions but did not have any bowel movement. We did note that his NG tube output did increase during this time. The recommended dose for neostigmine and this application is a max of 2 mg. We elected to stop after 2 mg and await for further results. Hopefully this will stimulate a bowel movement sometime today. Otherwise recommend NG and n.p.o./TPN.
[2025-03-24] MEDS: Fat Emulsions 20% 250 ML IV (15:58)
[2025-03-24] MEDS: TPN - Clinimix E 8%-14% Soln 2,000 ML with Multivitamins 10 ML, Trace Elements 1 ML, Fo... 63 ML IV (15:59)
[2025-03-24 17:51] LABS: Bedside Glucose 114 mg/dL (74-106)
[2025-03-25] VITALS (9 sets, daily range): BP systolic 114–133; BP diastolic 56–71; PULSE 83–97; RESP 15–32; TEMP 36.2–36.7; O2SAT 95–100; BMI 15.4; BMI 14.7
[2025-03-25 02:24] LABS: Bedside Glucose 122 mg/dL (74-106)
[2025-03-25] MEDS: Cefepime HCl 1 GM in 0.9% Normal Saline (50mL MB+) 50 ML IV ×3 (05:09→21:58)
[2025-03-25 06:52] LABS: Absolute Lymphocyte Count 0.37 X10^3/uL (0.83-4.51); Basophil# 0.02 X10^3/uL; Basophil% 0.3 % (0-1); Eosinophil# 0.04 X10^3/uL; Eosinophils% 0.5 % (0-5); Hematocrit 23.4 % (40-54); Hemoglobin 7.2 g/dL (13.0-16.5); Lymphocyte # 0.37 X10^3/ul (0.83-4.51); Lymphocyte % 4.8 % (19-41); Mean Corp Hgb Conc 30.8 g/dL (32-36); Mean Corpuscular Hgb 27.1 pg (27.0-32.0); Mean Platelet Vol. 11.5 fl (6.2-12.0); Monocyte# 0.31 X10^3/uL; NRBC Flagged by Analyzer 0 % (0-5); Neutrophil # 6.97 X10^3/uL (2.7-7.7); Neutrophil % 89.8 % (47-70); POSITIVE DIFFERENTIAL YES; Platelet Count 326 K/mm3 (150-450); RBC Distribution Width CV 19.6 % (11.6-14.6); RBC Distribution Width SD 61.9 fl (35.1-43.9); Red Blood Count 2.66 M/mm3 (4.6-6.2); White Blood Count 7.8 K/mm3 (4.4-11.0)
[2025-03-25 06:57] LABS: Bedside Glucose 132 mg/dL (74-106)
[2025-03-25 07:04] LABS: Anion Gap 8 (5-15); BUN 28 mg/dL (4-19); BUN/Creat Ratio 66.7 RATIO (10-20); Carbon Dioxide 25.1 mmol/L (21.0-32.0); Chloride 109 mmol/L (98-108); Creatinine, Serum 0.41 mg/dL (0.70-1.20); EST Glomerular Filtration Rate 112 (>60); Estimated Creatinine Clearance 55.78 ml/min (50-250); Glucose 131 mg/dL (70-99); Potassium 3.5 mmol/L (3.3-5.1); Sodium Level 143 mmol/L (133-145)
--- NOTE | 2025-03-25 08:28 | CT_ITS ---
PROCEDURE: ABDOMEN/PELVIS WITH CONTRAST 03/25/2025 REASON FOR EXAM: SBO, PO AND IV CONTRAST TECHNIQUE: ABDOMEN/PELVIS WITH CONTRAST. Coronal and Sagittal reconstruction series were provided. ORAL CONTRAST TYPE: Gastrografin AMOUNT: 30 mL CONTRAST: Isovue-300 VOLUME: 75 mL One or more dose reduction techniques were used (e.g., Automated exposure control, adjustment of the mA and/or kV according to patient size, use of iterative reconstruction technique. RADIATION DOSE SUMMARY: CTDlvol: 19.95 and 5.20 mGy DLP: 305.68 mGycm COMPARISON: HERLINDA text Siomara navigator nasal. I have a patient name Dc GÓMEZ you in a.m. from [facility] as an abnormal abdomen CT possibly life-threatening and macro make a call report thickening either read my report and call me back if they have questions or or feel directly connected FINDINGS: Lung bases: Moderate-size focus of airspace consolidation air bronchograms the right lower lobe. Question appearance of slit pleura sign of the empyema in the base of the right hemithorax. Left pleural effusion is small to moderate.. No consolidating airspace disease in the left lower lobe. Liver: Unremarkable. Gallbladder: Not identified. Spleen: Unremarkable. Pancreas: Unremarkable Adrenals: Not seen well, but grossly unremarkable Kidneys: Normal positioned and appearance. Bladder: Ortega catheter present. Reproductive Organs: Not seen well Bowel: Air and contrast dilated loops of small bowel the left abdomen. Some distal small bowel loops appear normal caliber indicating obstruction. NG tube is noted in the stomach in good position. The ascending colon is dilated containing feces question of air within the wall of the ascending colon. Favor life threatening pneumatosis other than simply benign pneumatosis. No air in the biliary tree or portal venous system Appendix: Not seen well Lymph nodes: None appreciated. 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 Dilated loops of sm all bowel in the left abdomen could represent small-bowel obstruction Reading [facility]
--- NOTE | 2025-03-25 08:29 | PCM.PN.SRG ---
Subjective Subjective Patient is reporting that he has had no bowel movements but he is passing some flatus. He is not complaining of any abdominal pain. Objective Data Objective Data Vital Signs: Vital Signs Temp Pulse Resp BP Pulse Ox O2 Del Method O2 Flow Rate 97.9 F 89 30 H 119/56 L 98 High Flow 2 03/25/25 06:43 03/25/25 06:43 03/25/25 06:43 03/25/25 06:43 03/25/25 06:43 03/25/25 08:06 03/25/25 08:06 FiO2 35 03/24/25 14:00 Oxygen Flow Rate (L/min) 2 Oxygen Delivery Method High Flow Weight: 105 lb 11.2 oz Body Mass Index (BMI) 14.7 Intake & Output: Intake and Output for Last 24 Hours 03/23/25 03/24/25 03/25/25 23:59 23:59 23:59 Intake Total 2411.75 / 2411.75 1843.1 / 1923.1 420 / 420 Output Total 1750 / 1750 3175 / 3975 1050 / 1050 Balance 661.75 / 661.75 -1331.9 / -2051.9 -630 / -630 Medical Nutrition Assessment Dietitian: Malnutrition Criteria Met Start: 03/07/25 15:56 Freq: Status: Active Protocol: Document 03/18/25 09:31 JORDAN (Rec: 03/18/25 09:31 SLA [id number]) Nutrition Malnutrition Evidence of Yes Malnutrition Exists Malnutrition (severe Chronic ): Evidenced By Suboptimal Energy Intake (Severe),Weight Loss (Severe), Physical Changes (Moderate) Intake Problem Inadequate Oral Intake Status Inactive Problem Clinical Problem Chronic Disease or Condition Related Malnutrition Etiology severe protein-calorie malnutrition in the context of acute illness related to altered GI function and inability to take adequate energy/pro Signs/Symptoms as evidenced by unintentional weight loss 22% body weight 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 BMI 16.1 Status Active Problem Acute Disease or Injury Related Malnutrition Status Inactive Problem Recommendation Dietitian 1. Recommend advanced diet as tolerated to transitional Recommendations/ diet with goal of regular. Continue ONS w/ meals for Changes increased nutrition if consumed. 2. Will order bag #4: Clinimix E- 1.5L of 8% AA/14% Dextrose at 63ml/hr 3. Will monitor for signs of refeeding syndrome due to prolonged NPO. Lab / Micro Data 03/25/25 05:46 03/25/25 05:46 Labs: Laboratory Results - last 24 hr 03/24/25 10:57: POC Glucose 120 H 03/24/25 17:34: POC Glucose 114 H 03/25/25 02:03: POC Glucose 122 H 03/25/25 05:46: WBC 7.8, RBC 2.66 L, Hgb 7.2 L, Hct 23.4 L, MCV 88.0, MCH 27.1, MCHC 30.8 L, RDW Std Deviation 61.9 H, RDW Coeff of Wilbert 19.6 H, Plt Count 326, MPV 11.5, Immature Gran % (Auto) 0.600, Neut % (Auto) 89.8 H, Lymph % (Auto) 4.8 L, Ballard % (Auto) 4.0, Eos % (Auto) 0.5, Baso % (Auto) 0.3, Absolute Neuts (auto) 7.0, Absolute Lymphs (auto) 0.37 L, Nucleated RBC % 0, Sodium 143, Potassium 3.5, Chloride 109 H, Carbon Dioxide 25.1, Anion Gap 8, BUN 28 H, Creatinine 0.41 L, Estim Creat Clear Calc 55.78, Est GFR (MDRD) Non-Af 112, BUN/Creatinine Ratio 66.7 H, Glucose 131 H, Calcium 9.0 03/25/25 06:36: POC Glucose 132 H Micro: Microbiology 03/06/25 09:24 Stool Stool Occult Blood (DESHAUN) - Final Occult Blood Positive Physical Exam Const oriented x3 and no apparent distress Resp normal respiratory effort GI soft to palpation and non-tender Assessment & Plan Assessment/Plan (1) SBO (small bowel obstruction): PLAN: Patient has a possible small bowel obstruction. It has been almost a week since his last CAT scan. I will order a CT scan with oral and IV contrast today to evaluate the bowel. If there is still high fecal burden I will order something from above and below. Emerson Miller MD Pager: [facility] [address] [place], [place] [address], [address] [place] [phone] Office:
[2025-03-25] MEDS: Menthol/Lanolin/Calamine/Znox 113 GM Tube 1 APPLIC TOPICAL ×2 (08:50→21:58)
[2025-03-25] MEDS: Pantoprazole Sodium 40 MG in 0.9% Normal Saline (100mL MB+) 100 ML 330 MG IV ×2 (08:51→22:00)
[2025-03-25] MEDS: Ondansetron 4 MG/2 ML Vial IV (09:04)
[2025-03-25 12:25] LABS: Bedside Glucose 112 mg/dL (74-106)
--- NOTE | 2025-03-25 14:39 | PCM.PN.HOSP ---
Subjective Subjective Continues to be n.p.o., the neostigmine did not seem to help yesterday, CT scan this morning shows pneumatosis with continued partial small bowel obstruction and a large cecal stool burden Objective Data Objective Data Vital Signs: Vital Signs Temp Pulse Resp BP Pulse Ox O2 Del Method O2 Flow Rate 97.2 F L 83 15 114/63 100 Nasal Cannula 2 03/25/25 11:00 03/25/25 11:00 03/25/25 11:00 03/25/25 11:00 03/25/25 11:00 03/25/25 11:00 03/25/25 11:00 FiO2 35 03/24/25 14:00 Oxygen Flow Rate (L/min) 2 Oxygen Delivery Method Nasal Cannula Weight: 105 lb 11.2 oz Body Mass Index (BMI) 14.7 Intake & Output: Intake and Output for Last 24 Hours 03/24/25 03/25/25 03/26/25 03:59 03:59 03:59 Intake Total 2161.75 / 2161.75 1923.1 / 1923.1 490 / 490 Output Total 1600 / 1600 3975 / 3975 250 / 250 Balance 561.75 / 561.75 -2051.9 / -2051.9 240 / 240 Medical Nutrition Assessment Dietitian: Malnutrition Criteria Met Start: 03/07/25 15:56 Freq: Status: Active Protocol: Document 03/18/25 09:31 JORDAN (Rec: 03/18/25 09:31 JORDAN [id number]) Nutrition Malnutrition Evidence of Yes Malnutrition Exists Malnutrition (severe Chronic ): Evidenced By Suboptimal Energy Intake (Severe),Weight Loss (Severe), Physical Changes (Moderate) Intake Problem Inadequate Oral Intake Status Inactive Problem Clinical Problem Chronic Disease or Condition Related Malnutrition Etiology severe protein-calorie malnutrition in the context of acute illness related to altered GI function and inability to take adequate energy/pro Signs/Symptoms as evidenced by unintentional weight loss 22% body weight 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 BMI 16.1 Status Active Problem Acute Disease or Injury Related Malnutrition Status Inactive Problem Recommendation Dietitian 1. Recommend advanced diet as tolerated to transitional Recommendations/ diet with goal of regular. Continue ONS w/ meals for Changes increased nutrition if consumed. 2. Will order bag #4: Clinimix E- 1.5L of 8% AA/14% Dextrose at 63ml/hr 3. Will monitor for signs of refeeding syndrome due to prolonged NPO. Lab / Micro Data 03/25/25 05:46 03/25/25 05:46 Labs: Laboratory Results - last 24 hr 03/24/25 17:34: POC Glucose 114 H 03/25/25 02:03: POC Glucose 122 H 03/25/25 05:46: WBC 7.8, RBC 2.66 L, Hgb 7.2 L, Hct 23.4 L, MCV 88.0, MCH 27.1, MCHC 30.8 L, RDW Std Deviation 61.9 H, RDW Coeff of Wilbert 19.6 H, Plt Count 326, MPV 11.5, Immature Gran % (Auto) 0.600, Neut % (Auto) 89.8 H, Lymph % (Auto) 4.8 L, Mccone % (Auto) 4.0, Eos % (Auto) 0.5, Baso % (Auto) 0.3, Absolute Neuts (auto) 7.0, Absolute Lymphs (auto) 0.37 L, Nucleated RBC % 0, Sodium 143, Potassium 3.5, Chloride 109 H, Carbon Dioxide 25.1, Anion Gap 8, BUN 28 H, Creatinine 0.41 L, Estim Creat Clear Calc 55.78, Est GFR (MDRD) Non-Af 112, BUN/Creatinine Ratio 66.7 H, Glucose 131 H, Calcium 9.0 03/25/25 06:36: POC Glucose 132 H 03/25/25 12:08: POC Glucose 112 H Micro: Microbiology 03/06/25 09:24 Stool Stool Occult Blood (DESHAUN) - Final Occult Blood Positive Radiography Diagnostic Testing: Radiology Impression Abdomen/Pelvis CT 03/25/25 08:28 IMPRESSION: Pneumatosis in the colon wall suspected, could be setting. Dilated loops of small bowel in the left abdomen could represent small-bowel obstruction Reading Location[facility] Physical Exam Narrative General: Alert, Oriented x3, Cooperative, No apparent distress, protein calorie malnutrition with temporal wasting and cachexia HEENT: Atraumatic, PERRLA, EOMI, Normocephalic, NG tube in place Oral: Moist Mucosa Neck: Supple, No JVD Lungs: Diminished, Normal air movement, No rhonchi, No wheeze, No rales, crackles right lower lobe Cardiovascular: Regular rate, Regular Rhythm, Normal S1, Normal S2, No murmurs Abdomen: Soft, Non Tender, Non-Distended, No Hepato-splenomegaly Extremities: No edema, Capillary Refill Less than 3 Seconds Skin: No rashes, No breakdown Musculoskeletal: No Tenderness to Palpation of Joints or Extremities Neurological: No focal neurological deficits, moves extremities Psych/Mental Status: Flat Assessment & Plan Assessment/Plan (1) Respiratory failure: (2) SBO (small bowel obstruction): (3) GI bleed: (4) Pleural effusion: (5) Protein calorie malnutrition: (6) Pneumonia: (7) Atrial fibrillation with RVR: PLAN: Plan 1. Acute hypoxic respiratory failure secondary to aspiration with possible empyema ? He was found to have aspiration pneumonia on admission was started on Zosyn and then transition to cefepime ? He had a thoracentesis on 03/07/2025 on the right for pleural effusion which came back positive for a transudative effusion, he previously had a thoracentesis which showed mesothelial cells however oncology at the time did not feel that he did not have mesothelioma ? He had been on Airvo, however he was also given intermittent dosing of Lasix ? Will continue to try to wean his oxygen requirement, and continue to encourage incentive spirometry and Pep therapy ? The CT scan today which demonstrated the pneumatosis also called empyema on his right lower lobe which is likely given the aspiration event with his pleural effusion. His respiratory status is improved today and given the fact that he is not a surgical candidate from his stool would likely not transfer to a tertiary center for his empyema 2. Acute blood loss anemia secondary to GI bleed in the setting of SBO and colonic obstruction with right sided pneumatosis/severe protein calorie malnutrition ? He has had recurrent issues with small bowel obstructions in the past and was also noted to have a large stool ball in his right cecum ? He is not a great surgical candidate given his malnutrition ? General Surgery did attempt neostigmine yesterday without much success and today CT scan of his abdomen pelvis shows air in the colonic wall consistent with pneumatosis, he is not that sick from vital signs as he is normal blood pressure, afebrile, no leukocytosis, denies any significant abdominal pain ? Will have a discussion today with family about potentially proceeding with hospice given how poor a surgical candidate he is. The daughters do not want him to have any surgery as I do not think he would do well, however he has been insistent on being a full code ? He has been losing weight steadily and he continues to lose weight while here, currently on TPN which is not a long-term solution 3. A-fib with RVR ? Currently normal sinus rhythm DVT: SCDs Charges/Coding Visit Charges Inpatient E&M: 41684 Subs Hosp L2
[2025-03-25] MEDS: TPN - Clinimix E 8%-14% Soln 2,000 ML with Multivitamins 10 ML, Trace Elements 1 ML, Fo... 84 ML IV (15:50)
--- NOTE | 2025-03-25 16:01 | PCM.PN.BLA ---
Progress Note Patient had repeat CT scan today which showed possible pneumatosis of the right colon and the stool that was in the right colon has not moved. There is also concern for small bowel obstruction and empyema. After discussing this with the patient and the patient's daughter they also discussed with family and decided to go with hospice care. Emerson Miller MD Pager: [facility] [address] [place] [address] [address] [place] [address] Office:
[2025-03-25 17:48] LABS: Ferritin 1260 ng/mL (37-417); Iron 19 ug/dL (65-175); Iron Binding Capacity,Unsat 111 ug/dL (228-428)
[2025-03-25 17:49] LABS: Iron Binding Capacity,Total 130 ug/dL (250-450); PERCENT IRON SATURATION 14.6 % (9-55)
[2025-03-25 18:30] LABS: Bedside Glucose 123 mg/dL (74-106)
[2025-03-26 00:49] LABS: Bedside Glucose 122 mg/dL (74-106)
[2025-03-26 04:00] VITALS: BP 125/70; PULSE 86; RESP 22; TEMP 36.4; O2SAT 93
[2025-03-26 05:10] VITALS: BMI 15.9
[2025-03-26] MEDS: Cefepime HCl 1 GM in 0.9% Normal Saline (50mL MB+) 50 ML IV (05:51)
[2025-03-26 06:37] LABS: Bedside Glucose 129 mg/dL (74-106)
[2025-03-26 07:50] LABS: Magnesium 2.2 mg/dL (1.5-2.2); Phosphorus 2.4 mg/dL (2.7-4.5)
[2025-03-26 07:51] VITALS: O2SAT 98
[2025-03-26] MEDS: Pantoprazole Sodium 40 MG in 0.9% Normal Saline (100mL MB+) 100 ML 330 MG IV (08:44)
[2025-03-26 08:45] VITALS: BP 124/68; PULSE 86; RESP 12; TEMP 36.7; O2SAT 99
--- NOTE | 2025-03-26 12:49 | PN.HOSP_ITS ---
Subjective Subjective Continue with NG tube and TPN for now, awaiting evaluation by hospice Objective Data Objective Data Vital Signs: Vital Signs Temp Pulse Resp BP Pulse Ox O2 Del Method O2 Flow Rate 98.0 F 86 12 124/68 H 99 Nasal Cannula 2 03/26/25 08:45 03/26/25 08:45 03/26/25 08:45 03/26/25 08:45 03/26/25 08:45 03/26/25 08:45 03/26/25 08:45 FiO2 35 03/24/25 14:00 Oxygen Flow Rate (L/min) 2 Oxygen Delivery Method Nasal Cannula Weight: 113 lb 15.664 oz Body Mass Index (BMI) 15.9 Intake & Output: Intake and Output for Last 24 Hours 03/25/25 03/26/25 03/27/25 03:59 03:59 03:59 Intake Total 1923.1 / 1923.1 2502.85 / 2502.85 210 / 210 Output Total 3975 / 3975 625 / 625 700 / 700 Balance -2051.9 / -2051.9 1877.85 / 1877.85 -490 / -490 Medical Nutrition Assessment Dietitian: Malnutrition Criteria Met Start: 03/07/25 15:56 Freq: Status: Active Protocol: Document 03/18/25 09:31 JORDAN (Rec: 03/18/25 09:31 SLA [id number]) Nutrition Malnutrition Evidence of Yes Malnutrition Exists Malnutrition (severe Chronic ): Evidenced By Suboptimal Energy Intake (Severe),Weight Loss (Severe), Physical Changes (Moderate) Intake Problem Inadequate Oral Intake Status Inactive Problem Clinical Problem Acute Disease or Injury Related Malnutrition Status Inactive Problem Chronic Disease or Condition Related Malnutrition Etiology severe protein-calorie malnutrition in the context of acute illness related to altered GI function and inability to take adequate energy/pro Signs/Symptoms as evidenced by 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 BMI 16.1 Status Active Problem Recommendation Dietitian 1. Recommend advanced diet as tolerated to transitional Recommendations/ diet with goal of regular. Continue ONS w/ meals for Changes increased nutrition if consumed. 2. Will order bag #4: Clinimix E- 1.5L of 8% AA/14% Dextrose at 63ml/hr 3. Will monitor for signs of refeeding syndrome due to prolonged NPO. Lab / Micro Data 03/25/25 05:46 03/25/25 05:46 Labs: Laboratory Results - last 24 hr 03/25/25 05:46: Iron 19 L, TIBC 130 L, Iron Saturation 14.6, Unsaturated IBC 111 L, Ferritin 1260 H 03/25/25 18:11: POC Glucose 123 H 03/26/25 00:15: POC Glucose 122 H 03/26/25 05:57: POC Glucose 129 H 03/26/25 07:19: Phosphorus 2.4 L, Magnesium 2.2 Micro: Microbiology 03/06/25 09:24 Stool Stool Occult Blood (DESHAUN) - Final Occult Blood Positive Radiography Diagnostic Testing: Radiology Impression Abdomen/Pelvis CT 03/25/25 08:28 IMPRESSION: Pneumatosis in the colon wall suspected, could be setting. Dilated loops of small bowel in the left abdomen could represent small-bowel obstruction Reading Location[facility] Physical Exam Narrative General: Alert, Oriented x3, Cooperative, No apparent distress, protein calorie malnutrition with temporal wasting and cachexia HEENT: Atraumatic, PERRLA, EOMI, Normocephalic, NG tube in place Oral: Moist Mucosa Neck: Supple, No JVD Lungs: Diminished, Normal air movement, No rhonchi, No wheeze, No rales, crackles right lower lobe Cardiovascular: Regular rate, Regular Rhythm, Normal S1, Normal S2, No murmurs Abdomen: Soft, Non Tender, Non-Distended, No Hepato-splenomegaly Extremities: No edema, Capillary Refill Less than 3 Seconds Skin: No rashes, No breakdown Musculoskeletal: No Tenderness to Palpation of Joints or Extremities Neurological: No focal neurological deficits, moves extremities Psych/Mental Status: Flat Assessment & Plan Assessment/Plan (1) Respiratory failure: (2) SBO (small bowel obstruction): (3) GI bleed: (4) Pleural effusion: (5) Protein calorie malnutrition: (6) Pneumonia: (7) Atrial fibrillation with RVR: PLAN: Plan 1. Acute hypoxic respiratory failure secondary to aspiration with possible empyema ? He was found to have aspiration pneumonia on admission was started on Zosyn and then transition to cefepime ? He had a thoracentesis on 03/07/2025 on the right for pleural effusion which came back positive for a transudative effusion, he previously had a thoracentesis which showed mesothelial cells however oncology at the time did not feel that he did not have mesothelioma ? He had been on Airvo, however he was also given intermittent dosing of Lasix ? Will continue to try to wean his oxygen requirement, and continue to encourage incentive spirometry and Pep therapy ? The CT scan demonstrated the pneumatosis also called empyema on his right lower lobe which is likely given the aspiration event with his pleural effusion. ? After the discussion with family, awaiting for hospice consultation evaluation 2. Acute blood loss anemia secondary to GI bleed in the setting of SBO and colonic obstruction with right sided pneumatosis/severe protein calorie malnutrition ? He has had recurrent issues with small bowel obstructions in the past and was also noted to have a large stool ball in his right cecum ? He is not a great surgical candidate given his malnutrition ? General Surgery did attempt neostigmine without much success and today CT scan of his abdomen pelvis shows air in the colonic wall consistent with pneumatosis, he is not that sick from vital signs as he is normal blood pressure, afebrile, no leukocytosis, denies any significant abdominal pain ? He has been losing weight steadily and he continues to lose weight while here, currently on TPN which is not a long-term solution 3. A-fib with RVR ? Currently normal sinus rhythm DVT: SCDs Charges/Coding Visit Charges Inpatient E&M: 43825 Subs Hosp L2
--- NOTE | 2025-03-26 13:55 | DS.PCM_ITS ---
Providers Date of Admission: 03/06/25 Primary Care Physician: Dr. Brent Martinez, DO Consultations 03/06/25 13:43 Consult: Gastroenterology Routine Consulting Provider: [facility] Reason for Consult: small bowel obstruction, GI bleed EMERGENT Consult: No Notified: Yes Date Notified: 03/06/25 Time Notified: 13:44 Method of Notification: Text 03/08/25 07:21 Consult: Sales Special Agent / Pulmonary Medicine Routine Consulting Provider: [facility] Reason for Consult: bilateral pleural effusion EMERGENT Consult: No MD Notified: Yes Date Notified: 03/08/25 Time Notified: 07:22 Method of Notification: Text 03/10/25 11:53 Consult: General Surgery Routine Consulting Provider: Tono Dawson Reason for Consult: small bowel obstruction EMERGENT Consult: No Notified: Yes Date Notified: 03/10/25 Time Notified: 11:53 Method of Notification: Text 03/11/25 08:38 Consult: Sales Special Agent / Pulmonary Medicine Routine Consulting Provider: [facility]Pulmonary Med Reason for Consult: Hypotension, tachycardia, Large peural effusion EMERGENT Consult: No MD Notified: Yes Date Notified: 03/11/25 Time Notified: 09:04 Method of Notification: Answering Service 03/12/25 08:25 Consult: Cardiology Routine Consulting Provider: Shaquille Conteh Reason for Consult: Afib RVR, converted to sinus tachcardia EMERGENT Consult: No Notified: Yes Date Notified: 03/12/25 Time Notified: 08:25 Method of Notification: Text 03/25/25 16:29 Consult: Hospice / Palliative Care Routine Consulting Provider: [facility] Reason for Consult: Hospice EMERGENT Consult: No MD Notified: Yes Date Notified: 03/25/25 Time Notified: 16:54 Method of Notification: Answering Service Reason For Visit: SMALL BOWEL OBSTRUCTION, BILATERAL PLEURAL Diagnosis Discharge Diagnosis (1) Respiratory failure: Status: Acute Code(s): J96.90 - Respiratory failure, unspecified, unspecified whether with hypoxia or hypercapnia (2) SBO (small bowel obstruction): Status: Acute Code(s): K56.609 - Unspecified intestinal obstruction, unspecified as to partial versus complete obstruction (3) GI bleed: Status: Acute Code(s): K92.2 - Gastrointestinal hemorrhage, unspecified (4) Pleural effusion: Status: Acute Code(s): J90 - Pleural effusion, not elsewhere classified (5) Protein calorie malnutrition: Status: Acute Code(s): E46 - Unspecified protein-calorie malnutrition (6) Pneumonia: Status: Acute Code(s): J18.9 - Pneumonia, unspecified organism (7) Atrial fibrillation with RVR: Status: Acute Code(s): I48.91 - Unspecified atrial fibrillation Medications at Discharge Home Medications pravastatin 40 mg tablet 40 mg PO QHS high cholesterol 01/16/18 aspirin 81 mg tablet,delayed release (Adult Low Dose Aspirin) 81 mg PO DAILY heart health 08/17/18 escitalopram oxalate 10 mg tablet 10 mg PO DAILY depression 02/23/25 food supplemt, lactose-reduced 0.08 gram-1.5 kcal/mL oral liquid (Ensure Plus High Protein) 120 ml PO 4X/DAY supplement #0 mL 02/27/25 midodrine 5 mg tablet 10 mg (2 x 5 mg) PO TIDCM blood pressure #0 tabs 02/27/25 acetaminophen 325 mg tablet 650 mg PO Q4H PRN Fever, pain 1-07/2103/06/25 albuterol sulfate 2.5 mg/3 mL (0.083 %) solution for nebulization 2.5 mg inhalation Q2H PRN Dyspnea, wheezing 03/06/25 ipratropium 0.5 mg-albuterol 3 mg (2.5 mg base)/3 mL nebulization soln 3 ml inhalation Q6H PRN dyspnea/wheezing 03/06/25 tamsulosin 0.4 mg capsule 0.8 mg PO 1730 prostate 03/06/25 Hospital Course Procedures 2-D Echocardiogram and Thoracentesis Summary of Care Provided Minutes Spent on Discharge: 33 Hospital Course: Per HPI: BUZZ PUGH, is a 74 M with a PMH as outlined who presents fron the TCU with a complaint of coffee ground emesis. He was recently on admission in the hospital for syncope and failure to thrive and placed on midodrine for orthostatic hypotension. He was discharged on 02/27/2025 to TCU. In the TCU today, he had emesis and it was coffee ground so he was brought into the ED. He is not on any blood thinners nor does he have a history of peptic ulcer disease. dark stools or any hematemesis and denied any abdominal pain. He admits. He denied an review of symptoms otherwise negative. Vitals in the ED were blood pressure of 119/65, pulse rate of 71 temperature of 98 Fahrenheit. Respirate rate was 19 and he was saturating at 97% on room air. CBC showed hemoglobin of 9.4 with WBC of 8.6 and platelets of 443. Chemistry was unremarkable. Urinalysis showed 25 leukocyte esterase but no nitrites or bacteria. CT of the abdomen and pelvis showed severe fecal impaction without evidence of perforation. Diffuse distention with borderline dilatation of the small bowel loops likely secondary to stool burden and progression of right lower lobe consolidation and increased size of the small right and moderate left pleural effusion with pleural nodularity with findings representing either pneumonitis or pneumonia however pulmonary neoplasm would be an additional consideration. He has been admitted to be managed for small bowel ileus possible GI bleed as well as recurrent bilateral pleural effusion with concern for underlying malignancy. Hospital Course: 1. Acute hypoxic respiratory failure secondary to aspiration with possible empyema ? He was found to have aspiration pneumonia on admission was started on Zosyn and then transition to cefepime ? He had a thoracentesis on 03/07/2025 on the right for pleural effusion which came back positive for a transudative effusion, he previously had a thoracentesis which showed mesothelial cells however oncology at the time did not feel that he did not have mesothelioma ? He had been on Airvo, however he was also given intermittent dosing of Lasix ? Will continue to try to wean his oxygen requirement, and continue to encourage incentive spirometry and Pep therapy ? The CT scan demonstrated the pneumatosis also called empyema on his right lower lobe which is likely given the aspiration event with his pleural effusion. ? He met with hospice today and they agreed to transport to the inpatient unit 2. Acute blood loss anemia secondary to GI bleed from a [place] tear in the setting of SBO and colonic obstruction with right sided pneumatosis/severe protein calorie malnutrition ? He has had recurrent issues with small bowel obstructions in the past and was also noted to have a large stool ball in his right cecum ? He is not a great surgical candidate given his malnutrition ? EGD on 03/07/2025 with a [place] tear and erosive gastropathy ? General Surgery did attempt neostigmine without much success and today CT scan of his abdomen pelvis shows air in the colonic wall consistent with pneumatosis, he is not that sick from vital signs as he is normal blood pressure, afebrile, no leukocytosis, denies any significant abdominal pain ? He has been losing weight steadily and he continues to lose weight while here, currently on TPN which is not a long-term solution 3. A-fib with RVR ? Currently normal sinus rhythm Medical Records Data Medical Nutrition Assessment Dietitian: Malnutrition Criteria Met Start: 03/07/25 15:56 Freq: Status: Active Protocol: Document 03/18/25 09:31 SLA (Rec: 03/18/25 09:31 SLA [id number]) Nutrition Malnutrition Evidence of Yes Malnutrition Exists Malnutrition (severe Chronic ): Evidenced By Suboptimal Energy Intake (Severe),Weight Loss (Severe), Physical Changes (Moderate) Intake Problem Inadequate Oral Intake Status Inactive Problem Clinical Problem Acute Disease or Injury Related Malnutrition Status Inactive Problem Chronic Disease or Condition Related Malnutrition Etiology severe protein-calorie malnutrition in the context of acute illness related to altered GI function and inability to take adequate energy/pro Signs/Symptoms as evidenced by 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 BMI 16.1 Status Active Problem Recommendation Dietitian 1. Recommend advanced diet as tolerated to transitional Recommendations/ diet with goal of regular. Continue ONS w/ meals for Changes increased nutrition if consumed. 2. Will order bag #4: Clinimix E- 1.5L of 8% AA/14% Dextrose at 63ml/hr 3. Will monitor for signs of refeeding syndrome due to prolonged NPO. Weight / BMI Weight Weight: 113 lb 15.664 oz Body Mass Index (BMI) 15.9 ABG / Lab / Microbiology Data 03/25/25 05:46 03/25/25 05:46 Laboratory: Laboratory Results - last 24 hr 03/25/25 05:46: Iron 19 L, TIBC 130 L, Iron Saturation 14.6, Unsaturated IBC 111 L, Ferritin 1260 H 03/25/25 18:11: POC Glucose 123 H 03/26/25 00:15: POC Glucose 122 H 03/26/25 05:57: POC Glucose 129 H 03/26/25 07:19: Phosphorus 2.4 L, Magnesium 2.2 Microbiology: Microbiology 03/06/25 09:24 Stool Stool Occult Blood (DESHAUN) - Final Occult Blood Positive D/C Instructions DC O2, CPAP, BIPAP Needs Home O2 Discharge instructions: No Meaningful Use Info Meaningful Use Meaningful Use Diagnoses (Choose all that apply): None applicable Ischemic Stroke Statin Dosing Therapy Reference: STATIN DOSE THERAPY REFERENCE: * Patients > 75 years receive moderate or high dose statin therapy. * Patients 75 years or YOUNGER should receive HIGH intensity statin dose unless contraindicated. You will be required to document reason for non-treatment if statin daily dose does not meet guidelines. HIGH DOSE STATIN THERAPY DAILY Atorvastatin > than or = to 40 mg Rosuvastatin > than or = to 20 mg Amlodipine + Atorvastatin > than or = to 2.5/40 mg Ezetimibe + Simvastatin 10/80 mg Simvastatin 80mg Discharge Plan Admission Admit Date/Time: 03/06/25 11:40 Attending Provider: Nic Flynn Primary Care Provider: Brent Martinez Consulting Providers: Katlin Sullivan; Joshua Morrow; Sukumar Valenzuela; Krystian Olivares; Noé Loving; Raúl Kaplan; Ernesto Srivastava; Angel Dubose; Tootie Briceño; Jose Antonio Urrutia; Rodrick Rai; William Oliva; Darlene Lai; Jordy Cash; Shwetha Duke; Parth Israel; Gumaro Harris; Justin Whitehead; Micha Enamorado; Neelam Garcia; Ben Hopkins; Peng Paris; Javed Richter; Con Martinez; Sukhjinder Rodriguez; Shaquille Conteh; Tono Dawson; Gregg Bianchi; Raúl Swanson; Autumn Jaquez; Diann Recinos; Goldie Silva; Lubna Mcgill NP; Concetta Brown Discharge Orders/Prescriptions Prescriptions: No Action aspirin [Adult Low Dose Aspirin] 81 mg tablet,delayed release (DR/EC) 81 mg PO DAILY pravastatin 40 MG tablet 40 mg PO QHS Patient Comments: TAKE 1 TABLET EVERY DAY escitalopram oxalate 10 mg tablet 10 mg PO DAILY midodrine 5 mg Tablet 10 mg PO TIDCM Qty: 0 0RF Ensure Plus High Protein 0.08 gram-1.5 kcal/mL Liquid 120 ml PO 4X/DAY Qty: 0 0RF acetaminophen 325 mg Tablet 650 mg PO Q4H PRN (Reason: Fever, pain 1-10) ipratropium-albuterol 0.5 mg-3 mg(2.5 mg base)/3 mL Solution For Nebulization 3 ml inhalation Q6H PRN (Reason: dyspnea/wheezing) albuterol sulfate 2.5 mg /3 mL (0.083 %) Solution For Nebulization 2.5 mg inhalation Q2H PRN (Reason: Dyspnea, wheezing) tamsulosin 0.4 mg Capsule 0.8 mg PO 1730 Referrals / Follow Up: Brent Martinez DO [Primary Care Provider] - Disposition Discharge Orders: Discharge Patient (Routine); Ordered 03/26/25 Ordered By: Dr. Nic Flynn Charges/Coding Visit Charges Inpatient E&M: [id number] Disch Hosp >30min
[2025-03-26 14:06] VITALS: BP 145/76; PULSE 91; RESP 27; TEMP 36.5; O2SAT 94
== END 2025-03-26 14:57 | disposition hospice, inpatient (51) | DRG 368 ==
LOC: ED 11:29 → MS3 16:33 → ICU 03-11 08:38 → PCU 03-14 15:54
PROVIDERS: Internal Medicine; Internal Medicine Gastroenterology; Internal Medicine Pulmonary Disease; Physician Assistant; Admitting Provider Student in an Organized Health Care Education/Training Program; Emergency Provider Surgery; PCP Family Medicine; Visit Provider Family Medicine
PROC: 0DJ08ZZ Inspection of Upper Intestinal Tract, Via Natural or Artificial Opening Endoscopic (ICD-10-PCS; CPT 43235; principal; 2025-03-07 16:25)
DX: K22.6 Gastro-esophageal laceration-hemorrhage syndrome (principal); J96.01 Acute respiratory failure with hypoxia; J69.0 Pneumonitis due to inhalation of food and vomit; J86.9 Pyothorax without fistula; E43 Unspecified severe protein-calorie malnutrition; K56.600 Partial intestinal obstruction, unspecified as to cause; J90 Pleural effusion, not elsewhere classified; D62 Acute posthemorrhagic anemia; I47.10 Supraventricular tachycardia, unspecified; Z68.1 Body mass index [BMI] 19.9 or less, adult; K56.0 Paralytic ileus; Z66 Do not resuscitate; J44.9 Chronic obstructive pulmonary disease, unspecified; I10 Essential (primary) hypertension; F32.A Depression, unspecified; I48.0 Paroxysmal atrial fibrillation; E86.9 Volume depletion, unspecified; E78.5 Hyperlipidemia, unspecified; K29.60 Other gastritis without bleeding; D72.820 Lymphocytosis (symptomatic); I95.1 Orthostatic hypotension; R19.5 Other fecal abnormalities; K21.00 Gastro-esophageal reflux disease with esophagitis, without bleeding; E87.6 Hypokalemia; K59.89 Other specified functional intestinal disorders; R62.7 Adult failure to thrive; T44.4X5A Adverse effect of predominantly alpha-adrenoreceptor agonists, initial encounter; K63.89 Other specified diseases of intestine; R91.1 Solitary pulmonary nodule; N40.1 Benign prostatic hyperplasia with lower urinary tract symptoms; R33.8 Other retention of urine; Z79.82 Long term (current) use of aspirin; Z79.899 Other long term (current) drug therapy; Z87.891 Personal history of nicotine dependence
CPT/HCPCS: 32555; 36415; 36569; 36600; 51702; 71045; 71046; 71275; 74018; 74019; 74177; 74250; 80048; 80053; 80076; 81001; 82085; 82164; 82274; 82378; 82533; 82550; 82728; 82784; 82785; 82787; 82803; 82945; 82962; 83516; 83540; 83550; 83605; 83615; 83690; 83735; 83880; 84100; 84132; 84155; 84157; 84165; 84478; 85025; 85379; 86037; 86160; 86162; 86200; 86225; 86235; 86255; 86301; 86334; 86431; 86480; 88108; 88305; 88313; 88341; 88342; 89050; 93005; 93306; 94640; 94660; 94668; 94762; 97162; 97166; 97530; 97535; 97802; 97803; 99285; C1889; Q9967; A4216; J1938; J2405